=== PATIENT | female | born 1935 | race African-American/Black ===

== ENCOUNTER 2018-12-20 02:10 | Inpatient (IN) | payer MEDICARE, MEDICAID ==
[2018-12-20] VITALS (14 sets, daily range): BP systolic 92–122; BP diastolic 41–82
[~2018-12-20] VITALS: Ht 167.6 cm; Wt 96.7 kg
--- NOTE | 2018-12-20 02:23 | Emergency Room Report ---
History of Present Illness General Chief Complaint: Altered Mental Status Source: Medical Record, EMS Present Illness HPI This is an 83-year-old halfway patient with multiple medical problems including a colostomy bag. She presents with altered mental status and fever. Onset today. Per EMS, she is been having fever on and off all day. 2 hours prior to arrival she became unresponsive with hypoxia. On arrival she was unresponsive and hypoxic. Oxygenation was 72% on room air. She also very warm to the touch. At baseline, patient able to talk. History is limited because of her condition. No cough or congestion. Unknown vomiting. Allergies: Coded Allergies: ALLOPURINOL (Verified Allergy, Unknown, 12/20/18) Patient History Past Medical History: see triage record, old chart reviewed Past Surgical History: other Pertinent Family History: none Social History: Denies: smoking Now: No Immunizations: other Reviewed Nursing Documentation: PMH: Agreed; PSxH: Agreed Review of Systems Constitutional: Reports: fever, weakness Eye: Denies: eye pain, blurred vision ENT: Denies: ear pain, nose congestion, throat swelling Respiratory: Denies: cough, shortness of breath Cardiovascular: Denies: chest pain, palpitations Gastrointestinal: Denies: abdominal pain, diarrhea, nausea, vomiting Musculoskeletal: Denies: back pain, joint pain Skin: Denies: rash Neurological: Denies: headache, numbness Endocrine: Denies: increased thirst, increased urine Hematologic/Lymphatic: Denies: easy bruising All Other Systems: negative except mentioned in HPI Physical Exam Vital Signs Date Time Temp Pulse Resp B/P (MAP) Pulse Ox O2 Delivery O2 Flow Rate FiO2 12/20/18 02:11 99.9 116 22 94/44 (61) 94 Non-Rebreather 15.0 Vitals with fever, hypoxia, hypotension Sp02 EP Interpretation: reviewed, abnormal General Appearance: severe distress, lethargic, Chronically Ill Head: normocephalic, atraumatic Eyes: bilateral eye PERRL, bilateral eye EOMI ENT: dry mucus membranes Neck: full range of motion, supple, no meningismus Respiratory: chest non-tender, respiratory distress, decreased breath sounds, accessory muscle use, rhonchi Cardiovascular #1: regular rate, rhythm, no murmur, tachycardia Gastrointestinal: normal bowel sounds, non tender, no mass, no organomegaly, no bruit, non-distended, other - Reducible abdominal wall hernia Rectal: other - large sacral Stage 4 ulcer Musculoskeletal: back normal, normal range of motion Psychiatric: mood/affect normal Skin: warm/dry Procedures Critical Care Time Critical Care Time Critical care is mandated in this patient who presented with acute respiratory failure. Patient require my urgent intervention to attenuate the risks of metabolic collapse which may lead to cardiovascular collapse and . Critical care time is 35 minutes excluding any reportable procedure. Critical care time included evaluation, multiple reevaluation, looking at old charts, interpreting laboratory and diagnostic data, discussing case with patient and family and consultants, and charting. Intubation Intubation : Consent: Emergent Intubation Method: orotracheal Tube Size (cm): 7.5 Medications: Etomidate, Succinylcholine Breath Sounds after Intubation: equal Intubation Complications: no complications Post Intubation Xray: Yes Progress/Xray Impression: Successful intubation Attempts: One Patient Tolerated: Well Complications: None Medical Decision Making Diagnostic Impression: Primary Impression: Respiratory failure with hypoxia Qualified Codes: J96.01 - Acute respiratory failure with hypoxia Additional Impressions: Sepsis Qualified Codes: A41.9 - Sepsis, unspecified organism HCAP (healthcare-associated pneumonia) ARF (acute renal failure) Qualified Codes: N17.9 - Acute kidney failure, unspecified Severe dehydration Hyperglycemia due to type 2 diabetes mellitus Qualified Codes: E11.65 - Type 2 diabetes mellitus with hyperglycemia; 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 She has pneumonia. Initially she improved on BiPAP. However, oxygenation started dropping and she became more tachycardic. I decided to intubate her for airway protection. Her oropharynx shows very thick dry mucus. Chest x-ray showed worsening right hilar infiltrates I suspect she has a large mucous plugging. With suctioning and mechanical ventilation, oxygenation improved and blood pressure improved. IV fluids given per 30 cc/kg. Heart rate also improved. Patient will be admitted to the ICU under service of Dr. Walden. I contacted him for admission. Sepsis reevaluation: Vital signs: Rate 115, blood pressure 96/62, pulse oxygen 95% General: Improved mentation. More responsive to pain Cardiovascular: Improved heart rate. Pressure improved. Lungs: Improved aeration and oxygen saturation. Abdomen: Soft Extremities: No mottling Skin: Warm to touch Capillary refills: Less than 2 seconds Lab Results Impression Labs with severe electrolyte abnormality EKG Diagnostic Results Rate: tachycardiac Rhythm: NSR ST Segments: other - NSST changes Rhythm Strip Diag. Results Rate: 132 Rhythm: NSR Chest X-Ray Diagnostic Results Chest X-Ray Diagnostic Results #1: Chest X-Ray Ordered: Yes # of Views/Limited/Complete: 1 View Indication: Shortness of Breath EP Interpretation: Yes Interpretation: no effusion, no pneumothorax, other - perHilar infiltrates, right greater than left Impression: Other - Perihilar infiltrates Electronically Signed by: Bebeto Arechiga MD Chest X-Ray Diagnostic Results #2: Chest X-Ray Ordered: Yes # of Views/Limited/Complete: 1 View Indication: Shortness of Breath EP Interpretation: Yes Interpretation: no effusion, no pneumothorax, other - s/p intubation. RUL and perihilar infiltrates Impression: Other - s/p intubation. increasing rt upper lobe opacification. Electronically Signed by: Bebeto Arechiga MD Last Vital Signs Date Time Temp Pulse Resp B/P (MAP) Pulse Ox O2 Delivery O2 Flow Rate FiO2 12/20/18 02:11 99.9 116 22 94/44 (61) 94 Non-Rebreather 15.0 Status: improved Disposition: ADMITTED INPATIENT Condition: Critical Bebeto Arechiga MD Dec 20, 2018 02:23
[2018-12-20] MEDS ORDERED: ASCORBIC ACID500 MG GT (02:26)
[2018-12-20] MEDS ORDERED: CENTRUM GT (02:26)
[2018-12-20] MEDS ORDERED: Acetaminophen 650 MG SUPP RECTAL ONE (02:30)
[2018-12-20] MEDS ORDERED: Sodium Chloride 2,500 ML IVLG ONE (02:30)
[2018-12-20] MEDS ORDERED: ZOFRAN4 M3 GT (02:38)
[2018-12-20] MEDS ORDERED: ZINC SULFATE220 M1 GT (02:38)
[2018-12-20] MEDS ORDERED: ACETAMINOPHEN325 M1 GT (02:38)
[2018-12-20] MEDS ORDERED: HEPARIN SO5000 UNIT2 SUBQ (02:38)
[2018-12-20] MEDS ORDERED: RISPERIDONE0.25 MG GT (02:38)
[2018-12-20] MEDS ORDERED: HYDRALAZINE HCL10 MG ORAL (02:38)
[2018-12-20] MEDS ORDERED: SOD CITRATE-CIT15 ML PO (02:38)
[2018-12-20] MEDS ORDERED: PHOS-NAK PACKE1 EAC1 GT (02:38)
[2018-12-20] MEDS ORDERED: FOLIC ACID1 MG GT (02:38)
[2018-12-20] MEDS ORDERED: PRO-STAT LIQUID30 ML GT (02:38)
[2018-12-20 02:53] LABS: BILIRUBIN, URINE NEGATIVE (NEGATIVE); COLOR,URINE PALE YELLOW; GLUCOSE, URINE (UA) 2+ (NEGATIVE); KETONES,URINE NEGATIVE (NEGATIVE); LEUKOCYTE ESTERASE ,URINE 3+ (NEGATIVE); NITRITE,URINE NEGATIVE (NEGATIVE); PH,URINE 6 (4.5-8.0); PROTEIN,URINE 3+ (NEGATIVE); UROBILINOGEN,URINE NORMAL MG/DL (0.0-1.0)
[2018-12-20 03:02] LABS: HEMATOCRIT 37.1 % (37.0-47.0); HEMOGLOBIN 11.4 G/DL (12.0-16.0); MEAN CORPUSCULAR VOLUME 87 FL (80-99); PLATELET COUNT 399 K/UL (150-450); RED BLOOD COUNT 4.28 M/UL (4.20-5.40); RED CELL DISTRIBUTION WIDTH 16.6 % (11.6-14.8); WHITE BLOOD COUNT 19.9 K/UL (4.8-10.8)
[2018-12-20 03:04] LABS: APPEARANCE,URINE CLOUDY
[2018-12-20 03:12] LABS: ALANINE AMINOTRANSFERASE 23 U/L (12-78); ALBUMIN 2.4 G/DL (3.4-5.0); ALBUMIN/GLOBULIN RATIO 0.3 (1.0-2.7); ALKALINE PHOSPHATASE 134 U/L (46-116); ANION GAP 11 mmol/L (5-15); ASPARTATE AMINO TRANSFERASE 15 U/L (15-37); BILIRUBIN,TOTAL 0.2 MG/DL (0.2-1.0); BLOOD UREA NITROGEN 150 mg/dL (7-18); CARBON DIOXIDE 36 MMOL/L (21-32); CHLORIDE 112 MMOL/L (98-107); CKMB < 0.5 NG/ML (0.0-3.6); CREATINE KINASE 141 U/L (26-308); CREATININE 2.8 MG/DL (0.55-1.30); POTASSIUM 5.4 MMOL/L (3.5-5.1); SODIUM 158 MMOL/L (136-145)
[2018-12-20] MEDS ORDERED: Cefepime HCl 1 GM in D5W 55 ML IVPB ONE (03:15)
[2018-12-20] MEDS ORDERED: Enoxaparin 80mg Inj SUBQ ONE (03:15)
[2018-12-20] MEDS ORDERED: Insulin Human Regular 100units/ml 3ml IV ONE (04:00)
--- NOTE | 2018-12-20 04:48 | Emergency Room Report ---
History of Present Illness General Chief Complaint: Altered Mental Status Source: Medical Record, EMS Present Illness Allergies: Coded Allergies: ALLOPURINOL (Verified Allergy, Unknown, 12/20/18) Patient History Now: No Nursing Documentation-PMH Hx Hypertension: Yes Hx COPD: Yes - SOB Hx Gastrointestinal Problems: Yes - Dysphagia, Gastrostomy, Colostomy History Of Psychiatric Problem: Yes - psychosis Hx Cerebrovascular Accident: Yes - atherosclerosis of aorta, anemia Physical Exam Vital Signs Date Time Temp Pulse Resp B/P (MAP) Pulse Ox O2 Delivery O2 Flow Rate FiO2 12/20/18 02:11 99.9 116 22 94/44 (61) 94 Non-Rebreather 15.0 12/20/18 02:15 100 Procedures Central Line Central Line : Consent: Emergent Central Line Lumen: triple Maximal Sterile Barrier Tech: yes cap, yes mask, yes sterile gown, yes sterile gloves, yes large sterile sheet, yes hand hygiene, yes chlorhexidine prep Central Line Postion: internal jugular (R) Anesthesia: Lidocaine cc's of anesthesia: 5 Complications: none Central Line Post Position: sutured Attempts: One Patient Tolerated: Well Complications: None Medical Decision Making Diagnostic Impression: Primary Impression: Respiratory failure with hypoxia Qualified Codes: J96.01 - Acute respiratory failure with hypoxia Additional Impressions: Sacral decubitus ulcer, stage IV HCAP (healthcare-associated pneumonia) ARF (acute renal failure) Qualified Codes: N17.9 - Acute kidney failure, unspecified Hyperglycemia due to type 2 diabetes mellitus Qualified Codes: E11.65 - Type 2 diabetes mellitus with hyperglycemia; 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 increase areation. Impression: Other - s/p central line placement. Electronically Signed by: Bebeto Arechiga MD Last Vital Signs Date Time Temp Pulse Resp B/P (MAP) Pulse Ox O2 Delivery O2 Flow Rate FiO2 12/20/18 03:31 88 18 102/50 98 100 12/20/18 03:11 98.5 12/20/18 02:21 Bi-pap 12/20/18 02:21 15.0 Disposition: ADMITTED INPATIENT Condition: Critical Referrals: NON PHYSICIAN (PCP) Bebeto Arechiga MD Dec 20, 2018 04:48
[2018-12-20] MEDS ORDERED: Midazolam 2mg/2ml Inj IVP ONE (05:00)
[2018-12-20 07:56] LABS: ALANINE AMINOTRANSFERASE 19 U/L (12-78); ALBUMIN 1.4 G/DL (3.4-5.0); ALBUMIN/GLOBULIN RATIO 0.2 (1.0-2.7); ALKALINE PHOSPHATASE 89 U/L (46-116); ANION GAP 9 mmol/L (5-15); ASPARTATE AMINO TRANSFERASE 18 U/L (15-37); BILIRUBIN,TOTAL 0.2 MG/DL (0.2-1.0); BLOOD UREA NITROGEN 121 mg/dL (7-18); CALCIUM 7.9 MG/DL (8.5-10.1); CARBON DIOXIDE 27 MMOL/L (21-32); CHLORIDE 126 MMOL/L (98-107); CHOLESTEROL 95 MG/DL (< 200); CREATINE KINASE 125 U/L (26-308); CREATININE 2.1 MG/DL (0.55-1.30); FERRITIN 367 NG/ML (8-388); GAMMA GLUTAMYL TRANSPEPTIDASE 80 U/L (5-85); HDL CHOLESTEROL 38 MG/DL (40-60); PHOSPHORUS 3.3 MG/DL (2.5-4.9); POTASSIUM 3.5 MMOL/L (3.5-5.1); TRIGLYCERIDES 121 MG/DL (30-150)
[2018-12-20 07:58] LABS: SODIUM 161 MMOL/L (136-145)
[2018-12-20 08:09] LABS: BASOPHILS % (AUTO) 0.2 % (0.0-2.0); EOSINOPHILS % (AUTO) 0.5 % (0.0-3.0); HEMATOCRIT 26.8 % (37.0-47.0); HEMOGLOBIN 8.2 G/DL (12.0-16.0); MEAN CORPUSCULAR VOLUME 88 FL (80-99); MONOCYTES % (AUTO) 1.8 % (1.0-10.0); NEUTROPHILS % (AUTO) 82.6 % (45.0-75.0); PLATELET COUNT 262 K/UL (150-450); RED BLOOD COUNT 3.05 M/UL (4.20-5.40); RED CELL DISTRIBUTION WIDTH 16.4 % (11.6-14.8); WHITE BLOOD COUNT 14.5 K/UL (4.8-10.8)
[2018-12-20 08:31] LABS: AMMONIA 32 umol/L (11-32)
[2018-12-20 09:26] LABS: % IRON SATURATION 12 % (15-50); IRON 17 ug/dL (50-175); TOTAL IRON BINDING CAPACITY 144 ug/dL (250-450)
--- NOTE | 2018-12-20 09:46 | Diagnostic Imaging Report ---
Indication: Post line placement Technique: One view of the chest Comparison: 2 hours earlier Findings: Interim placement right jugular central venous catheter, tip which projects at the level the high right atrium. There is insufficient opacification of the right upper lobe, also evident previously and probably not significantly changed allowing for differences in rotation. There are overlying defibrillator paddles. There is some haziness at the left lateral lung base, may reflect some pleural fluid, not evident previously. Calcified granulomata are seen in the left lung and perihilar region. Stable satisfactory position of endotracheal tube. No pneumothorax Impression: Status post right jugular central venous catheter placement. No definite radiographically evident complication Apparent right upper lobe atelectasis, also evident previously. Suspect new or increased left pleural effusion
--- NOTE | 2018-12-20 09:50 | Critical Care Progress Note ---
Assessment/Plan Assessment/Plan Respiratory failure, acute sepsis hypotension sacral ulcer hypernatremia acute renal failure severe protein calorie malnutrition hypoxemia, severe hypercapnia PLAN care noted an reviewed hypervent hypoxemia- taper oxygen PEEP and add antibiotics hypotonic fluids supportive care ICU care medications/laboratory data/nursing notes/ICU care reviewed in detail note reviewed and edited care discussed with RN and RT ICU time spent 55 minutes Critical Care - Subjective Interval Events: on vent reviewed care and discussed Condition: critical EKG Rhythm: Sinus Tachycardia I&O: Intake and Output 12/19/18 12/20/18 18:59 06:59 Output Total 500 ml Balance -500 ml Output Urine Total 500 ml Critical Care - Objective ET-Tube: 7.5 ET Position: 23 Last 24 Hour Vital Signs Date Time Temp Pulse Resp B/P (MAP) Pulse Ox O2 Delivery O2 Flow Rate FiO2 12/20/18 08:30 97 15 100 12/20/18 08:00 Mechanical Ventilator 12/20/18 07:30 83/54 12/20/18 06:48 95 25 100 12/20/18 06:06 100 12/20/18 05:51 Mechanical Ventilator 12/20/18 05:41 98.5 98 18 98/60 100 Mechanical Ventilator 15.0 100 12/20/18 05:20 110 18 100 12/20/18 04:53 98 18 98/82 100 Mechanical Ventilator 100 12/20/18 03:31 88 18 102/50 98 100 12/20/18 03:11 98.5 12/20/18 02:52 117 28 100 12/20/18 02:21 101.2 142 22 94/44 90 Bi-pap 12/20/18 02:21 142 22 Non-Rebreather 15.0 12/20/18 02:15 144 44 98 Bi-Pap 100 12/20/18 02:15 144 44 98 Full Face 100 12/20/18 02:11 99.9 116 22 94/44 (61) 94 Non-Rebreather 15.0 Labs: Labs Test 12/20/18 02:10 12/20/18 02:30 12/20/18 03:35 12/20/18 03:54 White Blood Count 19.9 K/UL (4.8-10.8) Red Blood Count 4.28 M/UL (4.20-5.40) Hemoglobin 11.4 G/DL (12.0-16.0) Hematocrit 37.1 % (37.0-47.0) Mean Corpuscular Volume 87 FL (80-99) Mean Corpuscular Hemoglobin 26.7 PG (27.0-31.0) Mean Corpuscular Hemoglobin Concent 30.8 G/DL (32.0-36.0) Red Cell Distribution Width 16.6 % (11.6-14.8) Platelet Count 399 K/UL (150-450) Mean Platelet Volume 7.6 FL (6.5-10.1) Neutrophils (%) (Auto) % (45.0-75.0) Lymphocytes (%) (Auto) % (20.0-45.0) Monocytes (%) (Auto) % (1.0-10.0) Eosinophils (%) (Auto) % (0.0-3.0) Basophils (%) (Auto) % (0.0-2.0) Sodium Level 158 MMOL/L (136-145) Potassium Level 5.4 MMOL/L (3.5-5.1) Chloride Level 112 MMOL/L (98-107) Carbon Dioxide Level 36 MMOL/L (21-32) Anion Gap 11 mmol/L (5-15) Blood Urea Nitrogen 150 mg/dL (7-18) Creatinine 2.8 MG/DL (0.55-1.30) Estimat Glomerular Filtration Rate mL/min (>60) Glucose Level 528 MG/DL (74-106) Lactic Acid Level 3.80 mmol/L (0.4-2.0) 7.50 mmol/L (0.66-2.22) Calcium Level 10.0 MG/DL (8.5-10.1) Total Bilirubin 0.2 MG/DL (0.2-1.0) Aspartate Amino Transf (AST/SGOT) 15 U/L (15-37) Alanine Aminotransferase (ALT/SGPT) 23 U/L (12-78) Alkaline Phosphatase 134 U/L (46-116) Total Creatine Kinase 141 U/L (26-308) Creatine Kinase MB < 0.5 NG/ML (0.0-3.6) Creatine Kinase MB Relative Index 0.3 Troponin I 0.000 ng/mL (0.000-0.056) Total Protein 9.5 G/DL (6.4-8.2) Albumin 2.4 G/DL (3.4-5.0) Globulin 7.1 g/dL Albumin/Globulin Ratio 0.3 (1.0-2.7) Urine Color Pale yellow Urine Appearance Cloudy Urine pH 6 (4.5-8.0) Urine Specific [place] 1.015 (1.005-1.035) Urine Protein 3+ (NEGATIVE) Urine Glucose (UA) 2+ (NEGATIVE) Urine Ketones Negative (NEGATIVE) Urine Blood 5+ (NEGATIVE) Urine Nitrite Negative (NEGATIVE) Urine Bilirubin Negative (NEGATIVE) Urine Urobilinogen Normal MG/DL (0.0-1.0) Urine Leukocyte Esterase 3+ (NEGATIVE) Urine RBC Tntc /HPF (0 - 2) Urine WBC Tntc /HPF (0 - 2) Urine Squamous Epithelial Cells Few /LPF (NONE/OCC) Urine Bacteria Many /HPF (NONE) Arterial Blood pH 7.316 (7.350-7.450) Arterial Blood Partial Pressure CO2 46.1 mmHg (35.0-45.0) Arterial Blood Partial Pressure O2 73.0 mmHg (75.0-100.0) Arterial Blood HCO3 23.0 mmol/L (22.0-26.0) Arterial Blood Oxygen Saturation 92.0 % (95-100) Arterial Blood Base Excess -3.1 (-2-2) Brock Test Positive Test 12/20/18 07:00 12/20/18 08:00 Sodium Level 161 MMOL/L (136-145) Potassium Level 3.5 MMOL/L (3.5-5.1) Chloride Level 126 MMOL/L (98-107) Carbon Dioxide Level 27 MMOL/L (21-32) Anion Gap 9 mmol/L (5-15) Blood Urea Nitrogen 121 mg/dL (7-18) Creatinine 2.1 MG/DL (0.55-1.30) Estimat Glomerular Filtration Rate mL/min (>60) Glucose Level 386 MG/DL (74-106) Lactic Acid Level 2.40 mmol/L (0.4-2.0) Uric Acid 8.3 MG/DL (2.6-7.2) Calcium Level 7.9 MG/DL (8.5-10.1) Phosphorus Level 3.3 MG/DL (2.5-4.9) Magnesium Level 1.7 MG/DL (1.8-2.4) Iron Level 17 ug/dL (50-175) Total Iron Binding Capacity 144 ug/dL (250-450) Percent Iron Saturation 12 % (15-50) Unsaturated Iron Binding 127 ug/dL (112-346) Ferritin 367 NG/ML (8-388) Total Bilirubin 0.2 MG/DL (0.2-1.0) Gamma Glutamyl Transpeptidase 80 U/L (5-85) Aspartate Amino Transf (AST/SGOT) 18 U/L (15-37) Alanine Aminotransferase (ALT/SGPT) 19 U/L (12-78) Alkaline Phosphatase 89 U/L (46-116) Ammonia 32 umol/L (11-32) Total Creatine Kinase 125 U/L (26-308) Troponin I 0.135 ng/mL (0.000-0.056) C-Reactive Protein, Quantitative 21.5 mg/dL (0.00-0.90) Pro-B-Type Natriuretic Peptide 861 pg/mL (0-125) Total Protein 7.2 G/DL (6.4-8.2) Albumin 1.4 G/DL (3.4-5.0) Globulin 5.8 g/dL Albumin/Globulin Ratio 0.2 (1.0-2.7) Triglycerides Level 121 MG/DL (30-150) Cholesterol Level 95 MG/DL (< 200) LDL Cholesterol 48 mg/dL (<100) HDL Cholesterol 38 MG/DL (40-60) Cholesterol/HDL Ratio 2.5 (3.3-4.4) Vitamin B12 Level 653 PG/ML (193-986) Folate 79.6 NG/ML (8.6-58.9) Thyroid Stimulating Hormone (TSH) 1.246 uiU/mL (0.358-3.740) White Blood Count 14.5 K/UL (4.8-10.8) Red Blood Count 3.05 M/UL (4.20-5.40) Hemoglobin 8.2 G/DL (12.0-16.0) Hematocrit 26.8 % (37.0-47.0) Mean Corpuscular Volume 88 FL (80-99) Mean Corpuscular Hemoglobin 27.0 PG (27.0-31.0) Mean Corpuscular Hemoglobin Concent 30.7 G/DL (32.0-36.0) Red Cell Distribution Width 16.4 % (11.6-14.8) Platelet Count 262 K/UL (150-450) Mean Platelet Volume 7.2 FL (6.5-10.1) Neutrophils (%) (Auto) 82.6 % (45.0-75.0) Lymphocytes (%) (Auto) 15.0 % (20.0-45.0) Monocytes (%) (Auto) 1.8 % (1.0-10.0) Eosinophils (%) (Auto) 0.5 % (0.0-3.0) Basophils (%) (Auto) 0.2 % (0.0-2.0) Objective: Sp02 EP Interpretation: reviewed, normal General Appearance: normal inspection, well appearing, no apparent distress, sedated Head: normocephalic, atraumatic Eyes: bilateral eye normal inspection ENT: oral ETT Neck: normal inspection, full range of motion, supple, no meningismus, carotid 2+ Respiratory: decreased breath sounds, moderate breath sounds Cardiovascular #1: regular rhythm, no murmur without MRG; tachy Gastrointestinal: non tender, soft, non-distended, no guarding, no rebound Musculoskeletal: no CCE Neurologic: sedated Micro: Microbiology Date/Time Source Procedure Growth Status 12/20/18 04:00 Rectum Received Accucheck: 490 Juan Flanagan MD Dec 20, 2018 09:50
--- NOTE | 2018-12-20 10:58 | Consultation ---
Consult Note Consult Note This is an 83-year-old assisted patient with multiple medical problems including a colostomy bag. She presents with altered mental status and fever. Onset today. Per EMS, she is been having fever on and off all day. 2 hours prior to arrival she became unresponsive with hypoxia. On arrival she was unresponsive and hypoxic. Oxygenation was 72% on room air. She also very warm to the touch. At baseline, patient able to talk. History is limited because of her condition. No cough or congestion. Unknown vomiting. Allergies: Coded Allergies: ALLOPURINOL (Verified Allergy, Unknown, 12/20/18) rxamined in ICU on Vent discussed with HELEN Albarado Data reviewed . Assessment/Plan Acute renal failure- Multifactorial, Pre Renal on Renal DM OOC Respiratory failure, acute- on Vent in ICU sepsis / Shock sacral ulcer hypernatremia due to water deficit severe protein calorie malnutrition and hypoalbuminemia hypoxemia, severe PEG COlostomy Severe Anemia underlying fluids- water via GT antibiotics pressors pulm support 2 Units PRBCs Servando Cifuentes MD Dec 20, 2018 10:58
--- NOTE | 2018-12-20 11:01 | Diagnostic Imaging Report ---
Indication: Shortness of breath Technique: One view of the chest Comparison: none Findings: Patient is rotated to the left. Left hemidiaphragm is somewhat obscured and the left costophrenic angle is blunted, pleural effusion deemed likely. There is right perihilar and infrahilar infiltrate noted. The remainder the lungs are clear. Calcified granuloma is seen in the left midlung. Calcified granulomatous nodes are also seen in the left pulmonary hilum and mediastinum. Impression: Left-sided pleural effusion and possible left basilar parenchymal consolidation Right perihilar infiltrate Evidence old granulomatous disease This agrees with the preliminary interpretation provided overnight by [facility] service.
--- NOTE | 2018-12-20 11:05 | Diagnostic Imaging Report ---
Indication: Post intubation Technique: One view of the chest Comparison: 20 minutes earlier Findings: Interim endotracheal intubation, endotracheal tube tip projecting approximately 5 cm above the wanda, in satisfactory position. Interim development of atelectasis of the right upper lobe. There is resultant elevation of the right hemidiaphragm. Interim improvement in aeration of the left lung, with some residual atelectasis at the left lung base. Calcified granulomata are again demonstrated on the left. Impression: Satisfactory endotracheal intubation Interim complete atelectasis of the right upper lobe Improved aeration of the left lung Other stable findings as noted. This agrees with the preliminary interpretation provided overnight by [facility] service.
--- NOTE | 2018-12-20 11:28 | Consultation ---
History of Present Illness General Chief Complaint: Altered Mental Status Present Illness Allergies: Coded Allergies: ALLOPURINOL (Verified Allergy, Unknown, 12/20/18) Medication History Scheduled Amino Acids/Protein Hydrolys (Pro-Stat Liquid), 30 ML GT THREE TIMES A DAY, ( Reported) Ascorbic Acid* (Ascorbic Acid*), 500 MG GT DAILY, (Reported) Citric Acid/Sodium Citrate (Sod Citrate-Citric Acid Soln), 30 ML PO BID, ( Reported) Folic Acid* (Folic Acid*), 1 MG GT DAILY, (Reported) Heparin Sod (Porcine) (Heparin Sodium*), 5,000 UNITS SUBQ EVERY 12 HOURS, ( Reported) Naph,Mb-Db/K Ph,Mbdb (Phos-Nak Packet), 1 EACH GT TID, (Reported) Risperidone (Risperidone), 0.25 MG GT HS, (Reported) Zinc Sulfate (Zinc Sulfate*), 220 MG GT DAILY, (Reported) [centrum liquid], 15 ML GT DAILY, (Reported) Scheduled PRN Acetaminophen* (Acetaminophen 325MG Tablet*), 325 MG GT Q4H PRN for Mild Pain/ Temp > 100.5, (Reported) Hydralazine Hcl* (Hydralazine Hcl*), 10 MG ORAL Q4HR PRN for For High Blood Pressure, (Reported) Ondansetron* (Zofran*), 4 MG GT Q6H PRN for Nausea & Vomiting, (Reported) Patient History Healthcare decision maker Resuscitation status Full Code Advanced Directive on File No Physical Exam Last 24 Hour Vital Signs Date Time Temp Pulse Resp B/P (MAP) Pulse Ox O2 Delivery O2 Flow Rate FiO2 12/20/18 10:34 107 15 100 12/20/18 08:30 97 15 100 12/20/18 08:00 Mechanical Ventilator 12/20/18 07:30 83/54 12/20/18 06:48 95 25 100 12/20/18 06:06 100 12/20/18 05:51 Mechanical Ventilator 12/20/18 05:41 98.5 98 18 98/60 100 Mechanical Ventilator 15.0 100 12/20/18 05:20 110 18 100 12/20/18 04:53 98 18 98/82 100 Mechanical Ventilator 100 12/20/18 03:31 88 18 102/50 98 100 12/20/18 03:11 98.5 12/20/18 02:52 117 28 100 12/20/18 02:21 101.2 142 22 94/44 90 Bi-pap 12/20/18 02:21 142 22 Non-Rebreather 15.0 12/20/18 02:15 144 44 98 Bi-Pap 100 12/20/18 02:15 144 44 98 Full Face 100 12/20/18 02:11 99.9 116 22 94/44 (61) 94 Non-Rebreather 15.0 Intake and Output 12/19/18 12/20/18 18:59 06:59 Output Total 500 ml Balance -500 ml Output Urine Total 500 ml Laboratory Tests Test 12/20/18 02:10 12/20/18 02:30 12/20/18 03:35 12/20/18 03:54 White Blood Count 19.9 K/UL (4.8-10.8) H Red Blood Count 4.28 M/UL (4.20-5.40) Hemoglobin 11.4 G/DL (12.0-16.0) L Hematocrit 37.1 % (37.0-47.0) Mean Corpuscular Volume 87 FL (80-99) Mean Corpuscular Hemoglobin 26.7 PG (27.0-31.0) L Mean Corpuscular Hemoglobin Concent 30.8 G/DL (32.0-36.0) L Red Cell Distribution Width 16.6 % (11.6-14.8) H Platelet Count 399 K/UL (150-450) Mean Platelet Volume 7.6 FL (6.5-10.1) Neutrophils (%) (Auto) % (45.0-75.0) Lymphocytes (%) (Auto) % (20.0-45.0) Monocytes (%) (Auto) % (1.0-10.0) Eosinophils (%) (Auto) % (0.0-3.0) Basophils (%) (Auto) % (0.0-2.0) Sodium Level 158 MMOL/L (136-145) H Potassium Level 5.4 MMOL/L (3.5-5.1) H Chloride Level 112 MMOL/L (98-107) H Carbon Dioxide Level 36 MMOL/L (21-32) H Anion Gap 11 mmol/L (5-15) Blood Urea Nitrogen 150 mg/dL (7-18) H Creatinine 2.8 MG/DL (0.55-1.30) H Estimat Glomerular Filtration Rate mL/min (>60) Glucose Level 528 MG/DL (74-106) *H Lactic Acid Level 3.80 mmol/L (0.4-2.0) H 7.50 mmol/L (0.66-2.22) H Calcium Level 10.0 MG/DL (8.5-10.1) Total Bilirubin 0.2 MG/DL (0.2-1.0) Aspartate Amino Transf (AST/SGOT) 15 U/L (15-37) Alanine Aminotransferase (ALT/SGPT) 23 U/L (12-78) Alkaline Phosphatase 134 U/L (46-116) H Total Creatine Kinase 141 U/L (26-308) Creatine Kinase MB < 0.5 NG/ML (0.0-3.6) Creatine Kinase MB Relative Index 0.3 Troponin I 0.000 ng/mL (0.000-0.056) Total Protein 9.5 G/DL (6.4-8.2) H Albumin 2.4 G/DL (3.4-5.0) L Globulin 7.1 g/dL Albumin/Globulin Ratio 0.3 (1.0-2.7) L Urine Color Pale yellow Urine Appearance Cloudy Urine pH 6 (4.5-8.0) Urine Specific [place] 1.015 (1.005-1.035) Urine Protein 3+ (NEGATIVE) H Urine Glucose (UA) 2+ (NEGATIVE) H Urine Ketones Negative (NEGATIVE) Urine Blood 5+ (NEGATIVE) H Urine Nitrite Negative (NEGATIVE) Urine Bilirubin Negative (NEGATIVE) Urine Urobilinogen Normal MG/DL (0.0-1.0) Urine Leukocyte Esterase 3+ (NEGATIVE) H Urine RBC Tntc /HPF (0 - 2) H Urine WBC Tntc /HPF (0 - 2) H Urine Squamous Epithelial Cells Few /LPF (NONE/OCC) Urine Bacteria Many /HPF (NONE) H Arterial Blood pH 7.316 (7.350-7.450) Arterial Blood Partial Pressure CO2 46.1 mmHg (35.0-45.0) H Arterial Blood Partial Pressure O2 73.0 mmHg (75.0-100.0) L Arterial Blood HCO3 23.0 mmol/L (22.0-26.0) Arterial Blood Oxygen Saturation 92.0 % (95-100) L Arterial Blood Base Excess -3.1 (-2-2) L Brock Test Positive Test 12/20/18 07:00 12/20/18 08:00 Sodium Level 161 MMOL/L (136-145) *H Potassium Level 3.5 MMOL/L (3.5-5.1) Chloride Level 126 MMOL/L (98-107) H Carbon Dioxide Level 27 MMOL/L (21-32) Anion Gap 9 mmol/L (5-15) Blood Urea Nitrogen 121 mg/dL (7-18) H Creatinine 2.1 MG/DL (0.55-1.30) H Estimat Glomerular Filtration Rate mL/min (>60) Glucose Level 386 MG/DL (74-106) #H Lactic Acid Level 2.40 mmol/L (0.4-2.0) H Uric Acid 8.3 MG/DL (2.6-7.2) H Calcium Level 7.9 MG/DL (8.5-10.1) #L Phosphorus Level 3.3 MG/DL (2.5-4.9) Magnesium Level 1.7 MG/DL (1.8-2.4) L Iron Level 17 ug/dL (50-175) L Total Iron Binding Capacity 144 ug/dL (250-450) L Percent Iron Saturation 12 % (15-50) L Unsaturated Iron Binding 127 ug/dL (112-346) Ferritin 367 NG/ML (8-388) Total Bilirubin 0.2 MG/DL (0.2-1.0) Gamma Glutamyl Transpeptidase 80 U/L (5-85) Aspartate Amino Transf (AST/SGOT) 18 U/L (15-37) Alanine Aminotransferase (ALT/SGPT) 19 U/L (12-78) Alkaline Phosphatase 89 U/L (46-116) Ammonia 32 umol/L (11-32) Total Creatine Kinase 125 U/L (26-308) Troponin I 0.135 ng/mL (0.000-0.056) C-Reactive Protein, Quantitative 21.5 mg/dL (0.00-0.90) H Pro-B-Type Natriuretic Peptide 861 pg/mL (0-125) H Total Protein 7.2 G/DL (6.4-8.2) Albumin 1.4 G/DL (3.4-5.0) L Globulin 5.8 g/dL Albumin/Globulin Ratio 0.2 (1.0-2.7) L Triglycerides Level 121 MG/DL (30-150) Cholesterol Level 95 MG/DL (< 200) LDL Cholesterol 48 mg/dL (<100) HDL Cholesterol 38 MG/DL (40-60) L Cholesterol/HDL Ratio 2.5 (3.3-4.4) L Vitamin B12 Level 653 PG/ML (193-986) Folate 79.6 NG/ML (8.6-58.9) H Thyroid Stimulating Hormone (TSH) 1.246 uiU/mL (0.358-3.740) White Blood Count 14.5 K/UL (4.8-10.8) H Red Blood Count 3.05 M/UL (4.20-5.40) L Hemoglobin 8.2 G/DL (12.0-16.0) L Hematocrit 26.8 % (37.0-47.0) L Mean Corpuscular Volume 88 FL (80-99) Mean Corpuscular Hemoglobin 27.0 PG (27.0-31.0) Mean Corpuscular Hemoglobin Concent 30.7 G/DL (32.0-36.0) L Red Cell Distribution Width 16.4 % (11.6-14.8) H Platelet Count 262 K/UL (150-450) Mean Platelet Volume 7.2 FL (6.5-10.1) Neutrophils (%) (Auto) 82.6 % (45.0-75.0) H Lymphocytes (%) (Auto) 15.0 % (20.0-45.0) L Monocytes (%) (Auto) 1.8 % (1.0-10.0) Eosinophils (%) (Auto) 0.5 % (0.0-3.0) Basophils (%) (Auto) 0.2 % (0.0-2.0) Hemoglobin A1c 9.5 % (4.3-6.0) H Cortisol AM Sample Pending Microbiology Date/Time Source Procedure Growth Status 12/20/18 04:00 Rectum Received Height (Feet): 5 Height (Inches): 6.00 Weight (Pounds): 170 Medications Current Medications Medications (Trade) Dose Ordered Sig/Nora Route PRN Reason Start Time Stop Time Status Last Admin Dose Admin Acetaminophen (Tylenol) 650 mg Q4H PRN ORAL Mild Pain/Temp > 100.5 12/20/18 06:30 01/19/19 06:29 Dextrose (Dextrose 50%) 25 ml Q30M PRN IV Hypoglycemia 12/20/18 09:45 01/19/19 09:44 Dextrose (Dextrose 50%) 50 ml Q30M PRN IV Hypoglycemia 12/20/18 09:45 01/19/19 09:44 Insulin Aspart (NovoLOG) Q6HR SUBQ 12/20/18 12:00 01/19/19 11:59 Lansoprazole (Prevacid) 30 mg BID GT 12/20/18 18:00 01/20/19 08:59 Lansoprazole (Prevacid) 30 mg ONCE GT 12/20/18 11:00 12/20/18 12:00 Magnesium Sulfate 100 ml @ 100 mls/hr Q1H IVPB 12/20/18 10:30 12/20/18 12:29 Norepinephrine Bitartrate 4 mg/ Dextrose 250 ml @ 0 mls/hr Q24H IV 12/20/18 07:00 01/19/19 06:59 12/20/18 07:30 Piperacillin Sod/ Tazobactam Sod 3.375 gm/Sodium Chloride 110 ml @ 27.5 mls/hr Q8HR IVPB 12/20/18 12:00 12/27/18 11:59 Sodium Chloride 1,000 ml @ 150 mls/hr Q6H40M IV 12/20/18 07:00 01/19/19 06:59 12/20/18 07:14 Vancomycin HCl (Vanco rx to dose) 1 ea DAILY PRN MISC Per rx protocol 12/20/18 11:00 01/19/19 10:59 Vancomycin HCl/ Dextrose 275 ml @ 137.5 mls/ hr ONCE IVPB 12/20/18 12:00 12/20/18 14:00 Assessment/Plan Assessment/Plan: Hematology Consultation REQ : Danial Walden RFC: Anemia and Ftt DOS: 12/20/18 HPI This is an 83-year-old [facility] patient with multiple medical problems including a colostomy bag. She presents with altered mental status and fever. Onset today. Per EMS, she is been having fever on and off all day. 2 hours prior to arrival she became unresponsive with hypoxia. On arrival she was unresponsive and hypoxic. Oxygenation was 72% on room air. She also very warm to the touch. At baseline, patient able to talk. History is limited because of her condition. No cough or congestion. Unknown vomiting. was intubated and started on fluids and presors and currently is in the icu. Coded Allergies: ALLOPURINOL (Verified Allergy, Unknown, 12/20/18) Past Medical History: see triage record, old chart reviewed Past Surgical History: other Pertinent Family History: none Social History: Denies: smoking Now: No Immunizations: other Reviewed Nursing Documentation: PMH: Agreed; PSxH: Agree ROS Constitutional: Reports: fever, weakness Eye: Denies: eye pain, blurred vision ENT: Denies: ear pain, nose congestion, throat swelling Respiratory: Denies: cough, shortness of breath Cardiovascular: Denies: chest pain, palpitations Gastrointestinal: Denies: abdominal pain, diarrhea, nausea, vomiting Musculoskeletal: Denies: back pain, joint pain Skin: Denies: rash Neurological: Denies: headache, numbness Endocrine: Denies: increased thirst, increased urine Hematologic/Lymphatic: Denies: easy bruising All Other Systems: negative except mentioned in HPI PE Vital Signs Date Time Temp Pulse Resp B/P (MAP) Pulse Ox O2 Delivery O2 Flow Rate FiO2 12/20/18 02:11 99.9 116 22 94/44 (61) 94 Non-Rebreather 15.0 Sp02 EP Interpretation: reviewed General Appearance: severe distress, lethargic, Chronically Ill Head: normocephalic, atraumatic Eyes: bilateral eye PERRL, bilateral eye EOMI ENT: dry mucus membranes Neck: full range of motion, supple, no meningismus Respiratory: chest non-tender, respiratory distress, rhonchi Cardiovascular: regular rate, rhythm, no murmur, tachycardia Gastrointestinal: normal bowel sounds, non tender- Reducible abdominal wall hernia Rectal: other - large sacral Stage 4 ulcer Musculoskeletal: back normal, normal range of motion Psychiatric: mood/affect normal Skin: warm/dry Current Medications Medications (Trade) Dose Ordered Sig/Nora Route PRN Reason Start Time Stop Time Status Last Admin Dose Admin Acetaminophen (Tylenol) 650 mg Q4H PRN ORAL Mild Pain/Temp > 100.5 12/20/18 06:30 01/19/19 06:29 Dextrose (Dextrose 50%) 25 ml Q30M PRN IV Hypoglycemia 12/20/18 09:45 01/19/19 09:44 Dextrose (Dextrose 50%) 50 ml Q30M PRN IV Hypoglycemia 12/20/18 09:45 01/19/19 09:44 Insulin Aspart (NovoLOG) Q6HR SUBQ 12/20/18 12:00 01/19/19 11:59 Lansoprazole (Prevacid) 30 mg BID GT 12/20/18 18:00 01/20/19 08:59 Lansoprazole (Prevacid) 30 mg ONCE GT 12/20/18 11:00 12/20/18 12:00 Magnesium Sulfate 100 ml @ 100 mls/hr Q1H IVPB 12/20/18 10:30 12/20/18 12:29 Norepinephrine Bitartrate 4 mg/ Dextrose 250 ml @ 0 mls/hr Q24H IV 12/20/18 07:00 01/19/19 06:59 12/20/18 07:30 Piperacillin Sod/ Tazobactam Sod 3.375 gm/Sodium Chloride 110 ml @ 27.5 mls/hr Q8HR IVPB 12/20/18 12:00 12/27/18 11:59 Sodium Chloride 1,000 ml @ 150 mls/hr Q6H40M IV 12/20/18 07:00 01/19/19 06:59 12/20/18 07:14 Vancomycin HCl (Vanco rx to dose) 1 ea DAILY PRN MISC Per rx protocol 12/20/18 11:00 01/19/19 10:59 Vancomycin HCl/ Dextrose 275 ml @ 137.5 mls/ hr ONCE IVPB 12/20/18 12:00 12/20/18 14:00 Laboratory Tests Test 12/20/18 02:10 12/20/18 02:30 12/20/18 03:35 12/20/18 03:54 White Blood Count 19.9 K/UL (4.8-10.8) H Red Blood Count 4.28 M/UL (4.20-5.40) Hemoglobin 11.4 G/DL (12.0-16.0) L Hematocrit 37.1 % (37.0-47.0) Mean Corpuscular Volume 87 FL (80-99) Mean Corpuscular Hemoglobin 26.7 PG (27.0-31.0) L Mean Corpuscular Hemoglobin Concent 30.8 G/DL (32.0-36.0) L Red Cell Distribution Width 16.6 % (11.6-14.8) H Platelet Count 399 K/UL (150-450) Mean Platelet Volume 7.6 FL (6.5-10.1) Neutrophils (%) (Auto) % (45.0-75.0) Lymphocytes (%) (Auto) % (20.0-45.0) Monocytes (%) (Auto) % (1.0-10.0) Eosinophils (%) (Auto) % (0.0-3.0) Basophils (%) (Auto) % (0.0-2.0) Sodium Level 158 MMOL/L (136-145) H Potassium Level 5.4 MMOL/L (3.5-5.1) H Chloride Level 112 MMOL/L (98-107) H Carbon Dioxide Level 36 MMOL/L (21-32) H Anion Gap 11 mmol/L (5-15) Blood Urea Nitrogen 150 mg/dL (7-18) H Creatinine 2.8 MG/DL (0.55-1.30) H Estimat Glomerular Filtration Rate mL/min (>60) Glucose Level 528 MG/DL (74-106) *H Lactic Acid Level 3.80 mmol/L (0.4-2.0) H 7.50 mmol/L (0.66-2.22) H Calcium Level 10.0 MG/DL (8.5-10.1) Total Bilirubin 0.2 MG/DL (0.2-1.0) Aspartate Amino Transf (AST/SGOT) 15 U/L (15-37) Alanine Aminotransferase (ALT/SGPT) 23 U/L (12-78) Alkaline Phosphatase 134 U/L (46-116) H Total Creatine Kinase 141 U/L (26-308) Creatine Kinase MB < 0.5 NG/ML (0.0-3.6) Creatine Kinase MB Relative Index 0.3 Troponin I 0.000 ng/mL (0.000-0.056) Total Protein 9.5 G/DL (6.4-8.2) H Albumin 2.4 G/DL (3.4-5.0) L Globulin 7.1 g/dL Albumin/Globulin Ratio 0.3 (1.0-2.7) L Urine Color Pale yellow Urine Appearance Cloudy Urine pH 6 (4.5-8.0) Urine Specific [place] 1.015 (1.005-1.035) Urine Protein 3+ (NEGATIVE) H Urine Glucose (UA) 2+ (NEGATIVE) H Urine Ketones Negative (NEGATIVE) Urine Blood 5+ (NEGATIVE) H Urine Nitrite Negative (NEGATIVE) Urine Bilirubin Negative (NEGATIVE) Urine Urobilinogen Normal MG/DL (0.0-1.0) Urine Leukocyte Esterase 3+ (NEGATIVE) H Urine RBC Tntc /HPF (0 - 2) H Urine WBC Tntc /HPF (0 - 2) H Urine Squamous Epithelial Cells Few /LPF (NONE/OCC) Urine Bacteria Many /HPF (NONE) H Arterial Blood pH 7.316 (7.350-7.450) Arterial Blood Partial Pressure CO2 46.1 mmHg (35.0-45.0) H Arterial Blood Partial Pressure O2 73.0 mmHg (75.0-100.0) L Arterial Blood HCO3 23.0 mmol/L (22.0-26.0) Arterial Blood Oxygen Saturation 92.0 % (95-100) L Arterial Blood Base Excess -3.1 (-2-2) L Brock Test Positive Test 12/20/18 07:00 12/20/18 08:00 Sodium Level 161 MMOL/L (136-145) *H Potassium Level 3.5 MMOL/L (3.5-5.1) Chloride Level 126 MMOL/L (98-107) H Carbon Dioxide Level 27 MMOL/L (21-32) Anion Gap 9 mmol/L (5-15) Blood Urea Nitrogen 121 mg/dL (7-18) H Creatinine 2.1 MG/DL (0.55-1.30) H Estimat Glomerular Filtration Rate mL/min (>60) Glucose Level 386 MG/DL (74-106) #H Lactic Acid Level 2.40 mmol/L (0.4-2.0) H Uric Acid 8.3 MG/DL (2.6-7.2) H Calcium Level 7.9 MG/DL (8.5-10.1) #L Phosphorus Level 3.3 MG/DL (2.5-4.9) Magnesium Level 1.7 MG/DL (1.8-2.4) L Iron Level 17 ug/dL (50-175) L Total Iron Binding Capacity 144 ug/dL (250-450) L Percent Iron Saturation 12 % (15-50) L Unsaturated Iron Binding 127 ug/dL (112-346) Ferritin 367 NG/ML (8-388) Total Bilirubin 0.2 MG/DL (0.2-1.0) Gamma Glutamyl Transpeptidase 80 U/L (5-85) Aspartate Amino Transf (AST/SGOT) 18 U/L (15-37) Alanine Aminotransferase (ALT/SGPT) 19 U/L (12-78) Alkaline Phosphatase 89 U/L (46-116) Ammonia 32 umol/L (11-32) Total Creatine Kinase 125 U/L (26-308) Troponin I 0.135 ng/mL (0.000-0.056) C-Reactive Protein, Quantitative 21.5 mg/dL (0.00-0.90) H Pro-B-Type Natriuretic Peptide 861 pg/mL (0-125) H Total Protein 7.2 G/DL (6.4-8.2) Albumin 1.4 G/DL (3.4-5.0) L Globulin 5.8 g/dL Albumin/Globulin Ratio 0.2 (1.0-2.7) L Triglycerides Level 121 MG/DL (30-150) Cholesterol Level 95 MG/DL (< 200) LDL Cholesterol 48 mg/dL (<100) HDL Cholesterol 38 MG/DL (40-60) L Cholesterol/HDL Ratio 2.5 (3.3-4.4) L Vitamin B12 Level 653 PG/ML (193-986) Folate 79.6 NG/ML (8.6-58.9) H Thyroid Stimulating Hormone (TSH) 1.246 uiU/mL (0.358-3.740) White Blood Count 14.5 K/UL (4.8-10.8) H Red Blood Count 3.05 M/UL (4.20-5.40) L Hemoglobin 8.2 G/DL (12.0-16.0) L Hematocrit 26.8 % (37.0-47.0) L Mean Corpuscular Volume 88 FL (80-99) Mean Corpuscular Hemoglobin 27.0 PG (27.0-31.0) Mean Corpuscular Hemoglobin Concent 30.7 G/DL (32.0-36.0) L Red Cell Distribution Width 16.4 % (11.6-14.8) H Platelet Count 262 K/UL (150-450) Mean Platelet Volume 7.2 FL (6.5-10.1) Neutrophils (%) (Auto) 82.6 % (45.0-75.0) H Lymphocytes (%) (Auto) 15.0 % (20.0-45.0) L Monocytes (%) (Auto) 1.8 % (1.0-10.0) Eosinophils (%) (Auto) 0.5 % (0.0-3.0) Basophils (%) (Auto) 0.2 % (0.0-2.0) Hemoglobin A1c 9.5 % (4.3-6.0) H Cortisol AM Sample Pending Assessment and Recs: # Anemia of chronic disease due to underlying chronic medical issues, multifactorial , ferritin 366, tibc 144 --> Anemia workup has been ordered, rule out gi bleed --> No evidence of hemolysis is noted, peripheral smear has been reviewed. --> Hgb goal >7. Transfuse prn. --> Epogen or iron at this time is not particularly indicated --> Medications have been reviewed --> low threshold for gi evaluation in case has occult + # Leukocytosis/elevated white blood cell count, is due to underlying sepsis urine infection+ --> have reviewed peripheral smear and bandemia/neutrophilia noted --> continue antibiotics if they have been started by ID team --> monitor for resolution ==> per id eval # Respiratory failure with hypoxia --> s/p vent placement intubated 12/20/18 --> pulm eval # Sacral decubitus ulcer, stage IV --> per surg # HCAP (healthcare-associated pneumonia) # ARF (acute renal failure) --> per renal # Hyperglycemia due to type 2 diabetes mellitus # Acute metabolic encephalopathy # Severe dehydration The timing of this note does not necessarily reflect the time of the patient was seen. GREATLY APPRECIATE CONSULTATION. Tobin Stover MD Dec 20, 2018 11:28
[2018-12-20] MEDS: NovoLOG Insulin Flexpen SUBQ SCH ×3 (11:47→23:50)
[2018-12-20] MEDS: Piperacillin/Tazobactam 3.375 GM in NS 110 ML IVPB SCH ×2 (12:00→22:00)
[2018-12-20] MEDS ORDERED: Vancomycin 1.5gm Premix IVPB SCH (12:00)
--- NOTE | 2018-12-20 15:15 | Cardiac Electrophysiology PN ---
Subjective Subjective [id number] Objective Last 24 Hour Vital Signs Date Time Temp Pulse Resp B/P (MAP) Pulse Ox O2 Delivery O2 Flow Rate FiO2 12/20/18 13:24 107 26 100 12/20/18 13:00 107/68 12/20/18 12:00 Mechanical Ventilator 12/20/18 12:00 110/59 12/20/18 12:00 100 12/20/18 12:00 109 12/20/18 11:00 112/58 12/20/18 10:34 107 15 100 12/20/18 10:00 111/56 12/20/18 09:00 109/66 12/20/18 08:30 97 15 100 12/20/18 08:00 97 12/20/18 08:00 Mechanical Ventilator 12/20/18 08:00 149/63 12/20/18 07:30 83/54 12/20/18 06:48 95 25 100 12/20/18 06:06 100 12/20/18 05:51 Mechanical Ventilator 12/20/18 05:41 98.5 98 18 98/60 100 Mechanical Ventilator 15.0 100 12/20/18 05:20 110 18 100 12/20/18 04:53 98 18 98/82 100 Mechanical Ventilator 100 12/20/18 03:31 88 18 102/50 98 100 12/20/18 03:11 98.5 12/20/18 02:52 117 28 100 12/20/18 02:21 101.2 142 22 94/44 90 Bi-pap 12/20/18 02:21 142 22 Non-Rebreather 15.0 12/20/18 02:15 144 44 98 Bi-Pap 100 12/20/18 02:15 144 44 98 Full Face 100 12/20/18 02:11 99.9 116 22 94/44 (61) 94 Non-Rebreather 15.0 Intake and Output 12/19/18 12/20/18 18:59 06:59 Output Total 500 ml Balance -500 ml Output Urine Total 500 ml Laboratory Tests Test 12/20/18 01:15 12/20/18 02:10 12/20/18 02:30 12/20/18 03:35 Troponin I 0.175 ng/mL (0.000-0.056) 0.000 ng/mL (0.000-0.056) White Blood Count 19.9 K/UL (4.8-10.8) H Red Blood Count 4.28 M/UL (4.20-5.40) Hemoglobin 11.4 G/DL (12.0-16.0) L Hematocrit 37.1 % (37.0-47.0) Mean Corpuscular Volume 87 FL (80-99) Mean Corpuscular Hemoglobin 26.7 PG (27.0-31.0) L Mean Corpuscular Hemoglobin Concent 30.8 G/DL (32.0-36.0) L Red Cell Distribution Width 16.6 % (11.6-14.8) H Platelet Count 399 K/UL (150-450) Mean Platelet Volume 7.6 FL (6.5-10.1) Neutrophils (%) (Auto) % (45.0-75.0) Lymphocytes (%) (Auto) % (20.0-45.0) Monocytes (%) (Auto) % (1.0-10.0) Eosinophils (%) (Auto) % (0.0-3.0) Basophils (%) (Auto) % (0.0-2.0) Sodium Level 158 MMOL/L (136-145) H Potassium Level 5.4 MMOL/L (3.5-5.1) H Chloride Level 112 MMOL/L (98-107) H Carbon Dioxide Level 36 MMOL/L (21-32) H Anion Gap 11 mmol/L (5-15) Blood Urea Nitrogen 150 mg/dL (7-18) H Creatinine 2.8 MG/DL (0.55-1.30) H Estimat Glomerular Filtration Rate mL/min (>60) Glucose Level 528 MG/DL (74-106) *H Lactic Acid Level 3.80 mmol/L (0.4-2.0) H 7.50 mmol/L (0.66-2.22) H Calcium Level 10.0 MG/DL (8.5-10.1) Total Bilirubin 0.2 MG/DL (0.2-1.0) Aspartate Amino Transf (AST/SGOT) 15 U/L (15-37) Alanine Aminotransferase (ALT/SGPT) 23 U/L (12-78) Alkaline Phosphatase 134 U/L (46-116) H Total Creatine Kinase 141 U/L (26-308) Creatine Kinase MB < 0.5 NG/ML (0.0-3.6) Creatine Kinase MB Relative Index 0.3 Total Protein 9.5 G/DL (6.4-8.2) H Albumin 2.4 G/DL (3.4-5.0) L Globulin 7.1 g/dL Albumin/Globulin Ratio 0.3 (1.0-2.7) L Urine Color Pale yellow Urine Appearance Cloudy Urine pH 6 (4.5-8.0) Urine Specific [place] 1.015 (1.005-1.035) Urine Protein 3+ (NEGATIVE) H Urine Glucose (UA) 2+ (NEGATIVE) H Urine Ketones Negative (NEGATIVE) Urine Blood 5+ (NEGATIVE) H Urine Nitrite Negative (NEGATIVE) Urine Bilirubin Negative (NEGATIVE) Urine Urobilinogen Normal MG/DL (0.0-1.0) Urine Leukocyte Esterase 3+ (NEGATIVE) H Urine RBC Tntc /HPF (0 - 2) H Urine WBC Tntc /HPF (0 - 2) H Urine Squamous Epithelial Cells Few /LPF (NONE/OCC) Urine Bacteria Many /HPF (NONE) H Test 12/20/18 03:54 12/20/18 07:00 12/20/18 08:00 12/20/18 13:15 Arterial Blood pH 7.316 (7.350-7.450) Arterial Blood Partial Pressure CO2 46.1 mmHg (35.0-45.0) H Arterial Blood Partial Pressure O2 73.0 mmHg (75.0-100.0) L Arterial Blood HCO3 23.0 mmol/L (22.0-26.0) Arterial Blood Oxygen Saturation 92.0 % (95-100) L Arterial Blood Base Excess -3.1 (-2-2) L Brock Test Positive Sodium Level 161 MMOL/L (136-145) *H Potassium Level 3.5 MMOL/L (3.5-5.1) Chloride Level 126 MMOL/L (98-107) H Carbon Dioxide Level 27 MMOL/L (21-32) Anion Gap 9 mmol/L (5-15) Blood Urea Nitrogen 121 mg/dL (7-18) H Creatinine 2.1 MG/DL (0.55-1.30) H Estimat Glomerular Filtration Rate mL/min (>60) Glucose Level 386 MG/DL (74-106) #H Lactic Acid Level 2.40 mmol/L (0.4-2.0) H 3.80 mmol/L (0.4-2.0) H Uric Acid 8.3 MG/DL (2.6-7.2) H Calcium Level 7.9 MG/DL (8.5-10.1) #L Phosphorus Level 3.3 MG/DL (2.5-4.9) Magnesium Level 1.7 MG/DL (1.8-2.4) L Iron Level 17 ug/dL (50-175) L Total Iron Binding Capacity 144 ug/dL (250-450) L Percent Iron Saturation 12 % (15-50) L Unsaturated Iron Binding 127 ug/dL (112-346) Ferritin 367 NG/ML (8-388) Total Bilirubin 0.2 MG/DL (0.2-1.0) Gamma Glutamyl Transpeptidase 80 U/L (5-85) Aspartate Amino Transf (AST/SGOT) 18 U/L (15-37) Alanine Aminotransferase (ALT/SGPT) 19 U/L (12-78) Alkaline Phosphatase 89 U/L (46-116) Ammonia 32 umol/L (11-32) Total Creatine Kinase 125 U/L (26-308) Troponin I 0.135 ng/mL (0.000-0.056) C-Reactive Protein, Quantitative 21.5 mg/dL (0.00-0.90) H Pro-B-Type Natriuretic Peptide 861 pg/mL (0-125) H Total Protein 7.2 G/DL (6.4-8.2) Albumin 1.4 G/DL (3.4-5.0) L Globulin 5.8 g/dL Albumin/Globulin Ratio 0.2 (1.0-2.7) L Triglycerides Level 121 MG/DL (30-150) Cholesterol Level 95 MG/DL (< 200) LDL Cholesterol 48 mg/dL (<100) HDL Cholesterol 38 MG/DL (40-60) L Cholesterol/HDL Ratio 2.5 (3.3-4.4) L Vitamin B12 Level 653 PG/ML (193-986) Folate 79.6 NG/ML (8.6-58.9) H Thyroid Stimulating Hormone (TSH) 1.246 uiU/mL (0.358-3.740) White Blood Count 14.5 K/UL (4.8-10.8) H Red Blood Count 3.05 M/UL (4.20-5.40) L Hemoglobin 8.2 G/DL (12.0-16.0) L Hematocrit 26.8 % (37.0-47.0) L Mean Corpuscular Volume 88 FL (80-99) Mean Corpuscular Hemoglobin 27.0 PG (27.0-31.0) Mean Corpuscular Hemoglobin Concent 30.7 G/DL (32.0-36.0) L Red Cell Distribution Width 16.4 % (11.6-14.8) H Platelet Count 262 K/UL (150-450) Mean Platelet Volume 7.2 FL (6.5-10.1) Neutrophils (%) (Auto) 82.6 % (45.0-75.0) H Lymphocytes (%) (Auto) 15.0 % (20.0-45.0) L Monocytes (%) (Auto) 1.8 % (1.0-10.0) Eosinophils (%) (Auto) 0.5 % (0.0-3.0) Basophils (%) (Auto) 0.2 % (0.0-2.0) Hemoglobin A1c 9.5 % (4.3-6.0) H Cortisol AM Sample 14.7 UG/DL Microbiology Date/Time Source Procedure Growth Status 12/20/18 04:00 Rectum Received Logan Singh MD Dec 20, 2018 15:15
--- NOTE | 2018-12-20 15:50 | Consultation ---
History of Present Illness General Date patient seen: Dec 20, 2018 Chief Complaint: Altered Mental Status Present Illness HPI 83 year old female with multiple medical comorbidities who presented with respiratory insufficiency and decompensated states. Admitted to ICU For care and management. On admission noted to have multiple wounds requiring care. Abnormal labs. Decompensated condition. Surgery called to evaluate and assist with care. patient seen, chart reviewed, patient examined. Allergies: Coded Allergies: ALLOPURINOL (Verified Allergy, Unknown, 12/20/18) Medication History Scheduled Amino Acids/Protein Hydrolys (Pro-Stat Liquid), 30 ML GT THREE TIMES A DAY, ( Reported) Ascorbic Acid* (Ascorbic Acid*), 500 MG GT DAILY, (Reported) Citric Acid/Sodium Citrate (Sod Citrate-Citric Acid Soln), 30 ML PO BID, ( Reported) Folic Acid* (Folic Acid*), 1 MG GT DAILY, (Reported) Heparin Sod (Porcine) (Heparin Sodium*), 5,000 UNITS SUBQ EVERY 12 HOURS, ( Reported) Naph,Mb-Db/K Ph,Mbdb (Phos-Nak Packet), 1 EACH GT TID, (Reported) Risperidone (Risperidone), 0.25 MG GT HS, (Reported) Zinc Sulfate (Zinc Sulfate*), 220 MG GT DAILY, (Reported) [centrum liquid], 15 ML GT DAILY, (Reported) Scheduled PRN Acetaminophen* (Acetaminophen 325MG Tablet*), 325 MG GT Q4H PRN for Mild Pain/ Temp > 100.5, (Reported) Hydralazine Hcl* (Hydralazine Hcl*), 10 MG ORAL Q4HR PRN for For High Blood Pressure, (Reported) Ondansetron* (Zofran*), 4 MG GT Q6H PRN for Nausea & Vomiting, (Reported) Patient History Limited by: medical condition History Provided By: Medical Record, PMD Healthcare decision maker Resuscitation status Full Code Advanced Directive on File No Past Medical/Surgical History Past Medical/Surgical History: (1) Sepsis (2) Severe dehydration (3) Anemia, chronic disease (4) HCAP (healthcare-associated pneumonia) (5) Sacral decubitus ulcer, stage IV (6) Hyperglycemia due to type 2 diabetes mellitus (7) Acute metabolic encephalopathy (8) Hypotension (9) Respiratory failure with hypoxia (10) ARF (acute renal failure) Review of Systems ROS Narrative cannot obtain given medical condition Physical Exam General Appearance: no apparent distress Lines, tubes and drains: peripheral HEENT: mucous membranes moist Neck: normal inspection Respiratory/Chest: no respiratory distress, no accessory muscle use, decreased breath sounds Abdomen: soft, no organomegaly, no mass, other Extremities: normal inspection, non-pitting Skin Exam: warm/dry Neurologic: alert Last 24 Hour Vital Signs Date Time Temp Pulse Resp B/P (MAP) Pulse Ox O2 Delivery O2 Flow Rate FiO2 12/20/18 13:24 107 26 100 12/20/18 13:00 107/68 12/20/18 12:00 Mechanical Ventilator 12/20/18 12:00 110/59 12/20/18 12:00 100 12/20/18 12:00 109 12/20/18 11:00 112/58 12/20/18 10:34 107 15 100 12/20/18 10:00 111/56 12/20/18 09:00 109/66 12/20/18 08:30 97 15 100 12/20/18 08:00 97 12/20/18 08:00 Mechanical Ventilator 12/20/18 08:00 149/63 12/20/18 07:30 83/54 12/20/18 06:48 95 25 100 12/20/18 06:06 100 12/20/18 05:51 Mechanical Ventilator 12/20/18 05:41 98.5 98 18 98/60 100 Mechanical Ventilator 15.0 100 12/20/18 05:20 110 18 100 12/20/18 04:53 98 18 98/82 100 Mechanical Ventilator 100 12/20/18 03:31 88 18 102/50 98 100 12/20/18 03:11 98.5 12/20/18 02:52 117 28 100 12/20/18 02:21 101.2 142 22 94/44 90 Bi-pap 12/20/18 02:21 142 22 Non-Rebreather 15.0 12/20/18 02:15 144 44 98 Bi-Pap 100 12/20/18 02:15 144 44 98 Full Face 100 12/20/18 02:11 99.9 116 22 94/44 (61) 94 Non-Rebreather 15.0 Intake and Output 12/19/18 12/20/18 19:00 07:00 Output Total 600 ml Balance -600 ml Output Urine Total 600 ml Laboratory Tests Test 12/20/18 02:10 12/20/18 02:30 12/20/18 03:35 12/20/18 03:54 White Blood Count 19.9 K/UL (4.8-10.8) H Red Blood Count 4.28 M/UL (4.20-5.40) Hemoglobin 11.4 G/DL (12.0-16.0) L Hematocrit 37.1 % (37.0-47.0) Mean Corpuscular Volume 87 FL (80-99) Mean Corpuscular Hemoglobin 26.7 PG (27.0-31.0) L Mean Corpuscular Hemoglobin Concent 30.8 G/DL (32.0-36.0) L Red Cell Distribution Width 16.6 % (11.6-14.8) H Platelet Count 399 K/UL (150-450) Mean Platelet Volume 7.6 FL (6.5-10.1) Neutrophils (%) (Auto) % (45.0-75.0) Lymphocytes (%) (Auto) % (20.0-45.0) Monocytes (%) (Auto) % (1.0-10.0) Eosinophils (%) (Auto) % (0.0-3.0) Basophils (%) (Auto) % (0.0-2.0) Sodium Level 158 MMOL/L (136-145) H Potassium Level 5.4 MMOL/L (3.5-5.1) H Chloride Level 112 MMOL/L (98-107) H Carbon Dioxide Level 36 MMOL/L (21-32) H Anion Gap 11 mmol/L (5-15) Blood Urea Nitrogen 150 mg/dL (7-18) H Creatinine 2.8 MG/DL (0.55-1.30) H Estimat Glomerular Filtration Rate mL/min (>60) Glucose Level 528 MG/DL (74-106) *H Lactic Acid Level 3.80 mmol/L (0.4-2.0) H 7.50 mmol/L (0.66-2.22) H Calcium Level 10.0 MG/DL (8.5-10.1) Total Bilirubin 0.2 MG/DL (0.2-1.0) Aspartate Amino Transf (AST/SGOT) 15 U/L (15-37) Alanine Aminotransferase (ALT/SGPT) 23 U/L (12-78) Alkaline Phosphatase 134 U/L (46-116) H Total Creatine Kinase 141 U/L (26-308) Creatine Kinase MB < 0.5 NG/ML (0.0-3.6) Creatine Kinase MB Relative Index 0.3 Troponin I 0.000 ng/mL (0.000-0.056) Total Protein 9.5 G/DL (6.4-8.2) H Albumin 2.4 G/DL (3.4-5.0) L Globulin 7.1 g/dL Albumin/Globulin Ratio 0.3 (1.0-2.7) L Urine Color Pale yellow Urine Appearance Cloudy Urine pH 6 (4.5-8.0) Urine Specific [place] 1.015 (1.005-1.035) Urine Protein 3+ (NEGATIVE) H Urine Glucose (UA) 2+ (NEGATIVE) H Urine Ketones Negative (NEGATIVE) Urine Blood 5+ (NEGATIVE) H Urine Nitrite Negative (NEGATIVE) Urine Bilirubin Negative (NEGATIVE) Urine Urobilinogen Normal MG/DL (0.0-1.0) Urine Leukocyte Esterase 3+ (NEGATIVE) H Urine RBC Tntc /HPF (0 - 2) H Urine WBC Tntc /HPF (0 - 2) H Urine Squamous Epithelial Cells Few /LPF (NONE/OCC) Urine Bacteria Many /HPF (NONE) H Arterial Blood pH 7.316 (7.350-7.450) Arterial Blood Partial Pressure CO2 46.1 mmHg (35.0-45.0) H Arterial Blood Partial Pressure O2 73.0 mmHg (75.0-100.0) L Arterial Blood HCO3 23.0 mmol/L (22.0-26.0) Arterial Blood Oxygen Saturation 92.0 % (95-100) L Arterial Blood Base Excess -3.1 (-2-2) L Brock Test Positive Test 12/20/18 07:00 12/20/18 08:00 12/20/18 13:05 12/20/18 13:15 Sodium Level 161 MMOL/L (136-145) *H Potassium Level 3.5 MMOL/L (3.5-5.1) Chloride Level 126 MMOL/L (98-107) H Carbon Dioxide Level 27 MMOL/L (21-32) Anion Gap 9 mmol/L (5-15) Blood Urea Nitrogen 121 mg/dL (7-18) H Creatinine 2.1 MG/DL (0.55-1.30) H Estimat Glomerular Filtration Rate mL/min (>60) Glucose Level 386 MG/DL (74-106) #H Lactic Acid Level 2.40 mmol/L (0.4-2.0) H 3.80 mmol/L (0.4-2.0) H Uric Acid 8.3 MG/DL (2.6-7.2) H Calcium Level 7.9 MG/DL (8.5-10.1) #L Phosphorus Level 3.3 MG/DL (2.5-4.9) Magnesium Level 1.7 MG/DL (1.8-2.4) L Iron Level 17 ug/dL (50-175) L Total Iron Binding Capacity 144 ug/dL (250-450) L Percent Iron Saturation 12 % (15-50) L Unsaturated Iron Binding 127 ug/dL (112-346) Ferritin 367 NG/ML (8-388) Total Bilirubin 0.2 MG/DL (0.2-1.0) Gamma Glutamyl Transpeptidase 80 U/L (5-85) Aspartate Amino Transf (AST/SGOT) 18 U/L (15-37) Alanine Aminotransferase (ALT/SGPT) 19 U/L (12-78) Alkaline Phosphatase 89 U/L (46-116) Ammonia 32 umol/L (11-32) Total Creatine Kinase 125 U/L (26-308) Troponin I 0.135 ng/mL (0.000-0.056) 0.175 ng/mL (0.000-0.056) C-Reactive Protein, Quantitative 21.5 mg/dL (0.00-0.90) H Pro-B-Type Natriuretic Peptide 861 pg/mL (0-125) H Total Protein 7.2 G/DL (6.4-8.2) Albumin 1.4 G/DL (3.4-5.0) L Globulin 5.8 g/dL Albumin/Globulin Ratio 0.2 (1.0-2.7) L Triglycerides Level 121 MG/DL (30-150) Cholesterol Level 95 MG/DL (< 200) LDL Cholesterol 48 mg/dL (<100) HDL Cholesterol 38 MG/DL (40-60) L Cholesterol/HDL Ratio 2.5 (3.3-4.4) L Vitamin B12 Level 653 PG/ML (193-986) Folate 79.6 NG/ML (8.6-58.9) H Thyroid Stimulating Hormone (TSH) 1.246 uiU/mL (0.358-3.740) White Blood Count 14.5 K/UL (4.8-10.8) H Red Blood Count 3.05 M/UL (4.20-5.40) L Hemoglobin 8.2 G/DL (12.0-16.0) L Hematocrit 26.8 % (37.0-47.0) L Mean Corpuscular Volume 88 FL (80-99) Mean Corpuscular Hemoglobin 27.0 PG (27.0-31.0) Mean Corpuscular Hemoglobin Concent 30.7 G/DL (32.0-36.0) L Red Cell Distribution Width 16.4 % (11.6-14.8) H Platelet Count 262 K/UL (150-450) Mean Platelet Volume 7.2 FL (6.5-10.1) Neutrophils (%) (Auto) 82.6 % (45.0-75.0) H Lymphocytes (%) (Auto) 15.0 % (20.0-45.0) L Monocytes (%) (Auto) 1.8 % (1.0-10.0) Eosinophils (%) (Auto) 0.5 % (0.0-3.0) Basophils (%) (Auto) 0.2 % (0.0-2.0) Hemoglobin A1c 9.5 % (4.3-6.0) H Cortisol AM Sample 14.7 UG/DL Microbiology Date/Time Source Procedure Growth Status 12/20/18 04:00 Rectum Received Height (Feet): 5 Height (Inches): 6.00 Weight (Pounds): 170 Medications Current Medications Medications (Trade) Dose Ordered Sig/Nora Route PRN Reason Start Time Stop Time Status Last Admin Dose Admin Acetaminophen (Tylenol) 650 mg Q4H PRN ORAL Mild Pain/Temp > 100.5 12/20/18 06:30 01/19/19 06:29 12/20/18 14:30 Dextrose (Dextrose 50%) 25 ml Q30M PRN IV Hypoglycemia 12/20/18 09:45 01/19/19 09:44 Dextrose (Dextrose 50%) 50 ml Q30M PRN IV Hypoglycemia 12/20/18 09:45 01/19/19 09:44 Insulin Aspart (NovoLOG) Q6HR SUBQ 12/20/18 12:00 01/19/19 11:59 12/20/18 11:47 Lansoprazole (Prevacid) 30 mg BID GT 12/20/18 18:00 01/20/19 08:59 Norepinephrine Bitartrate 4 mg/ Dextrose 250 ml @ 0 mls/hr Q24H IV 12/20/18 07:00 01/19/19 06:59 12/20/18 07:30 Piperacillin Sod/ Tazobactam Sod 3.375 gm/Sodium Chloride 110 ml @ 27.5 mls/hr Q8HR IVPB 12/20/18 12:00 12/27/18 11:59 12/20/18 12:00 Sodium Chloride 1,000 ml @ 150 mls/hr Q6H40M IV 12/20/18 07:00 01/19/19 06:59 12/20/18 13:40 Vancomycin HCl (Vanco rx to dose) 1 ea DAILY PRN MISC Per rx protocol 12/20/18 11:00 01/19/19 10:59 Assessment/Plan Problem List: (1) Sepsis Assessment & Plan: cont current ICU care and management Cont IV abx trend labs ICD Codes: A41.9 - Sepsis, unspecified organism SNOMED: 19459142, 571032204 Qualifiers: Qualified Codes: A41.9 - Sepsis, unspecified organism (2) Severe dehydration ICD Codes: E86.0 - Dehydration SNOMED: 183908909, 999748897 (3) Anemia, chronic disease ICD Codes: D63.8 - Anemia in other chronic diseases classified elsewhere SNOMED: 464161508, 891195668 (4) HCAP (healthcare-associated pneumonia) ICD Codes: J18.9 - Pneumonia, unspecified organism SNOMED: 919014338, 564031997 (5) Sacral decubitus ulcer, stage IV Assessment & Plan: Pt presented on admission with full thickness Sacral Pressure Injury with undermining. Bone is palpable. Base of has beefy red granulation with scattered small purple areas. No odor noted .Scant serous exudate noted . Edges pink and flat. (L)13cm x (W)14cm x (D)5.6cm,[id number] 4 by 4cm @11o'clock. DTPI noted to lateral R foot. .Base of wound purple and fluctuant in center with surrounding maroon discoloration (L)1.5cm x (W)1cm. Non-blanchable erythema with fluctuance noted to posterior and medial R heel. L heel boggy but blanchable. Tx.Plan: Cleanse Sacral wound with Saline. Loosely pack with Hydrogel Impregnated Kerlix. Cover with ABD pads and secure with Paper Tape or Tegaderm Daily and prn. Apply Cavilon Skin Barrier to R and Heel and lateral R heel. Ciover with Optifoam drsg. Change every 7 days and PRN. Apply Cavilon Skin Barrier to L heel. Cover with Optifoam drsg. Change every 7 days and prn. APM/VIJI Mattress Overlay. Reposition at least every 2hours or as tolerated. Off-load heels with Pillow. ICD Codes: L89.154 - Pressure ulcer of sacral region, stage 4 SNOMED: 274785463, 910459961 (6) Hyperglycemia due to type 2 diabetes mellitus ICD Codes: E11.65 - Type 2 diabetes mellitus with hyperglycemia SNOMED: 881614559110460, 63341430 Qualifiers: Qualified Codes: E11.65 - Type 2 diabetes mellitus with hyperglycemia; Z79.4 - ferry terminal agent (current) use of insulin (7) Acute metabolic encephalopathy ICD Codes: G93.41 - Metabolic encephalopathy SNOMED: 06521665, 634038047 (8) Hypotension ICD Codes: I95.9 - Hypotension, unspecified SNOMED: 50751364 (9) ARF (acute renal failure) ICD Codes: N17.9 - Acute kidney failure, unspecified SNOMED: 90549549, 766389298 Qualifiers: Qualified Codes: N17.9 - Acute kidney failure, unspecified (10) Respiratory failure with hypoxia ICD Codes: J96.91 - Respiratory failure, unspecified with hypoxia SNOMED: 57460076375774518, 954559980 Qualifiers: Qualified Codes: J96.01 - Acute respiratory failure with hypoxia Mauro Morrow Dec 20, 2018 15:50
--- NOTE | 2018-12-20 16:45 | Consultation ---
DATE OF CONSULTATION: 12/20/2018 INFECTIOUS DISEASE CONSULT CONSULTING PHYSICIAN: Roland Navarro M.D. PRIMARY ATTENDING: Danial Walden M.D. REASON FOR CONSULT: Septic shock, pneumonia, multiorgan failure, UTI. HISTORY OF PRESENT ILLNESS: This is an 83-year-old female, who is a skilled nursing resident admitted today. She developed altered mental status and fever in skilled nursing, was unresponsive, was hypoxemic, tachycardic, hypertensive, the temperature up to 101.2 in hospital. She was intubated, right IJ catheter was placed for the patient, started on IV fluid and 1 Lopressor and transferred to ICU. Had leukocytosis, lactic acidosis, and hypernatremia as well. PAST MEDICAL HISTORY: Significant for small bowel obstruction. The patient had colostomy, psychosis, had G-tube placement, had anemia. ALLERGIES: Allergic to allopurinol. MEDICATIONS: Getting insulin, norepinephrine 6 mcg/mL per minute. Got a dose of cefepime and Levaquin in the ER. She got 5 L of sodium chloride in the ER. SOCIAL HISTORY: . halfway resident. No other history obtainable by the patient. PHYSICAL EXAMINATION: VITAL SIGNS: T-max 101.2, current temperature 98.5, pulse 97, respirations 15, blood pressure 83/54. HEAD AND NECK: Orally intubated. Has right internal jugular central line. LUNGS: Clear on mechanical ventilator. HEART: Normal rate. ABDOMEN: Soft. Has a colostomy and G-tube placement. Liquid stool in colostomy bag. EXTREMITIES: No edema. LABORATORY AND DIAGNOSTIC DATA: WBC 14.5 coming down from 19.9 from the time of admission, hemoglobin 8.2, hematocrit 26.8, platelets 262. Sodium 161, potassium 3.5, chloride 126, BUN 121, creatinine 2.1, glucose 386. Troponin is modestly elevated at 0.135. BNP 861. Albumin is 1.4. Hemoglobin A1c is 9.5. Blood gas showed pO2 of 73, pCO2 of 46.1, O2 saturation of 92. UA showed 2 wbc's, too numerous to count, rbc's too numerous to count, leukocyte esterase 2+. Chest x-ray showed right upper lobe atelectasis, new or increased left pleural effusion. IMPRESSION: 1. Severe sepsis with septic shock. 2. UTI. 3. Atelectasis and pneumonia. 4. Acute hypoxemic respiratory failure. 5. Acute renal failure and lactic acidosis. 6. Diabetes mellitus with hyperglycemia. 7. Metabolic encephalopathy. 8. Stage IV sacral decubitus ulcer. 9. Anemia. 10. Hypernatremia. RECOMMENDATION: We will start the patient on vancomycin and Zosyn. We will follow up blood cultures, sputum culture, and urine culture. At the end of my exam, I thank Dr. Walden for involving me in the care of this patient. Roland Navarro M.D. DR: CHUY JOB#: [id number] CC: JEN
--- NOTE | 2018-12-20 18:15 | Consultation ---
DATE OF CONSULTATION: 12/20/2018 CHIEF COMPLAINT: Altered mental status, dysphagia, colostomy bag. HISTORY OF PRESENT ILLNESS: Unfortunately I cannot get any history from this patient. She is intubated in ICU. No prior admission to [facility]. All the history is per the ER note. The patient is an 83-year-old detention patient, was admitted with altered mental status, had respiratory compromise requiring intubation. The patient was transferred to ICU, the patient is septic, possibly from urine. She also has history of colostomy and G-tube in place. PAST MEDICAL HISTORY: Unknown. ALLERGIES: Unknown. FAMILY HISTORY: Noncontributory. SOCIAL HISTORY: Currently lives in a detention. No history of tobacco, alcohol, or drug abuse. REVIEW OF SYSTEMS: Unable to obtain. PHYSICAL EXAMINATION: VITAL SIGNS: Temperature is 98.5, pulse 95, respirations 25, blood pressure is 83/54. HEENT: Normocephalic and atraumatic. Mild pale conjunctiva. NECK: Supple. No evidence of obvious lymphadenopathy. CARDIOVASCULAR: Tachycardic. Regular rate. Plus S1 and S2. LUNGS: Decreased breath sounds bilaterally on supine exam. ABDOMEN: Soft. Mildly distended. Bowel sounds are present but hypoactive. G-tube in place. Colostomy bag in place. EXTREMITIES: No cyanosis, no clubbing, no edema. LABORATORY DATA: White count is 14.5, hemoglobin 8.2, hematocrit 26, platelet count is 262. Chem-7 sodium 161 potassium 3.5, BUN is 121, creatinine is 2.1, glucose is 386. Ammonia level is 32. Liver function grossly normal. Albumin is very low at 1.4. ASSESSMENT AND PLAN: The patient is an 83-year-old patient admitted to the hospital with respiratory failure, septic possibly from urine source, G-tube in place, colostomy in place. The patient had also acute renal failure. Since the patient had diabetes and blood sugars in the high 386, she also has hypernatremia with sodium 161, lactic acid is elevated, troponins elevated. From gastrointestinal standpoint, plan will be to do anemia workup. Transfuse to keep hemoglobin above 8. Send the stool for OB. Hold off GI procedure if patient is unstable unless it becomes medical emergency. Hold G-tube feeding for today until the patient's sepsis is more under control and blood pressure is better. We will follow up on her on daily basis and make further recommendation as needed. I want to thank Dr. Danial Walden for this kind referral referral. Horacio Vora M.D. DR: Liliam JOB#: [id number] CC: Danial Walden M.D.; Fax#: [phone]
--- NOTE | 2018-12-20 22:00 | Consultation ---
DATE OF CONSULTATION: 12/20/2018 CARDIOLOGY CONSULTATION CONSULTING PHYSICIAN: Logan Singh M.D. REFERRING PHYSICIAN: Danial Walden M.D. REASON FOR CONSULTATION: Hypotension and troponin elevation. HISTORY OF PRESENT ILLNESS: The patient is an 83-year-old lady from custodial with history of colostomy bag as well as dysphagia status post post PEG placement, was brought to the hospital for altered mental status and fever. The patient has been having fever off and on . However, the patient became unresponsive with severe hypoxia. In the ER, the patient was unresponsive and hypoxic with a saturation of 72% on room air. At this time, the patient was apparently able to talk. The patient was intubated and brought to intensive care unit. The patient was noted to be severely dehydrated and received 2.5 liters of IV fluids. At my request, the patient was started on Levophed. The patient was still hypotensive with blood pressure in the 70s. PAST MEDICAL HISTORY: As mentioned above. MEDICATIONS: Per reconciliation. FAMILY HISTORY: Noncontributory. SOCIAL HISTORY: She is a custodial resident. Does not smoke or drink alcohol. REVIEW OF SYSTEMS: Cannot be obtained. PHYSICAL EXAMINATION: VITAL SIGNS: Blood pressure is 107/68, on Levophed, pulse is 107, and respirations 18. HEAD AND NECK: Shows no JVD. LUNGS: Coarse rhonchi. She is orally intubated. CARDIOVASCULAR: Shows mildly tachycardic, S1, S2 with no gallop or murmur. ABDOMEN: Soft and nontender. EXTREMITIES: No pitting edema. She has a G-tube and a colostomy bag. LABORATORY DATA: Labs show white count of 14.5, hemoglobin 8.2, hematocrit 26.8, and platelet count of 262,000. Sodium 161, potassium 3.5, BUN of 121, creatinine 2.1 and glucose of 386. Troponin 0.135. Initially was negative. Initial glucose was 528 and lactic acid was 7.5. ASSESSMENT AND PLAN: 1. Hypotension due to combination of septic shock in view of high lactic acid of 7.5 as well as severe dehydration. The patient has received 5 liters of normal saline. The patient continues on Levophed. Echocardiogram was performed that showed ejection fraction of 50 to 55 percent. Continue intravenous fluids 125 mL an hour under the management of Dr. Cifuentes. 2. Troponin leak due to renal failure. EKG does not show any acute ST-T wave abnormality and shows sinus tachycardia of 102 with only left atrial enlargement. 3. Respiratory failure. On the ventilator. On IV antibiotics. 4. Dysphagia, status post PEG placement. 5. Status post colostomy bag. 6. Severe dehydration with renal failure and hypernatremia. On IV fluids per Dr. Cifuentes. 7. Stage IV decubitus ulcer. The patient has hyperglycemia. 8. Anemia of chronic disease. Thank you very much, Dr. Danial Walden, for allowing me to participate in the care of this critically ill lady. Please do not hesitate to contact me for any questions regarding my evaluation. The critical care time in the patient was 55 minutes. Logan Singh M.D. DR: JASWINDER JOB#: [id number] CC:
[2018-12-20] MEDS ORDERED: Succinylcholine 20mg/ml 10ml vial ONE (22:30)
[2018-12-20] MEDS ORDERED: Etomidate 40mg/20ml Inj IV ONE (22:30)
[2018-12-21] VITALS (42 sets, daily range): BP systolic 91–126; BP diastolic 29–86
[2018-12-21] MEDS: Piperacillin/Tazobactam 3.375 GM in NS 110 ML IVPB SCH (05:28)
[2018-12-21] MEDS: NovoLOG Insulin Flexpen SUBQ SCH ×3 (05:30→18:38)
--- NOTE | 2018-12-21 06:00 | Consultation ---
DATE OF CONSULTATION: 12/20/2018 NEPHROLOGY CONSULTATION CONSULTING PHYSICIAN: Pablo Day M.D. REFERRING PHYSICIAN: Danial Walden M.D. REASON FOR CONSULTATION: Management of diabetes. HISTORY OF PRESENT ILLNESS: It is important to know that history is obtained from review of the chart and medical records. The patient is intubated in the ICU, not able to provide any meaningful history. The patient is an 83-year-old halfway patient with a colostomy bag. The patient has altered mental status and fever. On the day of presentation, the patient had glucose over 400, lactic acid positive, became hypoxic, hypotensive, and had been intubated and admitted to ICU and started on pressors and antibiotic. I was called to manage diabetes. PAST MEDICAL HISTORY: 1. Colostomy. 2. G-tube. MEDICATIONS: Reviewed and reconciled. ALLERGIES TO MEDICATION: Unknown. FAMILY HISTORY: Noncontributory. SOCIAL HISTORY: Lives in a halfway. No smoking, alcohol, or drug use. REVIEW OF SYSTEMS: Unobtainable. PHYSICAL EXAMINATION: GENERAL: The patient is in severe distress. VITAL SIGNS: Blood pressure is 80/50, pulse of 80, pulse oximetry of 100%, temperature of 98, and respiratory rate of 18. HEENT: Orally intubated. NECK: No JVD. HEART: Tachy. LUNGS: Decreased breath sounds. ABDOMEN: Colostomy in bed. EXTREMITIES: Positive for edema. LABORATORY VALUES: Sodium 161, potassium 3.5, chloride 126, bicarb 27, BUN 121, creatinine 2.1, and glucose of 386. TSH of 1.2. DIAGNOSES: 1. Septic shock. 2. Respiratory failure. 3. Diabetes out of control. PLAN: 1. I will start Levemir 14 units b.i.d. 2. NovoLog sliding scale every 6 hours. 3. Continue IV fluids. 4. Continue excellent ICU care. 5. Further adjustment according to blood glucose values. 6. We will follow up closely during the hospital stay. Thank you, Dr. Walden, for the courtesy of this consultation. Pablo Day M.D. DR: HELEN/UNA JOB#: [id number] CC: JEN
--- NOTE | 2018-12-21 06:31 | History and Physical Report ---
DATE OF ADMISSION: 12/20/2018 NOTE: POOR AUDIO HISTORY OF PRESENT ILLNESS: The patient is admitted to the intensive care unit. I saw the patient before noon today, and the patient was in the intensive care unit intubated. The patient , leukocytosis, hypernatremia, acute renal failure, dehydration, prerenal and highly elevated glucose, 7.5. The patient has sepsis, respiratory failure, pneumonia, acute renal failure, dehydration, cannot get any history at this point. We will try to get some history from the family. PAST MEDICAL HISTORY: Chronic renal insufficiency, , and history of decubitus ulcer. PAST SURGICAL HISTORY: Unable to obtain. SOCIAL HISTORY: Unable to obtain. REVIEW OF SYSTEMS: Unable to obtain. PHYSICAL EXAMINATION: . VITAL SIGNS: Temperature 97, pulse 78, respirations 18, and blood pressure . HEENT: Pupils are equally reactive. CHEST: Bibasilar rales. CARDIOVASCULAR: Regular rate and rhythm. ABDOMEN: Soft. Positive bowel sounds. SKIN: The patient has sacral decubitus. For skin integrity, refer to the nursing notes. NEUROLOGIC: The patient also grimaces to noxious stimuli. . LABORATORY DATA: WBC of 19.9, sodium 150, BUN of 150, creatinine 3.8, and glucose of 520. Lactate 7.5. Chest x-ray . ASSESSMENT AND PLAN: Respiratory failure, sepsis, pneumonia, acute renal failure, dehydration, hyperglycemia, nonketotic . I have asked Dr. Vora, Dr. Day, Dr. Flanagan, Dr. Cifuentes, Dr. Roland Navarro Dr. to see the patient for the above-mentioned diagnoses and treatment. Danial Walden M.D. DR: MARCUS JOB#: [id number] CC:
[2018-12-21 06:48] LABS: HEMOGLOBIN 9.3 G/DL (12.0-16.0); MEAN CORPUSCULAR VOLUME 86 FL (80-99); PLATELET COUNT 210 K/UL (150-450); RED BLOOD COUNT 3.38 M/UL (4.20-5.40); RED CELL DISTRIBUTION WIDTH 15.1 % (11.6-14.8)
--- NOTE | 2018-12-21 06:52 | General Progress Note ---
Assessment/Plan Problem List: (1) Sepsis ICD Codes: A41.9 - Sepsis, unspecified organism SNOMED: 39894967, 239670535 Qualifiers: Qualified Codes: A41.9 - Sepsis, unspecified organism (2) HCAP (healthcare-associated pneumonia) ICD Codes: J18.9 - Pneumonia, unspecified organism SNOMED: 068518232, 542508074 (3) Sacral decubitus ulcer, stage IV ICD Codes: L89.154 - Pressure ulcer of sacral region, stage 4 SNOMED: 196096309, 176341709 (4) Hyperglycemia due to type 2 diabetes mellitus ICD Codes: E11.65 - Type 2 diabetes mellitus with hyperglycemia SNOMED: 302746584896898, 52457203 Qualifiers: Qualified Codes: E11.65 - Type 2 diabetes mellitus with hyperglycemia; Z79.4 - halfway (current) use of insulin (5) Acute metabolic encephalopathy ICD Codes: G93.41 - Metabolic encephalopathy SNOMED: 87328744, 522435379 (6) ARF (acute renal failure) ICD Codes: N17.9 - Acute kidney failure, unspecified SNOMED: 81492577, 037898140 Qualifiers: Qualified Codes: N17.9 - Acute kidney failure, unspecified (7) Respiratory failure with hypoxia ICD Codes: J96.91 - Respiratory failure, unspecified with hypoxia SNOMED: 61798610750210458, 794569731 Qualifiers: Qualified Codes: J96.01 - Acute respiratory failure with hypoxia Assessment/Plan: continue Levemir 15 units bid continue NISS every 6 hours Subjective ROS Limited/Unobtainable: Yes Allergies: Coded Allergies: ALLOPURINOL (Verified Allergy, Unknown, 12/20/18) Subjective intubated in ICU off pressors Item Value Date Time Bedside Blood Glucose 139 mg/dl H 12/21/18 0530 Bedside Blood Glucose 179 mg/dl H 12/20/18 2350 Bedside Blood Glucose 271 mg/dl H 12/20/18 1800 Bedside Blood Glucose 326 mg/dl H 12/20/18 1200 Bedside Blood Glucose 490 mg/dl H 12/20/18 0401 Objective Last 24 Hour Vital Signs Date Time Temp Pulse Resp B/P (MAP) Pulse Ox O2 Delivery O2 Flow Rate FiO2 12/21/18 06:30 76 19 101/42 100 Mechanical Ventilator 60 12/21/18 06:00 70 18 105/44 100 Mechanical Ventilator 60 6/20/19 05:30 76 18 108/50 100 Mechanical Ventilator 60 6/20/19 05:05 70 20 75 6/20/19 05:00 75 19 113/48 100 Mechanical Ventilator 60 6/20/19 04:00 99.6 75 22 112/56 100 Mechanical Ventilator 75 6/20/19 04:00 Mechanical Ventilator 6/20/19 04:00 80 6/20/ 04:00 60 6/20/19 03:00 79 20 114/63 100 Mechanical Ventilator 75 6/20/19 02:56 77 21 75 6/20/19 02:30 85 18 116/76 100 Mechanical Ventilator 75 6/20/19 02:00 78 18 103/56 100 Mechanical Ventilator 75 6/20/19 01:30 82 20 103/54 100 Mechanical Ventilator 75 6/20/19 01:05 78 17 75 6/20/19 01:00 78 16 124/45 100 Mechanical Ventilator 75 6/20/19 00:30 81 16 99/65 100 Mechanical Ventilator 75 6/20/19 00:00 75 6/20/ 00:00 75 6/20/19 00:00 98.8 88 15 126/86 100 Mechanical Ventilator 75 6/20/19 00:00 Mechanical Ventilator 6/19/19 23:03 82 21 80 6/19/19 23:00 81 20 121/58 100 Mechanical Ventilator 75 6/19/19 22:30 82 20 115/51 100 Mechanical Ventilator 80 6/19/19 22:00 83 18 110/55 100 Mechanical Ventilator 80 6/19/19 21:30 84 21 112/55 100 Mechanical Ventilator 80 6/19/19 21:04 83 21 80 6/19/19 21:00 84 21 122/52 100 Mechanical Ventilator 80 6/19/19 20:30 74 19 104/56 100 Mechanical Ventilator 80 6/19/19 20:00 99.8 76 22 92/41 100 Mechanical Ventilator 80 6/19/19 20:00 82 6/19/19 20:00 Mechanical Ventilator 6/19/19 20:00 80 6/19/19 19:30 80 20 99/46 100 Mechanical Ventilator 100 6/19/19 19:00 82 20 101/46 100 Mechanical Ventilator 100 6/19/19 18:55 84 22 100 6/19/19 18:30 86 19 103/42 100 Mechanical Ventilator 100 6/19/19 18:25 98/41 12/20/18 18:00 93 19 111/46 100 Mechanical Ventilator 100 12/20/18 17:07 97 24 100 12/20/18 16:00 Mechanical Ventilator 12/20/18 16:00 100 12/20/18 16:00 86 12/20/18 15:00 100.9 12/20/18 14:57 95 21 100 12/20/18 13:24 107 26 100 12/20/18 13:00 107/68 12/20/18 12:00 Mechanical Ventilator 12/20/18 12:00 110/59 12/20/18 12:00 100 12/20/18 12:00 109 12/20/18 11:00 112/58 12/20/18 10:34 107 15 100 12/20/18 10:00 111/56 12/20/18 09:00 109/66 12/20/18 08:30 97 15 100 12/20/18 08:00 97 12/20/18 08:00 Mechanical Ventilator 12/20/18 08:00 149/63 12/20/18 07:30 83/54 Intake and Output 12/20/18 12/21/18 19:00 07:00 Intake Total 2243.75 ml 3330.00 ml Output Total 1570 ml 715 ml Balance 673.75 ml 2615.00 ml Intake Free Water 100 ml 350 ml IV Total 2143.75 ml 2980.00 ml Output Urine Total 1170 ml 715 ml Stool Total 400 ml # Bowel Movements 11 Laboratory Tests 12/20/18 07:00: Sodium Level 161*H, Potassium Level 3.5, Chloride Level 126H, Carbon Dioxide Level 27, Anion Gap 9, Blood Urea Nitrogen 121H, Creatinine 2.1H, Estimat Glomerular Filtration Rate , Glucose Level 386#H, Lactic Acid Level 2.40H, Uric Acid 8.3H, Calcium Level 7.9#L, Phosphorus Level 3.3, Magnesium Level 1.7L, Iron Level 17L, Total Iron Binding Capacity 144L, Percent Iron Saturation 12L, Unsaturated Iron Binding 127, Ferritin 367, Total Bilirubin 0.2, Gamma Glutamyl Transpeptidase 80, Aspartate Amino Transf (AST/SGOT) 18, Alanine Aminotransferase (ALT/SGPT) 19, Alkaline Phosphatase 89, Ammonia 32, Total Creatine Kinase 125, Troponin I 0.135H, C-Reactive Protein, Quantitative 21.5H, Pro-B-Type Natriuretic Peptide 861H, Total Protein 7.2, Albumin 1.4L, Globulin 5.8, Albumin/Globulin Ratio 0.2L, Triglycerides Level 121, Cholesterol Level 95 , LDL Cholesterol 48, HDL Cholesterol 38L, Cholesterol/HDL Ratio 2.5L, Vitamin B12 Level 653, Folate 79.6H, Thyroid Stimulating Hormone (TSH) 1.246 12/20/18 08:00: White Blood Count 14.5H, Red Blood Count 3.05L, Hemoglobin 8.2L, Hematocrit 26.8L, Mean Corpuscular Volume 88, Mean Corpuscular Hemoglobin 27.0, Mean Corpuscular Hemoglobin Concent 30.7L, Red Cell Distribution Width 16.4H, Platelet Count 262, Mean Platelet Volume 7.2, Neutrophils (%) (Auto) 82.6H, Lymphocytes (%) (Auto) 15.0L, Monocytes (%) (Auto) 1.8, Eosinophils (%) (Auto) 0.5, Basophils (%) (Auto) 0.2, Hemoglobin A1c 9.5H, Cortisol AM Sample 14.7 12/20/18 13:05: Troponin I 0.175H 12/20/18 13:15: Lactic Acid Level 3.80H 12/20/18 16:20: Lactic Acid Level 3.70H 12/20/18 20:50: Lactic Acid Level 3.20H 12/20/18 23:27: Lactic Acid Level 3.00H 12/21/18 04:00: Stool Occult Blood [Pending] 12/21/18 05:00: White Blood Count [Pending], Red Blood Count [Pending], Hemoglobin [Pending], Hematocrit [Pending], Mean Corpuscular Volume [Pending], Mean Corpuscular Hemoglobin [Pending], Mean Corpuscular Hemoglobin Concent [Pending], Red Cell Distribution Width [Pending], Platelet Count [Pending], Mean Platelet Volume [ Pending], Neutrophils (%) (Auto) [Pending], Lymphocytes (%) (Auto) [Pending], Monocytes (%) (Auto) [Pending], Eosinophils (%) (Auto) [Pending], Basophils (%) (Auto) [Pending], Sodium Level [Pending], Potassium Level [Pending], Chloride Level [Pending], Carbon Dioxide Level [Pending], Blood Urea Nitrogen [Pending], Creatinine [Pending], Estimat Glomerular Filtration Rate [Pending], Glucose Level [Pending], Uric Acid [Pending], Calcium Level [Pending], Phosphorus Level [Pending], Magnesium Level [Pending], Total Bilirubin [Pending], Aspartate Amino Transf (AST/SGOT) [Pending], Alanine Aminotransferase (ALT/SGPT) [Pending] , Alkaline Phosphatase [Pending], Troponin I [Pending], C-Reactive Protein, Quantitative [Pending], Pro-B-Type Natriuretic Peptide [Pending], Total Protein [Pending], Albumin [Pending], Globulin [Pending], Random Vancomycin Level [ Pending] Height (Feet): 5 Height (Inches): 6.00 Weight (Pounds): 169 General Appearance: severe distress Neck: normal alignment Cardiovascular: tachycardia Respiratory/Chest: decreased breath sounds Abdomen: normal bowel sounds Objective Current Medications Medications (Trade) Dose Ordered Sig/Nora Route PRN Reason Start Time Stop Time Status Last Admin Dose Admin Acetaminophen (Tylenol) 650 mg Q4H PRN ORAL Mild Pain/Temp > 100.5 12/20/18 06:30 01/19/19 06:29 12/20/18 14:30 Dextrose (Dextrose 50%) 25 ml Q30M PRN IV Hypoglycemia 12/20/18 19:00 01/19/19 18:59 Dextrose (Dextrose 50%) 50 ml Q30M PRN IV Hypoglycemia 12/20/18 19:00 01/19/19 18:59 Insulin Aspart (NovoLOG) Q6HR SUBQ 12/20/18 12:00 01/19/19 11:59 12/21/18 05:30 Insulin Detemir (Levemir) 15 units BID SUBQ 12/21/18 09:00 01/20/19 08:59 Lansoprazole (Prevacid) 30 mg BID GT 12/20/18 18:00 01/20/19 08:59 12/20/18 17:59 Norepinephrine Bitartrate 4 mg/ Dextrose 250 ml @ 0 mls/hr Q24H IV 12/20/18 07:00 01/19/19 06:59 12/20/18 18:25 Piperacillin Sod/ Tazobactam Sod 3.375 gm/Sodium Chloride 110 ml @ 27.5 mls/hr Q8HR IVPB 12/20/18 12:00 12/27/18 11:59 12/21/18 05:28 Sodium Chloride 1,000 ml @ 150 mls/hr Q6H40M IV 12/20/18 07:00 01/19/19 06:59 12/21/18 02:37 Vancomycin HCl (Vanco rx to dose) 1 ea DAILY PRN MISC Per rx protocol 12/20/18 11:00 01/19/19 10:59 Pablo Day MD Dec 21, 2018 06:52
[2018-12-21 07:21] LABS: WHITE BLOOD COUNT 23.5 K/UL (4.8-10.8)
[2018-12-21 07:24] LABS: ALANINE AMINOTRANSFERASE 21 U/L (12-78); ALBUMIN 1.7 G/DL (3.4-5.0); ALBUMIN/GLOBULIN RATIO 0.3 (1.0-2.7); ALKALINE PHOSPHATASE 62 U/L (46-116); ANION GAP 13 mmol/L (5-15); ASPARTATE AMINO TRANSFERASE 22 U/L (15-37); BILIRUBIN,TOTAL 0.3 MG/DL (0.2-1.0); BLOOD UREA NITROGEN 81 mg/dL (7-18); CALCIUM 7.7 MG/DL (8.5-10.1); CARBON DIOXIDE 24 MMOL/L (21-32); CHLORIDE 114 MMOL/L (98-107); CREATININE 1.8 MG/DL (0.55-1.30); PHOSPHORUS 2.6 MG/DL (2.5-4.9); POTASSIUM 3.1 MMOL/L (3.5-5.1); SODIUM 151 MMOL/L (136-145)
--- NOTE | 2018-12-21 08:38 | Critical Care Progress Note ---
Assessment/Plan Assessment/Plan Respiratory failure, acute sepsis hypotension sacral ulcer hypernatremia acute renal failure severe protein calorie malnutrition hypoxemia, severe hypercapnia possible pneumonia possible demand ischemia PLAN care noted an reviewed on vent hypoxemia- taper oxygen as able PEEP as needed antibiotics and cultures noted hydration supportive care ICU care medications/laboratory data/nursing notes/ICU care reviewed in detail note reviewed and edited care discussed with RN and RT ICU time spent 40 minutes Critical Care - Subjective Interval Events: reviewed; on vent events noted in ICU ROS Limited/Unobtainable: Yes Condition: critical EKG Rhythm: Sinus Rhythm I&O: Intake and Output 12/20/18 12/21/18 19:00 07:00 Intake Total 2243.75 ml 3507.50 ml Output Total 1570 ml 755 ml Balance 673.75 ml 2752.50 ml Intake Free Water 100 ml 350 ml IV Total 2143.75 ml 3157.50 ml Output Urine Total 1170 ml 755 ml Stool Total 400 ml # Bowel Movements 11 Critical Care - Objective ET-Tube: 7.5 ET Position: 23 Last 24 Hour Vital Signs Date Time Temp Pulse Resp B/P (MAP) Pulse Ox O2 Delivery O2 Flow Rate FiO2 12/21/18 07:00 65 20 105/45 100 Mechanical Ventilator 60 12/21/18 06:45 69 18 60 12/21/18 06:30 76 19 101/42 100 Mechanical Ventilator 60 12/21/18 06:00 70 18 105/44 100 Mechanical Ventilator 60 12/21/18 05:30 76 18 108/50 100 Mechanical Ventilator 60 12/21/18 05:05 70 20 75 12/21/18 05:00 75 19 113/48 100 Mechanical Ventilator 60 12/21/18 04:00 99.6 75 22 112/56 100 Mechanical Ventilator 75 12/21/18 04:00 Mechanical Ventilator 12/21/18 04:00 80 12/21/18 04:00 60 12/21/18 03:00 79 20 114/63 100 Mechanical Ventilator 75 12/21/18 02:56 77 21 75 12/21/18 02:30 85 18 116/76 100 Mechanical Ventilator 75 12/21/18 02:00 78 18 103/56 100 Mechanical Ventilator 75 12/21/18 01:30 82 20 103/54 100 Mechanical Ventilator 75 12/21/18 01:05 78 17 75 6/20/19 01:00 78 16 124/45 100 Mechanical Ventilator 75 12/21/18 00:30 81 16 99/65 100 Mechanical Ventilator 75 12/21/18 00:00 75 12/21/18 00:00 75 12/21/18 00:00 98.8 88 15 126/86 100 Mechanical Ventilator 75 12/21/18 00:00 Mechanical Ventilator 12/20/18 23:03 82 21 80 12/20/18 23:00 81 20 121/58 100 Mechanical Ventilator 75 12/20/18 22:30 82 20 115/51 100 Mechanical Ventilator 80 12/20/18 22:00 83 18 110/55 100 Mechanical Ventilator 80 12/20/18 21:30 84 21 112/55 100 Mechanical Ventilator 80 12/20/18 21:04 83 21 80 12/20/18 21:00 84 21 122/52 100 Mechanical Ventilator 80 12/20/18 20:30 74 19 104/56 100 Mechanical Ventilator 80 12/20/18 20:00 99.8 76 22 92/41 100 Mechanical Ventilator 80 12/20/18 20:00 82 12/20/18 20:00 Mechanical Ventilator 12/20/18 20:00 80 12/20/18 19:30 80 20 99/46 100 Mechanical Ventilator 100 12/20/18 19:00 82 20 101/46 100 Mechanical Ventilator 100 12/20/18 18:55 84 22 100 12/20/18 18:30 86 19 103/42 100 Mechanical Ventilator 100 12/20/18 18:25 98/41 12/20/18 18:00 93 19 111/46 100 Mechanical Ventilator 100 12/20/18 17:07 97 24 100 12/20/18 16:00 Mechanical Ventilator 12/20/18 16:00 100 12/20/18 16:00 86 12/20/18 15:00 100.9 12/20/18 14:57 95 21 100 12/20/18 13:24 107 26 100 12/20/18 13:00 107/68 12/20/18 12:00 Mechanical Ventilator 12/20/18 12:00 110/59 12/20/18 12:00 100 12/20/18 12:00 109 12/20/18 11:00 112/58 12/20/18 10:34 107 15 100 12/20/18 10:00 111/56 12/20/18 09:00 109/66 Labs: Labs Test 12/20/18 02:10 12/20/18 02:30 12/20/18 03:35 12/20/18 03:54 White Blood Count 19.9 K/UL (4.8-10.8) Red Blood Count 4.28 M/UL (4.20-5.40) Hemoglobin 11.4 G/DL (12.0-16.0) Hematocrit 37.1 % (37.0-47.0) Mean Corpuscular Volume 87 FL (80-99) Mean Corpuscular Hemoglobin 26.7 PG (27.0-31.0) Mean Corpuscular Hemoglobin Concent 30.8 G/DL (32.0-36.0) Red Cell Distribution Width 16.6 % (11.6-14.8) Platelet Count 399 K/UL (150-450) Mean Platelet Volume 7.6 FL (6.5-10.1) Neutrophils (%) (Auto) % (45.0-75.0) Lymphocytes (%) (Auto) % (20.0-45.0) Monocytes (%) (Auto) % (1.0-10.0) Eosinophils (%) (Auto) % (0.0-3.0) Basophils (%) (Auto) % (0.0-2.0) Sodium Level 158 MMOL/L (136-145) Potassium Level 5.4 MMOL/L (3.5-5.1) Chloride Level 112 MMOL/L (98-107) Carbon Dioxide Level 36 MMOL/L (21-32) Anion Gap 11 mmol/L (5-15) Blood Urea Nitrogen 150 mg/dL (7-18) Creatinine 2.8 MG/DL (0.55-1.30) Estimat Glomerular Filtration Rate mL/min (>60) Glucose Level 528 MG/DL (74-106) Lactic Acid Level 3.80 mmol/L (0.4-2.0) 7.50 mmol/L (0.66-2.22) Calcium Level 10.0 MG/DL (8.5-10.1) Total Bilirubin 0.2 MG/DL (0.2-1.0) Aspartate Amino Transf (AST/SGOT) 15 U/L (15-37) Alanine Aminotransferase (ALT/SGPT) 23 U/L (12-78) Alkaline Phosphatase 134 U/L (46-116) Total Creatine Kinase 141 U/L (26-308) Creatine Kinase MB < 0.5 NG/ML (0.0-3.6) Creatine Kinase MB Relative Index 0.3 Troponin I 0.000 ng/mL (0.000-0.056) Total Protein 9.5 G/DL (6.4-8.2) Albumin 2.4 G/DL (3.4-5.0) Globulin 7.1 g/dL Albumin/Globulin Ratio 0.3 (1.0-2.7) Urine Color Pale yellow Urine Appearance Cloudy Urine pH 6 (4.5-8.0) Urine Specific [place] 1.015 (1.005-1.035) Urine Protein 3+ (NEGATIVE) Urine Glucose (UA) 2+ (NEGATIVE) Urine Ketones Negative (NEGATIVE) Urine Blood 5+ (NEGATIVE) Urine Nitrite Negative (NEGATIVE) Urine Bilirubin Negative (NEGATIVE) Urine Urobilinogen Normal MG/DL (0.0-1.0) Urine Leukocyte Esterase 3+ (NEGATIVE) Urine RBC Tntc /HPF (0 - 2) Urine WBC Tntc /HPF (0 - 2) Urine Squamous Epithelial Cells Few /LPF (NONE/OCC) Urine Bacteria Many /HPF (NONE) Arterial Blood pH 7.316 (7.350-7.450) Arterial Blood Partial Pressure CO2 46.1 mmHg (35.0-45.0) Arterial Blood Partial Pressure O2 73.0 mmHg (75.0-100.0) Arterial Blood HCO3 23.0 mmol/L (22.0-26.0) Arterial Blood Oxygen Saturation 92.0 % (95-100) Arterial Blood Base Excess -3.1 (-2-2) Brock Test Positive Test 12/20/18 07:00 12/20/18 08:00 12/20/18 13:05 12/20/18 13:15 Sodium Level 161 MMOL/L (136-145) Potassium Level 3.5 MMOL/L (3.5-5.1) Chloride Level 126 MMOL/L (98-107) Carbon Dioxide Level 27 MMOL/L (21-32) Anion Gap 9 mmol/L (5-15) Blood Urea Nitrogen 121 mg/dL (7-18) Creatinine 2.1 MG/DL (0.55-1.30) Estimat Glomerular Filtration Rate mL/min (>60) Glucose Level 386 MG/DL (74-106) Lactic Acid Level 2.40 mmol/L (0.4-2.0) 3.80 mmol/L (0.4-2.0) Uric Acid 8.3 MG/DL (2.6-7.2) Calcium Level 7.9 MG/DL (8.5-10.1) Phosphorus Level 3.3 MG/DL (2.5-4.9) Magnesium Level 1.7 MG/DL (1.8-2.4) Iron Level 17 ug/dL (50-175) Total Iron Binding Capacity 144 ug/dL (250-450) Percent Iron Saturation 12 % (15-50) Unsaturated Iron Binding 127 ug/dL (112-346) Ferritin 367 NG/ML (8-388) Total Bilirubin 0.2 MG/DL (0.2-1.0) Gamma Glutamyl Transpeptidase 80 U/L (5-85) Aspartate Amino Transf (AST/SGOT) 18 U/L (15-37) Alanine Aminotransferase (ALT/SGPT) 19 U/L (12-78) Alkaline Phosphatase 89 U/L (46-116) Ammonia 32 umol/L (11-32) Total Creatine Kinase 125 U/L (26-308) Troponin I 0.135 ng/mL (0.000-0.056) 0.175 ng/mL (0.000-0.056) C-Reactive Protein, Quantitative 21.5 mg/dL (0.00-0.90) Pro-B-Type Natriuretic Peptide 861 pg/mL (0-125) Total Protein 7.2 G/DL (6.4-8.2) Albumin 1.4 G/DL (3.4-5.0) Globulin 5.8 g/dL Albumin/Globulin Ratio 0.2 (1.0-2.7) Triglycerides Level 121 MG/DL (30-150) Cholesterol Level 95 MG/DL (< 200) LDL Cholesterol 48 mg/dL (<100) HDL Cholesterol 38 MG/DL (40-60) Cholesterol/HDL Ratio 2.5 (3.3-4.4) Vitamin B12 Level 653 PG/ML (193-986) Folate 79.6 NG/ML (8.6-58.9) Thyroid Stimulating Hormone (TSH) 1.246 uiU/mL (0.358-3.740) White Blood Count 14.5 K/UL (4.8-10.8) Red Blood Count 3.05 M/UL (4.20-5.40) Hemoglobin 8.2 G/DL (12.0-16.0) Hematocrit 26.8 % (37.0-47.0) Mean Corpuscular Volume 88 FL (80-99) Mean Corpuscular Hemoglobin 27.0 PG (27.0-31.0) Mean Corpuscular Hemoglobin Concent 30.7 G/DL (32.0-36.0) Red Cell Distribution Width 16.4 % (11.6-14.8) Platelet Count 262 K/UL (150-450) Mean Platelet Volume 7.2 FL (6.5-10.1) Neutrophils (%) (Auto) 82.6 % (45.0-75.0) Lymphocytes (%) (Auto) 15.0 % (20.0-45.0) Monocytes (%) (Auto) 1.8 % (1.0-10.0) Eosinophils (%) (Auto) 0.5 % (0.0-3.0) Basophils (%) (Auto) 0.2 % (0.0-2.0) Hemoglobin A1c 9.5 % (4.3-6.0) Cortisol AM Sample 14.7 UG/DL Test 12/20/18 16:20 12/20/18 20:50 12/20/18 23:27 12/21/18 04:00 Lactic Acid Level 3.70 mmol/L (0.66-2.22) 3.20 mmol/L (0.4-2.0) 3.00 mmol/L (0.66-2.22) Test 12/21/18 05:00 White Blood Count 23.5 K/UL (4.8-10.8) Red Blood Count 3.38 M/UL (4.20-5.40) Hemoglobin 9.3 G/DL (12.0-16.0) Hematocrit 29.0 % (37.0-47.0) Mean Corpuscular Volume 86 FL (80-99) Mean Corpuscular Hemoglobin 27.5 PG (27.0-31.0) Mean Corpuscular Hemoglobin Concent 32.1 G/DL (32.0-36.0) Red Cell Distribution Width 15.1 % (11.6-14.8) Platelet Count 210 K/UL (150-450) Mean Platelet Volume 7.7 FL (6.5-10.1) Neutrophils (%) (Auto) % (45.0-75.0) Lymphocytes (%) (Auto) % (20.0-45.0) Monocytes (%) (Auto) % (1.0-10.0) Eosinophils (%) (Auto) % (0.0-3.0) Basophils (%) (Auto) % (0.0-2.0) Sodium Level 151 MMOL/L (136-145) Potassium Level 3.1 MMOL/L (3.5-5.1) Chloride Level 114 MMOL/L (98-107) Carbon Dioxide Level 24 MMOL/L (21-32) Anion Gap 13 mmol/L (5-15) Blood Urea Nitrogen 81 mg/dL (7-18) Creatinine 1.8 MG/DL (0.55-1.30) Estimat Glomerular Filtration Rate mL/min (>60) Glucose Level 114 MG/DL (74-106) Uric Acid 6.4 MG/DL (2.6-7.2) Calcium Level 7.7 MG/DL (8.5-10.1) Phosphorus Level 2.6 MG/DL (2.5-4.9) Magnesium Level 1.6 MG/DL (1.8-2.4) Total Bilirubin 0.3 MG/DL (0.2-1.0) Aspartate Amino Transf (AST/SGOT) 22 U/L (15-37) Alanine Aminotransferase (ALT/SGPT) 21 U/L (12-78) Alkaline Phosphatase 62 U/L (46-116) Troponin I 0.105 ng/mL (0.000-0.056) C-Reactive Protein, Quantitative 39.1 mg/dL (0.00-0.90) Pro-B-Type Natriuretic Peptide 4891 pg/mL (0-125) Total Protein 7.0 G/DL (6.4-8.2) Albumin 1.7 G/DL (3.4-5.0) Globulin 5.3 g/dL Albumin/Globulin Ratio 0.3 (1.0-2.7) Random Vancomycin Level 14.4 ug/mL Objective: Sp02 EP Interpretation: reviewed, normal General Appearance: normal inspection, well appearing, no apparent distress, sedated Head: normocephalic, atraumatic Eyes: bilateral eye normal inspection ENT: oral ETT Neck: normal inspection, full range of motion, supple, no meningismus, carotid 2+ Respiratory: decreased breath sounds, moderate breath sounds Cardiovascular #1: regular rhythm, no murmur without MRG; tachy Gastrointestinal: non tender, soft, non-distended, no guarding, no rebound Musculoskeletal: no CCE Neurologic: sedated reviewed and edited Micro: Microbiology Date/Time Source Procedure Growth Status 12/20/18 02:30 Blood Blood Culture - Preliminary NO GROWTH AFTER 24 HOURS Resulted 12/20/18 02:10 Blood Blood Culture - Preliminary NO GROWTH AFTER 24 HOURS Resulted 12/20/18 05:00 Sputum Induced Gram Stain - Final Resulted 12/20/18 05:00 Sputum Culture - Preliminary Staphylococcus Aureus Usual Respiratory [place] Resulted 12/20/18 02:30 Urine,Clean Catch Urine Culture - Preliminary Gram Negative Kalpesh Resulted 12/20/18 04:00 Rectum Received Accucheck: 139 Juan Flanagan MD Dec 21, 2018 08:38
[2018-12-21] MEDS ORDERED: Vancomycin 1gm/D5W 275ml IVPB ONE ×2 (09:00)
[2018-12-21] MEDS: Levemir Flexpen SUBQ SCH ×2 (09:02→18:37)
--- NOTE | 2018-12-21 10:27 | GI Progress Note ---
Assessment/Plan Problems: (1) Anemia, chronic disease ICD Codes: D63.8 - Anemia in other chronic diseases classified elsewhere SNOMED: 755551600, 310759173 (2) Severe dehydration ICD Codes: E86.0 - Dehydration SNOMED: 002999006, 882524357 (3) Respiratory failure with hypoxia ICD Codes: J96.91 - Respiratory failure, unspecified with hypoxia SNOMED: [id number], [id number] Qualifiers: Qualified Codes: J96.01 - Acute respiratory failure with hypoxia Status: stable Status Narrative Discussed with Dr. Vora. Assessment/Plan respiratory failure sepsis ARF G Tube dependent colostomy dependent hold feedings until more stable anemia work up OB stool r/o GI bleed pending read monitor H&H, prn transfusions bowel regimen ppi electrolyte correction fu labs GI procedures only if emergent The patient was seen and examined at bedside and all new and available data was reviewed in the patients chart. I agree with the above findings, impression and plan. (Patient seen earlier today. Signature stamp does not reflect patient encounter time.). - Horacio Vora MD Subjective Subjective limited Objective Last 24 Hour Vital Signs Date Time Temp Pulse Resp B/P (MAP) Pulse Ox O2 Delivery O2 Flow Rate FiO2 12/21/18 09:24 50 12/21/18 09:10 71 20 60 12/21/18 08:30 66 15 97/29 100 Mechanical Ventilator 60 12/21/18 08:00 67 18 101/39 100 Mechanical Ventilator 60 12/21/18 07:30 65 15 105/38 100 Mechanical Ventilator 60 12/21/18 07:00 65 20 105/45 100 Mechanical Ventilator 60 12/21/18 06:45 69 18 60 12/21/18 06:30 76 19 101/42 100 Mechanical Ventilator 60 12/21/18 06:00 70 18 105/44 100 Mechanical Ventilator 60 12/21/18 05:30 76 18 108/50 100 Mechanical Ventilator 60 12/21/18 05:05 70 20 75 12/21/18 05:00 75 19 113/48 100 Mechanical Ventilator 60 12/21/18 04:00 99.6 75 22 112/56 100 Mechanical Ventilator 75 12/21/18 04:00 Mechanical Ventilator 12/21/18 04:00 80 12/21/18 04:00 60 12/21/18 03:00 79 20 114/63 100 Mechanical Ventilator 75 6/20/19 02:56 77 21 75 6/20/19 02:30 85 18 116/76 100 Mechanical Ventilator 75 6/20/19 02:00 78 18 103/56 100 Mechanical Ventilator 75 6/20/19 01:30 82 20 103/54 100 Mechanical Ventilator 75 6/20/19 01:05 78 17 75 6/20/19 01:00 78 16 124/45 100 Mechanical Ventilator 75 6/20/19 00:30 81 16 99/65 100 Mechanical Ventilator 75 6/20/19 00:00 75 6/20/19 00:00 75 6/20/19 00:00 98.8 88 15 126/86 100 Mechanical Ventilator 75 6/ 00:00 Mechanical Ventilator 6// 23:03 82 21 80 6/19/19 23:00 81 20 121/58 100 Mechanical Ventilator 75 6// 22:30 82 20 115/51 100 Mechanical Ventilator 80 6// 22:00 83 18 110/55 100 Mechanical Ventilator 80 6// 21:30 84 21 112/55 100 Mechanical Ventilator 80 6/19/19 21:04 83 21 80 6/19/19 21:00 84 21 122/52 100 Mechanical Ventilator 80 6//19 20:30 74 19 104/56 100 Mechanical Ventilator 80 6/19/19 20:00 99.8 76 22 92/41 100 Mechanical Ventilator 80 6/19/19 20:00 82 6/19/19 20:00 Mechanical Ventilator 6//19 20:00 80 6//19 19:30 80 20 99/46 100 Mechanical Ventilator 100 6//19 19:00 82 20 101/46 100 Mechanical Ventilator 100 6/19/19 18:55 84 22 100 6/19/19 18:30 86 19 103/42 100 Mechanical Ventilator 100 6/19/19 18:25 98/41 6/19/19 18:00 93 19 111/46 100 Mechanical Ventilator 100 6//19 17:07 97 24 100 6/19/19 16:00 Mechanical Ventilator 6//19 16:00 100 6/19/19 16:00 86 6//19 15:00 100.9 6/19/19 14:57 95 21 100 6/19/19 13:24 107 26 100 6/19/19 13:00 107/68 12/20/18 12:00 Mechanical Ventilator 12/20/18 12:00 110/59 12/20/18 12:00 100 12/20/18 12:00 109 12/20/18 11:00 112/58 12/20/18 10:34 107 15 100 Intake and Output 12/20/18 12/21/18 19:00 07:00 Intake Total 2243.75 ml 3507.50 ml Output Total 1570 ml 755 ml Balance 673.75 ml 2752.50 ml Intake Free Water 100 ml 350 ml IV Total 2143.75 ml 3157.50 ml Output Urine Total 1170 ml 755 ml Stool Total 400 ml # Bowel Movements 11 Laboratory Tests Test 12/20/18 13:05 12/20/18 13:15 12/20/18 16:20 12/20/18 20:50 Troponin I 0.175 ng/mL (0.000-0.056) Lactic Acid Level 3.80 mmol/L (0.4-2.0) H 3.70 mmol/L (0.66-2.22) H 3.20 mmol/L (0.4-2.0) H Test 12/20/18 23:27 12/21/18 04:00 12/21/18 05:00 12/21/18 09:05 Lactic Acid Level 3.00 mmol/L (0.66-2.22) H Stool Occult Blood Pending White Blood Count 23.5 K/UL (4.8-10.8) #*H Red Blood Count 3.38 M/UL (4.20-5.40) L Hemoglobin 9.3 G/DL (12.0-16.0) L Hematocrit 29.0 % (37.0-47.0) L Mean Corpuscular Volume 86 FL (80-99) Mean Corpuscular Hemoglobin 27.5 PG (27.0-31.0) Mean Corpuscular Hemoglobin Concent 32.1 G/DL (32.0-36.0) Red Cell Distribution Width 15.1 % (11.6-14.8) H Platelet Count 210 K/UL (150-450) Mean Platelet Volume 7.7 FL (6.5-10.1) Neutrophils (%) (Auto) % (45.0-75.0) Lymphocytes (%) (Auto) % (20.0-45.0) Monocytes (%) (Auto) % (1.0-10.0) Eosinophils (%) (Auto) % (0.0-3.0) Basophils (%) (Auto) % (0.0-2.0) Neutrophils % (Manual) Pending Lymphocytes % (Manual) Pending Platelet Estimate Pending Platelet Morphology Pending Sodium Level 151 MMOL/L (136-145) #H Potassium Level 3.1 MMOL/L (3.5-5.1) L Chloride Level 114 MMOL/L (98-107) H Carbon Dioxide Level 24 MMOL/L (21-32) Anion Gap 13 mmol/L (5-15) Blood Urea Nitrogen 81 mg/dL (7-18) H Creatinine 1.8 MG/DL (0.55-1.30) H Estimat Glomerular Filtration Rate mL/min (>60) Glucose Level 114 MG/DL (74-106) #H Uric Acid 6.4 MG/DL (2.6-7.2) Calcium Level 7.7 MG/DL (8.5-10.1) L Phosphorus Level 2.6 MG/DL (2.5-4.9) Magnesium Level 1.6 MG/DL (1.8-2.4) L Total Bilirubin 0.3 MG/DL (0.2-1.0) Aspartate Amino Transf (AST/SGOT) 22 U/L (15-37) Alanine Aminotransferase (ALT/SGPT) 21 U/L (12-78) Alkaline Phosphatase 62 U/L (46-116) Troponin I 0.105 ng/mL (0.000-0.056) C-Reactive Protein, Quantitative 39.1 mg/dL (0.00-0.90) H Pro-B-Type Natriuretic Peptide 4891 pg/mL (0-125) H Total Protein 7.0 G/DL (6.4-8.2) Albumin 1.7 G/DL (3.4-5.0) L Globulin 5.3 g/dL Albumin/Globulin Ratio 0.3 (1.0-2.7) L Random Vancomycin Level 14.4 ug/mL Arterial Blood pH 7.403 (7.350-7.450) Arterial Blood Partial Pressure CO2 36.8 mmHg (35.0-45.0) Arterial Blood Partial Pressure O2 139.6 mmHg (75.0-100.0) H Arterial Blood HCO3 22.4 mmol/L (22.0-26.0) Arterial Blood Oxygen Saturation 98.1 % (95-100) Arterial Blood Base Excess -2.0 (-2-2) Brock Test Positive Height (Feet): 5 Height (Inches): 6.00 Weight (Pounds): 169 General Appearance: no apparent distress Cardiovascular: normal rate Respiratory/Chest: normal breath sounds, no respiratory distress, other - mech vent Abdominal Exam: normal bowel sounds, non tender, soft Extremities: non-tender Luis Arechiga NP Dec 21, 2018 10:26
--- NOTE | 2018-12-21 11:47 | Diagnostic Imaging Report ---
Indication: Dyspnea Technique: One view of the chest Comparison: 12/20/2018 Findings: Interim reaeration of previously atelectatic right upper lobe. However, there is been interim development of fairly diffuse but predominantly perihilar interstitial and airspace opacities in the left lung. There is also increasing opacification of the left retrocardiac region. There is probably pleural fluid developing on the left. Tube and line positions are stable. The heart remains enlarged Impression: Bilateral infiltrates versus edema, increased since previous exam of the previous day Interim resolution of previously demonstrated right upper lobe atelectasis
[2018-12-21] MEDS ORDERED: Potassium Phosphate 20 MM in NS 275 ML IV ONE (12:00)
[2018-12-21 12:14] LABS: APPEARANCE,URINE SLIGHTLY CLOUDY; BILIRUBIN, URINE NEGATIVE (NEGATIVE); COLOR,URINE PALE YELLOW; GLUCOSE, URINE (UA) NEGATIVE (NEGATIVE); KETONES,URINE NEGATIVE (NEGATIVE); LEUKOCYTE ESTERASE ,URINE 3+ (NEGATIVE); NITRITE,URINE NEGATIVE (NEGATIVE); PH,URINE 5 (4.5-8.0); PROTEIN,URINE 2+ (NEGATIVE); UROBILINOGEN,URINE NORMAL MG/DL (0.0-1.0)
--- NOTE | 2018-12-21 12:15 | Infectious Diseases Prog Note ---
Assessment/Plan Assessment/Plan antibiotics : vancomycin iv, zosyn A 1. staph aureus pneumonia 2. gram negative UTI 3. shock 4. renal failure improving 5. respiratory failure 6. diabetes mellitus 7. leucocytosis increasing P 1. continue iv vancomycin 2. d/c zosyn 3. start meropenem 4. will follow up cultures Subjective ROS Limited/Unobtainable: Yes Allergies: Coded Allergies: ALLOPURINOL (Verified Allergy, Unknown, 12/20/18) Objective Vital Signs Last 24 Hour Vital Signs Date Time Temp Pulse Resp B/P (MAP) Pulse Ox O2 Delivery O2 Flow Rate FiO2 12/21/18 11:30 72 16 100/35 100 Mechanical Ventilator 60 12/21/18 11:00 73 17 102/36 100 Mechanical Ventilator 60 12/21/18 10:32 72 20 50 12/21/18 10:30 72 18 102/41 100 Mechanical Ventilator 60 12/21/18 10:00 72 16 105/35 100 Mechanical Ventilator 60 12/21/18 09:30 72 18 95/32 100 Mechanical Ventilator 60 12/21/18 09:24 50 12/21/18 09:10 71 20 60 12/21/18 09:00 98.8 73 21 94/40 100 Mechanical Ventilator 60 12/21/18 08:30 66 15 97/29 100 Mechanical Ventilator 60 12/21/18 08:00 66 12/21/18 08:00 60 12/21/18 08:00 67 18 101/39 100 Mechanical Ventilator 60 12/21/18 08:00 Mechanical Ventilator 12/21/18 07:30 65 15 105/38 100 Mechanical Ventilator 60 12/21/18 07:00 65 20 105/45 100 Mechanical Ventilator 60 12/21/18 06:45 69 18 60 12/21/18 06:30 76 19 101/42 100 Mechanical Ventilator 60 12/21/18 06:00 70 18 105/44 100 Mechanical Ventilator 60 12/21/18 05:30 76 18 108/50 100 Mechanical Ventilator 60 12/21/18 05:05 70 20 75 12/21/18 05:00 75 19 113/48 100 Mechanical Ventilator 60 12/21/18 04:00 99.6 75 22 112/56 100 Mechanical Ventilator 75 12/21/18 04:00 Mechanical Ventilator 12/21/18 04:00 80 12/21/18 04:00 60 6/20/19 03:00 79 20 114/63 100 Mechanical Ventilator 75 6/20/19 02:56 77 21 75 6/20/19 02:30 85 18 116/76 100 Mechanical Ventilator 75 6/20/19 02:00 78 18 103/56 100 Mechanical Ventilator 75 6/20/19 01:30 82 20 103/54 100 Mechanical Ventilator 75 6/20/19 01:05 78 17 75 6/20/19 01:00 78 16 124/45 100 Mechanical Ventilator 75 6/20/19 00:30 81 16 99/65 100 Mechanical Ventilator 75 6/20/ 00:00 75 6/20/ 00:00 75 6/20/19 00:00 98.8 88 15 126/86 100 Mechanical Ventilator 75 6/ 00:00 Mechanical Ventilator 6/ 23:03 82 21 80 6//19 23:00 81 20 121/58 100 Mechanical Ventilator 75 6// 22:30 82 20 115/51 100 Mechanical Ventilator 80 6/ 22:00 83 18 110/55 100 Mechanical Ventilator 80 6/ 21:30 84 21 112/55 100 Mechanical Ventilator 80 6// 21:04 83 21 80 6/19/19 21:00 84 21 122/52 100 Mechanical Ventilator 80 6//19 20:30 74 19 104/56 100 Mechanical Ventilator 80 6/ 20:00 99.8 76 22 92/41 100 Mechanical Ventilator 80 6//19 20:00 82 6// 20:00 Mechanical Ventilator 6/ 20:00 80 6 19:30 80 20 99/46 100 Mechanical Ventilator 100 6 19:00 82 20 101/46 100 Mechanical Ventilator 100 6//19 18:55 84 22 100 6/19/19 18:30 86 19 103/42 100 Mechanical Ventilator 100 6//19 18:25 98/41 6/19/19 18:00 93 19 111/46 100 Mechanical Ventilator 100 6//19 17:07 97 24 100 6//19 16:00 Mechanical Ventilator 6/ 16:00 100 6//19 16:00 86 6/19 15:00 100.9 6//19 14:57 95 21 100 6/19 13:24 107 26 100 6//19 13:00 107/68 Height (Feet): 5 Height (Inches): 6.00 Weight (Pounds): 169 HEENT: other - intubated Respiratory/Chest: lungs clear Cardiovascular: normal rate, regular rhythm, no gallop/murmur Abdomen: soft, non tender, other - GT, ostomy Extremities: no edema, other Microbiology Date/Time Source Procedure Growth Status 12/20/18 02:30 Blood Blood Culture - Preliminary NO GROWTH AFTER 24 HOURS Resulted 12/20/18 02:10 Blood Blood Culture - Preliminary NO GROWTH AFTER 24 HOURS Resulted 12/20/18 05:00 Sputum Induced Gram Stain - Final Resulted 12/20/18 05:00 Sputum Culture - Preliminary Staphylococcus Aureus Usual Respiratory [place] Resulted 12/20/18 02:30 Urine,Clean Catch Urine Culture - Preliminary Gram Negative Kalpesh Resulted 12/20/18 04:00 Rectum Received Laboratory Tests Test 12/20/18 13:05 12/20/18 13:15 12/20/18 16:20 12/20/18 20:50 Troponin I 0.175 ng/mL (0.000-0.056) Lactic Acid Level 3.80 mmol/L (0.4-2.0) H 3.70 mmol/L (0.66-2.22) H 3.20 mmol/L (0.4-2.0) H Test 12/20/18 23:27 12/21/18 04:00 12/21/18 05:00 12/21/18 09:05 Lactic Acid Level 3.00 mmol/L (0.66-2.22) H Stool Occult Blood Pending White Blood Count 23.5 K/UL (4.8-10.8) #*H Red Blood Count 3.38 M/UL (4.20-5.40) L Hemoglobin 9.3 G/DL (12.0-16.0) L Hematocrit 29.0 % (37.0-47.0) L Mean Corpuscular Volume 86 FL (80-99) Mean Corpuscular Hemoglobin 27.5 PG (27.0-31.0) Mean Corpuscular Hemoglobin Concent 32.1 G/DL (32.0-36.0) Red Cell Distribution Width 15.1 % (11.6-14.8) H Platelet Count 210 K/UL (150-450) Mean Platelet Volume 7.7 FL (6.5-10.1) Neutrophils (%) (Auto) % (45.0-75.0) Lymphocytes (%) (Auto) % (20.0-45.0) Monocytes (%) (Auto) % (1.0-10.0) Eosinophils (%) (Auto) % (0.0-3.0) Basophils (%) (Auto) % (0.0-2.0) Differential Total Cells Counted 100 Neutrophils % (Manual) 77 % (45-75) H Lymphocytes % (Manual) 18 % (20-45) L Monocytes % (Manual) 2 % (1-10) Eosinophils % (Manual) 0 % (0-3) Basophils % (Manual) 0 % (0-2) Band Neutrophils 3 % (0-8) Platelet Estimate Adequate Platelet Morphology Normal Hypochromasia 2+ Anisocytosis 1+ Sodium Level 151 MMOL/L (136-145) #H Potassium Level 3.1 MMOL/L (3.5-5.1) L Chloride Level 114 MMOL/L (98-107) H Carbon Dioxide Level 24 MMOL/L (21-32) Anion Gap 13 mmol/L (5-15) Blood Urea Nitrogen 81 mg/dL (7-18) H Creatinine 1.8 MG/DL (0.55-1.30) H Estimat Glomerular Filtration Rate mL/min (>60) Glucose Level 114 MG/DL (74-106) #H Uric Acid 6.4 MG/DL (2.6-7.2) Calcium Level 7.7 MG/DL (8.5-10.1) L Phosphorus Level 2.6 MG/DL (2.5-4.9) Magnesium Level 1.6 MG/DL (1.8-2.4) L Total Bilirubin 0.3 MG/DL (0.2-1.0) Aspartate Amino Transf (AST/SGOT) 22 U/L (15-37) Alanine Aminotransferase (ALT/SGPT) 21 U/L (12-78) Alkaline Phosphatase 62 U/L (46-116) Troponin I 0.105 ng/mL (0.000-0.056) C-Reactive Protein, Quantitative 39.1 mg/dL (0.00-0.90) H Pro-B-Type Natriuretic Peptide 4891 pg/mL (0-125) H Total Protein 7.0 G/DL (6.4-8.2) Albumin 1.7 G/DL (3.4-5.0) L Globulin 5.3 g/dL Albumin/Globulin Ratio 0.3 (1.0-2.7) L Random Vancomycin Level 14.4 ug/mL Arterial Blood pH 7.403 (7.350-7.450) Arterial Blood Partial Pressure CO2 36.8 mmHg (35.0-45.0) Arterial Blood Partial Pressure O2 139.6 mmHg (75.0-100.0) H Arterial Blood HCO3 22.4 mmol/L (22.0-26.0) Arterial Blood Oxygen Saturation 98.1 % (95-100) Arterial Blood Base Excess -2.0 (-2-2) Brock Test Positive Current Medications Medications (Trade) Dose Ordered Sig/Nora Route PRN Reason Start Time Stop Time Status Last Admin Dose Admin Acetaminophen (Tylenol) 650 mg Q4H PRN ORAL Mild Pain/Temp > 100.5 12/20/18 06:30 01/19/19 06:29 12/20/18 14:30 Dextrose 1,000 ml @ 100 mls/hr Q10H IV 12/21/18 08:30 01/20/19 08:29 12/21/18 09:00 Dextrose (Dextrose 50%) 25 ml Q30M PRN IV Hypoglycemia 12/20/18 19:00 01/19/19 18:59 Dextrose (Dextrose 50%) 50 ml Q30M PRN IV Hypoglycemia 12/20/18 19:00 01/19/19 18:59 Insulin Aspart (NovoLOG) Q6HR SUBQ 12/20/18 12:00 01/19/19 11:59 12/21/18 05:30 Insulin Detemir (Levemir) 15 units BID SUBQ 12/21/18 09:00 01/20/19 08:59 12/21/18 09:02 Lansoprazole (Prevacid) 30 mg BID GT 12/20/18 18:00 01/20/19 08:59 12/21/18 09:01 Norepinephrine Bitartrate 4 mg/ Dextrose 250 ml @ 0 mls/hr Q24H IV 12/20/18 07:00 01/19/19 06:59 12/20/18 18:25 Piperacillin Sod/ Tazobactam Sod 3.375 gm/Sodium Chloride 110 ml @ 27.5 mls/hr Q8HR IVPB 12/20/18 12:00 12/27/18 11:59 12/21/18 05:28 Potassium Phosphate 20 mm/ Sodium Chloride 281.6667 ml @ 46.944 m... ONCE ONCE IV 12/21/18 12:00 12/21/18 17:59 Vancomycin HCl (Vanco rx to dose) 1 ea DAILY PRN MISC Per rx protocol 12/20/18 11:00 01/19/19 10:59 Trinity Pino MD Dec 21, 2018 12:15
[2018-12-21 12:17] LABS: HEMATOCRIT 26.5 % (37.0-47.0); HEMOGLOBIN 8.6 G/DL (12.0-16.0); MEAN CORPUSCULAR VOLUME 84 FL (80-99); PLATELET COUNT 193 K/UL (150-450); RED BLOOD COUNT 3.14 M/UL (4.20-5.40); RED CELL DISTRIBUTION WIDTH 15.2 % (11.6-14.8); WHITE BLOOD COUNT 21.1 K/UL (4.8-10.8)
--- NOTE | 2018-12-21 13:11 | Nephrology Progress Note ---
Assessment/Plan Problem List: (1) Renal failure (ARF), acute on chronic (2) Sepsis (3) Severe dehydration (4) Hyperglycemia due to type 2 diabetes mellitus (5) Hypotension (6) Respiratory failure with hypoxia (7) Anemia (8) PEG (percutaneous endoscopic gastrostomy) status (9) Colostomy status Assessment Acute renal failure- Multifactorial, Pre Renal on Renal DM OOC Respiratory failure, acute- on Vent in ICU sepsis / Shock sacral ulcer hypernatremia due to water deficit severe protein calorie malnutrition and hypoalbuminemia hypoxemia, severe PEG COlostomy Severe Anemia underlying Plan fluids- k , Phos , Mag supplement as neede water via GT antibiotics pressors pulm support 1.5 Units PRBCs transfused 12/20 feeding ,onitor renal parameters Objective Objective Last 24 Hour Vital Signs Date Time Temp Pulse Resp B/P (MAP) Pulse Ox O2 Delivery O2 Flow Rate FiO2 12/21/18 12:30 71 16 105/42 100 Mechanical Ventilator 60 12/21/18 12:00 98.4 71 16 98/40 100 Mechanical Ventilator 60 12/21/18 12:00 Mechanical Ventilator 12/21/18 12:00 60 12/21/18 11:30 72 16 100/35 100 Mechanical Ventilator 60 12/21/18 11:00 73 17 102/36 100 Mechanical Ventilator 60 12/21/18 10:32 72 20 50 12/21/18 10:30 72 18 102/41 100 Mechanical Ventilator 60 12/21/18 10:00 72 16 105/35 100 Mechanical Ventilator 60 12/21/18 09:30 72 18 95/32 100 Mechanical Ventilator 60 12/21/18 09:24 50 12/21/18 09:10 71 20 60 12/21/18 09:00 98.8 73 21 94/40 100 Mechanical Ventilator 60 12/21/18 08:30 66 15 97/29 100 Mechanical Ventilator 60 12/21/18 08:00 66 12/21/18 08:00 60 12/21/18 08:00 67 18 101/39 100 Mechanical Ventilator 60 12/21/18 08:00 Mechanical Ventilator 12/21/18 07:30 65 15 105/38 100 Mechanical Ventilator 60 12/21/18 07:00 65 20 105/45 100 Mechanical Ventilator 60 12/21/18 06:45 69 18 60 12/21/18 06:30 76 19 101/42 100 Mechanical Ventilator 60 6/20/19 06:00 70 18 105/44 100 Mechanical Ventilator 60 6/20/19 05:30 76 18 108/50 100 Mechanical Ventilator 60 6/20/19 05:05 70 20 75 6/20/19 05:00 75 19 113/48 100 Mechanical Ventilator 60 6/20/19 04:00 99.6 75 22 112/56 100 Mechanical Ventilator 75 6/20/19 04:00 Mechanical Ventilator 6/20/ 04:00 80 6/20/ 04:00 60 6/20/ 03:00 79 20 114/63 100 Mechanical Ventilator 75 6/20/19 02:56 77 21 75 6/20/19 02:30 85 18 116/76 100 Mechanical Ventilator 75 6/20/19 02:00 78 18 103/56 100 Mechanical Ventilator 75 6/20/ 01:30 82 20 103/54 100 Mechanical Ventilator 75 6/20/19 01:05 78 17 75 6/20/19 01:00 78 16 124/45 100 Mechanical Ventilator 75 6/20/ 00:30 81 16 99/65 100 Mechanical Ventilator 75 6/20/ 00:00 75 6/20/ 00:00 75 6/20/ 00:00 98.8 88 15 126/86 100 Mechanical Ventilator 75 6/20/ 00:00 Mechanical Ventilator 6// 23:03 82 21 80 6/19/ 23:00 81 20 121/58 100 Mechanical Ventilator 75 6/19/19 22:30 82 20 115/51 100 Mechanical Ventilator 80 6/19/19 22:00 83 18 110/55 100 Mechanical Ventilator 80 6/19/19 21:30 84 21 112/55 100 Mechanical Ventilator 80 6/19/19 21:04 83 21 80 6/19/19 21:00 84 21 122/52 100 Mechanical Ventilator 80 6/19/19 20:30 74 19 104/56 100 Mechanical Ventilator 80 6/19/19 20:00 99.8 76 22 92/41 100 Mechanical Ventilator 80 6/19/19 20:00 82 6/19/19 20:00 Mechanical Ventilator 6/19/19 20:00 80 6/19/19 19:30 80 20 99/46 100 Mechanical Ventilator 100 6//19 19:00 82 20 101/46 100 Mechanical Ventilator 100 6/19/19 18:55 84 22 100 6/19/19 18:30 86 19 103/42 100 Mechanical Ventilator 100 12/20/18 18:25 98/41 12/20/18 18:00 93 19 111/46 100 Mechanical Ventilator 100 12/20/18 17:07 97 24 100 12/20/18 16:00 Mechanical Ventilator 12/20/18 16:00 100 12/20/18 16:00 86 12/20/18 15:00 100.9 12/20/18 14:57 95 21 100 12/20/18 13:24 107 26 100 Intake and Output 12/20/18 12/21/18 18:59 06:59 Intake Total 1825.0 ml 3748.75 ml Output Total 1570 ml 815 ml Balance 255.0 ml 2933.75 ml Intake Free Water 100 ml 350 ml IV Total 1725.0 ml 3398.75 ml Output Urine Total 1170 ml 815 ml Stool Total 400 ml # Bowel Movements 11 Laboratory Tests 12/20/18 13:15: Lactic Acid Level 3.80H 12/20/18 16:20: Lactic Acid Level 3.70H 12/20/18 20:50: Lactic Acid Level 3.20H 12/20/18 23:27: Lactic Acid Level 3.00H 12/21/18 04:00: Stool Occult Blood [Pending] 12/21/18 05:00: White Blood Count 23.5#*H, Red Blood Count 3.38L, Hemoglobin 9.3L, Hematocrit 29.0L, Mean Corpuscular Volume 86, Mean Corpuscular Hemoglobin 27.5, Mean Corpuscular Hemoglobin Concent 32.1, Red Cell Distribution Width 15.1H, Platelet Count 210, Mean Platelet Volume 7.7, Neutrophils (%) (Auto) , Lymphocytes (%) (Auto) , Monocytes (%) (Auto) , Eosinophils (%) (Auto) , Basophils (%) (Auto) , Differential Total Cells Counted 100, Neutrophils % ( Manual) 77H, Lymphocytes % (Manual) 18L, Monocytes % (Manual) 2, Eosinophils % ( Manual) 0, Basophils % (Manual) 0, Band Neutrophils 3, Platelet Estimate Adequate, Platelet Morphology Normal, Hypochromasia 2+, Anisocytosis 1+, Sodium Level 151#H, Potassium Level 3.1L, Chloride Level 114H, Carbon Dioxide Level 24 , Anion Gap 13, Blood Urea Nitrogen 81H, Creatinine 1.8H, Estimat Glomerular Filtration Rate , Glucose Level 114#H, Uric Acid 6.4, Calcium Level 7.7L, Phosphorus Level 2.6, Magnesium Level 1.6L, Total Bilirubin 0.3, Aspartate Amino Transf (AST/SGOT) 22, Alanine Aminotransferase (ALT/SGPT) 21, Alkaline Phosphatase 62, Troponin I 0.105H, C-Reactive Protein, Quantitative 39.1H, Pro-B -Type Natriuretic Peptide 4891H, Total Protein 7.0, Albumin 1.7L, Globulin 5.3, Albumin/Globulin Ratio 0.3L, Random Vancomycin Level 14.4 12/21/18 09:05: Arterial Blood pH 7.403, Arterial Blood Partial Pressure CO2 36.8, Arterial Blood Partial Pressure O2 139.6H, Arterial Blood HCO3 22.4, Arterial Blood Oxygen Saturation 98.1, Arterial Blood Base Excess -2.0, Brock Test Positive 12/21/18 11:00: White Blood Count 21.1H, Red Blood Count 3.14L, Hemoglobin 8.6L, Hematocrit 26.5L, Mean Corpuscular Volume 84, Mean Corpuscular Hemoglobin 27.4, Mean Corpuscular Hemoglobin Concent 32.4, Red Cell Distribution Width 15.2H, Platelet Count 193, Mean Platelet Volume 7.8, Neutrophils (%) (Auto) , Lymphocytes (%) (Auto) , Monocytes (%) (Auto) , Eosinophils (%) (Auto) , Basophils (%) (Auto) , Differential Total Cells Counted 100, Neutrophils % ( Manual) 77H, Lymphocytes % (Manual) 14L, Monocytes % (Manual) 2, Eosinophils % ( Manual) 1, Basophils % (Manual) 0, Band Neutrophils 6, Platelet Estimate Adequate, Platelet Morphology Normal, Hypochromasia 2+, Anisocytosis 1+, Spherocytes 1+, Urine Color Pale yellow, Urine Appearance Slightly cloudy, Urine pH 5, Urine Specific [place] 1.010, Urine Protein 2+H, Urine Glucose (UA) Negative, Urine Ketones Negative, Urine Blood 4+H, Urine Nitrite Negative, Urine Bilirubin Negative, Urine Urobilinogen Normal, Urine Leukocyte Esterase 3+ H, Urine RBC 2-4H, Urine WBC 5-10H, Urine Squamous Epithelial Cells Few, Urine Bacteria Few Height (Feet): 5 Height (Inches): 6.00 Weight (Pounds): 169 EENT: other - vented Cardiovascular: tachycardia Respiratory/Chest: decreased breath sounds Abdomen: distended, other - PEG & COLOSTOMY Servando Cifuentes MD Dec 21, 2018 13:11
[2018-12-21] MEDS: Meropenem 1 GM in NS 55 ML IVPB SCH (13:14)
--- NOTE | 2018-12-21 16:25 | Cardiac Electrophysiology PN ---
Assessment/Plan Assessment/Plan 1. Hypotension due to combination of septic shock in view of high lactic acid of 7.5 as well as severe dehydration. The patient has received 5 liters of normal saline. Levophed DCed. Echocardiogram showed EF 50 to 55 percent. Continue D5W at 100 mL an hour under the management of Dr. Cifuentes. 2. Troponin leak due to renal failure. EKG does not show any acute ST-T wave abnormality and shows sinus tachycardia of 102 with only left atrial enlargement. 3. Respiratory failure. On the ventilator. On IV antibiotics. 4. Dysphagia, status post PEG placement. 5. Status post colostomy bag. 6. Severe dehydration with renal failure and hypernatremia. On IV fluids per Dr. Cifuentes. 7. Stage IV decubitus ulcer. The patient has hyperglycemia. 8. Anemia of chronic disease. S/p PRBC . [place] RN Subjective Subjective Had blood transfusion yesterday. Off pressors in ICU on the vent with no arrhythmias overnight Objective Last 24 Hour Vital Signs Date Time Temp Pulse Resp B/P (MAP) Pulse Ox O2 Delivery O2 Flow Rate FiO2 12/21/18 16:00 73 17 106/48 100 Mechanical Ventilator 60 12/21/18 16:00 Mechanical Ventilator 12/21/18 16:00 40 12/21/18 15:30 69 15 93/44 100 Mechanical Ventilator 60 12/21/18 15:00 67 15 93/41 100 Mechanical Ventilator 60 12/21/18 14:46 69 15 40 12/21/18 14:30 67 15 94/44 100 Mechanical Ventilator 60 12/21/18 14:00 72 15 108/46 100 Mechanical Ventilator 60 12/21/18 13:30 73 15 107/38 100 Mechanical Ventilator 60 12/21/18 13:00 71 16 102/49 100 Mechanical Ventilator 60 12/21/18 12:42 77 20 50 12/21/18 12:30 71 16 105/42 100 Mechanical Ventilator 60 12/21/18 12:00 98.4 71 16 98/40 100 Mechanical Ventilator 60 12/21/18 12:00 Mechanical Ventilator 12/21/18 12:00 60 12/21/18 12:00 70 12/21/18 11:30 72 16 100/35 100 Mechanical Ventilator 60 12/21/18 11:00 73 17 102/36 100 Mechanical Ventilator 60 6/20/19 10:32 72 20 50 6/20/19 10:30 72 18 102/41 100 Mechanical Ventilator 60 6/20/19 10:00 72 16 105/35 100 Mechanical Ventilator 60 6/20/19 09:30 72 18 95/32 100 Mechanical Ventilator 60 6/20/19 09:24 50 6/20/19 09:10 71 20 60 6/20/19 09:00 98.8 73 21 94/40 100 Mechanical Ventilator 60 6/20/19 08:30 66 15 97/29 100 Mechanical Ventilator 60 6/20/19 08:00 66 6/20/19 08:00 60 6/20/19 08:00 67 18 101/39 100 Mechanical Ventilator 60 6/20/19 08:00 Mechanical Ventilator 6/20/19 07:30 65 15 105/38 100 Mechanical Ventilator 60 6/20/19 07:00 65 20 105/45 100 Mechanical Ventilator 60 6/20/19 06:45 69 18 60 6/20/19 06:30 76 19 101/42 100 Mechanical Ventilator 60 6/20/19 06:00 70 18 105/44 100 Mechanical Ventilator 60 6/20/19 05:30 76 18 108/50 100 Mechanical Ventilator 60 6/20/19 05:05 70 20 75 6/20/19 05:00 75 19 113/48 100 Mechanical Ventilator 60 6/20/19 04:00 99.6 75 22 112/56 100 Mechanical Ventilator 75 6/20/19 04:00 Mechanical Ventilator 6/20/19 04:00 80 6/20/19 04:00 60 6/20/19 03:00 79 20 114/63 100 Mechanical Ventilator 75 6/20/19 02:56 77 21 75 6/20/19 02:30 85 18 116/76 100 Mechanical Ventilator 75 6/20/19 02:00 78 18 103/56 100 Mechanical Ventilator 75 6/20/19 01:30 82 20 103/54 100 Mechanical Ventilator 75 6/20/19 01:05 78 17 75 6/20/19 01:00 78 16 124/45 100 Mechanical Ventilator 75 6/20/19 00:30 81 16 99/65 100 Mechanical Ventilator 75 6/20/19 00:00 75 6/20/19 00:00 75 6/20/19 00:00 98.8 88 15 126/86 100 Mechanical Ventilator 75 6/20/ 00:00 Mechanical Ventilator 6/19/ 23:03 82 21 80 12/20/18 23:00 81 20 121/58 100 Mechanical Ventilator 75 12/20/18 22:30 82 20 115/51 100 Mechanical Ventilator 80 12/20/18 22:00 83 18 110/55 100 Mechanical Ventilator 80 12/20/18 21:30 84 21 112/55 100 Mechanical Ventilator 80 12/20/18 21:04 83 21 80 12/20/18 21:00 84 21 122/52 100 Mechanical Ventilator 80 12/20/18 20:30 74 19 104/56 100 Mechanical Ventilator 80 12/20/18 20:00 99.8 76 22 92/41 100 Mechanical Ventilator 80 12/20/18 20:00 82 12/20/18 20:00 Mechanical Ventilator 12/20/18 20:00 80 12/20/18 19:30 80 20 99/46 100 Mechanical Ventilator 100 12/20/18 19:00 82 20 101/46 100 Mechanical Ventilator 100 12/20/18 18:55 84 22 100 12/20/18 18:30 86 19 103/42 100 Mechanical Ventilator 100 12/20/18 18:25 98/41 12/20/18 18:00 93 19 111/46 100 Mechanical Ventilator 100 12/20/18 17:07 97 24 100 Intake and Output 12/20/18 12/21/18 18:59 06:59 Intake Total 1825.0 ml 3748.75 ml Output Total 1570 ml 815 ml Balance 255.0 ml 2933.75 ml Intake Free Water 100 ml 350 ml IV Total 1725.0 ml 3398.75 ml Output Urine Total 1170 ml 815 ml Stool Total 400 ml # Bowel Movements 11 Laboratory Tests Test 12/20/18 20:50 12/20/18 23:27 12/21/18 04:00 12/21/18 05:00 Lactic Acid Level 3.20 mmol/L (0.4-2.0) H 3.00 mmol/L (0.66-2.22) H Stool Occult Blood Positive (NEGATIVE) White Blood Count 23.5 K/UL (4.8-10.8) #*H Red Blood Count 3.38 M/UL (4.20-5.40) L Hemoglobin 9.3 G/DL (12.0-16.0) L Hematocrit 29.0 % (37.0-47.0) L Mean Corpuscular Volume 86 FL (80-99) Mean Corpuscular Hemoglobin 27.5 PG (27.0-31.0) Mean Corpuscular Hemoglobin Concent 32.1 G/DL (32.0-36.0) Red Cell Distribution Width 15.1 % (11.6-14.8) H Platelet Count 210 K/UL (150-450) Mean Platelet Volume 7.7 FL (6.5-10.1) Neutrophils (%) (Auto) % (45.0-75.0) Lymphocytes (%) (Auto) % (20.0-45.0) Monocytes (%) (Auto) % (1.0-10.0) Eosinophils (%) (Auto) % (0.0-3.0) Basophils (%) (Auto) % (0.0-2.0) Differential Total Cells Counted 100 Neutrophils % (Manual) 77 % (45-75) H Lymphocytes % (Manual) 18 % (20-45) L Monocytes % (Manual) 2 % (1-10) Eosinophils % (Manual) 0 % (0-3) Basophils % (Manual) 0 % (0-2) Band Neutrophils 3 % (0-8) Platelet Estimate Adequate Platelet Morphology Normal Hypochromasia 2+ Anisocytosis 1+ Sodium Level 151 MMOL/L (136-145) #H Potassium Level 3.1 MMOL/L (3.5-5.1) L Chloride Level 114 MMOL/L (98-107) H Carbon Dioxide Level 24 MMOL/L (21-32) Anion Gap 13 mmol/L (5-15) Blood Urea Nitrogen 81 mg/dL (7-18) H Creatinine 1.8 MG/DL (0.55-1.30) H Estimat Glomerular Filtration Rate mL/min (>60) Glucose Level 114 MG/DL (74-106) #H Uric Acid 6.4 MG/DL (2.6-7.2) Calcium Level 7.7 MG/DL (8.5-10.1) L Phosphorus Level 2.6 MG/DL (2.5-4.9) Magnesium Level 1.6 MG/DL (1.8-2.4) L Total Bilirubin 0.3 MG/DL (0.2-1.0) Aspartate Amino Transf (AST/SGOT) 22 U/L (15-37) Alanine Aminotransferase (ALT/SGPT) 21 U/L (12-78) Alkaline Phosphatase 62 U/L (46-116) Troponin I 0.105 ng/mL (0.000-0.056) C-Reactive Protein, Quantitative 39.1 mg/dL (0.00-0.90) H Pro-B-Type Natriuretic Peptide 4891 pg/mL (0-125) H Total Protein 7.0 G/DL (6.4-8.2) Albumin 1.7 G/DL (3.4-5.0) L Globulin 5.3 g/dL Albumin/Globulin Ratio 0.3 (1.0-2.7) L Random Vancomycin Level 14.4 ug/mL Test 12/21/18 09:05 12/21/18 11:00 12/21/18 15:00 Arterial Blood pH 7.403 (7.350-7.450) Arterial Blood Partial Pressure CO2 36.8 mmHg (35.0-45.0) Arterial Blood Partial Pressure O2 139.6 mmHg (75.0-100.0) H Arterial Blood HCO3 22.4 mmol/L (22.0-26.0) Arterial Blood Oxygen Saturation 98.1 % (95-100) Arterial Blood Base Excess -2.0 (-2-2) Brock Test Positive White Blood Count 21.1 K/UL (4.8-10.8) H Red Blood Count 3.14 M/UL (4.20-5.40) L Hemoglobin 8.6 G/DL (12.0-16.0) L Hematocrit 26.5 % (37.0-47.0) L Mean Corpuscular Volume 84 FL (80-99) Mean Corpuscular Hemoglobin 27.4 PG (27.0-31.0) Mean Corpuscular Hemoglobin Concent 32.4 G/DL (32.0-36.0) Red Cell Distribution Width 15.2 % (11.6-14.8) H Platelet Count 193 K/UL (150-450) Mean Platelet Volume 7.8 FL (6.5-10.1) Neutrophils (%) (Auto) % (45.0-75.0) Lymphocytes (%) (Auto) % (20.0-45.0) Monocytes (%) (Auto) % (1.0-10.0) Eosinophils (%) (Auto) % (0.0-3.0) Basophils (%) (Auto) % (0.0-2.0) Differential Total Cells Counted 100 Neutrophils % (Manual) 77 % (45-75) H Lymphocytes % (Manual) 14 % (20-45) L Monocytes % (Manual) 2 % (1-10) Eosinophils % (Manual) 1 % (0-3) Basophils % (Manual) 0 % (0-2) Band Neutrophils 6 % (0-8) Platelet Estimate Adequate Platelet Morphology Normal Hypochromasia 2+ Anisocytosis 1+ Spherocytes 1+ Urine Color Pale yellow Urine Appearance Slightly cloudy Urine pH 5 (4.5-8.0) Urine Specific [place] 1.010 (1.005-1.035) Urine Protein 2+ (NEGATIVE) H Urine Glucose (UA) Negative (NEGATIVE) Urine Ketones Negative (NEGATIVE) Urine Blood 4+ (NEGATIVE) H Urine Nitrite Negative (NEGATIVE) Urine Bilirubin Negative (NEGATIVE) Urine Urobilinogen Normal MG/DL (0.0-1.0) Urine Leukocyte Esterase 3+ (NEGATIVE) H Urine RBC 2-4 /HPF (0 - 2) H Urine WBC 5-10 /HPF (0 - 2) H Urine Squamous Epithelial Cells Few /LPF (NONE/OCC) Urine Bacteria Few /HPF (NONE) Lactic Acid Level 0.90 mmol/L (0.4-2.0) Microbiology Date/Time Source Procedure Growth Status 12/20/18 02:30 Blood Blood Culture - Preliminary NO GROWTH AFTER 24 HOURS Resulted 12/20/18 02:10 Blood Blood Culture - Preliminary NO GROWTH AFTER 24 HOURS Resulted 12/20/18 05:00 Sputum Induced Gram Stain - Final Resulted 12/20/18 05:00 Sputum Culture - Preliminary Staphylococcus Aureus Usual Respiratory [place] Resulted 12/20/18 02:30 Urine,Clean Catch Urine Culture - Preliminary Gram Negative Kalpesh Resulted 12/20/18 04:00 Rectum Received Objective HEAD AND NECK: No JVD. LUNGS: Coarse rhonchi. She is orally intubated. CARDIOVASCULAR: Shows mildly tachycardic, S1, S2 with no gallop or murmur. ABDOMEN: Soft and nontender. EXTREMITIES: No pitting edema. She has a G-tube and a colostomy bag. Logan Singh MD Dec 21, 2018 16:25
--- NOTE | 2018-12-21 19:00 | Hematology/Onc Progress Note ---
Assessment/Plan Assessment/Plan Assessment and Recs: # Anemia of chronic disease due to underlying chronic medical issues, multifactorial , ferritin 366, tibc 144 --> Anemia workup has been ordered, rule out gi bleed --> No evidence of hemolysis is noted, peripheral smear has been reviewed. --> Hgb goal >7. Transfuse prn. --> Epogen or iron at this time is not particularly indicated --> Medications have been reviewed --> low threshold for gi evaluation in case has occult + # Leukocytosis/elevated white blood cell count, is due to underlying sepsis urine infection+ --> have reviewed peripheral smear and bandemia/neutrophilia noted --> continue antibiotics if they have been started by ID team --> monitor for resolution ==> per id eval --> trend 15-->24-->21k # Respiratory failure with hypoxia --> s/p vent placement intubated 12/20/18 now extubated --> pulm eval # Sacral decubitus ulcer, stage IV --> per surg # HCAP (healthcare-associated pneumonia) # ARF (acute renal failure) --> per renal # Hyperglycemia due to type 2 diabetes mellitus # Acute metabolic encephalopathy # Severe dehydration The timing of this note does not necessarily reflect the time of the patient was seen. GREATLY APPRECIATE CONSULTATION. Subjective Constitutional: Denies: no symptoms, chills, fever, malaise, weakness, other HEENT: Denies: no symptoms, eye pain, blurred vision, tearing, double vision, ear pain, ear discharge, nose pain, nose congestion, throat pain, throat swelling, mouth pain, mouth swelling, other Cardiovascular: Denies: no symptoms, chest pain, edema, irregular heart rate, lightheadedness, palpitations, syncope, other Respiratory: Denies: no symptoms, cough, shortness of breath, SOB with excertion, SOB at rest, sputum, wheezing, other Gastrointestinal/Abdominal: Denies: no symptoms, abdomen distended, abdominal pain, black stools, tarry stools, blood in stool, constipated, diarrhea, difficulty swallowing, nausea, poor appetite, poor fluid intake, rectal bleeding , vomiting, other Genitourinary: Denies: no symptoms, burning, discharge, frequency, flank pain, hematuria, incontinence, pain, urgency, other Neurologic/Psychiatric: Denies: no symptoms, anxiety, depressed, emotional problems, headache, numbness, paresthesia, pre-existing deficit, seizure, tingling, tremors, weakness, other Endocrine: Denies: no symptoms, excessive sweating, flushing, intolerance to cold, intolerance to heat, increased hunger, increased thirst, increased urine, unexplained weight gain, unexplained weight loss, other Allergies: Coded Allergies: ALLOPURINOL (Verified Allergy, Unknown, 12/20/18) Subjective 12/21: no events, on abx, off vent, with pressor Objective Objective Current Medications Medications (Trade) Dose Ordered Sig/Nora Route PRN Reason Start Time Stop Time Status Last Admin Dose Admin Acetaminophen (Tylenol) 650 mg Q4H PRN ORAL Mild Pain/Temp > 100.5 12/20/18 06:30 01/19/19 06:29 12/20/18 14:30 Dextrose 1,000 ml @ 100 mls/hr Q10H IV 12/21/18 08:30 01/20/19 08:29 12/21/18 18:34 Dextrose (Dextrose 50%) 25 ml Q30M PRN IV Hypoglycemia 12/20/18 19:00 01/19/19 18:59 Dextrose (Dextrose 50%) 50 ml Q30M PRN IV Hypoglycemia 12/20/18 19:00 01/19/19 18:59 Insulin Aspart (NovoLOG) Q6HR SUBQ 12/20/18 12:00 01/19/19 11:59 12/21/18 18:38 Insulin Detemir (Levemir) 15 units BID SUBQ 12/21/18 09:00 01/20/19 08:59 12/21/18 18:37 Lansoprazole (Prevacid) 30 mg BID GT 12/20/18 18:00 01/20/19 08:59 12/21/18 18:00 Meropenem 1 gm/ Sodium Chloride 55 ml @ 110 mls/hr Q12HR@0100,1300 IVPB 12/21/18 13:00 12/26/18 12:59 12/21/18 13:14 Norepinephrine Bitartrate 4 mg/ Dextrose 250 ml @ 0 mls/hr Q24H IV 12/20/18 07:00 01/19/19 06:59 12/20/18 18:25 Vancomycin HCl (Vanco rx to dose) 1 ea DAILY PRN MISC Per rx protocol 12/20/18 11:00 01/19/19 10:59 Last 24 Hour Vital Signs Date Time Temp Pulse Resp B/P (MAP) Pulse Ox O2 Delivery O2 Flow Rate FiO2 12/21/18 16:55 72 17 40 12/21/18 16:00 73 17 106/48 100 Mechanical Ventilator 60 12/21/18 16:00 Mechanical Ventilator 12/21/18 16:00 40 12/21/18 16:00 70 12/21/18 15:30 69 15 93/44 100 Mechanical Ventilator 60 12/21/18 15:00 67 15 93/41 100 Mechanical Ventilator 60 12/21/18 14:46 69 15 40 12/21/18 14:30 67 15 94/44 100 Mechanical Ventilator 60 12/21/18 14:00 72 15 108/46 100 Mechanical Ventilator 60 12/21/18 13:30 73 15 107/38 100 Mechanical Ventilator 60 12/21/18 13:00 71 16 102/49 100 Mechanical Ventilator 60 12/21/18 12:42 77 20 50 12/21/18 12:30 71 16 105/42 100 Mechanical Ventilator 60 12/21/18 12:00 98.4 71 16 98/40 100 Mechanical Ventilator 60 12/21/18 12:00 Mechanical Ventilator 12/21/18 12:00 60 12/21/18 12:00 70 12/21/18 11:30 72 16 100/35 100 Mechanical Ventilator 60 12/21/18 11:00 73 17 102/36 100 Mechanical Ventilator 60 12/21/18 10:32 72 20 50 12/21/18 10:30 72 18 102/41 100 Mechanical Ventilator 60 12/21/18 10:00 72 16 105/35 100 Mechanical Ventilator 60 12/21/18 09:30 72 18 95/32 100 Mechanical Ventilator 60 12/21/18 09:24 50 12/21/18 09:10 71 20 60 12/21/18 09:00 98.8 73 21 94/40 100 Mechanical Ventilator 60 12/21/18 08:30 66 15 97/29 100 Mechanical Ventilator 60 12/21/18 08:00 66 12/21/18 08:00 60 12/21/18 08:00 67 18 101/39 100 Mechanical Ventilator 60 12/21/18 08:00 Mechanical Ventilator 12/21/18 07:30 65 15 105/38 100 Mechanical Ventilator 60 6/20/19 07:00 65 20 105/45 100 Mechanical Ventilator 60 6/20/19 06:45 69 18 60 6/20/19 06:30 76 19 101/42 100 Mechanical Ventilator 60 6/20/19 06:00 70 18 105/44 100 Mechanical Ventilator 60 6/20/19 05:30 76 18 108/50 100 Mechanical Ventilator 60 6/20/19 05:05 70 20 75 6/20/19 05:00 75 19 113/48 100 Mechanical Ventilator 60 6/20/19 04:00 99.6 75 22 112/56 100 Mechanical Ventilator 75 6/20/19 04:00 Mechanical Ventilator 6/20/19 04:00 80 6/20/19 04:00 60 6/20/19 03:00 79 20 114/63 100 Mechanical Ventilator 75 6/20/19 02:56 77 21 75 6/20/19 02:30 85 18 116/76 100 Mechanical Ventilator 75 6/20/19 02:00 78 18 103/56 100 Mechanical Ventilator 75 6/20/19 01:30 82 20 103/54 100 Mechanical Ventilator 75 6/20/19 01:05 78 17 75 6/20/19 01:00 78 16 124/45 100 Mechanical Ventilator 75 6/20/19 00:30 81 16 99/65 100 Mechanical Ventilator 75 6/20/19 00:00 75 6/20/19 00:00 75 6/20/19 00:00 98.8 88 15 126/86 100 Mechanical Ventilator 75 6/20/19 00:00 Mechanical Ventilator 6/19/19 23:03 82 21 80 6/19/19 23:00 81 20 121/58 100 Mechanical Ventilator 75 6/19/19 22:30 82 20 115/51 100 Mechanical Ventilator 80 6/19/19 22:00 83 18 110/55 100 Mechanical Ventilator 80 6/19/19 21:30 84 21 112/55 100 Mechanical Ventilator 80 6/19/19 21:04 83 21 80 6/19/19 21:00 84 21 122/52 100 Mechanical Ventilator 80 6/19/19 20:30 74 19 104/56 100 Mechanical Ventilator 80 6/19/19 20:00 99.8 76 22 92/41 100 Mechanical Ventilator 80 6/19/19 20:00 82 6/19/19 20:00 Mechanical Ventilator 6/19/19 20:00 80 12/20/18 19:30 80 20 99/46 100 Mechanical Ventilator 100 12/20/18 19:00 82 20 101/46 100 Mechanical Ventilator 100 12/20/18 18:55 84 22 100 12/20/18 18:30 86 19 103/42 100 Mechanical Ventilator 100 12/20/18 18:25 98/41 12/20/18 18:00 93 19 111/46 100 Mechanical Ventilator 100 12/20/18 17:07 97 24 100 12/20/18 16:00 Mechanical Ventilator 12/20/18 16:00 100 12/20/18 16:00 86 12/20/18 15:00 100.9 12/20/18 14:57 95 21 100 12/20/18 13:24 107 26 100 12/20/18 13:00 107/68 12/20/18 12:00 Mechanical Ventilator 12/20/18 12:00 110/59 12/20/18 12:00 100 12/20/18 12:00 109 12/20/18 11:00 112/58 12/20/18 10:34 107 15 100 12/20/18 10:00 111/56 12/20/18 09:00 109/66 12/20/18 08:30 97 15 100 12/20/18 08:00 97 12/20/18 08:00 Mechanical Ventilator 12/20/18 08:00 149/63 12/20/18 07:30 83/54 12/20/18 06:48 95 25 100 12/20/18 06:06 100 12/20/18 05:51 Mechanical Ventilator 12/20/18 05:41 98.5 98 18 98/60 100 Mechanical Ventilator 15.0 100 12/20/18 05:20 110 18 100 12/20/18 04:53 98 18 98/82 100 Mechanical Ventilator 100 12/20/18 03:31 88 18 102/50 98 100 12/20/18 03:11 98.5 12/20/18 02:52 117 28 100 12/20/18 02:21 101.2 142 22 94/44 90 Bi-pap 12/20/18 02:21 142 22 Non-Rebreather 15.0 12/20/18 02:15 144 44 98 Bi-Pap 100 12/20/18 02:15 144 44 98 Full Face 100 12/20/18 02:11 99.9 116 22 94/44 (61) 94 Non-Rebreather 15.0 Intake and Output 12/20/18 12/21/18 19:00 07:00 Intake Total 2243.75 ml 3507.50 ml Output Total 1570 ml 755 ml Balance 673.75 ml 2752.50 ml Intake Free Water 100 ml 350 ml IV Total 2143.75 ml 3157.50 ml Output Urine Total 1170 ml 755 ml Stool Total 400 ml # Bowel Movements 11 Labs Test 12/20/18 02:10 12/20/18 02:30 12/20/18 03:35 12/20/18 03:54 White Blood Count 19.9 K/UL (4.8-10.8) Red Blood Count 4.28 M/UL (4.20-5.40) Hemoglobin 11.4 G/DL (12.0-16.0) Hematocrit 37.1 % (37.0-47.0) Mean Corpuscular Volume 87 FL (80-99) Mean Corpuscular Hemoglobin 26.7 PG (27.0-31.0) Mean Corpuscular Hemoglobin Concent 30.8 G/DL (32.0-36.0) Red Cell Distribution Width 16.6 % (11.6-14.8) Platelet Count 399 K/UL (150-450) Mean Platelet Volume 7.6 FL (6.5-10.1) Neutrophils (%) (Auto) % (45.0-75.0) Lymphocytes (%) (Auto) % (20.0-45.0) Monocytes (%) (Auto) % (1.0-10.0) Eosinophils (%) (Auto) % (0.0-3.0) Basophils (%) (Auto) % (0.0-2.0) Sodium Level 158 MMOL/L (136-145) Potassium Level 5.4 MMOL/L (3.5-5.1) Chloride Level 112 MMOL/L (98-107) Carbon Dioxide Level 36 MMOL/L (21-32) Anion Gap 11 mmol/L (5-15) Blood Urea Nitrogen 150 mg/dL (7-18) Creatinine 2.8 MG/DL (0.55-1.30) Estimat Glomerular Filtration Rate mL/min (>60) Glucose Level 528 MG/DL (74-106) Lactic Acid Level 3.80 mmol/L (0.4-2.0) 7.50 mmol/L (0.66-2.22) Calcium Level 10.0 MG/DL (8.5-10.1) Total Bilirubin 0.2 MG/DL (0.2-1.0) Aspartate Amino Transf (AST/SGOT) 15 U/L (15-37) Alanine Aminotransferase (ALT/SGPT) 23 U/L (12-78) Alkaline Phosphatase 134 U/L (46-116) Total Creatine Kinase 141 U/L (26-308) Creatine Kinase MB < 0.5 NG/ML (0.0-3.6) Creatine Kinase MB Relative Index 0.3 Troponin I 0.000 ng/mL (0.000-0.056) Total Protein 9.5 G/DL (6.4-8.2) Albumin 2.4 G/DL (3.4-5.0) Globulin 7.1 g/dL Albumin/Globulin Ratio 0.3 (1.0-2.7) Urine Color Pale yellow Urine Appearance Cloudy Urine pH 6 (4.5-8.0) Urine Specific [place] 1.015 (1.005-1.035) Urine Protein 3+ (NEGATIVE) Urine Glucose (UA) 2+ (NEGATIVE) Urine Ketones Negative (NEGATIVE) Urine Blood 5+ (NEGATIVE) Urine Nitrite Negative (NEGATIVE) Urine Bilirubin Negative (NEGATIVE) Urine Urobilinogen Normal MG/DL (0.0-1.0) Urine Leukocyte Esterase 3+ (NEGATIVE) Urine RBC Tntc /HPF (0 - 2) Urine WBC Tntc /HPF (0 - 2) Urine Squamous Epithelial Cells Few /LPF (NONE/OCC) Urine Bacteria Many /HPF (NONE) Arterial Blood pH 7.316 (7.350-7.450) Arterial Blood Partial Pressure CO2 46.1 mmHg (35.0-45.0) Arterial Blood Partial Pressure O2 73.0 mmHg (75.0-100.0) Arterial Blood HCO3 23.0 mmol/L (22.0-26.0) Arterial Blood Oxygen Saturation 92.0 % (95-100) Arterial Blood Base Excess -3.1 (-2-2) Brock Test Positive Test 12/20/18 07:00 12/20/18 08:00 12/20/18 13:05 12/20/18 13:15 Sodium Level 161 MMOL/L (136-145) Potassium Level 3.5 MMOL/L (3.5-5.1) Chloride Level 126 MMOL/L (98-107) Carbon Dioxide Level 27 MMOL/L (21-32) Anion Gap 9 mmol/L (5-15) Blood Urea Nitrogen 121 mg/dL (7-18) Creatinine 2.1 MG/DL (0.55-1.30) Estimat Glomerular Filtration Rate mL/min (>60) Glucose Level 386 MG/DL (74-106) Lactic Acid Level 2.40 mmol/L (0.4-2.0) 3.80 mmol/L (0.4-2.0) Uric Acid 8.3 MG/DL (2.6-7.2) Calcium Level 7.9 MG/DL (8.5-10.1) Phosphorus Level 3.3 MG/DL (2.5-4.9) Magnesium Level 1.7 MG/DL (1.8-2.4) Iron Level 17 ug/dL (50-175) Total Iron Binding Capacity 144 ug/dL (250-450) Percent Iron Saturation 12 % (15-50) Unsaturated Iron Binding 127 ug/dL (112-346) Ferritin 367 NG/ML (8-388) Total Bilirubin 0.2 MG/DL (0.2-1.0) Gamma Glutamyl Transpeptidase 80 U/L (5-85) Aspartate Amino Transf (AST/SGOT) 18 U/L (15-37) Alanine Aminotransferase (ALT/SGPT) 19 U/L (12-78) Alkaline Phosphatase 89 U/L (46-116) Ammonia 32 umol/L (11-32) Total Creatine Kinase 125 U/L (26-308) Troponin I 0.135 ng/mL (0.000-0.056) 0.175 ng/mL (0.000-0.056) C-Reactive Protein, Quantitative 21.5 mg/dL (0.00-0.90) Pro-B-Type Natriuretic Peptide 861 pg/mL (0-125) Total Protein 7.2 G/DL (6.4-8.2) Albumin 1.4 G/DL (3.4-5.0) Globulin 5.8 g/dL Albumin/Globulin Ratio 0.2 (1.0-2.7) Triglycerides Level 121 MG/DL (30-150) Cholesterol Level 95 MG/DL (< 200) LDL Cholesterol 48 mg/dL (<100) HDL Cholesterol 38 MG/DL (40-60) Cholesterol/HDL Ratio 2.5 (3.3-4.4) Vitamin B12 Level 653 PG/ML (193-986) Folate 79.6 NG/ML (8.6-58.9) Thyroid Stimulating Hormone (TSH) 1.246 uiU/mL (0.358-3.740) White Blood Count 14.5 K/UL (4.8-10.8) Red Blood Count 3.05 M/UL (4.20-5.40) Hemoglobin 8.2 G/DL (12.0-16.0) Hematocrit 26.8 % (37.0-47.0) Mean Corpuscular Volume 88 FL (80-99) Mean Corpuscular Hemoglobin 27.0 PG (27.0-31.0) Mean Corpuscular Hemoglobin Concent 30.7 G/DL (32.0-36.0) Red Cell Distribution Width 16.4 % (11.6-14.8) Platelet Count 262 K/UL (150-450) Mean Platelet Volume 7.2 FL (6.5-10.1) Neutrophils (%) (Auto) 82.6 % (45.0-75.0) Lymphocytes (%) (Auto) 15.0 % (20.0-45.0) Monocytes (%) (Auto) 1.8 % (1.0-10.0) Eosinophils (%) (Auto) 0.5 % (0.0-3.0) Basophils (%) (Auto) 0.2 % (0.0-2.0) Hemoglobin A1c 9.5 % (4.3-6.0) Cortisol AM Sample 14.7 UG/DL Test 12/20/18 16:20 12/20/18 20:50 12/20/18 23:27 12/21/18 04:00 Lactic Acid Level 3.70 mmol/L (0.66-2.22) 3.20 mmol/L (0.4-2.0) 3.00 mmol/L (0.66-2.22) Stool Occult Blood Positive (NEGATIVE) Test 12/21/18 05:00 12/21/18 09:05 12/21/18 11:00 12/21/18 15:00 White Blood Count 23.5 K/UL (4.8-10.8) 21.1 K/UL (4.8-10.8) Red Blood Count 3.38 M/UL (4.20-5.40) 3.14 M/UL (4.20-5.40) Hemoglobin 9.3 G/DL (12.0-16.0) 8.6 G/DL (12.0-16.0) Hematocrit 29.0 % (37.0-47.0) 26.5 % (37.0-47.0) Mean Corpuscular Volume 86 FL (80-99) 84 FL (80-99) Mean Corpuscular Hemoglobin 27.5 PG (27.0-31.0) 27.4 PG (27.0-31.0) Mean Corpuscular Hemoglobin Concent 32.1 G/DL (32.0-36.0) 32.4 G/DL (32.0-36.0) Red Cell Distribution Width 15.1 % (11.6-14.8) 15.2 % (11.6-14.8) Platelet Count 210 K/UL (150-450) 193 K/UL (150-450) Mean Platelet Volume 7.7 FL (6.5-10.1) 7.8 FL (6.5-10.1) Neutrophils (%) (Auto) % (45.0-75.0) % (45.0-75.0) Lymphocytes (%) (Auto) % (20.0-45.0) % (20.0-45.0) Monocytes (%) (Auto) % (1.0-10.0) % (1.0-10.0) Eosinophils (%) (Auto) % (0.0-3.0) % (0.0-3.0) Basophils (%) (Auto) % (0.0-2.0) % (0.0-2.0) Differential Total Cells Counted 100 100 Neutrophils % (Manual) 77 % (45-75) 77 % (45-75) Lymphocytes % (Manual) 18 % (20-45) 14 % (20-45) Monocytes % (Manual) 2 % (1-10) 2 % (1-10) Eosinophils % (Manual) 0 % (0-3) 1 % (0-3) Basophils % (Manual) 0 % (0-2) 0 % (0-2) Band Neutrophils 3 % (0-8) 6 % (0-8) Platelet Estimate Adequate Adequate Platelet Morphology Normal Normal Hypochromasia 2+ 2+ Anisocytosis 1+ 1+ Sodium Level 151 MMOL/L (136-145) Potassium Level 3.1 MMOL/L (3.5-5.1) Chloride Level 114 MMOL/L (98-107) Carbon Dioxide Level 24 MMOL/L (21-32) Anion Gap 13 mmol/L (5-15) Blood Urea Nitrogen 81 mg/dL (7-18) Creatinine 1.8 MG/DL (0.55-1.30) Estimat Glomerular Filtration Rate mL/min (>60) Glucose Level 114 MG/DL (74-106) Uric Acid 6.4 MG/DL (2.6-7.2) Calcium Level 7.7 MG/DL (8.5-10.1) Phosphorus Level 2.6 MG/DL (2.5-4.9) Magnesium Level 1.6 MG/DL (1.8-2.4) Total Bilirubin 0.3 MG/DL (0.2-1.0) Aspartate Amino Transf (AST/SGOT) 22 U/L (15-37) Alanine Aminotransferase (ALT/SGPT) 21 U/L (12-78) Alkaline Phosphatase 62 U/L (46-116) Troponin I 0.105 ng/mL (0.000-0.056) C-Reactive Protein, Quantitative 39.1 mg/dL (0.00-0.90) Pro-B-Type Natriuretic Peptide 4891 pg/mL (0-125) Total Protein 7.0 G/DL (6.4-8.2) Albumin 1.7 G/DL (3.4-5.0) Globulin 5.3 g/dL Albumin/Globulin Ratio 0.3 (1.0-2.7) Random Vancomycin Level 14.4 ug/mL Arterial Blood pH 7.403 (7.350-7.450) Arterial Blood Partial Pressure CO2 36.8 mmHg (35.0-45.0) Arterial Blood Partial Pressure O2 139.6 mmHg (75.0-100.0) Arterial Blood HCO3 22.4 mmol/L (22.0-26.0) Arterial Blood Oxygen Saturation 98.1 % (95-100) Arterial Blood Base Excess -2.0 (-2-2) Brock Test Positive Spherocytes 1+ Urine Color Pale yellow Urine Appearance Slightly cloudy Urine pH 5 (4.5-8.0) Urine Specific [place] 1.010 (1.005-1.035) Urine Protein 2+ (NEGATIVE) Urine Glucose (UA) Negative (NEGATIVE) Urine Ketones Negative (NEGATIVE) Urine Blood 4+ (NEGATIVE) Urine Nitrite Negative (NEGATIVE) Urine Bilirubin Negative (NEGATIVE) Urine Urobilinogen Normal MG/DL (0.0-1.0) Urine Leukocyte Esterase 3+ (NEGATIVE) Urine RBC 2-4 /HPF (0 - 2) Urine WBC 5-10 /HPF (0 - 2) Urine Squamous Epithelial Cells Few /LPF (NONE/OCC) Urine Bacteria Few /HPF (NONE) Lactic Acid Level 0.90 mmol/L (0.4-2.0) Height (Feet): 5 Height (Inches): 6.00 Weight (Pounds): 169 Objective Sp02 EP Interpretation: reviewed General Appearance: severe distress, lethargic, Chronically Ill Head: normocephalic, atraumatic Eyes: bilateral eye PERRL, bilateral eye EOMI ENT: dry mucus membranes Neck: full range of motion, supple, no meningismus Respiratory: chest non-tender, respiratory distress, rhonchi Cardiovascular: regular rate, rhythm, no murmur, tachycardia Gastrointestinal: normal bowel sounds, non tender- Reducible abdominal wall hernia Rectal: other - large sacral Stage 4 ulcer Musculoskeletal: back normal, normal range of motion Psychiatric: mood/affect normal Skin: warm/dry Tobin Stover MD Dec 21, 2018 19:00
--- NOTE | 2018-12-21 19:14 | Cardiology Report ---
APPROVED REPORT EXAM: Two-dimensional and M-mode echocardiogram with Doppler and color Doppler. INDICATION Ejection fration M-Mode DIMENSIONS IVSd1.1 (0.7-1.1cm)Left Atrium (MM)2.7 (1.6-4.0cm) LVDd4.5 (3.5-5.6cm)Aortic Root3.2 (2.0-3.7cm) PWd1.0 (0.7-1.1cm)Aortic Cusp Exc.1.6 (1.5-2.0cm) IVSs1.4 cm LVDs3.3 (2.5-4.0cm) PWs1.3 cm Technically difficult study due to poor acoustical windows. Normal left ventricular chamber size. This study precludes assesmsnet of LV wall motion and EF. No evidence of left ventricular hypertrophy . Anterior Echo-free space, may be due to pericardial fat or effusion. All other cardiac chamber sizes are within normal limits. Aortic valve calcification with normal cusp excursion . Mildly thickened mitral valve leaflets with normal excursion. Mild mitral annulus and aortic root calcification. Pulmonic valve not well visualized. IVC at normal size with physiologic collapse . A color flow and spectral Doppler study was performed and revealed: No aortic insufficiency . Mitral inflow indicates normal left ventricular diastolic function. Mild mitral regurgitation. Moderate tricuspid regurgitation. Tricuspid systolic velocities suggests peak right ventricular systolic pressure of 40 mmHg,consistent with mild pulmonary HTN. Mild pulmonic regurgitation .
--- NOTE | 2018-12-21 19:17 | Cardiology Report ---
APPROVED REPORT EKG Measurement Heart [id number] Sinus tachycardia Rightward axis Nonspecific ST abnormality Abnormal ECG
--- NOTE | 2018-12-21 21:53 | General Progress Note ---
Assessment/Plan Problem List: (1) Anemia, chronic disease ICD Codes: D63.8 - Anemia in other chronic diseases classified elsewhere SNOMED: 631364141, 047666926 (2) Severe dehydration ICD Codes: E86.0 - Dehydration SNOMED: 010717814, 044166324 (3) Hyperglycemia due to type 2 diabetes mellitus ICD Codes: E11.65 - Type 2 diabetes mellitus with hyperglycemia SNOMED: 827003277383498, 64359798 Qualifiers: Qualified Codes: E11.65 - Type 2 diabetes mellitus with hyperglycemia; Z79.4 - jail (current) use of insulin (4) Acute metabolic encephalopathy ICD Codes: G93.41 - Metabolic encephalopathy SNOMED: 60999414, 118371222 (5) Hypotension ICD Codes: I95.9 - Hypotension, unspecified SNOMED: 52564646 (6) ARF (acute renal failure) ICD Codes: N17.9 - Acute kidney failure, unspecified SNOMED: 36686076, 534364564 Qualifiers: Qualified Codes: N17.9 - Acute kidney failure, unspecified (7) Respiratory failure with hypoxia ICD Codes: J96.91 - Respiratory failure, unspecified with hypoxia SNOMED: 36311211169939663, 865600878 Qualifiers: Qualified Codes: J96.01 - Acute respiratory failure with hypoxia (8) Renal failure (ARF), acute on chronic ICD Codes: N17.9 - Acute kidney failure, unspecified; N18.9 - Chronic kidney disease, unspecified SNOMED: 459033368 (9) Anemia ICD Codes: D64.9 - Anemia, unspecified SNOMED: 722522639 Status: stable Assessment/Plan: afebrile resp failure intubated pna arf anemia sacral decub abx per id Subjective ROS Limited/Unobtainable: Yes Allergies: Coded Allergies: ALLOPURINOL (Verified Allergy, Unknown, 12/20/18) Objective Last 24 Hour Vital Signs Date Time Temp Pulse Resp B/P (MAP) Pulse Ox O2 Delivery O2 Flow Rate FiO2 12/21/18 21:06 74 18 40 12/21/18 21:00 74 20 97/41 (59) 99 12/21/18 20:00 73 12/21/18 20:00 40 12/21/18 20:00 98.6 73 17 92/35 (54) 99 12/21/18 20:00 Mechanical Ventilator 6/20/ 19:30 70 20 94/42 100 Mechanical Ventilator 60 6/20/19 19:00 71 19 97/43 100 Mechanical Ventilator 60 6/20/19 18:47 76 21 40 6/20/19 18:30 71 19 92/55 100 Mechanical Ventilator 60 6/20/19 18:00 74 20 94/48 99 Mechanical Ventilator 60 6/20/19 17:30 72 19 91/50 96 Mechanical Ventilator 60 6/20/19 17:00 71 17 101/43 100 Mechanical Ventilator 60 6/20/19 16:55 72 17 40 6/20/19 16:30 98.4 73 18 102/54 100 Mechanical Ventilator 60 6/20 16:00 73 17 106/48 100 Mechanical Ventilator 60 6/20 16:00 Mechanical Ventilator 6/20 16:00 40 6/20 16:00 70 6/ 15:30 69 15 93/44 100 Mechanical Ventilator 60 6/ 15:00 67 15 93/41 100 Mechanical Ventilator 60 6/20 14:46 69 15 40 6/20/ 14:30 67 15 94/44 100 Mechanical Ventilator 60 6/20 14:00 72 15 108/46 100 Mechanical Ventilator 60 6 13:30 73 15 107/38 100 Mechanical Ventilator 60 6/20 13:00 71 16 102/49 100 Mechanical Ventilator 60 6/20 12:42 77 20 50 6/20/ 12:30 71 16 105/42 100 Mechanical Ventilator 60 6 12:00 98.4 71 16 98/40 100 Mechanical Ventilator 60 620 12:00 Mechanical Ventilator 6/20 12:00 60 6/20 12:00 70 6/20/ 11:30 72 16 100/35 100 Mechanical Ventilator 60 6/20/19 11:00 73 17 102/36 100 Mechanical Ventilator 60 6/20/ 10:32 72 20 50 6/20/ 10:30 72 18 102/41 100 Mechanical Ventilator 60 6/20/19 10:00 72 16 105/35 100 Mechanical Ventilator 60 6/20/ 09:30 72 18 95/32 100 Mechanical Ventilator 60 6/20 09:24 50 6/20/19 09:10 71 20 60 6/20/19 09:00 98.8 73 21 94/40 100 Mechanical Ventilator 60 6/20/19 08:30 66 15 97/29 100 Mechanical Ventilator 60 6/20/ 08:00 66 6/20/ 08:00 60 6/20/ 08:00 67 18 101/39 100 Mechanical Ventilator 60 6/20/ 08:00 Mechanical Ventilator 6/20/ 07:30 65 15 105/38 100 Mechanical Ventilator 60 6/20/ 07:00 65 20 105/45 100 Mechanical Ventilator 60 6/20/ 06:45 69 18 60 6/20/19 06:30 76 19 101/42 100 Mechanical Ventilator 60 6/20/ 06:00 70 18 105/44 100 Mechanical Ventilator 60 6/20/ 05:30 76 18 108/50 100 Mechanical Ventilator 60 6/20/ 05:05 70 20 75 6// 05:00 75 19 113/48 100 Mechanical Ventilator 60 6/ 04:00 99.6 75 22 112/56 100 Mechanical Ventilator 75 12/21/18 04:00 Mechanical Ventilator 6 04:00 80 20 04:00 60 12/21/18 03:00 79 20 114/63 100 Mechanical Ventilator 75 6 02:56 77 21 75 6/ 02:30 85 18 116/76 100 Mechanical Ventilator 75 6 02:00 78 18 103/56 100 Mechanical Ventilator 75 6/ 01:30 82 20 103/54 100 Mechanical Ventilator 75 6 01:05 78 17 75 6/ 01:00 78 16 124/45 100 Mechanical Ventilator 75 6 00:30 81 16 99/65 100 Mechanical Ventilator 75 6/20 00:00 75 6/20 00:00 75 6/20/ 00:00 98.8 88 15 126/86 100 Mechanical Ventilator 75 12/21/18 00:00 Mechanical Ventilator 12/20/18 23:03 82 21 80 6 23:00 81 20 121/58 100 Mechanical Ventilator 75 6 22:30 82 20 115/51 100 Mechanical Ventilator 80 12/20/18 22:00 83 18 110/55 100 Mechanical Ventilator 80 Intake and Output 12/20/18 6 19:00 07:00 Intake Total 2243.75 ml 3507.50 ml Output Total 1570 ml 755 ml Balance 673.75 ml 2752.50 ml Intake Free Water 100 ml 350 ml IV Total 2143.75 ml 3157.50 ml Output Urine Total 1170 ml 755 ml Stool Total 400 ml # Bowel Movements 11 Laboratory Tests 12/20/18 23:27: Lactic Acid Level 3.00H 12/21/18 04:00: Stool Occult Blood Positive 12/21/18 05:00: White Blood Count 23.5#*H, Red Blood Count 3.38L, Hemoglobin 9.3L, Hematocrit 29.0L, Mean Corpuscular Volume 86, Mean Corpuscular Hemoglobin 27.5, Mean Corpuscular Hemoglobin Concent 32.1, Red Cell Distribution Width 15.1H, Platelet Count 210, Mean Platelet Volume 7.7, Neutrophils (%) (Auto) , Lymphocytes (%) (Auto) , Monocytes (%) (Auto) , Eosinophils (%) (Auto) , Basophils (%) (Auto) , Differential Total Cells Counted 100, Neutrophils % ( Manual) 77H, Lymphocytes % (Manual) 18L, Monocytes % (Manual) 2, Eosinophils % ( Manual) 0, Basophils % (Manual) 0, Band Neutrophils 3, Platelet Estimate Adequate, Platelet Morphology Normal, Hypochromasia 2+, Anisocytosis 1+, Sodium Level 151#H, Potassium Level 3.1L, Chloride Level 114H, Carbon Dioxide Level 24 , Anion Gap 13, Blood Urea Nitrogen 81H, Creatinine 1.8H, Estimat Glomerular Filtration Rate , Glucose Level 114#H, Uric Acid 6.4, Calcium Level 7.7L, Phosphorus Level 2.6, Magnesium Level 1.6L, Total Bilirubin 0.3, Aspartate Amino Transf (AST/SGOT) 22, Alanine Aminotransferase (ALT/SGPT) 21, Alkaline Phosphatase 62, Troponin I 0.105H, C-Reactive Protein, Quantitative 39.1H, Pro-B -Type Natriuretic Peptide 4891H, Total Protein 7.0, Albumin 1.7L, Globulin 5.3, Albumin/Globulin Ratio 0.3L, Random Vancomycin Level 14.4 12/21/18 09:05: Arterial Blood pH 7.403, Arterial Blood Partial Pressure CO2 36.8, Arterial Blood Partial Pressure O2 139.6H, Arterial Blood HCO3 22.4, Arterial Blood Oxygen Saturation 98.1, Arterial Blood Base Excess -2.0, Brock Test Positive 12/21/18 11:00: White Blood Count 21.1H, Red Blood Count 3.14L, Hemoglobin 8.6L, Hematocrit 26.5L, Mean Corpuscular Volume 84, Mean Corpuscular Hemoglobin 27.4, Mean Corpuscular Hemoglobin Concent 32.4, Red Cell Distribution Width 15.2H, Platelet Count 193, Mean Platelet Volume 7.8, Neutrophils (%) (Auto) , Lymphocytes (%) (Auto) , Monocytes (%) (Auto) , Eosinophils (%) (Auto) , Basophils (%) (Auto) , Differential Total Cells Counted 100, Neutrophils % ( Manual) 77H, Lymphocytes % (Manual) 14L, Monocytes % (Manual) 2, Eosinophils % ( Manual) 1, Basophils % (Manual) 0, Band Neutrophils 6, Platelet Estimate Adequate, Platelet Morphology Normal, Hypochromasia 2+, Anisocytosis 1+, Spherocytes 1+, Urine Color Pale yellow, Urine Appearance Slightly cloudy, Urine pH 5, Urine Specific [place] 1.010, Urine Protein 2+H, Urine Glucose (UA) Negative, Urine Ketones Negative, Urine Blood 4+H, Urine Nitrite Negative, Urine Bilirubin Negative, Urine Urobilinogen Normal, Urine Leukocyte Esterase 3+ H, Urine RBC 2-4H, Urine WBC 5-10H, Urine Squamous Epithelial Cells Few, Urine Bacteria Few 12/21/18 15:00: Lactic Acid Level 0.90 Height (Feet): 5 Height (Inches): 6.00 Weight (Pounds): 169 Danial Walden MD Dec 21, 2018 21:53
--- NOTE | 2018-12-21 23:12 | Diagnostic Imaging Report ---
APPROVED REPORT CPT Code: 06474 Present Symptoms Comments: SOB RIGHT LEG: Venous imaging reveals recanalized chronic thrombus in the common femoral and superficial femoral vein. Large collateral vein noted anterior to the superficial femoral artery. The remainder of the deep venous system is within normal limits. There is no evidence of thrombus in the popliteal or calf veins. The greater saphenous vein is also within normal limits. Doppler indicates normal spontaneous flow within these segments. LEFT LEG: Venous imaging reveals a patent deep venous system. There is no evidence of thrombus within the femoral, popliteal or tibial segments. The greater saphenous vein is also within normal limits. Doppler indicates normal spontaneous flow within these segments. There is no evidence of acute deep vein thrombosis.
[2018-12-22] VITALS (24 sets, daily range): BP systolic 90–134; BP diastolic 42–75
[2018-12-22] MEDS: NovoLOG Insulin Flexpen SUBQ SCH ×5 (00:10→23:32)
--- NOTE | 2018-12-22 00:19 | Surgery Progress Note ---
Surgery Progress Note Subjective Additional Comments late entry as patient seen earlier today Objective Last 24 Hour Vital Signs Date Time Temp Pulse Resp B/P (MAP) Pulse Ox O2 Delivery O2 Flow Rate FiO2 12/21/18 22:40 73 20 40 12/21/18 22:00 68 15 97/42 (60) 100 12/21/18 21:06 74 18 40 12/21/18 21:00 74 20 97/41 (59) 99 12/21/18 20:00 73 12/21/18 20:00 40 12/21/18 20:00 98.6 73 17 92/35 (54) 99 12/21/18 20:00 Mechanical Ventilator 12/21/18 19:30 70 20 94/42 100 Mechanical Ventilator 60 12/21/18 19:00 71 19 97/43 100 Mechanical Ventilator 60 12/21/18 18:47 76 21 40 12/21/18 18:30 71 19 92/55 100 Mechanical Ventilator 60 12/21/18 18:00 74 20 94/48 99 Mechanical Ventilator 60 12/21/18 17:30 72 19 91/50 96 Mechanical Ventilator 60 12/21/18 17:00 71 17 101/43 100 Mechanical Ventilator 60 12/21/18 16:55 72 17 40 12/21/18 16:30 98.4 73 18 102/54 100 Mechanical Ventilator 60 12/21/18 16:00 73 17 106/48 100 Mechanical Ventilator 60 12/21/18 16:00 Mechanical Ventilator 12/21/18 16:00 40 12/21/18 16:00 70 12/21/18 15:30 69 15 93/44 100 Mechanical Ventilator 60 12/21/18 15:00 67 15 93/41 100 Mechanical Ventilator 60 12/21/18 14:46 69 15 40 12/21/18 14:30 67 15 94/44 100 Mechanical Ventilator 60 12/21/18 14:00 72 15 108/46 100 Mechanical Ventilator 60 12/21/18 13:30 73 15 107/38 100 Mechanical Ventilator 60 12/21/18 13:00 71 16 102/49 100 Mechanical Ventilator 60 12/21/18 12:42 77 20 50 12/21/18 12:30 71 16 105/42 100 Mechanical Ventilator 60 12/21/18 12:00 98.4 71 16 98/40 100 Mechanical Ventilator 60 12/21/18 12:00 Mechanical Ventilator 6/20/19 12:00 60 6/20/19 12:00 70 6/20/19 11:30 72 16 100/35 100 Mechanical Ventilator 60 6/20/19 11:00 73 17 102/36 100 Mechanical Ventilator 60 6/20/19 10:32 72 20 50 6/20/19 10:30 72 18 102/41 100 Mechanical Ventilator 60 6/20/19 10:00 72 16 105/35 100 Mechanical Ventilator 60 6/20/19 09:30 72 18 95/32 100 Mechanical Ventilator 60 6/20/19 09:24 50 6/20/19 09:10 71 20 60 6/20/19 09:00 98.8 73 21 94/40 100 Mechanical Ventilator 60 6/20/19 08:30 66 15 97/29 100 Mechanical Ventilator 60 6/20/19 08:00 66 6/20/19 08:00 60 6/20/19 08:00 67 18 101/39 100 Mechanical Ventilator 60 6/20/19 08:00 Mechanical Ventilator 6/20/ 07:30 65 15 105/38 100 Mechanical Ventilator 60 6/20/19 07:00 65 20 105/45 100 Mechanical Ventilator 60 6/20/19 06:45 69 18 60 6/20/19 06:30 76 19 101/42 100 Mechanical Ventilator 60 6/20/19 06:00 70 18 105/44 100 Mechanical Ventilator 60 6/20/19 05:30 76 18 108/50 100 Mechanical Ventilator 60 6/20/19 05:05 70 20 75 6/20/19 05:00 75 19 113/48 100 Mechanical Ventilator 60 6/20/19 04:00 99.6 75 22 112/56 100 Mechanical Ventilator 75 6/20/19 04:00 Mechanical Ventilator 6/20/19 04:00 80 6/20/19 04:00 60 6/20/19 03:00 79 20 114/63 100 Mechanical Ventilator 75 6/20/19 02:56 77 21 75 6/20/19 02:30 85 18 116/76 100 Mechanical Ventilator 75 6/20/19 02:00 78 18 103/56 100 Mechanical Ventilator 75 6/20/19 01:30 82 20 103/54 100 Mechanical Ventilator 75 6/20/19 01:05 78 17 75 6/20/19 01:00 78 16 124/45 100 Mechanical Ventilator 75 6/20/19 00:30 81 16 99/65 100 Mechanical Ventilator 75 I&O Intake and Output 12/21/18 12/22/18 19:00 07:00 Intake Total 2678.248 ml 230 ml Output Total 470 ml 300 ml Balance 2208.248 ml -70 ml Intake Free Water 300 ml IV Total 2368.248 ml 200 ml Tube Feeding 10 ml 30 ml Output Urine Total 470 ml 300 ml Dressing: saturated Wound: clean, other Drains: other Cardiovascular: RSR Respiratory: clear, decreased breath sounds Abdomen: soft, present bowel sounds, non-distended Extremities: no cyanosis Laboratory Tests Test 12/21/18 04:00 12/21/18 05:00 12/21/18 09:05 12/21/18 11:00 Stool Occult Blood Positive (NEGATIVE) White Blood Count 23.5 K/UL (4.8-10.8) #*H 21.1 K/UL (4.8-10.8) H Red Blood Count 3.38 M/UL (4.20-5.40) L 3.14 M/UL (4.20-5.40) L Hemoglobin 9.3 G/DL (12.0-16.0) L 8.6 G/DL (12.0-16.0) L Hematocrit 29.0 % (37.0-47.0) L 26.5 % (37.0-47.0) L Mean Corpuscular Volume 86 FL (80-99) 84 FL (80-99) Mean Corpuscular Hemoglobin 27.5 PG (27.0-31.0) 27.4 PG (27.0-31.0) Mean Corpuscular Hemoglobin Concent 32.1 G/DL (32.0-36.0) 32.4 G/DL (32.0-36.0) Red Cell Distribution Width 15.1 % (11.6-14.8) H 15.2 % (11.6-14.8) H Platelet Count 210 K/UL (150-450) 193 K/UL (150-450) Mean Platelet Volume 7.7 FL (6.5-10.1) 7.8 FL (6.5-10.1) Neutrophils (%) (Auto) % (45.0-75.0) % (45.0-75.0) Lymphocytes (%) (Auto) % (20.0-45.0) % (20.0-45.0) Monocytes (%) (Auto) % (1.0-10.0) % (1.0-10.0) Eosinophils (%) (Auto) % (0.0-3.0) % (0.0-3.0) Basophils (%) (Auto) % (0.0-2.0) % (0.0-2.0) Differential Total Cells Counted 100 100 Neutrophils % (Manual) 77 % (45-75) H 77 % (45-75) H Lymphocytes % (Manual) 18 % (20-45) L 14 % (20-45) L Monocytes % (Manual) 2 % (1-10) 2 % (1-10) Eosinophils % (Manual) 0 % (0-3) 1 % (0-3) Basophils % (Manual) 0 % (0-2) 0 % (0-2) Band Neutrophils 3 % (0-8) 6 % (0-8) Platelet Estimate Adequate Adequate Platelet Morphology Normal Normal Hypochromasia 2+ 2+ Anisocytosis 1+ 1+ Sodium Level 151 MMOL/L (136-145) #H Potassium Level 3.1 MMOL/L (3.5-5.1) L Chloride Level 114 MMOL/L (98-107) H Carbon Dioxide Level 24 MMOL/L (21-32) Anion Gap 13 mmol/L (5-15) Blood Urea Nitrogen 81 mg/dL (7-18) H Creatinine 1.8 MG/DL (0.55-1.30) H Estimat Glomerular Filtration Rate mL/min (>60) Glucose Level 114 MG/DL (74-106) #H Uric Acid 6.4 MG/DL (2.6-7.2) Calcium Level 7.7 MG/DL (8.5-10.1) L Phosphorus Level 2.6 MG/DL (2.5-4.9) Magnesium Level 1.6 MG/DL (1.8-2.4) L Total Bilirubin 0.3 MG/DL (0.2-1.0) Aspartate Amino Transf (AST/SGOT) 22 U/L (15-37) Alanine Aminotransferase (ALT/SGPT) 21 U/L (12-78) Alkaline Phosphatase 62 U/L (46-116) Troponin I 0.105 ng/mL (0.000-0.056) C-Reactive Protein, Quantitative 39.1 mg/dL (0.00-0.90) H Pro-B-Type Natriuretic Peptide 4891 pg/mL (0-125) H Total Protein 7.0 G/DL (6.4-8.2) Albumin 1.7 G/DL (3.4-5.0) L Globulin 5.3 g/dL Albumin/Globulin Ratio 0.3 (1.0-2.7) L Random Vancomycin Level 14.4 ug/mL Arterial Blood pH 7.403 (7.350-7.450) Arterial Blood Partial Pressure CO2 36.8 mmHg (35.0-45.0) Arterial Blood Partial Pressure O2 139.6 mmHg (75.0-100.0) H Arterial Blood HCO3 22.4 mmol/L (22.0-26.0) Arterial Blood Oxygen Saturation 98.1 % (95-100) Arterial Blood Base Excess -2.0 (-2-2) Brock Test Positive Spherocytes 1+ Urine Color Pale yellow Urine Appearance Slightly cloudy Urine pH 5 (4.5-8.0) Urine Specific [place] 1.010 (1.005-1.035) Urine Protein 2+ (NEGATIVE) H Urine Glucose (UA) Negative (NEGATIVE) Urine Ketones Negative (NEGATIVE) Urine Blood 4+ (NEGATIVE) H Urine Nitrite Negative (NEGATIVE) Urine Bilirubin Negative (NEGATIVE) Urine Urobilinogen Normal MG/DL (0.0-1.0) Urine Leukocyte Esterase 3+ (NEGATIVE) H Urine RBC 2-4 /HPF (0 - 2) H Urine WBC 5-10 /HPF (0 - 2) H Urine Squamous Epithelial Cells Few /LPF (NONE/OCC) Urine Bacteria Few /HPF (NONE) Test 12/21/18 15:00 Lactic Acid Level 0.90 mmol/L (0.4-2.0) Plan Problems: (1) Sepsis Assessment & Plan: cont current ICU care and management Cont IV abx trend labs (2) Severe dehydration (3) Anemia, chronic disease (4) HCAP (healthcare-associated pneumonia) (5) Sacral decubitus ulcer, stage IV Assessment & Plan: Pt presented on admission with full thickness Sacral Pressure Injury with undermining. Bone is palpable. Base of has beefy red granulation with scattered small purple areas. No odor noted .Scant serous exudate noted . Edges pink and flat. (L)13cm x (W)14cm x (D)5.6cm,[id number] 4 by 4cm @11o'clock. DTPI noted to lateral R foot. .Base of wound purple and fluctuant in center with surrounding maroon discoloration (L)1.5cm x (W)1cm. Non-blanchable erythema with fluctuance noted to posterior and medial R heel. L heel boggy but blanchable. Tx.Plan: Cleanse Sacral wound with Saline. Loosely pack with Hydrogel Impregnated Kerlix. Cover with ABD pads and secure with Paper Tape or Tegaderm Daily and prn. Apply Cavilon Skin Barrier to R and Heel and lateral R heel. Ciover with Optifoam drsg. Change every 7 days and PRN. Apply Cavilon Skin Barrier to L heel. Cover with Optifoam drsg. Change every 7 days and prn. APM/VIJI Mattress Overlay. Reposition at least every 2hours or as tolerated. Off-load heels with Pillow. (6) Hyperglycemia due to type 2 diabetes mellitus (7) Acute metabolic encephalopathy (8) Hypotension (9) ARF (acute renal failure) (10) Respiratory failure with hypoxia Mauro Morrow Dec 22, 2018 00:19
[2018-12-22] MEDS: Meropenem 1 GM in NS 55 ML IVPB SCH ×2 (00:46→13:10)
[2018-12-22 05:39] LABS: BASOPHILS % (AUTO) 0.4 % (0.0-2.0); EOSINOPHILS % (AUTO) 1.2 % (0.0-3.0); HEMATOCRIT 26.8 % (37.0-47.0); HEMOGLOBIN 8.9 G/DL (12.0-16.0); LYMPHOCYTES % (AUTO) 18.9 % (20.0-45.0); MEAN CORPUSCULAR VOLUME 84 FL (80-99); MONOCYTES % (AUTO) 1.2 % (1.0-10.0); NEUTROPHILS % (AUTO) 78.3 % (45.0-75.0); PLATELET COUNT 197 K/UL (150-450); RED CELL DISTRIBUTION WIDTH 15.4 % (11.6-14.8); WHITE BLOOD COUNT 17.4 K/UL (4.8-10.8)
[2018-12-22 06:03] LABS: ALANINE AMINOTRANSFERASE 14 U/L (12-78); ALBUMIN 1.4 G/DL (3.4-5.0); ALBUMIN/GLOBULIN RATIO 0.3 (1.0-2.7); ALKALINE PHOSPHATASE 62 U/L (46-116); ANION GAP 12 mmol/L (5-15); ASPARTATE AMINO TRANSFERASE 20 U/L (15-37); BILIRUBIN,TOTAL 0.2 MG/DL (0.2-1.0); BLOOD UREA NITROGEN 52 mg/dL (7-18); CALCIUM 7.6 MG/DL (8.5-10.1); CARBON DIOXIDE 22 MMOL/L (21-32); CHLORIDE 109 MMOL/L (98-107); CREATININE 1.7 MG/DL (0.55-1.30); POTASSIUM 3.3 MMOL/L (3.5-5.1); SODIUM 143 MMOL/L (136-145)
[2018-12-22 06:30] LABS: PHOSPHORUS 3.7 MG/DL (2.5-4.9)
--- NOTE | 2018-12-22 07:01 | General Progress Note ---
Assessment/Plan Problem List: (1) Sepsis ICD Codes: A41.9 - Sepsis, unspecified organism SNOMED: 99840959, 718652547 Qualifiers: Qualified Codes: A41.9 - Sepsis, unspecified organism (2) HCAP (healthcare-associated pneumonia) ICD Codes: J18.9 - Pneumonia, unspecified organism SNOMED: 898954177, 657503954 (3) Sacral decubitus ulcer, stage IV ICD Codes: L89.154 - Pressure ulcer of sacral region, stage 4 SNOMED: 072271442, 184540273 (4) Hyperglycemia due to type 2 diabetes mellitus ICD Codes: E11.65 - Type 2 diabetes mellitus with hyperglycemia SNOMED: 020127933508404, 62200377 Qualifiers: Qualified Codes: E11.65 - Type 2 diabetes mellitus with hyperglycemia; Z79.4 - shelter (current) use of insulin (5) Acute metabolic encephalopathy ICD Codes: G93.41 - Metabolic encephalopathy SNOMED: 27391979, 101993219 (6) ARF (acute renal failure) ICD Codes: N17.9 - Acute kidney failure, unspecified SNOMED: 34248184, 139871812 Qualifiers: Qualified Codes: N17.9 - Acute kidney failure, unspecified (7) Respiratory failure with hypoxia ICD Codes: J96.91 - Respiratory failure, unspecified with hypoxia SNOMED: 72086813273211625, 145730193 Qualifiers: Qualified Codes: J96.01 - Acute respiratory failure with hypoxia Status: stable Assessment/Plan: continue Levemir 15 units bid continue NISS every 6 hours Subjective Allergies: Coded Allergies: ALLOPURINOL (Verified Allergy, Unknown, 12/20/18) All Systems: reviewed and negative except above Subjective events noted Item Value Date Time Bedside Blood Glucose 145 mg/dl H 12/22/18 0612 Bedside Blood Glucose 179 mg/dl H 12/22/18 0010 Bedside Blood Glucose 181 mg/dl H 12/21/18 1838 Bedside Blood Glucose 146 mg/dl H 12/21/18 1231 Bedside Blood Glucose 139 mg/dl H 12/21/18 0902 Bedside Blood Glucose 139 mg/dl H 12/21/18 0530 Bedside Blood Glucose 179 mg/dl H 12/20/18 2350 Objective Last 24 Hour Vital Signs Date Time Temp Pulse Resp B/P (MAP) Pulse Ox O2 Delivery O2 Flow Rate FiO2 12/22/18 06:00 90 30 107/46 (66) 100 12/22/18 05:00 76 21 109/50 (69) 100 12/22/18 04:55 73 19 40 12/22/18 04:00 97.7 73 20 116/52 (73) 100 12/22/18 04:00 40 12/22/18 04:00 Mechanical Ventilator 12/22/18 04:00 73 12/22/18 03:00 75 20 98/45 (62) 100 12/22/18 02:17 71 17 40 12/22/18 02:00 71 17 97/54 (68) 100 12/22/18 01:06 70 28 40 12/22/18 01:00 67 15 90/42 (58) 100 12/22/18 00:00 Mechanical Ventilator 12/22/18 00:00 66 12/22/18 00:00 40 12/22/18 00:00 97.7 66 16 90/43 (59) 100 12/21/18 23:00 73 16 102/73 (83) 100 12/21/18 22:40 73 20 40 12/21/18 22:00 68 15 97/42 (60) 100 12/21/18 21:06 74 18 40 12/21/18 21:00 74 20 97/41 (59) 99 12/21/18 20:00 73 12/21/18 20:00 40 12/21/18 20:00 98.6 73 17 92/35 (54) 99 12/21/18 20:00 Mechanical Ventilator 12/21/18 19:30 70 20 94/42 100 Mechanical Ventilator 60 12/21/18 19:00 71 19 97/43 100 Mechanical Ventilator 60 12/21/18 18:47 76 21 40 12/21/18 18:30 71 19 92/55 100 Mechanical Ventilator 60 12/21/18 18:00 74 20 94/48 99 Mechanical Ventilator 60 12/21/18 17:30 72 19 91/50 96 Mechanical Ventilator 60 12/21/18 17:00 71 17 101/43 100 Mechanical Ventilator 60 12/21/18 16:55 72 17 40 12/21/18 16:30 98.4 73 18 102/54 100 Mechanical Ventilator 60 12/21/18 16:00 73 17 106/48 100 Mechanical Ventilator 60 12/21/18 16:00 Mechanical Ventilator 12/21/18 16:00 40 12/21/18 16:00 70 12/21/18 15:30 69 15 93/44 100 Mechanical Ventilator 60 12/21/18 15:00 67 15 93/41 100 Mechanical Ventilator 60 12/21/18 14:46 69 15 40 12/21/18 14:30 67 15 94/44 100 Mechanical Ventilator 60 12/21/18 14:00 72 15 108/46 100 Mechanical Ventilator 60 12/21/18 13:30 73 15 107/38 100 Mechanical Ventilator 60 12/21/18 13:00 71 16 102/49 100 Mechanical Ventilator 60 12/21/18 12:42 77 20 50 12/21/18 12:30 71 16 105/42 100 Mechanical Ventilator 60 12/21/18 12:00 98.4 71 16 98/40 100 Mechanical Ventilator 60 12/21/18 12:00 Mechanical Ventilator 12/21/18 12:00 60 12/21/18 12:00 70 12/21/18 11:30 72 16 100/35 100 Mechanical Ventilator 60 12/21/18 11:00 73 17 102/36 100 Mechanical Ventilator 60 12/21/18 10:32 72 20 50 12/21/18 10:30 72 18 102/41 100 Mechanical Ventilator 60 12/21/18 10:00 72 16 105/35 100 Mechanical Ventilator 60 12/21/18 09:30 72 18 95/32 100 Mechanical Ventilator 60 12/21/18 09:24 50 12/21/18 09:10 71 20 60 12/21/18 09:00 98.8 73 21 94/40 100 Mechanical Ventilator 60 12/21/18 08:30 66 15 97/29 100 Mechanical Ventilator 60 12/21/18 08:00 66 12/21/18 08:00 60 12/21/18 08:00 67 18 101/39 100 Mechanical Ventilator 60 12/21/18 08:00 Mechanical Ventilator 12/21/18 07:30 65 15 105/38 100 Mechanical Ventilator 60 12/21/18 07:00 65 20 105/45 100 Mechanical Ventilator 60 Intake and Output 12/21/18 12/22/18 19:00 07:00 Intake Total 2678.248 ml 1465 ml Output Total 470 ml 1400 ml Balance 2208.248 ml 65 ml Intake Free Water 300 ml 200 ml IV Total 2368.248 ml 1055 ml Tube Feeding 10 ml 210 ml Output Urine Total 470 ml 1100 ml Stool Total 300 ml Laboratory Tests 12/21/18 09:05: Arterial Blood pH 7.403, Arterial Blood Partial Pressure CO2 36.8, Arterial Blood Partial Pressure O2 139.6H, Arterial Blood HCO3 22.4, Arterial Blood Oxygen Saturation 98.1, Arterial Blood Base Excess -2.0, Brock Test Positive 12/21/18 11:00: White Blood Count 21.1H, Red Blood Count 3.14L, Hemoglobin 8.6L, Hematocrit 26.5L, Mean Corpuscular Volume 84, Mean Corpuscular Hemoglobin 27.4, Mean Corpuscular Hemoglobin Concent 32.4, Red Cell Distribution Width 15.2H, Platelet Count 193, Mean Platelet Volume 7.8, Neutrophils (%) (Auto) , Lymphocytes (%) (Auto) , Monocytes (%) (Auto) , Eosinophils (%) (Auto) , Basophils (%) (Auto) , Differential Total Cells Counted 100, Neutrophils % ( Manual) 77H, Lymphocytes % (Manual) 14L, Monocytes % (Manual) 2, Eosinophils % ( Manual) 1, Basophils % (Manual) 0, Band Neutrophils 6, Platelet Estimate Adequate, Platelet Morphology Normal, Hypochromasia 2+, Anisocytosis 1+, Spherocytes 1+, Urine Color Pale yellow, Urine Appearance Slightly cloudy, Urine pH 5, Urine Specific [place] 1.010, Urine Protein 2+H, Urine Glucose (UA) Negative, Urine Ketones Negative, Urine Blood 4+H, Urine Nitrite Negative, Urine Bilirubin Negative, Urine Urobilinogen Normal, Urine Leukocyte Esterase 3+ H, Urine RBC 2-4H, Urine WBC 5-10H, Urine Squamous Epithelial Cells Few, Urine Bacteria Few 12/21/18 15:00: Lactic Acid Level 0.90 12/22/18 04:30: White Blood Count 17.4H, Red Blood Count 3.20L, Hemoglobin 8.9L, Hematocrit 26.8L, Mean Corpuscular Volume 84, Mean Corpuscular Hemoglobin 27.7, Mean Corpuscular Hemoglobin Concent 33.0, Red Cell Distribution Width 15.4H, Platelet Count 197, Mean Platelet Volume 8.3, Neutrophils (%) (Auto) 78.3H, Lymphocytes (%) (Auto) 18.9L, Monocytes (%) (Auto) 1.2, Eosinophils (%) (Auto) 1.2, Basophils (%) (Auto) 0.4, Sodium Level 143, Potassium Level 3.3L, Chloride Level 109H, Carbon Dioxide Level 22, Anion Gap 12, Blood Urea Nitrogen 52H, Creatinine 1.7H, Estimat Glomerular Filtration Rate , Glucose Level 125H, Uric Acid 5.3, Calcium Level 7.6L, Phosphorus Level 3.7, Magnesium Level 1.9, Total Bilirubin 0.2, Gamma Glutamyl Transpeptidase 52, Aspartate Amino Transf (AST/ SGOT) 20, Alanine Aminotransferase (ALT/SGPT) 14, Alkaline Phosphatase 62, Ammonia 30, C-Reactive Protein, Quantitative 41.1H, Pro-B-Type Natriuretic Peptide 32299Q, Total Protein 6.7, Albumin 1.4L, Globulin 5.3, Albumin/Globulin Ratio 0.3L, Random Vancomycin Level 17.6 Height (Feet): 5 Height (Inches): 6.00 Weight (Pounds): 200 General Appearance: moderate distress Neck: normal alignment Cardiovascular: normal rate Respiratory/Chest: decreased breath sounds Abdomen: normal bowel sounds Pelvis: normal external exam Objective Current Medications Medications (Trade) Dose Ordered Sig/Nora Route PRN Reason Start Time Stop Time Status Last Admin Dose Admin Acetaminophen (Tylenol) 650 mg Q4H PRN ORAL Mild Pain/Temp > 100.5 12/20/18 06:30 01/19/19 06:29 12/20/18 14:30 Chlorhexidine Gluconate (Valentina-Hex 2%) 1 applic DAILY@2000 TOPIC 12/22/18 20:00 01/21/19 19:59 Dextrose 1,000 ml @ 100 mls/hr Q10H IV 12/21/18 08:30 01/20/19 08:29 12/22/18 04:43 Dextrose (Dextrose 50%) 25 ml Q30M PRN IV Hypoglycemia 12/20/18 19:00 01/19/19 18:59 Dextrose (Dextrose 50%) 50 ml Q30M PRN IV Hypoglycemia 12/20/18 19:00 01/19/19 18:59 Insulin Aspart (NovoLOG) Q6HR SUBQ 12/20/18 12:00 01/19/19 11:59 12/22/18 06:12 Insulin Detemir (Levemir) 15 units BID SUBQ 12/21/18 09:00 01/20/19 08:59 12/21/18 18:37 Lansoprazole (Prevacid) 30 mg BID GT 12/20/18 18:00 01/20/19 08:59 12/21/18 18:00 Meropenem 1 gm/ Sodium Chloride 55 ml @ 110 mls/hr Q12HR@0100,1300 IVPB 12/21/18 13:00 12/26/18 12:59 12/22/18 00:46 Norepinephrine Bitartrate 4 mg/ Dextrose 250 ml @ 0 mls/hr Q24H IV 12/20/18 07:00 01/19/19 06:59 12/20/18 18:25 Vancomycin HCl (Vanco rx to dose) 1 ea DAILY PRN MISC Per rx protocol 12/20/18 11:00 01/19/19 10:59 Vancomycin HCl 1 gm/Dextrose 275 ml @ 183.708 mls/hr ONCE IVPB 12/22/18 09:00 12/22/18 11:00 Pablo Day MD Dec 22, 2018 07:01
[2018-12-22] MEDS: Levemir Flexpen SUBQ SCH ×2 (08:32→17:30)
--- NOTE | 2018-12-22 08:59 | Critical Care Progress Note ---
Assessment/Plan Assessment/Plan Respiratory failure, acute sepsis hypotension sacral ulcer hypernatremia acute renal failure severe protein calorie malnutrition hypoxemia, severe hypercapnia possible pneumonia possible demand ischemia PLAN care noted an reviewed on vent hypoxemia- taper oxygen as able PEEP as needed reduce rate as able monitor acid base antibiotics and cultures noted hydration supportive care try to wean if able ICU care medications/laboratory data/nursing notes/ICU care reviewed in detail note reviewed and edited care discussed with RN and RT ICU time spent 38 minutes Critical Care - Subjective Interval Events: remains ill on vent in ICU d/w RN at bedside ROS Limited/Unobtainable: Yes Condition: critical EKG Rhythm: Sinus Rhythm Residuals: minimal Tube Feeding Tolerated: yes I&O: Intake and Output 12/21/18 12/22/18 19:00 07:00 Intake Total 2678.248 ml 1665 ml Output Total 470 ml 1400 ml Balance 2208.248 ml 265 ml Intake Free Water 300 ml 200 ml IV Total 2368.248 ml 1255 ml Tube Feeding 10 ml 210 ml Output Urine Total 470 ml 1100 ml Stool Total 300 ml Critical Care - Objective ET-Tube: 7.5 ET Position: 23 Last 24 Hour Vital Signs Date Time Temp Pulse Resp B/P (MAP) Pulse Ox O2 Delivery O2 Flow Rate FiO2 12/22/18 08:00 40 12/22/18 08:00 Mechanical Ventilator 12/22/18 08:00 99.4 77 25 103/72 (82) 100 12/22/18 07:01 82 20 107/46 (66) 100 12/22/18 06:45 81 19 40 12/22/18 06:00 90 30 107/46 (66) 100 12/22/18 05:00 76 21 109/50 (69) 100 12/22/18 04:55 73 19 40 12/22/18 04:00 97.7 73 20 116/52 (73) 100 12/22/18 04:00 40 12/22/18 04:00 Mechanical Ventilator 12/22/18 04:00 73 12/22/18 03:00 75 20 98/45 (62) 100 12/22/18 02:17 71 17 40 12/22/18 02:00 71 17 97/54 (68) 100 12/22/18 01:06 70 28 40 12/22/18 01:00 67 15 90/42 (58) 100 12/22/18 00:00 Mechanical Ventilator 12/22/18 00:00 66 12/22/18 00:00 40 12/22/18 00:00 97.7 66 16 90/43 (59) 100 12/21/18 23:00 73 16 102/73 (83) 100 12/21/18 22:40 73 20 40 12/21/18 22:00 68 15 97/42 (60) 100 12/21/18 21:06 74 18 40 12/21/18 21:00 74 20 97/41 (59) 99 12/21/18 20:00 73 12/21/18 20:00 40 12/21/18 20:00 98.6 73 17 92/35 (54) 99 12/21/18 20:00 Mechanical Ventilator 12/21/18 19:30 70 20 94/42 100 Mechanical Ventilator 60 12/21/18 19:00 71 19 97/43 100 Mechanical Ventilator 60 12/21/18 18:47 76 21 40 12/21/18 18:30 71 19 92/55 100 Mechanical Ventilator 60 12/21/18 18:00 74 20 94/48 99 Mechanical Ventilator 60 12/21/18 17:30 72 19 91/50 96 Mechanical Ventilator 60 12/21/18 17:00 71 17 101/43 100 Mechanical Ventilator 60 12/21/18 16:55 72 17 40 12/21/18 16:30 98.4 73 18 102/54 100 Mechanical Ventilator 60 12/21/18 16:00 73 17 106/48 100 Mechanical Ventilator 60 12/21/18 16:00 Mechanical Ventilator 12/21/18 16:00 40 12/21/18 16:00 70 12/21/18 15:30 69 15 93/44 100 Mechanical Ventilator 60 12/21/18 15:00 67 15 93/41 100 Mechanical Ventilator 60 12/21/18 14:46 69 15 40 6 14:30 67 15 94/44 100 Mechanical Ventilator 60 12/21/18 14:00 72 15 108/46 100 Mechanical Ventilator 60 12/21/18 13:30 73 15 107/38 100 Mechanical Ventilator 60 12/21/18 13:00 71 16 102/49 100 Mechanical Ventilator 60 12/21/18 12:42 77 20 50 12/21/18 12:30 71 16 105/42 100 Mechanical Ventilator 60 12/21/18 12:00 98.4 71 16 98/40 100 Mechanical Ventilator 60 12/21/18 12:00 Mechanical Ventilator 12/21/18 12:00 60 12/21/18 12:00 70 12/21/18 11:30 72 16 100/35 100 Mechanical Ventilator 60 12/21/18 11:00 73 17 102/36 100 Mechanical Ventilator 60 12/21/18 10:32 72 20 50 12/21/18 10:30 72 18 102/41 100 Mechanical Ventilator 60 12/21/18 10:00 72 16 105/35 100 Mechanical Ventilator 60 12/21/18 09:30 72 18 95/32 100 Mechanical Ventilator 60 12/21/18 09:24 50 12/21/18 09:10 71 20 60 12/21/18 09:00 98.8 73 21 94/40 100 Mechanical Ventilator 60 Labs: Labs Test 12/20/18 02:10 12/20/18 02:30 12/20/18 03:35 12/20/18 03:54 White Blood Count 19.9 K/UL (4.8-10.8) Red Blood Count 4.28 M/UL (4.20-5.40) Hemoglobin 11.4 G/DL (12.0-16.0) Hematocrit 37.1 % (37.0-47.0) Mean Corpuscular Volume 87 FL (80-99) Mean Corpuscular Hemoglobin 26.7 PG (27.0-31.0) Mean Corpuscular Hemoglobin Concent 30.8 G/DL (32.0-36.0) Red Cell Distribution Width 16.6 % (11.6-14.8) Platelet Count 399 K/UL (150-450) Mean Platelet Volume 7.6 FL (6.5-10.1) Neutrophils (%) (Auto) % (45.0-75.0) Lymphocytes (%) (Auto) % (20.0-45.0) Monocytes (%) (Auto) % (1.0-10.0) Eosinophils (%) (Auto) % (0.0-3.0) Basophils (%) (Auto) % (0.0-2.0) Sodium Level 158 MMOL/L (136-145) Potassium Level 5.4 MMOL/L (3.5-5.1) Chloride Level 112 MMOL/L (98-107) Carbon Dioxide Level 36 MMOL/L (21-32) Anion Gap 11 mmol/L (5-15) Blood Urea Nitrogen 150 mg/dL (7-18) Creatinine 2.8 MG/DL (0.55-1.30) Estimat Glomerular Filtration Rate mL/min (>60) Glucose Level 528 MG/DL (74-106) Lactic Acid Level 3.80 mmol/L (0.4-2.0) 7.50 mmol/L (0.66-2.22) Calcium Level 10.0 MG/DL (8.5-10.1) Total Bilirubin 0.2 MG/DL (0.2-1.0) Aspartate Amino Transf (AST/SGOT) 15 U/L (15-37) Alanine Aminotransferase (ALT/SGPT) 23 U/L (12-78) Alkaline Phosphatase 134 U/L (46-116) Total Creatine Kinase 141 U/L (26-308) Creatine Kinase MB < 0.5 NG/ML (0.0-3.6) Creatine Kinase MB Relative Index 0.3 Troponin I 0.000 ng/mL (0.000-0.056) Total Protein 9.5 G/DL (6.4-8.2) Albumin 2.4 G/DL (3.4-5.0) Globulin 7.1 g/dL Albumin/Globulin Ratio 0.3 (1.0-2.7) Urine Color Pale yellow Urine Appearance Cloudy Urine pH 6 (4.5-8.0) Urine Specific [place] 1.015 (1.005-1.035) Urine Protein 3+ (NEGATIVE) Urine Glucose (UA) 2+ (NEGATIVE) Urine Ketones Negative (NEGATIVE) Urine Blood 5+ (NEGATIVE) Urine Nitrite Negative (NEGATIVE) Urine Bilirubin Negative (NEGATIVE) Urine Urobilinogen Normal MG/DL (0.0-1.0) Urine Leukocyte Esterase 3+ (NEGATIVE) Urine RBC Tntc /HPF (0 - 2) Urine WBC Tntc /HPF (0 - 2) Urine Squamous Epithelial Cells Few /LPF (NONE/OCC) Urine Bacteria Many /HPF (NONE) Arterial Blood pH 7.316 (7.350-7.450) Arterial Blood Partial Pressure CO2 46.1 mmHg (35.0-45.0) Arterial Blood Partial Pressure O2 73.0 mmHg (75.0-100.0) Arterial Blood HCO3 23.0 mmol/L (22.0-26.0) Arterial Blood Oxygen Saturation 92.0 % (95-100) Arterial Blood Base Excess -3.1 (-2-2) Brock Test Positive Test 12/20/18 07:00 12/20/18 08:00 12/20/18 13:05 12/20/18 13:15 Sodium Level 161 MMOL/L (136-145) Potassium Level 3.5 MMOL/L (3.5-5.1) Chloride Level 126 MMOL/L (98-107) Carbon Dioxide Level 27 MMOL/L (21-32) Anion Gap 9 mmol/L (5-15) Blood Urea Nitrogen 121 mg/dL (7-18) Creatinine 2.1 MG/DL (0.55-1.30) Estimat Glomerular Filtration Rate mL/min (>60) Glucose Level 386 MG/DL (74-106) Lactic Acid Level 2.40 mmol/L (0.4-2.0) 3.80 mmol/L (0.4-2.0) Uric Acid 8.3 MG/DL (2.6-7.2) Calcium Level 7.9 MG/DL (8.5-10.1) Phosphorus Level 3.3 MG/DL (2.5-4.9) Magnesium Level 1.7 MG/DL (1.8-2.4) Iron Level 17 ug/dL (50-175) Total Iron Binding Capacity 144 ug/dL (250-450) Percent Iron Saturation 12 % (15-50) Unsaturated Iron Binding 127 ug/dL (112-346) Ferritin 367 NG/ML (8-388) Total Bilirubin 0.2 MG/DL (0.2-1.0) Gamma Glutamyl Transpeptidase 80 U/L (5-85) Aspartate Amino Transf (AST/SGOT) 18 U/L (15-37) Alanine Aminotransferase (ALT/SGPT) 19 U/L (12-78) Alkaline Phosphatase 89 U/L (46-116) Ammonia 32 umol/L (11-32) Total Creatine Kinase 125 U/L (26-308) Troponin I 0.135 ng/mL (0.000-0.056) 0.175 ng/mL (0.000-0.056) C-Reactive Protein, Quantitative 21.5 mg/dL (0.00-0.90) Pro-B-Type Natriuretic Peptide 861 pg/mL (0-125) Total Protein 7.2 G/DL (6.4-8.2) Albumin 1.4 G/DL (3.4-5.0) Globulin 5.8 g/dL Albumin/Globulin Ratio 0.2 (1.0-2.7) Triglycerides Level 121 MG/DL (30-150) Cholesterol Level 95 MG/DL (< 200) LDL Cholesterol 48 mg/dL (<100) HDL Cholesterol 38 MG/DL (40-60) Cholesterol/HDL Ratio 2.5 (3.3-4.4) Vitamin B12 Level 653 PG/ML (193-986) Folate 79.6 NG/ML (8.6-58.9) Thyroid Stimulating Hormone (TSH) 1.246 uiU/mL (0.358-3.740) White Blood Count 14.5 K/UL (4.8-10.8) Red Blood Count 3.05 M/UL (4.20-5.40) Hemoglobin 8.2 G/DL (12.0-16.0) Hematocrit 26.8 % (37.0-47.0) Mean Corpuscular Volume 88 FL (80-99) Mean Corpuscular Hemoglobin 27.0 PG (27.0-31.0) Mean Corpuscular Hemoglobin Concent 30.7 G/DL (32.0-36.0) Red Cell Distribution Width 16.4 % (11.6-14.8) Platelet Count 262 K/UL (150-450) Mean Platelet Volume 7.2 FL (6.5-10.1) Neutrophils (%) (Auto) 82.6 % (45.0-75.0) Lymphocytes (%) (Auto) 15.0 % (20.0-45.0) Monocytes (%) (Auto) 1.8 % (1.0-10.0) Eosinophils (%) (Auto) 0.5 % (0.0-3.0) Basophils (%) (Auto) 0.2 % (0.0-2.0) Hemoglobin A1c 9.5 % (4.3-6.0) Cortisol AM Sample 14.7 UG/DL Test 12/20/18 16:20 12/20/18 20:50 12/20/18 23:27 12/21/18 04:00 Lactic Acid Level 3.70 mmol/L (0.66-2.22) 3.20 mmol/L (0.4-2.0) 3.00 mmol/L (0.66-2.22) Stool Occult Blood Positive (NEGATIVE) Test 12/21/18 05:00 12/21/18 09:05 12/21/18 11:00 12/21/18 15:00 White Blood Count 23.5 K/UL (4.8-10.8) 21.1 K/UL (4.8-10.8) Red Blood Count 3.38 M/UL (4.20-5.40) 3.14 M/UL (4.20-5.40) Hemoglobin 9.3 G/DL (12.0-16.0) 8.6 G/DL (12.0-16.0) Hematocrit 29.0 % (37.0-47.0) 26.5 % (37.0-47.0) Mean Corpuscular Volume 86 FL (80-99) 84 FL (80-99) Mean Corpuscular Hemoglobin 27.5 PG (27.0-31.0) 27.4 PG (27.0-31.0) Mean Corpuscular Hemoglobin Concent 32.1 G/DL (32.0-36.0) 32.4 G/DL (32.0-36.0) Red Cell Distribution Width 15.1 % (11.6-14.8) 15.2 % (11.6-14.8) Platelet Count 210 K/UL (150-450) 193 K/UL (150-450) Mean Platelet Volume 7.7 FL (6.5-10.1) 7.8 FL (6.5-10.1) Neutrophils (%) (Auto) % (45.0-75.0) % (45.0-75.0) Lymphocytes (%) (Auto) % (20.0-45.0) % (20.0-45.0) Monocytes (%) (Auto) % (1.0-10.0) % (1.0-10.0) Eosinophils (%) (Auto) % (0.0-3.0) % (0.0-3.0) Basophils (%) (Auto) % (0.0-2.0) % (0.0-2.0) Differential Total Cells Counted 100 100 Neutrophils % (Manual) 77 % (45-75) 77 % (45-75) Lymphocytes % (Manual) 18 % (20-45) 14 % (20-45) Monocytes % (Manual) 2 % (1-10) 2 % (1-10) Eosinophils % (Manual) 0 % (0-3) 1 % (0-3) Basophils % (Manual) 0 % (0-2) 0 % (0-2) Band Neutrophils 3 % (0-8) 6 % (0-8) Platelet Estimate Adequate Adequate Platelet Morphology Normal Normal Hypochromasia 2+ 2+ Anisocytosis 1+ 1+ Sodium Level 151 MMOL/L (136-145) Potassium Level 3.1 MMOL/L (3.5-5.1) Chloride Level 114 MMOL/L (98-107) Carbon Dioxide Level 24 MMOL/L (21-32) Anion Gap 13 mmol/L (5-15) Blood Urea Nitrogen 81 mg/dL (7-18) Creatinine 1.8 MG/DL (0.55-1.30) Estimat Glomerular Filtration Rate mL/min (>60) Glucose Level 114 MG/DL (74-106) Uric Acid 6.4 MG/DL (2.6-7.2) Calcium Level 7.7 MG/DL (8.5-10.1) Phosphorus Level 2.6 MG/DL (2.5-4.9) Magnesium Level 1.6 MG/DL (1.8-2.4) Total Bilirubin 0.3 MG/DL (0.2-1.0) Aspartate Amino Transf (AST/SGOT) 22 U/L (15-37) Alanine Aminotransferase (ALT/SGPT) 21 U/L (12-78) Alkaline Phosphatase 62 U/L (46-116) Troponin I 0.105 ng/mL (0.000-0.056) C-Reactive Protein, Quantitative 39.1 mg/dL (0.00-0.90) Pro-B-Type Natriuretic Peptide 4891 pg/mL (0-125) Total Protein 7.0 G/DL (6.4-8.2) Albumin 1.7 G/DL (3.4-5.0) Globulin 5.3 g/dL Albumin/Globulin Ratio 0.3 (1.0-2.7) Random Vancomycin Level 14.4 ug/mL Arterial Blood pH 7.403 (7.350-7.450) Arterial Blood Partial Pressure CO2 36.8 mmHg (35.0-45.0) Arterial Blood Partial Pressure O2 139.6 mmHg (75.0-100.0) Arterial Blood HCO3 22.4 mmol/L (22.0-26.0) Arterial Blood Oxygen Saturation 98.1 % (95-100) Arterial Blood Base Excess -2.0 (-2-2) Brock Test Positive Spherocytes 1+ Urine Color Pale yellow Urine Appearance Slightly cloudy Urine pH 5 (4.5-8.0) Urine Specific [place] 1.010 (1.005-1.035) Urine Protein 2+ (NEGATIVE) Urine Glucose (UA) Negative (NEGATIVE) Urine Ketones Negative (NEGATIVE) Urine Blood 4+ (NEGATIVE) Urine Nitrite Negative (NEGATIVE) Urine Bilirubin Negative (NEGATIVE) Urine Urobilinogen Normal MG/DL (0.0-1.0) Urine Leukocyte Esterase 3+ (NEGATIVE) Urine RBC 2-4 /HPF (0 - 2) Urine WBC 5-10 /HPF (0 - 2) Urine Squamous Epithelial Cells Few /LPF (NONE/OCC) Urine Bacteria Few /HPF (NONE) Lactic Acid Level 0.90 mmol/L (0.4-2.0) Test 12/22/18 04:30 White Blood Count 17.4 K/UL (4.8-10.8) Red Blood Count 3.20 M/UL (4.20-5.40) Hemoglobin 8.9 G/DL (12.0-16.0) Hematocrit 26.8 % (37.0-47.0) Mean Corpuscular Volume 84 FL (80-99) Mean Corpuscular Hemoglobin 27.7 PG (27.0-31.0) Mean Corpuscular Hemoglobin Concent 33.0 G/DL (32.0-36.0) Red Cell Distribution Width 15.4 % (11.6-14.8) Platelet Count 197 K/UL (150-450) Mean Platelet Volume 8.3 FL (6.5-10.1) Neutrophils (%) (Auto) 78.3 % (45.0-75.0) Lymphocytes (%) (Auto) 18.9 % (20.0-45.0) Monocytes (%) (Auto) 1.2 % (1.0-10.0) Eosinophils (%) (Auto) 1.2 % (0.0-3.0) Basophils (%) (Auto) 0.4 % (0.0-2.0) Sodium Level 143 MMOL/L (136-145) Potassium Level 3.3 MMOL/L (3.5-5.1) Chloride Level 109 MMOL/L (98-107) Carbon Dioxide Level 22 MMOL/L (21-32) Anion Gap 12 mmol/L (5-15) Blood Urea Nitrogen 52 mg/dL (7-18) Creatinine 1.7 MG/DL (0.55-1.30) Estimat Glomerular Filtration Rate mL/min (>60) Glucose Level 125 MG/DL (74-106) Uric Acid 5.3 MG/DL (2.6-7.2) Calcium Level 7.6 MG/DL (8.5-10.1) Phosphorus Level 3.7 MG/DL (2.5-4.9) Magnesium Level 1.9 MG/DL (1.8-2.4) Total Bilirubin 0.2 MG/DL (0.2-1.0) Gamma Glutamyl Transpeptidase 52 U/L (5-85) Aspartate Amino Transf (AST/SGOT) 20 U/L (15-37) Alanine Aminotransferase (ALT/SGPT) 14 U/L (12-78) Alkaline Phosphatase 62 U/L (46-116) Ammonia 30 umol/L (11-32) C-Reactive Protein, Quantitative 41.1 mg/dL (0.00-0.90) Pro-B-Type Natriuretic Peptide 35519 pg/mL (0-125) Total Protein 6.7 G/DL (6.4-8.2) Albumin 1.4 G/DL (3.4-5.0) Globulin 5.3 g/dL Albumin/Globulin Ratio 0.3 (1.0-2.7) Random Vancomycin Level 17.6 ug/mL Objective: Sp02 EP Interpretation: reviewed, normal General Appearance: normal inspection, well appearing, no apparent distress, sedated Head: normocephalic, atraumatic Eyes: bilateral eye normal inspection ENT: oral ETT Neck: normal inspection, full range of motion, supple, no meningismus, carotid 2+ Respiratory: decreased breath sounds, moderate breath sounds with some rhonchi left Cardiovascular #1: regular rhythm, no murmur without MRG; Gastrointestinal: non tender, soft, non-distended, no guarding, no rebound Musculoskeletal: no CCE Neurologic: sedated reviewed and edited Micro: Microbiology Date/Time Source Procedure Growth Status 12/21/18 13:30 Blood Blood Culture - Preliminary Resulted 12/20/18 02:30 Blood Blood Culture - Preliminary NO GROWTH AFTER 24 HOURS Resulted 12/20/18 02:10 Blood Blood Culture - Preliminary NO GROWTH AFTER 24 HOURS Resulted 12/20/18 05:00 Sputum Induced Gram Stain - Final Complete 12/20/18 05:00 Sputum Culture - Final Staphylococcus Aureus - [place] Usual Respiratory [place] Complete 12/20/18 02:30 Urine,Clean Catch Urine Culture - Final Escherichia Coli Complete 12/20/18 04:00 Rectum - Final NO CARBAPENEM-RESISTANT ENTEROBACTERI... Complete 12/20/18 04:00 Rectum VRE Culture - Final Enterococcus Faecalis - Vre Enterococcus Faecium - Vre Complete Accucheck: 145 Juan Flanagan MD Dec 22, 2018 08:59
[2018-12-22] MEDS ORDERED: Vancomycin 1gm/D5W 275ml IVPB SCH ×2 (09:00)
--- NOTE | 2018-12-22 10:07 | Cardiac Electrophysiology PN ---
Assessment/Plan Assessment/Plan 1. Hypotension due to combination of septic shock in view of high lactic acid of 7.5 as well as severe dehydration. The patient has received 5 liters of normal saline. Levophed DCed. Echo EF 50 to 55 percent. Continue D5W at 100 mL an hour under the management of Dr. Cifuentes. 2. Troponin leak due to renal failure. EKG does not show any acute ST-T wave abnormality and shows sinus tachycardia of 102 with only left atrial enlargement. 3. Respiratory failure. On the ventilator. On IV antibiotics.On CPAP today 4. Dysphagia, status post PEG placement. 5. Status post colostomy bag. 6. Severe dehydration with renal failure and hypernatremia. On IV fluids per Dr. Cifuentes. 7. Stage IV sacral decubitus ulcer. 8. Anemia of chronic disease. S/p PRBC . WE[place] RN Subjective Subjective Off pressors in ICU on the vent on CPAP with no arrhythmias overnight Objective Last 24 Hour Vital Signs Date Time Temp Pulse Resp B/P (MAP) Pulse Ox O2 Delivery O2 Flow Rate FiO2 12/22/18 09:37 100 12/22/18 08:35 80 19 40 12/22/18 08:00 40 12/22/18 08:00 Mechanical Ventilator 12/22/18 08:00 99.4 77 25 103/72 (82) 100 12/22/18 07:01 82 20 107/46 (66) 100 12/22/18 06:45 81 19 40 12/22/18 06:00 90 30 107/46 (66) 100 12/22/18 05:00 76 21 109/50 (69) 100 12/22/18 04:55 73 19 40 12/22/18 04:00 97.7 73 20 116/52 (73) 100 12/22/18 04:00 40 12/22/18 04:00 Mechanical Ventilator 12/22/18 04:00 73 12/22/18 03:00 75 20 98/45 (62) 100 12/22/18 02:17 71 17 40 12/22/18 02:00 71 17 97/54 (68) 100 12/22/18 01:06 70 28 40 12/22/18 01:00 67 15 90/42 (58) 100 12/22/18 00:00 Mechanical Ventilator 12/22/18 00:00 66 12/22/18 00:00 40 12/22/18 00:00 97.7 66 16 90/43 (59) 100 6 23:00 73 16 102/73 (83) 100 12/21/18 22:40 73 20 40 6 22:00 68 15 97/42 (60) 100 12/21/18 21:06 74 18 40 6 21:00 74 20 97/41 (59) 99 12/21/18 20:00 73 12/21/18 20:00 40 12/21/18 20:00 98.6 73 17 92/35 (54) 99 12/21/18 20:00 Mechanical Ventilator 12/21/18 19:30 70 20 94/42 100 Mechanical Ventilator 60 12/21/18 19:00 71 19 97/43 100 Mechanical Ventilator 60 12/21/18 18:47 76 21 40 12/21/18 18:30 71 19 92/55 100 Mechanical Ventilator 60 12/21/18 18:00 74 20 94/48 99 Mechanical Ventilator 60 12/21/18 17:30 72 19 91/50 96 Mechanical Ventilator 60 12/21/18 17:00 71 17 101/43 100 Mechanical Ventilator 60 12/21/18 16:55 72 17 40 12/21/18 16:30 98.4 73 18 102/54 100 Mechanical Ventilator 60 12/21/18 16:00 73 17 106/48 100 Mechanical Ventilator 60 12/21/18 16:00 Mechanical Ventilator 12/21/18 16:00 40 12/21/18 16:00 70 12/21/18 15:30 69 15 93/44 100 Mechanical Ventilator 60 12/21/18 15:00 67 15 93/41 100 Mechanical Ventilator 60 12/21/18 14:46 69 15 40 6 14:30 67 15 94/44 100 Mechanical Ventilator 60 12/21/18 14:00 72 15 108/46 100 Mechanical Ventilator 60 12/21/18 13:30 73 15 107/38 100 Mechanical Ventilator 60 12/21/18 13:00 71 16 102/49 100 Mechanical Ventilator 60 12/21/18 12:42 77 20 50 6 12:30 71 16 105/42 100 Mechanical Ventilator 60 12/21/18 12:00 98.4 71 16 98/40 100 Mechanical Ventilator 60 12/21/18 12:00 Mechanical Ventilator 12/21/18 12:00 60 12/21/18 12:00 70 12/21/18 11:30 72 16 100/35 100 Mechanical Ventilator 60 12/21/18 11:00 73 17 102/36 100 Mechanical Ventilator 60 12/21/18 10:32 72 20 50 12/21/18 10:30 72 18 102/41 100 Mechanical Ventilator 60 Intake and Output 12/21/18 12/22/18 19:00 07:00 Intake Total 2678.248 ml 1665 ml Output Total 470 ml 1400 ml Balance 2208.248 ml 265 ml Intake Free Water 300 ml 200 ml IV Total 2368.248 ml 1255 ml Tube Feeding 10 ml 210 ml Output Urine Total 470 ml 1100 ml Stool Total 300 ml Laboratory Tests Test 12/21/18 11:00 12/21/18 15:00 12/22/18 04:30 White Blood Count 21.1 K/UL (4.8-10.8) H 17.4 K/UL (4.8-10.8) H Red Blood Count 3.14 M/UL (4.20-5.40) L 3.20 M/UL (4.20-5.40) L Hemoglobin 8.6 G/DL (12.0-16.0) L 8.9 G/DL (12.0-16.0) L Hematocrit 26.5 % (37.0-47.0) L 26.8 % (37.0-47.0) L Mean Corpuscular Volume 84 FL (80-99) 84 FL (80-99) Mean Corpuscular Hemoglobin 27.4 PG (27.0-31.0) 27.7 PG (27.0-31.0) Mean Corpuscular Hemoglobin Concent 32.4 G/DL (32.0-36.0) 33.0 G/DL (32.0-36.0) Red Cell Distribution Width 15.2 % (11.6-14.8) H 15.4 % (11.6-14.8) H Platelet Count 193 K/UL (150-450) 197 K/UL (150-450) Mean Platelet Volume 7.8 FL (6.5-10.1) 8.3 FL (6.5-10.1) Neutrophils (%) (Auto) % (45.0-75.0) 78.3 % (45.0-75.0) H Lymphocytes (%) (Auto) % (20.0-45.0) 18.9 % (20.0-45.0) L Monocytes (%) (Auto) % (1.0-10.0) 1.2 % (1.0-10.0) Eosinophils (%) (Auto) % (0.0-3.0) 1.2 % (0.0-3.0) Basophils (%) (Auto) % (0.0-2.0) 0.4 % (0.0-2.0) Differential Total Cells Counted 100 Neutrophils % (Manual) 77 % (45-75) H Lymphocytes % (Manual) 14 % (20-45) L Monocytes % (Manual) 2 % (1-10) Eosinophils % (Manual) 1 % (0-3) Basophils % (Manual) 0 % (0-2) Band Neutrophils 6 % (0-8) Platelet Estimate Adequate Platelet Morphology Normal Hypochromasia 2+ Anisocytosis 1+ Spherocytes 1+ Urine Color Pale yellow Urine Appearance Slightly cloudy Urine pH 5 (4.5-8.0) Urine Specific [place] 1.010 (1.005-1.035) Urine Protein 2+ (NEGATIVE) H Urine Glucose (UA) Negative (NEGATIVE) Urine Ketones Negative (NEGATIVE) Urine Blood 4+ (NEGATIVE) H Urine Nitrite Negative (NEGATIVE) Urine Bilirubin Negative (NEGATIVE) Urine Urobilinogen Normal MG/DL (0.0-1.0) Urine Leukocyte Esterase 3+ (NEGATIVE) H Urine RBC 2-4 /HPF (0 - 2) H Urine WBC 5-10 /HPF (0 - 2) H Urine Squamous Epithelial Cells Few /LPF (NONE/OCC) Urine Bacteria Few /HPF (NONE) Lactic Acid Level 0.90 mmol/L (0.4-2.0) Sodium Level 143 MMOL/L (136-145) Potassium Level 3.3 MMOL/L (3.5-5.1) L Chloride Level 109 MMOL/L (98-107) H Carbon Dioxide Level 22 MMOL/L (21-32) Anion Gap 12 mmol/L (5-15) Blood Urea Nitrogen 52 mg/dL (7-18) H Creatinine 1.7 MG/DL (0.55-1.30) H Estimat Glomerular Filtration Rate mL/min (>60) Glucose Level 125 MG/DL (74-106) H Uric Acid 5.3 MG/DL (2.6-7.2) Calcium Level 7.6 MG/DL (8.5-10.1) L Phosphorus Level 3.7 MG/DL (2.5-4.9) Magnesium Level 1.9 MG/DL (1.8-2.4) Total Bilirubin 0.2 MG/DL (0.2-1.0) Gamma Glutamyl Transpeptidase 52 U/L (5-85) Aspartate Amino Transf (AST/SGOT) 20 U/L (15-37) Alanine Aminotransferase (ALT/SGPT) 14 U/L (12-78) Alkaline Phosphatase 62 U/L (46-116) Ammonia 30 umol/L (11-32) C-Reactive Protein, Quantitative 41.1 mg/dL (0.00-0.90) H Pro-B-Type Natriuretic Peptide 61541 pg/mL (0-125) H Total Protein 6.7 G/DL (6.4-8.2) Albumin 1.4 G/DL (3.4-5.0) L Globulin 5.3 g/dL Albumin/Globulin Ratio 0.3 (1.0-2.7) L Random Vancomycin Level 17.6 ug/mL Microbiology Date/Time Source Procedure Growth Status 12/21/18 13:30 Blood Blood Culture - Preliminary Resulted 12/20/18 02:30 Blood Blood Culture - Preliminary NO GROWTH AFTER 24 HOURS Resulted 12/20/18 02:10 Blood Blood Culture - Preliminary NO GROWTH AFTER 24 HOURS Resulted 12/20/18 05:00 Sputum Induced Gram Stain - Final Complete 12/20/18 05:00 Sputum Culture - Final Staphylococcus Aureus - Mrsa Usual Respiratory [place] Complete 12/20/18 04:00 Nasal Nares MRSA Culture - Final Staphylococcus Aureus - Mrsa Complete 12/20/18 02:30 Urine,Clean Catch Urine Culture - Final Escherichia Coli Complete 12/20/18 04:00 Rectum - Final NO CARBAPENEM-RESISTANT ENTEROBACTERI... Complete 12/20/18 04:00 Rectum VRE Culture - Final Enterococcus Faecalis - Vre Enterococcus Faecium - Vre Complete Objective HEAD AND NECK: No JVD. LUNGS: Coarse rhonchi orally intubated. CARDIOVASCULAR:Tachycardic, S1, S2 with no gallop or murmur. ABDOMEN: Soft and nontender. EXTREMITIES: No pitting edema. She has a G-tube and a colostomy bag. Logan Singh MD Dec 22, 2018 10:07
[2018-12-22] MEDS: LORazepam Inj 2mg/ml 1ml IV PRN ×2 (10:10→16:07)
[2018-12-22] MEDS ORDERED: Tubing Blood Filter IV ONE (10:42)
[2018-12-22] MEDS ORDERED: Sterile Water Irrig 1000ml IRRIG ONE (10:42)
[2018-12-22] MEDS ORDERED: NS 275ml ONE (10:42)
--- NOTE | 2018-12-22 11:12 | Infectious Diseases Prog Note ---
Assessment/Plan Assessment/Plan antibiotics : vancomycin iv, meropenem A 1. MRSA pneumonia 2. e.coli UTI 3. shock 4. renal failure improving 5. respiratory failure 6. diabetes mellitus 7. leucocytosis improving P 1. continue iv vancomycin, meropenem 2. will follow up cultures Subjective ROS Limited/Unobtainable: Yes Allergies: Coded Allergies: ALLOPURINOL (Verified Allergy, Unknown, 12/20/18) Objective Vital Signs Last 24 Hour Vital Signs Date Time Temp Pulse Resp B/P (MAP) Pulse Ox O2 Delivery O2 Flow Rate FiO2 12/22/18 10:00 84 32 113/45 (67) 98 12/22/18 09:37 100 12/22/18 09:00 82 26 119/55 (76) 100 12/22/18 08:35 80 19 40 12/22/18 08:00 40 12/22/18 08:00 Mechanical Ventilator 12/22/18 08:00 67 12/22/18 08:00 99.4 77 25 103/72 (82) 100 12/22/18 07:01 82 20 107/46 (66) 100 12/22/18 06:45 81 19 40 12/22/18 06:00 90 30 107/46 (66) 100 12/22/18 05:00 76 21 109/50 (69) 100 12/22/18 04:55 73 19 40 12/22/18 04:00 97.7 73 20 116/52 (73) 100 12/22/18 04:00 40 12/22/18 04:00 Mechanical Ventilator 12/22/18 04:00 73 12/22/18 03:00 75 20 98/45 (62) 100 12/22/18 02:17 71 17 40 12/22/18 02:00 71 17 97/54 (68) 100 12/22/18 01:06 70 28 40 12/22/18 01:00 67 15 90/42 (58) 100 12/22/18 00:00 Mechanical Ventilator 12/22/18 00:00 66 12/22/18 00:00 40 12/22/18 00:00 97.7 66 16 90/43 (59) 100 12/21/18 23:00 73 16 102/73 (83) 100 12/21/18 22:40 73 20 40 12/21/18 22:00 68 15 97/42 (60) 100 21:06 74 18 40 620 21:00 74 20 97/41 (59) 99 12/21/18 20:00 73 6/20 20:00 40 620 20:00 98.6 73 17 92/35 (54) 99 / 20:00 Mechanical Ventilator 12/21/18 19:30 70 20 94/42 100 Mechanical Ventilator 60 6 19:00 71 19 97/43 100 Mechanical Ventilator 60 6 18:47 76 21 40 620 18:30 71 19 92/55 100 Mechanical Ventilator 60 6 18:00 74 20 94/48 99 Mechanical Ventilator 60 12/21/18 17:30 72 19 91/50 96 Mechanical Ventilator 60 12/21/18 17:00 71 17 101/43 100 Mechanical Ventilator 60 12/21/18 16:55 72 17 40 12/21/18 16:30 98.4 73 18 102/54 100 Mechanical Ventilator 60 12/21/18 16:00 73 17 106/48 100 Mechanical Ventilator 60 12/21/18 16:00 Mechanical Ventilator 12/21/18 16:00 40 12/21/18 16:00 70 12/21/18 15:30 69 15 93/44 100 Mechanical Ventilator 60 12/21/18 15:00 67 15 93/41 100 Mechanical Ventilator 60 12/21/18 14:46 69 15 40 12/21/18 14:30 67 15 94/44 100 Mechanical Ventilator 60 12/21/18 14:00 72 15 108/46 100 Mechanical Ventilator 60 12/21/18 13:30 73 15 107/38 100 Mechanical Ventilator 60 12/21/18 13:00 71 16 102/49 100 Mechanical Ventilator 60 12/21/18 12:42 77 20 50 6 12:30 71 16 105/42 100 Mechanical Ventilator 60 12/21/18 12:00 98.4 71 16 98/40 100 Mechanical Ventilator 60 12/21/18 12:00 Mechanical Ventilator 6 12:00 60 6 12:00 70 6 11:30 72 16 100/35 100 Mechanical Ventilator 60 Height (Feet): 5 Height (Inches): 6.00 Weight (Pounds): 200 HEENT: other - intubated Respiratory/Chest: lungs clear Cardiovascular: normal rate, regular rhythm, no gallop/murmur Abdomen: soft, non tender, other - GT, ostomy Extremities: no edema, other - right IJ catheter Microbiology Date/Time Source Procedure Growth Status 12/21/18 13:30 Blood Blood Culture - Preliminary Resulted 12/20/18 02:30 Blood Blood Culture - Preliminary NO GROWTH AFTER 24 HOURS Resulted 12/20/18 02:10 Blood Blood Culture - Preliminary NO GROWTH AFTER 24 HOURS Resulted 12/20/18 05:00 Sputum Induced Gram Stain - Final Complete 12/20/18 05:00 Sputum Culture - Final Staphylococcus Aureus - Mrsa Usual Respiratory [place] Complete 12/20/18 04:00 Nasal Nares MRSA Culture - Final Staphylococcus Aureus - Mrsa Complete 12/20/18 02:30 Urine,Clean Catch Urine Culture - Final Escherichia Coli Complete 12/20/18 04:00 Rectum - Final NO CARBAPENEM-RESISTANT ENTEROBACTERI... Complete 12/20/18 04:00 Rectum VRE Culture - Final Enterococcus Faecalis - Vre Enterococcus Faecium - Vre Complete Laboratory Tests Test 12/21/18 15:00 12/22/18 04:30 Lactic Acid Level 0.90 mmol/L (0.4-2.0) White Blood Count 17.4 K/UL (4.8-10.8) H Red Blood Count 3.20 M/UL (4.20-5.40) L Hemoglobin 8.9 G/DL (12.0-16.0) L Hematocrit 26.8 % (37.0-47.0) L Mean Corpuscular Volume 84 FL (80-99) Mean Corpuscular Hemoglobin 27.7 PG (27.0-31.0) Mean Corpuscular Hemoglobin Concent 33.0 G/DL (32.0-36.0) Red Cell Distribution Width 15.4 % (11.6-14.8) H Platelet Count 197 K/UL (150-450) Mean Platelet Volume 8.3 FL (6.5-10.1) Neutrophils (%) (Auto) 78.3 % (45.0-75.0) H Lymphocytes (%) (Auto) 18.9 % (20.0-45.0) L Monocytes (%) (Auto) 1.2 % (1.0-10.0) Eosinophils (%) (Auto) 1.2 % (0.0-3.0) Basophils (%) (Auto) 0.4 % (0.0-2.0) Sodium Level 143 MMOL/L (136-145) Potassium Level 3.3 MMOL/L (3.5-5.1) L Chloride Level 109 MMOL/L (98-107) H Carbon Dioxide Level 22 MMOL/L (21-32) Anion Gap 12 mmol/L (5-15) Blood Urea Nitrogen 52 mg/dL (7-18) H Creatinine 1.7 MG/DL (0.55-1.30) H Estimat Glomerular Filtration Rate mL/min (>60) Glucose Level 125 MG/DL (74-106) H Uric Acid 5.3 MG/DL (2.6-7.2) Calcium Level 7.6 MG/DL (8.5-10.1) L Phosphorus Level 3.7 MG/DL (2.5-4.9) Magnesium Level 1.9 MG/DL (1.8-2.4) Total Bilirubin 0.2 MG/DL (0.2-1.0) Gamma Glutamyl Transpeptidase 52 U/L (5-85) Aspartate Amino Transf (AST/SGOT) 20 U/L (15-37) Alanine Aminotransferase (ALT/SGPT) 14 U/L (12-78) Alkaline Phosphatase 62 U/L (46-116) Ammonia 30 umol/L (11-32) C-Reactive Protein, Quantitative 41.1 mg/dL (0.00-0.90) H Pro-B-Type Natriuretic Peptide 82673 pg/mL (0-125) H Total Protein 6.7 G/DL (6.4-8.2) Albumin 1.4 G/DL (3.4-5.0) L Globulin 5.3 g/dL Albumin/Globulin Ratio 0.3 (1.0-2.7) L Random Vancomycin Level 17.6 ug/mL Current Medications Medications (Trade) Dose Ordered Sig/Nora Route PRN Reason Start Time Stop Time Status Last Admin Dose Admin Acetaminophen (Tylenol) 650 mg Q4H PRN ORAL Mild Pain/Temp > 100.5 12/20/18 06:30 01/19/19 06:29 12/20/18 14:30 Chlorhexidine Gluconate (Valentina-Hex 2%) 1 applic DAILY@2000 TOPIC 12/22/18 20:00 01/21/19 19:59 Dextrose 1,000 ml @ 100 mls/hr Q10H IV 12/21/18 08:30 01/20/19 08:29 12/22/18 04:43 Dextrose (Dextrose 50%) 25 ml Q30M PRN IV Hypoglycemia 12/20/18 19:00 01/19/19 18:59 Dextrose (Dextrose 50%) 50 ml Q30M PRN IV Hypoglycemia 12/20/18 19:00 01/19/19 18:59 Insulin Aspart (NovoLOG) Q6HR SUBQ 12/20/18 12:00 01/19/19 11:59 12/22/18 06:12 Insulin Detemir (Levemir) 15 units BID SUBQ 12/21/18 09:00 01/20/19 08:59 12/22/18 08:32 Lansoprazole (Prevacid) 30 mg BID GT 12/20/18 18:00 01/20/19 08:59 12/22/18 08:30 Lorazepam (Ativan 2mg/ml 1ml) 1 mg Q3H PRN IV For Anxiety 12/22/18 09:00 12/29/18 08:59 12/22/18 10:10 Meropenem 1 gm/ Sodium Chloride 55 ml @ 110 mls/hr Q12HR@0100,1300 IVPB 12/21/18 13:00 12/26/18 12:59 12/22/18 00:46 Norepinephrine Bitartrate 4 mg/ Dextrose 250 ml @ 0 mls/hr Q24H IV 12/20/18 07:00 01/19/19 06:59 12/20/18 18:25 Vancomycin HCl (Vanco rx to dose) 1 ea DAILY PRN MISC Per rx protocol 12/20/18 11:00 01/19/19 10:59 Trinity Pino MD Dec 22, 2018 11:12
--- NOTE | 2018-12-22 14:34 | Nephrology Progress Note ---
Assessment/Plan Problem List: (1) Renal failure (ARF), acute on chronic (2) Sepsis (3) Severe dehydration (4) Hyperglycemia due to type 2 diabetes mellitus (5) Hypotension (6) Respiratory failure with hypoxia (7) Anemia (8) PEG (percutaneous endoscopic gastrostomy) status (9) Colostomy status Assessment Acute renal failure- Multifactorial, Pre Renal on Renal DM OOC Respiratory failure, acute- on Vent in ICU sepsis / Shock sacral ulcer hypernatremia due to water deficit severe protein calorie malnutrition and hypoalbuminemia hypoxemia, severe PEG COlostomy Severe Anemia underlying Plan fluids- k , Phos , Mag supplement as neede water via GT antibiotics pressors pulm support 1.5 Units PRBCs transfused 12/20 feeding monitor renal parameters Subjective ROS Limited/Unobtainable: Yes Objective Objective Last 24 Hour Vital Signs Date Time Temp Pulse Resp B/P (MAP) Pulse Ox O2 Delivery O2 Flow Rate FiO2 12/22/18 13:59 98.8 12/22/18 13:21 87 22 40 12/22/18 13:00 83 23 132/53 (79) 99 12/22/18 12:00 72 12/22/18 12:00 73 21 111/50 (70) 100 12/22/18 12:00 40 12/22/18 12:00 Mechanical Ventilator 12/22/18 11:00 79 22 101/68 (79) 98 12/22/18 10:50 84 19 40 12/22/18 10:00 84 32 113/45 (67) 98 12/22/18 09:37 100 12/22/18 09:00 82 26 119/55 (76) 100 12/22/18 08:35 80 19 40 12/22/18 08:00 40 12/22/18 08:00 Mechanical Ventilator 12/22/18 08:00 67 12/22/18 08:00 99.4 77 25 103/72 (82) 100 12/22/18 07:01 82 20 107/46 (66) 100 12/22/18 06:45 81 19 40 12/22/18 06:00 90 30 107/46 (66) 100 12/22/18 05:00 76 21 109/50 (69) 100 12/22/18 04:55 73 19 40 12/22/18 04:00 97.7 73 20 116/52 (73) 100 12/22/18 04:00 40 12/22/18 04:00 Mechanical Ventilator 12/22/18 04:00 73 12/22/18 03:00 75 20 98/45 (62) 100 12/22/18 02:17 71 17 40 12/22/18 02:00 71 17 97/54 (68) 100 12/22/18 01:06 70 28 40 12/22/18 01:00 67 15 90/42 (58) 100 12/22/18 00:00 Mechanical Ventilator 12/22/18 00:00 66 12/22/18 00:00 40 12/22/18 00:00 97.7 66 16 90/43 (59) 100 12/21/18 23:00 73 16 102/73 (83) 100 12/21/18 22:40 73 20 40 12/21/18 22:00 68 15 97/42 (60) 100 12/21/18 21:06 74 18 40 12/21/18 21:00 74 20 97/41 (59) 99 12/21/18 20:00 73 12/21/18 20:00 40 12/21/18 20:00 98.6 73 17 92/35 (54) 99 12/21/18 20:00 Mechanical Ventilator 12/21/18 19:30 70 20 94/42 100 Mechanical Ventilator 60 12/21/18 19:00 71 19 97/43 100 Mechanical Ventilator 60 12/21/18 18:47 76 21 40 12/21/18 18:30 71 19 92/55 100 Mechanical Ventilator 60 12/21/18 18:00 74 20 94/48 99 Mechanical Ventilator 60 12/21/18 17:30 72 19 91/50 96 Mechanical Ventilator 60 12/21/18 17:00 71 17 101/43 100 Mechanical Ventilator 60 12/21/18 16:55 72 17 40 12/21/18 16:30 98.4 73 18 102/54 100 Mechanical Ventilator 60 12/21/18 16:00 73 17 106/48 100 Mechanical Ventilator 60 12/21/18 16:00 Mechanical Ventilator 12/21/18 16:00 40 12/21/18 16:00 70 12/21/18 15:30 69 15 93/44 100 Mechanical Ventilator 60 12/21/18 15:00 67 15 93/41 100 Mechanical Ventilator 60 6/20/19 14:46 69 15 40 Intake and Output 12/21/18 12/22/18 19:00 07:00 Intake Total 2678.248 ml 1665 ml Output Total 470 ml 1400 ml Balance 2208.248 ml 265 ml Intake Free Water 300 ml 200 ml IV Total 2368.248 ml 1255 ml Tube Feeding 10 ml 210 ml Output Urine Total 470 ml 1100 ml Stool Total 300 ml Laboratory Tests 12/21/18 15:00: Lactic Acid Level 0.90 12/22/18 04:30: White Blood Count 17.4H, Red Blood Count 3.20L, Hemoglobin 8.9L, Hematocrit 26.8L, Mean Corpuscular Volume 84, Mean Corpuscular Hemoglobin 27.7, Mean Corpuscular Hemoglobin Concent 33.0, Red Cell Distribution Width 15.4H, Platelet Count 197, Mean Platelet Volume 8.3, Neutrophils (%) (Auto) 78.3H, Lymphocytes (%) (Auto) 18.9L, Monocytes (%) (Auto) 1.2, Eosinophils (%) (Auto) 1.2, Basophils (%) (Auto) 0.4, Sodium Level 143, Potassium Level 3.3L, Chloride Level 109H, Carbon Dioxide Level 22, Anion Gap 12, Blood Urea Nitrogen 52H, Creatinine 1.7H, Estimat Glomerular Filtration Rate , Glucose Level 125H, Uric Acid 5.3, Calcium Level 7.6L, Phosphorus Level 3.7, Magnesium Level 1.9, Total Bilirubin 0.2, Gamma Glutamyl Transpeptidase 52, Aspartate Amino Transf (AST/ SGOT) 20, Alanine Aminotransferase (ALT/SGPT) 14, Alkaline Phosphatase 62, Ammonia 30, C-Reactive Protein, Quantitative 41.1H, Pro-B-Type Natriuretic Peptide 34888Z, Total Protein 6.7, Albumin 1.4L, Globulin 5.3, Albumin/Globulin Ratio 0.3L, Random Vancomycin Level 17.6 Height (Feet): 5 Height (Inches): 6.00 Weight (Pounds): 200 EENT: other - vented Cardiovascular: normal rate Respiratory/Chest: decreased breath sounds Abdomen: distended Servando Cifuentes MD Dec 22, 2018 14:34
--- NOTE | 2018-12-22 14:42 | General Progress Note ---
Assessment/Plan Problem List: (1) Colostomy status ICD Codes: Z93.3 - Colostomy status SNOMED: 74123431, 194610540, 086666170 (2) PEG (percutaneous endoscopic gastrostomy) status ICD Codes: Z93.1 - Gastrostomy status SNOMED: 053709000, 460989708 (3) Anemia ICD Codes: D64.9 - Anemia, unspecified SNOMED: 012900391 (4) Respiratory failure with hypoxia ICD Codes: J96.91 - Respiratory failure, unspecified with hypoxia SNOMED: 95171781881836279, 003536150 Qualifiers: Qualified Codes: J96.01 - Acute respiratory failure with hypoxia Status: stable Assessment/Plan: respiratory failure sepsis ARF G Tube dependent colostomy dependent GTF anemia work up OB stool r/o GI bleed pending read monitor H&H, prn transfusions bowel regimen ppi electrolyte correction fu labs GI procedures only if emergent Subjective ROS Limited/Unobtainable: No Allergies: Coded Allergies: ALLOPURINOL (Verified Allergy, Unknown, 12/20/18) Objective Last 24 Hour Vital Signs Date Time Temp Pulse Resp B/P (MAP) Pulse Ox O2 Delivery O2 Flow Rate FiO2 12/22/18 13:59 98.8 12/22/18 13:21 87 22 40 12/22/18 13:00 83 23 132/53 (79) 99 12/22/18 12:00 72 12/22/18 12:00 73 21 111/50 (70) 100 12/22/18 12:00 40 12/22/18 12:00 Mechanical Ventilator 12/22/18 11:00 79 22 101/68 (79) 98 12/22/18 10:50 84 19 40 12/22/18 10:00 84 32 113/45 (67) 98 12/22/18 09:37 100 12/22/18 09:00 82 26 119/55 (76) 100 12/22/18 08:35 80 19 40 12/22/18 08:00 40 12/22/18 08:00 Mechanical Ventilator 12/22/18 08:00 67 12/22/18 08:00 99.4 77 25 103/72 (82) 100 12/22/18 07:01 82 20 107/46 (66) 100 12/22/18 06:45 81 19 40 12/22/18 06:00 90 30 107/46 (66) 100 12/22/18 05:00 76 21 109/50 (69) 100 12/22/18 04:55 73 19 40 12/22/18 04:00 97.7 73 20 116/52 (73) 100 12/22/18 04:00 40 12/22/18 04:00 Mechanical Ventilator 12/22/18 04:00 73 12/22/18 03:00 75 20 98/45 (62) 100 12/22/18 02:17 71 17 40 12/22/18 02:00 71 17 97/54 (68) 100 12/22/18 01:06 70 28 40 12/22/18 01:00 67 15 90/42 (58) 100 12/22/18 00:00 Mechanical Ventilator 12/22/18 00:00 66 12/22/18 00:00 40 12/22/18 00:00 97.7 66 16 90/43 (59) 100 12/21/18 23:00 73 16 102/73 (83) 100 12/21/18 22:40 73 20 40 12/21/18 22:00 68 15 97/42 (60) 100 12/21/18 21:06 74 18 40 12/21/18 21:00 74 20 97/41 (59) 99 12/21/18 20:00 73 12/21/18 20:00 40 12/21/18 20:00 98.6 73 17 92/35 (54) 99 12/21/18 20:00 Mechanical Ventilator 12/21/18 19:30 70 20 94/42 100 Mechanical Ventilator 60 12/21/18 19:00 71 19 97/43 100 Mechanical Ventilator 60 12/21/18 18:47 76 21 40 12/21/18 18:30 71 19 92/55 100 Mechanical Ventilator 60 12/21/18 18:00 74 20 94/48 99 Mechanical Ventilator 60 12/21/18 17:30 72 19 91/50 96 Mechanical Ventilator 60 12/21/18 17:00 71 17 101/43 100 Mechanical Ventilator 60 12/21/18 16:55 72 17 40 12/21/18 16:30 98.4 73 18 102/54 100 Mechanical Ventilator 60 12/21/18 16:00 73 17 106/48 100 Mechanical Ventilator 60 6/20/19 16:00 Mechanical Ventilator 12/21/18 16:00 40 12/21/18 16:00 70 12/21/18 15:30 69 15 93/44 100 Mechanical Ventilator 60 12/21/18 15:00 67 15 93/41 100 Mechanical Ventilator 60 12/21/18 14:46 69 15 40 Intake and Output 12/21/18 12/22/18 19:00 07:00 Intake Total 2678.248 ml 1665 ml Output Total 470 ml 1400 ml Balance 2208.248 ml 265 ml Intake Free Water 300 ml 200 ml IV Total 2368.248 ml 1255 ml Tube Feeding 10 ml 210 ml Output Urine Total 470 ml 1100 ml Stool Total 300 ml Laboratory Tests 12/21/18 15:00: Lactic Acid Level 0.90 12/22/18 04:30: White Blood Count 17.4H, Red Blood Count 3.20L, Hemoglobin 8.9L, Hematocrit 26.8L, Mean Corpuscular Volume 84, Mean Corpuscular Hemoglobin 27.7, Mean Corpuscular Hemoglobin Concent 33.0, Red Cell Distribution Width 15.4H, Platelet Count 197, Mean Platelet Volume 8.3, Neutrophils (%) (Auto) 78.3H, Lymphocytes (%) (Auto) 18.9L, Monocytes (%) (Auto) 1.2, Eosinophils (%) (Auto) 1.2, Basophils (%) (Auto) 0.4, Sodium Level 143, Potassium Level 3.3L, Chloride Level 109H, Carbon Dioxide Level 22, Anion Gap 12, Blood Urea Nitrogen 52H, Creatinine 1.7H, Estimat Glomerular Filtration Rate , Glucose Level 125H, Uric Acid 5.3, Calcium Level 7.6L, Phosphorus Level 3.7, Magnesium Level 1.9, Total Bilirubin 0.2, Gamma Glutamyl Transpeptidase 52, Aspartate Amino Transf (AST/ SGOT) 20, Alanine Aminotransferase (ALT/SGPT) 14, Alkaline Phosphatase 62, Ammonia 30, C-Reactive Protein, Quantitative 41.1H, Pro-B-Type Natriuretic Peptide 50150T, Total Protein 6.7, Albumin 1.4L, Globulin 5.3, Albumin/Globulin Ratio 0.3L, Random Vancomycin Level 17.6 Height (Feet): 5 Height (Inches): 6.00 Weight (Pounds): 200 General Appearance: lethargic EENT: normal ENT inspection Neck: supple Cardiovascular: normal rate Respiratory/Chest: decreased breath sounds Abdomen: normal bowel sounds, non tender, soft Extremities: non-tender Horacio Vora MD Dec 22, 2018 14:42
--- NOTE | 2018-12-22 15:45 | Surgery Progress Note ---
Surgery Progress Note Subjective Additional Comments afebrile, HD leukocytosis trending down on IV abx exam unchanged. anemia in ICU ill appearing Objective Last 24 Hour Vital Signs Date Time Temp Pulse Resp B/P (MAP) Pulse Ox O2 Delivery O2 Flow Rate FiO2 12/22/18 15:00 78 24 116/58 (77) 100 12/22/18 14:00 78 25 122/50 (74) 100 12/22/18 13:59 98.8 12/22/18 13:21 87 22 40 12/22/18 13:00 83 23 132/53 (79) 99 12/22/18 12:00 72 12/22/18 12:00 73 21 111/50 (70) 100 12/22/18 12:00 40 12/22/18 12:00 Mechanical Ventilator 12/22/18 11:00 79 22 101/68 (79) 98 12/22/18 10:50 84 19 40 12/22/18 10:00 84 32 113/45 (67) 98 12/22/18 09:37 100 12/22/18 09:00 82 26 119/55 (76) 100 12/22/18 08:35 80 19 40 12/22/18 08:00 40 12/22/18 08:00 Mechanical Ventilator 12/22/18 08:00 67 12/22/18 08:00 99.4 77 25 103/72 (82) 100 12/22/18 07:01 82 20 107/46 (66) 100 12/22/18 06:45 81 19 40 12/22/18 06:00 90 30 107/46 (66) 100 12/22/18 05:00 76 21 109/50 (69) 100 12/22/18 04:55 73 19 40 12/22/18 04:00 97.7 73 20 116/52 (73) 100 12/22/18 04:00 40 12/22/18 04:00 Mechanical Ventilator 12/22/18 04:00 73 12/22/18 03:00 75 20 98/45 (62) 100 12/22/18 02:17 71 17 40 12/22/18 02:00 71 17 97/54 (68) 100 12/22/18 01:06 70 28 40 12/22/18 01:00 67 15 90/42 (58) 100 12/22/18 00:00 Mechanical Ventilator 12/22/18 00:00 66 12/22/18 00:00 40 12/22/18 00:00 97.7 66 16 90/43 (59) 100 12/21/18 23:00 73 16 102/73 (83) 100 12/21/18 22:40 73 20 40 12/21/18 22:00 68 15 97/42 (60) 100 12/21/18 21:06 74 18 40 12/21/18 21:00 74 20 97/41 (59) 99 12/21/18 20:00 73 12/21/18 20:00 40 12/21/18 20:00 98.6 73 17 92/35 (54) 99 12/21/18 20:00 Mechanical Ventilator 12/21/18 19:30 70 20 94/42 100 Mechanical Ventilator 60 12/21/18 19:00 71 19 97/43 100 Mechanical Ventilator 60 12/21/18 18:47 76 21 40 12/21/18 18:30 71 19 92/55 100 Mechanical Ventilator 60 12/21/18 18:00 74 20 94/48 99 Mechanical Ventilator 60 12/21/18 17:30 72 19 91/50 96 Mechanical Ventilator 60 12/21/18 17:00 71 17 101/43 100 Mechanical Ventilator 60 12/21/18 16:55 72 17 40 12/21/18 16:30 98.4 73 18 102/54 100 Mechanical Ventilator 60 12/21/18 16:00 73 17 106/48 100 Mechanical Ventilator 60 12/21/18 16:00 Mechanical Ventilator 12/21/18 16:00 40 12/21/18 16:00 70 I&O Intake and Output 12/21/18 12/22/18 18:59 06:59 Intake Total 2695.748 ml 1725 ml Output Total 460 ml 1450 ml Balance 2235.748 ml 275 ml Intake Free Water 200 ml 300 ml IV Total 2495.748 ml 1205 ml Tube Feeding 220 ml Output Urine Total 460 ml 1150 ml Stool Total 300 ml Dressing: other Wound: other Drains: other Cardiovascular: RSR Respiratory: decreased breath sounds Abdomen: soft, present bowel sounds, non-distended Extremities: no cyanosis Laboratory Tests Test 12/22/18 04:30 White Blood Count 17.4 K/UL (4.8-10.8) H Red Blood Count 3.20 M/UL (4.20-5.40) L Hemoglobin 8.9 G/DL (12.0-16.0) L Hematocrit 26.8 % (37.0-47.0) L Mean Corpuscular Volume 84 FL (80-99) Mean Corpuscular Hemoglobin 27.7 PG (27.0-31.0) Mean Corpuscular Hemoglobin Concent 33.0 G/DL (32.0-36.0) Red Cell Distribution Width 15.4 % (11.6-14.8) H Platelet Count 197 K/UL (150-450) Mean Platelet Volume 8.3 FL (6.5-10.1) Neutrophils (%) (Auto) 78.3 % (45.0-75.0) H Lymphocytes (%) (Auto) 18.9 % (20.0-45.0) L Monocytes (%) (Auto) 1.2 % (1.0-10.0) Eosinophils (%) (Auto) 1.2 % (0.0-3.0) Basophils (%) (Auto) 0.4 % (0.0-2.0) Sodium Level 143 MMOL/L (136-145) Potassium Level 3.3 MMOL/L (3.5-5.1) L Chloride Level 109 MMOL/L (98-107) H Carbon Dioxide Level 22 MMOL/L (21-32) Anion Gap 12 mmol/L (5-15) Blood Urea Nitrogen 52 mg/dL (7-18) H Creatinine 1.7 MG/DL (0.55-1.30) H Estimat Glomerular Filtration Rate mL/min (>60) Glucose Level 125 MG/DL (74-106) H Uric Acid 5.3 MG/DL (2.6-7.2) Calcium Level 7.6 MG/DL (8.5-10.1) L Phosphorus Level 3.7 MG/DL (2.5-4.9) Magnesium Level 1.9 MG/DL (1.8-2.4) Total Bilirubin 0.2 MG/DL (0.2-1.0) Gamma Glutamyl Transpeptidase 52 U/L (5-85) Aspartate Amino Transf (AST/SGOT) 20 U/L (15-37) Alanine Aminotransferase (ALT/SGPT) 14 U/L (12-78) Alkaline Phosphatase 62 U/L (46-116) Ammonia 30 umol/L (11-32) C-Reactive Protein, Quantitative 41.1 mg/dL (0.00-0.90) H Pro-B-Type Natriuretic Peptide 75583 pg/mL (0-125) H Total Protein 6.7 G/DL (6.4-8.2) Albumin 1.4 G/DL (3.4-5.0) L Globulin 5.3 g/dL Albumin/Globulin Ratio 0.3 (1.0-2.7) L Random Vancomycin Level 17.6 ug/mL Plan Problems: (1) Sepsis Assessment & Plan: cont current ICU care and management Cont IV abx trend labs (2) Severe dehydration (3) Anemia, chronic disease (4) HCAP (healthcare-associated pneumonia) (5) Sacral decubitus ulcer, stage IV Assessment & Plan: Pt presented on admission with full thickness Sacral Pressure Injury with undermining. Bone is palpable. Base of has beefy red granulation with scattered small purple areas. No odor noted .Scant serous exudate noted . Edges pink and flat. (L)13cm x (W)14cm x (D)5.6cm,[id number] 4 by 4cm @11o'clock. DTPI noted to lateral R foot. .Base of wound purple and fluctuant in center with surrounding maroon discoloration (L)1.5cm x (W)1cm. Non-blanchable erythema with fluctuance noted to posterior and medial R heel. L heel boggy but blanchable. Tx.Plan: Cleanse Sacral wound with Saline. Loosely pack with Hydrogel Impregnated Kerlix. Cover with ABD pads and secure with Paper Tape or Tegaderm Daily and prn. Apply Cavilon Skin Barrier to R and Heel and lateral R heel. Ciover with Optifoam drsg. Change every 7 days and PRN. Apply Cavilon Skin Barrier to L heel. Cover with Optifoam drsg. Change every 7 days and prn. APM/VIJI Mattress Overlay. Reposition at least every 2hours or as tolerated. Off-load heels with Pillow. (6) Hyperglycemia due to type 2 diabetes mellitus (7) Acute metabolic encephalopathy (8) Hypotension (9) ARF (acute renal failure) (10) Respiratory failure with hypoxia Mauro Morrow Dec 22, 2018 15:45
[2018-12-22] MEDS: Dyna-Hex 2% Top Sol 2oz TOPIC SCH (19:55)
--- NOTE | 2018-12-22 22:33 | General Progress Note ---
Assessment/Plan Problem List: (1) Anemia, chronic disease ICD Codes: D63.8 - Anemia in other chronic diseases classified elsewhere SNOMED: 765550548, 205586018 (2) Severe dehydration ICD Codes: E86.0 - Dehydration SNOMED: 398201188, 604626017 (3) Hyperglycemia due to type 2 diabetes mellitus ICD Codes: E11.65 - Type 2 diabetes mellitus with hyperglycemia SNOMED: 564781417221984, 52404486 Qualifiers: Qualified Codes: E11.65 - Type 2 diabetes mellitus with hyperglycemia; Z79.4 - care home (current) use of insulin (4) Acute metabolic encephalopathy ICD Codes: G93.41 - Metabolic encephalopathy SNOMED: 79349051, 135385550 (5) Hypotension ICD Codes: I95.9 - Hypotension, unspecified SNOMED: 29736196 (6) ARF (acute renal failure) ICD Codes: N17.9 - Acute kidney failure, unspecified SNOMED: 61057031, 523422874 Qualifiers: Qualified Codes: N17.9 - Acute kidney failure, unspecified (7) Respiratory failure with hypoxia ICD Codes: J96.91 - Respiratory failure, unspecified with hypoxia SNOMED: 89184606729336725, 540595137 Qualifiers: Qualified Codes: J96.01 - Acute respiratory failure with hypoxia (8) Renal failure (ARF), acute on chronic ICD Codes: N17.9 - Acute kidney failure, unspecified; N18.9 - Chronic kidney disease, unspecified SNOMED: 470444518 (9) Anemia ICD Codes: D64.9 - Anemia, unspecified SNOMED: 688311568 Status: stable Assessment/Plan: resp failure intubated pna arf anemia sacral decub abx per id reviewed chart and labs no bleeding no fever Subjective ROS Limited/Unobtainable: Yes Allergies: Coded Allergies: ALLOPURINOL (Verified Allergy, Unknown, 12/20/18) Objective Last 24 Hour Vital Signs Date Time Temp Pulse Resp B/P (MAP) Pulse Ox O2 Delivery O2 Flow Rate FiO2 12/22/18 21:00 88 21 40 12/22/18 20:00 Mechanical Ventilator 12/22/18 20:00 99.2 92 25 125/75 (92) 100 12/22/18 20:00 40 12/22/18 19:40 91 12/22/18 19:14 99 26 40 12/22/18 19:00 88 23 105/53 (70) 94 12/22/18 18:00 85 20 121/63 (82) 99 12/22/18 17:00 89 24 40 12/22/18 17:00 93 25 122/57 (78) 97 12/22/18 16:00 Mechanical Ventilator 12/22/18 16:00 90 25 134/59 (84) 100 12/22/18 16:00 40 12/22/18 16:00 91 12/22/18 15:00 99.5 78 24 116/58 (77) 100 12/22/18 14:50 91 28 40 12/22/18 14:00 78 25 122/50 (74) 100 12/22/18 13:59 98.8 12/22/18 13:21 87 22 40 12/22/18 13:00 83 23 132/53 (79) 99 12/22/18 12:00 72 12/22/18 12:00 100.3 73 21 111/50 (70) 100 12/22/18 12:00 40 12/22/18 12:00 Mechanical Ventilator 12/22/18 11:00 79 22 101/68 (79) 98 12/22/18 10:50 84 19 40 12/22/18 10:00 84 32 113/45 (67) 98 12/22/18 09:37 100 12/22/18 09:00 82 26 119/55 (76) 100 12/22/18 08:35 80 19 40 12/22/18 08:00 40 12/22/18 08:00 Mechanical Ventilator 12/22/18 08:00 67 12/22/18 08:00 99.4 77 25 103/72 (82) 100 12/22/18 07:01 82 20 107/46 (66) 100 12/22/18 06:45 81 19 40 12/22/18 06:00 90 30 107/46 (66) 100 12/22/18 05:00 76 21 109/50 (69) 100 12/22/18 04:55 73 19 40 12/22/18 04:00 97.7 73 20 116/52 (73) 100 12/22/18 04:00 40 12/22/18 04:00 Mechanical Ventilator 12/22/18 04:00 73 12/22/18 03:00 75 20 98/45 (62) 100 12/22/18 02:17 71 17 40 12/22/18 02:00 71 17 97/54 (68) 100 12/22/18 01:06 70 28 40 12/22/18 01:00 67 15 90/42 (58) 100 12/22/18 00:00 Mechanical Ventilator 12/22/18 00:00 66 12/22/18 00:00 40 12/22/18 00:00 97.7 66 16 90/43 (59) 100 12/21/18 23:00 73 16 102/73 (83) 100 12/21/18 22:40 73 20 40 Intake and Output 12/21/18 12/22/18 19:00 07:00 Intake Total 2678.248 ml 1665 ml Output Total 470 ml 1400 ml Balance 2208.248 ml 265 ml Intake Free Water 300 ml 200 ml IV Total 2368.248 ml 1255 ml Tube Feeding 10 ml 210 ml Output Urine Total 470 ml 1100 ml Stool Total 300 ml Laboratory Tests 12/22/18 04:30: White Blood Count 17.4H, Red Blood Count 3.20L, Hemoglobin 8.9L, Hematocrit 26.8L, Mean Corpuscular Volume 84, Mean Corpuscular Hemoglobin 27.7, Mean Corpuscular Hemoglobin Concent 33.0, Red Cell Distribution Width 15.4H, Platelet Count 197, Mean Platelet Volume 8.3, Neutrophils (%) (Auto) 78.3H, Lymphocytes (%) (Auto) 18.9L, Monocytes (%) (Auto) 1.2, Eosinophils (%) (Auto) 1.2, Basophils (%) (Auto) 0.4, Sodium Level 143, Potassium Level 3.3L, Chloride Level 109H, Carbon Dioxide Level 22, Anion Gap 12, Blood Urea Nitrogen 52H, Creatinine 1.7H, Estimat Glomerular Filtration Rate , Glucose Level 125H, Uric Acid 5.3, Calcium Level 7.6L, Phosphorus Level 3.7, Magnesium Level 1.9, Total Bilirubin 0.2, Gamma Glutamyl Transpeptidase 52, Aspartate Amino Transf (AST/ SGOT) 20, Alanine Aminotransferase (ALT/SGPT) 14, Alkaline Phosphatase 62, Ammonia 30, C-Reactive Protein, Quantitative 41.1H, Pro-B-Type Natriuretic Peptide 20357S, Total Protein 6.7, Albumin 1.4L, Globulin 5.3, Albumin/Globulin Ratio 0.3L, Random Vancomycin Level 17.6 Height (Feet): 5 Height (Inches): 6.00 Weight (Pounds): 200 Cardiovascular: normal rate Respiratory/Chest: lungs clear Abdomen: soft Danial Walden MD Dec 22, 2018 22:33
[2018-12-23] VITALS (24 sets, daily range): BP systolic 98–145; BP diastolic 57–90
[2018-12-23] MEDS: Meropenem 1 GM in NS 55 ML IVPB SCH ×2 (00:32→13:41)
[2018-12-23] MEDS: NovoLOG Insulin Flexpen SUBQ SCH ×4 (05:31→23:07)
[2018-12-23 06:04] LABS: BASOPHILS % (AUTO) 0.2 % (0.0-2.0); EOSINOPHILS % (AUTO) 0.7 % (0.0-3.0); HEMATOCRIT 29.1 % (37.0-47.0); HEMOGLOBIN 9.3 G/DL (12.0-16.0); MEAN CORPUSCULAR VOLUME 84 FL (80-99); MONOCYTES % (AUTO) 1.4 % (1.0-10.0); NEUTROPHILS % (AUTO) 80.6 % (45.0-75.0); PLATELET COUNT 219 K/UL (150-450); RED BLOOD COUNT 3.45 M/UL (4.20-5.40); RED CELL DISTRIBUTION WIDTH 15.3 % (11.6-14.8); WHITE BLOOD COUNT 13.7 K/UL (4.8-10.8)
[2018-12-23 06:09] LABS: ALANINE AMINOTRANSFERASE 16 U/L (12-78); ALBUMIN 1.4 G/DL (3.4-5.0); ALBUMIN/GLOBULIN RATIO 0.2 (1.0-2.7); ALKALINE PHOSPHATASE 68 U/L (46-116); ANION GAP 12 mmol/L (5-15); ASPARTATE AMINO TRANSFERASE 15 U/L (15-37); BILIRUBIN,TOTAL 0.2 MG/DL (0.2-1.0); BLOOD UREA NITROGEN 37 mg/dL (7-18); CARBON DIOXIDE 22 MMOL/L (21-32); CHLORIDE 112 MMOL/L (98-107); CREATININE 1.4 MG/DL (0.55-1.30); POTASSIUM 3.6 MMOL/L (3.5-5.1); SODIUM 146 MMOL/L (136-145)
[2018-12-23 06:11] LABS: PHOSPHORUS 2.9 MG/DL (2.5-4.9)
[2018-12-23] MEDS ORDERED: Vancomycin 1gm/D5W 275ml IVPB ONE ×2 (08:00)
[2018-12-23] MEDS: Levemir Flexpen SUBQ SCH ×2 (08:28→18:12)
--- NOTE | 2018-12-23 09:14 | Diagnostic Imaging Report ---
EXAM: XR Chest, 1 View CLINICAL HISTORY: Shortness of breath TECHNIQUE: Frontal view of the chest. COMPARISON: Chest x-ray dated 12/21/18. FINDINGS: Lungs: Stable appearance of prominent perihilar interstitial markings, which may represent mild pulmonary edema versus interstitial pneumonitis. Stable 5 mm calcified granuloma at the periphery of the left upper lung. Pleural space: Unremarkable. The costophrenic angles are sharp. No visible pneumothorax. Heart: Unremarkable. No cardiomegaly. Mediastinum: Unremarkable. Bones/joints: Degenerative changes throughout the visualized spine and shoulder joints. Vasculature: Atherosclerotic calcifications within the aortic arch. Tubes, lines and devices: Telemetry leads overlie the thorax. Endotracheal tube tip approximately 6 cm above the wanda. Right IJ- approach central venous catheter with the tip in the region of the SVC. IMPRESSION: 1. No significant interval changes compared to the prior exam. Stable appearance of prominent perihilar interstitial markings, which may represent mild pulmonary edema versus interstitial pneumonitis.
--- NOTE | 2018-12-23 10:53 | Nephrology Progress Note ---
Assessment/Plan Problem List: (1) Renal failure (ARF), acute on chronic (2) Sepsis (3) Severe dehydration (4) Hyperglycemia due to type 2 diabetes mellitus (5) Hypotension (6) Respiratory failure with hypoxia (7) Anemia (8) PEG (percutaneous endoscopic gastrostomy) status (9) Colostomy status Assessment Acute renal failure- Multifactorial, Pre Renal on Renal DM OOC Respiratory failure, acute- on Vent in ICU sepsis / Shock sacral ulcer hypernatremia due to water deficit severe protein calorie malnutrition and hypoalbuminemia hypoxemia, severe PEG COlostomy Severe Anemia underlying Plan fluids- k , Phos , Mag supplement as neede water via GT antibiotics pressors pulm support 1.5 Units PRBCs transfused 12/20 feeding monitor renal parameters Subjective ROS Limited/Unobtainable: Yes Objective Objective Last 24 Hour Vital Signs Date Time Temp Pulse Resp B/P (MAP) Pulse Ox O2 Delivery O2 Flow Rate FiO2 12/23/18 09:34 100 12/23/18 09:11 76 21 40 12/23/18 08:01 90 26 40 12/23/18 07:00 121/65 12/23/18 06:00 90 26 107/62 (77) 100 12/23/18 05:00 81 25 133/67 (89) 100 12/23/18 04:40 80 24 40 12/23/18 04:00 40 12/23/18 04:00 Mechanical Ventilator 12/23/18 04:00 99.1 81 19 135/75 (95) 100 12/23/18 03:39 79 12/23/18 03:20 78 19 40 12/23/18 03:00 89 23 127/88 (101) 100 12/23/18 02:00 90 24 113/70 (84) 100 12/23/18 01:00 92 24 113/65 (81) 100 12/23/18 01:00 95 26 40 12/23/18 00:00 40 12/23/18 00:00 Mechanical Ventilator 12/23/18 00:00 98.2 92 25 113/77 (89) 100 12/22/18 23:10 93 22 40 12/22/18 23:05 88 12/22/18 23:00 91 23 112/71 (85) 100 12/22/18 22:00 91 23 121/62 (81) 100 12/22/18 21:00 88 21 40 12/22/18 21:00 88 23 124/68 (86) 100 12/22/18 20:00 Mechanical Ventilator 12/22/18 20:00 99.2 92 25 125/75 (92) 100 12/22/18 20:00 40 12/22/18 19:40 91 12/22/18 19:14 99 26 40 12/22/18 19:00 88 23 105/53 (70) 94 12/22/18 18:00 85 20 121/63 (82) 99 12/22/18 17:00 89 24 40 12/22/18 17:00 93 25 122/57 (78) 97 12/22/18 16:00 Mechanical Ventilator 12/22/18 16:00 90 25 134/59 (84) 100 12/22/18 16:00 40 12/22/18 16:00 91 12/22/18 15:00 99.5 78 24 116/58 (77) 100 12/22/18 14:50 91 28 40 12/22/18 14:00 78 25 122/50 (74) 100 12/22/18 13:59 98.8 12/22/18 13:21 87 22 40 12/22/18 13:00 83 23 132/53 (79) 99 12/22/18 12:00 72 12/22/18 12:00 100.3 73 21 111/50 (70) 100 12/22/18 12:00 40 12/22/18 12:00 Mechanical Ventilator 12/22/18 11:00 79 22 101/68 (79) 98 Intake and Output 12/22/18 12/23/18 19:00 07:00 Intake Total 2197.416 ml 1195 ml Output Total 1410 ml 1620 ml Balance 787.416 ml -425 ml Intake Free Water 300 ml 300 ml IV Total 1507.416 ml 535 ml Tube Feeding 390 ml 360 ml Output Urine Total 1010 ml 870 ml Stool Total 400 ml 750 ml # Bowel Movements 2 Laboratory Tests 12/23/18 05:00: White Blood Count 13.7H, Red Blood Count 3.45L, Hemoglobin 9.3L, Hematocrit 29.1L, Mean Corpuscular Volume 84, Mean Corpuscular Hemoglobin 27.0, Mean Corpuscular Hemoglobin Concent 32.1, Red Cell Distribution Width 15.3H, Platelet Count 219, Mean Platelet Volume 8.6, Neutrophils (%) (Auto) 80.6H, Lymphocytes (%) (Auto) 17.0L, Monocytes (%) (Auto) 1.4, Eosinophils (%) (Auto) 0.7, Basophils (%) (Auto) 0.2, Sodium Level 146H, Potassium Level 3.6, Chloride Level 112H, Carbon Dioxide Level 22, Anion Gap 12, Blood Urea Nitrogen 37H, Creatinine 1.4H, Estimat Glomerular Filtration Rate , Glucose Level 190H, Uric Acid 5.2, Calcium Level 8.0L, Phosphorus Level 2.9, Magnesium Level 1.8, Total Bilirubin 0.2, Aspartate Amino Transf (AST/SGOT) 15, Alanine Aminotransferase ( ALT/SGPT) 16, Alkaline Phosphatase 68, Total Protein 7.0, Albumin 1.4L, Globulin 5.6, Albumin/Globulin Ratio 0.2L, Random Vancomycin Level 18.6 12/23/18 09:05: Arterial Blood pH 7.416, Arterial Blood Partial Pressure CO2 32.5L, Arterial Blood Partial Pressure O2 106.7H, Arterial Blood HCO3 20.4L, Arterial Blood Oxygen Saturation 97.7, Arterial Blood Base Excess -3.4L, Brock Test Positive Height (Feet): 5 Height (Inches): 6.00 Weight (Pounds): 198 EENT: other - VENTED Cardiovascular: normal rate, bradycardia - SLIGHT Respiratory/Chest: decreased breath sounds Abdomen: distended Servando Cifuentes MD Dec 23, 2018 10:53
--- NOTE | 2018-12-23 10:57 | Infectious Diseases Prog Note ---
Assessment/Plan Assessment/Plan antibiotics : vancomycin iv, meropenem A 1. MRSA pneumonia 2. e.coli UTI 3. shock 4. renal failure improving 5. respiratory failure 6. diabetes mellitus 7. leucocytosis improving P 1. continue iv vancomycin, meropenem 2. will follow up cultures Subjective ROS Limited/Unobtainable: Yes Allergies: Coded Allergies: ALLOPURINOL (Verified Allergy, Unknown, 12/20/18) Objective Vital Signs Last 24 Hour Vital Signs Date Time Temp Pulse Resp B/P (MAP) Pulse Ox O2 Delivery O2 Flow Rate FiO2 12/23/18 09:34 100 12/23/18 09:11 76 21 40 12/23/18 08:01 90 26 40 12/23/18 07:00 121/65 12/23/18 06:00 90 26 107/62 (77) 100 12/23/18 05:00 81 25 133/67 (89) 100 12/23/18 04:40 80 24 40 12/23/18 04:00 40 12/23/18 04:00 Mechanical Ventilator 12/23/18 04:00 99.1 81 19 135/75 (95) 100 12/23/18 03:39 79 12/23/18 03:20 78 19 40 12/23/18 03:00 89 23 127/88 (101) 100 12/23/18 02:00 90 24 113/70 (84) 100 12/23/18 01:00 92 24 113/65 (81) 100 12/23/18 01:00 95 26 40 12/23/18 00:00 40 12/23/18 00:00 Mechanical Ventilator 12/23/18 00:00 98.2 92 25 113/77 (89) 100 12/22/18 23:10 93 22 40 12/22/18 23:05 88 12/22/18 23:00 91 23 112/71 (85) 100 12/22/18 22:00 91 23 121/62 (81) 100 12/22/18 21:00 88 21 40 12/22/18 21:00 88 23 124/68 (86) 100 12/22/18 20:00 Mechanical Ventilator 12/22/18 20:00 99.2 92 25 125/75 (92) 100 12/22/18 20:00 40 12/22/18 19:40 91 12/22/18 19:14 99 26 40 12/22/18 19:00 88 23 105/53 (70) 94 12/22/18 18:00 85 20 121/63 (82) 99 12/22/18 17:00 89 24 40 12/22/18 17:00 93 25 122/57 (78) 97 12/22/18 16:00 Mechanical Ventilator 12/22/18 16:00 90 25 134/59 (84) 100 12/22/18 16:00 40 12/22/18 16:00 91 12/22/18 15:00 99.5 78 24 116/58 (77) 100 12/22/18 14:50 91 28 40 12/22/18 14:00 78 25 122/50 (74) 100 12/22/18 13:59 98.8 12/22/18 13:21 87 22 40 12/22/18 13:00 83 23 132/53 (79) 99 12/22/18 12:00 72 12/22/18 12:00 100.3 73 21 111/50 (70) 100 12/22/18 12:00 40 12/22/18 12:00 Mechanical Ventilator 12/22/18 11:00 79 22 101/68 (79) 98 Height (Feet): 5 Height (Inches): 6.00 Weight (Pounds): 198 HEENT: other - intubated Respiratory/Chest: lungs clear Cardiovascular: normal rate, regular rhythm, no gallop/murmur Abdomen: soft, non tender, other - GT, ostomy Extremities: no edema, other - right IJ catheter Microbiology Date/Time Source Procedure Growth Status 12/21/18 13:30 Blood Blood Culture - Preliminary Resulted Laboratory Tests Test 12/23/18 05:00 12/23/18 09:05 White Blood Count 13.7 K/UL (4.8-10.8) H Red Blood Count 3.45 M/UL (4.20-5.40) L Hemoglobin 9.3 G/DL (12.0-16.0) L Hematocrit 29.1 % (37.0-47.0) L Mean Corpuscular Volume 84 FL (80-99) Mean Corpuscular Hemoglobin 27.0 PG (27.0-31.0) Mean Corpuscular Hemoglobin Concent 32.1 G/DL (32.0-36.0) Red Cell Distribution Width 15.3 % (11.6-14.8) H Platelet Count 219 K/UL (150-450) Mean Platelet Volume 8.6 FL (6.5-10.1) Neutrophils (%) (Auto) 80.6 % (45.0-75.0) H Lymphocytes (%) (Auto) 17.0 % (20.0-45.0) L Monocytes (%) (Auto) 1.4 % (1.0-10.0) Eosinophils (%) (Auto) 0.7 % (0.0-3.0) Basophils (%) (Auto) 0.2 % (0.0-2.0) Sodium Level 146 MMOL/L (136-145) H Potassium Level 3.6 MMOL/L (3.5-5.1) Chloride Level 112 MMOL/L (98-107) H Carbon Dioxide Level 22 MMOL/L (21-32) Anion Gap 12 mmol/L (5-15) Blood Urea Nitrogen 37 mg/dL (7-18) H Creatinine 1.4 MG/DL (0.55-1.30) H Estimat Glomerular Filtration Rate mL/min (>60) Glucose Level 190 MG/DL (74-106) H Uric Acid 5.2 MG/DL (2.6-7.2) Calcium Level 8.0 MG/DL (8.5-10.1) L Phosphorus Level 2.9 MG/DL (2.5-4.9) Magnesium Level 1.8 MG/DL (1.8-2.4) Total Bilirubin 0.2 MG/DL (0.2-1.0) Aspartate Amino Transf (AST/SGOT) 15 U/L (15-37) Alanine Aminotransferase (ALT/SGPT) 16 U/L (12-78) Alkaline Phosphatase 68 U/L (46-116) Total Protein 7.0 G/DL (6.4-8.2) Albumin 1.4 G/DL (3.4-5.0) L Globulin 5.6 g/dL Albumin/Globulin Ratio 0.2 (1.0-2.7) L Random Vancomycin Level 18.6 ug/mL Arterial Blood pH 7.416 (7.350-7.450) Arterial Blood Partial Pressure CO2 32.5 mmHg (35.0-45.0) L Arterial Blood Partial Pressure O2 106.7 mmHg (75.0-100.0) H Arterial Blood HCO3 20.4 mmol/L (22.0-26.0) L Arterial Blood Oxygen Saturation 97.7 % (95-100) Arterial Blood Base Excess -3.4 (-2-2) L Brock Test Positive Current Medications Medications (Trade) Dose Ordered Sig/Nora Route PRN Reason Start Time Stop Time Status Last Admin Dose Admin Acetaminophen (Tylenol) 650 mg Q4H PRN ORAL Mild Pain/Temp > 100.5 12/20/18 06:30 01/19/19 06:29 12/22/18 13:29 Chlorhexidine Gluconate (Valentina-Hex 2%) 1 applic DAILY@2000 TOPIC 12/22/18 20:00 01/21/19 19:59 12/22/18 19:55 Dextrose 1,000 ml @ 40 mls/hr Q24H IV 12/22/18 14:37 01/21/19 14:36 12/22/18 15:43 Dextrose (Dextrose 50%) 25 ml Q30M PRN IV Hypoglycemia 12/20/18 19:00 01/19/19 18:59 Dextrose (Dextrose 50%) 50 ml Q30M PRN IV Hypoglycemia 12/20/18 19:00 01/19/19 18:59 Insulin Aspart (NovoLOG) Q6HR SUBQ 12/20/18 12:00 01/19/19 11:59 12/23/18 05:31 Insulin Detemir (Levemir) 15 units BID SUBQ 12/21/18 09:00 01/20/19 08:59 12/23/18 08:28 Lansoprazole (Prevacid) 30 mg BID GT 12/20/18 18:00 01/20/19 08:59 12/23/18 08:27 Lorazepam (Ativan 2mg/ml 1ml) 1 mg Q3H PRN IV For Anxiety 12/22/18 09:00 12/29/18 08:59 12/22/18 16:07 Meropenem 1 gm/ Sodium Chloride 55 ml @ 110 mls/hr Q12HR@0100,1300 IVPB 12/21/18 13:00 12/26/18 12:59 12/23/18 00:32 Norepinephrine Bitartrate 4 mg/ Dextrose 250 ml @ 0 mls/hr Q24H IV 12/20/18 07:00 01/19/19 06:59 12/20/18 18:25 Vancomycin HCl (Vanco rx to dose) 1 ea DAILY PRN MISC Per rx protocol 12/20/18 11:00 01/19/19 10:59 Vancomycin HCl 1 gm/Dextrose 275 ml @ 183.708 mls/hr Q24H IVPB 12/24/18 09:00 12/29/18 08:59 Trinity Pino MD Dec 23, 2018 10:57
--- NOTE | 2018-12-23 11:37 | General Progress Note ---
Assessment/Plan Problem List: (1) Sepsis ICD Codes: A41.9 - Sepsis, unspecified organism SNOMED: 98075316, 895478081 Qualifiers: Qualified Codes: A41.9 - Sepsis, unspecified organism (2) HCAP (healthcare-associated pneumonia) ICD Codes: J18.9 - Pneumonia, unspecified organism SNOMED: 303752606, 791616554 (3) Sacral decubitus ulcer, stage IV ICD Codes: L89.154 - Pressure ulcer of sacral region, stage 4 SNOMED: 620841655, 149477098 (4) Hyperglycemia due to type 2 diabetes mellitus ICD Codes: E11.65 - Type 2 diabetes mellitus with hyperglycemia SNOMED: 449216462085670, 01552631 Qualifiers: Qualified Codes: E11.65 - Type 2 diabetes mellitus with hyperglycemia; Z79.4 - care home (current) use of insulin (5) Acute metabolic encephalopathy ICD Codes: G93.41 - Metabolic encephalopathy SNOMED: 03341240, 311305961 (6) ARF (acute renal failure) ICD Codes: N17.9 - Acute kidney failure, unspecified SNOMED: 86042655, 267981589 Qualifiers: Qualified Codes: N17.9 - Acute kidney failure, unspecified (7) Respiratory failure with hypoxia ICD Codes: J96.91 - Respiratory failure, unspecified with hypoxia SNOMED: 59581809676805058, 434108722 Qualifiers: Qualified Codes: J96.01 - Acute respiratory failure with hypoxia Status: stable Assessment/Plan: continue Levemir 15 units bid continue NISS every 6 hours Subjective ROS Limited/Unobtainable: Yes Allergies: Coded Allergies: ALLOPURINOL (Verified Allergy, Unknown, 12/20/18) Subjective events noted Item Value Date Time Bedside Blood Glucose 194 mg/dl H 12/23/18 0828 Bedside Blood Glucose 194 mg/dl H 12/23/18 0531 Bedside Blood Glucose 183 mg/dl H 12/22/18 2332 Bedside Blood Glucose 130 mg/dl H 12/22/18 1800 Bedside Blood Glucose 177 mg/dl H 12/22/18 1311 Bedside Blood Glucose 145 mg/dl H 12/22/18 0832 Objective Last 24 Hour Vital Signs Date Time Temp Pulse Resp B/P (MAP) Pulse Ox O2 Delivery O2 Flow Rate FiO2 12/23/18 11:10 76 21 40 12/23/18 11:00 73 13 109/69 (82) 96 12/23/18 10:00 75 14 98/65 (76) 96 12/23/18 09:34 100 12/23/18 09:11 76 21 40 12/23/18 09:00 83 13 114/90 (98) 96 12/23/18 08:01 90 26 40 12/23/18 08:00 75 14 110/58 (75) 97 12/23/18 07:00 75 13 108/60 (76) 97 12/23/18 07:00 121/65 12/23/18 06:00 90 26 107/62 (77) 100 12/23/18 05:00 81 25 133/67 (89) 100 12/23/18 04:40 80 24 40 12/23/18 04:00 40 12/23/18 04:00 Mechanical Ventilator 12/23/18 04:00 99.1 81 19 135/75 (95) 100 12/23/18 03:39 79 12/23/18 03:20 78 19 40 12/23/18 03:00 89 23 127/88 (101) 100 12/23/18 02:00 90 24 113/70 (84) 100 12/23/18 01:00 92 24 113/65 (81) 100 12/23/18 01:00 95 26 40 12/23/18 00:00 40 12/23/18 00:00 Mechanical Ventilator 12/23/18 00:00 98.2 92 25 113/77 (89) 100 12/22/18 23:10 93 22 40 12/22/18 23:05 88 12/22/18 23:00 91 23 112/71 (85) 100 12/22/18 22:00 91 23 121/62 (81) 100 12/22/18 21:00 88 21 40 12/22/18 21:00 88 23 124/68 (86) 100 12/22/18 20:00 Mechanical Ventilator 12/22/18 20:00 99.2 92 25 125/75 (92) 100 12/22/18 20:00 40 12/22/18 19:40 91 12/22/18 19:14 99 26 40 12/22/18 19:00 88 23 105/53 (70) 94 12/22/18 18:00 85 20 121/63 (82) 99 12/22/18 17:00 89 24 40 12/22/18 17:00 93 25 122/57 (78) 97 12/22/18 16:00 Mechanical Ventilator 12/22/18 16:00 90 25 134/59 (84) 100 12/22/18 16:00 40 12/22/18 16:00 91 12/22/18 15:00 99.5 78 24 116/58 (77) 100 12/22/18 14:50 91 28 40 12/22/18 14:00 78 25 122/50 (74) 100 12/22/18 13:59 98.8 12/22/18 13:21 87 22 40 12/22/18 13:00 83 23 132/53 (79) 99 12/22/18 12:00 72 12/22/18 12:00 100.3 73 21 111/50 (70) 100 12/22/18 12:00 40 12/22/18 12:00 Mechanical Ventilator Intake and Output 12/22/18 12/23/18 19:00 07:00 Intake Total 2197.416 ml 1195 ml Output Total 1410 ml 1620 ml Balance 787.416 ml -425 ml Intake Free Water 300 ml 300 ml IV Total 1507.416 ml 535 ml Tube Feeding 390 ml 360 ml Output Urine Total 1010 ml 870 ml Stool Total 400 ml 750 ml # Bowel Movements 2 Laboratory Tests 12/23/18 05:00: White Blood Count 13.7H, Red Blood Count 3.45L, Hemoglobin 9.3L, Hematocrit 29.1L, Mean Corpuscular Volume 84, Mean Corpuscular Hemoglobin 27.0, Mean Corpuscular Hemoglobin Concent 32.1, Red Cell Distribution Width 15.3H, Platelet Count 219, Mean Platelet Volume 8.6, Neutrophils (%) (Auto) 80.6H, Lymphocytes (%) (Auto) 17.0L, Monocytes (%) (Auto) 1.4, Eosinophils (%) (Auto) 0.7, Basophils (%) (Auto) 0.2, Sodium Level 146H, Potassium Level 3.6, Chloride Level 112H, Carbon Dioxide Level 22, Anion Gap 12, Blood Urea Nitrogen 37H, Creatinine 1.4H, Estimat Glomerular Filtration Rate , Glucose Level 190H, Uric Acid 5.2, Calcium Level 8.0L, Phosphorus Level 2.9, Magnesium Level 1.8, Total Bilirubin 0.2, Aspartate Amino Transf (AST/SGOT) 15, Alanine Aminotransferase ( ALT/SGPT) 16, Alkaline Phosphatase 68, Total Protein 7.0, Albumin 1.4L, Globulin 5.6, Albumin/Globulin Ratio 0.2L, Random Vancomycin Level 18.6 12/23/18 09:05: Arterial Blood pH 7.416, Arterial Blood Partial Pressure CO2 32.5L, Arterial Blood Partial Pressure O2 106.7H, Arterial Blood HCO3 20.4L, Arterial Blood Oxygen Saturation 97.7, Arterial Blood Base Excess -3.4L, Brock Test Positive Height (Feet): 5 Height (Inches): 6.00 Weight (Pounds): 198 General Appearance: moderate distress Neck: normal alignment Cardiovascular: tachycardia Respiratory/Chest: decreased breath sounds Abdomen: normal bowel sounds Objective Current Medications Medications (Trade) Dose Ordered Sig/Nora Route PRN Reason Start Time Stop Time Status Last Admin Dose Admin Acetaminophen (Tylenol) 650 mg Q4H PRN ORAL Mild Pain/Temp > 100.5 12/20/18 06:30 01/19/19 06:29 12/22/18 13:29 Chlorhexidine Gluconate (Valentina-Hex 2%) 1 applic DAILY@2000 TOPIC 12/22/18 20:00 01/21/19 19:59 12/22/18 19:55 Dextrose 1,000 ml @ 40 mls/hr Q24H IV 12/22/18 14:37 01/21/19 14:36 12/22/18 15:43 Dextrose (Dextrose 50%) 25 ml Q30M PRN IV Hypoglycemia 12/20/18 19:00 01/19/19 18:59 Dextrose (Dextrose 50%) 50 ml Q30M PRN IV Hypoglycemia 12/20/18 19:00 01/19/19 18:59 Insulin Aspart (NovoLOG) Q6HR SUBQ 12/20/18 12:00 01/19/19 11:59 12/23/18 05:31 Insulin Detemir (Levemir) 15 units BID SUBQ 12/21/18 09:00 01/20/19 08:59 12/23/18 08:28 Lansoprazole (Prevacid) 30 mg BID GT 12/20/18 18:00 01/20/19 08:59 12/23/18 08:27 Lorazepam (Ativan 2mg/ml 1ml) 1 mg Q3H PRN IV For Anxiety 12/22/18 09:00 12/29/18 08:59 12/22/18 16:07 Meropenem 1 gm/ Sodium Chloride 55 ml @ 110 mls/hr Q12HR@0100,1300 IVPB 12/21/18 13:00 12/26/18 12:59 12/23/18 00:32 Norepinephrine Bitartrate 4 mg/ Dextrose 250 ml @ 0 mls/hr Q24H IV 12/20/18 07:00 01/19/19 06:59 12/20/18 18:25 Vancomycin HCl (Vanco rx to dose) 1 ea DAILY PRN MISC Per rx protocol 12/20/18 11:00 01/19/19 10:59 Vancomycin HCl 1 gm/Dextrose 275 ml @ 183.708 mls/hr Q24H IVPB 12/24/18 09:00 12/29/18 08:59 Pablo Day MD Dec 23, 2018 11:37
--- NOTE | 2018-12-23 11:39 | General Progress Note ---
Assessment/Plan Problem List: (1) Colostomy status ICD Codes: Z93.3 - Colostomy status SNOMED: 43308398, 496884777, 498212642 (2) PEG (percutaneous endoscopic gastrostomy) status ICD Codes: Z93.1 - Gastrostomy status SNOMED: 257474664, 154996509 (3) Anemia ICD Codes: D64.9 - Anemia, unspecified SNOMED: 102706905 (4) Respiratory failure with hypoxia ICD Codes: J96.91 - Respiratory failure, unspecified with hypoxia SNOMED: 77666293861528694, 939749721 Qualifiers: Qualified Codes: J96.01 - Acute respiratory failure with hypoxia Status: stable Assessment/Plan: respiratory failure sepsis ARF G Tube dependent colostomy dependent GTF anemia work up OB stool r/o GI bleed pending read monitor H&H, prn transfusions bowel regimen ppi electrolyte correction fu labs GI procedures only if emergent Subjective ROS Limited/Unobtainable: No Allergies: Coded Allergies: ALLOPURINOL (Verified Allergy, Unknown, 12/20/18) Objective Last 24 Hour Vital Signs Date Time Temp Pulse Resp B/P (MAP) Pulse Ox O2 Delivery O2 Flow Rate FiO2 12/23/18 11:10 76 21 40 12/23/18 11:00 73 13 109/69 (82) 96 12/23/18 10:00 75 14 98/65 (76) 96 12/23/18 09:34 100 12/23/18 09:11 76 21 40 12/23/18 09:00 83 13 114/90 (98) 96 12/23/18 08:01 90 26 40 12/23/18 08:00 75 14 110/58 (75) 97 12/23/18 07:00 75 13 108/60 (76) 97 12/23/18 07:00 121/65 12/23/18 06:00 90 26 107/62 (77) 100 12/23/18 05:00 81 25 133/67 (89) 100 12/23/18 04:40 80 24 40 12/23/18 04:00 40 12/23/18 04:00 Mechanical Ventilator 12/23/18 04:00 99.1 81 19 135/75 (95) 100 12/23/18 03:39 79 12/23/18 03:20 78 19 40 12/23/18 03:00 89 23 127/88 (101) 100 12/23/18 02:00 90 24 113/70 (84) 100 12/23/18 01:00 92 24 113/65 (81) 100 12/23/18 01:00 95 26 40 12/23/18 00:00 40 12/23/18 00:00 Mechanical Ventilator 12/23/18 00:00 98.2 92 25 113/77 (89) 100 12/22/18 23:10 93 22 40 12/22/18 23:05 88 12/22/18 23:00 91 23 112/71 (85) 100 12/22/18 22:00 91 23 121/62 (81) 100 12/22/18 21:00 88 21 40 12/22/18 21:00 88 23 124/68 (86) 100 12/22/18 20:00 Mechanical Ventilator 12/22/18 20:00 99.2 92 25 125/75 (92) 100 12/22/18 20:00 40 12/22/18 19:40 91 12/22/18 19:14 99 26 40 12/22/18 19:00 88 23 105/53 (70) 94 12/22/18 18:00 85 20 121/63 (82) 99 12/22/18 17:00 89 24 40 12/22/18 17:00 93 25 122/57 (78) 97 12/22/18 16:00 Mechanical Ventilator 12/22/18 16:00 90 25 134/59 (84) 100 12/22/18 16:00 40 12/22/18 16:00 91 12/22/18 15:00 99.5 78 24 116/58 (77) 100 12/22/18 14:50 91 28 40 12/22/18 14:00 78 25 122/50 (74) 100 12/22/18 13:59 98.8 12/22/18 13:21 87 22 40 12/22/18 13:00 83 23 132/53 (79) 99 12/22/18 12:00 72 12/22/18 12:00 100.3 73 21 111/50 (70) 100 12/22/18 12:00 40 12/22/18 12:00 Mechanical Ventilator Intake and Output 12/22/18 12/23/18 19:00 07:00 Intake Total 2197.416 ml 1195 ml Output Total 1410 ml 1620 ml Balance 787.416 ml -425 ml Intake Free Water 300 ml 300 ml IV Total 1507.416 ml 535 ml Tube Feeding 390 ml 360 ml Output Urine Total 1010 ml 870 ml Stool Total 400 ml 750 ml # Bowel Movements 2 Laboratory Tests 12/23/18 05:00: White Blood Count 13.7H, Red Blood Count 3.45L, Hemoglobin 9.3L, Hematocrit 29.1L, Mean Corpuscular Volume 84, Mean Corpuscular Hemoglobin 27.0, Mean Corpuscular Hemoglobin Concent 32.1, Red Cell Distribution Width 15.3H, Platelet Count 219, Mean Platelet Volume 8.6, Neutrophils (%) (Auto) 80.6H, Lymphocytes (%) (Auto) 17.0L, Monocytes (%) (Auto) 1.4, Eosinophils (%) (Auto) 0.7, Basophils (%) (Auto) 0.2, Sodium Level 146H, Potassium Level 3.6, Chloride Level 112H, Carbon Dioxide Level 22, Anion Gap 12, Blood Urea Nitrogen 37H, Creatinine 1.4H, Estimat Glomerular Filtration Rate , Glucose Level 190H, Uric Acid 5.2, Calcium Level 8.0L, Phosphorus Level 2.9, Magnesium Level 1.8, Total Bilirubin 0.2, Aspartate Amino Transf (AST/SGOT) 15, Alanine Aminotransferase ( ALT/SGPT) 16, Alkaline Phosphatase 68, Total Protein 7.0, Albumin 1.4L, Globulin 5.6, Albumin/Globulin Ratio 0.2L, Random Vancomycin Level 18.6 12/23/18 09:05: Arterial Blood pH 7.416, Arterial Blood Partial Pressure CO2 32.5L, Arterial Blood Partial Pressure O2 106.7H, Arterial Blood HCO3 20.4L, Arterial Blood Oxygen Saturation 97.7, Arterial Blood Base Excess -3.4L, Brock Test Positive Height (Feet): 5 Height (Inches): 6.00 Weight (Pounds): 198 General Appearance: lethargic EENT: normal ENT inspection Neck: supple Cardiovascular: normal rate Respiratory/Chest: decreased breath sounds Abdomen: normal bowel sounds, non tender, soft Extremities: non-tender Horacio Vora MD Dec 23, 2018 11:39
--- NOTE | 2018-12-23 11:55 | Critical Care Progress Note ---
Assessment/Plan Assessment/Plan Respiratory failure, acute sepsis hypotension sacral ulcer hypernatremia acute renal failure severe protein calorie malnutrition hypoxemia, severe hypercapnia possible pneumonia possible demand ischemia PLAN care noted an reviewed on vent hypoxemia- taper as able PEEP monitor AC rate monitor acid base antibiotics and cultures noted and reviewed hydration with caution supportive care try to wean if able this weekend supportive care ICU care medications/laboratory data/nursing notes/ICU care reviewed in detail note reviewed and edited care discussed with RN and RT ICU time spent 36 minutes Critical Care - Subjective Interval Events: remains critical care noted and reviewed on vent failed wean ROS Limited/Unobtainable: Yes Condition: critical EKG Rhythm: Sinus Rhythm I&O: Intake and Output 12/22/18 12/23/18 19:00 07:00 Intake Total 2197.416 ml 1195 ml Output Total 1410 ml 1620 ml Balance 787.416 ml -425 ml Intake Free Water 300 ml 300 ml IV Total 1507.416 ml 535 ml Tube Feeding 390 ml 360 ml Output Urine Total 1010 ml 870 ml Stool Total 400 ml 750 ml # Bowel Movements 2 Critical Care - Objective ET-Tube: 7.5 ET Position: 23 Last 24 Hour Vital Signs Date Time Temp Pulse Resp B/P (MAP) Pulse Ox O2 Delivery O2 Flow Rate FiO2 12/23/18 11:10 76 21 40 12/23/18 11:00 73 13 109/69 (82) 96 12/23/18 10:00 75 14 98/65 (76) 96 12/23/18 09:34 100 12/23/18 09:11 76 21 40 12/23/18 09:00 83 13 114/90 (98) 96 12/23/18 08:01 90 26 40 12/23/18 08:00 75 14 110/58 (75) 97 12/23/18 07:00 75 13 108/60 (76) 97 12/23/18 07:00 121/65 12/23/18 06:00 90 26 107/62 (77) 100 12/23/18 05:00 81 25 133/67 (89) 100 12/23/18 04:40 80 24 40 12/23/18 04:00 40 12/23/18 04:00 Mechanical Ventilator 12/23/18 04:00 99.1 81 19 135/75 (95) 100 12/23/18 03:39 79 12/23/18 03:20 78 19 40 12/23/18 03:00 89 23 127/88 (101) 100 12/23/18 02:00 90 24 113/70 (84) 100 12/23/18 01:00 92 24 113/65 (81) 100 12/23/18 01:00 95 26 40 12/23/18 00:00 40 12/23/18 00:00 Mechanical Ventilator 12/23/18 00:00 98.2 92 25 113/77 (89) 100 12/22/18 23:10 93 22 40 12/22/18 23:05 88 12/22/18 23:00 91 23 112/71 (85) 100 12/22/18 22:00 91 23 121/62 (81) 100 12/22/18 21:00 88 21 40 12/22/18 21:00 88 23 124/68 (86) 100 12/22/18 20:00 Mechanical Ventilator 12/22/18 20:00 99.2 92 25 125/75 (92) 100 12/22/18 20:00 40 12/22/18 19:40 91 12/22/18 19:14 99 26 40 12/22/18 19:00 88 23 105/53 (70) 94 12/22/18 18:00 85 20 121/63 (82) 99 12/22/18 17:00 89 24 40 12/22/18 17:00 93 25 122/57 (78) 97 12/22/18 16:00 Mechanical Ventilator 12/22/18 16:00 90 25 134/59 (84) 100 12/22/18 16:00 40 12/22/18 16:00 91 12/22/18 15:00 99.5 78 24 116/58 (77) 100 12/22/18 14:50 91 28 40 12/22/18 14:00 78 25 122/50 (74) 100 12/22/18 13:59 98.8 12/22/18 13:21 87 22 40 12/22/18 13:00 83 23 132/53 (79) 99 12/22/18 12:00 72 12/22/18 12:00 100.3 73 21 111/50 (70) 100 12/22/18 12:00 40 12/22/18 12:00 Mechanical Ventilator Labs: Labs Test 12/20/18 13:05 12/20/18 13:15 12/20/18 16:20 12/20/18 20:50 Troponin I 0.175 ng/mL (0.000-0.056) Lactic Acid Level 3.80 mmol/L (0.4-2.0) 3.70 mmol/L (0.66-2.22) 3.20 mmol/L (0.4-2.0) Test 12/20/18 23:27 12/21/18 04:00 12/21/18 05:00 12/21/18 09:05 Lactic Acid Level 3.00 mmol/L (0.66-2.22) Stool Occult Blood Positive (NEGATIVE) White Blood Count 23.5 K/UL (4.8-10.8) Red Blood Count 3.38 M/UL (4.20-5.40) Hemoglobin 9.3 G/DL (12.0-16.0) Hematocrit 29.0 % (37.0-47.0) Mean Corpuscular Volume 86 FL (80-99) Mean Corpuscular Hemoglobin 27.5 PG (27.0-31.0) Mean Corpuscular Hemoglobin Concent 32.1 G/DL (32.0-36.0) Red Cell Distribution Width 15.1 % (11.6-14.8) Platelet Count 210 K/UL (150-450) Mean Platelet Volume 7.7 FL (6.5-10.1) Neutrophils (%) (Auto) % (45.0-75.0) Lymphocytes (%) (Auto) % (20.0-45.0) Monocytes (%) (Auto) % (1.0-10.0) Eosinophils (%) (Auto) % (0.0-3.0) Basophils (%) (Auto) % (0.0-2.0) Differential Total Cells Counted 100 Neutrophils % (Manual) 77 % (45-75) Lymphocytes % (Manual) 18 % (20-45) Monocytes % (Manual) 2 % (1-10) Eosinophils % (Manual) 0 % (0-3) Basophils % (Manual) 0 % (0-2) Band Neutrophils 3 % (0-8) Platelet Estimate Adequate Platelet Morphology Normal Hypochromasia 2+ Anisocytosis 1+ Sodium Level 151 MMOL/L (136-145) Potassium Level 3.1 MMOL/L (3.5-5.1) Chloride Level 114 MMOL/L (98-107) Carbon Dioxide Level 24 MMOL/L (21-32) Anion Gap 13 mmol/L (5-15) Blood Urea Nitrogen 81 mg/dL (7-18) Creatinine 1.8 MG/DL (0.55-1.30) Estimat Glomerular Filtration Rate mL/min (>60) Glucose Level 114 MG/DL (74-106) Uric Acid 6.4 MG/DL (2.6-7.2) Calcium Level 7.7 MG/DL (8.5-10.1) Phosphorus Level 2.6 MG/DL (2.5-4.9) Magnesium Level 1.6 MG/DL (1.8-2.4) Total Bilirubin 0.3 MG/DL (0.2-1.0) Aspartate Amino Transf (AST/SGOT) 22 U/L (15-37) Alanine Aminotransferase (ALT/SGPT) 21 U/L (12-78) Alkaline Phosphatase 62 U/L (46-116) Troponin I 0.105 ng/mL (0.000-0.056) C-Reactive Protein, Quantitative 39.1 mg/dL (0.00-0.90) Pro-B-Type Natriuretic Peptide 4891 pg/mL (0-125) Total Protein 7.0 G/DL (6.4-8.2) Albumin 1.7 G/DL (3.4-5.0) Globulin 5.3 g/dL Albumin/Globulin Ratio 0.3 (1.0-2.7) Random Vancomycin Level 14.4 ug/mL Arterial Blood pH 7.403 (7.350-7.450) Arterial Blood Partial Pressure CO2 36.8 mmHg (35.0-45.0) Arterial Blood Partial Pressure O2 139.6 mmHg (75.0-100.0) Arterial Blood HCO3 22.4 mmol/L (22.0-26.0) Arterial Blood Oxygen Saturation 98.1 % (95-100) Arterial Blood Base Excess -2.0 (-2-2) Brock Test Positive Test 12/21/18 11:00 12/21/18 15:00 12/22/18 04:30 12/23/18 05:00 White Blood Count 21.1 K/UL (4.8-10.8) 17.4 K/UL (4.8-10.8) 13.7 K/UL (4.8-10.8) Red Blood Count 3.14 M/UL (4.20-5.40) 3.20 M/UL (4.20-5.40) 3.45 M/UL (4.20-5.40) Hemoglobin 8.6 G/DL (12.0-16.0) 8.9 G/DL (12.0-16.0) 9.3 G/DL (12.0-16.0) Hematocrit 26.5 % (37.0-47.0) 26.8 % (37.0-47.0) 29.1 % (37.0-47.0) Mean Corpuscular Volume 84 FL (80-99) 84 FL (80-99) 84 FL (80-99) Mean Corpuscular Hemoglobin 27.4 PG (27.0-31.0) 27.7 PG (27.0-31.0) 27.0 PG (27.0-31.0) Mean Corpuscular Hemoglobin Concent 32.4 G/DL (32.0-36.0) 33.0 G/DL (32.0-36.0) 32.1 G/DL (32.0-36.0) Red Cell Distribution Width 15.2 % (11.6-14.8) 15.4 % (11.6-14.8) 15.3 % (11.6-14.8) Platelet Count 193 K/UL (150-450) 197 K/UL (150-450) 219 K/UL (150-450) Mean Platelet Volume 7.8 FL (6.5-10.1) 8.3 FL (6.5-10.1) 8.6 FL (6.5-10.1) Neutrophils (%) (Auto) % (45.0-75.0) 78.3 % (45.0-75.0) 80.6 % (45.0-75.0) Lymphocytes (%) (Auto) % (20.0-45.0) 18.9 % (20.0-45.0) 17.0 % (20.0-45.0) Monocytes (%) (Auto) % (1.0-10.0) 1.2 % (1.0-10.0) 1.4 % (1.0-10.0) Eosinophils (%) (Auto) % (0.0-3.0) 1.2 % (0.0-3.0) 0.7 % (0.0-3.0) Basophils (%) (Auto) % (0.0-2.0) 0.4 % (0.0-2.0) 0.2 % (0.0-2.0) Differential Total Cells Counted 100 Neutrophils % (Manual) 77 % (45-75) Lymphocytes % (Manual) 14 % (20-45) Monocytes % (Manual) 2 % (1-10) Eosinophils % (Manual) 1 % (0-3) Basophils % (Manual) 0 % (0-2) Band Neutrophils 6 % (0-8) Platelet Estimate Adequate Platelet Morphology Normal Hypochromasia 2+ Anisocytosis 1+ Spherocytes 1+ Urine Color Pale yellow Urine Appearance Slightly cloudy Urine pH 5 (4.5-8.0) Urine Specific [place] 1.010 (1.005-1.035) Urine Protein 2+ (NEGATIVE) Urine Glucose (UA) Negative (NEGATIVE) Urine Ketones Negative (NEGATIVE) Urine Blood 4+ (NEGATIVE) Urine Nitrite Negative (NEGATIVE) Urine Bilirubin Negative (NEGATIVE) Urine Urobilinogen Normal MG/DL (0.0-1.0) Urine Leukocyte Esterase 3+ (NEGATIVE) Urine RBC 2-4 /HPF (0 - 2) Urine WBC 5-10 /HPF (0 - 2) Urine Squamous Epithelial Cells Few /LPF (NONE/OCC) Urine Bacteria Few /HPF (NONE) Lactic Acid Level 0.90 mmol/L (0.4-2.0) Sodium Level 143 MMOL/L (136-145) 146 MMOL/L (136-145) Potassium Level 3.3 MMOL/L (3.5-5.1) 3.6 MMOL/L (3.5-5.1) Chloride Level 109 MMOL/L (98-107) 112 MMOL/L (98-107) Carbon Dioxide Level 22 MMOL/L (21-32) 22 MMOL/L (21-32) Anion Gap 12 mmol/L (5-15) 12 mmol/L (5-15) Blood Urea Nitrogen 52 mg/dL (7-18) 37 mg/dL (7-18) Creatinine 1.7 MG/DL (0.55-1.30) 1.4 MG/DL (0.55-1.30) Estimat Glomerular Filtration Rate mL/min (>60) mL/min (>60) Glucose Level 125 MG/DL (74-106) 190 MG/DL (74-106) Uric Acid 5.3 MG/DL (2.6-7.2) 5.2 MG/DL (2.6-7.2) Calcium Level 7.6 MG/DL (8.5-10.1) 8.0 MG/DL (8.5-10.1) Phosphorus Level 3.7 MG/DL (2.5-4.9) 2.9 MG/DL (2.5-4.9) Magnesium Level 1.9 MG/DL (1.8-2.4) 1.8 MG/DL (1.8-2.4) Total Bilirubin 0.2 MG/DL (0.2-1.0) 0.2 MG/DL (0.2-1.0) Gamma Glutamyl Transpeptidase 52 U/L (5-85) Aspartate Amino Transf (AST/SGOT) 20 U/L (15-37) 15 U/L (15-37) Alanine Aminotransferase (ALT/SGPT) 14 U/L (12-78) 16 U/L (12-78) Alkaline Phosphatase 62 U/L (46-116) 68 U/L (46-116) Ammonia 30 umol/L (11-32) C-Reactive Protein, Quantitative 41.1 mg/dL (0.00-0.90) Pro-B-Type Natriuretic Peptide 23394 pg/mL (0-125) Total Protein 6.7 G/DL (6.4-8.2) 7.0 G/DL (6.4-8.2) Albumin 1.4 G/DL (3.4-5.0) 1.4 G/DL (3.4-5.0) Globulin 5.3 g/dL 5.6 g/dL Albumin/Globulin Ratio 0.3 (1.0-2.7) 0.2 (1.0-2.7) Random Vancomycin Level 17.6 ug/mL 18.6 ug/mL Test 12/23/18 09:05 Arterial Blood pH 7.416 (7.350-7.450) Arterial Blood Partial Pressure CO2 32.5 mmHg (35.0-45.0) Arterial Blood Partial Pressure O2 106.7 mmHg (75.0-100.0) Arterial Blood HCO3 20.4 mmol/L (22.0-26.0) Arterial Blood Oxygen Saturation 97.7 % (95-100) Arterial Blood Base Excess -3.4 (-2-2) Brock Test Positive Objective: Sp02 EP Interpretation: reviewed, normal General Appearance: normal inspection, well appearing, no apparent distress, sedated Head: normocephalic, atraumatic Eyes: bilateral eye normal inspection ENT: oral ETT Neck: normal inspection, full range of motion, supple, no meningismus, carotid 2+ Respiratory: decreased breath sounds, moderate breath sounds with some rhonchi left Cardiovascular #1: regular rhythm, no murmur without MRG; Gastrointestinal: non tender, soft, non-distended, no guarding, no rebound Musculoskeletal: no CCE Neurologic: sedated reviewed and edited Micro: Microbiology Date/Time Source Procedure Growth Status 12/21/18 13:30 Blood Blood Culture - Preliminary Resulted Accucheck: 194 Juan Flanagan MD Dec 23, 2018 11:55
--- NOTE | 2018-12-23 12:13 | Cardiac Electrophysiology PN ---
Assessment/Plan Assessment/Plan 1. Hypotension due to combination of septic shock in view of high lactic acid of 7.5 as well as severe dehydration. The patient has received 5 liters of normal saline. Levophed DCed. Echo EF 50 to 55 percent. Continue iv fluids 2. Troponin leak due to renal failure. EKG does not show any acute ST-T wave abnormality and shows sinus tachycardia of 102 with only left atrial enlargement. 3. Respiratory failure. On the ventilator. On IV antibiotics. Failed weaning 4. Dysphagia, status post PEG placement. 5. Status post colostomy bag. 6. Severe dehydration with renal failure and hypernatremia. On IV fluids per Dr. Cifuentes. 7. Stage IV sacral decubitus ulcer. 8. Anemia of chronic disease. S/p PRBC . WELLINGTON RN Subjective Subjective Off pressors in ICU on the vent back on AC. No arrhythmias overnight Objective Last 24 Hour Vital Signs Date Time Temp Pulse Resp B/P (MAP) Pulse Ox O2 Delivery O2 Flow Rate FiO2 12/23/18 11:10 76 21 40 12/23/18 11:00 73 13 109/69 (82) 96 12/23/18 10:00 75 14 98/65 (76) 96 12/23/18 09:34 100 12/23/18 09:11 76 21 40 12/23/18 09:00 83 13 114/90 (98) 96 12/23/18 08:01 90 26 40 12/23/18 08:00 75 14 110/58 (75) 97 12/23/18 07:00 75 13 108/60 (76) 97 12/23/18 07:00 121/65 12/23/18 06:00 90 26 107/62 (77) 100 12/23/18 05:00 81 25 133/67 (89) 100 12/23/18 04:40 80 24 40 12/23/18 04:00 40 12/23/18 04:00 Mechanical Ventilator 12/23/18 04:00 99.1 81 19 135/75 (95) 100 12/23/18 03:39 79 12/23/18 03:20 78 19 40 12/23/18 03:00 89 23 127/88 (101) 100 12/23/18 02:00 90 24 113/70 (84) 100 12/23/18 01:00 92 24 113/65 (81) 100 12/23/18 01:00 95 26 40 12/23/18 00:00 40 12/23/18 00:00 Mechanical Ventilator 12/23/18 00:00 98.2 92 25 113/77 (89) 100 12/22/18 23:10 93 22 40 12/22/18 23:05 88 12/22/18 23:00 91 23 112/71 (85) 100 12/22/18 22:00 91 23 121/62 (81) 100 12/22/18 21:00 88 21 40 12/22/18 21:00 88 23 124/68 (86) 100 12/22/18 20:00 Mechanical Ventilator 12/22/18 20:00 99.2 92 25 125/75 (92) 100 12/22/18 20:00 40 12/22/18 19:40 91 12/22/18 19:14 99 26 40 12/22/18 19:00 88 23 105/53 (70) 94 12/22/18 18:00 85 20 121/63 (82) 99 12/22/18 17:00 89 24 40 12/22/18 17:00 93 25 122/57 (78) 97 12/22/18 16:00 Mechanical Ventilator 12/22/18 16:00 90 25 134/59 (84) 100 12/22/18 16:00 40 12/22/18 16:00 91 12/22/18 15:00 99.5 78 24 116/58 (77) 100 12/22/18 14:50 91 28 40 12/22/18 14:00 78 25 122/50 (74) 100 12/22/18 13:59 98.8 12/22/18 13:21 87 22 40 12/22/18 13:00 83 23 132/53 (79) 99 Intake and Output 12/22/18 12/23/18 19:00 07:00 Intake Total 2197.416 ml 1195 ml Output Total 1410 ml 1620 ml Balance 787.416 ml -425 ml Intake Free Water 300 ml 300 ml IV Total 1507.416 ml 535 ml Tube Feeding 390 ml 360 ml Output Urine Total 1010 ml 870 ml Stool Total 400 ml 750 ml # Bowel Movements 2 Laboratory Tests Test 12/23/18 05:00 12/23/18 09:05 White Blood Count 13.7 K/UL (4.8-10.8) H Red Blood Count 3.45 M/UL (4.20-5.40) L Hemoglobin 9.3 G/DL (12.0-16.0) L Hematocrit 29.1 % (37.0-47.0) L Mean Corpuscular Volume 84 FL (80-99) Mean Corpuscular Hemoglobin 27.0 PG (27.0-31.0) Mean Corpuscular Hemoglobin Concent 32.1 G/DL (32.0-36.0) Red Cell Distribution Width 15.3 % (11.6-14.8) H Platelet Count 219 K/UL (150-450) Mean Platelet Volume 8.6 FL (6.5-10.1) Neutrophils (%) (Auto) 80.6 % (45.0-75.0) H Lymphocytes (%) (Auto) 17.0 % (20.0-45.0) L Monocytes (%) (Auto) 1.4 % (1.0-10.0) Eosinophils (%) (Auto) 0.7 % (0.0-3.0) Basophils (%) (Auto) 0.2 % (0.0-2.0) Sodium Level 146 MMOL/L (136-145) H Potassium Level 3.6 MMOL/L (3.5-5.1) Chloride Level 112 MMOL/L (98-107) H Carbon Dioxide Level 22 MMOL/L (21-32) Anion Gap 12 mmol/L (5-15) Blood Urea Nitrogen 37 mg/dL (7-18) H Creatinine 1.4 MG/DL (0.55-1.30) H Estimat Glomerular Filtration Rate mL/min (>60) Glucose Level 190 MG/DL (74-106) H Uric Acid 5.2 MG/DL (2.6-7.2) Calcium Level 8.0 MG/DL (8.5-10.1) L Phosphorus Level 2.9 MG/DL (2.5-4.9) Magnesium Level 1.8 MG/DL (1.8-2.4) Total Bilirubin 0.2 MG/DL (0.2-1.0) Aspartate Amino Transf (AST/SGOT) 15 U/L (15-37) Alanine Aminotransferase (ALT/SGPT) 16 U/L (12-78) Alkaline Phosphatase 68 U/L (46-116) Total Protein 7.0 G/DL (6.4-8.2) Albumin 1.4 G/DL (3.4-5.0) L Globulin 5.6 g/dL Albumin/Globulin Ratio 0.2 (1.0-2.7) L Random Vancomycin Level 18.6 ug/mL Arterial Blood pH 7.416 (7.350-7.450) Arterial Blood Partial Pressure CO2 32.5 mmHg (35.0-45.0) L Arterial Blood Partial Pressure O2 106.7 mmHg (75.0-100.0) H Arterial Blood HCO3 20.4 mmol/L (22.0-26.0) L Arterial Blood Oxygen Saturation 97.7 % (95-100) Arterial Blood Base Excess -3.4 (-2-2) L Brock Test Positive Microbiology Date/Time Source Procedure Growth Status 12/21/18 13:30 Blood Blood Culture - Preliminary Resulted Objective HEAD AND NECK: No JVD. LUNGS: Coarse rhonchi orally intubated. CARDIOVASCULAR:Tachycardic, S1, S2 with no gallop or murmur. ABDOMEN: Soft and nontender. EXTREMITIES: No pitting edema. She has a G-tube and a colostomy bag. Logan Singh MD Dec 23, 2018 12:13
--- NOTE | 2018-12-23 14:32 | Hematology/Onc Progress Note ---
Assessment/Plan Assessment/Plan Assessment and Recs: # Anemia of chronic disease due to underlying chronic medical issues, multifactorial , ferritin 366, tibc 144 --> Anemia workup has been reviewed, rule out gi bleed --> No evidence of hemolysis is noted, peripheral smear has been reviewed. --> Hgb goal >7. Transfuse prn. --> Epogen or iron at this time is not particularly indicated --> Medications have been reviewed --> low threshold for gi evaluation in case has occult + --> Hgb trend: 9.3 # Leukocytosis/elevated white blood cell count, is due to underlying sepsis urine infection+ --> ID is following, appreciate recs --> have reviewed peripheral smear and bandemia/neutrophilia noted --> continue antibiotics per ID --> monitor for resolution --> trend 15-->24-->21k-->17.4 # Respiratory failure with hypoxia --> s/p vent placement intubated 12/20/18, --> pulm eval # Sacral decubitus ulcer, stage IV --> per surg # HCAP (healthcare-associated pneumonia) # ARF (acute renal failure) --> per renal # Hyperglycemia due to type 2 diabetes mellitus # Acute metabolic encephalopathy # Severe dehydration The timing of this note does not necessarily reflect the time of the patient was seen. GREATLY APPRECIATE CONSULTATION. Subjective ROS Limited/Unobtainable: Yes Hematologic/Lymphatic: Reports: anemia Allergies: Coded Allergies: ALLOPURINOL (Verified Allergy, Unknown, 12/20/18) Subjective 12/21: no events, on abx, with pressor 12/22: Pt tot start weaning off of vent. Remains on abx. CBC reviewed. Objective Objective Current Medications Medications (Trade) Dose Ordered Sig/Nora Route PRN Reason Start Time Stop Time Status Last Admin Dose Admin Acetaminophen (Tylenol) 650 mg Q4H PRN ORAL Mild Pain/Temp > 100.5 12/20/18 06:30 01/19/19 06:29 12/22/18 13:29 Chlorhexidine Gluconate (Valentina-Hex 2%) 1 applic DAILY@1999 TOPIC 12/22/18 20:00 01/21/19 19:59 12/22/18 19:55 Dextrose 1,000 ml @ 40 mls/hr Q24H IV 12/22/18 14:37 01/21/19 14:36 12/23/18 13:41 Dextrose (Dextrose 50%) 25 ml Q30M PRN IV Hypoglycemia 12/20/18 19:00 01/19/19 18:59 Dextrose (Dextrose 50%) 50 ml Q30M PRN IV Hypoglycemia 12/20/18 19:00 01/19/19 18:59 Insulin Aspart (NovoLOG) Q6HR SUBQ 12/20/18 12:00 01/19/19 11:59 12/23/18 13:49 Insulin Detemir (Levemir) 15 units BID SUBQ 12/21/18 09:00 01/20/19 08:59 12/23/18 08:28 Lansoprazole (Prevacid) 30 mg BID GT 12/20/18 18:00 01/20/19 08:59 12/23/18 08:27 Lorazepam (Ativan 2mg/ml 1ml) 1 mg Q3H PRN IV For Anxiety 12/22/18 09:00 12/29/18 08:59 12/22/18 16:07 Meropenem 1 gm/ Sodium Chloride 55 ml @ 110 mls/hr Q12HR@0100,1300 IVPB 12/21/18 13:00 12/26/18 12:59 12/23/18 13:41 Norepinephrine Bitartrate 4 mg/ Dextrose 250 ml @ 0 mls/hr Q24H IV 12/20/18 07:00 01/19/19 06:59 12/20/18 18:25 Vancomycin HCl (Vanco rx to dose) 1 ea DAILY PRN MISC Per rx protocol 12/20/18 11:00 01/19/19 10:59 Vancomycin HCl 1 gm/Dextrose 275 ml @ 183.708 mls/hr Q24H IVPB 12/24/18 09:00 12/29/18 08:59 Last 24 Hour Vital Signs Date Time Temp Pulse Resp B/P (MAP) Pulse Ox O2 Delivery O2 Flow Rate FiO2 12/23/18 14:00 73 17 112/58 (76) 100 12/23/18 13:17 63 17 40 12/23/18 13:00 74 17 124/64 (84) 100 12/23/18 12:00 98.1 79 20 145/67 (93) 100 12/23/18 12:00 40 12/23/18 12:00 79 12/23/18 11:10 76 21 40 12/23/18 11:00 73 13 109/69 (82) 96 12/23/18 10:00 75 14 98/65 (76) 96 12/23/18 09:34 100 12/23/18 09:11 76 21 40 12/23/18 09:00 83 13 114/90 (98) 96 12/23/18 08:01 90 26 40 12/23/18 08:00 75 14 110/58 (75) 97 12/23/18 08:00 77 12/23/18 08:00 40 12/23/18 07:00 75 13 108/60 (76) 97 12/23/18 07:00 121/65 12/23/18 06:00 90 26 107/62 (77) 100 12/23/18 05:00 81 25 133/67 (89) 100 12/23/18 04:40 80 24 40 12/23/18 04:00 40 12/23/18 04:00 Mechanical Ventilator 12/23/18 04:00 99.1 81 19 135/75 (95) 100 12/23/18 03:39 79 12/23/18 03:20 78 19 40 12/23/18 03:00 89 23 127/88 (101) 100 12/23/18 02:00 90 24 113/70 (84) 100 12/23/18 01:00 92 24 113/65 (81) 100 12/23/18 01:00 95 26 40 12/23/18 00:00 40 12/23/18 00:00 Mechanical Ventilator 12/23/18 00:00 98.2 92 25 113/77 (89) 100 12/22/18 23:10 93 22 40 12/22/18 23:05 88 12/22/18 23:00 91 23 112/71 (85) 100 12/22/18 22:00 91 23 121/62 (81) 100 12/22/18 21:00 88 21 40 12/22/18 21:00 88 23 124/68 (86) 100 12/22/18 20:00 Mechanical Ventilator 12/22/18 20:00 99.2 92 25 125/75 (92) 100 12/22/18 20:00 40 12/22/18 19:40 91 12/22/18 19:14 99 26 40 12/22/18 19:00 88 23 105/53 (70) 94 12/22/18 18:00 85 20 121/63 (82) 99 12/22/18 17:00 89 24 40 12/22/18 17:00 93 25 122/57 (78) 97 12/22/18 16:00 Mechanical Ventilator 12/22/18 16:00 90 25 134/59 (84) 100 12/22/18 16:00 40 12/22/18 16:00 91 12/22/18 15:00 99.5 78 24 116/58 (77) 100 12/22/18 14:50 91 28 40 12/22/18 14:00 78 25 122/50 (74) 100 12/22/18 13:59 98.8 12/22/18 13:21 87 22 40 12/22/18 13:00 83 23 132/53 (79) 99 12/22/18 12:00 72 12/22/18 12:00 100.3 73 21 111/50 (70) 100 12/22/18 12:00 40 12/22/18 12:00 Mechanical Ventilator 12/22/18 11:00 79 22 101/68 (79) 98 12/22/18 10:50 84 19 40 12/22/18 10:00 84 32 113/45 (67) 98 12/22/18 09:37 100 12/22/18 09:00 82 26 119/55 (76) 100 12/22/18 08:35 80 19 40 12/22/18 08:00 40 12/22/18 08:00 Mechanical Ventilator 12/22/18 08:00 67 12/22/18 08:00 99.4 77 25 103/72 (82) 100 12/22/18 07:01 82 20 107/46 (66) 100 12/22/18 06:45 81 19 40 12/22/18 06:00 90 30 107/46 (66) 100 12/22/18 05:00 76 21 109/50 (69) 100 12/22/18 04:55 73 19 40 12/22/18 04:00 97.7 73 20 116/52 (73) 100 12/22/18 04:00 40 12/22/18 04:00 Mechanical Ventilator 12/22/18 04:00 73 12/22/18 03:00 75 20 98/45 (62) 100 12/22/18 02:17 71 17 40 12/22/18 02:00 71 17 97/54 (68) 100 12/22/18 01:06 70 28 40 12/22/18 01:00 67 15 90/42 (58) 100 12/22/18 00:00 Mechanical Ventilator 12/22/18 00:00 66 12/22/18 00:00 40 12/22/18 00:00 97.7 66 16 90/43 (59) 100 12/21/18 23:00 73 16 102/73 (83) 100 12/21/18 22:40 73 20 40 12/21/18 22:00 68 15 97/42 (60) 100 12/21/18 21:06 74 18 40 12/21/18 21:00 74 20 97/41 (59) 99 12/21/18 20:00 73 12/21/18 20:00 40 12/21/18 20:00 98.6 73 17 92/35 (54) 99 12/21/18 20:00 Mechanical Ventilator 12/21/18 19:30 70 20 94/42 100 Mechanical Ventilator 60 12/21/18 19:00 71 19 97/43 100 Mechanical Ventilator 60 12/21/18 18:47 76 21 40 12/21/18 18:30 71 19 92/55 100 Mechanical Ventilator 60 12/21/18 18:00 74 20 94/48 99 Mechanical Ventilator 60 12/21/18 17:30 72 19 91/50 96 Mechanical Ventilator 60 12/21/18 17:00 71 17 101/43 100 Mechanical Ventilator 60 12/21/18 16:55 72 17 40 12/21/18 16:30 98.4 73 18 102/54 100 Mechanical Ventilator 60 12/21/18 16:00 73 17 106/48 100 Mechanical Ventilator 60 12/21/18 16:00 Mechanical Ventilator 12/21/18 16:00 40 12/21/18 16:00 70 12/21/18 15:30 69 15 93/44 100 Mechanical Ventilator 60 12/21/18 15:00 67 15 93/41 100 Mechanical Ventilator 60 12/21/18 14:46 69 15 40 12/21/18 14:30 67 15 94/44 100 Mechanical Ventilator 60 Intake and Output 12/22/18 12/23/18 19:00 07:00 Intake Total 2197.416 ml 1195 ml Output Total 1410 ml 1620 ml Balance 787.416 ml -425 ml Intake Free Water 300 ml 300 ml IV Total 1507.416 ml 535 ml Tube Feeding 390 ml 360 ml Output Urine Total 1010 ml 870 ml Stool Total 400 ml 750 ml # Bowel Movements 2 Labs Test 12/20/18 16:20 12/20/18 20:50 12/20/18 23:27 12/21/18 04:00 Lactic Acid Level 3.70 mmol/L (0.66-2.22) 3.20 mmol/L (0.4-2.0) 3.00 mmol/L (0.66-2.22) Stool Occult Blood Positive (NEGATIVE) Test 12/21/18 05:00 12/21/18 09:05 12/21/18 11:00 12/21/18 15:00 White Blood Count 23.5 K/UL (4.8-10.8) 21.1 K/UL (4.8-10.8) Red Blood Count 3.38 M/UL (4.20-5.40) 3.14 M/UL (4.20-5.40) Hemoglobin 9.3 G/DL (12.0-16.0) 8.6 G/DL (12.0-16.0) Hematocrit 29.0 % (37.0-47.0) 26.5 % (37.0-47.0) Mean Corpuscular Volume 86 FL (80-99) 84 FL (80-99) Mean Corpuscular Hemoglobin 27.5 PG (27.0-31.0) 27.4 PG (27.0-31.0) Mean Corpuscular Hemoglobin Concent 32.1 G/DL (32.0-36.0) 32.4 G/DL (32.0-36.0) Red Cell Distribution Width 15.1 % (11.6-14.8) 15.2 % (11.6-14.8) Platelet Count 210 K/UL (150-450) 193 K/UL (150-450) Mean Platelet Volume 7.7 FL (6.5-10.1) 7.8 FL (6.5-10.1) Neutrophils (%) (Auto) % (45.0-75.0) % (45.0-75.0) Lymphocytes (%) (Auto) % (20.0-45.0) % (20.0-45.0) Monocytes (%) (Auto) % (1.0-10.0) % (1.0-10.0) Eosinophils (%) (Auto) % (0.0-3.0) % (0.0-3.0) Basophils (%) (Auto) % (0.0-2.0) % (0.0-2.0) Differential Total Cells Counted 100 100 Neutrophils % (Manual) 77 % (45-75) 77 % (45-75) Lymphocytes % (Manual) 18 % (20-45) 14 % (20-45) Monocytes % (Manual) 2 % (1-10) 2 % (1-10) Eosinophils % (Manual) 0 % (0-3) 1 % (0-3) Basophils % (Manual) 0 % (0-2) 0 % (0-2) Band Neutrophils 3 % (0-8) 6 % (0-8) Platelet Estimate Adequate Adequate Platelet Morphology Normal Normal Hypochromasia 2+ 2+ Anisocytosis 1+ 1+ Sodium Level 151 MMOL/L (136-145) Potassium Level 3.1 MMOL/L (3.5-5.1) Chloride Level 114 MMOL/L (98-107) Carbon Dioxide Level 24 MMOL/L (21-32) Anion Gap 13 mmol/L (5-15) Blood Urea Nitrogen 81 mg/dL (7-18) Creatinine 1.8 MG/DL (0.55-1.30) Estimat Glomerular Filtration Rate mL/min (>60) Glucose Level 114 MG/DL (74-106) Uric Acid 6.4 MG/DL (2.6-7.2) Calcium Level 7.7 MG/DL (8.5-10.1) Phosphorus Level 2.6 MG/DL (2.5-4.9) Magnesium Level 1.6 MG/DL (1.8-2.4) Total Bilirubin 0.3 MG/DL (0.2-1.0) Aspartate Amino Transf (AST/SGOT) 22 U/L (15-37) Alanine Aminotransferase (ALT/SGPT) 21 U/L (12-78) Alkaline Phosphatase 62 U/L (46-116) Troponin I 0.105 ng/mL (0.000-0.056) C-Reactive Protein, Quantitative 39.1 mg/dL (0.00-0.90) Pro-B-Type Natriuretic Peptide 4891 pg/mL (0-125) Total Protein 7.0 G/DL (6.4-8.2) Albumin 1.7 G/DL (3.4-5.0) Globulin 5.3 g/dL Albumin/Globulin Ratio 0.3 (1.0-2.7) Random Vancomycin Level 14.4 ug/mL Arterial Blood pH 7.403 (7.350-7.450) Arterial Blood Partial Pressure CO2 36.8 mmHg (35.0-45.0) Arterial Blood Partial Pressure O2 139.6 mmHg (75.0-100.0) Arterial Blood HCO3 22.4 mmol/L (22.0-26.0) Arterial Blood Oxygen Saturation 98.1 % (95-100) Arterial Blood Base Excess -2.0 (-2-2) Brock Test Positive Spherocytes 1+ Urine Color Pale yellow Urine Appearance Slightly cloudy Urine pH 5 (4.5-8.0) Urine Specific [place] 1.010 (1.005-1.035) Urine Protein 2+ (NEGATIVE) Urine Glucose (UA) Negative (NEGATIVE) Urine Ketones Negative (NEGATIVE) Urine Blood 4+ (NEGATIVE) Urine Nitrite Negative (NEGATIVE) Urine Bilirubin Negative (NEGATIVE) Urine Urobilinogen Normal MG/DL (0.0-1.0) Urine Leukocyte Esterase 3+ (NEGATIVE) Urine RBC 2-4 /HPF (0 - 2) Urine WBC 5-10 /HPF (0 - 2) Urine Squamous Epithelial Cells Few /LPF (NONE/OCC) Urine Bacteria Few /HPF (NONE) Lactic Acid Level 0.90 mmol/L (0.4-2.0) Test 12/22/18 04:30 12/23/18 05:00 12/23/18 09:05 White Blood Count 17.4 K/UL (4.8-10.8) 13.7 K/UL (4.8-10.8) Red Blood Count 3.20 M/UL (4.20-5.40) 3.45 M/UL (4.20-5.40) Hemoglobin 8.9 G/DL (12.0-16.0) 9.3 G/DL (12.0-16.0) Hematocrit 26.8 % (37.0-47.0) 29.1 % (37.0-47.0) Mean Corpuscular Volume 84 FL (80-99) 84 FL (80-99) Mean Corpuscular Hemoglobin 27.7 PG (27.0-31.0) 27.0 PG (27.0-31.0) Mean Corpuscular Hemoglobin Concent 33.0 G/DL (32.0-36.0) 32.1 G/DL (32.0-36.0) Red Cell Distribution Width 15.4 % (11.6-14.8) 15.3 % (11.6-14.8) Platelet Count 197 K/UL (150-450) 219 K/UL (150-450) Mean Platelet Volume 8.3 FL (6.5-10.1) 8.6 FL (6.5-10.1) Neutrophils (%) (Auto) 78.3 % (45.0-75.0) 80.6 % (45.0-75.0) Lymphocytes (%) (Auto) 18.9 % (20.0-45.0) 17.0 % (20.0-45.0) Monocytes (%) (Auto) 1.2 % (1.0-10.0) 1.4 % (1.0-10.0) Eosinophils (%) (Auto) 1.2 % (0.0-3.0) 0.7 % (0.0-3.0) Basophils (%) (Auto) 0.4 % (0.0-2.0) 0.2 % (0.0-2.0) Sodium Level 143 MMOL/L (136-145) 146 MMOL/L (136-145) Potassium Level 3.3 MMOL/L (3.5-5.1) 3.6 MMOL/L (3.5-5.1) Chloride Level 109 MMOL/L (98-107) 112 MMOL/L (98-107) Carbon Dioxide Level 22 MMOL/L (21-32) 22 MMOL/L (21-32) Anion Gap 12 mmol/L (5-15) 12 mmol/L (5-15) Blood Urea Nitrogen 52 mg/dL (7-18) 37 mg/dL (7-18) Creatinine 1.7 MG/DL (0.55-1.30) 1.4 MG/DL (0.55-1.30) Estimat Glomerular Filtration Rate mL/min (>60) mL/min (>60) Glucose Level 125 MG/DL (74-106) 190 MG/DL (74-106) Uric Acid 5.3 MG/DL (2.6-7.2) 5.2 MG/DL (2.6-7.2) Calcium Level 7.6 MG/DL (8.5-10.1) 8.0 MG/DL (8.5-10.1) Phosphorus Level 3.7 MG/DL (2.5-4.9) 2.9 MG/DL (2.5-4.9) Magnesium Level 1.9 MG/DL (1.8-2.4) 1.8 MG/DL (1.8-2.4) Total Bilirubin 0.2 MG/DL (0.2-1.0) 0.2 MG/DL (0.2-1.0) Gamma Glutamyl Transpeptidase 52 U/L (5-85) Aspartate Amino Transf (AST/SGOT) 20 U/L (15-37) 15 U/L (15-37) Alanine Aminotransferase (ALT/SGPT) 14 U/L (12-78) 16 U/L (12-78) Alkaline Phosphatase 62 U/L (46-116) 68 U/L (46-116) Ammonia 30 umol/L (11-32) C-Reactive Protein, Quantitative 41.1 mg/dL (0.00-0.90) Pro-B-Type Natriuretic Peptide 87678 pg/mL (0-125) Total Protein 6.7 G/DL (6.4-8.2) 7.0 G/DL (6.4-8.2) Albumin 1.4 G/DL (3.4-5.0) 1.4 G/DL (3.4-5.0) Globulin 5.3 g/dL 5.6 g/dL Albumin/Globulin Ratio 0.3 (1.0-2.7) 0.2 (1.0-2.7) Random Vancomycin Level 17.6 ug/mL 18.6 ug/mL Arterial Blood pH 7.416 (7.350-7.450) Arterial Blood Partial Pressure CO2 32.5 mmHg (35.0-45.0) Arterial Blood Partial Pressure O2 106.7 mmHg (75.0-100.0) Arterial Blood HCO3 20.4 mmol/L (22.0-26.0) Arterial Blood Oxygen Saturation 97.7 % (95-100) Arterial Blood Base Excess -3.4 (-2-2) Brock Test Positive Height (Feet): 5 Height (Inches): 6.00 Weight (Pounds): 198 Objective Sp02 EP Interpretation: reviewed General Appearance: severe distress, lethargic, Chronically Ill Head: normocephalic, atraumatic Eyes: bilateral eye PERRL, bilateral eye EOMI ENT: dry mucus membranes Neck: full range of motion, supple, no meningismus Respiratory: chest non-tender, respiratory distress, rhonchi. VENT++ Cardiovascular: regular rate, rhythm, no murmur, tachycardia Gastrointestinal: normal bowel sounds, non tender- Reducible abdominal wall hernia. COLOSTOMY+, GT++ Rectal: other - large sacral Stage 4 ulcer Musculoskeletal: back normal, normal range of motion Psychiatric: mood/affect normal Skin: warm/dry Tobin Stover MD Dec 23, 2018 14:32
--- NOTE | 2018-12-23 17:05 | Surgery Progress Note ---
Surgery Progress Note Subjective Additional Comments ill appearing in ICU Objective Last 24 Hour Vital Signs Date Time Temp Pulse Resp B/P (MAP) Pulse Ox O2 Delivery O2 Flow Rate FiO2 12/23/18 16:41 67 21 40 12/23/18 15:14 77 19 40 12/23/18 14:00 73 17 112/58 (76) 100 12/23/18 13:17 63 17 40 12/23/18 13:00 74 17 124/64 (84) 100 12/23/18 12:00 98.1 79 20 145/67 (93) 100 12/23/18 12:00 40 12/23/18 12:00 79 12/23/18 11:10 76 21 40 12/23/18 11:00 73 13 109/69 (82) 96 12/23/18 10:00 75 14 98/65 (76) 96 12/23/18 09:34 100 12/23/18 09:11 76 21 40 12/23/18 09:00 83 13 114/90 (98) 96 12/23/18 08:01 90 26 40 12/23/18 08:00 75 14 110/58 (75) 97 12/23/18 08:00 77 12/23/18 08:00 40 12/23/18 07:00 75 13 108/60 (76) 97 12/23/18 07:00 121/65 12/23/18 06:00 90 26 107/62 (77) 100 12/23/18 05:00 81 25 133/67 (89) 100 12/23/18 04:40 80 24 40 12/23/18 04:00 40 12/23/18 04:00 Mechanical Ventilator 12/23/18 04:00 99.1 81 19 135/75 (95) 100 12/23/18 03:39 79 12/23/18 03:20 78 19 40 12/23/18 03:00 89 23 127/88 (101) 100 12/23/18 02:00 90 24 113/70 (84) 100 12/23/18 01:00 92 24 113/65 (81) 100 12/23/18 01:00 95 26 40 12/23/18 00:00 40 12/23/18 00:00 Mechanical Ventilator 12/23/18 00:00 98.2 92 25 113/77 (89) 100 12/22/18 23:10 93 22 40 12/22/18 23:05 88 12/22/18 23:00 91 23 112/71 (85) 100 12/22/18 22:00 91 23 121/62 (81) 100 12/22/18 21:00 88 21 40 12/22/18 21:00 88 23 124/68 (86) 100 12/22/18 20:00 Mechanical Ventilator 12/22/18 20:00 99.2 92 25 125/75 (92) 100 12/22/18 20:00 40 12/22/18 19:40 91 12/22/18 19:14 99 26 40 12/22/18 19:00 88 23 105/53 (70) 94 12/22/18 18:00 85 20 121/63 (82) 99 I&O Intake and Output 12/22/18 12/23/18 19:00 07:00 Intake Total 2197.416 ml 1195 ml Output Total 1410 ml 1620 ml Balance 787.416 ml -425 ml Intake Free Water 300 ml 300 ml IV Total 1507.416 ml 535 ml Tube Feeding 390 ml 360 ml Output Urine Total 1010 ml 870 ml Stool Total 400 ml 750 ml # Bowel Movements 2 Dressing: saturated Wound: other Drains: other Cardiovascular: RSR Respiratory: decreased breath sounds Abdomen: soft, present bowel sounds, non-distended Extremities: other Laboratory Tests Test 12/23/18 05:00 12/23/18 09:05 White Blood Count 13.7 K/UL (4.8-10.8) H Red Blood Count 3.45 M/UL (4.20-5.40) L Hemoglobin 9.3 G/DL (12.0-16.0) L Hematocrit 29.1 % (37.0-47.0) L Mean Corpuscular Volume 84 FL (80-99) Mean Corpuscular Hemoglobin 27.0 PG (27.0-31.0) Mean Corpuscular Hemoglobin Concent 32.1 G/DL (32.0-36.0) Red Cell Distribution Width 15.3 % (11.6-14.8) H Platelet Count 219 K/UL (150-450) Mean Platelet Volume 8.6 FL (6.5-10.1) Neutrophils (%) (Auto) 80.6 % (45.0-75.0) H Lymphocytes (%) (Auto) 17.0 % (20.0-45.0) L Monocytes (%) (Auto) 1.4 % (1.0-10.0) Eosinophils (%) (Auto) 0.7 % (0.0-3.0) Basophils (%) (Auto) 0.2 % (0.0-2.0) Sodium Level 146 MMOL/L (136-145) H Potassium Level 3.6 MMOL/L (3.5-5.1) Chloride Level 112 MMOL/L (98-107) H Carbon Dioxide Level 22 MMOL/L (21-32) Anion Gap 12 mmol/L (5-15) Blood Urea Nitrogen 37 mg/dL (7-18) H Creatinine 1.4 MG/DL (0.55-1.30) H Estimat Glomerular Filtration Rate mL/min (>60) Glucose Level 190 MG/DL (74-106) H Uric Acid 5.2 MG/DL (2.6-7.2) Calcium Level 8.0 MG/DL (8.5-10.1) L Phosphorus Level 2.9 MG/DL (2.5-4.9) Magnesium Level 1.8 MG/DL (1.8-2.4) Total Bilirubin 0.2 MG/DL (0.2-1.0) Aspartate Amino Transf (AST/SGOT) 15 U/L (15-37) Alanine Aminotransferase (ALT/SGPT) 16 U/L (12-78) Alkaline Phosphatase 68 U/L (46-116) Total Protein 7.0 G/DL (6.4-8.2) Albumin 1.4 G/DL (3.4-5.0) L Globulin 5.6 g/dL Albumin/Globulin Ratio 0.2 (1.0-2.7) L Random Vancomycin Level 18.6 ug/mL Arterial Blood pH 7.416 (7.350-7.450) Arterial Blood Partial Pressure CO2 32.5 mmHg (35.0-45.0) L Arterial Blood Partial Pressure O2 106.7 mmHg (75.0-100.0) H Arterial Blood HCO3 20.4 mmol/L (22.0-26.0) L Arterial Blood Oxygen Saturation 97.7 % (95-100) Arterial Blood Base Excess -3.4 (-2-2) L Brock Test Positive Plan Problems: (1) Sepsis Assessment & Plan: cont current ICU care and management Cont IV abx trend labs (2) Severe dehydration (3) Anemia, chronic disease (4) HCAP (healthcare-associated pneumonia) (5) Sacral decubitus ulcer, stage IV Assessment & Plan: Pt presented on admission with full thickness Sacral Pressure Injury with undermining. Bone is palpable. Base of has beefy red granulation with scattered small purple areas. No odor noted .Scant serous exudate noted . Edges pink and flat. (L)13cm x (W)14cm x (D)5.6cm,[id number]- 4 by 4cm @11o'clock. DTPI noted to lateral R foot. .Base of wound purple and fluctuant in center with surrounding maroon discoloration (L)1.5cm x (W)1cm. Non-blanchable erythema with fluctuance noted to posterior and medial R heel. L heel boggy but blanchable. Tx.Plan: Cleanse Sacral wound with Saline. Loosely pack with Hydrogel Impregnated Kerlix. Cover with ABD pads and secure with Paper Tape or Tegaderm Daily and prn. Apply Cavilon Skin Barrier to R and Heel and lateral R heel. Ciover with Optifoam drsg. Change every 7 days and PRN. Apply Cavilon Skin Barrier to L heel. Cover with Optifoam drsg. Change every 7 days and prn. APM/VIJI Mattress Overlay. Reposition at least every 2hours or as tolerated. Off-load heels with Pillow. (6) Hyperglycemia due to type 2 diabetes mellitus (7) Acute metabolic encephalopathy (8) Hypotension (9) ARF (acute renal failure) (10) Respiratory failure with hypoxia Mauro Morrow Dec 23, 2018 17:05
--- NOTE | 2018-12-23 17:12 | General Progress Note ---
Assessment/Plan Problem List: (1) Anemia, chronic disease ICD Codes: D63.8 - Anemia in other chronic diseases classified elsewhere SNOMED: 395170012, 221198571 (2) Severe dehydration ICD Codes: E86.0 - Dehydration SNOMED: 025803487, 897388473 (3) Hyperglycemia due to type 2 diabetes mellitus ICD Codes: E11.65 - Type 2 diabetes mellitus with hyperglycemia SNOMED: 214360460286977, 52965109 Qualifiers: Qualified Codes: E11.65 - Type 2 diabetes mellitus with hyperglycemia; Z79.4 - [facility] (current) use of insulin (4) Acute metabolic encephalopathy ICD Codes: G93.41 - Metabolic encephalopathy SNOMED: 54818852, 616396971 (5) Hypotension ICD Codes: I95.9 - Hypotension, unspecified SNOMED: 40484508 (6) ARF (acute renal failure) ICD Codes: N17.9 - Acute kidney failure, unspecified SNOMED: 92221122, 425562855 Qualifiers: Qualified Codes: N17.9 - Acute kidney failure, unspecified (7) Respiratory failure with hypoxia ICD Codes: J96.91 - Respiratory failure, unspecified with hypoxia SNOMED: 43637312983486100, 273107787 Qualifiers: Qualified Codes: J96.01 - Acute respiratory failure with hypoxia (8) Renal failure (ARF), acute on chronic ICD Codes: N17.9 - Acute kidney failure, unspecified; N18.9 - Chronic kidney disease, unspecified SNOMED: 220086836 (9) Anemia ICD Codes: D64.9 - Anemia, unspecified SNOMED: 780184936 Status: stable, progressing Assessment/Plan: resp failure intubated pna arf anemia sacral decub lehtargic poor prognosis reviewed chart and labs Subjective ROS Limited/Unobtainable: Yes Allergies: Coded Allergies: ALLOPURINOL (Verified Allergy, Unknown, 12/20/18) Objective Last 24 Hour Vital Signs Date Time Temp Pulse Resp B/P (MAP) Pulse Ox O2 Delivery O2 Flow Rate FiO2 12/23/18 16:41 67 21 40 12/23/18 15:14 77 19 40 12/23/18 14:00 73 17 112/58 (76) 100 12/23/18 13:17 63 17 40 12/23/18 13:00 74 17 124/64 (84) 100 12/23/18 12:00 98.1 79 20 145/67 (93) 100 12/23/18 12:00 40 12/23/18 12:00 79 12/23/18 11:10 76 21 40 12/23/18 11:00 73 13 109/69 (82) 96 12/23/18 10:00 75 14 98/65 (76) 96 12/23/18 09:34 100 12/23/18 09:11 76 21 40 12/23/18 09:00 83 13 114/90 (98) 96 12/23/18 08:01 90 26 40 12/23/18 08:00 75 14 110/58 (75) 97 12/23/18 08:00 77 12/23/18 08:00 40 12/23/18 07:00 75 13 108/60 (76) 97 12/23/18 07:00 121/65 12/23/18 06:00 90 26 107/62 (77) 100 12/23/18 05:00 81 25 133/67 (89) 100 12/23/18 04:40 80 24 40 12/23/18 04:00 40 12/23/18 04:00 Mechanical Ventilator 12/23/18 04:00 99.1 81 19 135/75 (95) 100 12/23/18 03:39 79 12/23/18 03:20 78 19 40 12/23/18 03:00 89 23 127/88 (101) 100 12/23/18 02:00 90 24 113/70 (84) 100 12/23/18 01:00 92 24 113/65 (81) 100 12/23/18 01:00 95 26 40 12/23/18 00:00 40 12/23/18 00:00 Mechanical Ventilator 12/23/18 00:00 98.2 92 25 113/77 (89) 100 12/22/18 23:10 93 22 40 12/22/18 23:05 88 12/22/18 23:00 91 23 112/71 (85) 100 12/22/18 22:00 91 23 121/62 (81) 100 12/22/18 21:00 88 21 40 12/22/18 21:00 88 23 124/68 (86) 100 12/22/18 20:00 Mechanical Ventilator 12/22/18 20:00 99.2 92 25 125/75 (92) 100 12/22/18 20:00 40 12/22/18 19:40 91 12/22/18 19:14 99 26 40 12/22/18 19:00 88 23 105/53 (70) 94 12/22/18 18:00 85 20 121/63 (82) 99 Intake and Output 12/22/18 12/23/18 19:00 07:00 Intake Total 2197.416 ml 1195 ml Output Total 1410 ml 1620 ml Balance 787.416 ml -425 ml Intake Free Water 300 ml 300 ml IV Total 1507.416 ml 535 ml Tube Feeding 390 ml 360 ml Output Urine Total 1010 ml 870 ml Stool Total 400 ml 750 ml # Bowel Movements 2 Laboratory Tests 12/23/18 05:00: White Blood Count 13.7H, Red Blood Count 3.45L, Hemoglobin 9.3L, Hematocrit 29.1L, Mean Corpuscular Volume 84, Mean Corpuscular Hemoglobin 27.0, Mean Corpuscular Hemoglobin Concent 32.1, Red Cell Distribution Width 15.3H, Platelet Count 219, Mean Platelet Volume 8.6, Neutrophils (%) (Auto) 80.6H, Lymphocytes (%) (Auto) 17.0L, Monocytes (%) (Auto) 1.4, Eosinophils (%) (Auto) 0.7, Basophils (%) (Auto) 0.2, Sodium Level 146H, Potassium Level 3.6, Chloride Level 112H, Carbon Dioxide Level 22, Anion Gap 12, Blood Urea Nitrogen 37H, Creatinine 1.4H, Estimat Glomerular Filtration Rate , Glucose Level 190H, Uric Acid 5.2, Calcium Level 8.0L, Phosphorus Level 2.9, Magnesium Level 1.8, Total Bilirubin 0.2, Aspartate Amino Transf (AST/SGOT) 15, Alanine Aminotransferase ( ALT/SGPT) 16, Alkaline Phosphatase 68, Total Protein 7.0, Albumin 1.4L, Globulin 5.6, Albumin/Globulin Ratio 0.2L, Random Vancomycin Level 18.6 12/23/18 09:05: Arterial Blood pH 7.416, Arterial Blood Partial Pressure CO2 32.5L, Arterial Blood Partial Pressure O2 106.7H, Arterial Blood HCO3 20.4L, Arterial Blood Oxygen Saturation 97.7, Arterial Blood Base Excess -3.4L, Brock Test Positive Height (Feet): 5 Height (Inches): 6.00 Weight (Pounds): 198 General Appearance: lethargic Cardiovascular: normal rate Respiratory/Chest: lungs clear Danial Walden MD Dec 23, 2018 17:12
--- NOTE | 2018-12-23 19:17 | Cardiology Report ---
APPROVED REPORT EKG Measurement Heart [id number] PA 150P75 [id number] Sinus tachycardia Possible Left atrial enlargement Borderline ECG
[2018-12-23] MEDS: Dyna-Hex 2% Top Sol 2oz TOPIC SCH (20:47)
[2018-12-24] VITALS (24 sets, daily range): BP systolic 124–159; BP diastolic 49–125
[2018-12-24] MEDS: Meropenem 1 GM in NS 55 ML IVPB SCH ×2 (00:01→12:56)
[2018-12-24] MEDS: NovoLOG Insulin Flexpen SUBQ SCH ×3 (05:28→17:30)
[2018-12-24 06:29] LABS: BASOPHILS % (AUTO) 0.3 % (0.0-2.0); EOSINOPHILS % (AUTO) 1.1 % (0.0-3.0); HEMATOCRIT 29.3 % (37.0-47.0); HEMOGLOBIN 9.5 G/DL (12.0-16.0); LYMPHOCYTES % (AUTO) 20.5 % (20.0-45.0); MEAN CORPUSCULAR VOLUME 84 FL (80-99); MONOCYTES % (AUTO) 2.3 % (1.0-10.0); NEUTROPHILS % (AUTO) 75.9 % (45.0-75.0); PLATELET COUNT 208 K/UL (150-450); RED BLOOD COUNT 3.47 M/UL (4.20-5.40); RED CELL DISTRIBUTION WIDTH 15.1 % (11.6-14.8); WHITE BLOOD COUNT 11.2 K/UL (4.8-10.8)
--- NOTE | 2018-12-24 06:46 | General Progress Note ---
Assessment/Plan Problem List: (1) Sepsis ICD Codes: A41.9 - Sepsis, unspecified organism SNOMED: 93352026, 055978687 Qualifiers: Qualified Codes: A41.9 - Sepsis, unspecified organism (2) HCAP (healthcare-associated pneumonia) ICD Codes: J18.9 - Pneumonia, unspecified organism SNOMED: 701476900, 991748796 (3) Sacral decubitus ulcer, stage IV ICD Codes: L89.154 - Pressure ulcer of sacral region, stage 4 SNOMED: 335403371, 995011148 (4) Hyperglycemia due to type 2 diabetes mellitus ICD Codes: E11.65 - Type 2 diabetes mellitus with hyperglycemia SNOMED: 246573438027110, 67753724 Qualifiers: Qualified Codes: E11.65 - Type 2 diabetes mellitus with hyperglycemia; Z79.4 - [facility] (current) use of insulin (5) Acute metabolic encephalopathy ICD Codes: G93.41 - Metabolic encephalopathy SNOMED: 04644740, 320367981 (6) ARF (acute renal failure) ICD Codes: N17.9 - Acute kidney failure, unspecified SNOMED: 39275147, 990376984 Qualifiers: Qualified Codes: N17.9 - Acute kidney failure, unspecified (7) Respiratory failure with hypoxia ICD Codes: J96.91 - Respiratory failure, unspecified with hypoxia SNOMED: 26135565626367871, 805754049 Qualifiers: Qualified Codes: J96.01 - Acute respiratory failure with hypoxia Status: stable, progressing Assessment/Plan: continue Levemir 15 units bid continue NISS every 6 hours Subjective ROS Limited/Unobtainable: Yes Allergies: Coded Allergies: ALLOPURINOL (Verified Allergy, Unknown, 12/20/18) Subjective events noted remained intubated Item Value Date Time Bedside Blood Glucose 111 mg/dl 12/24/18 0600 Bedside Blood Glucose 118 mg/dl 12/24/18 0000 Bedside Blood Glucose 142 mg/dl H 12/23/18 1813 Bedside Blood Glucose 169 mg/dl H 12/23/18 1349 Bedside Blood Glucose 194 mg/dl H 12/23/18 0828 Objective Last 24 Hour Vital Signs Date Time Temp Pulse Resp B/P (MAP) Pulse Ox O2 Delivery O2 Flow Rate FiO2 12/24/18 06:00 71 21 148/56 (86) 100 12/24/18 05:00 69 19 148/49 (82) 100 12/24/18 04:52 71 21 40 12/24/18 04:00 Mechanical Ventilator 12/24/18 04:00 61 12/24/18 04:00 98.6 80 20 148/68 (94) 100 12/24/18 04:00 40 12/24/18 03:00 72 17 131/85 (100) 100 12/24/18 02:55 80 18 40 12/24/18 02:00 71 17 125/72 (89) 100 12/24/18 01:01 81 22 40 12/24/18 01:00 83 23 147/79 (101) 100 12/24/18 00:00 65 12/24/18 00:00 Mechanical Ventilator 12/24/18 00:00 40 12/24/18 00:00 98.0 69 17 129/70 (89) 100 12/23/18 23:00 67 17 104/57 (73) 100 12/23/18 22:34 82 18 40 12/23/18 22:00 74 19 109/58 (75) 100 12/23/18 21:00 85 21 143/69 (93) 100 12/23/18 20:55 78 18 40 12/23/18 20:00 40 12/23/18 20:00 Mechanical Ventilator 12/23/18 20:00 77 12/23/18 20:00 98.2 78 17 118/63 (81) 100 12/23/18 19:00 78 22 139/57 (84) 100 12/23/18 18:55 80 19 40 12/23/18 18:00 72 17 107/67 (80) 100 12/23/18 17:00 72 18 133/58 (83) 100 12/23/18 16:41 67 21 40 12/23/18 16:00 98.3 74 18 128/62 (84) 100 12/23/18 16:00 67 12/23/18 16:00 40 12/23/18 16:00 Mechanical Ventilator 12/23/18 15:14 77 19 40 12/23/18 15:00 74 17 115/69 (84) 100 12/23/18 14:00 73 17 112/58 (76) 100 12/23/18 13:17 63 17 40 12/23/18 13:00 74 17 124/64 (84) 100 12/23/18 12:00 98.1 79 20 145/67 (93) 100 12/23/18 12:00 Mechanical Ventilator 12/23/18 12:00 40 12/23/18 12:00 79 12/23/18 11:10 76 21 40 12/23/18 11:00 73 13 109/69 (82) 96 12/23/18 10:00 75 14 98/65 (76) 96 12/23/18 09:34 100 12/23/18 09:11 76 21 40 12/23/18 09:00 83 13 114/90 (98) 96 12/23/18 08:01 90 26 40 12/23/18 08:00 75 14 110/58 (75) 97 12/23/18 08:00 Mechanical Ventilator 12/23/18 08:00 77 12/23/18 08:00 40 12/23/18 07:00 75 13 108/60 (76) 97 12/23/18 07:00 121/65 Intake and Output 12/23/18 12/24/18 19:00 07:00 Intake Total 1439.208 ml 1075 ml Output Total 1025 ml 815 ml Balance 414.208 ml 260 ml Intake Free Water 200 ml 180 ml IV Total 849.208 ml 495 ml Tube Feeding 360 ml 400 ml Other 30 ml Output Urine Total 850 ml 715 ml Stool Total 175 ml 100 ml Laboratory Tests 12/23/18 09:05: Arterial Blood pH 7.416, Arterial Blood Partial Pressure CO2 32.5L, Arterial Blood Partial Pressure O2 106.7H, Arterial Blood HCO3 20.4L, Arterial Blood Oxygen Saturation 97.7, Arterial Blood Base Excess -3.4L, Brock Test Positive 12/24/18 05:30: White Blood Count 11.2H, Red Blood Count 3.47L, Hemoglobin 9.5L, Hematocrit 29.3L, Mean Corpuscular Volume 84, Mean Corpuscular Hemoglobin 27.3, Mean Corpuscular Hemoglobin Concent 32.3, Red Cell Distribution Width 15.1H, Platelet Count 208, Mean Platelet Volume 8.2, Neutrophils (%) (Auto) 75.9H, Lymphocytes (%) (Auto) 20.5, Monocytes (%) (Auto) 2.3, Eosinophils (%) (Auto) 1.1, Basophils (%) (Auto) 0.3, Sodium Level [Pending], Potassium Level [Pending] , Chloride Level [Pending], Carbon Dioxide Level [Pending], Blood Urea Nitrogen [Pending], Creatinine [Pending], Estimat Glomerular Filtration Rate [Pending], Glucose Level [Pending], Calcium Level [Pending], Phosphorus Level [Pending], Magnesium Level [Pending], Total Bilirubin [Pending], Aspartate Amino Transf ( AST/SGOT) [Pending], Alanine Aminotransferase (ALT/SGPT) [Pending], Alkaline Phosphatase [Pending], C-Reactive Protein, Quantitative [Pending], Pro-B-Type Natriuretic Peptide [Pending], Total Protein [Pending], Albumin [Pending], Globulin [Pending] Height (Feet): 5 Height (Inches): 6.00 Weight (Pounds): 207 General Appearance: other - intubated EENT: other - ETT Neck: normal alignment Cardiovascular: normal rate Respiratory/Chest: decreased breath sounds Abdomen: normal bowel sounds Pelvis: normal external exam Objective Current Medications Medications (Trade) Dose Ordered Sig/Nora Route PRN Reason Start Time Stop Time Status Last Admin Dose Admin Acetaminophen (Tylenol) 650 mg Q4H PRN ORAL Mild Pain/Temp > 100.5 12/20/18 06:30 01/19/19 06:29 12/23/18 20:58 Chlorhexidine Gluconate (Valentina-Hex 2%) 1 applic DAILY@2000 TOPIC 12/22/18 20:00 01/21/19 19:59 12/23/18 20:47 Dextrose 1,000 ml @ 40 mls/hr Q24H IV 12/22/18 14:37 01/21/19 14:36 12/23/18 13:41 Dextrose (Dextrose 50%) 25 ml Q30M PRN IV Hypoglycemia 12/20/18 19:00 01/19/19 18:59 Dextrose (Dextrose 50%) 50 ml Q30M PRN IV Hypoglycemia 12/20/18 19:00 01/19/19 18:59 Insulin Aspart (NovoLOG) Q6HR SUBQ 12/20/18 12:00 01/19/19 11:59 12/24/18 05:28 Insulin Detemir (Levemir) 15 units BID SUBQ 12/21/18 09:00 01/20/19 08:59 12/23/18 18:12 Lansoprazole (Prevacid) 30 mg BID GT 12/20/18 18:00 01/20/19 08:59 12/23/18 18:09 Lorazepam (Ativan 2mg/ml 1ml) 1 mg Q3H PRN IV For Anxiety 12/22/18 09:00 12/29/18 08:59 12/22/18 16:07 Meropenem 1 gm/ Sodium Chloride 55 ml @ 110 mls/hr Q12HR@0100,1300 IVPB 12/21/18 13:00 12/26/18 12:59 12/24/18 00:01 Norepinephrine Bitartrate 4 mg/ Dextrose 250 ml @ 0 mls/hr Q24H IV 12/20/18 07:00 01/19/19 06:59 12/20/18 18:25 Vancomycin HCl (Vanco rx to dose) 1 ea DAILY PRN MISC Per rx protocol 12/20/18 11:00 01/19/19 10:59 Vancomycin HCl 1 gm/Dextrose 275 ml @ 183.708 mls/hr Q24H IVPB 12/24/18 09:00 12/29/18 08:59 Pablo Day MD Dec 24, 2018 06:46
[2018-12-24 07:24] LABS: ALANINE AMINOTRANSFERASE 18 U/L (12-78); ALBUMIN 1.4 G/DL (3.4-5.0); ALBUMIN/GLOBULIN RATIO 0.2 (1.0-2.7); ALKALINE PHOSPHATASE 69 U/L (46-116); ANION GAP 10 mmol/L (5-15); ASPARTATE AMINO TRANSFERASE 14 U/L (15-37); BILIRUBIN,TOTAL 0.2 MG/DL (0.2-1.0); BLOOD UREA NITROGEN 31 mg/dL (7-18); CALCIUM 8.3 MG/DL (8.5-10.1); CARBON DIOXIDE 23 MMOL/L (21-32); CHLORIDE 113 MMOL/L (98-107); CREATININE 1.2 MG/DL (0.55-1.30); PHOSPHORUS 2.7 MG/DL (2.5-4.9); POTASSIUM 3.7 MMOL/L (3.5-5.1); SODIUM 146 MMOL/L (136-145)
--- NOTE | 2018-12-24 08:45 | General Progress Note ---
Assessment/Plan Problem List: (1) Colostomy status ICD Codes: Z93.3 - Colostomy status SNOMED: 91484630, 836390247, 694948098 (2) PEG (percutaneous endoscopic gastrostomy) status ICD Codes: Z93.1 - Gastrostomy status SNOMED: 022825258, 983750929 (3) Anemia ICD Codes: D64.9 - Anemia, unspecified SNOMED: 462005780 (4) Respiratory failure with hypoxia ICD Codes: J96.91 - Respiratory failure, unspecified with hypoxia SNOMED: 37602732755229118, 321576375 Qualifiers: Qualified Codes: J96.01 - Acute respiratory failure with hypoxia Status: stable, progressing Assessment/Plan: respiratory failure sepsis ARF G Tube dependent colostomy dependent GTF anemia work up OB stool r/o GI bleed pending read monitor H&H, prn transfusions bowel regimen ppi electrolyte correction fu labs GI procedures only if emergent Subjective ROS Limited/Unobtainable: No Allergies: Coded Allergies: ALLOPURINOL (Verified Allergy, Unknown, 12/20/18) Objective Last 24 Hour Vital Signs Date Time Temp Pulse Resp B/P (MAP) Pulse Ox O2 Delivery O2 Flow Rate FiO2 12/24/18 08:00 Mechanical Ventilator 12/24/18 08:00 40 12/24/18 08:00 98.5 74 19 135/64 (87) 100 12/24/18 07:12 67 17 40 12/24/18 07:00 61 17 147/61 (89) 100 12/24/18 06:00 71 21 148/56 (86) 100 12/24/18 05:00 69 19 148/49 (82) 100 12/24/18 04:52 71 21 40 12/24/18 04:00 Mechanical Ventilator 12/24/18 04:00 61 12/24/18 04:00 98.6 80 20 148/68 (94) 100 12/24/18 04:00 40 12/24/18 03:00 72 17 131/85 (100) 100 12/24/18 02:55 80 18 40 12/24/18 02:00 71 17 125/72 (89) 100 12/24/18 01:01 81 22 40 12/24/18 01:00 83 23 147/79 (101) 100 12/24/18 00:00 65 12/24/18 00:00 Mechanical Ventilator 12/24/18 00:00 40 12/24/18 00:00 98.0 69 17 129/70 (89) 100 12/23/18 23:00 67 17 104/57 (73) 100 12/23/18 22:34 82 18 40 12/23/18 22:00 74 19 109/58 (75) 100 12/23/18 21:00 85 21 143/69 (93) 100 12/23/18 20:55 78 18 40 12/23/18 20:00 40 12/23/18 20:00 Mechanical Ventilator 12/23/18 20:00 77 12/23/18 20:00 98.2 78 17 118/63 (81) 100 12/23/18 19:00 78 22 139/57 (84) 100 12/23/18 18:55 80 19 40 12/23/18 18:00 72 17 107/67 (80) 100 12/23/18 17:00 72 18 133/58 (83) 100 12/23/18 16:41 67 21 40 12/23/18 16:00 98.3 74 18 128/62 (84) 100 12/23/18 16:00 67 12/23/18 16:00 40 12/23/18 16:00 Mechanical Ventilator 12/23/18 15:14 77 19 40 12/23/18 15:00 74 17 115/69 (84) 100 12/23/18 14:00 73 17 112/58 (76) 100 12/23/18 13:17 63 17 40 12/23/18 13:00 74 17 124/64 (84) 100 12/23/18 12:00 98.1 79 20 145/67 (93) 100 12/23/18 12:00 Mechanical Ventilator 12/23/18 12:00 40 12/23/18 12:00 79 12/23/18 11:10 76 21 40 12/23/18 11:00 73 13 109/69 (82) 96 12/23/18 10:00 75 14 98/65 (76) 96 12/23/18 09:34 100 12/23/18 09:11 76 21 40 12/23/18 09:00 83 13 114/90 (98) 96 Intake and Output 12/23/18 12/24/18 19:00 07:00 Intake Total 1439.208 ml 1135 ml Output Total 1025 ml 845 ml Balance 414.208 ml 290 ml Intake Free Water 200 ml 180 ml IV Total 849.208 ml 495 ml Tube Feeding 360 ml 460 ml Other 30 ml Output Urine Total 850 ml 745 ml Stool Total 175 ml 100 ml Laboratory Tests 12/23/18 09:05: Arterial Blood pH 7.416, Arterial Blood Partial Pressure CO2 32.5L, Arterial Blood Partial Pressure O2 106.7H, Arterial Blood HCO3 20.4L, Arterial Blood Oxygen Saturation 97.7, Arterial Blood Base Excess -3.4L, Brock Test Positive 12/24/18 05:30: White Blood Count 11.2H, Red Blood Count 3.47L, Hemoglobin 9.5L, Hematocrit 29.3L, Mean Corpuscular Volume 84, Mean Corpuscular Hemoglobin 27.3, Mean Corpuscular Hemoglobin Concent 32.3, Red Cell Distribution Width 15.1H, Platelet Count 208, Mean Platelet Volume 8.2, Neutrophils (%) (Auto) 75.9H, Lymphocytes (%) (Auto) 20.5, Monocytes (%) (Auto) 2.3, Eosinophils (%) (Auto) 1.1, Basophils (%) (Auto) 0.3, Sodium Level 146H, Potassium Level 3.7, Chloride Level 113H, Carbon Dioxide Level 23, Anion Gap 10, Blood Urea Nitrogen 31H, Creatinine 1.2, Estimat Glomerular Filtration Rate , Glucose Level 114H, Calcium Level 8.3L, Phosphorus Level 2.7, Magnesium Level 1.8, Total Bilirubin 0.2, Aspartate Amino Transf (AST/SGOT) 14L, Alanine Aminotransferase (ALT/SGPT) 18, Alkaline Phosphatase 69, C-Reactive Protein, Quantitative 19.2H, Pro-B-Type Natriuretic Peptide 7587H, Total Protein 7.0, Albumin 1.4L, Globulin 5.6, Albumin/Globulin Ratio 0.2L Height (Feet): 5 Height (Inches): 6.00 Weight (Pounds): 207 General Appearance: lethargic EENT: normal ENT inspection Neck: supple Cardiovascular: normal rate Respiratory/Chest: decreased breath sounds Abdomen: normal bowel sounds, non tender, soft Extremities: non-tender Horacio Vora MD Dec 24, 2018 08:44
[2018-12-24] MEDS: Vancomycin 1gm/D5W 275ml IVPB SCH ×2 (09:25)
[2018-12-24] MEDS: Levemir Flexpen SUBQ SCH ×2 (09:29→17:29)
--- NOTE | 2018-12-24 10:54 | Nephrology Progress Note ---
Assessment/Plan Problem List: (1) Renal failure (ARF), acute on chronic (2) Sepsis (3) Severe dehydration (4) Hyperglycemia due to type 2 diabetes mellitus (5) Hypotension (6) Respiratory failure with hypoxia (7) Anemia (8) PEG (percutaneous endoscopic gastrostomy) status (9) Colostomy status Assessment Acute renal failure- Multifactorial, Pre Renal on Renal DM OOC Respiratory failure, acute- on Vent in ICU sepsis / Shock sacral ulcer hypernatremia due to water deficit severe protein calorie malnutrition and hypoalbuminemia hypoxemia, severe PEG COlostomy Severe Anemia underlying Plan fluids- k , Phos , Mag supplement as needed water via GT antibiotics pressors pulm support 1.5 Units PRBCs transfused 12/20 feeding monitor renal parameters Subjective ROS Limited/Unobtainable: Yes Objective Objective Last 24 Hour Vital Signs Date Time Temp Pulse Resp B/P (MAP) Pulse Ox O2 Delivery O2 Flow Rate FiO2 12/24/18 09:00 100 12/24/18 08:58 85 24 40 40 12/24/18 08:49 71 25 40 40 12/24/18 08:00 Mechanical Ventilator 12/24/18 08:00 40 12/24/18 08:00 98.5 74 19 135/64 (87) 100 12/24/18 07:12 67 17 40 12/24/18 07:00 61 17 147/61 (89) 100 12/24/18 06:00 71 21 148/56 (86) 100 12/24/18 05:00 69 19 148/49 (82) 100 12/24/18 04:52 71 21 40 12/24/18 04:00 Mechanical Ventilator 12/24/18 04:00 61 12/24/18 04:00 98.6 80 20 148/68 (94) 100 12/24/18 04:00 40 12/24/18 03:00 72 17 131/85 (100) 100 12/24/18 02:55 80 18 40 12/24/18 02:00 71 17 125/72 (89) 100 12/24/18 01:01 81 22 40 12/24/18 01:00 83 23 147/79 (101) 100 12/24/18 00:00 65 12/24/18 00:00 Mechanical Ventilator 12/24/18 00:00 40 12/24/18 00:00 98.0 69 17 129/70 (89) 100 12/23/18 23:00 67 17 104/57 (73) 100 12/23/18 22:34 82 18 40 12/23/18 22:00 74 19 109/58 (75) 100 12/23/18 21:00 85 21 143/69 (93) 100 12/23/18 20:55 78 18 40 12/23/18 20:00 40 12/23/18 20:00 Mechanical Ventilator 12/23/18 20:00 77 12/23/18 20:00 98.2 78 17 118/63 (81) 100 12/23/18 19:00 78 22 139/57 (84) 100 12/23/18 18:55 80 19 40 12/23/18 18:00 72 17 107/67 (80) 100 12/23/18 17:00 72 18 133/58 (83) 100 12/23/18 16:41 67 21 40 12/23/18 16:00 98.3 74 18 128/62 (84) 100 12/23/18 16:00 67 12/23/18 16:00 40 12/23/18 16:00 Mechanical Ventilator 12/23/18 15:14 77 19 40 12/23/18 15:00 74 17 115/69 (84) 100 12/23/18 14:00 73 17 112/58 (76) 100 12/23/18 13:17 63 17 40 12/23/18 13:00 74 17 124/64 (84) 100 12/23/18 12:00 98.1 79 20 145/67 (93) 100 12/23/18 12:00 Mechanical Ventilator 12/23/18 12:00 40 12/23/18 12:00 79 12/23/18 11:10 76 21 40 12/23/18 11:00 73 13 109/69 (82) 96 Intake and Output 12/23/18 12/24/18 19:00 07:00 Intake Total 1439.208 ml 1135 ml Output Total 1025 ml 845 ml Balance 414.208 ml 290 ml Intake Free Water 200 ml 180 ml IV Total 849.208 ml 495 ml Tube Feeding 360 ml 460 ml Other 30 ml Output Urine Total 850 ml 745 ml Stool Total 175 ml 100 ml Laboratory Tests 12/24/18 05:30: White Blood Count 11.2H, Red Blood Count 3.47L, Hemoglobin 9.5L, Hematocrit 29.3L, Mean Corpuscular Volume 84, Mean Corpuscular Hemoglobin 27.3, Mean Corpuscular Hemoglobin Concent 32.3, Red Cell Distribution Width 15.1H, Platelet Count 208, Mean Platelet Volume 8.2, Neutrophils (%) (Auto) 75.9H, Lymphocytes (%) (Auto) 20.5, Monocytes (%) (Auto) 2.3, Eosinophils (%) (Auto) 1.1, Basophils (%) (Auto) 0.3, Sodium Level 146H, Potassium Level 3.7, Chloride Level 113H, Carbon Dioxide Level 23, Anion Gap 10, Blood Urea Nitrogen 31H, Creatinine 1.2, Estimat Glomerular Filtration Rate , Glucose Level 114H, Calcium Level 8.3L, Phosphorus Level 2.7, Magnesium Level 1.8, Total Bilirubin 0.2, Aspartate Amino Transf (AST/SGOT) 14L, Alanine Aminotransferase (ALT/SGPT) 18, Alkaline Phosphatase 69, C-Reactive Protein, Quantitative 19.2H, Pro-B-Type Natriuretic Peptide 7587H, Total Protein 7.0, Albumin 1.4L, Globulin 5.6, Albumin/Globulin Ratio 0.2L Height (Feet): 5 Height (Inches): 6.00 Weight (Pounds): 207 General Appearance: no apparent distress EENT: other - vented Cardiovascular: normal rate Respiratory/Chest: decreased breath sounds Abdomen: distended Servando Cifuentes MD Dec 24, 2018 10:54
--- NOTE | 2018-12-24 12:10 | Critical Care Progress Note ---
Assessment/Plan Assessment/Plan Respiratory failure, acute sepsis hypotension sacral ulcer hypernatremia acute renal failure severe protein calorie malnutrition hypoxemia, severe hypercapnia possible pneumonia possible demand ischemia PLAN care noted an reviewed on vent hypoxemia- still significant PEEP as needed monitor AC rate monitor acid base antibiotics and cultures noted and reviewed hydration with caution supportive care try to wean if able this weekend supportive care ICU care as is nutrition medications/laboratory data/nursing notes/ICU care reviewed in detail note reviewed and edited care discussed with RN and RT ICU time spent 40 minutes Critical Care - Subjective Interval Events: care noted on oxygen ROS Limited/Unobtainable: Yes Condition: critical EKG Rhythm: Sinus Rhythm I&O: Intake and Output 12/23/18 12/24/18 19:00 07:00 Intake Total 1439.208 ml 1175 ml Output Total 1025 ml 845 ml Balance 414.208 ml 330 ml Intake Free Water 200 ml 180 ml IV Total 849.208 ml 535 ml Tube Feeding 360 ml 460 ml Other 30 ml Output Urine Total 850 ml 745 ml Stool Total 175 ml 100 ml Critical Care - Objective ET-Tube: 7.5 ET Position: 23 Last 24 Hour Vital Signs Date Time Temp Pulse Resp B/P (MAP) Pulse Ox O2 Delivery O2 Flow Rate FiO2 12/24/18 11:13 78 24 40 12/24/18 11:00 69 20 159/77 (104) 100 12/24/18 10:00 67 21 143/56 (85) 100 12/24/18 09:00 60 20 159/77 (104) 100 12/24/18 09:00 100 12/24/18 08:58 85 24 40 40 12/24/18 08:49 71 25 40 40 12/24/18 08:00 Mechanical Ventilator 12/24/18 08:00 40 12/24/18 08:00 65 12/24/18 08:00 98.5 74 19 135/64 (87) 100 12/24/18 07:12 67 17 40 12/24/18 07:00 61 17 147/61 (89) 100 12/24/18 06:00 71 21 148/56 (86) 100 12/24/18 05:00 69 19 148/49 (82) 100 12/24/18 04:52 71 21 40 12/24/18 04:00 Mechanical Ventilator 12/24/18 04:00 61 12/24/18 04:00 98.6 80 20 148/68 (94) 100 12/24/18 04:00 40 12/24/18 03:00 72 17 131/85 (100) 100 12/24/18 02:55 80 18 40 12/24/18 02:00 71 17 125/72 (89) 100 12/24/18 01:01 81 22 40 12/24/18 01:00 83 23 147/79 (101) 100 12/24/18 00:00 65 12/24/18 00:00 Mechanical Ventilator 12/24/18 00:00 40 12/24/18 00:00 98.0 69 17 129/70 (89) 100 12/23/18 23:00 67 17 104/57 (73) 100 12/23/18 22:34 82 18 40 12/23/18 22:00 74 19 109/58 (75) 100 12/23/18 21:00 85 21 143/69 (93) 100 12/23/18 20:55 78 18 40 12/23/18 20:00 40 12/23/18 20:00 Mechanical Ventilator 12/23/18 20:00 77 12/23/18 20:00 98.2 78 17 118/63 (81) 100 12/23/18 19:00 78 22 139/57 (84) 100 12/23/18 18:55 80 19 40 12/23/18 18:00 72 17 107/67 (80) 100 12/23/18 17:00 72 18 133/58 (83) 100 12/23/18 16:41 67 21 40 12/23/18 16:00 98.3 74 18 128/62 (84) 100 12/23/18 16:00 67 12/23/18 16:00 40 12/23/18 16:00 Mechanical Ventilator 12/23/18 15:14 77 19 40 12/23/18 15:00 74 17 115/69 (84) 100 12/23/18 14:00 73 17 112/58 (76) 100 12/23/18 13:17 63 17 40 12/23/18 13:00 74 17 124/64 (84) 100 Objective: Sp02 EP Interpretation: reviewed, normal General Appearance: normal inspection, well appearing, no apparent distress, sedated Head: normocephalic, atraumatic Eyes: bilateral eye normal inspection ENT: oral ETT Neck: normal inspection, full range of motion, supple, no meningismus, carotid 2+ Respiratory: decreased breath sounds, moderate breath sounds with some rhonchi left Cardiovascular #1: regular rhythm, no murmur without MRG; Gastrointestinal: non tender, soft, non-distended, no guarding, no rebound Musculoskeletal: no CCE Neurologic: sedated reviewed and edited Micro: Microbiology Date/Time Source Procedure Growth Status 12/21/18 13:30 Blood Blood Culture - Preliminary NO GROWTH Resulted Accucheck: 135 Juan Flanagan MD Dec 24, 2018 12:10
[2018-12-24] MEDS ORDERED: Tubing IV Secondary IV ONE ×2 (13:09→13:10)
[2018-12-24] MEDS ORDERED: NS 275ml ONE ×2 (13:09→13:10)
--- NOTE | 2018-12-24 13:52 | Surgery Progress Note ---
Surgery Progress Note Subjective Additional Comments Still remains intensive care unit in ill-appearing condition. No acute overnight events. Leukocytosis improved. Labs noted. Chest x-ray noted. Objective Last 24 Hour Vital Signs Date Time Temp Pulse Resp B/P (MAP) Pulse Ox O2 Delivery O2 Flow Rate FiO2 12/24/18 13:10 58 17 134/54 (80) 100 12/24/18 12:34 79 24 40 12/24/18 12:00 40 12/24/18 12:00 98.8 59 18 134/54 (80) 100 12/24/18 12:00 Mechanical Ventilator 12/24/18 11:13 78 24 40 12/24/18 11:00 69 20 159/77 (104) 100 12/24/18 10:00 67 21 143/56 (85) 100 12/24/18 09:00 60 20 159/77 (104) 100 12/24/18 09:00 100 12/24/18 08:58 85 24 40 40 12/24/18 08:49 71 25 40 40 12/24/18 08:00 Mechanical Ventilator 12/24/18 08:00 40 12/24/18 08:00 65 12/24/18 08:00 98.5 74 19 135/64 (87) 100 12/24/18 07:12 67 17 40 12/24/18 07:00 61 17 147/61 (89) 100 12/24/18 06:00 71 21 148/56 (86) 100 12/24/18 05:00 69 19 148/49 (82) 100 12/24/18 04:52 71 21 40 12/24/18 04:00 Mechanical Ventilator 12/24/18 04:00 61 12/24/18 04:00 98.6 80 20 148/68 (94) 100 12/24/18 04:00 40 12/24/18 03:00 72 17 131/85 (100) 100 12/24/18 02:55 80 18 40 12/24/18 02:00 71 17 125/72 (89) 100 12/24/18 01:01 81 22 40 12/24/18 01:00 83 23 147/79 (101) 100 12/24/18 00:00 65 12/24/18 00:00 Mechanical Ventilator 12/24/18 00:00 40 12/24/18 00:00 98.0 69 17 129/70 (89) 100 12/23/18 23:00 67 17 104/57 (73) 100 12/23/18 22:34 82 18 40 12/23/18 22:00 74 19 109/58 (75) 100 12/23/18 21:00 85 21 143/69 (93) 100 12/23/18 20:55 78 18 40 12/23/18 20:00 40 12/23/18 20:00 Mechanical Ventilator 12/23/18 20:00 77 12/23/18 20:00 98.2 78 17 118/63 (81) 100 12/23/18 19:00 78 22 139/57 (84) 100 12/23/18 18:55 80 19 40 12/23/18 18:00 72 17 107/67 (80) 100 12/23/18 17:00 72 18 133/58 (83) 100 12/23/18 16:41 67 21 40 12/23/18 16:00 98.3 74 18 128/62 (84) 100 12/23/18 16:00 67 12/23/18 16:00 40 12/23/18 16:00 Mechanical Ventilator 12/23/18 15:14 77 19 40 12/23/18 15:00 74 17 115/69 (84) 100 12/23/18 14:00 73 17 112/58 (76) 100 I&O Intake and Output 12/23/18 12/24/18 19:00 07:00 Intake Total 1439.208 ml 1175 ml Output Total 1025 ml 845 ml Balance 414.208 ml 330 ml Intake Free Water 200 ml 180 ml IV Total 849.208 ml 535 ml Tube Feeding 360 ml 460 ml Other 30 ml Output Urine Total 850 ml 745 ml Stool Total 175 ml 100 ml Dressing: saturated Wound: other Drains: other Cardiovascular: RSR Respiratory: decreased breath sounds Abdomen: soft, other, decreased bowel sounds Extremities: no cyanosis, other Laboratory Tests Test 12/24/18 05:30 12/24/18 10:50 White Blood Count 11.2 K/UL (4.8-10.8) H Red Blood Count 3.47 M/UL (4.20-5.40) L Hemoglobin 9.5 G/DL (12.0-16.0) L Hematocrit 29.3 % (37.0-47.0) L Mean Corpuscular Volume 84 FL (80-99) Mean Corpuscular Hemoglobin 27.3 PG (27.0-31.0) Mean Corpuscular Hemoglobin Concent 32.3 G/DL (32.0-36.0) Red Cell Distribution Width 15.1 % (11.6-14.8) H Platelet Count 208 K/UL (150-450) Mean Platelet Volume 8.2 FL (6.5-10.1) Neutrophils (%) (Auto) 75.9 % (45.0-75.0) H Lymphocytes (%) (Auto) 20.5 % (20.0-45.0) Monocytes (%) (Auto) 2.3 % (1.0-10.0) Eosinophils (%) (Auto) 1.1 % (0.0-3.0) Basophils (%) (Auto) 0.3 % (0.0-2.0) Sodium Level 146 MMOL/L (136-145) H Potassium Level 3.7 MMOL/L (3.5-5.1) Chloride Level 113 MMOL/L (98-107) H Carbon Dioxide Level 23 MMOL/L (21-32) Anion Gap 10 mmol/L (5-15) Blood Urea Nitrogen 31 mg/dL (7-18) H Creatinine 1.2 MG/DL (0.55-1.30) Estimat Glomerular Filtration Rate mL/min (>60) Glucose Level 114 MG/DL (74-106) H Calcium Level 8.3 MG/DL (8.5-10.1) L Phosphorus Level 2.7 MG/DL (2.5-4.9) Magnesium Level 1.8 MG/DL (1.8-2.4) Total Bilirubin 0.2 MG/DL (0.2-1.0) Aspartate Amino Transf (AST/SGOT) 14 U/L (15-37) L Alanine Aminotransferase (ALT/SGPT) 18 U/L (12-78) Alkaline Phosphatase 69 U/L (46-116) C-Reactive Protein, Quantitative 19.2 mg/dL (0.00-0.90) H Pro-B-Type Natriuretic Peptide 7587 pg/mL (0-125) H Total Protein 7.0 G/DL (6.4-8.2) Albumin 1.4 G/DL (3.4-5.0) L Globulin 5.6 g/dL Albumin/Globulin Ratio 0.2 (1.0-2.7) L Arterial Blood pH 7.435 (7.350-7.450) Arterial Blood Partial Pressure CO2 32.1 mmHg (35.0-45.0) L Arterial Blood Partial Pressure O2 149.2 mmHg (75.0-100.0) H Arterial Blood HCO3 21.1 mmol/L (22.0-26.0) L Arterial Blood Oxygen Saturation 98.5 % (95-100) Arterial Blood Base Excess -2.5 (-2-2) L Brock Test Positive Plan Problems: (1) Sepsis Assessment & Plan: cont current ICU care and management Cont IV abx trend labs (2) Severe dehydration (3) Anemia, chronic disease (4) HCAP (healthcare-associated pneumonia) (5) Sacral decubitus ulcer, stage IV Assessment & Plan: Pt presented on admission with full thickness Sacral Pressure Injury with undermining. Bone is palpable. Base of has beefy red granulation with scattered small purple areas. No odor noted .Scant serous exudate noted . Edges pink and flat. (L)13cm x (W)14cm x (D)5.6cm,[id number] 4 by 4cm @11o'clock. DTPI noted to lateral R foot. .Base of wound purple and fluctuant in center with surrounding maroon discoloration (L)1.5cm x (W)1cm. Non-blanchable erythema with fluctuance noted to posterior and medial R heel. L heel boggy but blanchable. Tx.Plan: Cleanse Sacral wound with Saline. Loosely pack with Hydrogel Impregnated Kerlix. Cover with ABD pads and secure with Paper Tape or Tegaderm Daily and prn. Apply Cavilon Skin Barrier to R and Heel and lateral R heel. Ciover with Optifoam drsg. Change every 7 days and PRN. Apply Cavilon Skin Barrier to L heel. Cover with Optifoam drsg. Change every 7 days and prn. APM/VIJI Mattress Overlay. Reposition at least every 2hours or as tolerated. Off-load heels with Pillow. (6) Hyperglycemia due to type 2 diabetes mellitus (7) Acute metabolic encephalopathy (8) Hypotension (9) ARF (acute renal failure) (10) Respiratory failure with hypoxia Mauro Morrow Dec 24, 2018 13:52
--- NOTE | 2018-12-24 14:57 | Hematology/Onc Progress Note ---
Assessment/Plan Assessment/Plan Assessment and Recs: # Anemia of chronic disease due to underlying chronic medical issues, multifactorial , ferritin 366, tibc 144 --> Anemia workup has been reviewed, rule out gi bleed --> No evidence of hemolysis is noted, peripheral smear has been reviewed. --> Hgb goal >7. Transfuse prn. --> Epogen or iron at this time is not particularly indicated --> Medications have been reviewed --> low threshold for gi evaluation in case has occult + --> Hgb trend: 9.3-->9.5 # Recanalized dvt of the right lower extremity --> given it has healed/recanalzied, is not acute okay for just heparin prophylactic dosing --> continue heparin sq bid dosing # Leukocytosis/elevated white blood cell count, is due to underlying sepsis urine infection+ --> Currently improving/trending downwards --> ID is following, appreciate recs --> have reviewed peripheral smear and bandemia/neutrophilia noted --> continue antibiotics per ID --> monitor for resolution --> trend 15-->24-->21k-->17.4-->11.2 # Respiratory failure with hypoxia --> s/p vent placement intubated 12/20/18, --> pulm eval # Sacral decubitus ulcer, stage IV --> per surg # HCAP (healthcare-associated pneumonia) # ARF (acute renal failure) --> per renal # Hyperglycemia due to type 2 diabetes mellitus # Acute metabolic encephalopathy # Severe dehydration The timing of this note does not necessarily reflect the time of the patient was seen. GREATLY APPRECIATE CONSULTATION. Subjective Hematologic/Lymphatic: Reports: anemia Allergies: Coded Allergies: ALLOPURINOL (Verified Allergy, Unknown, 12/20/18) Subjective 12/21: no events, on abx, with pressor 12/22: Pt to start weaning off of vent. Remains on abx. CBC reviewed. 12/24: Prssor prn for HR <50. H/H stable. WBC improved. Objective Objective Current Medications Medications (Trade) Dose Ordered Sig/Nora Route PRN Reason Start Time Stop Time Status Last Admin Dose Admin Acetaminophen (Tylenol) 650 mg Q4H PRN ORAL Mild Pain/Temp > 100.5 12/20/18 06:30 01/19/19 06:29 12/23/18 20:58 Chlorhexidine Gluconate (Valentina-Hex 2%) 1 applic DAILY@2000 TOPIC 12/22/18 20:00 01/21/19 19:59 12/23/18 20:47 Dextrose 1,000 ml @ 40 mls/hr Q24H IV 12/22/18 14:37 01/21/19 14:36 12/23/18 13:41 Dextrose (Dextrose 50%) 25 ml Q30M PRN IV Hypoglycemia 12/20/18 19:00 01/19/19 18:59 Dextrose (Dextrose 50%) 50 ml Q30M PRN IV Hypoglycemia 12/20/18 19:00 01/19/19 18:59 Insulin Aspart (NovoLOG) Q6HR SUBQ 12/20/18 12:00 01/19/19 11:59 12/24/18 12:04 Insulin Detemir (Levemir) 15 units BID SUBQ 12/21/18 09:00 01/20/19 08:59 12/24/18 09:29 Lansoprazole (Prevacid) 30 mg BID GT 12/20/18 18:00 01/20/19 08:59 12/24/18 09:25 Lorazepam (Ativan 2mg/ml 1ml) 1 mg Q3H PRN IV For Anxiety 12/22/18 09:00 12/29/18 08:59 12/22/18 16:07 Meropenem 1 gm/ Sodium Chloride 55 ml @ 110 mls/hr Q12HR@0100,1300 IVPB 12/21/18 13:00 12/26/18 12:59 12/24/18 12:56 Norepinephrine Bitartrate 4 mg/ Dextrose 250 ml @ 0 mls/hr Q24H IV 12/20/18 07:00 01/19/19 06:59 12/20/18 18:25 Vancomycin HCl (Vanco rx to dose) 1 ea DAILY PRN MISC Per rx protocol 12/20/18 11:00 01/19/19 10:59 Vancomycin HCl 1 gm/Dextrose 275 ml @ 183.708 mls/hr Q24H IVPB 12/24/18 09:00 12/29/18 08:59 12/24/18 09:25 Last 24 Hour Vital Signs Date Time Temp Pulse Resp B/P (MAP) Pulse Ox O2 Delivery O2 Flow Rate FiO2 12/24/18 14:39 57 15 40 12/24/18 13:10 58 17 134/54 (80) 100 12/24/18 12:34 79 24 40 12/24/18 12:00 40 12/24/18 12:00 98.8 59 18 134/54 (80) 100 12/24/18 12:00 Mechanical Ventilator 12/24/18 11:13 78 24 40 12/24/18 11:00 69 20 159/77 (104) 100 12/24/18 10:00 67 21 143/56 (85) 100 12/24/18 09:00 60 20 159/77 (104) 100 12/24/18 09:00 100 12/24/18 08:58 85 24 40 40 12/24/18 08:49 71 25 40 40 12/24/18 08:00 Mechanical Ventilator 12/24/18 08:00 40 12/24/18 08:00 65 12/24/18 08:00 98.5 74 19 135/64 (87) 100 12/24/18 07:12 67 17 40 12/24/18 07:00 61 17 147/61 (89) 100 12/24/18 06:00 71 21 148/56 (86) 100 12/24/18 05:00 69 19 148/49 (82) 100 12/24/18 04:52 71 21 40 12/24/18 04:00 Mechanical Ventilator 12/24/18 04:00 61 12/24/18 04:00 98.6 80 20 148/68 (94) 100 12/24/18 04:00 40 12/24/18 03:00 72 17 131/85 (100) 100 12/24/18 02:55 80 18 40 12/24/18 02:00 71 17 125/72 (89) 100 12/24/18 01:01 81 22 40 12/24/18 01:00 83 23 147/79 (101) 100 12/24/18 00:00 65 12/24/18 00:00 Mechanical Ventilator 12/24/18 00:00 40 12/24/18 00:00 98.0 69 17 129/70 (89) 100 12/23/18 23:00 67 17 104/57 (73) 100 12/23/18 22:34 82 18 40 12/23/18 22:00 74 19 109/58 (75) 100 12/23/18 21:00 85 21 143/69 (93) 100 12/23/18 20:55 78 18 40 12/23/18 20:00 40 12/23/18 20:00 Mechanical Ventilator 12/23/18 20:00 77 12/23/18 20:00 98.2 78 17 118/63 (81) 100 12/23/18 19:00 78 22 139/57 (84) 100 12/23/18 18:55 80 19 40 12/23/18 18:00 72 17 107/67 (80) 100 12/23/18 17:00 72 18 133/58 (83) 100 12/23/18 16:41 67 21 40 12/23/18 16:00 98.3 74 18 128/62 (84) 100 12/23/18 16:00 67 12/23/18 16:00 40 12/23/18 16:00 Mechanical Ventilator 12/23/18 15:14 77 19 40 12/23/18 15:00 74 17 115/69 (84) 100 12/23/18 14:00 73 17 112/58 (76) 100 12/23/18 13:17 63 17 40 12/23/18 13:00 74 17 124/64 (84) 100 12/23/18 12:00 98.1 79 20 145/67 (93) 100 12/23/18 12:00 Mechanical Ventilator 12/23/18 12:00 40 12/23/18 12:00 79 12/23/18 11:10 76 21 40 12/23/18 11:00 73 13 109/69 (82) 96 12/23/18 10:00 75 14 98/65 (76) 96 12/23/18 09:34 100 12/23/18 09:11 76 21 40 12/23/18 09:00 83 13 114/90 (98) 96 12/23/18 08:01 90 26 40 12/23/18 08:00 75 14 110/58 (75) 97 12/23/18 08:00 Mechanical Ventilator 12/23/18 08:00 77 12/23/18 08:00 40 12/23/18 07:00 75 13 108/60 (76) 97 12/23/18 07:00 121/65 12/23/18 06:00 90 26 107/62 (77) 100 12/23/18 05:00 81 25 133/67 (89) 100 12/23/18 04:40 80 24 40 12/23/18 04:00 40 12/23/18 04:00 Mechanical Ventilator 12/23/18 04:00 99.1 81 19 135/75 (95) 100 12/23/18 03:39 79 12/23/18 03:20 78 19 40 12/23/18 03:00 89 23 127/88 (101) 100 12/23/18 02:00 90 24 113/70 (84) 100 12/23/18 01:00 92 24 113/65 (81) 100 12/23/18 01:00 95 26 40 12/23/18 00:00 40 12/23/18 00:00 Mechanical Ventilator 12/23/18 00:00 98.2 92 25 113/77 (89) 100 12/22/18 23:10 93 22 40 12/22/18 23:05 88 12/22/18 23:00 91 23 112/71 (85) 100 12/22/18 22:00 91 23 121/62 (81) 100 12/22/18 21:00 88 21 40 12/22/18 21:00 88 23 124/68 (86) 100 12/22/18 20:00 Mechanical Ventilator 12/22/18 20:00 99.2 92 25 125/75 (92) 100 12/22/18 20:00 40 12/22/18 19:40 91 12/22/18 19:14 99 26 40 12/22/18 19:00 88 23 105/53 (70) 94 12/22/18 18:00 85 20 121/63 (82) 99 12/22/18 17:00 89 24 40 12/22/18 17:00 93 25 122/57 (78) 97 12/22/18 16:00 Mechanical Ventilator 12/22/18 16:00 90 25 134/59 (84) 100 12/22/18 16:00 40 12/22/18 16:00 91 12/22/18 15:00 99.5 78 24 116/58 (77) 100 Intake and Output 12/23/18 12/24/18 19:00 07:00 Intake Total 1439.208 ml 1175 ml Output Total 1025 ml 845 ml Balance 414.208 ml 330 ml Intake Free Water 200 ml 180 ml IV Total 849.208 ml 535 ml Tube Feeding 360 ml 460 ml Other 30 ml Output Urine Total 850 ml 745 ml Stool Total 175 ml 100 ml Labs Test 12/21/18 15:00 12/22/18 04:30 12/23/18 05:00 12/23/18 09:05 Lactic Acid Level 0.90 mmol/L (0.4-2.0) White Blood Count 17.4 K/UL (4.8-10.8) 13.7 K/UL (4.8-10.8) Red Blood Count 3.20 M/UL (4.20-5.40) 3.45 M/UL (4.20-5.40) Hemoglobin 8.9 G/DL (12.0-16.0) 9.3 G/DL (12.0-16.0) Hematocrit 26.8 % (37.0-47.0) 29.1 % (37.0-47.0) Mean Corpuscular Volume 84 FL (80-99) 84 FL (80-99) Mean Corpuscular Hemoglobin 27.7 PG (27.0-31.0) 27.0 PG (27.0-31.0) Mean Corpuscular Hemoglobin Concent 33.0 G/DL (32.0-36.0) 32.1 G/DL (32.0-36.0) Red Cell Distribution Width 15.4 % (11.6-14.8) 15.3 % (11.6-14.8) Platelet Count 197 K/UL (150-450) 219 K/UL (150-450) Mean Platelet Volume 8.3 FL (6.5-10.1) 8.6 FL (6.5-10.1) Neutrophils (%) (Auto) 78.3 % (45.0-75.0) 80.6 % (45.0-75.0) Lymphocytes (%) (Auto) 18.9 % (20.0-45.0) 17.0 % (20.0-45.0) Monocytes (%) (Auto) 1.2 % (1.0-10.0) 1.4 % (1.0-10.0) Eosinophils (%) (Auto) 1.2 % (0.0-3.0) 0.7 % (0.0-3.0) Basophils (%) (Auto) 0.4 % (0.0-2.0) 0.2 % (0.0-2.0) Sodium Level 143 MMOL/L (136-145) 146 MMOL/L (136-145) Potassium Level 3.3 MMOL/L (3.5-5.1) 3.6 MMOL/L (3.5-5.1) Chloride Level 109 MMOL/L (98-107) 112 MMOL/L (98-107) Carbon Dioxide Level 22 MMOL/L (21-32) 22 MMOL/L (21-32) Anion Gap 12 mmol/L (5-15) 12 mmol/L (5-15) Blood Urea Nitrogen 52 mg/dL (7-18) 37 mg/dL (7-18) Creatinine 1.7 MG/DL (0.55-1.30) 1.4 MG/DL (0.55-1.30) Estimat Glomerular Filtration Rate mL/min (>60) mL/min (>60) Glucose Level 125 MG/DL (74-106) 190 MG/DL (74-106) Uric Acid 5.3 MG/DL (2.6-7.2) 5.2 MG/DL (2.6-7.2) Calcium Level 7.6 MG/DL (8.5-10.1) 8.0 MG/DL (8.5-10.1) Phosphorus Level 3.7 MG/DL (2.5-4.9) 2.9 MG/DL (2.5-4.9) Magnesium Level 1.9 MG/DL (1.8-2.4) 1.8 MG/DL (1.8-2.4) Total Bilirubin 0.2 MG/DL (0.2-1.0) 0.2 MG/DL (0.2-1.0) Gamma Glutamyl Transpeptidase 52 U/L (5-85) Aspartate Amino Transf (AST/SGOT) 20 U/L (15-37) 15 U/L (15-37) Alanine Aminotransferase (ALT/SGPT) 14 U/L (12-78) 16 U/L (12-78) Alkaline Phosphatase 62 U/L (46-116) 68 U/L (46-116) Ammonia 30 umol/L (11-32) C-Reactive Protein, Quantitative 41.1 mg/dL (0.00-0.90) Pro-B-Type Natriuretic Peptide 35463 pg/mL (0-125) Total Protein 6.7 G/DL (6.4-8.2) 7.0 G/DL (6.4-8.2) Albumin 1.4 G/DL (3.4-5.0) 1.4 G/DL (3.4-5.0) Globulin 5.3 g/dL 5.6 g/dL Albumin/Globulin Ratio 0.3 (1.0-2.7) 0.2 (1.0-2.7) Random Vancomycin Level 17.6 ug/mL 18.6 ug/mL Arterial Blood pH 7.416 (7.350-7.450) Arterial Blood Partial Pressure CO2 32.5 mmHg (35.0-45.0) Arterial Blood Partial Pressure O2 106.7 mmHg (75.0-100.0) Arterial Blood HCO3 20.4 mmol/L (22.0-26.0) Arterial Blood Oxygen Saturation 97.7 % (95-100) Arterial Blood Base Excess -3.4 (-2-2) Brock Test Positive Test 12/24/18 05:30 12/24/18 10:50 White Blood Count 11.2 K/UL (4.8-10.8) Red Blood Count 3.47 M/UL (4.20-5.40) Hemoglobin 9.5 G/DL (12.0-16.0) Hematocrit 29.3 % (37.0-47.0) Mean Corpuscular Volume 84 FL (80-99) Mean Corpuscular Hemoglobin 27.3 PG (27.0-31.0) Mean Corpuscular Hemoglobin Concent 32.3 G/DL (32.0-36.0) Red Cell Distribution Width 15.1 % (11.6-14.8) Platelet Count 208 K/UL (150-450) Mean Platelet Volume 8.2 FL (6.5-10.1) Neutrophils (%) (Auto) 75.9 % (45.0-75.0) Lymphocytes (%) (Auto) 20.5 % (20.0-45.0) Monocytes (%) (Auto) 2.3 % (1.0-10.0) Eosinophils (%) (Auto) 1.1 % (0.0-3.0) Basophils (%) (Auto) 0.3 % (0.0-2.0) Sodium Level 146 MMOL/L (136-145) Potassium Level 3.7 MMOL/L (3.5-5.1) Chloride Level 113 MMOL/L (98-107) Carbon Dioxide Level 23 MMOL/L (21-32) Anion Gap 10 mmol/L (5-15) Blood Urea Nitrogen 31 mg/dL (7-18) Creatinine 1.2 MG/DL (0.55-1.30) Estimat Glomerular Filtration Rate mL/min (>60) Glucose Level 114 MG/DL (74-106) Calcium Level 8.3 MG/DL (8.5-10.1) Phosphorus Level 2.7 MG/DL (2.5-4.9) Magnesium Level 1.8 MG/DL (1.8-2.4) Total Bilirubin 0.2 MG/DL (0.2-1.0) Aspartate Amino Transf (AST/SGOT) 14 U/L (15-37) Alanine Aminotransferase (ALT/SGPT) 18 U/L (12-78) Alkaline Phosphatase 69 U/L (46-116) C-Reactive Protein, Quantitative 19.2 mg/dL (0.00-0.90) Pro-B-Type Natriuretic Peptide 7587 pg/mL (0-125) Total Protein 7.0 G/DL (6.4-8.2) Albumin 1.4 G/DL (3.4-5.0) Globulin 5.6 g/dL Albumin/Globulin Ratio 0.2 (1.0-2.7) Arterial Blood pH 7.435 (7.350-7.450) Arterial Blood Partial Pressure CO2 32.1 mmHg (35.0-45.0) Arterial Blood Partial Pressure O2 149.2 mmHg (75.0-100.0) Arterial Blood HCO3 21.1 mmol/L (22.0-26.0) Arterial Blood Oxygen Saturation 98.5 % (95-100) Arterial Blood Base Excess -2.5 (-2-2) Brock Test Positive Height (Feet): 5 Height (Inches): 6.00 Weight (Pounds): 207 Objective Sp02 EP Interpretation: reviewed General Appearance: severe distress, lethargic, Chronically Ill Head: normocephalic, atraumatic Eyes: bilateral eye PERRL, bilateral eye EOMI ENT: dry mucus membranes Neck: full range of motion, supple, no meningismus Respiratory: chest non-tender, respiratory distress, rhonchi. VENT++ Cardiovascular: regular rate, rhythm, no murmur, tachycardia Gastrointestinal: normal bowel sounds, non tender- Reducible abdominal wall hernia. COLOSTOMY+, GT++ Rectal: other - large sacral Stage 4 ulcer Musculoskeletal: back normal, normal range of motion Psychiatric: mood/affect normal Skin: warm/dry Tobin Stover MD Dec 24, 2018 14:57
[2018-12-24] MEDS: Dyna-Hex 2% Top Sol 2oz TOPIC SCH (20:25)
--- NOTE | 2018-12-24 21:11 | General Progress Note ---
Assessment/Plan Problem List: (1) Anemia, chronic disease ICD Codes: D63.8 - Anemia in other chronic diseases classified elsewhere SNOMED: 739169776, 562591921 (2) Severe dehydration ICD Codes: E86.0 - Dehydration SNOMED: 890772449, 700335433 (3) Hyperglycemia due to type 2 diabetes mellitus ICD Codes: E11.65 - Type 2 diabetes mellitus with hyperglycemia SNOMED: 959241553840215, 91723227 Qualifiers: Qualified Codes: E11.65 - Type 2 diabetes mellitus with hyperglycemia; Z79.4 - skilled nursing (current) use of insulin (4) Acute metabolic encephalopathy ICD Codes: G93.41 - Metabolic encephalopathy SNOMED: 74595689, 088200731 (5) Hypotension ICD Codes: I95.9 - Hypotension, unspecified SNOMED: 55140625 (6) ARF (acute renal failure) ICD Codes: N17.9 - Acute kidney failure, unspecified SNOMED: 92623818, 649742973 Qualifiers: Qualified Codes: N17.9 - Acute kidney failure, unspecified (7) Respiratory failure with hypoxia ICD Codes: J96.91 - Respiratory failure, unspecified with hypoxia SNOMED: 13495121807870367, 076590604 Qualifiers: Qualified Codes: J96.01 - Acute respiratory failure with hypoxia (8) Renal failure (ARF), acute on chronic ICD Codes: N17.9 - Acute kidney failure, unspecified; N18.9 - Chronic kidney disease, unspecified SNOMED: 512672694 (9) Anemia ICD Codes: D64.9 - Anemia, unspecified SNOMED: 247113261 Status: stable, progressing Assessment/Plan: resp failure intubated pna.not hypoxic rt to do cpt arf anemia improved sacral decub l no wheezing reviewed chart and labs Subjective ROS Limited/Unobtainable: Yes Allergies: Coded Allergies: ALLOPURINOL (Verified Allergy, Unknown, 12/20/18) Objective Last 24 Hour Vital Signs Date Time Temp Pulse Resp B/P (MAP) Pulse Ox O2 Delivery O2 Flow Rate FiO2 12/24/18 21:00 70 20 129/60 (83) 100 12/24/18 20:00 99.5 65 19 142/58 (86) 100 12/24/18 19:02 68 21 40 12/24/18 19:00 68 19 147/125 (132) 100 12/24/18 18:00 69 19 131/59 (83) 97 12/24/18 17:16 71 22 40 12/24/18 17:00 66 20 137/56 (83) 100 12/24/18 16:00 40 12/24/18 16:00 98.0 69 20 124/69 (87) 100 12/24/18 16:00 61 12/24/18 16:00 Mechanical Ventilator 12/24/18 15:00 65 20 124/59 (80) 100 12/24/18 14:39 57 15 40 12/24/18 14:00 60 17 144/57 (86) 100 12/24/18 13:10 58 17 134/54 (80) 100 12/24/18 12:34 79 24 40 12/24/18 12:00 61 12/24/18 12:00 40 12/24/18 12:00 98.8 59 18 134/54 (80) 100 12/24/18 12:00 Mechanical Ventilator 12/24/18 11:13 78 24 40 12/24/18 11:00 69 20 159/77 (104) 100 12/24/18 10:00 67 21 143/56 (85) 100 12/24/18 09:00 60 20 159/77 (104) 100 12/24/18 09:00 100 12/24/18 08:58 85 24 40 40 12/24/18 08:49 71 25 40 40 12/24/18 08:00 Mechanical Ventilator 12/24/18 08:00 40 12/24/18 08:00 65 12/24/18 08:00 98.5 74 19 135/64 (87) 100 12/24/18 07:12 67 17 40 12/24/18 07:00 61 17 147/61 (89) 100 12/24/18 06:00 71 21 148/56 (86) 100 12/24/18 05:00 69 19 148/49 (82) 100 12/24/18 04:52 71 21 40 12/24/18 04:00 Mechanical Ventilator 12/24/18 04:00 61 12/24/18 04:00 98.6 80 20 148/68 (94) 100 12/24/18 04:00 40 12/24/18 03:00 72 17 131/85 (100) 100 12/24/18 02:55 80 18 40 12/24/18 02:00 71 17 125/72 (89) 100 12/24/18 01:01 81 22 40 12/24/18 01:00 83 23 147/79 (101) 100 12/24/18 00:00 65 12/24/18 00:00 Mechanical Ventilator 12/24/18 00:00 40 12/24/18 00:00 98.0 69 17 129/70 (89) 100 12/23/18 23:00 67 17 104/57 (73) 100 12/23/18 22:34 82 18 40 12/23/18 22:00 74 19 109/58 (75) 100 Intake and Output 12/23/18 12/24/18 19:00 07:00 Intake Total 1439.208 ml 1175 ml Output Total 1025 ml 845 ml Balance 414.208 ml 330 ml Intake Free Water 200 ml 180 ml IV Total 849.208 ml 535 ml Tube Feeding 360 ml 460 ml Other 30 ml Output Urine Total 850 ml 745 ml Stool Total 175 ml 100 ml Laboratory Tests 12/24/18 05:30: White Blood Count 11.2H, Red Blood Count 3.47L, Hemoglobin 9.5L, Hematocrit 29.3L, Mean Corpuscular Volume 84, Mean Corpuscular Hemoglobin 27.3, Mean Corpuscular Hemoglobin Concent 32.3, Red Cell Distribution Width 15.1H, Platelet Count 208, Mean Platelet Volume 8.2, Neutrophils (%) (Auto) 75.9H, Lymphocytes (%) (Auto) 20.5, Monocytes (%) (Auto) 2.3, Eosinophils (%) (Auto) 1.1, Basophils (%) (Auto) 0.3, Sodium Level 146H, Potassium Level 3.7, Chloride Level 113H, Carbon Dioxide Level 23, Anion Gap 10, Blood Urea Nitrogen 31H, Creatinine 1.2, Estimat Glomerular Filtration Rate , Glucose Level 114H, Calcium Level 8.3L, Phosphorus Level 2.7, Magnesium Level 1.8, Total Bilirubin 0.2, Aspartate Amino Transf (AST/SGOT) 14L, Alanine Aminotransferase (ALT/SGPT) 18, Alkaline Phosphatase 69, C-Reactive Protein, Quantitative 19.2H, Pro-B-Type Natriuretic Peptide 7587H, Total Protein 7.0, Albumin 1.4L, Globulin 5.6, Albumin/Globulin Ratio 0.2L 12/24/18 10:50: Arterial Blood pH 7.435, Arterial Blood Partial Pressure CO2 32.1L, Arterial Blood Partial Pressure O2 149.2H, Arterial Blood HCO3 21.1L, Arterial Blood Oxygen Saturation 98.5, Arterial Blood Base Excess -2.5L, Brock Test Positive Height (Feet): 5 Height (Inches): 6.00 Weight (Pounds): 207 Cardiovascular: normal rate Respiratory/Chest: lungs clear Abdomen: soft Danial Walden MD Dec 24, 2018 21:11
[2018-12-25] VITALS (23 sets, daily range): BP systolic 104–159; BP diastolic 50–106
[2018-12-25] MEDS: Meropenem 1 GM in NS 55 ML IVPB SCH (01:33)
[2018-12-25] MEDS: NovoLOG Insulin Flexpen SUBQ SCH ×4 (05:20→17:33)
[2018-12-25 06:18] LABS: BASOPHILS % (AUTO) 0.4 % (0.0-2.0); EOSINOPHILS % (AUTO) 0.9 % (0.0-3.0); HEMATOCRIT 30.6 % (37.0-47.0); HEMOGLOBIN 9.8 G/DL (12.0-16.0); LYMPHOCYTES % (AUTO) 29.5 % (20.0-45.0); MEAN CORPUSCULAR VOLUME 84 FL (80-99); MONOCYTES % (AUTO) 2.9 % (1.0-10.0); NEUTROPHILS % (AUTO) 66.2 % (45.0-75.0); PLATELET COUNT 258 K/UL (150-450); RED BLOOD COUNT 3.63 M/UL (4.20-5.40); RED CELL DISTRIBUTION WIDTH 15.2 % (11.6-14.8); WHITE BLOOD COUNT 12.5 K/UL (4.8-10.8)
[2018-12-25 06:48] LABS: ANION GAP 10 mmol/L (5-15); BLOOD UREA NITROGEN 28 mg/dL (7-18); CALCIUM 8.4 MG/DL (8.5-10.1); CARBON DIOXIDE 24 MMOL/L (21-32); CHLORIDE 111 MMOL/L (98-107); CREATININE 1.1 MG/DL (0.55-1.30); POTASSIUM 3.8 MMOL/L (3.5-5.1); SODIUM 145 MMOL/L (136-145)
--- NOTE | 2018-12-25 07:16 | General Progress Note ---
Assessment/Plan Problem List: (1) Sepsis ICD Codes: A41.9 - Sepsis, unspecified organism SNOMED: 37645362, 237835649 Qualifiers: Qualified Codes: A41.9 - Sepsis, unspecified organism (2) HCAP (healthcare-associated pneumonia) ICD Codes: J18.9 - Pneumonia, unspecified organism SNOMED: 424596729, 200110410 (3) Sacral decubitus ulcer, stage IV ICD Codes: L89.154 - Pressure ulcer of sacral region, stage 4 SNOMED: 190409111, 037517491 (4) Hyperglycemia due to type 2 diabetes mellitus ICD Codes: E11.65 - Type 2 diabetes mellitus with hyperglycemia SNOMED: 503237558869755, 02216953 Qualifiers: Qualified Codes: E11.65 - Type 2 diabetes mellitus with hyperglycemia; Z79.4 - correction (current) use of insulin (5) Acute metabolic encephalopathy ICD Codes: G93.41 - Metabolic encephalopathy SNOMED: 61309200, 097619322 (6) ARF (acute renal failure) ICD Codes: N17.9 - Acute kidney failure, unspecified SNOMED: 81683609, 547967699 Qualifiers: Qualified Codes: N17.9 - Acute kidney failure, unspecified (7) Respiratory failure with hypoxia ICD Codes: J96.91 - Respiratory failure, unspecified with hypoxia SNOMED: 79098712410655509, 033188718 Qualifiers: Qualified Codes: J96.01 - Acute respiratory failure with hypoxia Status: stable, progressing Assessment/Plan: reduce Levemir to 9 units bid continue NISS every 6 hours Subjective ROS Limited/Unobtainable: Yes Allergies: Coded Allergies: ALLOPURINOL (Verified Allergy, Unknown, 12/20/18) Subjective events noted Item Value Date Time Bedside Blood Glucose 105 mg/dl 12/25/18 0600 Bedside Blood Glucose 84 mg/dl 12/25/18 0000 Bedside Blood Glucose 114 mg/dl 12/24/18 1800 Bedside Blood Glucose 135 mg/dl H 12/24/18 1204 Bedside Blood Glucose 111 mg/dl 12/24/18 0600 Bedside Blood Glucose 118 mg/dl 12/24/18 0000 Objective Last 24 Hour Vital Signs Date Time Temp Pulse Resp B/P (MAP) Pulse Ox O2 Delivery O2 Flow Rate FiO2 12/25/18 06:00 99.6 83 20 106/54 (71) 100 12/25/18 05:00 90 23 119/64 (82) 100 12/25/18 05:00 88 19 40 12/25/18 04:00 99.1 88 20 119/62 (81) 100 12/25/18 04:00 74 12/25/18 04:00 40 12/25/18 04:00 Mechanical Ventilator 12/25/18 03:29 89 20 99 Mechanical Ventilator 40 12/25/18 03:15 89 20 40 12/25/18 03:00 79 18 121/65 (83) 100 12/25/18 02:00 82 21 136/62 (86) 100 12/25/18 01:28 81 18 40 12/25/18 01:00 80 20 128/62 (84) 100 12/25/18 00:00 40 12/25/18 00:00 Mechanical Ventilator 12/25/18 00:00 83 12/25/18 00:00 99.3 81 15 125/60 (81) 100 12/24/18 23:22 82 19 40 12/24/18 23:00 77 20 127/65 (85) 100 12/24/18 22:00 68 21 130/71 (90) 100 12/24/18 21:19 73 23 40 12/24/18 21:00 70 20 129/60 (83) 100 12/24/18 20:00 Mechanical Ventilator 12/24/18 20:00 99.5 65 19 142/58 (86) 100 12/24/18 20:00 40 12/24/18 20:00 65 12/24/18 19:02 68 21 40 12/24/18 19:00 68 19 147/125 (132) 100 12/24/18 18:00 69 19 131/59 (83) 97 12/24/18 17:16 71 22 40 12/24/18 17:00 66 20 137/56 (83) 100 12/24/18 16:00 40 12/24/18 16:00 98.0 69 20 124/69 (87) 100 12/24/18 16:00 61 12/24/18 16:00 Mechanical Ventilator 12/24/18 15:00 65 20 124/59 (80) 100 12/24/18 14:39 57 15 40 12/24/18 14:00 60 17 144/57 (86) 100 12/24/18 13:10 58 17 134/54 (80) 100 12/24/18 12:34 79 24 40 12/24/18 12:00 61 12/24/18 12:00 40 12/24/18 12:00 98.8 59 18 134/54 (80) 100 12/24/18 12:00 Mechanical Ventilator 12/24/18 11:13 78 24 40 12/24/18 11:00 69 20 159/77 (104) 100 12/24/18 10:00 67 21 143/56 (85) 100 12/24/18 09:00 60 20 159/77 (104) 100 12/24/18 09:00 100 12/24/18 08:58 85 24 40 40 12/24/18 08:49 71 25 40 40 12/24/18 08:00 Mechanical Ventilator 12/24/18 08:00 40 12/24/18 08:00 65 12/24/18 08:00 98.5 74 19 135/64 (87) 100 Intake and Output 12/24/18 12/25/18 19:00 07:00 Intake Total 1527.4 ml 1090 ml Output Total 1175 ml 465 ml Balance 352.4 ml 625 ml Intake Free Water 200 ml 100 ml IV Total 607.4 ml 550 ml Tube Feeding 480 ml 440 ml Other 240 ml Output Urine Total 1025 ml 465 ml Stool Total 150 ml Laboratory Tests 12/24/18 10:50: Arterial Blood pH 7.435, Arterial Blood Partial Pressure CO2 32.1L, Arterial Blood Partial Pressure O2 149.2H, Arterial Blood HCO3 21.1L, Arterial Blood Oxygen Saturation 98.5, Arterial Blood Base Excess -2.5L, Brock Test Positive 12/25/18 04:00: White Blood Count 12.5H, Red Blood Count 3.63L, Hemoglobin 9.8L, Hematocrit 30.6L, Mean Corpuscular Volume 84, Mean Corpuscular Hemoglobin 27.0, Mean Corpuscular Hemoglobin Concent 32.1, Red Cell Distribution Width 15.2H, Platelet Count 258, Mean Platelet Volume 7.8, Neutrophils (%) (Auto) 66.2, Lymphocytes (%) (Auto) 29.5, Monocytes (%) (Auto) 2.9, Eosinophils (%) (Auto) 0.9, Basophils (%) (Auto) 0.4, Sodium Level 145, Potassium Level 3.8, Chloride Level 111H, Carbon Dioxide Level 24, Anion Gap 10, Blood Urea Nitrogen 28H, Creatinine 1.1, Estimat Glomerular Filtration Rate , Glucose Level 81, Calcium Level 8.4L Height (Feet): 5 Height (Inches): 6.00 Weight (Pounds): 200 General Appearance: severe distress Neck: normal alignment Cardiovascular: tachycardia Respiratory/Chest: decreased breath sounds Abdomen: normal bowel sounds Pelvis: normal external exam Objective Current Medications Medications (Trade) Dose Ordered Sig/Nora Route PRN Reason Start Time Stop Time Status Last Admin Dose Admin Acetaminophen (Tylenol) 650 mg Q4H PRN ORAL Mild Pain/Temp > 100.5 12/20/18 06:30 01/19/19 06:29 12/23/18 20:58 Chlorhexidine Gluconate (Valentina-Hex 2%) 1 applic DAILY@2000 TOPIC 12/22/18 20:00 01/21/19 19:59 12/24/18 20:25 Dextrose 1,000 ml @ 40 mls/hr Q24H IV 12/22/18 14:37 01/21/19 14:36 12/24/18 15:54 Dextrose (Dextrose 50%) 25 ml Q30M PRN IV Hypoglycemia 12/20/18 19:00 01/19/19 18:59 Dextrose (Dextrose 50%) 50 ml Q30M PRN IV Hypoglycemia 12/20/18 19:00 01/19/19 18:59 Insulin Aspart (NovoLOG) Q6HR SUBQ 12/20/18 12:00 01/19/19 11:59 12/24/18 17:30 Insulin Detemir (Levemir) 15 units BID SUBQ 12/21/18 09:00 01/20/19 08:59 12/24/18 17:29 Lansoprazole (Prevacid) 30 mg BID GT 12/20/18 18:00 01/20/19 08:59 12/24/18 17:27 Lorazepam (Ativan 2mg/ml 1ml) 1 mg Q3H PRN IV For Anxiety 12/22/18 09:00 12/29/18 08:59 12/22/18 16:07 Meropenem 1 gm/ Sodium Chloride 55 ml @ 110 mls/hr Q12HR@0100,1300 IVPB 12/21/18 13:00 12/26/18 12:59 12/25/18 01:33 Norepinephrine Bitartrate 4 mg/ Dextrose 250 ml @ 0 mls/hr Q24H IV 12/20/18 07:00 01/19/19 06:59 12/20/18 18:25 Vancomycin HCl (Vanco rx to dose) 1 ea DAILY PRN MISC Per rx protocol 12/20/18 11:00 01/19/19 10:59 Vancomycin HCl 1 gm/Dextrose 275 ml @ 183.708 mls/hr Q24H IVPB 12/24/18 09:00 12/29/18 08:59 12/24/18 09:25 Pablo Day MD Dec 25, 2018 07:16
--- NOTE | 2018-12-25 07:21 | General Progress Note ---
Assessment/Plan Problem List: (1) Colostomy status ICD Codes: Z93.3 - Colostomy status SNOMED: 32605138, [id number], 152311225 (2) PEG (percutaneous endoscopic gastrostomy) status ICD Codes: Z93.1 - Gastrostomy status SNOMED: 053893183, 637218232 (3) Anemia ICD Codes: D64.9 - Anemia, unspecified SNOMED: 017332789 (4) Respiratory failure with hypoxia ICD Codes: J96.91 - Respiratory failure, unspecified with hypoxia SNOMED: [id number], [id number] Qualifiers: Qualified Codes: J96.01 - Acute respiratory failure with hypoxia Status: stable, progressing Assessment/Plan: respiratory failure sepsis ARF G Tube dependent colostomy dependent GTF anemia work up OB stool r/o GI bleed pending read monitor H&H, prn transfusions bowel regimen ppi electrolyte correction fu labs GI procedures only if emergent Subjective ROS Limited/Unobtainable: No Allergies: Coded Allergies: ALLOPURINOL (Verified Allergy, Unknown, 12/20/18) Objective Last 24 Hour Vital Signs Date Time Temp Pulse Resp B/P (MAP) Pulse Ox O2 Delivery O2 Flow Rate FiO2 12/25/18 06:00 99.6 83 20 106/54 (71) 100 12/25/18 05:00 90 23 119/64 (82) 100 12/25/18 05:00 88 19 40 12/25/18 04:00 99.1 88 20 119/62 (81) 100 12/25/18 04:00 74 12/25/18 04:00 40 12/25/18 04:00 Mechanical Ventilator 12/25/18 03:29 89 20 99 Mechanical Ventilator 40 12/25/18 03:15 89 20 40 12/25/18 03:00 79 18 121/65 (83) 100 12/25/18 02:00 82 21 136/62 (86) 100 12/25/18 01:28 81 18 40 12/25/18 01:00 80 20 128/62 (84) 100 12/25/18 00:00 40 12/25/18 00:00 Mechanical Ventilator 12/25/18 00:00 83 12/25/18 00:00 99.3 81 15 125/60 (81) 100 12/24/18 23:22 82 19 40 12/24/18 23:00 77 20 127/65 (85) 100 12/24/18 22:00 68 21 130/71 (90) 100 12/24/18 21:19 73 23 40 12/24/18 21:00 70 20 129/60 (83) 100 12/24/18 20:00 Mechanical Ventilator 12/24/18 20:00 99.5 65 19 142/58 (86) 100 12/24/18 20:00 40 12/24/18 20:00 65 12/24/18 19:02 68 21 40 12/24/18 19:00 68 19 147/125 (132) 100 12/24/18 18:00 69 19 131/59 (83) 97 12/24/18 17:16 71 22 40 12/24/18 17:00 66 20 137/56 (83) 100 12/24/18 16:00 40 12/24/18 16:00 98.0 69 20 124/69 (87) 100 12/24/18 16:00 61 12/24/18 16:00 Mechanical Ventilator 12/24/18 15:00 65 20 124/59 (80) 100 12/24/18 14:39 57 15 40 12/24/18 14:00 60 17 144/57 (86) 100 12/24/18 13:10 58 17 134/54 (80) 100 12/24/18 12:34 79 24 40 12/24/18 12:00 61 12/24/18 12:00 40 12/24/18 12:00 98.8 59 18 134/54 (80) 100 12/24/18 12:00 Mechanical Ventilator 12/24/18 11:13 78 24 40 12/24/18 11:00 69 20 159/77 (104) 100 12/24/18 10:00 67 21 143/56 (85) 100 12/24/18 09:00 60 20 159/77 (104) 100 12/24/18 09:00 100 12/24/18 08:58 85 24 40 40 12/24/18 08:49 71 25 40 40 12/24/18 08:00 Mechanical Ventilator 12/24/18 08:00 40 12/24/18 08:00 65 12/24/18 08:00 98.5 74 19 135/64 (87) 100 Intake and Output 12/24/18 12/25/18 19:00 07:00 Intake Total 1527.4 ml 1090 ml Output Total 1175 ml 465 ml Balance 352.4 ml 625 ml Intake Free Water 200 ml 100 ml IV Total 607.4 ml 550 ml Tube Feeding 480 ml 440 ml Other 240 ml Output Urine Total 1025 ml 465 ml Stool Total 150 ml Laboratory Tests 12/24/18 10:50: Arterial Blood pH 7.435, Arterial Blood Partial Pressure CO2 32.1L, Arterial Blood Partial Pressure O2 149.2H, Arterial Blood HCO3 21.1L, Arterial Blood Oxygen Saturation 98.5, Arterial Blood Base Excess -2.5L, Brock Test Positive 12/25/18 04:00: White Blood Count 12.5H, Red Blood Count 3.63L, Hemoglobin 9.8L, Hematocrit 30.6L, Mean Corpuscular Volume 84, Mean Corpuscular Hemoglobin 27.0, Mean Corpuscular Hemoglobin Concent 32.1, Red Cell Distribution Width 15.2H, Platelet Count 258, Mean Platelet Volume 7.8, Neutrophils (%) (Auto) 66.2, Lymphocytes (%) (Auto) 29.5, Monocytes (%) (Auto) 2.9, Eosinophils (%) (Auto) 0.9, Basophils (%) (Auto) 0.4, Sodium Level 145, Potassium Level 3.8, Chloride Level 111H, Carbon Dioxide Level 24, Anion Gap 10, Blood Urea Nitrogen 28H, Creatinine 1.1, Estimat Glomerular Filtration Rate , Glucose Level 81, Calcium Level 8.4L Height (Feet): 5 Height (Inches): 6.00 Weight (Pounds): 200 General Appearance: no apparent distress EENT: normal ENT inspection Neck: supple Cardiovascular: normal rate Respiratory/Chest: decreased breath sounds Abdomen: normal bowel sounds, non tender, soft Extremities: non-tender Horacio Vora MD Dec 25, 2018 07:21
[2018-12-25] MEDS: Vancomycin 1gm/D5W 275ml IVPB SCH ×2 (09:25)
[2018-12-25] MEDS: Levemir Flexpen SUBQ SCH ×2 (09:32→17:33)
--- NOTE | 2018-12-25 10:42 | Infectious Diseases Prog Note ---
Assessment/Plan Assessment/Plan A 1. MRSA pneumonia 2. e.coli UTI 3. shock 4. renal failure improving 5. respiratory failure 6. diabetes mellitus 7. 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 continue iv vancomycin 2. Change meropenem to Rocephin Subjective ROS Limited/Unobtainable: Yes Neurologic: Reports: confusion, other - on restraint Allergies: Coded Allergies: ALLOPURINOL (Verified Allergy, Unknown, 12/20/18) Objective Vital Signs Last 24 Hour Vital Signs Date Time Temp Pulse Resp B/P (MAP) Pulse Ox O2 Delivery O2 Flow Rate FiO2 12/25/18 10:35 85 19 100 Mechanical Ventilator 12/25/18 10:00 93 28 141/67 (91) 100 12/25/18 09:00 99.2 85 21 112/55 (74) 100 12/25/18 08:52 85 19 40 12/25/18 08:00 40 12/25/18 08:00 99.2 85 18 110/86 (94) 100 12/25/18 08:00 Mechanical Ventilator 12/25/18 08:00 83 12/25/18 07:26 81 19 40 12/25/18 07:00 86 20 104/61 (75) 100 12/25/18 06:00 99.6 83 20 106/54 (71) 100 12/25/18 05:00 90 23 119/64 (82) 100 12/25/18 05:00 88 19 40 12/25/18 04:00 99.1 88 20 119/62 (81) 100 12/25/18 04:00 74 12/25/18 04:00 40 12/25/18 04:00 Mechanical Ventilator 12/25/18 03:29 89 20 99 Mechanical Ventilator 40 12/25/18 03:15 89 20 40 12/25/18 03:00 79 18 121/65 (83) 100 12/25/18 02:00 82 21 136/62 (86) 100 12/25/18 01:28 81 18 40 12/25/18 01:00 80 20 128/62 (84) 100 12/25/18 00:00 40 12/25/18 00:00 Mechanical Ventilator 12/25/18 00:00 83 12/25/18 00:00 99.3 81 15 125/60 (81) 100 12/24/18 23:22 82 19 40 12/24/18 23:00 77 20 127/65 (85) 100 12/24/18 22:00 68 21 130/71 (90) 100 12/24/18 21:19 73 23 40 12/24/18 21:00 70 20 129/60 (83) 100 12/24/18 20:00 Mechanical Ventilator 12/24/18 20:00 99.5 65 19 142/58 (86) 100 12/24/18 20:00 40 12/24/18 20:00 65 12/24/18 19:02 68 21 40 12/24/18 19:00 68 19 147/125 (132) 100 12/24/18 18:00 69 19 131/59 (83) 97 12/24/18 17:16 71 22 40 12/24/18 17:00 66 20 137/56 (83) 100 12/24/18 16:00 40 12/24/18 16:00 98.0 69 20 124/69 (87) 100 12/24/18 16:00 61 12/24/18 16:00 Mechanical Ventilator 12/24/18 15:00 65 20 124/59 (80) 100 12/24/18 14:39 57 15 40 12/24/18 14:00 60 17 144/57 (86) 100 12/24/18 13:10 58 17 134/54 (80) 100 12/24/18 12:34 79 24 40 12/24/18 12:00 61 12/24/18 12:00 40 12/24/18 12:00 98.8 59 18 134/54 (80) 100 12/24/18 12:00 Mechanical Ventilator 12/24/18 11:13 78 24 40 12/24/18 11:00 69 20 159/77 (104) 100 Height (Feet): 5 Height (Inches): 6.00 Weight (Pounds): 200 HEENT: other - orally intubated Respiratory/Chest: lungs clear, other - on ventilator Cardiovascular: normal rate, other - RIJ central line Abdomen: other - s/p colostomy, s/p GT Extremities: no edema Skin: ulcers, other - sacral stage 4 Neurologic/Psychiatric: unresponsiveness Laboratory Tests Test 12/24/18 10:50 12/25/18 04:00 Arterial Blood pH 7.435 (7.350-7.450) Arterial Blood Partial Pressure CO2 32.1 mmHg (35.0-45.0) L Arterial Blood Partial Pressure O2 149.2 mmHg (75.0-100.0) H Arterial Blood HCO3 21.1 mmol/L (22.0-26.0) L Arterial Blood Oxygen Saturation 98.5 % (95-100) Arterial Blood Base Excess -2.5 (-2-2) L Brock Test Positive White Blood Count 12.5 K/UL (4.8-10.8) H Red Blood Count 3.63 M/UL (4.20-5.40) L Hemoglobin 9.8 G/DL (12.0-16.0) L Hematocrit 30.6 % (37.0-47.0) L Mean Corpuscular Volume 84 FL (80-99) Mean Corpuscular Hemoglobin 27.0 PG (27.0-31.0) Mean Corpuscular Hemoglobin Concent 32.1 G/DL (32.0-36.0) Red Cell Distribution Width 15.2 % (11.6-14.8) H Platelet Count 258 K/UL (150-450) Mean Platelet Volume 7.8 FL (6.5-10.1) Neutrophils (%) (Auto) 66.2 % (45.0-75.0) Lymphocytes (%) (Auto) 29.5 % (20.0-45.0) Monocytes (%) (Auto) 2.9 % (1.0-10.0) Eosinophils (%) (Auto) 0.9 % (0.0-3.0) Basophils (%) (Auto) 0.4 % (0.0-2.0) Sodium Level 145 MMOL/L (136-145) Potassium Level 3.8 MMOL/L (3.5-5.1) Chloride Level 111 MMOL/L (98-107) H Carbon Dioxide Level 24 MMOL/L (21-32) Anion Gap 10 mmol/L (5-15) Blood Urea Nitrogen 28 mg/dL (7-18) H Creatinine 1.1 MG/DL (0.55-1.30) Estimat Glomerular Filtration Rate mL/min (>60) Glucose Level 81 MG/DL (74-106) Calcium Level 8.4 MG/DL (8.5-10.1) L Current Medications Medications (Trade) Dose Ordered Sig/Nora Route PRN Reason Start Time Stop Time Status Last Admin Dose Admin Acetaminophen (Tylenol) 650 mg Q4H PRN ORAL Mild Pain/Temp > 100.5 12/20/18 06:30 01/19/19 06:29 12/23/18 20:58 Chlorhexidine Gluconate (Valentina-Hex 2%) 1 applic DAILY@2000 TOPIC 12/22/18 20:00 01/21/19 19:59 12/24/18 20:25 Dextrose 1,000 ml @ 40 mls/hr Q24H IV 12/22/18 14:37 01/21/19 14:36 12/24/18 15:54 Dextrose (Dextrose 50%) 25 ml Q30M PRN IV Hypoglycemia 12/20/18 19:00 01/19/19 18:59 Dextrose (Dextrose 50%) 50 ml Q30M PRN IV Hypoglycemia 12/20/18 19:00 01/19/19 18:59 Insulin Aspart (NovoLOG) Q6HR SUBQ 12/20/18 12:00 01/19/19 11:59 12/24/18 17:30 Insulin Detemir (Levemir) 9 units BID SUBQ 12/25/18 09:00 01/20/19 08:59 12/25/18 09:32 Lansoprazole (Prevacid) 30 mg BID GT 12/20/18 18:00 01/20/19 08:59 12/25/18 09:25 Lorazepam (Ativan 2mg/ml 1ml) 1 mg Q3H PRN IV For Anxiety 12/22/18 09:00 12/29/18 08:59 12/22/18 16:07 Meropenem 1 gm/ Sodium Chloride 55 ml @ 110 mls/hr Q12HR@0100,1300 IVPB 12/21/18 13:00 12/26/18 23:59 12/25/18 01:33 Norepinephrine Bitartrate 4 mg/ Dextrose 250 ml @ 0 mls/hr Q24H IV 12/20/18 07:00 01/19/19 06:59 12/20/18 18:25 Vancomycin HCl (Vanco rx to dose) 1 ea DAILY PRN MISC Per rx protocol 12/20/18 11:00 01/19/19 10:59 Vancomycin HCl 1 gm/Dextrose 275 ml @ 183.708 mls/hr Q24H IVPB 12/24/18 09:00 12/29/18 08:59 12/25/18 09:25 Roland Navarro MD Dec 25, 2018 10:42
[2018-12-25] MEDS: cefTRIAXone 1 GM in D5W 55 ML IVPB SCH (12:59)
--- NOTE | 2018-12-25 14:10 | Cardiac Electrophysiology PN ---
Assessment/Plan Assessment/Plan 1. S/P septic and hypovolemic shock in view of high lactic acid of 7.5 as well as severe dehydration. The patient has received 5 liters of normal saline. Levophed DCed. Echo EF 50 to 55 percent. Continue iv fluids 2. Troponin leak due to renal failure. EKG does not show any acute ST-T wave abnormality and shows sinus tachycardia of 102 with only left atrial enlargement. 3. Respiratory failure. On the ventilator and IV antibiotics. Failed weaning 4. Transient bradycardia. Will start Dopamine if recurs and persists 5. Status post colostomy bag. 6. Severe dehydration with renal failure and hypernatremia. On IV fluids per Dr. Cifuentes. 7. Stage IV sacral decubitus ulcer. 8. Anemia of chronic disease. S/p PRBC . 9. Dysphagia, status post PEG placement. WELLINGTON RN and Dr Cifuentes Subjective Subjective Off pressors in ICU on the vent. Had devaughn overnight Objective Last 24 Hour Vital Signs Date Time Temp Pulse Resp B/P (MAP) Pulse Ox O2 Delivery O2 Flow Rate FiO2 12/25/18 13:08 84 20 40 12/25/18 13:00 81 20 141/65 (90) 100 12/25/18 12:00 81 21 125/73 (90) 100 12/25/18 12:00 40 12/25/18 11:11 80 17 40 12/25/18 11:00 83 17 131/62 (85) 100 12/25/18 10:35 85 19 100 Mechanical Ventilator 12/25/18 10:00 93 28 141/67 (91) 100 12/25/18 09:00 99.2 85 21 112/55 (74) 100 12/25/18 08:52 85 19 40 12/25/18 08:00 40 12/25/18 08:00 99.2 85 18 110/86 (94) 100 12/25/18 08:00 Mechanical Ventilator 12/25/18 08:00 83 12/25/18 07:26 81 19 40 12/25/18 07:00 86 20 104/61 (75) 100 12/25/18 06:00 99.6 83 20 106/54 (71) 100 12/25/18 05:00 90 23 119/64 (82) 100 12/25/18 05:00 88 19 40 12/25/18 04:00 99.1 88 20 119/62 (81) 100 12/25/18 04:00 74 12/25/18 04:00 40 12/25/18 04:00 Mechanical Ventilator 12/25/18 03:29 89 20 99 Mechanical Ventilator 40 12/25/18 03:15 89 20 40 12/25/18 03:00 79 18 121/65 (83) 100 12/25/18 02:00 82 21 136/62 (86) 100 12/25/18 01:28 81 18 40 12/25/18 01:00 80 20 128/62 (84) 100 12/25/18 00:00 40 12/25/18 00:00 Mechanical Ventilator 12/25/18 00:00 83 12/25/18 00:00 99.3 81 15 125/60 (81) 100 12/24/18 23:22 82 19 40 12/24/18 23:00 77 20 127/65 (85) 100 12/24/18 22:00 68 21 130/71 (90) 100 12/24/18 21:19 73 23 40 12/24/18 21:00 70 20 129/60 (83) 100 12/24/18 20:00 Mechanical Ventilator 12/24/18 20:00 99.5 65 19 142/58 (86) 100 12/24/18 20:00 40 12/24/18 20:00 65 12/24/18 19:02 68 21 40 12/24/18 19:00 68 19 147/125 (132) 100 12/24/18 18:00 69 19 131/59 (83) 97 12/24/18 17:16 71 22 40 12/24/18 17:00 66 20 137/56 (83) 100 12/24/18 16:00 40 12/24/18 16:00 98.0 69 20 124/69 (87) 100 12/24/18 16:00 61 12/24/18 16:00 Mechanical Ventilator 12/24/18 15:00 65 20 124/59 (80) 100 12/24/18 14:39 57 15 40 Intake and Output 12/24/18 12/25/18 19:00 07:00 Intake Total 1527.4 ml 1170 ml Output Total 1175 ml 515 ml Balance 352.4 ml 655 ml Intake Free Water 200 ml 100 ml IV Total 607.4 ml 590 ml Tube Feeding 480 ml 480 ml Other 240 ml Output Urine Total 1025 ml 515 ml Stool Total 150 ml Laboratory Tests Test 12/25/18 04:00 White Blood Count 12.5 K/UL (4.8-10.8) H Red Blood Count 3.63 M/UL (4.20-5.40) L Hemoglobin 9.8 G/DL (12.0-16.0) L Hematocrit 30.6 % (37.0-47.0) L Mean Corpuscular Volume 84 FL (80-99) Mean Corpuscular Hemoglobin 27.0 PG (27.0-31.0) Mean Corpuscular Hemoglobin Concent 32.1 G/DL (32.0-36.0) Red Cell Distribution Width 15.2 % (11.6-14.8) H Platelet Count 258 K/UL (150-450) Mean Platelet Volume 7.8 FL (6.5-10.1) Neutrophils (%) (Auto) 66.2 % (45.0-75.0) Lymphocytes (%) (Auto) 29.5 % (20.0-45.0) Monocytes (%) (Auto) 2.9 % (1.0-10.0) Eosinophils (%) (Auto) 0.9 % (0.0-3.0) Basophils (%) (Auto) 0.4 % (0.0-2.0) Sodium Level 145 MMOL/L (136-145) Potassium Level 3.8 MMOL/L (3.5-5.1) Chloride Level 111 MMOL/L (98-107) H Carbon Dioxide Level 24 MMOL/L (21-32) Anion Gap 10 mmol/L (5-15) Blood Urea Nitrogen 28 mg/dL (7-18) H Creatinine 1.1 MG/DL (0.55-1.30) Estimat Glomerular Filtration Rate mL/min (>60) Glucose Level 81 MG/DL (74-106) Calcium Level 8.4 MG/DL (8.5-10.1) L Objective HEAD AND NECK: No JVD. LUNGS: Coarse rhonchi orally intubated. CARDIOVASCULAR:Tachycardic, S1, S2 with no gallop or murmur. ABDOMEN: Soft and nontender. EXTREMITIES: No pitting edema. She has a G-tube and a colostomy bag. Logan Singh MD Dec 25, 2018 14:10
--- NOTE | 2018-12-25 15:21 | Nephrology Progress Note ---
Assessment/Plan Problem List: (1) Renal failure (ARF), acute on chronic (2) Sepsis (3) Severe dehydration (4) Hyperglycemia due to type 2 diabetes mellitus (5) Hypotension (6) Respiratory failure with hypoxia (7) Anemia (8) PEG (percutaneous endoscopic gastrostomy) status (9) Colostomy status Assessment Acute renal failure- Multifactorial, Pre Renal on Renal DM OOC Respiratory failure, acute- on Vent in ICU sepsis / Shock sacral ulcer hypernatremia due to water deficit severe protein calorie malnutrition and hypoalbuminemia hypoxemia, severe PEG COlostomy Severe Anemia underlying Plan fluids- k , Phos , Mag supplement as needed water via GT antibiotics pressors pulm support 1.5 Units PRBCs transfused 12/20 feeding monitor renal parameters Subjective ROS Limited/Unobtainable: Yes Objective Objective Last 24 Hour Vital Signs Date Time Temp Pulse Resp B/P (MAP) Pulse Ox O2 Delivery O2 Flow Rate FiO2 12/25/18 14:00 87 22 159/76 (103) 100 12/25/18 13:08 84 20 40 12/25/18 13:00 99.5 81 20 141/65 (90) 100 12/25/18 12:00 81 21 125/73 (90) 100 12/25/18 12:00 40 12/25/18 12:00 78 12/25/18 12:00 Mechanical Ventilator 12/25/18 11:11 80 17 40 12/25/18 11:00 83 17 131/62 (85) 100 12/25/18 10:35 85 19 100 Mechanical Ventilator 12/25/18 10:00 93 28 141/67 (91) 100 12/25/18 09:00 99.2 85 21 112/55 (74) 100 12/25/18 08:52 85 19 40 12/25/18 08:00 40 12/25/18 08:00 99.2 85 18 110/86 (94) 100 12/25/18 08:00 Mechanical Ventilator 12/25/18 08:00 83 12/25/18 07:26 81 19 40 12/25/18 07:00 86 20 104/61 (75) 100 12/25/18 06:00 99.6 83 20 106/54 (71) 100 12/25/18 05:00 90 23 119/64 (82) 100 12/25/18 05:00 88 19 40 12/25/18 04:00 99.1 88 20 119/62 (81) 100 12/25/18 04:00 74 12/25/18 04:00 40 12/25/18 04:00 Mechanical Ventilator 12/25/18 03:29 89 20 99 Mechanical Ventilator 40 12/25/18 03:15 89 20 40 12/25/18 03:00 79 18 121/65 (83) 100 12/25/18 02:00 82 21 136/62 (86) 100 12/25/18 01:28 81 18 40 12/25/18 01:00 80 20 128/62 (84) 100 12/25/18 00:00 40 12/25/18 00:00 Mechanical Ventilator 12/25/18 00:00 83 12/25/18 00:00 99.3 81 15 125/60 (81) 100 12/24/18 23:22 82 19 40 12/24/18 23:00 77 20 127/65 (85) 100 12/24/18 22:00 68 21 130/71 (90) 100 12/24/18 21:19 73 23 40 12/24/18 21:00 70 20 129/60 (83) 100 12/24/18 20:00 Mechanical Ventilator 12/24/18 20:00 99.5 65 19 142/58 (86) 100 12/24/18 20:00 40 12/24/18 20:00 65 12/24/18 19:02 68 21 40 12/24/18 19:00 68 19 147/125 (132) 100 12/24/18 18:00 69 19 131/59 (83) 97 12/24/18 17:16 71 22 40 12/24/18 17:00 66 20 137/56 (83) 100 12/24/18 16:00 40 12/24/18 16:00 98.0 69 20 124/69 (87) 100 12/24/18 16:00 61 12/24/18 16:00 Mechanical Ventilator Intake and Output 12/24/18 12/25/18 19:00 07:00 Intake Total 1527.4 ml 1170 ml Output Total 1175 ml 515 ml Balance 352.4 ml 655 ml Intake Free Water 200 ml 100 ml IV Total 607.4 ml 590 ml Tube Feeding 480 ml 480 ml Other 240 ml Output Urine Total 1025 ml 515 ml Stool Total 150 ml Laboratory Tests 12/25/18 04:00: White Blood Count 12.5H, Red Blood Count 3.63L, Hemoglobin 9.8L, Hematocrit 30.6L, Mean Corpuscular Volume 84, Mean Corpuscular Hemoglobin 27.0, Mean Corpuscular Hemoglobin Concent 32.1, Red Cell Distribution Width 15.2H, Platelet Count 258, Mean Platelet Volume 7.8, Neutrophils (%) (Auto) 66.2, Lymphocytes (%) (Auto) 29.5, Monocytes (%) (Auto) 2.9, Eosinophils (%) (Auto) 0.9, Basophils (%) (Auto) 0.4, Sodium Level 145, Potassium Level 3.8, Chloride Level 111H, Carbon Dioxide Level 24, Anion Gap 10, Blood Urea Nitrogen 28H, Creatinine 1.1, Estimat Glomerular Filtration Rate , Glucose Level 81, Calcium Level 8.4L Height (Feet): 5 Height (Inches): 6.00 Weight (Pounds): 200 General Appearance: no apparent distress EENT: other - vented Cardiovascular: normal rate Respiratory/Chest: decreased breath sounds Abdomen: distended Servando Cifuentes MD Dec 25, 2018 15:21
--- NOTE | 2018-12-25 15:56 | Hematology/Onc Progress Note ---
Assessment/Plan Assessment/Plan Assessment and Recs: # Anemia of chronic disease due to underlying chronic medical issues, multifactorial , ferritin 366, tibc 144 --> Anemia workup has been reviewed, rule out gi bleed --> No evidence of hemolysis is noted, peripheral smear has been reviewed. --> Hgb goal >7. Transfuse prn. --> Epogen or iron at this time is not particularly indicated --> Medications have been reviewed --> low threshold for gi evaluation in case has occult + --> Hgb trend: 9.3-->9.5--> 9.8 # Recanalized dvt of the right lower extremity --> given it has healed/recanalzied, is not acute okay for just heparin prophylactic dosing --> continue heparin sq bid dosing # Leukocytosis/elevated white blood cell count, is due to underlying sepsis urine infection+ --> Currently improving/trending downwards --> ID is following, appreciate recs --> have reviewed peripheral smear and bandemia/neutrophilia noted --> continue antibiotics per ID --> monitor for resolution --> trend 15-->24-->21k-->17.4-->11.2--> 12.5 # Respiratory failure with hypoxia --> s/p vent placement intubated 12/20/18, --> pulm eval # Sacral decubitus ulcer, stage IV --> per surg # HCAP (healthcare-associated pneumonia) # ARF (acute renal failure) --> per renal # Hyperglycemia due to type 2 diabetes mellitus # Acute metabolic encephalopathy # Severe dehydration The timing of this note does not necessarily reflect the time of the patient was seen. GREATLY APPRECIATE CONSULTATION. Subjective Allergies: Coded Allergies: ALLOPURINOL (Verified Allergy, Unknown, 12/20/18) Subjective Subjective Subjective Hematologic/Lymphatic: Reports: anemia Allergies: Coded Allergies: ALLOPURINOL (Verified Allergy, Unknown, 12/20/18) Subjective 12/21: no events, on abx, with pressor 12/22: Pt to start weaning off of vent. Remains on abx. CBC reviewed. 12/24: Prssor prn for HR <50. H/H stable. WBC improved. 12/25: remains intubated on vent, hypotensive. Objective Objective Current Medications Medications (Trade) Dose Ordered Sig/Nora Route PRN Reason Start Time Stop Time Status Last Admin Dose Admin Acetaminophen (Tylenol) 650 mg Q4H PRN ORAL Mild Pain/Temp > 100.5 12/20/18 06:30 01/19/19 06:29 12/23/18 20:58 Ceftriaxone Sodium 1 gm/ Dextrose 55 ml @ 110 mls/hr Q24H IVPB 12/25/18 12:00 01/01/19 11:59 12/25/18 12:59 Chlorhexidine Gluconate (Valentina-Hex 2%) 1 applic DAILY@2000 TOPIC 12/22/18 20:00 01/21/19 19:59 12/24/18 20:25 Clonidine HCl (Catapres Tab) 0.1 mg Q4H PRN GT SBP > 170mmHg 12/25/18 14:30 01/24/19 14:29 Dextrose 1,000 ml @ 30 mls/hr Q24H IV 12/25/18 15:30 01/24/19 15:29 12/25/18 15:41 Dextrose (Dextrose 50%) 25 ml Q30M PRN IV Hypoglycemia 12/20/18 19:00 01/19/19 18:59 Dextrose (Dextrose 50%) 50 ml Q30M PRN IV Hypoglycemia 12/20/18 19:00 01/19/19 18:59 Insulin Aspart (NovoLOG) Q6HR SUBQ 12/20/18 12:00 01/19/19 11:59 12/25/18 13:04 Insulin Detemir (Levemir) 9 units BID SUBQ 12/25/18 09:00 01/20/19 08:59 12/25/18 09:32 Lansoprazole (Prevacid) 30 mg BID GT 12/20/18 18:00 01/20/19 08:59 12/25/18 09:25 Lorazepam (Ativan 2mg/ml 1ml) 1 mg Q3H PRN IV For Anxiety 12/22/18 09:00 12/29/18 08:59 12/22/18 16:07 Norepinephrine Bitartrate 4 mg/ Dextrose 250 ml @ 0 mls/hr Q24H IV 12/20/18 07:00 01/19/19 06:59 12/20/18 18:25 Vancomycin HCl (Vanco rx to dose) 1 ea DAILY PRN MISC Per rx protocol 12/20/18 11:00 01/19/19 10:59 Vancomycin HCl 1 gm/Dextrose 275 ml @ 183.708 mls/hr Q24H IVPB 12/24/18 09:00 12/29/18 08:59 12/25/18 09:25 Last 24 Hour Vital Signs Date Time Temp Pulse Resp B/P (MAP) Pulse Ox O2 Delivery O2 Flow Rate FiO2 12/25/18 15:15 80 23 40 12/25/18 14:00 87 22 159/76 (103) 100 12/25/18 13:08 84 20 40 12/25/18 13:00 99.5 81 20 141/65 (90) 100 12/25/18 12:00 81 21 125/73 (90) 100 12/25/18 12:00 40 12/25/18 12:00 78 12/25/18 12:00 Mechanical Ventilator 12/25/18 11:11 80 17 40 12/25/18 11:00 83 17 131/62 (85) 100 12/25/18 10:35 85 19 100 Mechanical Ventilator 12/25/18 10:00 93 28 141/67 (91) 100 12/25/18 09:00 99.2 85 21 112/55 (74) 100 12/25/18 08:52 85 19 40 12/25/18 08:00 40 12/25/18 08:00 99.2 85 18 110/86 (94) 100 12/25/18 08:00 Mechanical Ventilator 12/25/18 08:00 83 12/25/18 07:26 81 19 40 12/25/18 07:00 86 20 104/61 (75) 100 12/25/18 06:00 99.6 83 20 106/54 (71) 100 12/25/18 05:00 90 23 119/64 (82) 100 12/25/18 05:00 88 19 40 12/25/18 04:00 99.1 88 20 119/62 (81) 100 12/25/18 04:00 74 12/25/18 04:00 40 12/25/18 04:00 Mechanical Ventilator 12/25/18 03:29 89 20 99 Mechanical Ventilator 40 12/25/18 03:15 89 20 40 12/25/18 03:00 79 18 121/65 (83) 100 12/25/18 02:00 82 21 136/62 (86) 100 12/25/18 01:28 81 18 40 12/25/18 01:00 80 20 128/62 (84) 100 12/25/18 00:00 40 12/25/18 00:00 Mechanical Ventilator 12/25/18 00:00 83 12/25/18 00:00 99.3 81 15 125/60 (81) 100 12/24/18 23:22 82 19 40 12/24/18 23:00 77 20 127/65 (85) 100 12/24/18 22:00 68 21 130/71 (90) 100 12/24/18 21:19 73 23 40 12/24/18 21:00 70 20 129/60 (83) 100 12/24/18 20:00 Mechanical Ventilator 12/24/18 20:00 99.5 65 19 142/58 (86) 100 12/24/18 20:00 40 12/24/18 20:00 65 12/24/18 19:02 68 21 40 12/24/18 19:00 68 19 147/125 (132) 100 12/24/18 18:00 69 19 131/59 (83) 97 12/24/18 17:16 71 22 40 12/24/18 17:00 66 20 137/56 (83) 100 12/24/18 16:00 40 12/24/18 16:00 98.0 69 20 124/69 (87) 100 12/24/18 16:00 61 12/24/18 16:00 Mechanical Ventilator 12/24/18 15:00 65 20 124/59 (80) 100 12/24/18 14:39 57 15 40 12/24/18 14:00 60 17 144/57 (86) 100 12/24/18 13:10 58 17 134/54 (80) 100 12/24/18 12:34 79 24 40 12/24/18 12:00 61 12/24/18 12:00 40 12/24/18 12:00 98.8 59 18 134/54 (80) 100 12/24/18 12:00 Mechanical Ventilator 12/24/18 11:13 78 24 40 12/24/18 11:00 69 20 159/77 (104) 100 12/24/18 10:00 67 21 143/56 (85) 100 12/24/18 09:00 60 20 159/77 (104) 100 12/24/18 09:00 100 12/24/18 08:58 85 24 40 40 12/24/18 08:49 71 25 40 40 12/24/18 08:00 Mechanical Ventilator 12/24/18 08:00 40 12/24/18 08:00 65 12/24/18 08:00 98.5 74 19 135/64 (87) 100 12/24/18 07:12 67 17 40 12/24/18 07:00 61 17 147/61 (89) 100 12/24/18 06:00 71 21 148/56 (86) 100 12/24/18 05:00 69 19 148/49 (82) 100 12/24/18 04:52 71 21 40 12/24/18 04:00 Mechanical Ventilator 12/24/18 04:00 61 12/24/18 04:00 98.6 80 20 148/68 (94) 100 12/24/18 04:00 40 12/24/18 03:00 72 17 131/85 (100) 100 12/24/18 02:55 80 18 40 12/24/18 02:00 71 17 125/72 (89) 100 12/24/18 01:01 81 22 40 12/24/18 01:00 83 23 147/79 (101) 100 12/24/18 00:00 65 12/24/18 00:00 Mechanical Ventilator 12/24/18 00:00 40 12/24/18 00:00 98.0 69 17 129/70 (89) 100 12/23/18 23:00 67 17 104/57 (73) 100 12/23/18 22:34 82 18 40 12/23/18 22:00 74 19 109/58 (75) 100 12/23/18 21:00 85 21 143/69 (93) 100 12/23/18 20:55 78 18 40 12/23/18 20:00 40 12/23/18 20:00 Mechanical Ventilator 12/23/18 20:00 77 12/23/18 20:00 98.2 78 17 118/63 (81) 100 12/23/18 19:00 78 22 139/57 (84) 100 12/23/18 18:55 80 19 40 12/23/18 18:00 72 17 107/67 (80) 100 12/23/18 17:00 72 18 133/58 (83) 100 12/23/18 16:41 67 21 40 12/23/18 16:00 98.3 74 18 128/62 (84) 100 12/23/18 16:00 67 12/23/18 16:00 40 12/23/18 16:00 Mechanical Ventilator Intake and Output 12/24/18 12/25/18 19:00 07:00 Intake Total 1527.4 ml 1170 ml Output Total 1175 ml 515 ml Balance 352.4 ml 655 ml Intake Free Water 200 ml 100 ml IV Total 607.4 ml 590 ml Tube Feeding 480 ml 480 ml Other 240 ml Output Urine Total 1025 ml 515 ml Stool Total 150 ml Labs Test 12/23/18 05:00 12/23/18 09:05 12/24/18 05:30 12/24/18 10:50 White Blood Count 13.7 K/UL (4.8-10.8) 11.2 K/UL (4.8-10.8) Red Blood Count 3.45 M/UL (4.20-5.40) 3.47 M/UL (4.20-5.40) Hemoglobin 9.3 G/DL (12.0-16.0) 9.5 G/DL (12.0-16.0) Hematocrit 29.1 % (37.0-47.0) 29.3 % (37.0-47.0) Mean Corpuscular Volume 84 FL (80-99) 84 FL (80-99) Mean Corpuscular Hemoglobin 27.0 PG (27.0-31.0) 27.3 PG (27.0-31.0) Mean Corpuscular Hemoglobin Concent 32.1 G/DL (32.0-36.0) 32.3 G/DL (32.0-36.0) Red Cell Distribution Width 15.3 % (11.6-14.8) 15.1 % (11.6-14.8) Platelet Count 219 K/UL (150-450) 208 K/UL (150-450) Mean Platelet Volume 8.6 FL (6.5-10.1) 8.2 FL (6.5-10.1) Neutrophils (%) (Auto) 80.6 % (45.0-75.0) 75.9 % (45.0-75.0) Lymphocytes (%) (Auto) 17.0 % (20.0-45.0) 20.5 % (20.0-45.0) Monocytes (%) (Auto) 1.4 % (1.0-10.0) 2.3 % (1.0-10.0) Eosinophils (%) (Auto) 0.7 % (0.0-3.0) 1.1 % (0.0-3.0) Basophils (%) (Auto) 0.2 % (0.0-2.0) 0.3 % (0.0-2.0) Sodium Level 146 MMOL/L (136-145) 146 MMOL/L (136-145) Potassium Level 3.6 MMOL/L (3.5-5.1) 3.7 MMOL/L (3.5-5.1) Chloride Level 112 MMOL/L (98-107) 113 MMOL/L (98-107) Carbon Dioxide Level 22 MMOL/L (21-32) 23 MMOL/L (21-32) Anion Gap 12 mmol/L (5-15) 10 mmol/L (5-15) Blood Urea Nitrogen 37 mg/dL (7-18) 31 mg/dL (7-18) Creatinine 1.4 MG/DL (0.55-1.30) 1.2 MG/DL (0.55-1.30) Estimat Glomerular Filtration Rate mL/min (>60) mL/min (>60) Glucose Level 190 MG/DL (74-106) 114 MG/DL (74-106) Uric Acid 5.2 MG/DL (2.6-7.2) Calcium Level 8.0 MG/DL (8.5-10.1) 8.3 MG/DL (8.5-10.1) Phosphorus Level 2.9 MG/DL (2.5-4.9) 2.7 MG/DL (2.5-4.9) Magnesium Level 1.8 MG/DL (1.8-2.4) 1.8 MG/DL (1.8-2.4) Total Bilirubin 0.2 MG/DL (0.2-1.0) 0.2 MG/DL (0.2-1.0) Aspartate Amino Transf (AST/SGOT) 15 U/L (15-37) 14 U/L (15-37) Alanine Aminotransferase (ALT/SGPT) 16 U/L (12-78) 18 U/L (12-78) Alkaline Phosphatase 68 U/L (46-116) 69 U/L (46-116) Total Protein 7.0 G/DL (6.4-8.2) 7.0 G/DL (6.4-8.2) Albumin 1.4 G/DL (3.4-5.0) 1.4 G/DL (3.4-5.0) Globulin 5.6 g/dL 5.6 g/dL Albumin/Globulin Ratio 0.2 (1.0-2.7) 0.2 (1.0-2.7) Random Vancomycin Level 18.6 ug/mL Arterial Blood pH 7.416 (7.350-7.450) 7.435 (7.350-7.450) Arterial Blood Partial Pressure CO2 32.5 mmHg (35.0-45.0) 32.1 mmHg (35.0-45.0) Arterial Blood Partial Pressure O2 106.7 mmHg (75.0-100.0) 149.2 mmHg (75.0-100.0) Arterial Blood HCO3 20.4 mmol/L (22.0-26.0) 21.1 mmol/L (22.0-26.0) Arterial Blood Oxygen Saturation 97.7 % (95-100) 98.5 % (95-100) Arterial Blood Base Excess -3.4 (-2-2) -2.5 (-2-2) Brock Test Positive Positive C-Reactive Protein, Quantitative 19.2 mg/dL (0.00-0.90) Pro-B-Type Natriuretic Peptide 7587 pg/mL (0-125) Test 12/25/18 04:00 White Blood Count 12.5 K/UL (4.8-10.8) Red Blood Count 3.63 M/UL (4.20-5.40) Hemoglobin 9.8 G/DL (12.0-16.0) Hematocrit 30.6 % (37.0-47.0) Mean Corpuscular Volume 84 FL (80-99) Mean Corpuscular Hemoglobin 27.0 PG (27.0-31.0) Mean Corpuscular Hemoglobin Concent 32.1 G/DL (32.0-36.0) Red Cell Distribution Width 15.2 % (11.6-14.8) Platelet Count 258 K/UL (150-450) Mean Platelet Volume 7.8 FL (6.5-10.1) Neutrophils (%) (Auto) 66.2 % (45.0-75.0) Lymphocytes (%) (Auto) 29.5 % (20.0-45.0) Monocytes (%) (Auto) 2.9 % (1.0-10.0) Eosinophils (%) (Auto) 0.9 % (0.0-3.0) Basophils (%) (Auto) 0.4 % (0.0-2.0) Sodium Level 145 MMOL/L (136-145) Potassium Level 3.8 MMOL/L (3.5-5.1) Chloride Level 111 MMOL/L (98-107) Carbon Dioxide Level 24 MMOL/L (21-32) Anion Gap 10 mmol/L (5-15) Blood Urea Nitrogen 28 mg/dL (7-18) Creatinine 1.1 MG/DL (0.55-1.30) Estimat Glomerular Filtration Rate mL/min (>60) Glucose Level 81 MG/DL (74-106) Calcium Level 8.4 MG/DL (8.5-10.1) Height (Feet): 5 Height (Inches): 6.00 Weight (Pounds): 200 Objective Objective Sp02 EP Interpretation: reviewed General Appearance: severe distress, lethargic, Chronically Ill Head: normocephalic, atraumatic Eyes: bilateral eye PERRL, bilateral eye EOMI ENT: dry mucus membranes Neck: full range of motion, supple, no meningismus Respiratory: chest non-tender, respiratory distress, rhonchi. VENT++ Cardiovascular: regular rate, rhythm, no murmur, tachycardia Gastrointestinal: normal bowel sounds, non tender- Reducible abdominal wall hernia. COLOSTOMY+, GT++ Rectal: other - large sacral Stage 4 ulcer Musculoskeletal: back normal, normal range of motion Psychiatric: mood/affect normal Skin: warm/dry Joyce Robins NP Dec 25, 2018 15:56
--- NOTE | 2018-12-25 17:09 | Surgery Progress Note ---
Surgery Progress Note Subjective Additional Comments in ICU. ill appearing. hypotensive on pressors. Objective Last 24 Hour Vital Signs Date Time Temp Pulse Resp B/P (MAP) Pulse Ox O2 Delivery O2 Flow Rate FiO2 12/25/18 16:49 84 26 40 12/25/18 16:16 50 12/25/18 16:13 50 12/25/18 16:00 89 12/25/18 16:00 Mechanical Ventilator 12/25/18 16:00 83 22 128/91 (103) 100 12/25/18 15:15 80 23 40 12/25/18 15:00 84 22 147/105 (119) 100 12/25/18 14:00 87 22 159/76 (103) 100 12/25/18 13:08 84 20 40 12/25/18 13:00 99.5 81 20 141/65 (90) 100 12/25/18 12:00 81 21 125/73 (90) 100 12/25/18 12:00 40 12/25/18 12:00 78 12/25/18 12:00 Mechanical Ventilator 12/25/18 11:11 80 17 40 12/25/18 11:00 83 17 131/62 (85) 100 12/25/18 10:35 85 19 100 Mechanical Ventilator 12/25/18 10:00 93 28 141/67 (91) 100 12/25/18 09:00 99.2 85 21 112/55 (74) 100 12/25/18 08:52 85 19 40 12/25/18 08:00 40 12/25/18 08:00 99.2 85 18 110/86 (94) 100 12/25/18 08:00 Mechanical Ventilator 12/25/18 08:00 83 12/25/18 07:26 81 19 40 12/25/18 07:00 86 20 104/61 (75) 100 12/25/18 06:00 99.6 83 20 106/54 (71) 100 12/25/18 05:00 90 23 119/64 (82) 100 12/25/18 05:00 88 19 40 12/25/18 04:00 99.1 88 20 119/62 (81) 100 12/25/18 04:00 74 12/25/18 04:00 40 12/25/18 04:00 Mechanical Ventilator 12/25/18 03:29 89 20 99 Mechanical Ventilator 40 12/25/18 03:15 89 20 40 12/25/18 03:00 79 18 121/65 (83) 100 12/25/18 02:00 82 21 136/62 (86) 100 12/25/18 01:28 81 18 40 12/25/18 01:00 80 20 128/62 (84) 100 12/25/18 00:00 40 12/25/18 00:00 Mechanical Ventilator 12/25/18 00:00 83 12/25/18 00:00 99.3 81 15 125/60 (81) 100 12/24/18 23:22 82 19 40 12/24/18 23:00 77 20 127/65 (85) 100 12/24/18 22:00 68 21 130/71 (90) 100 12/24/18 21:19 73 23 40 12/24/18 21:00 70 20 129/60 (83) 100 12/24/18 20:00 Mechanical Ventilator 12/24/18 20:00 99.5 65 19 142/58 (86) 100 12/24/18 20:00 40 12/24/18 20:00 65 12/24/18 19:02 68 21 40 12/24/18 19:00 68 19 147/125 (132) 100 12/24/18 18:00 69 19 131/59 (83) 97 12/24/18 17:16 71 22 40 I&O Intake and Output 12/24/18 12/25/18 19:00 07:00 Intake Total 1527.4 ml 1170 ml Output Total 1175 ml 515 ml Balance 352.4 ml 655 ml Intake Free Water 200 ml 100 ml IV Total 607.4 ml 590 ml Tube Feeding 480 ml 480 ml Other 240 ml Output Urine Total 1025 ml 515 ml Stool Total 150 ml Dressing: other Wound: other Drains: other Cardiovascular: RSR Respiratory: decreased breath sounds Abdomen: soft, present bowel sounds, non-distended Extremities: no cyanosis Laboratory Tests Test 12/25/18 04:00 White Blood Count 12.5 K/UL (4.8-10.8) H Red Blood Count 3.63 M/UL (4.20-5.40) L Hemoglobin 9.8 G/DL (12.0-16.0) L Hematocrit 30.6 % (37.0-47.0) L Mean Corpuscular Volume 84 FL (80-99) Mean Corpuscular Hemoglobin 27.0 PG (27.0-31.0) Mean Corpuscular Hemoglobin Concent 32.1 G/DL (32.0-36.0) Red Cell Distribution Width 15.2 % (11.6-14.8) H Platelet Count 258 K/UL (150-450) Mean Platelet Volume 7.8 FL (6.5-10.1) Neutrophils (%) (Auto) 66.2 % (45.0-75.0) Lymphocytes (%) (Auto) 29.5 % (20.0-45.0) Monocytes (%) (Auto) 2.9 % (1.0-10.0) Eosinophils (%) (Auto) 0.9 % (0.0-3.0) Basophils (%) (Auto) 0.4 % (0.0-2.0) Sodium Level 145 MMOL/L (136-145) Potassium Level 3.8 MMOL/L (3.5-5.1) Chloride Level 111 MMOL/L (98-107) H Carbon Dioxide Level 24 MMOL/L (21-32) Anion Gap 10 mmol/L (5-15) Blood Urea Nitrogen 28 mg/dL (7-18) H Creatinine 1.1 MG/DL (0.55-1.30) Estimat Glomerular Filtration Rate mL/min (>60) Glucose Level 81 MG/DL (74-106) Calcium Level 8.4 MG/DL (8.5-10.1) L Plan Problems: (1) Sepsis Assessment & Plan: cont current ICU care and management Cont IV abx trend labs (2) Severe dehydration (3) Anemia, chronic disease (4) HCAP (healthcare-associated pneumonia) (5) Sacral decubitus ulcer, stage IV Assessment & Plan: Pt presented on admission with full thickness Sacral Pressure Injury with undermining. Bone is palpable. Base of has beefy red granulation with scattered small purple areas. No odor noted .Scant serous exudate noted . Edges pink and flat. (L)13cm x (W)14cm x (D)5.6cm,[id number] by 4cm @11o'clock. DTPI noted to lateral R foot. .Base of wound purple and fluctuant in center with surrounding maroon discoloration (L)1.5cm x (W)1cm. Non-blanchable erythema with fluctuance noted to posterior and medial R heel. L heel boggy but blanchable. Tx.Plan: Cleanse Sacral wound with Saline. Loosely pack with Hydrogel Impregnated Kerlix. Cover with ABD pads and secure with Paper Tape or Tegaderm Daily and prn. Apply Cavilon Skin Barrier to R and Heel and lateral R heel. Ciover with Optifoam drsg. Change every 7 days and PRN. Apply Cavilon Skin Barrier to L heel. Cover with Optifoam drsg. Change every 7 days and prn. APM/VIJI Mattress Overlay. Reposition at least every 2hours or as tolerated. Off-load heels with Pillow. (6) Hyperglycemia due to type 2 diabetes mellitus (7) Acute metabolic encephalopathy (8) Hypotension (9) ARF (acute renal failure) (10) Respiratory failure with hypoxia Mauro Morrow Dec 25, 2018 17:08
--- NOTE | 2018-12-25 20:11 | Pulmonolgy Critical Care Note ---
Critical Care - Asmt/Plan Assessment/Plan: Pulmonary CCM Progress Note Assessment/Plan Respiratory failure, acute sepsis hypotension sacral ulcer hypernatremia acute renal failure severe protein calorie malnutrition hypoxemia, severe hypercapnia possible pneumonia possible demand ischemia PLAN care noted an reviewed on vent Wean PEEP, Hold feeds, wean vent in AM monitor AC rate monitor acid base antibiotics and cultures noted and reviewed hydration with caution supportive care ICU care nutrition medications/laboratory data/nursing notes/ICU care reviewed in detail note reviewed and edited care discussed with RN and RT ICU time spent 40 minutes Critical Care - Subjective Interval Events: care noted on oxygen ROS Limited/Unobtainable: Yes Condition: critical EKG Rhythm: Sinus Rhythm Critical Care - Objective ET-Tube: 7.5 ET Position: 23 Vital Signs Noted Objective: Sp02 EP Interpretation: reviewed, normal General Appearance: normal inspection, well appearing, no apparent distress, sedated Head: normocephalic, atraumatic Eyes: bilateral eye normal inspection ENT: oral ETT Neck: normal inspection, full range of motion, supple, no meningismus, carotid 2+ Respiratory: decreased breath sounds, moderate breath sounds with some rhonchi left Cardiovascular #1: regular rhythm, no murmur without MRG; Gastrointestinal: non tender, soft, non-distended, no guarding, no rebound Musculoskeletal: no CCE Neurologic: sedated reviewed and edited Micro: Microbiology Date/Time Source Procedure Growth Status 12/21/18 13:30 Blood Blood Culture - Preliminary NO GROWTH Resulted Critical Care - Objective Last 24 Hour Vital Signs Date Time Temp Pulse Resp B/P (MAP) Pulse Ox O2 Delivery O2 Flow Rate FiO2 12/25/18 19:08 81 18 50 12/25/18 19:00 83 19 141/59 (86) 100 12/25/18 18:00 79 20 122/75 (91) 100 12/25/18 17:00 99.3 83 23 131/106 (114) 100 12/25/18 16:49 84 26 40 12/25/18 16:16 50 12/25/18 16:13 50 12/25/18 16:00 89 12/25/18 16:00 Mechanical Ventilator 12/25/18 16:00 83 22 128/91 (103) 100 12/25/18 15:15 80 23 40 12/25/18 15:00 84 22 147/105 (119) 100 12/25/18 14:00 87 22 159/76 (103) 100 12/25/18 13:08 84 20 40 12/25/18 13:00 99.5 81 20 141/65 (90) 100 12/25/18 12:00 81 21 125/73 (90) 100 12/25/18 12:00 40 12/25/18 12:00 78 12/25/18 12:00 Mechanical Ventilator 12/25/18 11:11 80 17 40 12/25/18 11:00 83 17 131/62 (85) 100 12/25/18 10:35 85 19 100 Mechanical Ventilator 12/25/18 10:00 93 28 141/67 (91) 100 12/25/18 09:00 99.2 85 21 112/55 (74) 100 12/25/18 08:52 85 19 40 12/25/18 08:00 40 12/25/18 08:00 99.2 85 18 110/86 (94) 100 12/25/18 08:00 Mechanical Ventilator 12/25/18 08:00 83 12/25/18 07:26 81 19 40 12/25/18 07:00 86 20 104/61 (75) 100 12/25/18 06:00 99.6 83 20 106/54 (71) 100 12/25/18 05:00 90 23 119/64 (82) 100 12/25/18 05:00 88 19 40 12/25/18 04:00 99.1 88 20 119/62 (81) 100 12/25/18 04:00 74 12/25/18 04:00 40 12/25/18 04:00 Mechanical Ventilator 12/25/18 03:29 89 20 99 Mechanical Ventilator 40 12/25/18 03:15 89 20 40 12/25/18 03:00 79 18 121/65 (83) 100 12/25/18 02:00 82 21 136/62 (86) 100 12/25/18 01:28 81 18 40 12/25/18 01:00 80 20 128/62 (84) 100 12/25/18 00:00 40 12/25/18 00:00 Mechanical Ventilator 12/25/18 00:00 83 12/25/18 00:00 99.3 81 15 125/60 (81) 100 12/24/18 23:22 82 19 40 12/24/18 23:00 77 20 127/65 (85) 100 12/24/18 22:00 68 21 130/71 (90) 100 12/24/18 21:19 73 23 40 12/24/18 21:00 70 20 129/60 (83) 100 Accucheck: 122 Critical Care - Subjective ROS Limited/Unobtainable: No Condition: improving FI02: 50 Vent Support Breath Rate: 15 Vent Support Mode: AC Vent Tidal Volume: 500 Sputum Amount: Small PEEP: 8.0 PIP: 29 Tube Feeding Amount: 40 I&O: Intake and Output 12/24/18 12/25/18 19:00 07:00 Intake Total 1527.4 ml 1170 ml Output Total 1175 ml 515 ml Balance 352.4 ml 655 ml Intake Free Water 200 ml 100 ml IV Total 607.4 ml 590 ml Tube Feeding 480 ml 480 ml Other 240 ml Output Urine Total 1025 ml 515 ml Stool Total 150 ml ET-Tube: 7.5 ET Position: 23 Minh Dunbar MD Dec 25, 2018 20:11
--- NOTE | 2018-12-25 20:36 | General Progress Note ---
Assessment/Plan Problem List: (1) Anemia, chronic disease ICD Codes: D63.8 - Anemia in other chronic diseases classified elsewhere SNOMED: 318070081, 887303241 (2) Severe dehydration ICD Codes: E86.0 - Dehydration SNOMED: 667793736, 920096077 (3) Hyperglycemia due to type 2 diabetes mellitus ICD Codes: E11.65 - Type 2 diabetes mellitus with hyperglycemia SNOMED: 400543137406921, 06516634 Qualifiers: Qualified Codes: E11.65 - Type 2 diabetes mellitus with hyperglycemia; Z79.4 - MCFP (current) use of insulin (4) Acute metabolic encephalopathy ICD Codes: G93.41 - Metabolic encephalopathy SNOMED: 29999092, 973475629 (5) Hypotension ICD Codes: I95.9 - Hypotension, unspecified SNOMED: 93326592 (6) ARF (acute renal failure) ICD Codes: N17.9 - Acute kidney failure, unspecified SNOMED: 64093253, 747020143 Qualifiers: Qualified Codes: N17.9 - Acute kidney failure, unspecified (7) Respiratory failure with hypoxia ICD Codes: J96.91 - Respiratory failure, unspecified with hypoxia SNOMED: 31283697088859587, 885071724 Qualifiers: Qualified Codes: J96.01 - Acute respiratory failure with hypoxia (8) Renal failure (ARF), acute on chronic ICD Codes: N17.9 - Acute kidney failure, unspecified; N18.9 - Chronic kidney disease, unspecified SNOMED: 087165673 (9) Anemia ICD Codes: D64.9 - Anemia, unspecified SNOMED: 542582197 Status: stable, progressing Assessment/Plan: resp failure pna.n anemia improved sacral decub azotemia not hypoxic reviewed chart and labs Subjective ROS Limited/Unobtainable: Yes Allergies: Coded Allergies: ALLOPURINOL (Verified Allergy, Unknown, 12/20/18) Objective Last 24 Hour Vital Signs Date Time Temp Pulse Resp B/P (MAP) Pulse Ox O2 Delivery O2 Flow Rate FiO2 12/25/18 19:08 81 18 50 12/25/18 19:00 83 19 141/59 (86) 100 12/25/18 18:00 79 20 122/75 (91) 100 12/25/18 17:00 99.3 83 23 131/106 (114) 100 12/25/18 16:49 84 26 40 12/25/18 16:16 50 12/25/18 16:13 50 12/25/18 16:00 89 12/25/18 16:00 Mechanical Ventilator 12/25/18 16:00 83 22 128/91 (103) 100 12/25/18 15:15 80 23 40 12/25/18 15:00 84 22 147/105 (119) 100 12/25/18 14:00 87 22 159/76 (103) 100 12/25/18 13:08 84 20 40 12/25/18 13:00 99.5 81 20 141/65 (90) 100 12/25/18 12:00 81 21 125/73 (90) 100 12/25/18 12:00 40 12/25/18 12:00 78 12/25/18 12:00 Mechanical Ventilator 12/25/18 11:11 80 17 40 12/25/18 11:00 83 17 131/62 (85) 100 12/25/18 10:35 85 19 100 Mechanical Ventilator 12/25/18 10:00 93 28 141/67 (91) 100 12/25/18 09:00 99.2 85 21 112/55 (74) 100 12/25/18 08:52 85 19 40 12/25/18 08:00 40 12/25/18 08:00 99.2 85 18 110/86 (94) 100 12/25/18 08:00 Mechanical Ventilator 12/25/18 08:00 83 12/25/18 07:26 81 19 40 12/25/18 07:00 86 20 104/61 (75) 100 12/25/18 06:00 99.6 83 20 106/54 (71) 100 12/25/18 05:00 90 23 119/64 (82) 100 12/25/18 05:00 88 19 40 12/25/18 04:00 99.1 88 20 119/62 (81) 100 12/25/18 04:00 74 12/25/18 04:00 40 12/25/18 04:00 Mechanical Ventilator 12/25/18 03:29 89 20 99 Mechanical Ventilator 40 12/25/18 03:15 89 20 40 12/25/18 03:00 79 18 121/65 (83) 100 12/25/18 02:00 82 21 136/62 (86) 100 12/25/18 01:28 81 18 40 12/25/18 01:00 80 20 128/62 (84) 100 12/25/18 00:00 40 12/25/18 00:00 Mechanical Ventilator 12/25/18 00:00 83 12/25/18 00:00 99.3 81 15 125/60 (81) 100 12/24/18 23:22 82 19 40 12/24/18 23:00 77 20 127/65 (85) 100 12/24/18 22:00 68 21 130/71 (90) 100 12/24/18 21:19 73 23 40 12/24/18 21:00 70 20 129/60 (83) 100 Intake and Output 12/24/18 12/25/18 19:00 07:00 Intake Total 1527.4 ml 1170 ml Output Total 1175 ml 515 ml Balance 352.4 ml 655 ml Intake Free Water 200 ml 100 ml IV Total 607.4 ml 590 ml Tube Feeding 480 ml 480 ml Other 240 ml Output Urine Total 1025 ml 515 ml Stool Total 150 ml Laboratory Tests 12/25/18 04:00: White Blood Count 12.5H, Red Blood Count 3.63L, Hemoglobin 9.8L, Hematocrit 30.6L, Mean Corpuscular Volume 84, Mean Corpuscular Hemoglobin 27.0, Mean Corpuscular Hemoglobin Concent 32.1, Red Cell Distribution Width 15.2H, Platelet Count 258, Mean Platelet Volume 7.8, Neutrophils (%) (Auto) 66.2, Lymphocytes (%) (Auto) 29.5, Monocytes (%) (Auto) 2.9, Eosinophils (%) (Auto) 0.9, Basophils (%) (Auto) 0.4, Sodium Level 145, Potassium Level 3.8, Chloride Level 111H, Carbon Dioxide Level 24, Anion Gap 10, Blood Urea Nitrogen 28H, Creatinine 1.1, Estimat Glomerular Filtration Rate , Glucose Level 81, Calcium Level 8.4L Height (Feet): 5 Height (Inches): 6.00 Weight (Pounds): 200 Neck: supple Cardiovascular: normal rate Respiratory/Chest: lungs clear Abdomen: soft Danial Walden MD Dec 25, 2018 20:36
[2018-12-25] MEDS ORDERED: Heparin 5000 units/ml inj SUBQ SCH (21:00)
[2018-12-25] MEDS: Dyna-Hex 2% Top Sol 2oz TOPIC SCH (21:03)
[2018-12-26] VITALS (24 sets, daily range): BP systolic 120–165; BP diastolic 47–64
[2018-12-26] MEDS: NovoLOG Insulin Flexpen SUBQ SCH ×4 (06:00→17:50)
--- NOTE | 2018-12-26 07:03 | General Progress Note ---
Assessment/Plan Problem List: (1) Sepsis ICD Codes: A41.9 - Sepsis, unspecified organism SNOMED: 04667543, 650190534 Qualifiers: Qualified Codes: A41.9 - Sepsis, unspecified organism (2) HCAP (healthcare-associated pneumonia) ICD Codes: J18.9 - Pneumonia, unspecified organism SNOMED: 018180873, 040365358 (3) Sacral decubitus ulcer, stage IV ICD Codes: L89.154 - Pressure ulcer of sacral region, stage 4 SNOMED: 679053497, 834555407 (4) Hyperglycemia due to type 2 diabetes mellitus ICD Codes: E11.65 - Type 2 diabetes mellitus with hyperglycemia SNOMED: 286179653782305, 38393705 Qualifiers: Qualified Codes: E11.65 - Type 2 diabetes mellitus with hyperglycemia; Z79.4 - USP (current) use of insulin (5) Acute metabolic encephalopathy ICD Codes: G93.41 - Metabolic encephalopathy SNOMED: 70616398, 411931892 (6) ARF (acute renal failure) ICD Codes: N17.9 - Acute kidney failure, unspecified SNOMED: 79882060, 358709709 Qualifiers: Qualified Codes: N17.9 - Acute kidney failure, unspecified (7) Respiratory failure with hypoxia ICD Codes: J96.91 - Respiratory failure, unspecified with hypoxia SNOMED: 66203457414568094, 401860724 Qualifiers: Qualified Codes: J96.01 - Acute respiratory failure with hypoxia Status: stable, progressing Assessment/Plan: reduce Levemir to 6 units bid continue NISS every 6 hours Subjective ROS Limited/Unobtainable: Yes Allergies: Coded Allergies: ALLOPURINOL (Verified Allergy, Unknown, 12/20/18) Subjective events noted Item Value Date Time Bedside Blood Glucose 86 mg/dl 12/26/18 0600 Bedside Blood Glucose 90 mg/dl 12/26/18 0000 Bedside Blood Glucose 122 mg/dl H 12/25/18 1800 Bedside Blood Glucose 153 mg/dl H 12/25/18 1304 Bedside Blood Glucose 115 mg/dl 12/25/18 0935 Bedside Blood Glucose 105 mg/dl 12/25/18 0600 Bedside Blood Glucose 84 mg/dl 12/25/18 0000 Objective Last 24 Hour Vital Signs Date Time Temp Pulse Resp B/P (MAP) Pulse Ox O2 Delivery O2 Flow Rate FiO2 12/26/18 06:49 60 15 40 12/26/18 06:00 63 16 127/64 (85) 100 12/26/18 05:02 74 16 40 12/26/18 05:00 65 16 165/56 (92) 100 12/26/18 04:00 Mechanical Ventilator 12/26/18 04:00 99.0 59 16 147/64 (91) 100 12/26/18 04:00 40 12/26/18 04:00 63 12/26/18 03:29 71 16 40 12/26/18 03:00 73 17 139/58 (85) 100 12/26/18 02:00 70 15 136/55 (82) 100 12/26/18 01:05 68 18 40 12/26/18 01:00 69 19 141/60 (87) 100 12/26/18 00:00 Mechanical Ventilator 12/26/18 00:00 86 12/26/18 00:00 22 19 131/50 (77) 100 12/26/18 00:00 98.8 74 19 140/58 (85) 100 12/26/18 00:00 50 12/25/18 23:08 75 19 50 12/25/18 22:00 74 19 131/50 (77) 100 12/25/18 21:00 81 21 154/57 (89) 100 12/25/18 20:54 78 18 50 12/25/18 20:00 50 12/25/18 20:00 Mechanical Ventilator 12/25/18 20:00 99.0 75 17 132/53 (79) 100 12/25/18 20:00 50 12/25/18 19:08 81 18 50 12/25/18 19:00 83 19 141/59 (86) 100 12/25/18 18:00 79 20 122/75 (91) 100 12/25/18 17:00 99.3 83 23 131/106 (114) 100 12/25/18 16:49 84 26 40 12/25/18 16:16 50 12/25/18 16:13 50 12/25/18 16:00 89 12/25/18 16:00 Mechanical Ventilator 12/25/18 16:00 83 22 128/91 (103) 100 12/25/18 15:15 80 23 40 12/25/18 15:00 84 22 147/105 (119) 100 12/25/18 14:00 87 22 159/76 (103) 100 12/25/18 13:08 84 20 40 12/25/18 13:00 99.5 81 20 141/65 (90) 100 12/25/18 12:00 81 21 125/73 (90) 100 12/25/18 12:00 40 12/25/18 12:00 78 12/25/18 12:00 Mechanical Ventilator 12/25/18 11:11 80 17 40 12/25/18 11:00 83 17 131/62 (85) 100 12/25/18 10:35 85 19 100 Mechanical Ventilator 12/25/18 10:00 93 28 141/67 (91) 100 12/25/18 09:00 99.2 85 21 112/55 (74) 100 12/25/18 08:52 85 19 40 12/25/18 08:00 40 12/25/18 08:00 99.2 85 18 110/86 (94) 100 12/25/18 08:00 Mechanical Ventilator 12/25/18 08:00 83 12/25/18 07:26 81 19 40 Intake and Output 12/25/18 12/26/18 18:59 06:59 Intake Total 1345.562 ml 682 ml Output Total 910 ml 770 ml Balance 435.562 ml -88 ml Intake Free Water 100 ml 30 ml IV Total 765.562 ml 292 ml Tube Feeding 480 ml 360 ml Output Urine Total 660 ml 520 ml Stool Total 250 ml 250 ml Height (Feet): 5 Height (Inches): 6.00 Weight (Pounds): 210 General Appearance: moderate distress Neck: normal alignment Cardiovascular: tachycardia Respiratory/Chest: decreased breath sounds Abdomen: normal bowel sounds Pelvis: normal external exam Objective Current Medications Medications (Trade) Dose Ordered Sig/Nora Route PRN Reason Start Time Stop Time Status Last Admin Dose Admin Acetaminophen (Tylenol) 650 mg Q4H PRN ORAL Mild Pain/Temp > 100.5 12/20/18 06:30 01/19/19 06:29 12/23/18 20:58 Ceftriaxone Sodium 1 gm/ Dextrose 55 ml @ 110 mls/hr Q24H IVPB 12/25/18 12:00 01/01/19 11:59 12/25/18 12:59 Chlorhexidine Gluconate (Valentina-Hex 2%) 1 applic DAILY@2000 TOPIC 12/22/18 20:00 01/21/19 19:59 12/25/18 21:03 Clonidine HCl (Catapres Tab) 0.1 mg Q4H PRN GT SBP > 170mmHg 12/25/18 14:30 01/24/19 14:29 Dextrose 1,000 ml @ 30 mls/hr Q24H IV 12/25/18 15:30 01/24/19 15:29 12/25/18 15:41 Dextrose (Dextrose 50%) 25 ml Q30M PRN IV Hypoglycemia 12/20/18 19:00 01/19/19 18:59 Dextrose (Dextrose 50%) 50 ml Q30M PRN IV Hypoglycemia 12/20/18 19:00 01/19/19 18:59 Insulin Aspart (NovoLOG) Q6HR SUBQ 12/20/18 12:00 01/19/19 11:59 12/25/18 17:33 Insulin Detemir (Levemir) 9 units BID SUBQ 12/25/18 09:00 01/20/19 08:59 12/25/18 17:33 Lansoprazole (Prevacid) 30 mg BID GT 12/20/18 18:00 01/20/19 08:59 12/25/18 17:26 Lorazepam (Ativan 2mg/ml 1ml) 1 mg Q3H PRN IV For Anxiety 12/22/18 09:00 12/29/18 08:59 12/22/18 16:07 Norepinephrine Bitartrate 4 mg/ Dextrose 250 ml @ 0 mls/hr Q24H IV 12/20/18 07:00 01/19/19 06:59 12/20/18 18:25 Vancomycin HCl (Vanco rx to dose) 1 ea DAILY PRN MISC Per rx protocol 12/20/18 11:00 01/19/19 10:59 Vancomycin HCl 1 gm/Dextrose 275 ml @ 183.708 mls/hr Q24H IVPB 12/24/18 09:00 12/29/18 08:59 12/25/18 09:25 Pablo Day MD Dec 26, 2018 07:03
[2018-12-26] MEDS: Levemir Flexpen SUBQ SCH ×2 (09:00→17:53)
[2018-12-26] MEDS: Vancomycin 1gm/D5W 275ml IVPB SCH ×2 (09:00)
[2018-12-26] MEDS ORDERED: Acetaminophen 650mg/20.3ml GT PRN (11:00)
--- NOTE | 2018-12-26 11:21 | Cardiac Electrophysiology PN ---
Assessment/Plan Assessment/Plan 1. S/P septic and hypovolemic shock in view of high lactic acid of 7.5 as well as severe dehydration. The patient has received 5 liters of normal saline. Off Levophed. EF 50 to 55 percent. Continue iv fluids 2. Troponin leak due to renal failure. EKG does not show any acute ST-T wave abnormality and shows sinus tachycardia of 102 with only left atrial enlargement. 3. Respiratory failure. On the ventilator and IV antibiotics. Failed weaning 4. Transient bradycardia. Will start Dopamine if recurs and persists 5. Status post colostomy bag. 6. Severe dehydration with renal failure and hypernatremia. On IV fluids per Dr. Cifuentes. 7. Stage IV sacral decubitus ulcer. 8. Anemia of chronic disease. S/p PRBC . 9. Dysphagia, status post PEG placement. WELLINGTON RN Subjective Subjective Off pressors in ICU on the vent. Failed weaning Objective Last 24 Hour Vital Signs Date Time Temp Pulse Resp B/P (MAP) Pulse Ox O2 Delivery O2 Flow Rate FiO2 12/26/18 11:05 90 26 40 12/26/18 09:02 100 12/26/18 08:48 78 26 40 40 12/26/18 08:00 40 12/26/18 08:00 99.1 62 15 139/53 (81) 100 12/26/18 08:00 Mechanical Ventilator 12/26/18 07:09 63 16 124/64 (84) 100 12/26/18 07:00 142/66 12/26/18 06:49 60 15 40 12/26/18 06:00 63 16 127/64 (85) 100 12/26/18 05:02 74 16 40 12/26/18 05:00 65 16 165/56 (92) 100 12/26/18 04:00 Mechanical Ventilator 12/26/18 04:00 99.0 59 16 147/64 (91) 100 12/26/18 04:00 40 12/26/18 04:00 63 12/26/18 03:29 71 16 40 12/26/18 03:00 73 17 139/58 (85) 100 12/26/18 02:00 70 15 136/55 (82) 100 12/26/18 01:05 68 18 40 12/26/18 01:00 69 19 141/60 (87) 100 12/26/18 00:00 Mechanical Ventilator 12/26/18 00:00 86 12/26/18 00:00 22 19 131/50 (77) 100 12/26/18 00:00 98.8 74 19 140/58 (85) 100 12/26/18 00:00 50 12/25/18 23:08 75 19 50 12/25/18 22:00 74 19 131/50 (77) 100 12/25/18 21:00 81 21 154/57 (89) 100 12/25/18 20:54 78 18 50 12/25/18 20:00 50 12/25/18 20:00 Mechanical Ventilator 12/25/18 20:00 99.0 75 17 132/53 (79) 100 12/25/18 20:00 50 12/25/18 19:08 81 18 50 12/25/18 19:00 83 19 141/59 (86) 100 12/25/18 18:00 79 20 122/75 (91) 100 12/25/18 17:00 99.3 83 23 131/106 (114) 100 12/25/18 16:49 84 26 40 12/25/18 16:16 50 12/25/18 16:13 50 12/25/18 16:00 89 12/25/18 16:00 Mechanical Ventilator 12/25/18 16:00 83 22 128/91 (103) 100 12/25/18 15:15 80 23 40 12/25/18 15:00 84 22 147/105 (119) 100 12/25/18 14:00 87 22 159/76 (103) 100 12/25/18 13:08 84 20 40 12/25/18 13:00 99.5 81 20 141/65 (90) 100 12/25/18 12:00 81 21 125/73 (90) 100 12/25/18 12:00 40 12/25/18 12:00 78 12/25/18 12:00 Mechanical Ventilator Intake and Output 12/25/18 12/26/18 19:00 07:00 Intake Total 1305.562 ml 732 ml Output Total 910 ml 720 ml Balance 395.562 ml 12 ml Intake Free Water 100 ml 30 ml IV Total 725.562 ml 382 ml Tube Feeding 480 ml 320 ml Output Urine Total 660 ml 470 ml Stool Total 250 ml 250 ml Laboratory Tests Test 12/26/18 09:23 12/26/18 09:35 Vancomycin Level Trough 22.1 ug/mL (5.0-12.0) H Arterial Blood pH 7.447 (7.350-7.450) Arterial Blood Partial Pressure CO2 30.4 mmHg (35.0-45.0) L Arterial Blood Partial Pressure O2 74.0 mmHg (75.0-100.0) L Arterial Blood HCO3 20.5 mmol/L (22.0-26.0) L Arterial Blood Oxygen Saturation 95.5 % (95-100) Arterial Blood Base Excess -3.0 (-2-2) L Brock Test Positive Objective HEAD AND NECK: No JVD. LUNGS: Coarse rhonchi orally intubated. CARDIOVASCULAR:Tachycardic, S1, S2 with no gallop or murmur. ABDOMEN: Soft and nontender. EXTREMITIES: No pitting edema. G-tube and a colostomy bag in place. Logan Singh MD Dec 26, 2018 11:21
--- NOTE | 2018-12-26 11:42 | Nephrology Progress Note ---
Assessment/Plan Problem List: (1) Renal failure (ARF), acute on chronic (2) Sepsis (3) Severe dehydration (4) Hyperglycemia due to type 2 diabetes mellitus (5) Hypotension (6) Respiratory failure with hypoxia (7) Anemia (8) PEG (percutaneous endoscopic gastrostomy) status (9) Colostomy status Assessment Acute renal failure- Multifactorial, Pre Renal on Renal DM OOC Respiratory failure, acute- on Vent in ICU sepsis / Shock sacral ulcer hypernatremia due to water deficit severe protein calorie malnutrition and hypoalbuminemia hypoxemia, severe PEG COlostomy Severe Anemia underlying Plan fluids- k , Phos , Mag supplement as needed water via GT antibiotics pressors pulm support 1.5 Units PRBCs transfused 12/20 feeding monitor renal parameters Subjective ROS Limited/Unobtainable: Yes Objective Objective Last 24 Hour Vital Signs Date Time Temp Pulse Resp B/P (MAP) Pulse Ox O2 Delivery O2 Flow Rate FiO2 12/26/18 11:05 90 26 40 12/26/18 09:02 100 12/26/18 08:48 78 26 40 40 12/26/18 08:00 40 12/26/18 08:00 99.1 62 15 139/53 (81) 100 12/26/18 08:00 Mechanical Ventilator 12/26/18 07:09 63 16 124/64 (84) 100 12/26/18 07:00 142/66 12/26/18 06:49 60 15 40 12/26/18 06:00 63 16 127/64 (85) 100 12/26/18 05:02 74 16 40 12/26/18 05:00 65 16 165/56 (92) 100 12/26/18 04:00 Mechanical Ventilator 12/26/18 04:00 99.0 59 16 147/64 (91) 100 12/26/18 04:00 40 12/26/18 04:00 63 12/26/18 03:29 71 16 40 12/26/18 03:00 73 17 139/58 (85) 100 12/26/18 02:00 70 15 136/55 (82) 100 12/26/18 01:05 68 18 40 12/26/18 01:00 69 19 141/60 (87) 100 12/26/18 00:00 Mechanical Ventilator 12/26/18 00:00 86 12/26/18 00:00 22 19 131/50 (77) 100 12/26/18 00:00 98.8 74 19 140/58 (85) 100 12/26/18 00:00 50 12/25/18 23:08 75 19 50 12/25/18 22:00 74 19 131/50 (77) 100 12/25/18 21:00 81 21 154/57 (89) 100 12/25/18 20:54 78 18 50 12/25/18 20:00 50 12/25/18 20:00 Mechanical Ventilator 12/25/18 20:00 99.0 75 17 132/53 (79) 100 12/25/18 20:00 50 12/25/18 19:08 81 18 50 12/25/18 19:00 83 19 141/59 (86) 100 12/25/18 18:00 79 20 122/75 (91) 100 12/25/18 17:00 99.3 83 23 131/106 (114) 100 12/25/18 16:49 84 26 40 12/25/18 16:16 50 12/25/18 16:13 50 12/25/18 16:00 89 12/25/18 16:00 Mechanical Ventilator 12/25/18 16:00 83 22 128/91 (103) 100 12/25/18 15:15 80 23 40 12/25/18 15:00 84 22 147/105 (119) 100 12/25/18 14:00 87 22 159/76 (103) 100 12/25/18 13:08 84 20 40 12/25/18 13:00 99.5 81 20 141/65 (90) 100 12/25/18 12:00 81 21 125/73 (90) 100 12/25/18 12:00 40 12/25/18 12:00 78 12/25/18 12:00 Mechanical Ventilator Intake and Output 12/25/18 12/26/18 19:00 07:00 Intake Total 1305.562 ml 732 ml Output Total 910 ml 720 ml Balance 395.562 ml 12 ml Intake Free Water 100 ml 30 ml IV Total 725.562 ml 382 ml Tube Feeding 480 ml 320 ml Output Urine Total 660 ml 470 ml Stool Total 250 ml 250 ml Laboratory Tests 12/26/18 09:23: Vancomycin Level Trough 22.1H 12/26/18 09:35: Arterial Blood pH 7.447, Arterial Blood Partial Pressure CO2 30.4L, Arterial Blood Partial Pressure O2 74.0L, Arterial Blood HCO3 20.5L, Arterial Blood Oxygen Saturation 95.5, Arterial Blood Base Excess -3.0L, Brock Test Positive Height (Feet): 5 Height (Inches): 6.00 Weight (Pounds): 210 General Appearance: no apparent distress EENT: other - remains intubated Cardiovascular: normal rate Respiratory/Chest: decreased breath sounds Abdomen: distended Objective no change Servando Cifuentes MD Dec 26, 2018 11:42
--- NOTE | 2018-12-26 12:01 | General Progress Note ---
Assessment/Plan Problem List: (1) Colostomy status ICD Codes: Z93.3 - Colostomy status SNOMED: 45944370, 429474599, 338404171 (2) PEG (percutaneous endoscopic gastrostomy) status ICD Codes: Z93.1 - Gastrostomy status SNOMED: 535119698, 661417296 (3) Anemia ICD Codes: D64.9 - Anemia, unspecified SNOMED: 918624903 (4) Respiratory failure with hypoxia ICD Codes: J96.91 - Respiratory failure, unspecified with hypoxia SNOMED: 78105903467594763, 071386451 Qualifiers: Qualified Codes: J96.01 - Acute respiratory failure with hypoxia Status: stable, progressing Assessment/Plan: respiratory failure sepsis ARF G Tube dependent colostomy dependent GTF anemia work up OB stool r/o GI bleed pending read monitor H&H, prn transfusions bowel regimen ppi electrolyte correction fu labs GI procedures only if emergent Subjective ROS Limited/Unobtainable: No Allergies: Coded Allergies: ALLOPURINOL (Verified Allergy, Unknown, 12/20/18) Objective Last 24 Hour Vital Signs Date Time Temp Pulse Resp B/P (MAP) Pulse Ox O2 Delivery O2 Flow Rate FiO2 12/26/18 11:05 90 26 40 12/26/18 11:00 88 26 140/53 (82) 100 12/26/18 10:00 85 26 143/58 (86) 100 12/26/18 09:02 100 12/26/18 09:00 80 25 143/55 (84) 100 12/26/18 08:48 78 26 40 40 12/26/18 08:00 40 12/26/18 08:00 64 12/26/18 08:00 99.1 62 15 139/53 (81) 100 12/26/18 08:00 Mechanical Ventilator 12/26/18 07:09 63 16 124/64 (84) 100 12/26/18 07:00 142/66 12/26/18 06:49 60 15 40 12/26/18 06:00 63 16 127/64 (85) 100 12/26/18 05:02 74 16 40 12/26/18 05:00 65 16 165/56 (92) 100 12/26/18 04:00 Mechanical Ventilator 12/26/18 04:00 99.0 59 16 147/64 (91) 100 12/26/18 04:00 40 12/26/18 04:00 63 12/26/18 03:29 71 16 40 12/26/18 03:00 73 17 139/58 (85) 100 12/26/18 02:00 70 15 136/55 (82) 100 12/26/18 01:05 68 18 40 12/26/18 01:00 69 19 141/60 (87) 100 12/26/18 00:00 Mechanical Ventilator 12/26/18 00:00 86 12/26/18 00:00 22 19 131/50 (77) 100 12/26/18 00:00 98.8 74 19 140/58 (85) 100 12/26/18 00:00 50 12/25/18 23:08 75 19 50 12/25/18 22:00 74 19 131/50 (77) 100 12/25/18 21:00 81 21 154/57 (89) 100 12/25/18 20:54 78 18 50 12/25/18 20:00 50 12/25/18 20:00 Mechanical Ventilator 12/25/18 20:00 99.0 75 17 132/53 (79) 100 12/25/18 20:00 50 12/25/18 19:08 81 18 50 12/25/18 19:00 83 19 141/59 (86) 100 12/25/18 18:00 79 20 122/75 (91) 100 12/25/18 17:00 99.3 83 23 131/106 (114) 100 12/25/18 16:49 84 26 40 12/25/18 16:16 50 12/25/18 16:13 50 12/25/18 16:00 89 12/25/18 16:00 Mechanical Ventilator 12/25/18 16:00 83 22 128/91 (103) 100 12/25/18 15:15 80 23 40 12/25/18 15:00 84 22 147/105 (119) 100 12/25/18 14:00 87 22 159/76 (103) 100 12/25/18 13:08 84 20 40 12/25/18 13:00 99.5 81 20 141/65 (90) 100 Intake and Output 12/25/18 12/26/18 19:00 07:00 Intake Total 1305.562 ml 732 ml Output Total 910 ml 720 ml Balance 395.562 ml 12 ml Intake Free Water 100 ml 30 ml IV Total 725.562 ml 382 ml Tube Feeding 480 ml 320 ml Output Urine Total 660 ml 470 ml Stool Total 250 ml 250 ml Laboratory Tests 12/26/18 09:23: Vancomycin Level Trough 22.1H 12/26/18 09:35: Arterial Blood pH 7.447, Arterial Blood Partial Pressure CO2 30.4L, Arterial Blood Partial Pressure O2 74.0L, Arterial Blood HCO3 20.5L, Arterial Blood Oxygen Saturation 95.5, Arterial Blood Base Excess -3.0L, Brock Test Positive Height (Feet): 5 Height (Inches): 6.00 Weight (Pounds): 210 General Appearance: alert EENT: normal ENT inspection Neck: supple Cardiovascular: normal rate Respiratory/Chest: decreased breath sounds Abdomen: normal bowel sounds, non tender, soft Extremities: non-tender Horacio Vora MD Dec 26, 2018 12:01
[2018-12-26] MEDS: cefTRIAXone 1 GM in D5W 55 ML IVPB SCH (12:16)
--- NOTE | 2018-12-26 12:40 | Infectious Diseases Prog Note ---
Assessment/Plan Assessment/Plan A 1. MRSA pneumonia 2. E.coli UTI 3. shock 4. renal failure improving 5. respiratory failure 6. diabetes mellitus 7. 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 continue iv vancomycin & Rocephin 2. CXR in am Subjective ROS Limited/Unobtainable: Yes Respiratory: Reports: other - failed weaning Gastrointestinal/Abdominal: Denies: diarrhea Neurologic: Reports: confusion, other - on restraint Allergies: Coded Allergies: ALLOPURINOL (Verified Allergy, Unknown, 12/20/18) Objective Vital Signs Last 24 Hour Vital Signs Date Time Temp Pulse Resp B/P (MAP) Pulse Ox O2 Delivery O2 Flow Rate FiO2 12/26/18 11:05 90 26 40 12/26/18 11:00 88 26 140/53 (82) 100 12/26/18 10:00 85 26 143/58 (86) 100 12/26/18 09:02 100 12/26/18 09:00 80 25 143/55 (84) 100 12/26/18 08:48 78 26 40 40 12/26/18 08:00 40 12/26/18 08:00 64 12/26/18 08:00 99.1 62 15 139/53 (81) 100 12/26/18 08:00 Mechanical Ventilator 12/26/18 07:09 63 16 124/64 (84) 100 12/26/18 07:00 142/66 12/26/18 06:49 60 15 40 12/26/18 06:00 63 16 127/64 (85) 100 12/26/18 05:02 74 16 40 12/26/18 05:00 65 16 165/56 (92) 100 12/26/18 04:00 Mechanical Ventilator 12/26/18 04:00 99.0 59 16 147/64 (91) 100 12/26/18 04:00 40 12/26/18 04:00 63 12/26/18 03:29 71 16 40 12/26/18 03:00 73 17 139/58 (85) 100 12/26/18 02:00 70 15 136/55 (82) 100 12/26/18 01:05 68 18 40 12/26/18 01:00 69 19 141/60 (87) 100 12/26/18 00:00 Mechanical Ventilator 12/26/18 00:00 86 12/26/18 00:00 22 19 131/50 (77) 100 12/26/18 00:00 98.8 74 19 140/58 (85) 100 12/26/18 00:00 50 12/25/18 23:08 75 19 50 12/25/18 22:00 74 19 131/50 (77) 100 12/25/18 21:00 81 21 154/57 (89) 100 12/25/18 20:54 78 18 50 12/25/18 20:00 50 12/25/18 20:00 Mechanical Ventilator 12/25/18 20:00 99.0 75 17 132/53 (79) 100 12/25/18 20:00 50 12/25/18 19:08 81 18 50 12/25/18 19:00 83 19 141/59 (86) 100 12/25/18 18:00 79 20 122/75 (91) 100 12/25/18 17:00 99.3 83 23 131/106 (114) 100 12/25/18 16:49 84 26 40 12/25/18 16:16 50 12/25/18 16:13 50 12/25/18 16:00 89 12/25/18 16:00 Mechanical Ventilator 12/25/18 16:00 83 22 128/91 (103) 100 12/25/18 15:15 80 23 40 12/25/18 15:00 84 22 147/105 (119) 100 12/25/18 14:00 87 22 159/76 (103) 100 12/25/18 13:08 84 20 40 12/25/18 13:00 99.5 81 20 141/65 (90) 100 Height (Feet): 5 Height (Inches): 6.00 Weight (Pounds): 210 HEENT: mucous membranes moist, other - orally intubated Cardiovascular: normal rate, other - RIJ central line Abdomen: soft, non tender Extremities: no edema, other - scar of R knee surgery Neurologic/Psychiatric: unresponsiveness Laboratory Tests Test 12/26/18 09:23 12/26/18 09:35 Vancomycin Level Trough 22.1 ug/mL (5.0-12.0) H Arterial Blood pH 7.447 (7.350-7.450) Arterial Blood Partial Pressure CO2 30.4 mmHg (35.0-45.0) L Arterial Blood Partial Pressure O2 74.0 mmHg (75.0-100.0) L Arterial Blood HCO3 20.5 mmol/L (22.0-26.0) L Arterial Blood Oxygen Saturation 95.5 % (95-100) Arterial Blood Base Excess -3.0 (-2-2) L Brock Test Positive Current Medications Medications (Trade) Dose Ordered Sig/Nora Route PRN Reason Start Time Stop Time Status Last Admin Dose Admin Acetaminophen (Tylenol) 650 mg Q4H PRN GT Mild Pain/Temp > 100.5 12/26/18 11:00 01/25/19 10:59 Ceftriaxone Sodium 1 gm/ Dextrose 55 ml @ 110 mls/hr Q24H IVPB 12/25/18 12:00 01/01/19 11:59 12/26/18 12:16 Chlorhexidine Gluconate (Valentina-Hex 2%) 1 applic DAILY@2000 TOPIC 12/22/18 20:00 01/21/19 19:59 12/25/18 21:03 Clonidine HCl (Catapres Tab) 0.1 mg Q4H PRN GT SBP > 170mmHg 12/25/18 14:30 01/24/19 14:29 Dextrose 1,000 ml @ 30 mls/hr Q24H IV 12/26/18 12:00 01/25/19 11:59 12/26/18 12:16 Dextrose (Dextrose 50%) 25 ml Q30M PRN IV Hypoglycemia 12/20/18 19:00 01/19/19 18:59 12/26/18 09:31 Dextrose (Dextrose 50%) 50 ml Q30M PRN IV Hypoglycemia 12/20/18 19:00 01/19/19 18:59 Insulin Aspart (NovoLOG) Q6HR SUBQ 12/20/18 12:00 01/19/19 11:59 12/25/18 17:33 Insulin Detemir (Levemir) 6 units BID SUBQ 12/26/18 09:00 01/20/19 08:59 Lansoprazole (Prevacid) 30 mg BID GT 12/20/18 18:00 01/20/19 08:59 12/26/18 09:20 Lorazepam (Ativan 2mg/ml 1ml) 1 mg Q3H PRN IV For Anxiety 12/22/18 09:00 12/29/18 08:59 12/22/18 16:07 Norepinephrine Bitartrate 4 mg/ Dextrose 250 ml @ 0 mls/hr Q24H IV 12/20/18 07:00 01/19/19 06:59 12/20/18 18:25 Vancomycin HCl (Vanco rx to dose) 1 ea DAILY PRN MISC Per rx protocol 12/20/18 11:00 01/19/19 10:59 Vancomycin HCl 750 mg/Sodium Chloride 275 ml @ 183.333 mls/hr Q24H IVPB 12/26/18 18:00 12/31/18 17:59 Roland Navarro MD Dec 26, 2018 12:40
--- NOTE | 2018-12-26 13:32 | Surgery Progress Note ---
Surgery Progress Note Subjective Additional Comments in ICU ill appearing leukocytosis exam stable Objective Last 24 Hour Vital Signs Date Time Temp Pulse Resp B/P (MAP) Pulse Ox O2 Delivery O2 Flow Rate FiO2 12/26/18 13:15 79 17 40 12/26/18 11:05 90 26 40 12/26/18 11:00 88 26 140/53 (82) 100 12/26/18 10:00 85 26 143/58 (86) 100 12/26/18 09:02 100 12/26/18 09:00 80 25 143/55 (84) 100 12/26/18 08:48 78 26 40 40 12/26/18 08:00 40 12/26/18 08:00 64 12/26/18 08:00 99.1 62 15 139/53 (81) 100 12/26/18 08:00 Mechanical Ventilator 12/26/18 07:09 63 16 124/64 (84) 100 12/26/18 07:00 142/66 12/26/18 06:49 60 15 40 12/26/18 06:00 63 16 127/64 (85) 100 12/26/18 05:02 74 16 40 12/26/18 05:00 65 16 165/56 (92) 100 12/26/18 04:00 Mechanical Ventilator 12/26/18 04:00 99.0 59 16 147/64 (91) 100 12/26/18 04:00 40 12/26/18 04:00 63 12/26/18 03:29 71 16 40 12/26/18 03:00 73 17 139/58 (85) 100 12/26/18 02:00 70 15 136/55 (82) 100 12/26/18 01:05 68 18 40 12/26/18 01:00 69 19 141/60 (87) 100 12/26/18 00:00 Mechanical Ventilator 12/26/18 00:00 86 12/26/18 00:00 22 19 131/50 (77) 100 12/26/18 00:00 98.8 74 19 140/58 (85) 100 12/26/18 00:00 50 12/25/18 23:08 75 19 50 12/25/18 22:00 74 19 131/50 (77) 100 12/25/18 21:00 81 21 154/57 (89) 100 12/25/18 20:54 78 18 50 12/25/18 20:00 50 12/25/18 20:00 Mechanical Ventilator 12/25/18 20:00 99.0 75 17 132/53 (79) 100 12/25/18 20:00 50 12/25/18 19:08 81 18 50 12/25/18 19:00 83 19 141/59 (86) 100 12/25/18 18:00 79 20 122/75 (91) 100 12/25/18 17:00 99.3 83 23 131/106 (114) 100 12/25/18 16:49 84 26 40 12/25/18 16:16 50 12/25/18 16:13 50 12/25/18 16:00 89 12/25/18 16:00 Mechanical Ventilator 12/25/18 16:00 83 22 128/91 (103) 100 12/25/18 15:15 80 23 40 12/25/18 15:00 84 22 147/105 (119) 100 12/25/18 14:00 87 22 159/76 (103) 100 I&O Intake and Output 12/25/18 12/26/18 19:00 07:00 Intake Total 1305.562 ml 732 ml Output Total 910 ml 720 ml Balance 395.562 ml 12 ml Intake Free Water 100 ml 30 ml IV Total 725.562 ml 382 ml Tube Feeding 480 ml 320 ml Output Urine Total 660 ml 470 ml Stool Total 250 ml 250 ml Dressing: saturated Wound: clean Cardiovascular: RSR Respiratory: decreased breath sounds Abdomen: soft, present bowel sounds, non-distended Extremities: no cyanosis, other Laboratory Tests Test 12/26/18 09:23 12/26/18 09:35 Vancomycin Level Trough 22.1 ug/mL (5.0-12.0) H Arterial Blood pH 7.447 (7.350-7.450) Arterial Blood Partial Pressure CO2 30.4 mmHg (35.0-45.0) L Arterial Blood Partial Pressure O2 74.0 mmHg (75.0-100.0) L Arterial Blood HCO3 20.5 mmol/L (22.0-26.0) L Arterial Blood Oxygen Saturation 95.5 % (95-100) Arterial Blood Base Excess -3.0 (-2-2) L Brock Test Positive Plan Problems: (1) Sepsis Assessment & Plan: cont current ICU care and management Cont IV abx trend labs (2) Severe dehydration (3) Anemia, chronic disease (4) HCAP (healthcare-associated pneumonia) (5) Sacral decubitus ulcer, stage IV Assessment & Plan: Pt presented on admission with full thickness Sacral Pressure Injury with undermining. Bone is palpable. Base of has beefy red granulation with scattered small purple areas. No odor noted .Scant serous exudate noted . Edges pink and flat. (L)13cm x (W)14cm x (D)5.6cm,[id number]- 4 by 4cm @11o'clock. DTPI noted to lateral R foot. .Base of wound purple and fluctuant in center with surrounding maroon discoloration (L)1.5cm x (W)1cm. Non-blanchable erythema with fluctuance noted to posterior and medial R heel. L heel boggy but blanchable. Tx.Plan: Cleanse Sacral wound with Saline. Loosely pack with Hydrogel Impregnated Kerlix. Cover with ABD pads and secure with Paper Tape or Tegaderm Daily and prn. Apply Cavilon Skin Barrier to R and Heel and lateral R heel. Ciover with Optifoam drsg. Change every 7 days and PRN. Apply Cavilon Skin Barrier to L heel. Cover with Optifoam drsg. Change every 7 days and prn. APM/VIJI Mattress Overlay. Reposition at least every 2hours or as tolerated. Off-load heels with Pillow. will consider wound VAC placement given clean wound (6) Hyperglycemia due to type 2 diabetes mellitus (7) Acute metabolic encephalopathy (8) Hypotension (9) ARF (acute renal failure) (10) Respiratory failure with hypoxia Mauro Morrow Dec 26, 2018 13:32
--- NOTE | 2018-12-26 14:00 | Hematology/Onc Progress Note ---
Assessment/Plan Assessment/Plan Assessment and Recs: # Anemia of chronic disease due to underlying chronic medical issues, multifactorial , ferritin 366, tibc 144 --> Anemia workup has been reviewed, rule out gi bleed --> No evidence of hemolysis is noted, peripheral smear has been reviewed. --> Hgb goal >7. Transfuse prn. --> Epogen or iron at this time is not particularly indicated --> Medications have been reviewed --> low threshold for gi evaluation in case has occult + --> Hgb trend: 9.3-->9.5 # Recanalized dvt of the right lower extremity --> given it has healed/recanalized, is not acute okay for just heparin prophylactic dosing --> continue heparin sq bid dosing # Leukocytosis/elevated white blood cell count, is due to underlying sepsis urine infection+ --> Currently improving/trending downwards --> ID is following, appreciate recs --> have reviewed peripheral smear and bandemia/neutrophilia noted --> continue antibiotics per ID --> monitor for resolution --> trend 15-->24-->21k-->17.4-->11.2 # Respiratory failure with hypoxia --> s/p vent placement intubated 12/20/18, --> pulm eval # Sacral decubitus ulcer, stage IV --> per surg # HCAP (healthcare-associated pneumonia) # ARF (acute renal failure) --> per renal # Hyperglycemia due to type 2 diabetes mellitus # Acute metabolic encephalopathy # Severe dehydration The timing of this note does not necessarily reflect the time of the patient was seen. GREATLY APPRECIATE CONSULTATION. Subjective ROS Limited/Unobtainable: Yes Hematologic/Lymphatic: Reports: anemia Allergies: Coded Allergies: ALLOPURINOL (Verified Allergy, Unknown, 12/20/18) Subjective 12/21: no events, on abx, with pressor 12/22: Pt to start weaning off of vent. Remains on abx. CBC reviewed. 12/24: Prssor prn for HR <50. H/H stable. WBC improved. 12/26 : Pt remains in ICU. Pt awake and responsive. Extubation cancelled per Dr Dunbar. Objective Objective Current Medications Medications (Trade) Dose Ordered Sig/Nora Route PRN Reason Start Time Stop Time Status Last Admin Dose Admin Acetaminophen (Tylenol) 650 mg Q4H PRN GT Mild Pain/Temp > 100.5 12/26/18 11:00 01/25/19 10:59 Ceftriaxone Sodium 1 gm/ Dextrose 55 ml @ 110 mls/hr Q24H IVPB 12/25/18 12:00 01/01/19 11:59 12/26/18 12:16 Chlorhexidine Gluconate (Valentina-Hex 2%) 1 applic DAILY@2000 TOPIC 12/22/18 20:00 01/21/19 19:59 12/25/18 21:03 Clonidine HCl (Catapres Tab) 0.1 mg Q4H PRN GT SBP > 170mmHg 12/25/18 14:30 01/24/19 14:29 Dextrose 1,000 ml @ 30 mls/hr Q24H IV 12/26/18 12:00 01/25/19 11:59 12/26/18 12:16 Dextrose (Dextrose 50%) 25 ml Q30M PRN IV Hypoglycemia 12/20/18 19:00 01/19/19 18:59 12/26/18 09:31 Dextrose (Dextrose 50%) 50 ml Q30M PRN IV Hypoglycemia 12/20/18 19:00 01/19/19 18:59 Insulin Aspart (NovoLOG) Q6HR SUBQ 12/20/18 12:00 01/19/19 11:59 12/25/18 17:33 Insulin Detemir (Levemir) 6 units BID SUBQ 12/26/18 09:00 01/20/19 08:59 Lansoprazole (Prevacid) 30 mg BID GT 12/20/18 18:00 01/20/19 08:59 12/26/18 09:20 Lorazepam (Ativan 2mg/ml 1ml) 1 mg Q3H PRN IV For Anxiety 12/22/18 09:00 12/29/18 08:59 12/22/18 16:07 Norepinephrine Bitartrate 4 mg/ Dextrose 250 ml @ 0 mls/hr Q24H IV 12/20/18 07:00 01/19/19 06:59 12/20/18 18:25 Vancomycin HCl (Vanco rx to dose) 1 ea DAILY PRN MISC Per rx protocol 12/20/18 11:00 01/19/19 10:59 Vancomycin HCl 750 mg/Sodium Chloride 275 ml @ 183.333 mls/hr Q24H IVPB 12/26/18 18:00 12/31/18 17:59 Last 24 Hour Vital Signs Date Time Temp Pulse Resp B/P (MAP) Pulse Ox O2 Delivery O2 Flow Rate FiO2 12/26/18 13:15 79 17 40 12/26/18 11:05 90 26 40 12/26/18 11:00 88 26 140/53 (82) 100 12/26/18 10:00 85 26 143/58 (86) 100 12/26/18 09:02 100 12/26/18 09:00 80 25 143/55 (84) 100 12/26/18 08:48 78 26 40 40 12/26/18 08:00 40 12/26/18 08:00 64 12/26/18 08:00 99.1 62 15 139/53 (81) 100 12/26/18 08:00 Mechanical Ventilator 12/26/18 07:09 63 16 124/64 (84) 100 12/26/18 07:00 142/66 12/26/18 06:49 60 15 40 12/26/18 06:00 63 16 127/64 (85) 100 12/26/18 05:02 74 16 40 12/26/18 05:00 65 16 165/56 (92) 100 12/26/18 04:00 Mechanical Ventilator 12/26/18 04:00 99.0 59 16 147/64 (91) 100 12/26/18 04:00 40 12/26/18 04:00 63 12/26/18 03:29 71 16 40 12/26/18 03:00 73 17 139/58 (85) 100 12/26/18 02:00 70 15 136/55 (82) 100 12/26/18 01:05 68 18 40 12/26/18 01:00 69 19 141/60 (87) 100 12/26/18 00:00 Mechanical Ventilator 12/26/18 00:00 86 12/26/18 00:00 22 19 131/50 (77) 100 12/26/18 00:00 98.8 74 19 140/58 (85) 100 12/26/18 00:00 50 12/25/18 23:08 75 19 50 12/25/18 22:00 74 19 131/50 (77) 100 6/24/19 21:00 81 21 154/57 (89) 100 12/25/18 20:54 78 18 50 12/25/18 20:00 50 12/25/18 20:00 Mechanical Ventilator 12/25/18 20:00 99.0 75 17 132/53 (79) 100 12/25/18 20:00 50 12/25/18 19:08 81 18 50 12/25/18 19:00 83 19 141/59 (86) 100 12/25/18 18:00 79 20 122/75 (91) 100 12/25/18 17:00 99.3 83 23 131/106 (114) 100 12/25/18 16:49 84 26 40 12/25/18 16:16 50 12/25/18 16:13 50 12/25/18 16:00 89 12/25/18 16:00 Mechanical Ventilator 12/25/18 16:00 83 22 128/91 (103) 100 12/25/18 15:15 80 23 40 12/25/18 15:00 84 22 147/105 (119) 100 12/25/18 14:00 87 22 159/76 (103) 100 12/25/18 13:08 84 20 40 12/25/18 13:00 99.5 81 20 141/65 (90) 100 12/25/18 12:00 81 21 125/73 (90) 100 12/25/18 12:00 40 12/25/18 12:00 78 12/25/18 12:00 Mechanical Ventilator 12/25/18 11:11 80 17 40 12/25/18 11:00 83 17 131/62 (85) 100 12/25/18 10:35 85 19 100 Mechanical Ventilator 12/25/18 10:00 93 28 141/67 (91) 100 12/25/18 09:00 99.2 85 21 112/55 (74) 100 12/25/18 08:52 85 19 40 12/25/18 08:00 40 12/25/18 08:00 99.2 85 18 110/86 (94) 100 12/25/18 08:00 Mechanical Ventilator 12/25/18 08:00 83 12/25/18 07:26 81 19 40 12/25/18 07:00 86 20 104/61 (75) 100 12/25/18 06:00 99.6 83 20 106/54 (71) 100 12/25/18 05:00 90 23 119/64 (82) 100 12/25/18 05:00 88 19 40 12/25/18 04:00 99.1 88 20 119/62 (81) 100 12/25/18 04:00 74 12/25/18 04:00 40 12/25/18 04:00 Mechanical Ventilator 12/25/18 03:29 89 20 99 Mechanical Ventilator 40 12/25/18 03:15 89 20 40 12/25/18 03:00 79 18 121/65 (83) 100 12/25/18 02:00 82 21 136/62 (86) 100 12/25/18 01:28 81 18 40 12/25/18 01:00 80 20 128/62 (84) 100 12/25/18 00:00 40 12/25/18 00:00 Mechanical Ventilator 12/25/18 00:00 83 12/25/18 00:00 99.3 81 15 125/60 (81) 100 12/24/18 23:22 82 19 40 12/24/18 23:00 77 20 127/65 (85) 100 12/24/18 22:00 68 21 130/71 (90) 100 12/24/18 21:19 73 23 40 12/24/18 21:00 70 20 129/60 (83) 100 12/24/18 20:00 Mechanical Ventilator 12/24/18 20:00 99.5 65 19 142/58 (86) 100 12/24/18 20:00 40 12/24/18 20:00 65 12/24/18 19:02 68 21 40 12/24/18 19:00 68 19 147/125 (132) 100 12/24/18 18:00 69 19 131/59 (83) 97 12/24/18 17:16 71 22 40 12/24/18 17:00 66 20 137/56 (83) 100 12/24/18 16:00 40 12/24/18 16:00 98.0 69 20 124/69 (87) 100 12/24/18 16:00 61 12/24/18 16:00 Mechanical Ventilator 12/24/18 15:00 65 20 124/59 (80) 100 12/24/18 14:39 57 15 40 12/24/18 14:00 60 17 144/57 (86) 100 Intake and Output 12/25/18 12/26/18 19:00 07:00 Intake Total 1305.562 ml 732 ml Output Total 910 ml 720 ml Balance 395.562 ml 12 ml Intake Free Water 100 ml 30 ml IV Total 725.562 ml 382 ml Tube Feeding 480 ml 320 ml Output Urine Total 660 ml 470 ml Stool Total 250 ml 250 ml Labs Test 12/24/18 05:30 12/24/18 10:50 12/25/18 04:00 12/26/18 09:23 White Blood Count 11.2 K/UL (4.8-10.8) 12.5 K/UL (4.8-10.8) Red Blood Count 3.47 M/UL (4.20-5.40) 3.63 M/UL (4.20-5.40) Hemoglobin 9.5 G/DL (12.0-16.0) 9.8 G/DL (12.0-16.0) Hematocrit 29.3 % (37.0-47.0) 30.6 % (37.0-47.0) Mean Corpuscular Volume 84 FL (80-99) 84 FL (80-99) Mean Corpuscular Hemoglobin 27.3 PG (27.0-31.0) 27.0 PG (27.0-31.0) Mean Corpuscular Hemoglobin Concent 32.3 G/DL (32.0-36.0) 32.1 G/DL (32.0-36.0) Red Cell Distribution Width 15.1 % (11.6-14.8) 15.2 % (11.6-14.8) Platelet Count 208 K/UL (150-450) 258 K/UL (150-450) Mean Platelet Volume 8.2 FL (6.5-10.1) 7.8 FL (6.5-10.1) Neutrophils (%) (Auto) 75.9 % (45.0-75.0) 66.2 % (45.0-75.0) Lymphocytes (%) (Auto) 20.5 % (20.0-45.0) 29.5 % (20.0-45.0) Monocytes (%) (Auto) 2.3 % (1.0-10.0) 2.9 % (1.0-10.0) Eosinophils (%) (Auto) 1.1 % (0.0-3.0) 0.9 % (0.0-3.0) Basophils (%) (Auto) 0.3 % (0.0-2.0) 0.4 % (0.0-2.0) Sodium Level 146 MMOL/L (136-145) 145 MMOL/L (136-145) Potassium Level 3.7 MMOL/L (3.5-5.1) 3.8 MMOL/L (3.5-5.1) Chloride Level 113 MMOL/L (98-107) 111 MMOL/L (98-107) Carbon Dioxide Level 23 MMOL/L (21-32) 24 MMOL/L (21-32) Anion Gap 10 mmol/L (5-15) 10 mmol/L (5-15) Blood Urea Nitrogen 31 mg/dL (7-18) 28 mg/dL (7-18) Creatinine 1.2 MG/DL (0.55-1.30) 1.1 MG/DL (0.55-1.30) Estimat Glomerular Filtration Rate mL/min (>60) mL/min (>60) Glucose Level 114 MG/DL (74-106) 81 MG/DL (74-106) Calcium Level 8.3 MG/DL (8.5-10.1) 8.4 MG/DL (8.5-10.1) Phosphorus Level 2.7 MG/DL (2.5-4.9) Magnesium Level 1.8 MG/DL (1.8-2.4) Total Bilirubin 0.2 MG/DL (0.2-1.0) Aspartate Amino Transf (AST/SGOT) 14 U/L (15-37) Alanine Aminotransferase (ALT/SGPT) 18 U/L (12-78) Alkaline Phosphatase 69 U/L (46-116) C-Reactive Protein, Quantitative 19.2 mg/dL (0.00-0.90) Pro-B-Type Natriuretic Peptide 7587 pg/mL (0-125) Total Protein 7.0 G/DL (6.4-8.2) Albumin 1.4 G/DL (3.4-5.0) Globulin 5.6 g/dL Albumin/Globulin Ratio 0.2 (1.0-2.7) Arterial Blood pH 7.435 (7.350-7.450) Arterial Blood Partial Pressure CO2 32.1 mmHg (35.0-45.0) Arterial Blood Partial Pressure O2 149.2 mmHg (75.0-100.0) Arterial Blood HCO3 21.1 mmol/L (22.0-26.0) Arterial Blood Oxygen Saturation 98.5 % (95-100) Arterial Blood Base Excess -2.5 (-2-2) Brock Test Positive Vancomycin Level Trough 22.1 ug/mL (5.0-12.0) Test 12/26/18 09:35 Arterial Blood pH 7.447 (7.350-7.450) Arterial Blood Partial Pressure CO2 30.4 mmHg (35.0-45.0) Arterial Blood Partial Pressure O2 74.0 mmHg (75.0-100.0) Arterial Blood HCO3 20.5 mmol/L (22.0-26.0) Arterial Blood Oxygen Saturation 95.5 % (95-100) Arterial Blood Base Excess -3.0 (-2-2) Brock Test Positive Height (Feet): 5 Height (Inches): 6.00 Weight (Pounds): 210 Objective Sp02 EP Interpretation: reviewed General Appearance: severe distress, lethargic, Chronically Ill Head: normocephalic, atraumatic Eyes: bilateral eye PERRL, bilateral eye EOMI ENT: dry mucus membranes Neck: full range of motion, supple, no meningismus Respiratory: chest non-tender, respiratory distress, rhonchi. VENT++ Cardiovascular: regular rate, rhythm, no murmur, tachycardia Gastrointestinal: normal bowel sounds, non tender- Reducible abdominal wall hernia. COLOSTOMY+, GT++ Rectal: other - large sacral Stage 4 ulcer Musculoskeletal: back normal, normal range of motion Psychiatric: mood/affect normal Skin: warm/dry Tobin Stover MD Dec 26, 2018 14:00
[2018-12-26] MEDS: Vancomycin 750mg/NS 275ml IVPB SCH ×2 (17:47)
[2018-12-26] MEDS: Ipratropium 0.02% Inh Soln 2.5ml UD HHN SCH (19:16)
[2018-12-26] MEDS: Dyna-Hex 2% Top Sol 2oz TOPIC SCH (20:19)
--- NOTE | 2018-12-26 21:16 | General Progress Note ---
Assessment/Plan Problem List: (1) Anemia, chronic disease ICD Codes: D63.8 - Anemia in other chronic diseases classified elsewhere SNOMED: 173260563, 775081154 (2) Severe dehydration ICD Codes: E86.0 - Dehydration SNOMED: 191155877, 313004746 (3) Hyperglycemia due to type 2 diabetes mellitus ICD Codes: E11.65 - Type 2 diabetes mellitus with hyperglycemia SNOMED: 930145472399554, 22338690 Qualifiers: Qualified Codes: E11.65 - Type 2 diabetes mellitus with hyperglycemia; Z79.4 - prison (current) use of insulin (4) Acute metabolic encephalopathy ICD Codes: G93.41 - Metabolic encephalopathy SNOMED: 51152732, 533798385 (5) Hypotension ICD Codes: I95.9 - Hypotension, unspecified SNOMED: 40652355 (6) ARF (acute renal failure) ICD Codes: N17.9 - Acute kidney failure, unspecified SNOMED: 32442228, 898938321 Qualifiers: Qualified Codes: N17.9 - Acute kidney failure, unspecified (7) Respiratory failure with hypoxia ICD Codes: J96.91 - Respiratory failure, unspecified with hypoxia SNOMED: 80529593445073896, 585613752 Qualifiers: Qualified Codes: J96.01 - Acute respiratory failure with hypoxia (8) Renal failure (ARF), acute on chronic ICD Codes: N17.9 - Acute kidney failure, unspecified; N18.9 - Chronic kidney disease, unspecified SNOMED: 312940576 (9) Anemia ICD Codes: D64.9 - Anemia, unspecified SNOMED: 775134587 Status: stable, progressing Assessment/Plan: resp failure pna. rt to do cpt lethargic on sedatives anemia improved sacral decub azotemia reviewed chart and labs Subjective ROS Limited/Unobtainable: Yes Allergies: Coded Allergies: ALLOPURINOL (Verified Allergy, Unknown, 12/20/18) Objective Last 24 Hour Vital Signs Date Time Temp Pulse Resp B/P (MAP) Pulse Ox O2 Delivery O2 Flow Rate FiO2 12/26/18 19:17 77 16 100 Mechanical Ventilator 40 12/26/18 19:06 77 22 40 12/26/18 19:00 75 20 121/47 (71) 100 12/26/18 18:00 66 15 121/47 (71) 100 12/26/18 17:25 65 15 40 12/26/18 17:00 66 15 139/60 (86) 100 12/26/18 16:00 73 12/26/18 16:00 99.0 71 18 127/52 (77) 100 12/26/18 16:00 40 12/26/18 15:58 Mechanical Ventilator 12/26/18 15:49 83 22 40 12/26/18 15:00 70 18 128/50 (76) 100 12/26/18 14:00 66 15 134/50 (78) 100 12/26/18 13:15 79 17 40 12/26/18 13:00 65 15 140/60 (86) 100 12/26/18 12:00 40 12/26/18 12:00 72 12/26/18 12:00 99.0 61 15 127/54 (78) 100 12/26/18 12:00 Mechanical Ventilator 12/26/18 11:05 90 26 40 12/26/18 11:00 88 26 140/53 (82) 100 12/26/18 10:00 85 26 143/58 (86) 100 12/26/18 09:02 100 12/26/18 09:00 80 25 143/55 (84) 100 12/26/18 08:48 78 26 40 40 12/26/18 08:00 40 12/26/18 08:00 64 12/26/18 08:00 99.1 62 15 139/53 (81) 100 12/26/18 08:00 Mechanical Ventilator 12/26/18 07:09 63 16 124/64 (84) 100 12/26/18 07:00 142/66 12/26/18 06:49 60 15 40 12/26/18 06:00 63 16 127/64 (85) 100 12/26/18 05:02 74 16 40 12/26/18 05:00 65 16 165/56 (92) 100 12/26/18 04:00 Mechanical Ventilator 12/26/18 04:00 99.0 59 16 147/64 (91) 100 12/26/18 04:00 40 12/26/18 04:00 63 12/26/18 03:29 71 16 40 12/26/18 03:00 73 17 139/58 (85) 100 12/26/18 02:00 70 15 136/55 (82) 100 12/26/18 01:05 68 18 40 12/26/18 01:00 69 19 141/60 (87) 100 12/26/18 00:00 Mechanical Ventilator 12/26/18 00:00 86 12/26/18 00:00 22 19 131/50 (77) 100 12/26/18 00:00 98.8 74 19 140/58 (85) 100 12/26/18 00:00 50 12/25/18 23:08 75 19 50 12/25/18 22:00 74 19 131/50 (77) 100 Intake and Output 12/25/18 12/26/18 19:00 07:00 Intake Total 1305.562 ml 732 ml Output Total 910 ml 720 ml Balance 395.562 ml 12 ml Intake Free Water 100 ml 30 ml IV Total 725.562 ml 382 ml Tube Feeding 480 ml 320 ml Output Urine Total 660 ml 470 ml Stool Total 250 ml 250 ml Laboratory Tests 12/26/18 09:23: Vancomycin Level Trough 22.1H 12/26/18 09:35: Arterial Blood pH 7.447, Arterial Blood Partial Pressure CO2 30.4L, Arterial Blood Partial Pressure O2 74.0L, Arterial Blood HCO3 20.5L, Arterial Blood Oxygen Saturation 95.5, Arterial Blood Base Excess -3.0L, Brock Test Positive Height (Feet): 5 Height (Inches): 6.00 Weight (Pounds): 210 Cardiovascular: normal rate Respiratory/Chest: lungs clear Abdomen: soft Danial Walden MD Dec 26, 2018 21:16
--- NOTE | 2018-12-26 21:35 | Pulmonolgy Critical Care Note ---
Critical Care - Asmt/Plan Assessment/Plan: Pulmonary CCM Progress Note Assessment/Plan Respiratory failure, acute, tolerated weaning today, ABG acceptable sepsis hypotension sacral ulcer hypernatremia acute renal failure severe protein calorie malnutrition hypoxemia, severe hypercapnia possible pneumonia possible demand ischemia PLAN care noted an reviewed on vent Wean PEEP, Hold feeds, wean vent in AM - hope to extubate tomorrow monitor AC rate monitor acid base antibiotics and cultures noted and reviewed hydration with caution supportive care ICU care nutrition medications/laboratory data/nursing notes/ICU care reviewed in detail note reviewed and edited care discussed with RN and RT ICU time spent 40 minutes Critical Care - Subjective Interval Events: care noted on oxygen ROS Limited/Unobtainable: Yes Condition: critical EKG Rhythm: Sinus Rhythm Critical Care - Objective ET-Tube: 7.5 ET Position: 23 Vital Signs Noted Objective: Sp02 EP Interpretation: reviewed, normal General Appearance: normal inspection, well appearing, no apparent distress, sedated Head: normocephalic, atraumatic Eyes: bilateral eye normal inspection ENT: oral ETT Neck: normal inspection, full range of motion, supple, no meningismus, carotid 2+ Respiratory: decreased breath sounds, moderate breath sounds with some rhonchi left Cardiovascular #1: regular rhythm, no murmur without MRG; Gastrointestinal: non tender, soft, non-distended, no guarding, no rebound Musculoskeletal: no CCE Neurologic: sedated reviewed and edited Micro: Microbiology Date/Time Source Procedure Growth Status 12/21/18 13:30 Blood Blood Culture - Preliminary NO GROWTH Resulted Critical Care - Objective Last 24 Hour Vital Signs Date Time Temp Pulse Resp B/P (MAP) Pulse Ox O2 Delivery O2 Flow Rate FiO2 12/26/18 21:01 74 20 40 12/26/18 19:17 77 16 100 Mechanical Ventilator 40 12/26/18 19:06 77 22 40 12/26/18 19:00 75 20 121/47 (71) 100 12/26/18 18:00 66 15 121/47 (71) 100 12/26/18 17:25 65 15 40 12/26/18 17:00 66 15 139/60 (86) 100 12/26/18 16:00 73 12/26/18 16:00 99.0 71 18 127/52 (77) 100 12/26/18 16:00 40 12/26/18 15:58 Mechanical Ventilator 12/26/18 15:49 83 22 40 12/26/18 15:00 70 18 128/50 (76) 100 12/26/18 14:00 66 15 134/50 (78) 100 12/26/18 13:15 79 17 40 12/26/18 13:00 65 15 140/60 (86) 100 12/26/18 12:00 40 12/26/18 12:00 72 12/26/18 12:00 99.0 61 15 127/54 (78) 100 12/26/18 12:00 Mechanical Ventilator 12/26/18 11:05 90 26 40 12/26/18 11:00 88 26 140/53 (82) 100 12/26/18 10:00 85 26 143/58 (86) 100 12/26/18 09:02 100 12/26/18 09:00 80 25 143/55 (84) 100 12/26/18 08:48 78 26 40 40 12/26/18 08:00 40 12/26/18 08:00 64 12/26/18 08:00 99.1 62 15 139/53 (81) 100 12/26/18 08:00 Mechanical Ventilator 12/26/18 07:09 63 16 124/64 (84) 100 12/26/18 07:00 142/66 12/26/18 06:49 60 15 40 12/26/18 06:00 63 16 127/64 (85) 100 12/26/18 05:02 74 16 40 12/26/18 05:00 65 16 165/56 (92) 100 12/26/18 04:00 Mechanical Ventilator 12/26/18 04:00 99.0 59 16 147/64 (91) 100 12/26/18 04:00 40 12/26/18 04:00 63 12/26/18 03:29 71 16 40 12/26/18 03:00 73 17 139/58 (85) 100 12/26/18 02:00 70 15 136/55 (82) 100 12/26/18 01:05 68 18 40 12/26/18 01:00 69 19 141/60 (87) 100 12/26/18 00:00 Mechanical Ventilator 12/26/18 00:00 86 12/26/18 00:00 22 19 131/50 (77) 100 6/25/19 00:00 98.8 74 19 140/58 (85) 100 12/26/18 00:00 50 12/25/18 23:08 75 19 50 12/25/18 22:00 74 19 131/50 (77) 100 Accucheck: 133 Critical Care - Subjective ROS Limited/Unobtainable: No FI02: 40 Vent Support Breath Rate: 15 Vent Support Mode: AC Vent Tidal Volume: 500 Sputum Amount: Moderate PEEP: 5.0 PIP: 32 Tube Feeding Amount: 40 I&O: Intake and Output 12/25/18 12/26/18 19:00 07:00 Intake Total 1305.562 ml 732 ml Output Total 910 ml 720 ml Balance 395.562 ml 12 ml Intake Free Water 100 ml 30 ml IV Total 725.562 ml 382 ml Tube Feeding 480 ml 320 ml Output Urine Total 660 ml 470 ml Stool Total 250 ml 250 ml ET-Tube: 7.5 ET Position: 23 Minh Dunbar MD Dec 26, 2018 21:35
[2018-12-27] VITALS (24 sets, daily range): BP systolic 125–159; BP diastolic 48–72
[2018-12-27] MEDS: NovoLOG Insulin Flexpen SUBQ SCH ×5 (00:09→23:32)
[2018-12-27] MEDS: Ipratropium 0.02% Inh Soln 2.5ml UD HHN SCH ×7 (01:18→23:45)
[2018-12-27 05:30] LABS: BASOPHILS % (AUTO) 0.4 % (0.0-2.0); EOSINOPHILS % (AUTO) 1.6 % (0.0-3.0); HEMATOCRIT 26.3 % (37.0-47.0); HEMOGLOBIN 8.4 G/DL (12.0-16.0); LYMPHOCYTES % (AUTO) 30.6 % (20.0-45.0); MEAN CORPUSCULAR VOLUME 84 FL (80-99); MONOCYTES % (AUTO) 4.2 % (1.0-10.0); NEUTROPHILS % (AUTO) 63.1 % (45.0-75.0); PLATELET COUNT 253 K/UL (150-450); RED BLOOD COUNT 3.14 M/UL (4.20-5.40); RED CELL DISTRIBUTION WIDTH 15.1 % (11.6-14.8); WHITE BLOOD COUNT 8.3 K/UL (4.8-10.8)
[2018-12-27 06:27] LABS: ALANINE AMINOTRANSFERASE 13 U/L (12-78); ALBUMIN 1.3 G/DL (3.4-5.0); ALBUMIN/GLOBULIN RATIO 0.2 (1.0-2.7); ALKALINE PHOSPHATASE 62 U/L (46-116); ANION GAP 7 mmol/L (5-15); ASPARTATE AMINO TRANSFERASE 16 U/L (15-37); BILIRUBIN,TOTAL 0.3 MG/DL (0.2-1.0); BLOOD UREA NITROGEN 20 mg/dL (7-18); CARBON DIOXIDE 25 MMOL/L (21-32); CHLORIDE 108 MMOL/L (98-107); PHOSPHORUS 2.7 MG/DL (2.5-4.9); POTASSIUM 3.7 MMOL/L (3.5-5.1); SODIUM 140 MMOL/L (136-145)
--- NOTE | 2018-12-27 06:47 | General Progress Note ---
Assessment/Plan Problem List: (1) Sepsis ICD Codes: A41.9 - Sepsis, unspecified organism SNOMED: 67602216, 411490436 Qualifiers: Qualified Codes: A41.9 - Sepsis, unspecified organism (2) HCAP (healthcare-associated pneumonia) ICD Codes: J18.9 - Pneumonia, unspecified organism SNOMED: 917584579, 548125142 (3) Sacral decubitus ulcer, stage IV ICD Codes: L89.154 - Pressure ulcer of sacral region, stage 4 SNOMED: 276366960, 255505850 (4) Hyperglycemia due to type 2 diabetes mellitus ICD Codes: E11.65 - Type 2 diabetes mellitus with hyperglycemia SNOMED: 070982507427152, 45587109 Qualifiers: Qualified Codes: E11.65 - Type 2 diabetes mellitus with hyperglycemia; Z79.4 - nursing home (current) use of insulin (5) Acute metabolic encephalopathy ICD Codes: G93.41 - Metabolic encephalopathy SNOMED: 36890467, 475858298 (6) ARF (acute renal failure) ICD Codes: N17.9 - Acute kidney failure, unspecified SNOMED: 69320529, 114015331 Qualifiers: Qualified Codes: N17.9 - Acute kidney failure, unspecified (7) Respiratory failure with hypoxia ICD Codes: J96.91 - Respiratory failure, unspecified with hypoxia SNOMED: 75611827509711957, 504571770 Qualifiers: Qualified Codes: J96.01 - Acute respiratory failure with hypoxia Status: stable, progressing Assessment/Plan: continue Levemir 6 units bid - hold for NPO status continue NISS every 6 hours Subjective ROS Limited/Unobtainable: Yes Allergies: Coded Allergies: ALLOPURINOL (Verified Allergy, Unknown, 12/20/18) Subjective events noted NPO for weaning today Item Value Date Time Bedside Blood Glucose 125 mg/dl H 12/27/18 0600 Bedside Blood Glucose 125 mg/dl H 12/27/18 0009 Bedside Blood Glucose 133 mg/dl H 12/26/18 1800 Bedside Blood Glucose 89 mg/dl 12/26/18 1200 Bedside Blood Glucose 101 mg/dl 12/26/18 0950 Bedside Blood Glucose 82 mg/dl 12/26/18 0600 Bedside Blood Glucose 90 mg/dl 12/26/18 0000 Objective Last 24 Hour Vital Signs Date Time Temp Pulse Resp B/P (MAP) Pulse Ox O2 Delivery O2 Flow Rate FiO2 12/27/18 06:00 72 20 142/72 (95) 100 12/27/18 05:39 57 15 40 12/27/18 05:00 70 20 131/56 (81) 100 12/27/18 04:00 98.6 64 17 141/64 (89) 100 12/27/18 04:00 Mechanical Ventilator 12/27/18 04:00 40 12/27/18 04:00 70 12/27/18 03:10 74 15 100 Mechanical Ventilator 40 12/27/18 03:10 74 15 40 12/27/18 03:00 66 18 125/48 (73) 100 12/27/18 02:00 71 20 131/56 (81) 100 12/27/18 01:27 40 12/27/18 01:27 74 16 100 Mechanical Ventilator 40 12/27/18 01:20 75 16 40 12/27/18 01:18 72 16 100 Mechanical Ventilator 40 12/27/18 01:00 71 20 135/56 (82) 100 12/27/18 01:00 71 20 135/56 (82) 100 12/27/18 00:00 40 12/27/18 00:00 99.0 70 20 140/50 (80) 100 12/27/18 00:00 70 12/27/18 00:00 Mechanical Ventilator 12/26/18 23:02 71 17 40 12/26/18 23:00 70 20 140/53 (82) 100 12/26/18 22:00 75 20 127/48 (74) 100 12/26/18 21:01 74 20 40 12/26/18 21:00 75 20 121/47 (71) 100 12/26/18 20:00 99.4 67 17 120/47 (71) 100 12/26/18 20:00 Mechanical Ventilator 12/26/18 20:00 40 12/26/18 20:00 67 12/26/18 19:27 77 19 100 Mechanical Ventilator 40 12/26/18 19:26 40 12/26/18 19:17 77 16 100 Mechanical Ventilator 40 12/26/18 19:06 77 22 40 12/26/18 19:00 75 20 121/47 (71) 100 12/26/18 18:00 66 15 121/47 (71) 100 6/25/19 17:25 65 15 40 12/26/18 17:00 66 15 139/60 (86) 100 12/26/18 16:00 73 12/26/18 16:00 99.0 71 18 127/52 (77) 100 12/26/18 16:00 40 12/26/18 15:58 Mechanical Ventilator 12/26/18 15:49 83 22 40 12/26/18 15:00 70 18 128/50 (76) 100 12/26/18 14:00 66 15 134/50 (78) 100 12/26/18 13:15 79 17 40 12/26/18 13:00 65 15 140/60 (86) 100 12/26/18 12:00 40 12/26/18 12:00 72 12/26/18 12:00 99.0 61 15 127/54 (78) 100 12/26/18 12:00 Mechanical Ventilator 12/26/18 11:05 90 26 40 12/26/18 11:00 88 26 140/53 (82) 100 12/26/18 10:00 85 26 143/58 (86) 100 12/26/18 09:02 100 12/26/18 09:00 80 25 143/55 (84) 100 12/26/18 08:48 78 26 40 40 12/26/18 08:00 40 12/26/18 08:00 64 12/26/18 08:00 99.1 62 15 139/53 (81) 100 12/26/18 08:00 Mechanical Ventilator 12/26/18 07:09 63 16 124/64 (84) 100 12/26/18 07:00 142/66 12/26/18 06:49 60 15 40 Intake and Output 12/26/18 12/27/18 18:59 06:59 Intake Total 866.665 ml 1155 ml Output Total 1060 ml 650 ml Balance -193.335 ml 505 ml Intake Free Water 50 ml 100 ml IV Total 536.665 ml 735 ml Tube Feeding 280 ml 320 ml Output Urine Total 960 ml 650 ml Stool Total 100 ml Laboratory Tests 12/26/18 09:23: Vancomycin Level Trough 22.1H 12/26/18 09:35: Arterial Blood pH 7.447, Arterial Blood Partial Pressure CO2 30.4L, Arterial Blood Partial Pressure O2 74.0L, Arterial Blood HCO3 20.5L, Arterial Blood Oxygen Saturation 95.5, Arterial Blood Base Excess -3.0L, Brock Test Positive 12/27/18 04:30: White Blood Count 8.3, Red Blood Count 3.14L, Hemoglobin 8.4L, Hematocrit 26.3L , Mean Corpuscular Volume 84, Mean Corpuscular Hemoglobin 26.8L, Mean Corpuscular Hemoglobin Concent 31.9L, Red Cell Distribution Width 15.1H, Platelet Count 253, Mean Platelet Volume 7.3, Neutrophils (%) (Auto) 63.1, Lymphocytes (%) (Auto) 30.6, Monocytes (%) (Auto) 4.2, Eosinophils (%) (Auto) 1.6, Basophils (%) (Auto) 0.4, Sodium Level 140, Potassium Level 3.7, Chloride Level 108H, Carbon Dioxide Level 25, Anion Gap 7, Blood Urea Nitrogen 20H, Creatinine 1.0, Estimat Glomerular Filtration Rate , Glucose Level 126H, Uric Acid 4.5, Calcium Level 8.0L, Phosphorus Level 2.7, Magnesium Level 1.7L, Total Bilirubin 0.3, Aspartate Amino Transf (AST/SGOT) 16, Alanine Aminotransferase ( ALT/SGPT) 13, Alkaline Phosphatase 62, C-Reactive Protein, Quantitative 16.9H, Pro-B-Type Natriuretic Peptide 5755H, Total Protein 6.8, Albumin 1.3L, Globulin 5.5, Albumin/Globulin Ratio 0.2L Height (Feet): 5 Height (Inches): 6.00 Weight (Pounds): 214 General Appearance: other - intubated Neck: other - ETT Cardiovascular: regular rhythm Respiratory/Chest: decreased breath sounds Abdomen: normal bowel sounds, other - PEG Pelvis: normal external exam Objective Current Medications Medications (Trade) Dose Ordered Sig/Nora Route PRN Reason Start Time Stop Time Status Last Admin Dose Admin Acetaminophen (Tylenol) 650 mg Q4H PRN GT Mild Pain/Temp > 100.5 12/26/18 11:00 01/25/19 10:59 Ceftriaxone Sodium 1 gm/ Dextrose 55 ml @ 110 mls/hr Q24H IVPB 12/25/18 12:00 01/01/19 11:59 12/26/18 12:16 Chlorhexidine Gluconate ([place]ent[place]-Hex 2%) 1 applic DAILY@1999 TOPIC 12/22/18 20:00 01/21/19 19:59 12/26/18 20:19 Clonidine HCl (Catapres Tab) 0.1 mg Q4H PRN GT SBP > 170mmHg 12/25/18 14:30 01/24/19 14:29 Dextrose 1,000 ml @ 30 mls/hr Q24H IV 12/26/18 12:00 01/25/19 11:59 12/26/18 12:16 Dextrose (Dextrose 50%) 25 ml Q30M PRN IV Hypoglycemia 12/20/18 19:00 01/19/19 18:59 12/26/18 09:31 Dextrose (Dextrose 50%) 50 ml Q30M PRN IV Hypoglycemia 12/20/18 19:00 01/19/19 18:59 Insulin Aspart (NovoLOG) Q6HR SUBQ 12/20/18 12:00 01/19/19 11:59 12/27/18 06:00 Insulin Detemir (Levemir) 6 units BID SUBQ 12/26/18 09:00 01/20/19 08:59 12/26/18 17:53 Ipratropium [place] (Atrovent) 500 mcg Q4HRT HHN 12/26/18 19:00 12/31/18 18:59 12/27/18 03:10 Lansoprazole (Prevacid) 30 mg BID GT 12/20/18 18:00 01/20/19 08:59 12/26/18 17:47 Lorazepam (Ativan 2mg/ml 1ml) 1 mg Q3H PRN IV For Anxiety 12/22/18 09:00 12/29/18 08:59 12/22/18 16:07 Norepinephrine Bitartrate 4 mg/ Dextrose 250 ml @ 0 mls/hr Q24H IV 12/20/18 07:00 01/19/19 06:59 12/20/18 18:25 Vancomycin HCl (Vanco rx to dose) 1 ea DAILY PRN MISC Per rx protocol 12/20/18 11:00 01/19/19 10:59 Vancomycin HCl 750 mg/Sodium Chloride 275 ml @ 183.333 mls/hr Q24H IVPB 12/26/18 18:00 12/31/18 17:59 12/26/18 17:47 Pablo Day MD Dec 27, 2018 06:47
[2018-12-27] MEDS: Levemir Flexpen SUBQ SCH ×2 (08:39→17:32)
--- NOTE | 2018-12-27 10:05 | Infectious Diseases Prog Note ---
Assessment/Plan Assessment/Plan A 1. MRSA pneumonia 2. E.coli UTI 3. shock 4. renal failure improving 5. respiratory failure 6. diabetes mellitus 7. 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 continue iv vancomycin & Rocephin 2. will f/u CXR Subjective ROS Limited/Unobtainable: Yes Constitutional: Denies: fever Neurologic: Reports: other - more alwert, on restraint Allergies: Coded Allergies: ALLOPURINOL (Verified Allergy, Unknown, 12/20/18) Objective Vital Signs Last 24 Hour Vital Signs Date Time Temp Pulse Resp B/P (MAP) Pulse Ox O2 Delivery O2 Flow Rate FiO2 12/27/18 09:19 100 12/27/18 09:14 84 24 40 12/27/18 09:00 78 26 149/61 (90) 100 12/27/18 08:00 99.3 80 26 150/59 (89) 100 12/27/18 08:00 Mechanical Ventilator 12/27/18 07:10 40 12/27/18 07:10 40 12/27/18 07:08 63 15 100 Mechanical Ventilator 40 12/27/18 07:00 68 15 99 Mechanical Ventilator 40 12/27/18 07:00 67 17 145/51 (82) 100 12/27/18 06:58 65 16 40 12/27/18 06:00 72 20 142/72 (95) 100 12/27/18 05:39 57 15 40 12/27/18 05:00 70 20 131/56 (81) 100 12/27/18 04:00 98.6 64 17 141/64 (89) 100 12/27/18 04:00 Mechanical Ventilator 12/27/18 04:00 40 12/27/18 04:00 70 12/27/18 03:10 74 15 100 Mechanical Ventilator 40 12/27/18 03:10 74 15 40 12/27/18 03:00 66 18 125/48 (73) 100 12/27/18 02:00 71 20 131/56 (81) 100 12/27/18 01:27 40 12/27/18 01:27 74 16 100 Mechanical Ventilator 40 12/27/18 01:20 75 16 40 12/27/18 01:18 72 16 100 Mechanical Ventilator 40 12/27/18 01:00 71 20 135/56 (82) 100 12/27/18 01:00 71 20 135/56 (82) 100 12/27/18 00:00 40 12/27/18 00:00 99.0 70 20 140/50 (80) 100 12/27/18 00:00 70 12/27/18 00:00 Mechanical Ventilator 12/26/18 23:02 71 17 40 12/26/18 23:00 70 20 140/53 (82) 100 12/26/18 22:00 75 20 127/48 (74) 100 12/26/18 21:01 74 20 40 12/26/18 21:00 75 20 121/47 (71) 100 12/26/18 20:00 99.4 67 17 120/47 (71) 100 12/26/18 20:00 Mechanical Ventilator 12/26/18 20:00 40 12/26/18 20:00 67 12/26/18 19:27 77 19 100 Mechanical Ventilator 40 12/26/18 19:26 40 12/26/18 19:17 77 16 100 Mechanical Ventilator 40 12/26/18 19:06 77 22 40 12/26/18 19:00 75 20 121/47 (71) 100 12/26/18 18:00 66 15 121/47 (71) 100 12/26/18 17:25 65 15 40 12/26/18 17:00 66 15 139/60 (86) 100 12/26/18 16:00 73 12/26/18 16:00 99.0 71 18 127/52 (77) 100 12/26/18 16:00 40 12/26/18 15:58 Mechanical Ventilator 12/26/18 15:49 83 22 40 12/26/18 15:00 70 18 128/50 (76) 100 12/26/18 14:00 66 15 134/50 (78) 100 12/26/18 13:15 79 17 40 12/26/18 13:00 65 15 140/60 (86) 100 12/26/18 12:00 40 12/26/18 12:00 72 12/26/18 12:00 99.0 61 15 127/54 (78) 100 12/26/18 12:00 Mechanical Ventilator 12/26/18 11:05 90 26 40 12/26/18 11:00 88 26 140/53 (82) 100 Height (Feet): 5 Height (Inches): 6.00 Weight (Pounds): 214 General Appearance: no acute distress HEENT: other - orally intubated Respiratory/Chest: lungs clear, other - on ventilator Cardiovascular: normal rate, other - RIJ line Abdomen: soft, non tender, other - s/p colostomy Extremities: no edema Neurologic/Psychiatric: alert, responsive Laboratory Tests Test 12/27/18 04:30 White Blood Count 8.3 K/UL (4.8-10.8) Red Blood Count 3.14 M/UL (4.20-5.40) L Hemoglobin 8.4 G/DL (12.0-16.0) L Hematocrit 26.3 % (37.0-47.0) L Mean Corpuscular Volume 84 FL (80-99) Mean Corpuscular Hemoglobin 26.8 PG (27.0-31.0) L Mean Corpuscular Hemoglobin Concent 31.9 G/DL (32.0-36.0) L Red Cell Distribution Width 15.1 % (11.6-14.8) H Platelet Count 253 K/UL (150-450) Mean Platelet Volume 7.3 FL (6.5-10.1) Neutrophils (%) (Auto) 63.1 % (45.0-75.0) Lymphocytes (%) (Auto) 30.6 % (20.0-45.0) Monocytes (%) (Auto) 4.2 % (1.0-10.0) Eosinophils (%) (Auto) 1.6 % (0.0-3.0) Basophils (%) (Auto) 0.4 % (0.0-2.0) Sodium Level 140 MMOL/L (136-145) Potassium Level 3.7 MMOL/L (3.5-5.1) Chloride Level 108 MMOL/L (98-107) H Carbon Dioxide Level 25 MMOL/L (21-32) Anion Gap 7 mmol/L (5-15) Blood Urea Nitrogen 20 mg/dL (7-18) H Creatinine 1.0 MG/DL (0.55-1.30) Estimat Glomerular Filtration Rate mL/min (>60) Glucose Level 126 MG/DL (74-106) H Uric Acid 4.5 MG/DL (2.6-7.2) Calcium Level 8.0 MG/DL (8.5-10.1) L Phosphorus Level 2.7 MG/DL (2.5-4.9) Magnesium Level 1.7 MG/DL (1.8-2.4) L Total Bilirubin 0.3 MG/DL (0.2-1.0) Aspartate Amino Transf (AST/SGOT) 16 U/L (15-37) Alanine Aminotransferase (ALT/SGPT) 13 U/L (12-78) Alkaline Phosphatase 62 U/L (46-116) C-Reactive Protein, Quantitative 16.9 mg/dL (0.00-0.90) H Pro-B-Type Natriuretic Peptide 5755 pg/mL (0-125) H Total Protein 6.8 G/DL (6.4-8.2) Albumin 1.3 G/DL (3.4-5.0) L Globulin 5.5 g/dL Albumin/Globulin Ratio 0.2 (1.0-2.7) L Current Medications Medications (Trade) Dose Ordered Sig/Nora Route PRN Reason Start Time Stop Time Status Last Admin Dose Admin Acetaminophen (Tylenol) 650 mg Q4H PRN GT Mild Pain/Temp > 100.5 12/26/18 11:00 01/25/19 10:59 Ceftriaxone Sodium 1 gm/ Dextrose 55 ml @ 110 mls/hr Q24H IVPB 12/25/18 12:00 01/01/19 11:59 12/26/18 12:16 Chlorhexidine Gluconate ([place]ent[place]-Hex 2%) 1 applic DAILY@2000 TOPIC 12/22/18 20:00 01/21/19 19:59 12/26/18 20:19 Clonidine HCl (Catapres Tab) 0.1 mg Q4H PRN GT SBP > 170mmHg 12/25/18 14:30 01/24/19 14:29 Dextrose 1,000 ml @ 30 mls/hr Q24H IV 12/26/18 12:00 01/25/19 11:59 12/26/18 12:16 Dextrose (Dextrose 50%) 25 ml Q30M PRN IV Hypoglycemia 12/20/18 19:00 01/19/19 18:59 12/26/18 09:31 Dextrose (Dextrose 50%) 50 ml Q30M PRN IV Hypoglycemia 12/20/18 19:00 01/19/19 18:59 Insulin Aspart (NovoLOG) Q6HR SUBQ 12/20/18 12:00 01/19/19 11:59 12/27/18 06:00 Insulin Detemir (Levemir) 6 units BID SUBQ 12/26/18 09:00 01/20/19 08:59 12/27/18 08:39 Ipratropium [place] (Atrovent) 500 mcg Q4HRT HHN 12/26/18 19:00 12/31/18 18:59 12/27/18 07:04 Lansoprazole (Prevacid) 30 mg BID GT 12/20/18 18:00 01/20/19 08:59 12/27/18 08:37 Lorazepam (Ativan 2mg/ml 1ml) 1 mg Q3H PRN IV For Anxiety 12/22/18 09:00 12/29/18 08:59 12/22/18 16:07 Magnesium Sulfate 100 ml @ 100 mls/hr Q1H IVPB 12/27/18 08:45 12/27/18 10:44 12/27/18 09:03 Norepinephrine Bitartrate 4 mg/ Dextrose 250 ml @ 0 mls/hr Q24H IV 12/20/18 07:00 01/19/19 06:59 12/20/18 18:25 Vancomycin HCl (Vanco rx to dose) 1 ea DAILY PRN MISC Per rx protocol 12/20/18 11:00 01/19/19 10:59 Vancomycin HCl 750 mg/Sodium Chloride 275 ml @ 183.333 mls/hr Q24H IVPB 12/26/18 18:00 12/31/18 17:59 12/26/18 17:47 Roland Navarro MD Dec 27, 2018 10:05
--- NOTE | 2018-12-27 10:35 | Nephrology Progress Note ---
Assessment/Plan Problem List: (1) Renal failure (ARF), acute on chronic (2) Sepsis (3) Severe dehydration (4) Hyperglycemia due to type 2 diabetes mellitus (5) Hypotension (6) Respiratory failure with hypoxia (7) Anemia (8) PEG (percutaneous endoscopic gastrostomy) status (9) Colostomy status Assessment Acute renal failure- Multifactorial, Pre Renal on Renal DM OOC Respiratory failure, acute- on Vent in ICU sepsis / Shock sacral ulcer hypernatremia due to water deficit severe protein calorie malnutrition and hypoalbuminemia hypoxemia, severe PEG COlostomy Severe Anemia underlying Plan aim to extubate ! fluids- k , Phos , Mag supplement as needed water via GT antibiotics pressors pulm support 1.5 Units PRBCs transfused 12/20 feeding monitor renal parameters Subjective ROS Limited/Unobtainable: Yes Objective Objective Last 24 Hour Vital Signs Date Time Temp Pulse Resp B/P (MAP) Pulse Ox O2 Delivery O2 Flow Rate FiO2 12/27/18 10:00 72 25 142/55 (84) 100 12/27/18 09:19 100 12/27/18 09:14 84 24 40 12/27/18 09:00 78 26 149/61 (90) 100 12/27/18 08:00 99.3 80 26 150/59 (89) 100 12/27/18 08:00 Mechanical Ventilator 12/27/18 07:10 40 12/27/18 07:10 40 12/27/18 07:08 63 15 100 Mechanical Ventilator 40 12/27/18 07:00 68 15 99 Mechanical Ventilator 40 12/27/18 07:00 67 17 145/51 (82) 100 12/27/18 06:58 65 16 40 12/27/18 06:00 72 20 142/72 (95) 100 12/27/18 05:39 57 15 40 12/27/18 05:00 70 20 131/56 (81) 100 12/27/18 04:00 98.6 64 17 141/64 (89) 100 12/27/18 04:00 Mechanical Ventilator 12/27/18 04:00 40 12/27/18 04:00 70 12/27/18 03:10 74 15 100 Mechanical Ventilator 40 12/27/18 03:10 74 15 40 12/27/18 03:00 66 18 125/48 (73) 100 12/27/18 02:00 71 20 131/56 (81) 100 12/27/18 01:27 40 12/27/18 01:27 74 16 100 Mechanical Ventilator 40 12/27/18 01:20 75 16 40 12/27/18 01:18 72 16 100 Mechanical Ventilator 40 12/27/18 01:00 71 20 135/56 (82) 100 12/27/18 01:00 71 20 135/56 (82) 100 12/27/18 00:00 40 12/27/18 00:00 99.0 70 20 140/50 (80) 100 12/27/18 00:00 70 12/27/18 00:00 Mechanical Ventilator 12/26/18 23:02 71 17 40 12/26/18 23:00 70 20 140/53 (82) 100 12/26/18 22:00 75 20 127/48 (74) 100 12/26/18 21:01 74 20 40 12/26/18 21:00 75 20 121/47 (71) 100 12/26/18 20:00 99.4 67 17 120/47 (71) 100 12/26/18 20:00 Mechanical Ventilator 12/26/18 20:00 40 12/26/18 20:00 67 12/26/18 19:27 77 19 100 Mechanical Ventilator 40 12/26/18 19:26 40 12/26/18 19:17 77 16 100 Mechanical Ventilator 40 12/26/18 19:06 77 22 40 12/26/18 19:00 75 20 121/47 (71) 100 12/26/18 18:00 66 15 121/47 (71) 100 12/26/18 17:25 65 15 40 12/26/18 17:00 66 15 139/60 (86) 100 12/26/18 16:00 73 12/26/18 16:00 99.0 71 18 127/52 (77) 100 12/26/18 16:00 40 12/26/18 15:58 Mechanical Ventilator 12/26/18 15:49 83 22 40 12/26/18 15:00 70 18 128/50 (76) 100 12/26/18 14:00 66 15 134/50 (78) 100 12/26/18 13:15 79 17 40 12/26/18 13:00 65 15 140/60 (86) 100 12/26/18 12:00 40 12/26/18 12:00 72 12/26/18 12:00 99.0 61 15 127/54 (78) 100 12/26/18 12:00 Mechanical Ventilator 12/26/18 11:05 90 26 40 12/26/18 11:00 88 26 140/53 (82) 100 Intake and Output 12/26/18 12/27/18 18:59 06:59 Intake Total 866.665 ml 1155 ml Output Total 1060 ml 650 ml Balance -193.335 ml 505 ml Intake Free Water 50 ml 100 ml IV Total 536.665 ml 735 ml Tube Feeding 280 ml 320 ml Output Urine Total 960 ml 650 ml Stool Total 100 ml Laboratory Tests 12/27/18 04:30: White Blood Count 8.3, Red Blood Count 3.14L, Hemoglobin 8.4L, Hematocrit 26.3L , Mean Corpuscular Volume 84, Mean Corpuscular Hemoglobin 26.8L, Mean Corpuscular Hemoglobin Concent 31.9L, Red Cell Distribution Width 15.1H, Platelet Count 253, Mean Platelet Volume 7.3, Neutrophils (%) (Auto) 63.1, Lymphocytes (%) (Auto) 30.6, Monocytes (%) (Auto) 4.2, Eosinophils (%) (Auto) 1.6, Basophils (%) (Auto) 0.4, Sodium Level 140, Potassium Level 3.7, Chloride Level 108H, Carbon Dioxide Level 25, Anion Gap 7, Blood Urea Nitrogen 20H, Creatinine 1.0, Estimat Glomerular Filtration Rate , Glucose Level 126H, Uric Acid 4.5, Calcium Level 8.0L, Phosphorus Level 2.7, Magnesium Level 1.7L, Total Bilirubin 0.3, Aspartate Amino Transf (AST/SGOT) 16, Alanine Aminotransferase ( ALT/SGPT) 13, Alkaline Phosphatase 62, C-Reactive Protein, Quantitative 16.9H, Pro-B-Type Natriuretic Peptide 5755H, Total Protein 6.8, Albumin 1.3L, Globulin 5.5, Albumin/Globulin Ratio 0.2L Height (Feet): 5 Height (Inches): 6.00 Weight (Pounds): 214 EENT: other - on vent Cardiovascular: normal rate Respiratory/Chest: decreased breath sounds Abdomen: distended Objective no change Servando Cifuentes MD Dec 27, 2018 10:35
--- NOTE | 2018-12-27 11:10 | General Progress Note ---
Assessment/Plan Problem List: (1) Colostomy status ICD Codes: Z93.3 - Colostomy status SNOMED: 05125350, 890577676, [id number] (2) PEG (percutaneous endoscopic gastrostomy) status ICD Codes: Z93.1 - Gastrostomy status SNOMED: 392574684, 640294059 (3) Anemia ICD Codes: D64.9 - Anemia, unspecified SNOMED: 376918622 (4) Respiratory failure with hypoxia ICD Codes: J96.91 - Respiratory failure, unspecified with hypoxia SNOMED: 27689299358572575, 984608447 Qualifiers: Qualified Codes: J96.01 - Acute respiratory failure with hypoxia Status: stable, progressing Assessment/Plan: respiratory failure sepsis ARF G Tube dependent colostomy dependent GTF on hold for today for weaning OB stool r/o GI bleed pending read monitor H&H, prn transfusions bowel regimen ppi electrolyte correction fu labs GI procedures only if emergent on weaning pending wound vac placement Subjective ROS Limited/Unobtainable: No Allergies: Coded Allergies: ALLOPURINOL (Verified Allergy, Unknown, 12/20/18) Objective Last 24 Hour Vital Signs Date Time Temp Pulse Resp B/P (MAP) Pulse Ox O2 Delivery O2 Flow Rate FiO2 12/27/18 11:02 78 24 100 Mechanical Ventilator 40 12/27/18 10:55 64 22 100 Mechanical Ventilator 40 12/27/18 10:00 72 25 142/55 (84) 100 12/27/18 09:19 100 12/27/18 09:14 84 24 40 12/27/18 09:00 78 26 149/61 (90) 100 12/27/18 08:00 99.3 80 26 150/59 (89) 100 12/27/18 08:00 Mechanical Ventilator 12/27/18 07:34 77 12/27/18 07:10 40 12/27/18 07:10 40 12/27/18 07:08 63 15 100 Mechanical Ventilator 40 12/27/18 07:00 68 15 99 Mechanical Ventilator 40 12/27/18 07:00 67 17 145/51 (82) 100 12/27/18 06:58 65 16 40 12/27/18 06:00 72 20 142/72 (95) 100 12/27/18 05:39 57 15 40 12/27/18 05:00 70 20 131/56 (81) 100 12/27/18 04:00 98.6 64 17 141/64 (89) 100 12/27/18 04:00 Mechanical Ventilator 12/27/18 04:00 40 12/27/18 04:00 70 12/27/18 03:10 74 15 100 Mechanical Ventilator 40 12/27/18 03:10 74 15 40 12/27/18 03:00 66 18 125/48 (73) 100 12/27/18 02:00 71 20 131/56 (81) 100 12/27/18 01:27 40 12/27/18 01:27 74 16 100 Mechanical Ventilator 40 12/27/18 01:20 75 16 40 12/27/18 01:18 72 16 100 Mechanical Ventilator 40 12/27/18 01:00 71 20 135/56 (82) 100 12/27/18 01:00 71 20 135/56 (82) 100 12/27/18 00:00 40 12/27/18 00:00 99.0 70 20 140/50 (80) 100 12/27/18 00:00 70 12/27/18 00:00 Mechanical Ventilator 12/26/18 23:02 71 17 40 12/26/18 23:00 70 20 140/53 (82) 100 12/26/18 22:00 75 20 127/48 (74) 100 12/26/18 21:01 74 20 40 12/26/18 21:00 75 20 121/47 (71) 100 12/26/18 20:00 99.4 67 17 120/47 (71) 100 12/26/18 20:00 Mechanical Ventilator 12/26/18 20:00 40 12/26/18 20:00 67 12/26/18 19:27 77 19 100 Mechanical Ventilator 40 12/26/18 19:26 40 12/26/18 19:17 77 16 100 Mechanical Ventilator 40 12/26/18 19:06 77 22 40 12/26/18 19:00 75 20 121/47 (71) 100 12/26/18 18:00 66 15 121/47 (71) 100 12/26/18 17:25 65 15 40 12/26/18 17:00 66 15 139/60 (86) 100 12/26/18 16:00 73 12/26/18 16:00 99.0 71 18 127/52 (77) 100 12/26/18 16:00 40 12/26/18 15:58 Mechanical Ventilator 12/26/18 15:49 83 22 40 12/26/18 15:00 70 18 128/50 (76) 100 12/26/18 14:00 66 15 134/50 (78) 100 12/26/18 13:15 79 17 40 12/26/18 13:00 65 15 140/60 (86) 100 12/26/18 12:00 40 12/26/18 12:00 72 12/26/18 12:00 99.0 61 15 127/54 (78) 100 12/26/18 12:00 Mechanical Ventilator Intake and Output 12/26/18 12/27/18 19:00 07:00 Intake Total 1089.665 ml 932 ml Output Total 1100 ml 860 ml Balance -10.335 ml 72 ml Intake Free Water 50 ml 100 ml IV Total 719.665 ml 552 ml Tube Feeding 320 ml 280 ml Output Urine Total 1000 ml 710 ml Stool Total 100 ml 150 ml Laboratory Tests 12/27/18 04:30: White Blood Count 8.3, Red Blood Count 3.14L, Hemoglobin 8.4L, Hematocrit 26.3L , Mean Corpuscular Volume 84, Mean Corpuscular Hemoglobin 26.8L, Mean Corpuscular Hemoglobin Concent 31.9L, Red Cell Distribution Width 15.1H, Platelet Count 253, Mean Platelet Volume 7.3, Neutrophils (%) (Auto) 63.1, Lymphocytes (%) (Auto) 30.6, Monocytes (%) (Auto) 4.2, Eosinophils (%) (Auto) 1.6, Basophils (%) (Auto) 0.4, Sodium Level 140, Potassium Level 3.7, Chloride Level 108H, Carbon Dioxide Level 25, Anion Gap 7, Blood Urea Nitrogen 20H, Creatinine 1.0, Estimat Glomerular Filtration Rate , Glucose Level 126H, Uric Acid 4.5, Calcium Level 8.0L, Phosphorus Level 2.7, Magnesium Level 1.7L, Total Bilirubin 0.3, Aspartate Amino Transf (AST/SGOT) 16, Alanine Aminotransferase ( ALT/SGPT) 13, Alkaline Phosphatase 62, C-Reactive Protein, Quantitative 16.9H, Pro-B-Type Natriuretic Peptide 5755H, Total Protein 6.8, Albumin 1.3L, Globulin 5.5, Albumin/Globulin Ratio 0.2L Height (Feet): 5 Height (Inches): 6.00 Weight (Pounds): 214 General Appearance: lethargic EENT: normal ENT inspection Neck: supple Cardiovascular: normal rate Respiratory/Chest: decreased breath sounds Abdomen: normal bowel sounds, non tender, soft Extremities: non-tender Horacio Vora MD Dec 27, 2018 11:10
[2018-12-27] MEDS: cefTRIAXone 1 GM in D5W 55 ML IVPB SCH (11:27)
--- NOTE | 2018-12-27 12:20 | Cardiac Electrophysiology PN ---
Assessment/Plan Assessment/Plan 1. S/P septic and hypovolemic shock in view of high lactic acid of 7.5 as well as severe dehydration. The patient has received 5 liters of normal saline. Off Levophed. EF 50 to 55 percent. Continue iv fluids 2. Troponin leak due to renal failure. EKG does not show any acute ST-T wave abnormality and shows sinus tachycardia of 102 with only left atrial enlargement. 3. S/P Respiratory failure. Extubated today 4. Transient bradycardia. Will start Dopamine if recurs and persists 5. Status post colostomy bag. 6. Severe dehydration with renal failure and hypernatremia. On IV fluids per Dr. Cifuentes. 7. Stage IV sacral decubitus ulcer. 8. Anemia of chronic disease. S/p PRBC . 9. Dysphagia, status post PEG placement. WELLINGTON RN Subjective Subjective Off pressors in ICU. Extubated earlier today Objective Last 24 Hour Vital Signs Date Time Temp Pulse Resp B/P (MAP) Pulse Ox O2 Delivery O2 Flow Rate FiO2 12/27/18 11:40 Simple Mask 12.0 12/27/18 11:40 40 12/27/18 11:40 12.0 40 12/27/18 11:02 78 24 100 Mechanical Ventilator 40 12/27/18 11:00 79 19 159/65 (96) 100 12/27/18 10:55 64 22 100 Mechanical Ventilator 40 12/27/18 10:00 72 25 142/55 (84) 100 12/27/18 09:19 100 12/27/18 09:14 84 24 40 12/27/18 09:00 78 26 149/61 (90) 100 12/27/18 08:00 99.3 80 26 150/59 (89) 100 12/27/18 08:00 Mechanical Ventilator 12/27/18 07:34 77 12/27/18 07:10 40 12/27/18 07:10 40 12/27/18 07:08 63 15 100 Mechanical Ventilator 40 12/27/18 07:00 68 15 99 Mechanical Ventilator 40 12/27/18 07:00 67 17 145/51 (82) 100 12/27/18 06:58 65 16 40 12/27/18 06:00 72 20 142/72 (95) 100 12/27/18 05:39 57 15 40 12/27/18 05:00 70 20 131/56 (81) 100 6/26/19 04:00 98.6 64 17 141/64 (89) 100 12/27/18 04:00 Mechanical Ventilator 12/27/18 04:00 40 12/27/18 04:00 70 12/27/18 03:10 74 15 100 Mechanical Ventilator 40 12/27/18 03:10 74 15 40 12/27/18 03:00 66 18 125/48 (73) 100 12/27/18 02:00 71 20 131/56 (81) 100 12/27/18 01:27 40 12/27/18 01:27 74 16 100 Mechanical Ventilator 40 12/27/18 01:20 75 16 40 12/27/18 01:18 72 16 100 Mechanical Ventilator 40 12/27/18 01:00 71 20 135/56 (82) 100 12/27/18 01:00 71 20 135/56 (82) 100 12/27/18 00:00 40 12/27/18 00:00 99.0 70 20 140/50 (80) 100 12/27/18 00:00 70 12/27/18 00:00 Mechanical Ventilator 12/26/18 23:02 71 17 40 12/26/18 23:00 70 20 140/53 (82) 100 12/26/18 22:00 75 20 127/48 (74) 100 12/26/18 21:01 74 20 40 12/26/18 21:00 75 20 121/47 (71) 100 12/26/18 20:00 99.4 67 17 120/47 (71) 100 12/26/18 20:00 Mechanical Ventilator 12/26/18 20:00 40 12/26/18 20:00 67 12/26/18 19:27 77 19 100 Mechanical Ventilator 40 12/26/18 19:26 40 12/26/18 19:17 77 16 100 Mechanical Ventilator 40 12/26/18 19:06 77 22 40 12/26/18 19:00 75 20 121/47 (71) 100 12/26/18 18:00 66 15 121/47 (71) 100 12/26/18 17:25 65 15 40 12/26/18 17:00 66 15 139/60 (86) 100 12/26/18 16:00 73 12/26/18 16:00 99.0 71 18 127/52 (77) 100 12/26/18 16:00 40 12/26/18 15:58 Mechanical Ventilator 12/26/18 15:49 83 22 40 12/26/18 15:00 70 18 128/50 (76) 100 12/26/18 14:00 66 15 134/50 (78) 100 12/26/18 13:15 79 17 40 12/26/18 13:00 65 15 140/60 (86) 100 Intake and Output 12/26/18 12/27/18 19:00 07:00 Intake Total 1089.665 ml 932 ml Output Total 1100 ml 860 ml Balance -10.335 ml 72 ml Intake Free Water 50 ml 100 ml IV Total 719.665 ml 552 ml Tube Feeding 320 ml 280 ml Output Urine Total 1000 ml 710 ml Stool Total 100 ml 150 ml Laboratory Tests Test 12/27/18 04:30 White Blood Count 8.3 K/UL (4.8-10.8) Red Blood Count 3.14 M/UL (4.20-5.40) L Hemoglobin 8.4 G/DL (12.0-16.0) L Hematocrit 26.3 % (37.0-47.0) L Mean Corpuscular Volume 84 FL (80-99) Mean Corpuscular Hemoglobin 26.8 PG (27.0-31.0) L Mean Corpuscular Hemoglobin Concent 31.9 G/DL (32.0-36.0) L Red Cell Distribution Width 15.1 % (11.6-14.8) H Platelet Count 253 K/UL (150-450) Mean Platelet Volume 7.3 FL (6.5-10.1) Neutrophils (%) (Auto) 63.1 % (45.0-75.0) Lymphocytes (%) (Auto) 30.6 % (20.0-45.0) Monocytes (%) (Auto) 4.2 % (1.0-10.0) Eosinophils (%) (Auto) 1.6 % (0.0-3.0) Basophils (%) (Auto) 0.4 % (0.0-2.0) Sodium Level 140 MMOL/L (136-145) Potassium Level 3.7 MMOL/L (3.5-5.1) Chloride Level 108 MMOL/L (98-107) H Carbon Dioxide Level 25 MMOL/L (21-32) Anion Gap 7 mmol/L (5-15) Blood Urea Nitrogen 20 mg/dL (7-18) H Creatinine 1.0 MG/DL (0.55-1.30) Estimat Glomerular Filtration Rate mL/min (>60) Glucose Level 126 MG/DL (74-106) H Uric Acid 4.5 MG/DL (2.6-7.2) Calcium Level 8.0 MG/DL (8.5-10.1) L Phosphorus Level 2.7 MG/DL (2.5-4.9) Magnesium Level 1.7 MG/DL (1.8-2.4) L Total Bilirubin 0.3 MG/DL (0.2-1.0) Aspartate Amino Transf (AST/SGOT) 16 U/L (15-37) Alanine Aminotransferase (ALT/SGPT) 13 U/L (12-78) Alkaline Phosphatase 62 U/L (46-116) C-Reactive Protein, Quantitative 16.9 mg/dL (0.00-0.90) H Pro-B-Type Natriuretic Peptide 5755 pg/mL (0-125) H Total Protein 6.8 G/DL (6.4-8.2) Albumin 1.3 G/DL (3.4-5.0) L Globulin 5.5 g/dL Albumin/Globulin Ratio 0.2 (1.0-2.7) L Objective HEAD AND NECK: No JVD. LUNGS: Coarse rhonchi orally intubated. CARDIOVASCULAR:Tachycardic, S1, S2 with no gallop or murmur. ABDOMEN: Soft and nontender. EXTREMITIES: No pitting edema. G-tube and a colostomy bag in place. Logan Singh MD Dec 27, 2018 12:20
--- NOTE | 2018-12-27 12:26 | Diagnostic Imaging Report ---
Indication: Dyspnea Comparison: 12/23/2018 A single view chest radiograph was obtained. Findings: Exam limited by rotation. There is a dense opacification of the left lung base obscuring the left heart border and diaphragm. There is evidence of mild pulmonary vascular congestion. Endotracheal tube and right jugular central venous catheter appear stable. IMPRESSION: Development of a left basilar density which could be a left pleural effusion and/or infiltrate. Development of mild pulmonary vascular congestion
[2018-12-27] MEDS ORDERED: Tubing IV Secondary IV ONE (12:31)
[2018-12-27] MEDS ORDERED: NS 275ml ONE (12:31)
--- NOTE | 2018-12-27 13:57 | Surgery Progress Note ---
Surgery Progress Note Subjective Additional Comments extubated. improved. alert Objective Last 24 Hour Vital Signs Date Time Temp Pulse Resp B/P (MAP) Pulse Ox O2 Delivery O2 Flow Rate FiO2 12/27/18 12:00 99.3 81 29 142/50 (80) 99 12/27/18 11:40 Simple Mask 12.0 12/27/18 11:40 40 12/27/18 11:40 12.0 40 12/27/18 11:02 78 24 100 Mechanical Ventilator 40 12/27/18 11:00 79 19 159/65 (96) 100 12/27/18 10:55 64 22 100 Mechanical Ventilator 40 12/27/18 10:00 72 25 142/55 (84) 100 12/27/18 09:19 100 12/27/18 09:14 84 24 40 12/27/18 09:00 78 26 149/61 (90) 100 12/27/18 08:00 99.3 80 26 150/59 (89) 100 12/27/18 08:00 Mechanical Ventilator 12/27/18 07:34 77 12/27/18 07:10 40 12/27/18 07:10 40 12/27/18 07:08 63 15 100 Mechanical Ventilator 40 12/27/18 07:00 68 15 99 Mechanical Ventilator 40 12/27/18 07:00 67 17 145/51 (82) 100 12/27/18 06:58 65 16 40 12/27/18 06:00 72 20 142/72 (95) 100 12/27/18 05:39 57 15 40 12/27/18 05:00 70 20 131/56 (81) 100 12/27/18 04:00 98.6 64 17 141/64 (89) 100 12/27/18 04:00 Mechanical Ventilator 12/27/18 04:00 40 12/27/18 04:00 70 12/27/18 03:10 74 15 100 Mechanical Ventilator 40 12/27/18 03:10 74 15 40 12/27/18 03:00 66 18 125/48 (73) 100 12/27/18 02:00 71 20 131/56 (81) 100 12/27/18 01:27 40 12/27/18 01:27 74 16 100 Mechanical Ventilator 40 12/27/18 01:20 75 16 40 12/27/18 01:18 72 16 100 Mechanical Ventilator 40 12/27/18 01:00 71 20 135/56 (82) 100 12/27/18 01:00 71 20 135/56 (82) 100 12/27/18 00:00 40 12/27/18 00:00 99.0 70 20 140/50 (80) 100 12/27/18 00:00 70 12/27/18 00:00 Mechanical Ventilator 12/26/18 23:02 71 17 40 12/26/18 23:00 70 20 140/53 (82) 100 12/26/18 22:00 75 20 127/48 (74) 100 12/26/18 21:01 74 20 40 12/26/18 21:00 75 20 121/47 (71) 100 12/26/18 20:00 99.4 67 17 120/47 (71) 100 12/26/18 20:00 Mechanical Ventilator 12/26/18 20:00 40 12/26/18 20:00 67 12/26/18 19:27 77 19 100 Mechanical Ventilator 40 12/26/18 19:26 40 12/26/18 19:17 77 16 100 Mechanical Ventilator 40 12/26/18 19:06 77 22 40 12/26/18 19:00 75 20 121/47 (71) 100 12/26/18 18:00 66 15 121/47 (71) 100 12/26/18 17:25 65 15 40 12/26/18 17:00 66 15 139/60 (86) 100 12/26/18 16:00 73 12/26/18 16:00 99.0 71 18 127/52 (77) 100 12/26/18 16:00 40 12/26/18 15:58 Mechanical Ventilator 12/26/18 15:49 83 22 40 12/26/18 15:00 70 18 128/50 (76) 100 12/26/18 14:00 66 15 134/50 (78) 100 I&O Intake and Output 12/26/18 12/27/18 19:00 07:00 Intake Total 1089.665 ml 932 ml Output Total 1100 ml 860 ml Balance -10.335 ml 72 ml Intake Free Water 50 ml 100 ml IV Total 719.665 ml 552 ml Tube Feeding 320 ml 280 ml Output Urine Total 1000 ml 710 ml Stool Total 100 ml 150 ml Dressing: saturated Wound: clean Cardiovascular: RSR Respiratory: clear Abdomen: soft, present bowel sounds, non-distended Extremities: no cyanosis Laboratory Tests Test 12/27/18 04:30 White Blood Count 8.3 K/UL (4.8-10.8) Red Blood Count 3.14 M/UL (4.20-5.40) L Hemoglobin 8.4 G/DL (12.0-16.0) L Hematocrit 26.3 % (37.0-47.0) L Mean Corpuscular Volume 84 FL (80-99) Mean Corpuscular Hemoglobin 26.8 PG (27.0-31.0) L Mean Corpuscular Hemoglobin Concent 31.9 G/DL (32.0-36.0) L Red Cell Distribution Width 15.1 % (11.6-14.8) H Platelet Count 253 K/UL (150-450) Mean Platelet Volume 7.3 FL (6.5-10.1) Neutrophils (%) (Auto) 63.1 % (45.0-75.0) Lymphocytes (%) (Auto) 30.6 % (20.0-45.0) Monocytes (%) (Auto) 4.2 % (1.0-10.0) Eosinophils (%) (Auto) 1.6 % (0.0-3.0) Basophils (%) (Auto) 0.4 % (0.0-2.0) Sodium Level 140 MMOL/L (136-145) Potassium Level 3.7 MMOL/L (3.5-5.1) Chloride Level 108 MMOL/L (98-107) H Carbon Dioxide Level 25 MMOL/L (21-32) Anion Gap 7 mmol/L (5-15) Blood Urea Nitrogen 20 mg/dL (7-18) H Creatinine 1.0 MG/DL (0.55-1.30) Estimat Glomerular Filtration Rate mL/min (>60) Glucose Level 126 MG/DL (74-106) H Uric Acid 4.5 MG/DL (2.6-7.2) Calcium Level 8.0 MG/DL (8.5-10.1) L Phosphorus Level 2.7 MG/DL (2.5-4.9) Magnesium Level 1.7 MG/DL (1.8-2.4) L Total Bilirubin 0.3 MG/DL (0.2-1.0) Aspartate Amino Transf (AST/SGOT) 16 U/L (15-37) Alanine Aminotransferase (ALT/SGPT) 13 U/L (12-78) Alkaline Phosphatase 62 U/L (46-116) C-Reactive Protein, Quantitative 16.9 mg/dL (0.00-0.90) H Pro-B-Type Natriuretic Peptide 5755 pg/mL (0-125) H Total Protein 6.8 G/DL (6.4-8.2) Albumin 1.3 G/DL (3.4-5.0) L Globulin 5.5 g/dL Albumin/Globulin Ratio 0.2 (1.0-2.7) L Plan Problems: (1) Sepsis Assessment & Plan: cont current ICU care and management Cont IV abx trend labs (2) Severe dehydration (3) Anemia, chronic disease (4) HCAP (healthcare-associated pneumonia) (5) Sacral decubitus ulcer, stage IV Assessment & Plan: Pt presented on admission with full thickness Sacral Pressure Injury with undermining. Bone is palpable. Base of has beefy red granulation with scattered small purple areas. No odor noted .Scant serous exudate noted . Edges pink and flat. (L)13cm x (W)14cm x (D)5.6cm,[id number] 4 by 4cm @11o'clock. DTPI noted to lateral R foot. .Base of wound purple and fluctuant in center with surrounding maroon discoloration (L)1.5cm x (W)1cm. Non-blanchable erythema with fluctuance noted to posterior and medial R heel. L heel boggy but blanchable. Tx.Plan: Cleanse Sacral wound with Saline. Loosely pack with Hydrogel Impregnated Kerlix. Cover with ABD pads and secure with Paper Tape or Tegaderm Daily and prn. Apply Cavilon Skin Barrier to R and Heel and lateral R heel. Ciover with Optifoam drsg. Change every 7 days and PRN. Apply Cavilon Skin Barrier to L heel. Cover with Optifoam drsg. Change every 7 days and prn. APM/VIJI Mattress Overlay. Reposition at least every 2hours or as tolerated. Off-load heels with Pillow. VAC today (6) Hyperglycemia due to type 2 diabetes mellitus (7) Acute metabolic encephalopathy (8) Hypotension (9) ARF (acute renal failure) (10) Respiratory failure with hypoxia Mauro Morrow Dec 27, 2018 13:57
--- NOTE | 2018-12-27 14:48 | Pulmonolgy Critical Care Note ---
Critical Care - Asmt/Plan Assessment/Plan: Pulmonary CCM Progress Note Assessment/Plan Respiratory failure, acute, tolerated weaning today, ABG acceptable on CPAP, CXR possible left effusion vs infiltrate sepsis hypotension sacral ulcer hypernatremia acute renal failure severe protein calorie malnutrition hypoxemia, severe hypercapnia possible pneumonia possible demand ischemia PLAN care noted an reviewed on vent Extubate today, HHN/CPT, PRN BiPAP monitor AC rate monitor acid base antibiotics and cultures noted and reviewed hydration with caution supportive care ICU care nutrition medications/laboratory data/nursing notes/ICU care reviewed in detail note reviewed and edited care discussed with RN and RT ICU time spent 40 minutes Critical Care - Subjective Interval Events: care noted on oxygen ROS Limited/Unobtainable: Yes Condition: critical EKG Rhythm: Sinus Rhythm Critical Care - Objective ET-Tube: 7.5 ET Position: 23 Vital Signs Noted Objective: Sp02 EP Interpretation: reviewed, normal General Appearance: normal inspection, well appearing, no apparent distress, sedated Head: normocephalic, atraumatic Eyes: bilateral eye normal inspection ENT: oral ETT Neck: normal inspection, full range of motion, supple, no meningismus, carotid 2+ Respiratory: decreased breath sounds, moderate breath sounds with some rhonchi left Cardiovascular #1: regular rhythm, no murmur without MRG; Gastrointestinal: non tender, soft, non-distended, no guarding, no rebound Musculoskeletal: no CCE Neurologic: sedated reviewed and edited Micro: Microbiology Date/Time Source Procedure Growth Status 12/21/18 13:30 Blood Blood Culture - Preliminary NO GROWTH Resulted Critical Care - Objective Last 24 Hour Vital Signs Date Time Temp Pulse Resp B/P (MAP) Pulse Ox O2 Delivery O2 Flow Rate FiO2 12/27/18 12:00 99.3 81 29 142/50 (80) 99 12/27/18 11:40 Simple Mask 12.0 12/27/18 11:40 40 12/27/18 11:40 12.0 40 12/27/18 11:02 78 24 100 Mechanical Ventilator 40 12/27/18 11:00 79 19 159/65 (96) 100 12/27/18 10:55 64 22 100 Mechanical Ventilator 40 12/27/18 10:00 72 25 142/55 (84) 100 12/27/18 09:19 100 12/27/18 09:14 84 24 40 12/27/18 09:00 78 26 149/61 (90) 100 12/27/18 08:00 99.3 80 26 150/59 (89) 100 12/27/18 08:00 Mechanical Ventilator 12/27/18 07:34 77 12/27/18 07:10 40 12/27/18 07:10 40 12/27/18 07:08 63 15 100 Mechanical Ventilator 40 12/27/18 07:00 68 15 99 Mechanical Ventilator 40 12/27/18 07:00 67 17 145/51 (82) 100 12/27/18 06:58 65 16 40 12/27/18 06:00 72 20 142/72 (95) 100 12/27/18 05:39 57 15 40 12/27/18 05:00 70 20 131/56 (81) 100 12/27/18 04:00 98.6 64 17 141/64 (89) 100 12/27/18 04:00 Mechanical Ventilator 12/27/18 04:00 40 12/27/18 04:00 70 12/27/18 03:10 74 15 100 Mechanical Ventilator 40 12/27/18 03:10 74 15 40 12/27/18 03:00 66 18 125/48 (73) 100 12/27/18 02:00 71 20 131/56 (81) 100 12/27/18 01:27 40 12/27/18 01:27 74 16 100 Mechanical Ventilator 40 12/27/18 01:20 75 16 40 12/27/18 01:18 72 16 100 Mechanical Ventilator 40 12/27/18 01:00 71 20 135/56 (82) 100 12/27/18 01:00 71 20 135/56 (82) 100 12/27/18 00:00 40 12/27/18 00:00 99.0 70 20 140/50 (80) 100 12/27/18 00:00 70 12/27/18 00:00 Mechanical Ventilator 12/26/18 23:02 71 17 40 12/26/18 23:00 70 20 140/53 (82) 100 12/26/18 22:00 75 20 127/48 (74) 100 12/26/18 21:01 74 20 40 12/26/18 21:00 75 20 121/47 (71) 100 12/26/18 20:00 99.4 67 17 120/47 (71) 100 12/26/18 20:00 Mechanical Ventilator 12/26/18 20:00 40 12/26/18 20:00 67 12/26/18 19:27 77 19 100 Mechanical Ventilator 40 12/26/18 19:26 40 12/26/18 19:17 77 16 100 Mechanical Ventilator 40 12/26/18 19:06 77 22 40 12/26/18 19:00 75 20 121/47 (71) 100 12/26/18 18:00 66 15 121/47 (71) 100 12/26/18 17:25 65 15 40 12/26/18 17:00 66 15 139/60 (86) 100 12/26/18 16:00 73 12/26/18 16:00 99.0 71 18 127/52 (77) 100 12/26/18 16:00 40 12/26/18 15:58 Mechanical Ventilator 12/26/18 15:49 83 22 40 12/26/18 15:00 70 18 128/50 (76) 100 Accucheck: 126 Critical Care - Subjective ROS Limited/Unobtainable: No FI02: 40 Vent Support Breath Rate: 15 Vent Support Mode: CPAP Vent Tidal Volume: 500 Sputum Amount: Moderate PEEP: 5.0 PIP: 26 Tube Feeding Amount: 0 I&O: Intake and Output 12/26/18 12/27/18 19:00 07:00 Intake Total 1089.665 ml 932 ml Output Total 1100 ml 860 ml Balance -10.335 ml 72 ml Intake Free Water 50 ml 100 ml IV Total 719.665 ml 552 ml Tube Feeding 320 ml 280 ml Output Urine Total 1000 ml 710 ml Stool Total 100 ml 150 ml ET-Tube: 7.5 ET Position: 23 Minh Dunbar MD Dec 27, 2018 14:48
--- NOTE | 2018-12-27 15:06 | Hematology/Onc Progress Note ---
Assessment/Plan Assessment/Plan Assessment and Recs: # Anemia of chronic disease due to underlying chronic medical issues, multifactorial, ferritin 366, tibc 144 --> Anemia workup has been reviewed, rule out gi bleed --> No evidence of hemolysis is noted, peripheral smear has been reviewed. --> Hgb goal >7. Transfuse prn. --> Epogen or iron at this time is not particularly indicated --> Medications have been reviewed --> low threshold for gi evaluation in case has occult + --> Hgb trend: 9.3-->9.5-->8.4 # Recanalized dvt of the right lower extremity --> given it has healed/recanalized, is not acute okay for just heparin prophylactic dosing --> continue heparin sq bid dosing # Leukocytosis/elevated white blood cell count, is due to underlying sepsis urine infection+ --> Currently resolved --> ID is following, appreciate recs --> have reviewed peripheral smear and bandemia/neutrophilia noted --> continue antibiotics per ID --> monitor for resolution --> trend 15-->24-->21k-->17.4-->11.2-->8.3 # Respiratory failure with hypoxia --> s/p vent placement intubated 12/20/18, --> pulm eval --> Currently weaning from vent to cpap on 12/27 # Sacral decubitus ulcer, stage IV --> per surg # HCAP (healthcare-associated pneumonia) # ARF (acute renal failure) --> per renal # Hyperglycemia due to type 2 diabetes mellitus # Acute metabolic encephalopathy # Severe dehydration The timing of this note does not necessarily reflect the time of the patient was seen. GREATLY APPRECIATE CONSULTATION. Subjective ROS Limited/Unobtainable: Yes Allergies: Coded Allergies: ALLOPURINOL (Verified Allergy, Unknown, 12/20/18) Subjective 12/21: no events, on abx, with pressor 12/22: Pt to start weaning off of vent. Remains on abx. CBC reviewed. 12/24: Pressor prn for HR <50. H/H stable. WBC improved. 12/26: Pt remains in ICU. Pt awake and responsive. Extubation cancelled per Dr Dunbar. 12/27: Pt remains in icu. CXR today shows development of a left basilar density which could be a left pleural effusion and/or infiltrate. Weaning from vent started with CPAP. Objective Objective Current Medications Medications (Trade) Dose Ordered Sig/Nora Route PRN Reason Start Time Stop Time Status Last Admin Dose Admin Acetaminophen (Tylenol) 650 mg Q4H PRN GT Mild Pain/Temp > 100.5 12/26/18 11:00 01/25/19 10:59 Ceftriaxone Sodium 1 gm/ Dextrose 55 ml @ 110 mls/hr Q24H IVPB 12/25/18 12:00 01/01/19 11:59 12/27/18 11:27 Chlorhexidine Gluconate (Valentina-Hex 2%) 1 applic DAILY@2000 TOPIC 12/22/18 20:00 01/21/19 19:59 12/26/18 20:19 Clonidine HCl (Catapres Tab) 0.1 mg Q4H PRN GT SBP > 170mmHg 12/25/18 14:30 01/24/19 14:29 Dextrose 1,000 ml @ 40 mls/hr Q24H IV 12/27/18 12:00 01/26/19 11:59 12/27/18 12:26 Dextrose (Dextrose 50%) 25 ml Q30M PRN IV Hypoglycemia 12/20/18 19:00 01/19/19 18:59 12/26/18 09:31 Dextrose (Dextrose 50%) 50 ml Q30M PRN IV Hypoglycemia 12/20/18 19:00 01/19/19 18:59 Insulin Aspart (NovoLOG) Q6HR SUBQ 12/20/18 12:00 01/19/19 11:59 12/27/18 11:44 Insulin Detemir (Levemir) 6 units BID SUBQ 12/26/18 09:00 01/20/19 08:59 12/27/18 08:39 Ipratropium [place] (Atrovent) 500 mcg Q4HRT HHN 12/26/18 19:00 12/31/18 18:59 12/27/18 10:57 Lansoprazole (Prevacid) 30 mg BID GT 12/20/18 18:00 01/20/19 08:59 12/27/18 08:37 Lorazepam (Ativan 2mg/ml 1ml) 1 mg Q3H PRN IV For Anxiety 12/22/18 09:00 12/29/18 08:59 12/22/18 16:07 Norepinephrine Bitartrate 4 mg/ Dextrose 250 ml @ 0 mls/hr Q24H IV 12/20/18 07:00 01/19/19 06:59 12/20/18 18:25 Vancomycin HCl (Vanco rx to dose) 1 ea DAILY PRN MISC Per rx protocol 12/20/18 11:00 01/19/19 10:59 Vancomycin HCl 750 mg/Sodium Chloride 275 ml @ 183.333 mls/hr Q24H IVPB 12/26/18 18:00 12/31/18 17:59 12/26/18 17:47 Last 24 Hour Vital Signs Date Time Temp Pulse Resp B/P (MAP) Pulse Ox O2 Delivery O2 Flow Rate FiO2 12/27/18 12:00 99.3 81 29 142/50 (80) 99 12/27/18 11:40 Simple Mask 12.0 12/27/18 11:40 40 12/27/18 11:40 12.0 40 12/27/18 11:02 78 24 100 Mechanical Ventilator 40 12/27/18 11:00 79 19 159/65 (96) 100 12/27/18 10:55 64 22 100 Mechanical Ventilator 40 12/27/18 10:00 72 25 142/55 (84) 100 12/27/18 09:19 100 12/27/18 09:14 84 24 40 12/27/18 09:00 78 26 149/61 (90) 100 12/27/18 08:00 99.3 80 26 150/59 (89) 100 12/27/18 08:00 Mechanical Ventilator 12/27/18 07:34 77 12/27/18 07:10 40 12/27/18 07:10 40 12/27/18 07:08 63 15 100 Mechanical Ventilator 40 12/27/18 07:00 68 15 99 Mechanical Ventilator 40 12/27/18 07:00 67 17 145/51 (82) 100 12/27/18 06:58 65 16 40 12/27/18 06:00 72 20 142/72 (95) 100 12/27/18 05:39 57 15 40 12/27/18 05:00 70 20 131/56 (81) 100 12/27/18 04:00 98.6 64 17 141/64 (89) 100 12/27/18 04:00 Mechanical Ventilator 12/27/18 04:00 40 12/27/18 04:00 70 12/27/18 03:10 74 15 100 Mechanical Ventilator 40 12/27/18 03:10 74 15 40 12/27/18 03:00 66 18 125/48 (73) 100 12/27/18 02:00 71 20 131/56 (81) 100 12/27/18 01:27 40 12/27/18 01:27 74 16 100 Mechanical Ventilator 40 12/27/18 01:20 75 16 40 12/27/18 01:18 72 16 100 Mechanical Ventilator 40 12/27/18 01:00 71 20 135/56 (82) 100 12/27/18 01:00 71 20 135/56 (82) 100 12/27/18 00:00 40 12/27/18 00:00 99.0 70 20 140/50 (80) 100 12/27/18 00:00 70 12/27/18 00:00 Mechanical Ventilator 12/26/18 23:02 71 17 40 12/26/18 23:00 70 20 140/53 (82) 100 12/26/18 22:00 75 20 127/48 (74) 100 12/26/18 21:01 74 20 40 12/26/18 21:00 75 20 121/47 (71) 100 12/26/18 20:00 99.4 67 17 120/47 (71) 100 12/26/18 20:00 Mechanical Ventilator 12/26/18 20:00 40 12/26/18 20:00 67 12/26/18 19:27 77 19 100 Mechanical Ventilator 40 12/26/18 19:26 40 12/26/18 19:17 77 16 100 Mechanical Ventilator 40 12/26/18 19:06 77 22 40 12/26/18 19:00 75 20 121/47 (71) 100 12/26/18 18:00 66 15 121/47 (71) 100 12/26/18 17:25 65 15 40 12/26/18 17:00 66 15 139/60 (86) 100 12/26/18 16:00 73 12/26/18 16:00 99.0 71 18 127/52 (77) 100 12/26/18 16:00 40 12/26/18 15:58 Mechanical Ventilator 12/26/18 15:49 83 22 40 12/26/18 15:00 70 18 128/50 (76) 100 12/26/18 14:00 66 15 134/50 (78) 100 12/26/18 13:15 79 17 40 12/26/18 13:00 65 15 140/60 (86) 100 12/26/18 12:00 40 12/26/18 12:00 72 12/26/18 12:00 99.0 61 15 127/54 (78) 100 12/26/18 12:00 Mechanical Ventilator 12/26/18 11:05 90 26 40 12/26/18 11:00 88 26 140/53 (82) 100 12/26/18 10:00 85 26 143/58 (86) 100 12/26/18 09:02 100 12/26/18 09:00 80 25 143/55 (84) 100 12/26/18 08:48 78 26 40 40 12/26/18 08:00 40 12/26/18 08:00 64 12/26/18 08:00 99.1 62 15 139/53 (81) 100 12/26/18 08:00 Mechanical Ventilator 12/26/18 07:09 63 16 124/64 (84) 100 12/26/18 07:00 142/66 12/26/18 06:49 60 15 40 12/26/18 06:00 63 16 127/64 (85) 100 12/26/18 05:02 74 16 40 12/26/18 05:00 65 16 165/56 (92) 100 12/26/18 04:00 Mechanical Ventilator 12/26/18 04:00 99.0 59 16 147/64 (91) 100 12/26/18 04:00 40 12/26/18 04:00 63 12/26/18 03:29 71 16 40 12/26/18 03:00 73 17 139/58 (85) 100 12/26/18 02:00 70 15 136/55 (82) 100 12/26/18 01:05 68 18 40 12/26/18 01:00 69 19 141/60 (87) 100 12/26/18 00:00 Mechanical Ventilator 12/26/18 00:00 86 12/26/18 00:00 22 19 131/50 (77) 100 12/26/18 00:00 98.8 74 19 140/58 (85) 100 12/26/18 00:00 50 12/25/18 23:08 75 19 50 12/25/18 22:00 74 19 131/50 (77) 100 12/25/18 21:00 81 21 154/57 (89) 100 12/25/18 20:54 78 18 50 12/25/18 20:00 50 12/25/18 20:00 Mechanical Ventilator 12/25/18 20:00 99.0 75 17 132/53 (79) 100 12/25/18 20:00 50 12/25/18 19:08 81 18 50 12/25/18 19:00 83 19 141/59 (86) 100 12/25/18 18:00 79 20 122/75 (91) 100 12/25/18 17:00 99.3 83 23 131/106 (114) 100 12/25/18 16:49 84 26 40 12/25/18 16:16 50 12/25/18 16:13 50 12/25/18 16:00 89 12/25/18 16:00 Mechanical Ventilator 12/25/18 16:00 83 22 128/91 (103) 100 12/25/18 15:15 80 23 40 Intake and Output 12/26/18 12/27/18 19:00 07:00 Intake Total 1089.665 ml 932 ml Output Total 1100 ml 860 ml Balance -10.335 ml 72 ml Intake Free Water 50 ml 100 ml IV Total 719.665 ml 552 ml Tube Feeding 320 ml 280 ml Output Urine Total 1000 ml 710 ml Stool Total 100 ml 150 ml Labs Test 12/25/18 04:00 12/26/18 09:23 12/26/18 09:35 12/27/18 04:30 White Blood Count 12.5 K/UL (4.8-10.8) 8.3 K/UL (4.8-10.8) Red Blood Count 3.63 M/UL (4.20-5.40) 3.14 M/UL (4.20-5.40) Hemoglobin 9.8 G/DL (12.0-16.0) 8.4 G/DL (12.0-16.0) Hematocrit 30.6 % (37.0-47.0) 26.3 % (37.0-47.0) Mean Corpuscular Volume 84 FL (80-99) 84 FL (80-99) Mean Corpuscular Hemoglobin 27.0 PG (27.0-31.0) 26.8 PG (27.0-31.0) Mean Corpuscular Hemoglobin Concent 32.1 G/DL (32.0-36.0) 31.9 G/DL (32.0-36.0) Red Cell Distribution Width 15.2 % (11.6-14.8) 15.1 % (11.6-14.8) Platelet Count 258 K/UL (150-450) 253 K/UL (150-450) Mean Platelet Volume 7.8 FL (6.5-10.1) 7.3 FL (6.5-10.1) Neutrophils (%) (Auto) 66.2 % (45.0-75.0) 63.1 % (45.0-75.0) Lymphocytes (%) (Auto) 29.5 % (20.0-45.0) 30.6 % (20.0-45.0) Monocytes (%) (Auto) 2.9 % (1.0-10.0) 4.2 % (1.0-10.0) Eosinophils (%) (Auto) 0.9 % (0.0-3.0) 1.6 % (0.0-3.0) Basophils (%) (Auto) 0.4 % (0.0-2.0) 0.4 % (0.0-2.0) Sodium Level 145 MMOL/L (136-145) 140 MMOL/L (136-145) Potassium Level 3.8 MMOL/L (3.5-5.1) 3.7 MMOL/L (3.5-5.1) Chloride Level 111 MMOL/L (98-107) 108 MMOL/L (98-107) Carbon Dioxide Level 24 MMOL/L (21-32) 25 MMOL/L (21-32) Anion Gap 10 mmol/L (5-15) 7 mmol/L (5-15) Blood Urea Nitrogen 28 mg/dL (7-18) 20 mg/dL (7-18) Creatinine 1.1 MG/DL (0.55-1.30) 1.0 MG/DL (0.55-1.30) Estimat Glomerular Filtration Rate mL/min (>60) mL/min (>60) Glucose Level 81 MG/DL (74-106) 126 MG/DL (74-106) Calcium Level 8.4 MG/DL (8.5-10.1) 8.0 MG/DL (8.5-10.1) Vancomycin Level Trough 22.1 ug/mL (5.0-12.0) Arterial Blood pH 7.447 (7.350-7.450) Arterial Blood Partial Pressure CO2 30.4 mmHg (35.0-45.0) Arterial Blood Partial Pressure O2 74.0 mmHg (75.0-100.0) Arterial Blood HCO3 20.5 mmol/L (22.0-26.0) Arterial Blood Oxygen Saturation 95.5 % (95-100) Arterial Blood Base Excess -3.0 (-2-2) Brock Test Positive Uric Acid 4.5 MG/DL (2.6-7.2) Phosphorus Level 2.7 MG/DL (2.5-4.9) Magnesium Level 1.7 MG/DL (1.8-2.4) Total Bilirubin 0.3 MG/DL (0.2-1.0) Aspartate Amino Transf (AST/SGOT) 16 U/L (15-37) Alanine Aminotransferase (ALT/SGPT) 13 U/L (12-78) Alkaline Phosphatase 62 U/L (46-116) C-Reactive Protein, Quantitative 16.9 mg/dL (0.00-0.90) Pro-B-Type Natriuretic Peptide 5755 pg/mL (0-125) Total Protein 6.8 G/DL (6.4-8.2) Albumin 1.3 G/DL (3.4-5.0) Globulin 5.5 g/dL Albumin/Globulin Ratio 0.2 (1.0-2.7) Height (Feet): 5 Height (Inches): 6.00 Weight (Pounds): 214 Objective Sp02 EP Interpretation: reviewed General Appearance: severe distress, lethargic, Chronically Ill Head: normocephalic, atraumatic Eyes: bilateral eye PERRL, bilateral eye EOMI ENT: dry mucus membranes Neck: full range of motion, supple, no meningismus Respiratory: chest non-tender, respiratory distress, rhonchi. CPAP+ Cardiovascular: regular rate, rhythm, no murmur, tachycardia Gastrointestinal: normal bowel sounds, non tender- Reducible abdominal wall hernia. COLOSTOMY+, GT++ Rectal: other - large sacral Stage 4 ulcer Musculoskeletal: back normal, normal range of motion Psychiatric: mood/affect normal Skin: warm/dry Tobin Stover MD Dec 27, 2018 15:06
[2018-12-27] MEDS: Vancomycin 750mg/NS 275ml IVPB SCH ×2 (17:30)
[2018-12-27] MEDS: Dyna-Hex 2% Top Sol 2oz TOPIC SCH (20:15)
--- NOTE | 2018-12-27 20:56 | General Progress Note ---
Assessment/Plan Problem List: (1) Anemia, chronic disease ICD Codes: D63.8 - Anemia in other chronic diseases classified elsewhere SNOMED: 848615293, 526722573 (2) Severe dehydration ICD Codes: E86.0 - Dehydration SNOMED: 543676015, 256251959 (3) Hyperglycemia due to type 2 diabetes mellitus ICD Codes: E11.65 - Type 2 diabetes mellitus with hyperglycemia SNOMED: 388503511302771, 55123151 Qualifiers: Qualified Codes: E11.65 - Type 2 diabetes mellitus with hyperglycemia; Z79.4 - halfway (current) use of insulin (4) Acute metabolic encephalopathy ICD Codes: G93.41 - Metabolic encephalopathy SNOMED: 56206426, 418521346 (5) Hypotension ICD Codes: I95.9 - Hypotension, unspecified SNOMED: 85743204 (6) ARF (acute renal failure) ICD Codes: N17.9 - Acute kidney failure, unspecified SNOMED: 14068477, 974731956 Qualifiers: Qualified Codes: N17.9 - Acute kidney failure, unspecified (7) Respiratory failure with hypoxia ICD Codes: J96.91 - Respiratory failure, unspecified with hypoxia SNOMED: 86372624227305799, 109016530 Qualifiers: Qualified Codes: J96.01 - Acute respiratory failure with hypoxia (8) Renal failure (ARF), acute on chronic ICD Codes: N17.9 - Acute kidney failure, unspecified; N18.9 - Chronic kidney disease, unspecified SNOMED: 175454341 (9) Anemia ICD Codes: D64.9 - Anemia, unspecified SNOMED: 926645441 Status: stable, progressing Assessment/Plan: s/p extubation afebrile check h/h azotemia lethargic on sedatives anemia improved sacral decub azotemia reviewed chart and labs Subjective ROS Limited/Unobtainable: Yes Allergies: Coded Allergies: ALLOPURINOL (Verified Allergy, Unknown, 12/20/18) Objective Last 24 Hour Vital Signs Date Time Temp Pulse Resp B/P (MAP) Pulse Ox O2 Delivery O2 Flow Rate FiO2 12/27/18 20:00 98.6 63 20 134/53 (80) 100 12/27/18 20:00 2.0 12/27/18 20:00 Nasal Cannula 2.0 12/27/18 20:00 63 12/27/18 19:33 66 22 100 Nasal Cannula 2.0 28 12/27/18 19:00 65 20 134/52 (79) 100 12/27/18 18:00 66 15 150/60 (90) 100 12/27/18 17:00 98.9 64 20 146/58 (87) 100 12/27/18 16:00 69 18 156/64 (94) 100 12/27/18 16:00 Nasal Cannula 2.0 12/27/18 15:41 66 12/27/18 15:25 68 18 100 Nasal Cannula 2.0 28 12/27/18 15:15 2.0 12/27/18 15:10 66 18 100 Nasal Cannula 2.0 28 12/27/18 15:00 68 19 153/61 (91) 100 12/27/18 14:00 85 20 146/66 (92) 99 12/27/18 13:00 75 21 145/59 (87) 100 12/27/18 12:00 99.3 81 29 142/50 (80) 99 12/27/18 11:41 87 12/27/18 11:40 Simple Mask 12.0 12/27/18 11:40 40 12/27/18 11:40 12.0 40 12/27/18 11:02 78 24 100 Mechanical Ventilator 40 12/27/18 11:00 79 19 159/65 (96) 100 12/27/18 10:55 64 22 100 Mechanical Ventilator 40 12/27/18 10:00 72 25 142/55 (84) 100 12/27/18 09:19 100 12/27/18 09:14 84 24 40 12/27/18 09:00 78 26 149/61 (90) 100 12/27/18 08:00 99.3 80 26 150/59 (89) 100 12/27/18 08:00 Mechanical Ventilator 12/27/18 07:34 77 12/27/18 07:10 40 12/27/18 07:10 40 12/27/18 07:08 63 15 100 Mechanical Ventilator 40 12/27/18 07:00 68 15 99 Mechanical Ventilator 40 12/27/18 07:00 67 17 145/51 (82) 100 12/27/18 06:58 65 16 40 12/27/18 06:00 72 20 142/72 (95) 100 12/27/18 05:39 57 15 40 12/27/18 05:00 70 20 131/56 (81) 100 12/27/18 04:00 98.6 64 17 141/64 (89) 100 12/27/18 04:00 Mechanical Ventilator 12/27/18 04:00 40 12/27/18 04:00 70 12/27/18 03:10 74 15 100 Mechanical Ventilator 40 12/27/18 03:10 74 15 40 12/27/18 03:00 66 18 125/48 (73) 100 12/27/18 02:00 71 20 131/56 (81) 100 12/27/18 01:27 40 12/27/18 01:27 74 16 100 Mechanical Ventilator 40 12/27/18 01:20 75 16 40 12/27/18 01:18 72 16 100 Mechanical Ventilator 40 12/27/18 01:00 71 20 135/56 (82) 100 12/27/18 01:00 71 20 135/56 (82) 100 12/27/18 00:00 40 12/27/18 00:00 99.0 70 20 140/50 (80) 100 12/27/18 00:00 70 12/27/18 00:00 Mechanical Ventilator 12/26/18 23:02 71 17 40 12/26/18 23:00 70 20 140/53 (82) 100 12/26/18 22:00 75 20 127/48 (74) 100 12/26/18 21:01 74 20 40 12/26/18 21:00 75 20 121/47 (71) 100 Intake and Output 12/26/18 12/27/18 19:00 07:00 Intake Total 1089.665 ml 932 ml Output Total 1100 ml 860 ml Balance -10.335 ml 72 ml Intake Free Water 50 ml 100 ml IV Total 719.665 ml 552 ml Tube Feeding 320 ml 280 ml Output Urine Total 1000 ml 710 ml Stool Total 100 ml 150 ml Laboratory Tests 12/27/18 04:30: White Blood Count 8.3, Red Blood Count 3.14L, Hemoglobin 8.4L, Hematocrit 26.3L , Mean Corpuscular Volume 84, Mean Corpuscular Hemoglobin 26.8L, Mean Corpuscular Hemoglobin Concent 31.9L, Red Cell Distribution Width 15.1H, Platelet Count 253, Mean Platelet Volume 7.3, Neutrophils (%) (Auto) 63.1, Lymphocytes (%) (Auto) 30.6, Monocytes (%) (Auto) 4.2, Eosinophils (%) (Auto) 1.6, Basophils (%) (Auto) 0.4, Sodium Level 140, Potassium Level 3.7, Chloride Level 108H, Carbon Dioxide Level 25, Anion Gap 7, Blood Urea Nitrogen 20H, Creatinine 1.0, Estimat Glomerular Filtration Rate , Glucose Level 126H, Uric Acid 4.5, Calcium Level 8.0L, Phosphorus Level 2.7, Magnesium Level 1.7L, Total Bilirubin 0.3, Aspartate Amino Transf (AST/SGOT) 16, Alanine Aminotransferase ( ALT/SGPT) 13, Alkaline Phosphatase 62, C-Reactive Protein, Quantitative 16.9H, Pro-B-Type Natriuretic Peptide 5755H, Total Protein 6.8, Albumin 1.3L, Globulin 5.5, Albumin/Globulin Ratio 0.2L Height (Feet): 5 Height (Inches): 6.00 Weight (Pounds): 214 Cardiovascular: normal rate Respiratory/Chest: rhonchi - bilaterally Abdomen: soft Danial Walden MD Dec 27, 2018 20:56
[2018-12-28] VITALS (23 sets, daily range): BP systolic 107–164; BP diastolic 48–74
[2018-12-28] MEDS: Ipratropium 0.02% Inh Soln 2.5ml UD HHN SCH ×6 (03:19→23:13)
[2018-12-28] MEDS: NovoLOG Insulin Flexpen SUBQ SCH ×4 (06:00→23:46)
--- NOTE | 2018-12-28 07:35 | General Progress Note ---
Assessment/Plan Problem List: (1) Colostomy status ICD Codes: Z93.3 - Colostomy status SNOMED: 98163650, 711619881, 704973896 (2) PEG (percutaneous endoscopic gastrostomy) status ICD Codes: Z93.1 - Gastrostomy status SNOMED: 946119287, 651476129 (3) Anemia ICD Codes: D64.9 - Anemia, unspecified SNOMED: 257555283 (4) Respiratory failure with hypoxia ICD Codes: J96.91 - Respiratory failure, unspecified with hypoxia SNOMED: 50955215829561813, 980455510 Qualifiers: Qualified Codes: J96.01 - Acute respiratory failure with hypoxia Status: stable, progressing Assessment/Plan: respiratory failure>>> now extubated sepsis ARF G Tube dependent colostomy dependent GTF on hold for today post extubation OB stool r/o GI bleed pending read monitor H&H, prn transfusions bowel regimen ppi electrolyte correction fu labs GI procedures only if emergent Subjective ROS Limited/Unobtainable: No Allergies: Coded Allergies: ALLOPURINOL (Verified Allergy, Unknown, 12/20/18) Objective Last 24 Hour Vital Signs Date Time Temp Pulse Resp B/P (MAP) Pulse Ox O2 Delivery O2 Flow Rate FiO2 12/28/18 07:20 56 16 100 Nasal Cannula 2.0 28 12/28/18 07:10 69 20 100 Nasal Cannula 2.0 28 12/28/18 06:00 60 17 148/56 (86) 100 12/28/18 05:01 63 18 133/56 (81) 100 12/28/18 05:00 2.0 12/28/18 04:51 65 23 100 Full Face 30 12/28/18 04:00 30.0 12/28/18 04:00 Nasal Cannula 2.0 12/28/18 04:00 97.8 54 17 138/51 (80) 100 12/28/18 04:00 63 12/28/18 03:29 61 17 100 Bi-Pap 30 12/28/18 03:20 56 15 100 Full Face 30 12/28/18 03:19 56 17 100 Bi-Pap 30 12/28/18 03:00 62 18 145/48 (80) 100 12/28/18 02:00 58 16 133/53 (79) 100 12/28/18 01:41 68 20 100 Full Face 30 12/28/18 01:00 67 20 128/66 (86) 100 12/28/18 00:00 30.0 12/28/18 00:00 98.8 62 21 107/58 (74) 100 12/28/18 00:00 Nasal Cannula 2.0 12/27/18 23:58 68 21 100 Nasal Cannula 2.0 28 12/27/18 23:46 68 17 100 Nasal Cannula 2.0 28 12/27/18 23:00 67 18 148/52 (84) 100 12/27/18 22:00 60 20 133/56 (81) 100 12/27/18 21:00 71 20 144/55 (84) 100 12/27/18 20:00 98.6 63 20 134/53 (80) 100 12/27/18 20:00 2.0 12/27/18 20:00 Nasal Cannula 2.0 12/27/18 20:00 63 12/27/18 19:44 67 18 100 Nasal Cannula 2.0 28 12/27/18 19:33 66 22 100 Nasal Cannula 2.0 28 12/27/18 19:00 65 20 134/52 (79) 100 12/27/18 18:00 66 15 150/60 (90) 100 12/27/18 17:00 98.9 64 20 146/58 (87) 100 12/27/18 16:00 69 18 156/64 (94) 100 12/27/18 16:00 Nasal Cannula 2.0 12/27/18 15:41 66 12/27/18 15:25 68 18 100 Nasal Cannula 2.0 28 12/27/18 15:15 2.0 12/27/18 15:10 66 18 100 Nasal Cannula 2.0 28 12/27/18 15:00 68 19 153/61 (91) 100 12/27/18 14:00 85 20 146/66 (92) 99 12/27/18 13:00 75 21 145/59 (87) 100 12/27/18 12:00 99.3 81 29 142/50 (80) 99 12/27/18 11:41 87 12/27/18 11:40 Simple Mask 12.0 12/27/18 11:40 40 12/27/18 11:40 12.0 40 12/27/18 11:02 78 24 100 Mechanical Ventilator 40 12/27/18 11:00 79 19 159/65 (96) 100 12/27/18 10:55 64 22 100 Mechanical Ventilator 40 12/27/18 10:00 72 25 142/55 (84) 100 12/27/18 09:19 100 12/27/18 09:14 84 24 40 12/27/18 09:00 78 26 149/61 (90) 100 12/27/18 08:00 99.3 80 26 150/59 (89) 100 12/27/18 08:00 Mechanical Ventilator 12/27/18 07:34 77 Intake and Output 12/27/18 12/28/18 18:59 06:59 Intake Total 838.333 ml 611.667 ml Output Total 725 ml 870 ml Balance 113.333 ml -258.333 ml IV Total 838.333 ml 611.667 ml Tube Feeding 0 ml 0 ml Output Urine Total 575 ml 670 ml Stool Total 150 ml 200 ml Other 0 ml Height (Feet): 5 Height (Inches): 6.00 Weight (Pounds): 216 General Appearance: lethargic EENT: normal ENT inspection Neck: supple Cardiovascular: normal rate Respiratory/Chest: decreased breath sounds Abdomen: normal bowel sounds, non tender, soft Extremities: non-tender Horacio Vora MD Dec 28, 2018 07:35
[2018-12-28] MEDS: Levemir Flexpen SUBQ SCH ×2 (09:00→17:29)
--- NOTE | 2018-12-28 09:36 | Cardiac Electrophysiology PN ---
Assessment/Plan Assessment/Plan 1. S/P septic and hypovolemic shock in view of high lactic acid of 7.5 as well as severe dehydration. The patient has received 5 liters of normal saline. Off Levophed. EF 50 to 55 percent. 2. Troponin leak due to renal failure. EKG does not show any acute ST-T wave abnormality and shows sinus tachycardia of 102 with only left atrial enlargement. 3. S/P Respiratory failure. Extubated 12/27/18 4. Transient bradycardia. 5. Status post colostomy bag. 6. Severe dehydration with renal failure and hypernatremia. On IV fluids per Dr. Cifuentes. 7. Stage IV sacral decubitus ulcer. 8. Anemia of chronic disease. S/p PRBC . 9. Dysphagia, status post PEG placement. [place] RN Subjective Subjective Off pressors in ICU. Extubated yesterday. Is upset at every one! Objective Last 24 Hour Vital Signs Date Time Temp Pulse Resp B/P (MAP) Pulse Ox O2 Delivery O2 Flow Rate FiO2 12/28/18 08:00 Nasal Cannula 2.0 12/28/18 08:00 2.0 12/28/18 08:00 97.9 63 19 152/59 (90) 99 12/28/18 07:20 56 16 100 Nasal Cannula 2.0 28 12/28/18 07:10 69 20 100 Nasal Cannula 2.0 28 12/28/18 07:00 64 14 156/56 (89) 100 12/28/18 06:00 60 17 148/56 (86) 100 12/28/18 05:01 63 18 133/56 (81) 100 12/28/18 05:00 2.0 12/28/18 04:51 65 23 100 Full Face 30 12/28/18 04:00 30.0 12/28/18 04:00 Nasal Cannula 2.0 12/28/18 04:00 97.8 54 17 138/51 (80) 100 12/28/18 04:00 63 12/28/18 03:29 61 17 100 Bi-Pap 30 12/28/18 03:20 56 15 100 Full Face 30 12/28/18 03:19 56 17 100 Bi-Pap 30 12/28/18 03:00 62 18 145/48 (80) 100 12/28/18 02:00 58 16 133/53 (79) 100 12/28/18 01:41 68 20 100 Full Face 30 12/28/18 01:00 67 20 128/66 (86) 100 12/28/18 00:00 30.0 12/28/18 00:00 98.8 62 21 107/58 (74) 100 12/28/18 00:00 Nasal Cannula 2.0 12/27/18 23:58 68 21 100 Nasal Cannula 2.0 28 12/27/18 23:46 68 17 100 Nasal Cannula 2.0 28 12/27/18 23:00 67 18 148/52 (84) 100 12/27/18 22:00 60 20 133/56 (81) 100 12/27/18 21:00 71 20 144/55 (84) 100 12/27/18 20:00 98.6 63 20 134/53 (80) 100 12/27/18 20:00 2.0 12/27/18 20:00 Nasal Cannula 2.0 12/27/18 20:00 63 12/27/18 19:44 67 18 100 Nasal Cannula 2.0 28 12/27/18 19:33 66 22 100 Nasal Cannula 2.0 28 12/27/18 19:00 65 20 134/52 (79) 100 12/27/18 18:00 66 15 150/60 (90) 100 12/27/18 17:00 98.9 64 20 146/58 (87) 100 12/27/18 16:00 69 18 156/64 (94) 100 12/27/18 16:00 Nasal Cannula 2.0 12/27/18 15:41 66 12/27/18 15:25 68 18 100 Nasal Cannula 2.0 28 12/27/18 15:15 2.0 12/27/18 15:10 66 18 100 Nasal Cannula 2.0 28 12/27/18 15:00 68 19 153/61 (91) 100 12/27/18 14:00 85 20 146/66 (92) 99 12/27/18 13:00 75 21 145/59 (87) 100 12/27/18 12:00 99.3 81 29 142/50 (80) 99 12/27/18 11:41 87 12/27/18 11:40 Simple Mask 12.0 12/27/18 11:40 40 12/27/18 11:40 12.0 40 12/27/18 11:02 78 24 100 Mechanical Ventilator 40 12/27/18 11:00 79 19 159/65 (96) 100 12/27/18 10:55 64 22 100 Mechanical Ventilator 40 12/27/18 10:00 72 25 142/55 (84) 100 Intake and Output 12/27/18 12/28/18 18:59 06:59 Intake Total 838.333 ml 611.667 ml Output Total 725 ml 870 ml Balance 113.333 ml -258.333 ml IV Total 838.333 ml 611.667 ml Tube Feeding 0 ml 0 ml Output Urine Total 575 ml 670 ml Stool Total 150 ml 200 ml Other 0 ml Objective HEAD AND NECK: No JVD. LUNGS: Coarse rhonchi orally intubated. CARDIOVASCULAR:Tachycardic, S1, S2 with no gallop or murmur. ABDOMEN: Soft and nontender. EXTREMITIES: No pitting edema. G-tube and colostomy bag in place. Logan Singh MD Dec 28, 2018 09:36
--- NOTE | 2018-12-28 09:37 | Infectious Diseases Prog Note ---
Assessment/Plan Assessment/Plan A 1. MRSA pneumonia 2. E.coli UTI treated 3. shock 4. renal failure improving 5. respiratory failure 6. diabetes mellitus 7. 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 Left pleural effusion/ atelectasis P 1. continue iv vancomycin 2. Discontinue Rocephin Subjective ROS Limited/Unobtainable: Yes Constitutional: Reports: no symptoms, other - doing better Respiratory: Reports: other - extubated yesterday Allergies: Coded Allergies: ALLOPURINOL (Verified Allergy, Unknown, 12/20/18) Objective Vital Signs Last 24 Hour Vital Signs Date Time Temp Pulse Resp B/P (MAP) Pulse Ox O2 Delivery O2 Flow Rate FiO2 12/28/18 08:00 Nasal Cannula 2.0 12/28/18 08:00 2.0 12/28/18 08:00 97.9 63 19 152/59 (90) 99 12/28/18 07:20 56 16 100 Nasal Cannula 2.0 28 12/28/18 07:10 69 20 100 Nasal Cannula 2.0 28 12/28/18 07:00 64 14 156/56 (89) 100 12/28/18 06:00 60 17 148/56 (86) 100 12/28/18 05:01 63 18 133/56 (81) 100 12/28/18 05:00 2.0 12/28/18 04:51 65 23 100 Full Face 30 12/28/18 04:00 30.0 12/28/18 04:00 Nasal Cannula 2.0 12/28/18 04:00 97.8 54 17 138/51 (80) 100 12/28/18 04:00 63 12/28/18 03:29 61 17 100 Bi-Pap 30 12/28/18 03:20 56 15 100 Full Face 30 12/28/18 03:19 56 17 100 Bi-Pap 30 12/28/18 03:00 62 18 145/48 (80) 100 12/28/18 02:00 58 16 133/53 (79) 100 12/28/18 01:41 68 20 100 Full Face 30 12/28/18 01:00 67 20 128/66 (86) 100 12/28/18 00:00 30.0 12/28/18 00:00 98.8 62 21 107/58 (74) 100 12/28/18 00:00 Nasal Cannula 2.0 12/27/18 23:58 68 21 100 Nasal Cannula 2.0 28 12/27/18 23:46 68 17 100 Nasal Cannula 2.0 28 12/27/18 23:00 67 18 148/52 (84) 100 12/27/18 22:00 60 20 133/56 (81) 100 12/27/18 21:00 71 20 144/55 (84) 100 12/27/18 20:00 98.6 63 20 134/53 (80) 100 12/27/18 20:00 2.0 12/27/18 20:00 Nasal Cannula 2.0 12/27/18 20:00 63 12/27/18 19:44 67 18 100 Nasal Cannula 2.0 28 12/27/18 19:33 66 22 100 Nasal Cannula 2.0 28 12/27/18 19:00 65 20 134/52 (79) 100 12/27/18 18:00 66 15 150/60 (90) 100 12/27/18 17:00 98.9 64 20 146/58 (87) 100 12/27/18 16:00 69 18 156/64 (94) 100 12/27/18 16:00 Nasal Cannula 2.0 12/27/18 15:41 66 12/27/18 15:25 68 18 100 Nasal Cannula 2.0 28 12/27/18 15:15 2.0 12/27/18 15:10 66 18 100 Nasal Cannula 2.0 28 12/27/18 15:00 68 19 153/61 (91) 100 12/27/18 14:00 85 20 146/66 (92) 99 12/27/18 13:00 75 21 145/59 (87) 100 12/27/18 12:00 99.3 81 29 142/50 (80) 99 12/27/18 11:41 87 12/27/18 11:40 Simple Mask 12.0 12/27/18 11:40 40 12/27/18 11:40 12.0 40 12/27/18 11:02 78 24 100 Mechanical Ventilator 40 12/27/18 11:00 79 19 159/65 (96) 100 12/27/18 10:55 64 22 100 Mechanical Ventilator 40 12/27/18 10:00 72 25 142/55 (84) 100 Height (Feet): 5 Height (Inches): 6.00 Weight (Pounds): 216 General Appearance: no acute distress HEENT: mucous membranes moist Respiratory/Chest: lungs clear, other - oxygen by nasal cannula Cardiovascular: normal rate, other - RIJ central line Abdomen: soft, non tender, other - s/p colostomy Extremities: no edema Skin: ulcers, other - stage 4 sacral on wound-vac Current Medications Medications (Trade) Dose Ordered Sig/Nora Route PRN Reason Start Time Stop Time Status Last Admin Dose Admin Acetaminophen (Tylenol) 650 mg Q4H PRN GT Mild Pain/Temp > 100.5 12/26/18 11:00 01/25/19 10:59 Ceftriaxone Sodium 1 gm/ Dextrose 55 ml @ 110 mls/hr Q24H IVPB 12/25/18 12:00 01/01/19 11:59 12/27/18 11:27 Chlorhexidine Gluconate ([place]ent[place]-Hex 2%) 1 applic DAILY@2000 TOPIC 12/22/18 20:00 01/21/19 19:59 12/27/18 20:15 Clonidine HCl (Catapres Tab) 0.1 mg Q4H PRN GT SBP > 170mmHg 12/25/18 14:30 01/24/19 14:29 Dextrose 1,000 ml @ 40 mls/hr Q24H IV 12/27/18 12:00 01/26/19 11:59 12/28/18 01:00 Dextrose (Dextrose 50%) 25 ml Q30M PRN IV Hypoglycemia 12/20/18 19:00 01/19/19 18:59 12/26/18 09:31 Dextrose (Dextrose 50%) 50 ml Q30M PRN IV Hypoglycemia 12/20/18 19:00 01/19/19 18:59 Insulin Aspart (NovoLOG) Q6HR SUBQ 12/20/18 12:00 01/19/19 11:59 12/27/18 17:33 Insulin Detemir (Levemir) 6 units BID SUBQ 12/26/18 09:00 01/20/19 08:59 12/27/18 17:32 Ipratropium [place] (Atrovent) 500 mcg Q4HRT HHN 12/26/18 19:00 12/31/18 18:59 12/28/18 07:13 Lansoprazole (Prevacid) 30 mg BID GT 12/20/18 18:00 01/20/19 08:59 12/28/18 09:07 Lorazepam (Ativan 2mg/ml 1ml) 1 mg Q3H PRN IV For Anxiety 12/22/18 09:00 12/29/18 08:59 12/22/18 16:07 Norepinephrine Bitartrate 4 mg/ Dextrose 250 ml @ 0 mls/hr Q24H IV 12/20/18 07:00 01/19/19 06:59 12/20/18 18:25 Vancomycin HCl (Vanco rx to dose) 1 ea DAILY PRN MISC Per rx protocol 12/20/18 11:00 01/19/19 10:59 Vancomycin HCl 750 mg/Sodium Chloride 275 ml @ 183.333 mls/hr Q24H IVPB 12/26/18 18:00 12/31/18 17:59 12/27/18 17:30 Roland Navarro MD Dec 28, 2018 09:37
--- NOTE | 2018-12-28 09:45 | Hematology/Onc Progress Note ---
Assessment/Plan Assessment/Plan Assessment and Recs: # Anemia of chronic disease due to underlying chronic medical issues, multifactorial, ferritin 366, tibc 144 --> Anemia workup has been reviewed, rule out gi bleed --> No evidence of hemolysis is noted, peripheral smear has been reviewed. --> Hgb goal >7. Transfuse prn. --> Epogen or iron at this time is not particularly indicated --> Medications have been reviewed --> low threshold for gi evaluation in case has occult + --> Hgb trend: 9.3-->9.5-->8.4 # Recanalized dvt of the right lower extremity --> given it has healed/recanalized, is not acute okay for just heparin prophylactic dosing --> continue heparin sq bid dosing # Leukocytosis/elevated white blood cell count, is due to underlying sepsis urine infection+ --> Currently resolved --> ID is following, appreciate recs --> have reviewed peripheral smear and bandemia/neutrophilia noted --> continue antibiotics per ID --> monitor for resolution --> trend 15-->24-->21k-->17.4-->11.2-->8.3 # Respiratory failure with hypoxia --> Currently on NC 12/28 --> s/p vent placement intubated 12/20/18, --> pulm eval --> weaning from vent to cpap on 12/27 # Sacral decubitus ulcer, stage IV --> per surg # HCAP (healthcare-associated pneumonia) # ARF (acute renal failure) --> per renal # Hyperglycemia due to type 2 diabetes mellitus # Acute metabolic encephalopathy # Severe dehydration The timing of this note does not necessarily reflect the time of the patient was seen. GREATLY APPRECIATE CONSULTATION. Subjective ROS Limited/Unobtainable: Yes Allergies: Coded Allergies: ALLOPURINOL (Verified Allergy, Unknown, 12/20/18) Subjective 12/21: no events, on abx, with pressor 12/22: Pt to start weaning off of vent. Remains on abx. CBC reviewed. 12/24: Pressor prn for HR <50. H/H stable. WBC improved. 12/26: Pt remains in ICU. Pt awake and responsive. Extubation cancelled per Dr Dunbar. 12/27: Pt remains in icu. CXR today shows development of a left basilar density which could be a left pleural effusion and/or infiltrate. Weaning from vent started with CPAP. 12/28: Pt is awake and able to answer for questions and follow simple commands. Sinus rhythm on cardiac rehabilitation specialist. On N/C 2L. O2 sat 100%. No respiratory distress noted. Objective Objective Current Medications Medications (Trade) Dose Ordered Sig/Nora Route PRN Reason Start Time Stop Time Status Last Admin Dose Admin Acetaminophen (Tylenol) 650 mg Q4H PRN GT Mild Pain/Temp > 100.5 12/26/18 11:00 01/25/19 10:59 Acetylcysteine (Mucomyst) 600 mg Q4HRT HHN 12/28/18 11:00 01/27/19 10:59 Chlorhexidine Gluconate (Valentina-Hex 2%) 1 applic DAILY@2000 TOPIC 12/22/18 20:00 01/21/19 19:59 12/27/18 20:15 Clonidine HCl (Catapres Tab) 0.1 mg Q4H PRN GT SBP > 170mmHg 12/25/18 14:30 01/24/19 14:29 Dextrose 1,000 ml @ 40 mls/hr Q24H IV 12/27/18 12:00 01/26/19 11:59 12/28/18 01:00 Dextrose (Dextrose 50%) 25 ml Q30M PRN IV Hypoglycemia 12/20/18 19:00 01/19/19 18:59 12/26/18 09:31 Dextrose (Dextrose 50%) 50 ml Q30M PRN IV Hypoglycemia 12/20/18 19:00 01/19/19 18:59 Insulin Aspart (NovoLOG) Q6HR SUBQ 12/20/18 12:00 01/19/19 11:59 12/27/18 17:33 Insulin Detemir (Levemir) 6 units BID SUBQ 12/26/18 09:00 01/20/19 08:59 12/27/18 17:32 Ipratropium [place] (Atrovent) 500 mcg Q4HRT HHN 12/26/18 19:00 12/31/18 18:59 12/28/18 07:13 Lansoprazole (Prevacid) 30 mg BID GT 12/20/18 18:00 01/20/19 08:59 12/28/18 09:07 Lorazepam (Ativan 2mg/ml 1ml) 1 mg Q3H PRN IV For Anxiety 12/22/18 09:00 12/29/18 08:59 12/22/18 16:07 Norepinephrine Bitartrate 4 mg/ Dextrose 250 ml @ 0 mls/hr Q24H IV 12/20/18 07:00 01/19/19 06:59 12/20/18 18:25 Vancomycin HCl (Vanco rx to dose) 1 ea DAILY PRN MISC Per rx protocol 12/20/18 11:00 01/19/19 10:59 Vancomycin HCl 750 mg/Sodium Chloride 275 ml @ 183.333 mls/hr Q24H IVPB 12/26/18 18:00 12/31/18 17:59 12/27/18 17:30 Last 24 Hour Vital Signs Date Time Temp Pulse Resp B/P (MAP) Pulse Ox O2 Delivery O2 Flow Rate FiO2 12/28/18 08:00 Nasal Cannula 2.0 12/28/18 08:00 2.0 12/28/18 08:00 97.9 63 19 152/59 (90) 99 12/28/18 07:20 56 16 100 Nasal Cannula 2.0 28 12/28/18 07:10 69 20 100 Nasal Cannula 2.0 28 12/28/18 07:00 64 14 156/56 (89) 100 12/28/18 06:00 60 17 148/56 (86) 100 12/28/18 05:01 63 18 133/56 (81) 100 12/28/18 05:00 2.0 12/28/18 04:51 65 23 100 Full Face 30 12/28/18 04:00 30.0 12/28/18 04:00 Nasal Cannula 2.0 12/28/18 04:00 97.8 54 17 138/51 (80) 100 12/28/18 04:00 63 12/28/18 03:29 61 17 100 Bi-Pap 30 12/28/18 03:20 56 15 100 Full Face 30 12/28/18 03:19 56 17 100 Bi-Pap 30 12/28/18 03:00 62 18 145/48 (80) 100 12/28/18 02:00 58 16 133/53 (79) 100 12/28/18 01:41 68 20 100 Full Face 30 12/28/18 01:00 67 20 128/66 (86) 100 12/28/18 00:00 30.0 12/28/18 00:00 98.8 62 21 107/58 (74) 100 12/28/18 00:00 Nasal Cannula 2.0 12/27/18 23:58 68 21 100 Nasal Cannula 2.0 28 12/27/18 23:46 68 17 100 Nasal Cannula 2.0 28 12/27/18 23:00 67 18 148/52 (84) 100 12/27/18 22:00 60 20 133/56 (81) 100 12/27/18 21:00 71 20 144/55 (84) 100 12/27/18 20:00 98.6 63 20 134/53 (80) 100 12/27/18 20:00 2.0 12/27/18 20:00 Nasal Cannula 2.0 12/27/18 20:00 63 12/27/18 19:44 67 18 100 Nasal Cannula 2.0 28 12/27/18 19:33 66 22 100 Nasal Cannula 2.0 28 12/27/18 19:00 65 20 134/52 (79) 100 12/27/18 18:00 66 15 150/60 (90) 100 12/27/18 17:00 98.9 64 20 146/58 (87) 100 12/27/18 16:00 69 18 156/64 (94) 100 12/27/18 16:00 Nasal Cannula 2.0 12/27/18 15:41 66 12/27/18 15:25 68 18 100 Nasal Cannula 2.0 28 12/27/18 15:15 2.0 12/27/18 15:10 66 18 100 Nasal Cannula 2.0 28 12/27/18 15:00 68 19 153/61 (91) 100 12/27/18 14:00 85 20 146/66 (92) 99 12/27/18 13:00 75 21 145/59 (87) 100 12/27/18 12:00 99.3 81 29 142/50 (80) 99 12/27/18 11:41 87 12/27/18 11:40 Simple Mask 12.0 12/27/18 11:40 40 12/27/18 11:40 12.0 40 12/27/18 11:02 78 24 100 Mechanical Ventilator 40 12/27/18 11:00 79 19 159/65 (96) 100 12/27/18 10:55 64 22 100 Mechanical Ventilator 40 12/27/18 10:00 72 25 142/55 (84) 100 12/27/18 09:19 100 12/27/18 09:14 84 24 40 12/27/18 09:00 78 26 149/61 (90) 100 12/27/18 08:00 99.3 80 26 150/59 (89) 100 12/27/18 08:00 Mechanical Ventilator 12/27/18 07:34 77 12/27/18 07:10 40 12/27/18 07:10 40 12/27/18 07:08 63 15 100 Mechanical Ventilator 40 12/27/18 07:00 68 15 99 Mechanical Ventilator 40 12/27/18 07:00 67 17 145/51 (82) 100 12/27/18 06:58 65 16 40 12/27/18 06:00 72 20 142/72 (95) 100 12/27/18 05:39 57 15 40 12/27/18 05:00 70 20 131/56 (81) 100 12/27/18 04:00 98.6 64 17 141/64 (89) 100 12/27/18 04:00 Mechanical Ventilator 12/27/18 04:00 40 12/27/18 04:00 70 12/27/18 03:10 74 15 100 Mechanical Ventilator 40 12/27/18 03:10 74 15 40 12/27/18 03:00 66 18 125/48 (73) 100 12/27/18 02:00 71 20 131/56 (81) 100 12/27/18 01:27 40 12/27/18 01:27 74 16 100 Mechanical Ventilator 40 12/27/18 01:20 75 16 40 12/27/18 01:18 72 16 100 Mechanical Ventilator 40 12/27/18 01:00 71 20 135/56 (82) 100 12/27/18 01:00 71 20 135/56 (82) 100 12/27/18 00:00 40 12/27/18 00:00 99.0 70 20 140/50 (80) 100 12/27/18 00:00 70 12/27/18 00:00 Mechanical Ventilator 12/26/18 23:02 71 17 40 12/26/18 23:00 70 20 140/53 (82) 100 12/26/18 22:00 75 20 127/48 (74) 100 12/26/18 21:01 74 20 40 12/26/18 21:00 75 20 121/47 (71) 100 12/26/18 20:00 99.4 67 17 120/47 (71) 100 12/26/18 20:00 Mechanical Ventilator 12/26/18 20:00 40 12/26/18 20:00 67 12/26/18 19:27 77 19 100 Mechanical Ventilator 40 12/26/18 19:26 40 12/26/18 19:17 77 16 100 Mechanical Ventilator 40 12/26/18 19:06 77 22 40 12/26/18 19:00 75 20 121/47 (71) 100 12/26/18 18:00 66 15 121/47 (71) 100 12/26/18 17:25 65 15 40 12/26/18 17:00 66 15 139/60 (86) 100 12/26/18 16:00 73 12/26/18 16:00 99.0 71 18 127/52 (77) 100 12/26/18 16:00 40 12/26/18 15:58 Mechanical Ventilator 12/26/18 15:49 83 22 40 12/26/18 15:00 70 18 128/50 (76) 100 12/26/18 14:00 66 15 134/50 (78) 100 12/26/18 13:15 79 17 40 12/26/18 13:00 65 15 140/60 (86) 100 12/26/18 12:00 40 12/26/18 12:00 72 12/26/18 12:00 99.0 61 15 127/54 (78) 100 12/26/18 12:00 Mechanical Ventilator 12/26/18 11:05 90 26 40 12/26/18 11:00 88 26 140/53 (82) 100 12/26/18 10:00 85 26 143/58 (86) 100 Intake and Output 12/27/18 12/28/18 18:59 06:59 Intake Total 838.333 ml 611.667 ml Output Total 725 ml 870 ml Balance 113.333 ml -258.333 ml IV Total 838.333 ml 611.667 ml Tube Feeding 0 ml 0 ml Output Urine Total 575 ml 670 ml Stool Total 150 ml 200 ml Other 0 ml Labs Test 12/26/18 09:23 12/26/18 09:35 12/27/18 04:30 Vancomycin Level Trough 22.1 ug/mL (5.0-12.0) Arterial Blood pH 7.447 (7.350-7.450) Arterial Blood Partial Pressure CO2 30.4 mmHg (35.0-45.0) Arterial Blood Partial Pressure O2 74.0 mmHg (75.0-100.0) Arterial Blood HCO3 20.5 mmol/L (22.0-26.0) Arterial Blood Oxygen Saturation 95.5 % (95-100) Arterial Blood Base Excess -3.0 (-2-2) Brock Test Positive White Blood Count 8.3 K/UL (4.8-10.8) Red Blood Count 3.14 M/UL (4.20-5.40) Hemoglobin 8.4 G/DL (12.0-16.0) Hematocrit 26.3 % (37.0-47.0) Mean Corpuscular Volume 84 FL (80-99) Mean Corpuscular Hemoglobin 26.8 PG (27.0-31.0) Mean Corpuscular Hemoglobin Concent 31.9 G/DL (32.0-36.0) Red Cell Distribution Width 15.1 % (11.6-14.8) Platelet Count 253 K/UL (150-450) Mean Platelet Volume 7.3 FL (6.5-10.1) Neutrophils (%) (Auto) 63.1 % (45.0-75.0) Lymphocytes (%) (Auto) 30.6 % (20.0-45.0) Monocytes (%) (Auto) 4.2 % (1.0-10.0) Eosinophils (%) (Auto) 1.6 % (0.0-3.0) Basophils (%) (Auto) 0.4 % (0.0-2.0) Sodium Level 140 MMOL/L (136-145) Potassium Level 3.7 MMOL/L (3.5-5.1) Chloride Level 108 MMOL/L (98-107) Carbon Dioxide Level 25 MMOL/L (21-32) Anion Gap 7 mmol/L (5-15) Blood Urea Nitrogen 20 mg/dL (7-18) Creatinine 1.0 MG/DL (0.55-1.30) Estimat Glomerular Filtration Rate mL/min (>60) Glucose Level 126 MG/DL (74-106) Uric Acid 4.5 MG/DL (2.6-7.2) Calcium Level 8.0 MG/DL (8.5-10.1) Phosphorus Level 2.7 MG/DL (2.5-4.9) Magnesium Level 1.7 MG/DL (1.8-2.4) Total Bilirubin 0.3 MG/DL (0.2-1.0) Aspartate Amino Transf (AST/SGOT) 16 U/L (15-37) Alanine Aminotransferase (ALT/SGPT) 13 U/L (12-78) Alkaline Phosphatase 62 U/L (46-116) C-Reactive Protein, Quantitative 16.9 mg/dL (0.00-0.90) Pro-B-Type Natriuretic Peptide 5755 pg/mL (0-125) Total Protein 6.8 G/DL (6.4-8.2) Albumin 1.3 G/DL (3.4-5.0) Globulin 5.5 g/dL Albumin/Globulin Ratio 0.2 (1.0-2.7) Height (Feet): 5 Height (Inches): 6.00 Weight (Pounds): 216 Objective Sp02 EP Interpretation: reviewed General Appearance: severe distress, lethargic, Chronically Ill Head: normocephalic, atraumatic Eyes: bilateral eye PERRL, bilateral eye EOMI ENT: dry mucus membranes Neck: full range of motion, supple, no meningismus Respiratory: chest non-tender, respiratory distress, rhonchi. CPAP+ Cardiovascular: regular rate, rhythm, no murmur, tachycardia Gastrointestinal: normal bowel sounds, non tender- Reducible abdominal wall hernia. COLOSTOMY+, GT++ Rectal: other - large sacral Stage 4 ulcer Musculoskeletal: back normal, normal range of motion Psychiatric: mood/affect normal Skin: warm/dry Tobin Stover MD Dec 28, 2018 09:45
--- NOTE | 2018-12-28 10:09 | Nephrology Progress Note ---
Assessment/Plan Problem List: (1) Renal failure (ARF), acute on chronic (2) Sepsis (3) Severe dehydration (4) Hyperglycemia due to type 2 diabetes mellitus (5) Hypotension (6) Respiratory failure with hypoxia (7) Anemia (8) PEG (percutaneous endoscopic gastrostomy) status (9) Colostomy status Assessment Acute renal failure- Multifactorial, Pre Renal on Renal DM OOC Respiratory failure, acute- on Vent in ICU sepsis / Shock sacral ulcer hypernatremia due to water deficit severe protein calorie malnutrition and hypoalbuminemia hypoxemia, severe PEG COlostomy Severe Anemia underlying Plan no labs today extubated fluids- k , Phos , Mag supplement as needed water via GT antibiotics pressors pulm support 1.5 Units PRBCs transfused 12/20 feeding monitor renal parameters Subjective ROS Limited/Unobtainable: No Constitutional: Reports: other - extubated Objective Objective Last 24 Hour Vital Signs Date Time Temp Pulse Resp B/P (MAP) Pulse Ox O2 Delivery O2 Flow Rate FiO2 12/28/18 10:00 70 15 162/58 (92) 100 12/28/18 09:00 67 14 156/58 (90) 100 12/28/18 08:00 Nasal Cannula 2.0 12/28/18 08:00 2.0 12/28/18 08:00 97.9 63 19 152/59 (90) 99 12/28/18 07:20 56 16 100 Nasal Cannula 2.0 28 12/28/18 07:10 69 20 100 Nasal Cannula 2.0 28 12/28/18 07:00 64 14 156/56 (89) 100 12/28/18 06:00 60 17 148/56 (86) 100 12/28/18 05:01 63 18 133/56 (81) 100 12/28/18 05:00 2.0 12/28/18 04:51 65 23 100 Full Face 30 12/28/18 04:00 30.0 12/28/18 04:00 Nasal Cannula 2.0 12/28/18 04:00 97.8 54 17 138/51 (80) 100 12/28/18 04:00 63 12/28/18 03:29 61 17 100 Bi-Pap 30 12/28/18 03:20 56 15 100 Full Face 30 12/28/18 03:19 56 17 100 Bi-Pap 30 12/28/18 03:00 62 18 145/48 (80) 100 12/28/18 02:00 58 16 133/53 (79) 100 12/28/18 01:41 68 20 100 Full Face 30 12/28/18 01:00 67 20 128/66 (86) 100 12/28/18 00:00 30.0 12/28/18 00:00 98.8 62 21 107/58 (74) 100 12/28/18 00:00 Nasal Cannula 2.0 12/27/18 23:58 68 21 100 Nasal Cannula 2.0 28 12/27/18 23:46 68 17 100 Nasal Cannula 2.0 28 12/27/18 23:00 67 18 148/52 (84) 100 12/27/18 22:00 60 20 133/56 (81) 100 12/27/18 21:00 71 20 144/55 (84) 100 12/27/18 20:00 98.6 63 20 134/53 (80) 100 12/27/18 20:00 2.0 12/27/18 20:00 Nasal Cannula 2.0 12/27/18 20:00 63 12/27/18 19:44 67 18 100 Nasal Cannula 2.0 28 12/27/18 19:33 66 22 100 Nasal Cannula 2.0 28 12/27/18 19:00 65 20 134/52 (79) 100 12/27/18 18:00 66 15 150/60 (90) 100 12/27/18 17:00 98.9 64 20 146/58 (87) 100 12/27/18 16:00 69 18 156/64 (94) 100 12/27/18 16:00 Nasal Cannula 2.0 12/27/18 15:41 66 12/27/18 15:25 68 18 100 Nasal Cannula 2.0 28 12/27/18 15:15 2.0 12/27/18 15:10 66 18 100 Nasal Cannula 2.0 28 12/27/18 15:00 68 19 153/61 (91) 100 12/27/18 14:00 85 20 146/66 (92) 99 12/27/18 13:00 75 21 145/59 (87) 100 12/27/18 12:00 99.3 81 29 142/50 (80) 99 12/27/18 11:41 87 12/27/18 11:40 Simple Mask 12.0 12/27/18 11:40 40 12/27/18 11:40 12.0 40 12/27/18 11:02 78 24 100 Mechanical Ventilator 40 12/27/18 11:00 79 19 159/65 (96) 100 12/27/18 10:55 64 22 100 Mechanical Ventilator 40 Intake and Output 12/27/18 12/28/18 18:59 06:59 Intake Total 838.333 ml 611.667 ml Output Total 725 ml 870 ml Balance 113.333 ml -258.333 ml IV Total 838.333 ml 611.667 ml Tube Feeding 0 ml 0 ml Output Urine Total 575 ml 670 ml Stool Total 150 ml 200 ml Other 0 ml Height (Feet): 5 Height (Inches): 6.00 Weight (Pounds): 216 General Appearance: no apparent distress EENT: other - extubated Cardiovascular: normal rate Respiratory/Chest: decreased breath sounds Abdomen: distended Objective no change Servando Cifuentes MD Dec 28, 2018 10:09
[2018-12-28] MEDS: Acetylcysteine 20% Soln 4ml HHN SCH ×4 (11:02→23:13)
--- NOTE | 2018-12-28 15:04 | Surgery Progress Note ---
Surgery Progress Note Subjective Additional Comments doing okay. slowly recovering Objective Last 24 Hour Vital Signs Date Time Temp Pulse Resp B/P (MAP) Pulse Ox O2 Delivery O2 Flow Rate FiO2 12/28/18 14:58 64 16 100 Room Air 21 12/28/18 14:48 60 14 100 Room Air 21 12/28/18 13:00 69 8 149/51 (83) 95 12/28/18 12:25 61 12/28/18 12:00 65 17 154/56 (88) 100 12/28/18 12:00 Room Air 12/28/18 11:06 65 16 100 Room Air 21 12/28/18 11:00 67 18 144/56 (85) 100 12/28/18 10:50 67 20 100 Room Air 21 12/28/18 10:00 70 15 162/58 (92) 100 12/28/18 09:00 67 14 156/58 (90) 100 12/28/18 08:00 Nasal Cannula 2.0 12/28/18 08:00 2.0 12/28/18 08:00 97.9 63 19 152/59 (90) 99 12/28/18 07:54 63 12/28/18 07:20 56 16 100 Nasal Cannula 2.0 28 12/28/18 07:10 69 20 100 Nasal Cannula 2.0 28 12/28/18 07:00 64 14 156/56 (89) 100 12/28/18 06:00 60 17 148/56 (86) 100 12/28/18 05:01 63 18 133/56 (81) 100 12/28/18 05:00 2.0 12/28/18 04:51 65 23 100 Full Face 30 12/28/18 04:00 30.0 12/28/18 04:00 Nasal Cannula 2.0 12/28/18 04:00 97.8 54 17 138/51 (80) 100 12/28/18 04:00 63 12/28/18 03:29 61 17 100 Bi-Pap 30 12/28/18 03:20 56 15 100 Full Face 30 12/28/18 03:19 56 17 100 Bi-Pap 30 12/28/18 03:00 62 18 145/48 (80) 100 12/28/18 02:00 58 16 133/53 (79) 100 12/28/18 01:41 68 20 100 Full Face 30 12/28/18 01:00 67 20 128/66 (86) 100 12/28/18 00:00 30.0 12/28/18 00:00 98.8 62 21 107/58 (74) 100 12/28/18 00:00 Nasal Cannula 2.0 12/27/18 23:58 68 21 100 Nasal Cannula 2.0 28 12/27/18 23:46 68 17 100 Nasal Cannula 2.0 28 12/27/18 23:00 67 18 148/52 (84) 100 12/27/18 22:00 60 20 133/56 (81) 100 12/27/18 21:00 71 20 144/55 (84) 100 12/27/18 20:00 98.6 63 20 134/53 (80) 100 12/27/18 20:00 2.0 12/27/18 20:00 Nasal Cannula 2.0 12/27/18 20:00 63 12/27/18 19:44 67 18 100 Nasal Cannula 2.0 28 12/27/18 19:33 66 22 100 Nasal Cannula 2.0 28 12/27/18 19:00 65 20 134/52 (79) 100 12/27/18 18:00 66 15 150/60 (90) 100 12/27/18 17:00 98.9 64 20 146/58 (87) 100 12/27/18 16:00 69 18 156/64 (94) 100 12/27/18 16:00 Nasal Cannula 2.0 12/27/18 15:41 66 12/27/18 15:25 68 18 100 Nasal Cannula 2.0 28 12/27/18 15:15 2.0 12/27/18 15:10 66 18 100 Nasal Cannula 2.0 28 I&O Intake and Output 12/27/18 12/28/18 19:00 07:00 Intake Total 940.000 ml 520 ml Output Total 485 ml 960 ml Balance 455.000 ml -440 ml IV Total 940.000 ml 520 ml Tube Feeding 0 ml 0 ml Output Urine Total 485 ml 760 ml Stool Total 200 ml Other 0 ml Dressing: saturated Wound: other Drains: other Cardiovascular: RSR Respiratory: decreased breath sounds Abdomen: soft, present bowel sounds Extremities: no cyanosis Plan Problems: (1) Sepsis Assessment & Plan: cont current ICU care and management Cont IV abx trend labs (2) Severe dehydration (3) Anemia, chronic disease (4) HCAP (healthcare-associated pneumonia) (5) Sacral decubitus ulcer, stage IV Assessment & Plan: Pt presented on admission with full thickness Sacral Pressure Injury with undermining. Bone is palpable. Base of has beefy red granulation with scattered small purple areas. No odor noted .Scant serous exudate noted . Edges pink and flat. (L)13cm x (W)14cm x (D)5.6cm,[id number] 4 by 4cm @11o'clock. DTPI noted to lateral R foot. .Base of wound purple and fluctuant in center with surrounding maroon discoloration (L)1.5cm x (W)1cm. Non-blanchable erythema with fluctuance noted to posterior and medial R heel. L heel boggy but blanchable. Tx.Plan: Cleanse Sacral wound with Saline. Loosely pack with Hydrogel Impregnated Kerlix. Cover with ABD pads and secure with Paper Tape or Tegaderm Daily and prn. Apply Cavilon Skin Barrier to R and Heel and lateral R heel. Ciover with Optifoam drsg. Change every 7 days and PRN. Apply Cavilon Skin Barrier to L heel. Cover with Optifoam drsg. Change every 7 days and prn. APM/VIJI Mattress Overlay. Reposition at least every 2hours or as tolerated. Off-load heels with Pillow. VAC today (6) Hyperglycemia due to type 2 diabetes mellitus (7) Acute metabolic encephalopathy (8) Hypotension (9) ARF (acute renal failure) (10) Respiratory failure with hypoxia Mauro Morrow Dec 28, 2018 15:04
[2018-12-28] MEDS: Vancomycin 750mg/NS 275ml IVPB SCH ×2 (17:28)
--- NOTE | 2018-12-28 18:15 | General Progress Note ---
Assessment/Plan Problem List: (1) Sepsis ICD Codes: A41.9 - Sepsis, unspecified organism SNOMED: 28766821, 290932801 Qualifiers: Qualified Codes: A41.9 - Sepsis, unspecified organism (2) HCAP (healthcare-associated pneumonia) ICD Codes: J18.9 - Pneumonia, unspecified organism SNOMED: 367773986, 359783586 (3) Sacral decubitus ulcer, stage IV ICD Codes: L89.154 - Pressure ulcer of sacral region, stage 4 SNOMED: 161886286, 738610005 (4) Hyperglycemia due to type 2 diabetes mellitus ICD Codes: E11.65 - Type 2 diabetes mellitus with hyperglycemia SNOMED: 354108267979063, 67830363 Qualifiers: Qualified Codes: E11.65 - Type 2 diabetes mellitus with hyperglycemia; Z79.4 - jail (current) use of insulin (5) Acute metabolic encephalopathy ICD Codes: G93.41 - Metabolic encephalopathy SNOMED: 09624989, 664737429 (6) ARF (acute renal failure) ICD Codes: N17.9 - Acute kidney failure, unspecified SNOMED: 11176298, 448170111 Qualifiers: Qualified Codes: N17.9 - Acute kidney failure, unspecified (7) Respiratory failure with hypoxia ICD Codes: J96.91 - Respiratory failure, unspecified with hypoxia SNOMED: 39219807688950727, 074546835 Qualifiers: Qualified Codes: J96.01 - Acute respiratory failure with hypoxia Status: stable, progressing Assessment/Plan: DC Levemir 6 units bid continue NISS every 6 hours Subjective Allergies: Coded Allergies: ALLOPURINOL (Verified Allergy, Unknown, 12/20/18) All Systems: reviewed and negative except above Subjective events noted extubated - on TF Item Value Date Time Bedside Blood Glucose 97 mg/dl 12/28/18 1729 Bedside Blood Glucose 88 mg/dl 12/28/18 1129 Bedside Blood Glucose 90 mg/dl 12/28/18 0906 Bedside Blood Glucose 86 mg/dl 12/28/18 0600 Bedside Blood Glucose 74 mg/dl 12/28/18 0000 Objective Last 24 Hour Vital Signs Date Time Temp Pulse Resp B/P (MAP) Pulse Ox O2 Delivery O2 Flow Rate FiO2 12/28/18 18:00 60 21 149/54 (85) 98 12/28/18 18:00 68 15 155/57 (89) 100 12/28/18 17:00 97.9 67 14 146/57 (86) 100 12/28/18 16:26 64 12/28/18 16:00 Room Air 12/28/18 16:00 60 21 149/54 (85) 98 12/28/18 15:00 62 17 153/74 (100) 100 12/28/18 14:58 64 16 100 Room Air 21 12/28/18 14:48 60 14 100 Room Air 21 12/28/18 14:00 70 15 147/55 (85) 98 12/28/18 13:00 69 18 149/51 (83) 95 12/28/18 12:25 61 12/28/18 12:00 98.1 65 17 154/56 (88) 100 12/28/18 12:00 Room Air 12/28/18 11:06 65 16 100 Room Air 21 12/28/18 11:00 67 18 144/56 (85) 100 12/28/18 10:50 67 20 100 Room Air 21 12/28/18 10:00 70 15 162/58 (92) 100 12/28/18 09:00 67 14 156/58 (90) 100 12/28/18 08:00 Nasal Cannula 2.0 12/28/18 08:00 2.0 12/28/18 08:00 97.9 63 19 152/59 (90) 99 12/28/18 07:54 63 12/28/18 07:20 56 16 100 Nasal Cannula 2.0 28 12/28/18 07:10 69 20 100 Nasal Cannula 2.0 28 12/28/18 07:00 64 14 156/56 (89) 100 12/28/18 06:00 60 17 148/56 (86) 100 12/28/18 05:01 63 18 133/56 (81) 100 12/28/18 05:00 2.0 12/28/18 04:51 65 23 100 Full Face 30 12/28/18 04:00 30.0 12/28/18 04:00 Nasal Cannula 2.0 12/28/18 04:00 97.8 54 17 138/51 (80) 100 12/28/18 04:00 63 12/28/18 03:29 61 17 100 Bi-Pap 30 12/28/18 03:20 56 15 100 Full Face 30 12/28/18 03:19 56 17 100 Bi-Pap 30 12/28/18 03:00 62 18 145/48 (80) 100 12/28/18 02:00 58 16 133/53 (79) 100 12/28/18 01:41 68 20 100 Full Face 30 12/28/18 01:00 67 20 128/66 (86) 100 12/28/18 00:00 30.0 12/28/18 00:00 98.8 62 21 107/58 (74) 100 12/28/18 00:00 Nasal Cannula 2.0 12/27/18 23:58 68 21 100 Nasal Cannula 2.0 28 12/27/18 23:46 68 17 100 Nasal Cannula 2.0 28 12/27/18 23:00 67 18 148/52 (84) 100 12/27/18 22:00 60 20 133/56 (81) 100 12/27/18 21:00 71 20 144/55 (84) 100 12/27/18 20:00 98.6 63 20 134/53 (80) 100 12/27/18 20:00 2.0 12/27/18 20:00 Nasal Cannula 2.0 12/27/18 20:00 63 12/27/18 19:44 67 18 100 Nasal Cannula 2.0 28 12/27/18 19:33 66 22 100 Nasal Cannula 2.0 28 12/27/18 19:00 65 20 134/52 (79) 100 Intake and Output 12/27/18 12/28/18 19:00 07:00 Intake Total 940.000 ml 520 ml Output Total 485 ml 960 ml Balance 455.000 ml -440 ml IV Total 940.000 ml 520 ml Tube Feeding 0 ml 0 ml Output Urine Total 485 ml 760 ml Stool Total 200 ml Other 0 ml Height (Feet): 5 Height (Inches): 6.00 Weight (Pounds): 216 General Appearance: no apparent distress Neck: normal alignment Cardiovascular: normal rate Respiratory/Chest: decreased breath sounds Abdomen: normal bowel sounds Edema: 1+ Arm (L), 1+ Arm (R), 1+ Leg (L), 1+ Leg (R), 1+ Pedal (L), 1+ Pedal ( R), 1+ Generalized Objective Current Medications Medications (Trade) Dose Ordered Sig/Nora Route PRN Reason Start Time Stop Time Status Last Admin Dose Admin Acetaminophen (Tylenol) 650 mg Q4H PRN GT Mild Pain/Temp > 100.5 12/26/18 11:00 01/25/19 10:59 12/28/18 11:31 Acetylcysteine (Mucomyst) 600 mg Q4HRT N 12/28/18 11:00 01/27/19 10:59 12/28/18 14:57 Chlorhexidine Gluconate ([place]entina-Hex 2%) 1 applic DAILY@2000 TOPIC 12/22/18 20:00 01/21/19 19:59 12/27/18 20:15 Clonidine HCl (Catapres Tab) 0.1 mg Q4H PRN GT SBP > 170mmHg 12/25/18 14:30 01/24/19 14:29 Dextrose 1,000 ml @ 40 mls/hr Q24H IV 12/27/18 12:00 01/26/19 11:59 12/28/18 13:27 Dextrose (Dextrose 50%) 25 ml Q30M PRN IV Hypoglycemia 12/20/18 19:00 01/19/19 18:59 12/26/18 09:31 Dextrose (Dextrose 50%) 50 ml Q30M PRN IV Hypoglycemia 12/20/18 19:00 01/19/19 18:59 Insulin Aspart (NovoLOG) Q6HR SUBQ 12/20/18 12:00 01/19/19 11:59 12/27/18 17:33 Insulin Detemir (Levemir) 6 units BID SUBQ 12/26/18 09:00 01/20/19 08:59 12/27/18 17:32 Ipratropium [place] (Atrovent) 500 mcg Q4HRT N 12/26/18 19:00 12/31/18 18:59 12/28/18 14:57 Lansoprazole (Prevacid) 30 mg BID GT 12/20/18 18:00 01/20/19 08:59 12/28/18 17:28 Lorazepam (Ativan 2mg/ml 1ml) 1 mg Q3H PRN IV For Anxiety 12/22/18 09:00 12/29/18 08:59 12/22/18 16:07 Norepinephrine Bitartrate 4 mg/ Dextrose 250 ml @ 0 mls/hr Q24H IV 12/20/18 07:00 01/19/19 06:59 12/20/18 18:25 Vancomycin HCl (Vanco rx to dose) 1 ea DAILY PRN MISC Per rx protocol 12/20/18 11:00 01/19/19 10:59 Vancomycin HCl 750 mg/Sodium Chloride 275 ml @ 183.333 mls/hr Q24H IVPB 12/26/18 18:00 12/31/18 17:59 12/28/18 17:28 Pablo Day MD Dec 28, 2018 18:15
--- NOTE | 2018-12-28 19:12 | General Progress Note ---
Assessment/Plan Problem List: (1) Anemia, chronic disease ICD Codes: D63.8 - Anemia in other chronic diseases classified elsewhere SNOMED: 224815924, 477665515 (2) Severe dehydration ICD Codes: E86.0 - Dehydration SNOMED: 158461088, 636261249 (3) Hyperglycemia due to type 2 diabetes mellitus ICD Codes: E11.65 - Type 2 diabetes mellitus with hyperglycemia SNOMED: 696040809385469, 59140621 Qualifiers: Qualified Codes: E11.65 - Type 2 diabetes mellitus with hyperglycemia; Z79.4 - longterm (current) use of insulin (4) Acute metabolic encephalopathy ICD Codes: G93.41 - Metabolic encephalopathy SNOMED: 62152078, 516155605 (5) Hypotension ICD Codes: I95.9 - Hypotension, unspecified SNOMED: 87993473 (6) ARF (acute renal failure) ICD Codes: N17.9 - Acute kidney failure, unspecified SNOMED: 37562159, 619355569 Qualifiers: Qualified Codes: N17.9 - Acute kidney failure, unspecified (7) Respiratory failure with hypoxia ICD Codes: J96.91 - Respiratory failure, unspecified with hypoxia SNOMED: 00959530458891505, 544936717 Qualifiers: Qualified Codes: J96.01 - Acute respiratory failure with hypoxia (8) Renal failure (ARF), acute on chronic ICD Codes: N17.9 - Acute kidney failure, unspecified; N18.9 - Chronic kidney disease, unspecified SNOMED: 740784071 (9) Anemia ICD Codes: D64.9 - Anemia, unspecified SNOMED: 215913671 Status: stable, progressing Assessment/Plan: s/p extubation sepsis pna improving abx per id no wheezing anemia improved sacral decub reviewed chart and labs Subjective ROS Limited/Unobtainable: Yes Allergies: Coded Allergies: ALLOPURINOL (Verified Allergy, Unknown, 12/20/18) Objective Last 24 Hour Vital Signs Date Time Temp Pulse Resp B/P (MAP) Pulse Ox O2 Delivery O2 Flow Rate FiO2 12/28/18 19:00 69 13 161/67 (98) 100 12/28/18 18:00 60 21 149/54 (85) 98 12/28/18 18:00 68 15 155/57 (89) 100 12/28/18 17:00 97.9 67 14 146/57 (86) 100 12/28/18 16:26 64 12/28/18 16:00 Room Air 12/28/18 16:00 60 21 149/54 (85) 98 12/28/18 15:00 62 17 153/74 (100) 100 12/28/18 14:58 64 16 100 Room Air 21 12/28/18 14:48 60 14 100 Room Air 21 12/28/18 14:00 70 15 147/55 (85) 98 12/28/18 13:00 69 18 149/51 (83) 95 12/28/18 12:25 61 12/28/18 12:00 98.1 65 17 154/56 (88) 100 12/28/18 12:00 Room Air 12/28/18 11:06 65 16 100 Room Air 21 12/28/18 11:00 67 18 144/56 (85) 100 12/28/18 10:50 67 20 100 Room Air 21 12/28/18 10:00 70 15 162/58 (92) 100 12/28/18 09:00 67 14 156/58 (90) 100 12/28/18 08:00 Nasal Cannula 2.0 12/28/18 08:00 2.0 12/28/18 08:00 97.9 63 19 152/59 (90) 99 12/28/18 07:54 63 12/28/18 07:20 56 16 100 Nasal Cannula 2.0 28 12/28/18 07:10 69 20 100 Nasal Cannula 2.0 28 12/28/18 07:00 64 14 156/56 (89) 100 12/28/18 06:00 60 17 148/56 (86) 100 12/28/18 05:01 63 18 133/56 (81) 100 12/28/18 05:00 2.0 12/28/18 04:51 65 23 100 Full Face 30 12/28/18 04:00 30.0 12/28/18 04:00 Nasal Cannula 2.0 12/28/18 04:00 97.8 54 17 138/51 (80) 100 12/28/18 04:00 63 12/28/18 03:29 61 17 100 Bi-Pap 30 12/28/18 03:20 56 15 100 Full Face 30 12/28/18 03:19 56 17 100 Bi-Pap 30 12/28/18 03:00 62 18 145/48 (80) 100 12/28/18 02:00 58 16 133/53 (79) 100 12/28/18 01:41 68 20 100 Full Face 30 12/28/18 01:00 67 20 128/66 (86) 100 12/28/18 00:00 30.0 12/28/18 00:00 98.8 62 21 107/58 (74) 100 12/28/18 00:00 Nasal Cannula 2.0 12/27/18 23:58 68 21 100 Nasal Cannula 2.0 28 12/27/18 23:46 68 17 100 Nasal Cannula 2.0 28 12/27/18 23:00 67 18 148/52 (84) 100 12/27/18 22:00 60 20 133/56 (81) 100 12/27/18 21:00 71 20 144/55 (84) 100 12/27/18 20:00 98.6 63 20 134/53 (80) 100 12/27/18 20:00 2.0 12/27/18 20:00 Nasal Cannula 2.0 12/27/18 20:00 63 12/27/18 19:44 67 18 100 Nasal Cannula 2.0 28 12/27/18 19:33 66 22 100 Nasal Cannula 2.0 28 Intake and Output 12/27/18 12/28/18 19:00 07:00 Intake Total 940.000 ml 520 ml Output Total 485 ml 960 ml Balance 455.000 ml -440 ml IV Total 940.000 ml 520 ml Tube Feeding 0 ml 0 ml Output Urine Total 485 ml 760 ml Stool Total 200 ml Other 0 ml Height (Feet): 5 Height (Inches): 6.00 Weight (Pounds): 216 Cardiovascular: normal rate Respiratory/Chest: lungs clear Abdomen: non tender Danial Walden MD Dec 28, 2018 19:12
[2018-12-28] MEDS: Dyna-Hex 2% Top Sol 2oz TOPIC SCH (20:08)
[2018-12-28] MEDS ORDERED: Acetaminophen 650mg/20.3ml GT PRN (21:00)
[2018-12-28] MEDS ORDERED: LORazepam Inj 2mg/ml 1ml IV PRN (21:00)
--- NOTE | 2018-12-29 00:32 | Pulmonolgy Critical Care Note ---
Critical Care - Asmt/Plan Assessment/Plan: Pulmonary CCM Progress Note - 08/30/2018 Assessment/Plan Respiratory failure, s/p extubation, CXR possible left effusion vs infiltrate sepsis hypotension sacral ulcer hypernatremia acute renal failure severe protein calorie malnutrition hypoxemia, severe hypercapnia possible pneumonia possible demand ischemia PLAN care noted an reviewed HHN/CPT, PRN BiPAP O2 sats 90-94% antibiotics and cultures noted and reviewed hydration with caution supportive care nutrition medications/laboratory data/nursing notes/ICU care reviewed in detail note reviewed and edited care discussed with RN and RT ICU time spent 40 minutes Critical Care - Subjective Interval Events: care noted on oxygen ROS Limited/Unobtainable: Yes Condition: critical EKG Rhythm: Sinus Rhythm Critical Care - Objective ET-Tube: 7.5 ET Position: 23 Vital Signs Noted Objective: Sp02 EP Interpretation: reviewed, normal General Appearance: normal inspection, well appearing, no apparent distress, sedated Head: normocephalic, atraumatic Eyes: bilateral eye normal inspection ENT: oral ETT Neck: normal inspection, full range of motion, supple, no meningismus, carotid 2+ Respiratory: decreased breath sounds, moderate breath sounds with some rhonchi left Cardiovascular #1: regular rhythm, no murmur without MRG; Gastrointestinal: non tender, soft, non-distended, no guarding, no rebound Musculoskeletal: no CCE Neurologic: sedated reviewed and edited Micro: Microbiology Date/Time Source Procedure Growth Status 12/21/18 13:30 Blood Blood Culture - Preliminary NO GROWTH Resulted Seen earlier 12/28/2018 Critical Care - Objective Last 24 Hour Vital Signs Date Time Temp Pulse Resp B/P (MAP) Pulse Ox O2 Delivery O2 Flow Rate FiO2 12/29/18 00:00 Room Air 12/28/18 23:41 98.2 69 18 140/65 (90) 98 12/28/18 23:29 98.2 69 18 140/65 (90) 98 12/28/18 23:13 77 18 99 Nasal Cannula 2.0 28 12/28/18 21:00 Room Air 12/28/18 20:00 67 12/28/18 20:00 98.0 67 13 164/67 (99) 100 12/28/18 20:00 Room Air 12/28/18 19:32 68 18 99 Room Air 21 12/28/18 19:18 71 18 98 Room Air 21 12/28/18 19:00 69 13 161/67 (98) 100 12/28/18 18:00 60 21 149/54 (85) 98 12/28/18 18:00 68 15 155/57 (89) 100 12/28/18 17:00 97.9 67 14 146/57 (86) 100 12/28/18 16:26 64 12/28/18 16:00 Room Air 12/28/18 16:00 60 21 149/54 (85) 98 12/28/18 15:00 62 17 153/74 (100) 100 12/28/18 14:58 64 16 100 Room Air 21 12/28/18 14:48 60 14 100 Room Air 21 12/28/18 14:00 70 15 147/55 (85) 98 12/28/18 13:00 69 18 149/51 (83) 95 12/28/18 12:25 61 12/28/18 12:00 98.1 65 17 154/56 (88) 100 12/28/18 12:00 Room Air 12/28/18 11:06 65 16 100 Room Air 21 12/28/18 11:00 67 18 144/56 (85) 100 12/28/18 10:50 67 20 100 Room Air 21 12/28/18 10:00 70 15 162/58 (92) 100 12/28/18 09:00 67 14 156/58 (90) 100 12/28/18 08:00 Nasal Cannula 2.0 12/28/18 08:00 2.0 12/28/18 08:00 97.9 63 19 152/59 (90) 99 12/28/18 07:54 63 12/28/18 07:20 56 16 100 Nasal Cannula 2.0 28 12/28/18 07:10 69 20 100 Nasal Cannula 2.0 28 12/28/18 07:00 64 14 156/56 (89) 100 12/28/18 06:00 60 17 148/56 (86) 100 12/28/18 05:01 63 18 133/56 (81) 100 12/28/18 05:00 2.0 12/28/18 04:51 65 23 100 Full Face 30 12/28/18 04:00 30.0 12/28/18 04:00 Nasal Cannula 2.0 12/28/18 04:00 97.8 54 17 138/51 (80) 100 12/28/18 04:00 63 12/28/18 03:29 61 17 100 Bi-Pap 30 12/28/18 03:20 56 15 100 Full Face 30 12/28/18 03:19 56 17 100 Bi-Pap 30 12/28/18 03:00 62 18 145/48 (80) 100 12/28/18 02:00 58 16 133/53 (79) 100 12/28/18 01:41 68 20 100 Full Face 30 12/28/18 01:00 67 20 128/66 (86) 100 Accucheck: 107 Critical Care - Subjective ROS Limited/Unobtainable: No FI02: 28 Vent Support Breath Rate: 15 Vent Support Mode: CPAP Vent Tidal Volume: 500 Sputum Amount: None PEEP: 5.0 PIP: 26 Tube Feeding Amount: 30 I&O: Intake and Output 12/28/18 12/29/18 19:00 07:00 Intake Total 1005.000 ml 30 ml Output Total 695 ml 50 ml Balance 310.000 ml -20 ml IV Total 755.000 ml Tube Feeding 150 ml 30 ml Other 100 ml Output Urine Total 585 ml 50 ml Stool Total 110 ml ET-Tube: 7.5 ET Position: 23 Minh Dunbar MD Dec 29, 2018 00:32
[2018-12-29] MEDS: Ipratropium 0.02% Inh Soln 2.5ml UD HHN SCH ×6 (02:54→19:00)
[2018-12-29] MEDS: Acetylcysteine 20% Soln 4ml HHN SCH ×6 (02:54→19:00)
[2018-12-29] MEDS: NovoLOG Insulin Flexpen SUBQ SCH ×3 (05:49→18:00)
[2018-12-29 05:55] LABS: BASOPHILS % (AUTO) 0.4 % (0.0-2.0); EOSINOPHILS % (AUTO) 2.4 % (0.0-3.0); HEMATOCRIT 26.3 % (37.0-47.0); HEMOGLOBIN 8.4 G/DL (12.0-16.0); LYMPHOCYTES % (AUTO) 30.9 % (20.0-45.0); MEAN CORPUSCULAR VOLUME 84 FL (80-99); MONOCYTES % (AUTO) 3.3 % (1.0-10.0); NEUTROPHILS % (AUTO) 62.9 % (45.0-75.0); PLATELET COUNT 323 K/UL (150-450); RED BLOOD COUNT 3.14 M/UL (4.20-5.40); RED CELL DISTRIBUTION WIDTH 14.9 % (11.6-14.8); WHITE BLOOD COUNT 7.3 K/UL (4.8-10.8)
[2018-12-29] MEDS ORDERED: Tubing IV Secondary IV ONE (06:14)
[2018-12-29 06:23] LABS: ALANINE AMINOTRANSFERASE 9 U/L (12-78); ALBUMIN 1.3 G/DL (3.4-5.0); ALBUMIN/GLOBULIN RATIO 0.2 (1.0-2.7); ALKALINE PHOSPHATASE 59 U/L (46-116); ANION GAP 6 mmol/L (5-15); ASPARTATE AMINO TRANSFERASE 13 U/L (15-37); BILIRUBIN,TOTAL 0.2 MG/DL (0.2-1.0); BLOOD UREA NITROGEN 13 mg/dL (7-18); CALCIUM 8.4 MG/DL (8.5-10.1); CARBON DIOXIDE 26 MMOL/L (21-32); CHLORIDE 106 MMOL/L (98-107); CREATININE 0.9 MG/DL (0.55-1.30); PHOSPHORUS 3.3 MG/DL (2.5-4.9); POTASSIUM 3.6 MMOL/L (3.5-5.1); SODIUM 138 MMOL/L (136-145)
[2018-12-29 06:25] VITALS: BP 139/82
--- NOTE | 2018-12-29 06:33 | General Progress Note ---
Assessment/Plan Problem List: (1) Sepsis ICD Codes: A41.9 - Sepsis, unspecified organism SNOMED: 08617145, 485549465 Qualifiers: Qualified Codes: A41.9 - Sepsis, unspecified organism (2) HCAP (healthcare-associated pneumonia) ICD Codes: J18.9 - Pneumonia, unspecified organism SNOMED: 862013183, 370725521 (3) Sacral decubitus ulcer, stage IV ICD Codes: L89.154 - Pressure ulcer of sacral region, stage 4 SNOMED: 900854038, 542979673 (4) Hyperglycemia due to type 2 diabetes mellitus ICD Codes: E11.65 - Type 2 diabetes mellitus with hyperglycemia SNOMED: 673523923153535, 97609594 Qualifiers: Qualified Codes: E11.65 - Type 2 diabetes mellitus with hyperglycemia; Z79.4 - alf (current) use of insulin (5) Acute metabolic encephalopathy ICD Codes: G93.41 - Metabolic encephalopathy SNOMED: 70593544, 612759061 (6) ARF (acute renal failure) ICD Codes: N17.9 - Acute kidney failure, unspecified SNOMED: 92220078, 153740369 Qualifiers: Qualified Codes: N17.9 - Acute kidney failure, unspecified (7) Respiratory failure with hypoxia ICD Codes: J96.91 - Respiratory failure, unspecified with hypoxia SNOMED: 12601124303357716, 000609759 Qualifiers: Qualified Codes: J96.01 - Acute respiratory failure with hypoxia Status: stable, progressing Assessment/Plan: no need for basal inulin for now continue NISS every 6 hours Subjective ROS Limited/Unobtainable: Yes Allergies: Coded Allergies: ALLOPURINOL (Verified Allergy, Unknown, 12/20/18) Subjective events noted transferred out of ICU Item Value Date Time Bedside Blood Glucose 139 mg/dl H 12/29/18 0549 Bedside Blood Glucose 107 mg/dl 12/28/18 2346 Bedside Blood Glucose 97 mg/dl 12/28/18 1729 Bedside Blood Glucose 88 mg/dl 12/28/18 1129 Bedside Blood Glucose 90 mg/dl 12/28/18 0906 Objective Last 24 Hour Vital Signs Date Time Temp Pulse Resp B/P (MAP) Pulse Ox O2 Delivery O2 Flow Rate FiO2 12/29/18 04:00 72 12/29/18 03:47 60 18 99 Room Air 21 12/29/18 03:35 71 18 97 Room Air 21 12/29/18 00:00 Room Air 12/29/18 00:00 69 12/28/18 23:41 98.2 69 18 140/65 (90) 98 12/28/18 23:29 98.2 69 18 140/65 (90) 98 12/28/18 23:27 65 18 100 Room Air 21 12/28/18 23:13 77 18 99 Nasal Cannula 2.0 28 12/28/18 21:00 Room Air 12/28/18 20:00 67 12/28/18 20:00 98.0 67 13 164/67 (99) 100 12/28/18 20:00 Room Air 12/28/18 19:32 68 18 99 Room Air 21 12/28/18 19:18 71 18 98 Room Air 21 12/28/18 19:00 69 13 161/67 (98) 100 12/28/18 18:00 60 21 149/54 (85) 98 12/28/18 18:00 68 15 155/57 (89) 100 12/28/18 17:00 97.9 67 14 146/57 (86) 100 12/28/18 16:26 64 12/28/18 16:00 Room Air 12/28/18 16:00 60 21 149/54 (85) 98 12/28/18 15:00 62 17 153/74 (100) 100 12/28/18 14:58 64 16 100 Room Air 21 12/28/18 14:48 60 14 100 Room Air 21 12/28/18 14:00 70 15 147/55 (85) 98 12/28/18 13:00 69 18 149/51 (83) 95 12/28/18 12:25 61 12/28/18 12:00 98.1 65 17 154/56 (88) 100 12/28/18 12:00 Room Air 12/28/18 11:06 65 16 100 Room Air 21 12/28/18 11:00 67 18 144/56 (85) 100 12/28/18 10:50 67 20 100 Room Air 21 12/28/18 10:00 70 15 162/58 (92) 100 12/28/18 09:00 67 14 156/58 (90) 100 12/28/18 08:00 Nasal Cannula 2.0 12/28/18 08:00 2.0 12/28/18 08:00 97.9 63 19 152/59 (90) 99 12/28/18 07:54 63 12/28/18 07:20 56 16 100 Nasal Cannula 2.0 28 12/28/18 07:10 69 20 100 Nasal Cannula 2.0 28 12/28/18 07:00 64 14 156/56 (89) 100 Intake and Output 12/28/18 12/29/18 19:00 07:00 Intake Total 1005.000 ml 30 ml Output Total 695 ml 50 ml Balance 310.000 ml -20 ml IV Total 755.000 ml Tube Feeding 150 ml 30 ml Other 100 ml Output Urine Total 585 ml 50 ml Stool Total 110 ml Laboratory Tests 12/29/18 05:15: White Blood Count 7.3, Red Blood Count 3.14L, Hemoglobin 8.4L, Hematocrit 26.3L , Mean Corpuscular Volume 84, Mean Corpuscular Hemoglobin 26.8L, Mean Corpuscular Hemoglobin Concent 32.0, Red Cell Distribution Width 14.9H, Platelet Count 323, Mean Platelet Volume 6.8, Neutrophils (%) (Auto) 62.9, Lymphocytes (%) (Auto) 30.9, Monocytes (%) (Auto) 3.3, Eosinophils (%) (Auto) 2.4, Basophils (%) (Auto) 0.4, Sodium Level [Pending], Potassium Level [Pending] , Chloride Level [Pending], Carbon Dioxide Level [Pending], Blood Urea Nitrogen [Pending], Creatinine [Pending], Estimat Glomerular Filtration Rate [Pending], Glucose Level [Pending], Calcium Level [Pending], Phosphorus Level [Pending], Magnesium Level [Pending], Total Bilirubin [Pending], Aspartate Amino Transf ( AST/SGOT) [Pending], Alanine Aminotransferase (ALT/SGPT) [Pending], Alkaline Phosphatase [Pending], Total Protein [Pending], Albumin [Pending], Globulin [ Pending] Height (Feet): 5 Height (Inches): 6.00 Weight (Pounds): 216 General Appearance: no apparent distress Neck: normal alignment Cardiovascular: normal rate Respiratory/Chest: decreased breath sounds Abdomen: normal bowel sounds Pelvis: normal external exam Objective Current Medications Medications (Trade) Dose Ordered Sig/Nora Route PRN Reason Start Time Stop Time Status Last Admin Dose Admin Acetaminophen (Tylenol) 650 mg Q4H PRN GT Mild Pain/Temp > 100.5 12/28/18 21:00 01/25/19 20:59 12/29/18 03:27 Acetylcysteine (Mucomyst) 600 mg Q4HRT HHN 12/28/18 23:00 01/27/19 10:59 12/29/18 03:35 Chlorhexidine Gluconate (Valentina-Hex 2%) 1 applic DAILY@2000 TOPIC 12/29/18 20:00 01/21/19 19:59 Clonidine HCl (Catapres Tab) 0.1 mg Q4H PRN GT SBP > 170mmHg 12/28/18 21:00 01/24/19 20:59 Dextrose 1,000 ml @ 40 mls/hr Q24H IV 12/28/18 20:45 01/26/19 11:59 Dextrose (Dextrose 50%) 25 ml Q30M PRN IV Hypoglycemia 12/28/18 21:00 01/19/19 18:59 Dextrose (Dextrose 50%) 50 ml Q30M PRN IV Hypoglycemia 12/28/18 21:00 01/19/19 18:59 Insulin Aspart (NovoLOG) Q6HR SUBQ 12/29/18 00:00 01/19/19 11:59 12/29/18 05:49 Ipratropium [place] (Atrovent) 500 mcg Q4HRT HHN 12/28/18 23:00 12/31/18 18:59 12/29/18 03:35 Lansoprazole (Prevacid) 30 mg BID GT 12/29/18 09:00 01/20/19 08:59 Lorazepam (Ativan 2mg/ml 1ml) 1 mg Q3H PRN IV For Anxiety 12/28/18 21:00 12/29/18 08:59 Vancomycin HCl (Vanco rx to dose) 1 ea DAILY PRN MISC Per rx protocol 12/29/18 09:00 01/19/19 10:59 Vancomycin HCl 750 mg/Sodium Chloride 275 ml @ 183.333 mls/hr Q24H IVPB 12/29/18 18:00 12/31/18 17:59 Pablo Day MD Dec 29, 2018 06:33
[2018-12-29 08:00] VITALS: BP 143/63
--- NOTE | 2018-12-29 09:56 | Nephrology Progress Note ---
Assessment/Plan Problem List: (1) Renal failure (ARF), acute on chronic (2) Sepsis (3) Severe dehydration (4) Hyperglycemia due to type 2 diabetes mellitus (5) Hypotension (6) Respiratory failure with hypoxia (7) Anemia (8) PEG (percutaneous endoscopic gastrostomy) status (9) Colostomy status Assessment Acute renal failure- Multifactorial, Pre Renal on Renal DM OOC Respiratory failure, acute- on Vent in ICU sepsis / Shock sacral ulcer hypernatremia due to water deficit severe protein calorie malnutrition and hypoalbuminemia hypoxemia, severe PEG COlostomy Severe Anemia underlying Plan extubated doing well fluids- k , Phos , Mag supplement as needed water via GT antibiotics pressors pulm support 1.5 Units PRBCs transfused 12/20 feeding monitor renal parameters Subjective ROS Limited/Unobtainable: No Constitutional: Reports: malaise, weakness Objective Objective Last 24 Hour Vital Signs Date Time Temp Pulse Resp B/P (MAP) Pulse Ox O2 Delivery O2 Flow Rate FiO2 12/29/18 09:50 Room Air 12/29/18 08:00 98.2 68 20 143/63 (89) 97 12/29/18 07:54 74 18 99 Room Air 12/29/18 07:42 81 18 96 Room Air 12/29/18 07:40 66 12/29/18 06:25 98.2 76 20 139/82 (101) 98 12/29/18 04:00 72 12/29/18 03:47 60 18 99 Room Air 12/29/18 03:35 71 18 97 Room Air 12/29/18 00:00 Room Air 12/29/18 00:00 69 12/28/18 23:41 98.2 69 18 140/65 (90) 98 12/28/18 23:29 98.2 69 18 140/65 (90) 98 12/28/18 23:27 65 18 100 Room Air 12/28/18 23:13 77 18 99 Nasal Cannula 2.0 28 12/28/18 21:00 Room Air 12/28/18 20:00 67 12/28/18 20:00 98.0 67 13 164/67 (99) 100 12/28/18 20:00 Room Air 12/28/18 19:32 68 18 99 Room Air 12/28/18 19:18 71 18 98 Room Air 12/28/18 19:00 69 13 161/67 (98) 100 12/28/18 18:00 60 21 149/54 (85) 98 12/28/18 18:00 68 15 155/57 (89) 100 12/28/18 17:00 97.9 67 14 146/57 (86) 100 12/28/18 16:26 64 12/28/18 16:00 Room Air 12/28/18 16:00 60 21 149/54 (85) 98 12/28/18 15:00 62 17 153/74 (100) 100 12/28/18 14:58 64 16 100 Room Air 21 12/28/18 14:48 60 14 100 Room Air 21 12/28/18 14:00 70 15 147/55 (85) 98 12/28/18 13:00 69 18 149/51 (83) 95 12/28/18 12:25 61 12/28/18 12:00 98.1 65 17 154/56 (88) 100 12/28/18 12:00 Room Air 12/28/18 11:06 65 16 100 Room Air 21 12/28/18 11:00 67 18 144/56 (85) 100 12/28/18 10:50 67 20 100 Room Air 21 12/28/18 10:00 70 15 162/58 (92) 100 Intake and Output 12/28/18 12/29/18 19:00 07:00 Intake Total 1005.000 ml 360 ml Output Total 695 ml 1250 ml Balance 310.000 ml -890 ml IV Total 755.000 ml Tube Feeding 150 ml 360 ml Other 100 ml Output Urine Total 585 ml 850 ml Stool Total 110 ml 400 ml Laboratory Tests 12/29/18 05:15: White Blood Count 7.3, Red Blood Count 3.14L, Hemoglobin 8.4L, Hematocrit 26.3L , Mean Corpuscular Volume 84, Mean Corpuscular Hemoglobin 26.8L, Mean Corpuscular Hemoglobin Concent 32.0, Red Cell Distribution Width 14.9H, Platelet Count 323, Mean Platelet Volume 6.8, Neutrophils (%) (Auto) 62.9, Lymphocytes (%) (Auto) 30.9, Monocytes (%) (Auto) 3.3, Eosinophils (%) (Auto) 2.4, Basophils (%) (Auto) 0.4, Sodium Level 138, Potassium Level 3.6, Chloride Level 106, Carbon Dioxide Level 26, Anion Gap 6, Blood Urea Nitrogen 13, Creatinine 0.9, Estimat Glomerular Filtration Rate , Glucose Level 139H, Calcium Level 8.4L, Phosphorus Level 3.3, Magnesium Level 1.8, Total Bilirubin 0.2, Aspartate Amino Transf (AST/SGOT) 13L, Alanine Aminotransferase (ALT/SGPT) 9L, Alkaline Phosphatase 59, Total Protein 6.8, Albumin 1.3L, Globulin 5.5, Albumin/Globulin Ratio 0.2L Height (Feet): 5 Height (Inches): 6.00 Weight (Pounds): 213 General Appearance: no apparent distress Cardiovascular: normal rate Respiratory/Chest: decreased breath sounds Abdomen: soft Objective no change Servando Cifuentes MD Dec 29, 2018 09:56
--- NOTE | 2018-12-29 11:32 | Surgery Progress Note ---
Surgery Progress Note Subjective Additional Comments afebrile, HD stable labs improved exam stable Objective Last 24 Hour Vital Signs Date Time Temp Pulse Resp B/P (MAP) Pulse Ox O2 Delivery O2 Flow Rate FiO2 12/29/18 09:50 Room Air 12/29/18 08:00 98.2 68 20 143/63 (89) 97 12/29/18 07:54 74 18 99 Room Air 21 12/29/18 07:42 81 18 96 Room Air 21 12/29/18 07:40 66 12/29/18 06:25 98.2 76 20 139/82 (101) 98 12/29/18 04:00 72 12/29/18 03:47 60 18 99 Room Air 12/29/18 03:35 71 18 97 Room Air 12/29/18 00:00 Room Air 12/29/18 00:00 69 12/28/18 23:41 98.2 69 18 140/65 (90) 98 12/28/18 23:29 98.2 69 18 140/65 (90) 98 12/28/18 23:27 65 18 100 Room Air 12/28/18 23:13 77 18 99 Nasal Cannula 2.0 28 12/28/18 21:00 Room Air 12/28/18 20:00 67 12/28/18 20:00 98.0 67 13 164/67 (99) 100 12/28/18 20:00 Room Air 12/28/18 19:32 68 18 99 Room Air 12/28/18 19:18 71 18 98 Room Air 12/28/18 19:00 69 13 161/67 (98) 100 12/28/18 18:00 60 21 149/54 (85) 98 12/28/18 18:00 68 15 155/57 (89) 100 12/28/18 17:00 97.9 67 14 146/57 (86) 100 12/28/18 16:26 64 12/28/18 16:00 Room Air 12/28/18 16:00 60 21 149/54 (85) 98 12/28/18 15:00 62 17 153/74 (100) 100 12/28/18 14:58 64 16 100 Room Air 12/28/18 14:48 60 14 100 Room Air 21 12/28/18 14:00 70 15 147/55 (85) 98 12/28/18 13:00 69 18 149/51 (83) 95 12/28/18 12:25 61 12/28/18 12:00 98.1 65 17 154/56 (88) 100 12/28/18 12:00 Room Air I&O Intake and Output 12/28/18 12/29/18 18:59 06:59 Intake Total 883.333 ml 491.667 ml Output Total 785 ml 860 ml Balance 98.333 ml -368.333 ml IV Total 663.333 ml 131.667 ml Tube Feeding 120 ml 360 ml Other 100 ml Output Urine Total 675 ml 860 ml Stool Total 110 ml Dressing: saturated Wound: other Drains: other Cardiovascular: RSR Respiratory: decreased breath sounds Abdomen: soft, present bowel sounds, non-distended Extremities: no cyanosis Laboratory Tests Test 12/29/18 05:15 White Blood Count 7.3 K/UL (4.8-10.8) Red Blood Count 3.14 M/UL (4.20-5.40) L Hemoglobin 8.4 G/DL (12.0-16.0) L Hematocrit 26.3 % (37.0-47.0) L Mean Corpuscular Volume 84 FL (80-99) Mean Corpuscular Hemoglobin 26.8 PG (27.0-31.0) L Mean Corpuscular Hemoglobin Concent 32.0 G/DL (32.0-36.0) Red Cell Distribution Width 14.9 % (11.6-14.8) H Platelet Count 323 K/UL (150-450) Mean Platelet Volume 6.8 FL (6.5-10.1) Neutrophils (%) (Auto) 62.9 % (45.0-75.0) Lymphocytes (%) (Auto) 30.9 % (20.0-45.0) Monocytes (%) (Auto) 3.3 % (1.0-10.0) Eosinophils (%) (Auto) 2.4 % (0.0-3.0) Basophils (%) (Auto) 0.4 % (0.0-2.0) Sodium Level 138 MMOL/L (136-145) Potassium Level 3.6 MMOL/L (3.5-5.1) Chloride Level 106 MMOL/L (98-107) Carbon Dioxide Level 26 MMOL/L (21-32) Anion Gap 6 mmol/L (5-15) Blood Urea Nitrogen 13 mg/dL (7-18) Creatinine 0.9 MG/DL (0.55-1.30) Estimat Glomerular Filtration Rate mL/min (>60) Glucose Level 139 MG/DL (74-106) H Calcium Level 8.4 MG/DL (8.5-10.1) L Phosphorus Level 3.3 MG/DL (2.5-4.9) Magnesium Level 1.8 MG/DL (1.8-2.4) Total Bilirubin 0.2 MG/DL (0.2-1.0) Aspartate Amino Transf (AST/SGOT) 13 U/L (15-37) L Alanine Aminotransferase (ALT/SGPT) 9 U/L (12-78) L Alkaline Phosphatase 59 U/L (46-116) Total Protein 6.8 G/DL (6.4-8.2) Albumin 1.3 G/DL (3.4-5.0) L Globulin 5.5 g/dL Albumin/Globulin Ratio 0.2 (1.0-2.7) L Plan Problems: (1) Sepsis Assessment & Plan: Cont IV abx as per ID trend labs which had improved cont with current care (2) Severe dehydration (3) Anemia, chronic disease (4) HCAP (healthcare-associated pneumonia) (5) Sacral decubitus ulcer, stage IV Assessment & Plan: Pt presented on admission with full thickness Sacral Pressure Injury with undermining. Bone is palpable. Base of has beefy red granulation with scattered small purple areas. No odor noted .Scant serous exudate noted . Edges pink and flat. (L)13cm x (W)14cm x (D)5.6cm,[id number] by 4cm @11o'clock. DTPI noted to lateral R foot. .Base of wound purple and fluctuant in center with surrounding maroon discoloration (L)1.5cm x (W)1cm. Non-blanchable erythema with fluctuance noted to posterior and medial R heel. L heel boggy but blanchable. Tx.Plan: Cleanse Sacral wound with Saline. Loosely pack with Hydrogel Impregnated Kerlix. Cover with ABD pads and secure with Paper Tape or Tegaderm Daily and prn. Apply Cavilon Skin Barrier to R and Heel and lateral R heel. Ciover with Optifoam drsg. Change every 7 days and PRN. Apply Cavilon Skin Barrier to L heel. Cover with Optifoam drsg. Change every 7 days and prn. APM/VIJI Mattress Overlay. Reposition at least every 2hours or as tolerated. Off-load heels with Pillow. VAC therapy (6) Hyperglycemia due to type 2 diabetes mellitus (7) Acute metabolic encephalopathy (8) Hypotension (9) ARF (acute renal failure) (10) Respiratory failure with hypoxia Mauro Morrow Dec 29, 2018 11:32
--- NOTE | 2018-12-29 11:51 | General Progress Note ---
Assessment/Plan Problem List: (1) Colostomy status ICD Codes: Z93.3 - Colostomy status SNOMED: 63348441, 454922797, 989903661 (2) PEG (percutaneous endoscopic gastrostomy) status ICD Codes: Z93.1 - Gastrostomy status SNOMED: 034827251, 903785040 (3) Anemia ICD Codes: D64.9 - Anemia, unspecified SNOMED: 483501428 (4) Respiratory failure with hypoxia ICD Codes: J96.91 - Respiratory failure, unspecified with hypoxia SNOMED: 25283566426042486, 168542905 Qualifiers: Qualified Codes: J96.01 - Acute respiratory failure with hypoxia Status: stable, progressing Assessment/Plan: respiratory failure>>> now extubated sepsis ARF G Tube dependent colostomy dependent GTF monitor H&H, prn transfusions bowel regimen ppi electrolyte correction fu labs GI procedures only if emergent Subjective ROS Limited/Unobtainable: No Allergies: Coded Allergies: ALLOPURINOL (Verified Allergy, Unknown, 12/20/18) Objective Last 24 Hour Vital Signs Date Time Temp Pulse Resp B/P (MAP) Pulse Ox O2 Delivery O2 Flow Rate FiO2 12/29/18 09:50 Room Air 12/29/18 08:00 98.2 68 20 143/63 (89) 97 12/29/18 07:54 74 18 99 Room Air 12/29/18 07:42 81 18 96 Room Air 12/29/18 07:40 66 12/29/18 06:25 98.2 76 20 139/82 (101) 98 12/29/18 04:00 72 12/29/18 03:47 60 18 99 Room Air 12/29/18 03:35 71 18 97 Room Air 12/29/18 00:00 Room Air 12/29/18 00:00 69 12/28/18 23:41 98.2 69 18 140/65 (90) 98 12/28/18 23:29 98.2 69 18 140/65 (90) 98 12/28/18 23:27 65 18 100 Room Air 12/28/18 23:13 77 18 99 Nasal Cannula 2.0 28 12/28/18 21:00 Room Air 12/28/18 20:00 67 12/28/18 20:00 98.0 67 13 164/67 (99) 100 12/28/18 20:00 Room Air 12/28/18 19:32 68 18 99 Room Air 21 12/28/18 19:18 71 18 98 Room Air 21 12/28/18 19:00 69 13 161/67 (98) 100 12/28/18 18:00 60 21 149/54 (85) 98 12/28/18 18:00 68 15 155/57 (89) 100 12/28/18 17:00 97.9 67 14 146/57 (86) 100 12/28/18 16:26 64 12/28/18 16:00 Room Air 12/28/18 16:00 60 21 149/54 (85) 98 12/28/18 15:00 62 17 153/74 (100) 100 12/28/18 14:58 64 16 100 Room Air 21 12/28/18 14:48 60 14 100 Room Air 21 12/28/18 14:00 70 15 147/55 (85) 98 12/28/18 13:00 69 18 149/51 (83) 95 12/28/18 12:25 61 12/28/18 12:00 98.1 65 17 154/56 (88) 100 12/28/18 12:00 Room Air Intake and Output 12/28/18 12/29/18 18:59 06:59 Intake Total 883.333 ml 491.667 ml Output Total 785 ml 860 ml Balance 98.333 ml -368.333 ml IV Total 663.333 ml 131.667 ml Tube Feeding 120 ml 360 ml Other 100 ml Output Urine Total 675 ml 860 ml Stool Total 110 ml Laboratory Tests 12/29/18 05:15: White Blood Count 7.3, Red Blood Count 3.14L, Hemoglobin 8.4L, Hematocrit 26.3L , Mean Corpuscular Volume 84, Mean Corpuscular Hemoglobin 26.8L, Mean Corpuscular Hemoglobin Concent 32.0, Red Cell Distribution Width 14.9H, Platelet Count 323, Mean Platelet Volume 6.8, Neutrophils (%) (Auto) 62.9, Lymphocytes (%) (Auto) 30.9, Monocytes (%) (Auto) 3.3, Eosinophils (%) (Auto) 2.4, Basophils (%) (Auto) 0.4, Sodium Level 138, Potassium Level 3.6, Chloride Level 106, Carbon Dioxide Level 26, Anion Gap 6, Blood Urea Nitrogen 13, Creatinine 0.9, Estimat Glomerular Filtration Rate , Glucose Level 139H, Calcium Level 8.4L, Phosphorus Level 3.3, Magnesium Level 1.8, Total Bilirubin 0.2, Aspartate Amino Transf (AST/SGOT) 13L, Alanine Aminotransferase (ALT/SGPT) 9L, Alkaline Phosphatase 59, Total Protein 6.8, Albumin 1.3L, Globulin 5.5, Albumin/Globulin Ratio 0.2L Height (Feet): 5 Height (Inches): 6.00 Weight (Pounds): 213 General Appearance: lethargic EENT: normal ENT inspection Neck: supple Cardiovascular: normal rate Respiratory/Chest: decreased breath sounds Abdomen: normal bowel sounds, non tender, soft Extremities: non-tender Horacio Vora MD Dec 29, 2018 11:51
[2018-12-29 12:05] VITALS: BP 150/75
--- NOTE | 2018-12-29 12:05 | Cardiac Electrophysiology PN ---
Assessment/Plan Assessment/Plan 1. S/P septic and hypovolemic shock in view of high lactic acid of 7.5 as well as severe dehydration. The patient has received 5 liters of normal saline. Off pressors. EF 50 to 55 percent. 2. Troponin leak due to renal failure. EKG no acute ST-T wave abnormality and shows sinus tachycardia of 102 with only left atrial enlargement. 3. S/P Respiratory failure. Extubated 12/27/18 4. Transient bradycardia. No further 5. Status post colostomy bag. 6. Severe dehydration with renal failure and hypernatremia. On IV fluids per Dr. Cifuentes. 7. Stage IV sacral decubitus ulcer. 8. Anemia of chronic disease. S/p PRBC . 9. Dysphagia, status post PEG placement. [place] RN DC to SN today Subjective Subjective Transferred to Tele. No CP. DC planning in progress Objective Last 24 Hour Vital Signs Date Time Temp Pulse Resp B/P (MAP) Pulse Ox O2 Delivery O2 Flow Rate FiO2 12/29/18 09:50 Room Air 12/29/18 08:00 98.2 68 20 143/63 (89) 97 12/29/18 07:54 74 18 99 Room Air 12/29/18 07:42 81 18 96 Room Air 12/29/18 07:40 66 12/29/18 06:25 98.2 76 20 139/82 (101) 98 12/29/18 04:00 72 12/29/18 03:47 60 18 99 Room Air 12/29/18 03:35 71 18 97 Room Air 12/29/18 00:00 Room Air 12/29/18 00:00 69 12/28/18 23:41 98.2 69 18 140/65 (90) 98 12/28/18 23:29 98.2 69 18 140/65 (90) 98 12/28/18 23:27 65 18 100 Room Air 12/28/18 23:13 77 18 99 Nasal Cannula 2.0 28 12/28/18 21:00 Room Air 12/28/18 20:00 67 12/28/18 20:00 98.0 67 13 164/67 (99) 100 12/28/18 20:00 Room Air 12/28/18 19:32 68 18 99 Room Air 12/28/18 19:18 71 18 98 Room Air 21 12/28/18 19:00 69 13 161/67 (98) 100 12/28/18 18:00 60 21 149/54 (85) 98 12/28/18 18:00 68 15 155/57 (89) 100 12/28/18 17:00 97.9 67 14 146/57 (86) 100 12/28/18 16:26 64 12/28/18 16:00 Room Air 12/28/18 16:00 60 21 149/54 (85) 98 12/28/18 15:00 62 17 153/74 (100) 100 12/28/18 14:58 64 16 100 Room Air 21 12/28/18 14:48 60 14 100 Room Air 21 12/28/18 14:00 70 15 147/55 (85) 98 12/28/18 13:00 69 18 149/51 (83) 95 12/28/18 12:25 61 Intake and Output 12/28/18 12/29/18 18:59 06:59 Intake Total 883.333 ml 491.667 ml Output Total 785 ml 860 ml Balance 98.333 ml -368.333 ml IV Total 663.333 ml 131.667 ml Tube Feeding 120 ml 360 ml Other 100 ml Output Urine Total 675 ml 860 ml Stool Total 110 ml Laboratory Tests Test 12/29/18 05:15 White Blood Count 7.3 K/UL (4.8-10.8) Red Blood Count 3.14 M/UL (4.20-5.40) L Hemoglobin 8.4 G/DL (12.0-16.0) L Hematocrit 26.3 % (37.0-47.0) L Mean Corpuscular Volume 84 FL (80-99) Mean Corpuscular Hemoglobin 26.8 PG (27.0-31.0) L Mean Corpuscular Hemoglobin Concent 32.0 G/DL (32.0-36.0) Red Cell Distribution Width 14.9 % (11.6-14.8) H Platelet Count 323 K/UL (150-450) Mean Platelet Volume 6.8 FL (6.5-10.1) Neutrophils (%) (Auto) 62.9 % (45.0-75.0) Lymphocytes (%) (Auto) 30.9 % (20.0-45.0) Monocytes (%) (Auto) 3.3 % (1.0-10.0) Eosinophils (%) (Auto) 2.4 % (0.0-3.0) Basophils (%) (Auto) 0.4 % (0.0-2.0) Sodium Level 138 MMOL/L (136-145) Potassium Level 3.6 MMOL/L (3.5-5.1) Chloride Level 106 MMOL/L (98-107) Carbon Dioxide Level 26 MMOL/L (21-32) Anion Gap 6 mmol/L (5-15) Blood Urea Nitrogen 13 mg/dL (7-18) Creatinine 0.9 MG/DL (0.55-1.30) Estimat Glomerular Filtration Rate mL/min (>60) Glucose Level 139 MG/DL (74-106) H Calcium Level 8.4 MG/DL (8.5-10.1) L Phosphorus Level 3.3 MG/DL (2.5-4.9) Magnesium Level 1.8 MG/DL (1.8-2.4) Total Bilirubin 0.2 MG/DL (0.2-1.0) Aspartate Amino Transf (AST/SGOT) 13 U/L (15-37) L Alanine Aminotransferase (ALT/SGPT) 9 U/L (12-78) L Alkaline Phosphatase 59 U/L (46-116) Total Protein 6.8 G/DL (6.4-8.2) Albumin 1.3 G/DL (3.4-5.0) L Globulin 5.5 g/dL Albumin/Globulin Ratio 0.2 (1.0-2.7) L Objective HEAD AND NECK: No JVD. LUNGS: Coarse rhonchi orally intubated. CARDIOVASCULAR:Tachycardic, S1, S2 with no gallop or murmur. ABDOMEN: Soft and nontender. EXTREMITIES: No pitting edema. G-tube and colostomy bag in place. Logan Singh MD Dec 29, 2018 12:05
--- NOTE | 2018-12-29 12:50 | Hematology/Onc Progress Note ---
Assessment/Plan Assessment/Plan Assessment and Recs: # Anemia of chronic disease due to underlying chronic medical issues, multifactorial, ferritin 366, tibc 144 --> Anemia workup has been reviewed, rule out gi bleed --> No evidence of hemolysis is noted, peripheral smear has been reviewed. --> Hgb goal >7. Transfuse prn. --> Epogen or iron at this time is not particularly indicated --> Medications have been reviewed --> low threshold for gi evaluation in case has occult + --> Hgb trend: 9.3-->9.5-->8.4 # Recanalized dvt of the right lower extremity --> given it has healed/recanalized, is not acute okay for just heparin prophylactic dosing --> continue heparin sq bid dosing # Leukocytosis/elevated white blood cell count, is due to underlying sepsis urine infection+ --> Currently resolved --> ID is following, appreciate recs --> have reviewed peripheral smear and bandemia/neutrophilia noted --> continue antibiotics per ID --> monitor for resolution --> trend 15-->24-->21k-->17.4-->11.2-->8.3-->7.3 # Respiratory failure with hypoxia --> Currently on room air 12/29 --> s/p vent placement intubated 12/20/18, --> pulm eval --> weaning from vent to cpap on 12/27 # Sacral decubitus ulcer, stage IV --> per surg # HCAP (healthcare-associated pneumonia) # ARF (acute renal failure) --> per renal # Hyperglycemia due to type 2 diabetes mellitus # Acute metabolic encephalopathy # Severe dehydration The timing of this note does not necessarily reflect the time of the patient was seen. GREATLY APPRECIATE CONSULTATION. Subjective Hematologic/Lymphatic: Reports: anemia Allergies: Coded Allergies: ALLOPURINOL (Verified Allergy, Unknown, 12/20/18) All Systems: reviewed and negative except above Subjective 12/21: no events, on abx, with pressor 12/22: Pt to start weaning off of vent. Remains on abx. CBC reviewed. 12/24: Pressor prn for HR <50. H/H stable. WBC improved. 12/26: Pt remains in ICU. Pt awake and responsive. Extubation cancelled per Dr Dunbar. 12/27: Pt remains in icu. CXR today shows development of a left basilar density which could be a left pleural effusion and/or infiltrate. Weaning from vent started with CPAP. 12/28: Pt is awake and able to answer for questions and follow simple commands. Sinus rhythm on site monitor. On N/C 2L. O2 sat 100%. No respiratory distress noted. 12/29: Pt resting in bed. No acute events. Hgb stable. DC planning. Objective Objective Current Medications Medications (Trade) Dose Ordered Sig/Nora Route PRN Reason Start Time Stop Time Status Last Admin Dose Admin Acetaminophen (Tylenol) 650 mg Q4H PRN GT Mild Pain/Temp > 100.5 12/28/18 21:00 01/25/19 20:59 12/29/18 03:27 Acetylcysteine (Mucomyst) 600 mg Q4HRT HHN 12/28/18 23:00 01/27/19 10:59 12/29/18 12:09 Chlorhexidine Gluconate (Valentina-Hex 2%) 1 applic DAILY@2000 TOPIC 12/29/18 20:00 01/21/19 19:59 Clonidine HCl (Catapres Tab) 0.1 mg Q4H PRN GT SBP > 170mmHg 12/28/18 21:00 01/24/19 20:59 Dextrose 1,000 ml @ 40 mls/hr Q24H IV 12/28/18 20:45 01/26/19 11:59 12/29/18 08:47 Dextrose (Dextrose 50%) 25 ml Q30M PRN IV Hypoglycemia 12/28/18 21:00 01/19/19 18:59 Dextrose (Dextrose 50%) 50 ml Q30M PRN IV Hypoglycemia 12/28/18 21:00 01/19/19 18:59 Insulin Aspart (NovoLOG) Q6HR SUBQ 12/29/18 00:00 01/19/19 11:59 12/29/18 11:52 Ipratropium [place] (Atrovent) 500 mcg Q4HRT HHN 12/28/18 23:00 12/31/18 18:59 12/29/18 12:09 Lansoprazole (Prevacid) 30 mg BID GT 12/29/18 09:00 01/20/19 08:59 12/29/18 08:47 Vancomycin HCl (Vanco rx to dose) 1 ea DAILY PRN MISC Per rx protocol 12/29/18 09:00 01/19/19 10:59 Vancomycin HCl 750 mg/Sodium Chloride 275 ml @ 183.333 mls/hr Q24H IVPB 12/29/18 18:00 12/31/18 17:59 Last 24 Hour Vital Signs Date Time Temp Pulse Resp B/P (MAP) Pulse Ox O2 Delivery O2 Flow Rate FiO2 12/29/18 12:25 75 18 99 Room Air 21 12/29/18 12:09 84 18 96 Room Air 21 12/29/18 12:05 98.2 73 20 150/75 (100) 97 12/29/18 09:50 Room Air 12/29/18 08:00 98.2 68 20 143/63 (89) 97 12/29/18 07:54 74 18 99 Room Air 12/29/18 07:42 81 18 96 Room Air 12/29/18 07:40 66 12/29/18 06:25 98.2 76 20 139/82 (101) 98 12/29/18 04:00 72 12/29/18 03:47 60 18 99 Room Air 12/29/18 03:35 71 18 97 Room Air 12/29/18 00:00 Room Air 12/29/18 00:00 69 12/28/18 23:41 98.2 69 18 140/65 (90) 98 12/28/18 23:29 98.2 69 18 140/65 (90) 98 12/28/18 23:27 65 18 100 Room Air 12/28/18 23:13 77 18 99 Nasal Cannula 2.0 28 12/28/18 21:00 Room Air 12/28/18 20:00 67 12/28/18 20:00 98.0 67 13 164/67 (99) 100 12/28/18 20:00 Room Air 12/28/18 19:32 68 18 99 Room Air 12/28/18 19:18 71 18 98 Room Air 21 12/28/18 19:00 69 13 161/67 (98) 100 12/28/18 18:00 60 21 149/54 (85) 98 12/28/18 18:00 68 15 155/57 (89) 100 12/28/18 17:00 97.9 67 14 146/57 (86) 100 12/28/18 16:26 64 12/28/18 16:00 Room Air 12/28/18 16:00 60 21 149/54 (85) 98 12/28/18 15:00 62 17 153/74 (100) 100 12/28/18 14:58 64 16 100 Room Air 21 12/28/18 14:48 60 14 100 Room Air 21 12/28/18 14:00 70 15 147/55 (85) 98 12/28/18 13:00 69 18 149/51 (83) 95 12/28/18 12:25 61 12/28/18 12:00 98.1 65 17 154/56 (88) 100 12/28/18 12:00 Room Air 12/28/18 11:06 65 16 100 Room Air 21 12/28/18 11:00 67 18 144/56 (85) 100 12/28/18 10:50 67 20 100 Room Air 21 12/28/18 10:00 70 15 162/58 (92) 100 12/28/18 09:00 67 14 156/58 (90) 100 12/28/18 08:00 Nasal Cannula 2.0 12/28/18 08:00 2.0 12/28/18 08:00 97.9 63 19 152/59 (90) 99 12/28/18 07:54 63 12/28/18 07:20 56 16 100 Nasal Cannula 2.0 28 12/28/18 07:10 69 20 100 Nasal Cannula 2.0 28 12/28/18 07:00 64 14 156/56 (89) 100 12/28/18 06:00 60 17 148/56 (86) 100 12/28/18 05:01 63 18 133/56 (81) 100 12/28/18 05:00 2.0 12/28/18 04:51 65 23 100 Full Face 30 12/28/18 04:00 30.0 12/28/18 04:00 Nasal Cannula 2.0 12/28/18 04:00 97.8 54 17 138/51 (80) 100 12/28/18 04:00 63 12/28/18 03:29 61 17 100 Bi-Pap 30 12/28/18 03:20 56 15 100 Full Face 30 12/28/18 03:19 56 17 100 Bi-Pap 30 12/28/18 03:00 62 18 145/48 (80) 100 12/28/18 02:00 58 16 133/53 (79) 100 12/28/18 01:41 68 20 100 Full Face 30 12/28/18 01:00 67 20 128/66 (86) 100 12/28/18 00:00 30.0 12/28/18 00:00 98.8 62 21 107/58 (74) 100 12/28/18 00:00 Nasal Cannula 2.0 12/27/18 23:58 68 21 100 Nasal Cannula 2.0 28 12/27/18 23:46 68 17 100 Nasal Cannula 2.0 28 12/27/18 23:00 67 18 148/52 (84) 100 12/27/18 22:00 60 20 133/56 (81) 100 12/27/18 21:00 71 20 144/55 (84) 100 12/27/18 20:00 98.6 63 20 134/53 (80) 100 12/27/18 20:00 2.0 12/27/18 20:00 Nasal Cannula 2.0 12/27/18 20:00 63 12/27/18 19:44 67 18 100 Nasal Cannula 2.0 28 12/27/18 19:33 66 22 100 Nasal Cannula 2.0 28 12/27/18 19:00 65 20 134/52 (79) 100 12/27/18 18:00 66 15 150/60 (90) 100 12/27/18 17:00 98.9 64 20 146/58 (87) 100 12/27/18 16:00 69 18 156/64 (94) 100 12/27/18 16:00 Nasal Cannula 2.0 12/27/18 15:41 66 12/27/18 15:25 68 18 100 Nasal Cannula 2.0 28 12/27/18 15:15 2.0 12/27/18 15:10 66 18 100 Nasal Cannula 2.0 28 12/27/18 15:00 68 19 153/61 (91) 100 12/27/18 14:00 85 20 146/66 (92) 99 12/27/18 13:00 75 21 145/59 (87) 100 Intake and Output 12/28/18 12/29/18 18:59 06:59 Intake Total 883.333 ml 491.667 ml Output Total 785 ml 860 ml Balance 98.333 ml -368.333 ml IV Total 663.333 ml 131.667 ml Tube Feeding 120 ml 360 ml Other 100 ml Output Urine Total 675 ml 860 ml Stool Total 110 ml Labs Test 12/27/18 04:30 12/29/18 05:15 White Blood Count 8.3 K/UL (4.8-10.8) 7.3 K/UL (4.8-10.8) Red Blood Count 3.14 M/UL (4.20-5.40) 3.14 M/UL (4.20-5.40) Hemoglobin 8.4 G/DL (12.0-16.0) 8.4 G/DL (12.0-16.0) Hematocrit 26.3 % (37.0-47.0) 26.3 % (37.0-47.0) Mean Corpuscular Volume 84 FL (80-99) 84 FL (80-99) Mean Corpuscular Hemoglobin 26.8 PG (27.0-31.0) 26.8 PG (27.0-31.0) Mean Corpuscular Hemoglobin Concent 31.9 G/DL (32.0-36.0) 32.0 G/DL (32.0-36.0) Red Cell Distribution Width 15.1 % (11.6-14.8) 14.9 % (11.6-14.8) Platelet Count 253 K/UL (150-450) 323 K/UL (150-450) Mean Platelet Volume 7.3 FL (6.5-10.1) 6.8 FL (6.5-10.1) Neutrophils (%) (Auto) 63.1 % (45.0-75.0) 62.9 % (45.0-75.0) Lymphocytes (%) (Auto) 30.6 % (20.0-45.0) 30.9 % (20.0-45.0) Monocytes (%) (Auto) 4.2 % (1.0-10.0) 3.3 % (1.0-10.0) Eosinophils (%) (Auto) 1.6 % (0.0-3.0) 2.4 % (0.0-3.0) Basophils (%) (Auto) 0.4 % (0.0-2.0) 0.4 % (0.0-2.0) Sodium Level 140 MMOL/L (136-145) 138 MMOL/L (136-145) Potassium Level 3.7 MMOL/L (3.5-5.1) 3.6 MMOL/L (3.5-5.1) Chloride Level 108 MMOL/L (98-107) 106 MMOL/L (98-107) Carbon Dioxide Level 25 MMOL/L (21-32) 26 MMOL/L (21-32) Anion Gap 7 mmol/L (5-15) 6 mmol/L (5-15) Blood Urea Nitrogen 20 mg/dL (7-18) 13 mg/dL (7-18) Creatinine 1.0 MG/DL (0.55-1.30) 0.9 MG/DL (0.55-1.30) Estimat Glomerular Filtration Rate mL/min (>60) mL/min (>60) Glucose Level 126 MG/DL (74-106) 139 MG/DL (74-106) Uric Acid 4.5 MG/DL (2.6-7.2) Calcium Level 8.0 MG/DL (8.5-10.1) 8.4 MG/DL (8.5-10.1) Phosphorus Level 2.7 MG/DL (2.5-4.9) 3.3 MG/DL (2.5-4.9) Magnesium Level 1.7 MG/DL (1.8-2.4) 1.8 MG/DL (1.8-2.4) Total Bilirubin 0.3 MG/DL (0.2-1.0) 0.2 MG/DL (0.2-1.0) Aspartate Amino Transf (AST/SGOT) 16 U/L (15-37) 13 U/L (15-37) Alanine Aminotransferase (ALT/SGPT) 13 U/L (12-78) 9 U/L (12-78) Alkaline Phosphatase 62 U/L (46-116) 59 U/L (46-116) C-Reactive Protein, Quantitative 16.9 mg/dL (0.00-0.90) Pro-B-Type Natriuretic Peptide 5755 pg/mL (0-125) Total Protein 6.8 G/DL (6.4-8.2) 6.8 G/DL (6.4-8.2) Albumin 1.3 G/DL (3.4-5.0) 1.3 G/DL (3.4-5.0) Globulin 5.5 g/dL 5.5 g/dL Albumin/Globulin Ratio 0.2 (1.0-2.7) 0.2 (1.0-2.7) Height (Feet): 5 Height (Inches): 6.00 Weight (Pounds): 213 Objective Sp02 EP Interpretation: reviewed General Appearance: severe distress, lethargic, Chronically Ill Head: normocephalic, atraumatic Eyes: bilateral eye PERRL, bilateral eye EOMI ENT: dry mucus membranes Neck: full range of motion, supple, no meningismus Respiratory: chest non-tender, respiratory distress, rhonchi. CPAP+ Cardiovascular: regular rate, rhythm, no murmur, tachycardia Gastrointestinal: normal bowel sounds, non tender- Reducible abdominal wall hernia. COLOSTOMY+, GT++ Rectal: other - large sacral Stage 4 ulcer Musculoskeletal: back normal, normal range of motion Psychiatric: mood/affect normal Skin: warm/dry Tobin Stover MD Dec 29, 2018 12:50
[2018-12-29 16:00] VITALS: BP 113/78
--- NOTE | 2018-12-29 16:02 | Infectious Diseases Prog Note ---
Assessment/Plan Assessment/Plan A 1. MRSA pneumonia treated 2. E.coli UTI treated 3. shock 4. renal failure improving 5. respiratory failure 6. diabetes mellitus 7. 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 Left pleural effusion/ atelectasis P 1. Discontinue iv vancomycin 2. Agree with discharge to SNF without antibiotic Subjective ROS Limited/Unobtainable: Yes Constitutional: Reports: no symptoms Respiratory: Reports: productive cough Allergies: Coded Allergies: ALLOPURINOL (Verified Allergy, Unknown, 12/20/18) Objective Vital Signs Last 24 Hour Vital Signs Date Time Temp Pulse Resp B/P (MAP) Pulse Ox O2 Delivery O2 Flow Rate FiO2 12/29/18 14:37 77 18 99 Room Air 12/29/18 14:27 86 18 97 Room Air 12/29/18 12:25 75 18 99 Room Air 12/29/18 12:09 84 18 96 Room Air 12/29/18 12:05 98.2 73 20 150/75 (100) 97 12/29/18 11:32 87 12/29/18 09:50 Room Air 12/29/18 08:00 98.2 68 20 143/63 (89) 97 12/29/18 07:54 74 18 99 Room Air 12/29/18 07:42 81 18 96 Room Air 12/29/18 07:40 66 12/29/18 06:25 98.2 76 20 139/82 (101) 98 12/29/18 04:00 72 12/29/18 03:47 60 18 99 Room Air 12/29/18 03:35 71 18 97 Room Air 12/29/18 00:00 Room Air 12/29/18 00:00 69 12/28/18 23:41 98.2 69 18 140/65 (90) 98 12/28/18 23:29 98.2 69 18 140/65 (90) 98 12/28/18 23:27 65 18 100 Room Air 12/28/18 23:13 77 18 99 Nasal Cannula 2.0 28 12/28/18 21:00 Room Air 12/28/18 20:00 67 12/28/18 20:00 98.0 67 13 164/67 (99) 100 12/28/18 20:00 Room Air 12/28/18 19:32 68 18 99 Room Air 12/28/18 19:18 71 18 98 Room Air 21 12/28/18 19:00 69 13 161/67 (98) 100 12/28/18 18:00 60 21 149/54 (85) 98 12/28/18 18:00 68 15 155/57 (89) 100 12/28/18 17:00 97.9 67 14 146/57 (86) 100 12/28/18 16:26 64 Height (Feet): 5 Height (Inches): 6.00 Weight (Pounds): 213 General Appearance: no acute distress HEENT: mucous membranes moist Respiratory/Chest: lungs clear Cardiovascular: normal rate Abdomen: soft, non tender, other - GT feeding Neurologic/Psychiatric: alert, responsive Laboratory Tests Test 12/29/18 05:15 White Blood Count 7.3 K/UL (4.8-10.8) Red Blood Count 3.14 M/UL (4.20-5.40) L Hemoglobin 8.4 G/DL (12.0-16.0) L Hematocrit 26.3 % (37.0-47.0) L Mean Corpuscular Volume 84 FL (80-99) Mean Corpuscular Hemoglobin 26.8 PG (27.0-31.0) L Mean Corpuscular Hemoglobin Concent 32.0 G/DL (32.0-36.0) Red Cell Distribution Width 14.9 % (11.6-14.8) H Platelet Count 323 K/UL (150-450) Mean Platelet Volume 6.8 FL (6.5-10.1) Neutrophils (%) (Auto) 62.9 % (45.0-75.0) Lymphocytes (%) (Auto) 30.9 % (20.0-45.0) Monocytes (%) (Auto) 3.3 % (1.0-10.0) Eosinophils (%) (Auto) 2.4 % (0.0-3.0) Basophils (%) (Auto) 0.4 % (0.0-2.0) Sodium Level 138 MMOL/L (136-145) Potassium Level 3.6 MMOL/L (3.5-5.1) Chloride Level 106 MMOL/L (98-107) Carbon Dioxide Level 26 MMOL/L (21-32) Anion Gap 6 mmol/L (5-15) Blood Urea Nitrogen 13 mg/dL (7-18) Creatinine 0.9 MG/DL (0.55-1.30) Estimat Glomerular Filtration Rate mL/min (>60) Glucose Level 139 MG/DL (74-106) H Calcium Level 8.4 MG/DL (8.5-10.1) L Phosphorus Level 3.3 MG/DL (2.5-4.9) Magnesium Level 1.8 MG/DL (1.8-2.4) Total Bilirubin 0.2 MG/DL (0.2-1.0) Aspartate Amino Transf (AST/SGOT) 13 U/L (15-37) L Alanine Aminotransferase (ALT/SGPT) 9 U/L (12-78) L Alkaline Phosphatase 59 U/L (46-116) Total Protein 6.8 G/DL (6.4-8.2) Albumin 1.3 G/DL (3.4-5.0) L Globulin 5.5 g/dL Albumin/Globulin Ratio 0.2 (1.0-2.7) L Current Medications Medications (Trade) Dose Ordered Sig/Nora Route PRN Reason Start Time Stop Time Status Last Admin Dose Admin Acetaminophen (Tylenol) 650 mg Q4H PRN GT Mild Pain/Temp > 100.5 12/28/18 21:00 01/25/19 20:59 12/29/18 03:27 Acetylcysteine (Mucomyst) 600 mg Q4HRT HHN 12/28/18 23:00 01/27/19 10:59 12/29/18 14:27 Chlorhexidine Gluconate ([place]-Hex 2%) 1 applic DAILY@2000 TOPIC 12/29/18 20:00 01/21/19 19:59 Clonidine HCl (Catapres Tab) 0.1 mg Q4H PRN GT SBP > 170mmHg 12/28/18 21:00 01/24/19 20:59 Dextrose 1,000 ml @ 40 mls/hr Q24H IV 12/28/18 20:45 01/26/19 11:59 12/29/18 08:47 Dextrose (Dextrose 50%) 25 ml Q30M PRN IV Hypoglycemia 12/28/18 21:00 01/19/19 18:59 Dextrose (Dextrose 50%) 50 ml Q30M PRN IV Hypoglycemia 12/28/18 21:00 01/19/19 18:59 Insulin Aspart (NovoLOG) Q6HR SUBQ 12/29/18 00:00 01/19/19 11:59 12/29/18 11:52 Ipratropium [place] (Atrovent) 500 mcg Q4HRT HHN 12/28/18 23:00 12/31/18 18:59 12/29/18 14:27 Lansoprazole (Prevacid) 30 mg BID GT 12/29/18 09:00 01/20/19 08:59 12/29/18 08:47 Vancomycin HCl (Vanco rx to dose) 1 ea DAILY PRN MISC Per rx protocol 12/29/18 09:00 01/19/19 10:59 Vancomycin HCl 750 mg/Sodium Chloride 275 ml @ 183.333 mls/hr Q24H IVPB 12/29/18 18:00 12/31/18 17:59 Roland Navarro MD Dec 29, 2018 16:02
--- NOTE | 2018-12-29 17:40 | General Progress Note ---
Assessment/Plan Problem List: (1) Anemia, chronic disease ICD Codes: D63.8 - Anemia in other chronic diseases classified elsewhere SNOMED: 973371660, 873676650 (2) Severe dehydration ICD Codes: E86.0 - Dehydration SNOMED: 704460383, 199973398 (3) Hyperglycemia due to type 2 diabetes mellitus ICD Codes: E11.65 - Type 2 diabetes mellitus with hyperglycemia SNOMED: 662141724586353, 45972075 Qualifiers: Qualified Codes: E11.65 - Type 2 diabetes mellitus with hyperglycemia; Z79.4 - longterm (current) use of insulin (4) Acute metabolic encephalopathy ICD Codes: G93.41 - Metabolic encephalopathy SNOMED: 36540739, 717647754 (5) Hypotension ICD Codes: I95.9 - Hypotension, unspecified SNOMED: 23123001 (6) ARF (acute renal failure) ICD Codes: N17.9 - Acute kidney failure, unspecified SNOMED: 90305203, 241580166 Qualifiers: Qualified Codes: N17.9 - Acute kidney failure, unspecified (7) Respiratory failure with hypoxia ICD Codes: J96.91 - Respiratory failure, unspecified with hypoxia SNOMED: 50105928534233881, 720862809 Qualifiers: Qualified Codes: J96.01 - Acute respiratory failure with hypoxia (8) Renal failure (ARF), acute on chronic ICD Codes: N17.9 - Acute kidney failure, unspecified; N18.9 - Chronic kidney disease, unspecified SNOMED: 872717794 (9) Anemia ICD Codes: D64.9 - Anemia, unspecified SNOMED: 198788701 Status: stable, progressing Assessment/Plan: s/p extubation sepsis pna decub sacral dc today if ok w pulm and id and gi Subjective ROS Limited/Unobtainable: Yes Allergies: Coded Allergies: ALLOPURINOL (Verified Allergy, Unknown, 12/20/18) Objective Last 24 Hour Vital Signs Date Time Temp Pulse Resp B/P (MAP) Pulse Ox O2 Delivery O2 Flow Rate FiO2 12/29/18 16:00 98.8 78 20 113/78 (90) 97 12/29/18 14:37 77 18 99 Room Air 21 12/29/18 14:27 86 18 97 Room Air 21 12/29/18 12:25 75 18 99 Room Air 21 12/29/18 12:09 84 18 96 Room Air 21 12/29/18 12:05 98.2 73 20 150/75 (100) 97 12/29/18 11:32 87 12/29/18 09:50 Room Air 12/29/18 08:00 98.2 68 20 143/63 (89) 97 12/29/18 07:54 74 18 99 Room Air 12/29/18 07:42 81 18 96 Room Air 12/29/18 07:40 66 12/29/18 06:25 98.2 76 20 139/82 (101) 98 12/29/18 04:00 72 12/29/18 03:47 60 18 99 Room Air 21 12/29/18 03:35 71 18 97 Room Air 12/29/18 00:00 Room Air 12/29/18 00:00 69 12/28/18 23:41 98.2 69 18 140/65 (90) 98 12/28/18 23:29 98.2 69 18 140/65 (90) 98 12/28/18 23:27 65 18 100 Room Air 12/28/18 23:13 77 18 99 Nasal Cannula 2.0 28 12/28/18 21:00 Room Air 12/28/18 20:00 67 12/28/18 20:00 98.0 67 13 164/67 (99) 100 12/28/18 20:00 Room Air 12/28/18 19:32 68 18 99 Room Air 12/28/18 19:18 71 18 98 Room Air 12/28/18 19:00 69 13 161/67 (98) 100 12/28/18 18:00 60 21 149/54 (85) 98 12/28/18 18:00 68 15 155/57 (89) 100 Intake and Output 12/28/18 12/29/18 18:59 06:59 Intake Total 883.333 ml 491.667 ml Output Total 785 ml 860 ml Balance 98.333 ml -368.333 ml IV Total 663.333 ml 131.667 ml Tube Feeding 120 ml 360 ml Other 100 ml Output Urine Total 675 ml 860 ml Stool Total 110 ml Laboratory Tests 12/29/18 05:15: White Blood Count 7.3, Red Blood Count 3.14L, Hemoglobin 8.4L, Hematocrit 26.3L , Mean Corpuscular Volume 84, Mean Corpuscular Hemoglobin 26.8L, Mean Corpuscular Hemoglobin Concent 32.0, Red Cell Distribution Width 14.9H, Platelet Count 323, Mean Platelet Volume 6.8, Neutrophils (%) (Auto) 62.9, Lymphocytes (%) (Auto) 30.9, Monocytes (%) (Auto) 3.3, Eosinophils (%) (Auto) 2.4, Basophils (%) (Auto) 0.4, Sodium Level 138, Potassium Level 3.6, Chloride Level 106, Carbon Dioxide Level 26, Anion Gap 6, Blood Urea Nitrogen 13, Creatinine 0.9, Estimat Glomerular Filtration Rate , Glucose Level 139H, Calcium Level 8.4L, Phosphorus Level 3.3, Magnesium Level 1.8, Total Bilirubin 0.2, Aspartate Amino Transf (AST/SGOT) 13L, Alanine Aminotransferase (ALT/SGPT) 9L, Alkaline Phosphatase 59, Total Protein 6.8, Albumin 1.3L, Globulin 5.5, Albumin/Globulin Ratio 0.2L Height (Feet): 5 Height (Inches): 6.00 Weight (Pounds): 213 Cardiovascular: normal rate Respiratory/Chest: lungs clear Danial Walden MD Dec 29, 2018 17:40
[2018-12-29] MEDS ORDERED: Vancomycin 750 MG in NS 275 ML IVPB SCH (18:00)
[2018-12-29] MEDS ORDERED: NS 275ml ONE ×2 (19:59)
[2018-12-29] MEDS ORDERED: Dyna-Hex 2% Top Sol 2oz TOPIC SCH (20:00)
--- NOTE | 2018-12-29 21:11 | Pulmonolgy Critical Care Note ---
Critical Care - Asmt/Plan Assessment/Plan: Pulmonary CCM Progress Note Assessment/Plan Respiratory failure, s/p extubation, CXR possible left effusion vs infiltrate sepsis hypotension sacral ulcer hypernatremia acute renal failure severe protein calorie malnutrition hypoxemia, severe hypercapnia possible pneumonia possible demand ischemia PLAN care noted an reviewed HHN/CPT, PRN BiPAP O2 sats 90-94% antibiotics and cultures noted and reviewed hydration with caution supportive care nutrition medications/laboratory data/nursing notes/Icare reviewed in detail note reviewed and edited care discussed with RN and RT Critical Care - Subjective Interval Events: care noted on oxygen ROS Limited/Unobtainable: Yes Condition: critical EKG Rhythm: Sinus Rhythm Critical Care - Objective ET-Tube: 7.5 ET Position: 23 Vital Signs Noted Objective: Sp02 EP Interpretation: reviewed, normal General Appearance: normal inspection, well appearing, no apparent distress, sedated Head: normocephalic, atraumatic Eyes: bilateral eye normal inspection ENT: oral ETT Neck: normal inspection, full range of motion, supple, no meningismus, carotid 2+ Respiratory: decreased breath sounds, moderate breath sounds with some rhonchi left Cardiovascular #1: regular rhythm, no murmur without MRG; Gastrointestinal: non tender, soft, non-distended, no guarding, no rebound Musculoskeletal: no CCE Neurologic: sedated reviewed and edited Micro: Microbiology Date/Time Source Procedure Growth Status 12/21/18 13:30 Blood Blood Culture - Preliminary NO GROWTH Resulted Seen earlier 12/28/2018 Critical Care - Objective Last 24 Hour Vital Signs Date Time Temp Pulse Resp B/P (MAP) Pulse Ox O2 Delivery O2 Flow Rate FiO2 12/29/18 16:00 98.8 78 20 113/78 (90) 97 12/29/18 15:29 77 12/29/18 14:37 77 18 99 Room Air 21 12/29/18 14:27 86 18 97 Room Air 21 12/29/18 12:25 75 18 99 Room Air 21 12/29/18 12:09 84 18 96 Room Air 21 12/29/18 12:05 98.2 73 20 150/75 (100) 97 12/29/18 11:32 87 12/29/18 09:50 Room Air 12/29/18 08:00 98.2 68 20 143/63 (89) 97 12/29/18 07:54 74 18 99 Room Air 21 12/29/18 07:42 81 18 96 Room Air 12/29/18 07:40 66 12/29/18 06:25 98.2 76 20 139/82 (101) 98 12/29/18 04:00 72 12/29/18 03:47 60 18 99 Room Air 12/29/18 03:35 71 18 97 Room Air 12/29/18 00:00 Room Air 12/29/18 00:00 69 12/28/18 23:41 98.2 69 18 140/65 (90) 98 12/28/18 23:29 98.2 69 18 140/65 (90) 98 12/28/18 23:27 65 18 100 Room Air 12/28/18 23:13 77 18 99 Nasal Cannula 2.0 28 Accucheck: 129 Critical Care - Subjective ROS Limited/Unobtainable: No FI02: 21 Vent Support Breath Rate: 15 Vent Support Mode: CPAP Vent Tidal Volume: 500 Sputum Amount: None PEEP: 5.0 PIP: 26 Tube Feeding Amount: 30 I&O: Intake and Output 12/28/18 12/29/18 19:00 07:00 Intake Total 1005.000 ml 360 ml Output Total 695 ml 1250 ml Balance 310.000 ml -890 ml IV Total 755.000 ml Tube Feeding 150 ml 360 ml Other 100 ml Output Urine Total 585 ml 850 ml Stool Total 110 ml 400 ml ET-Tube: 7.5 ET Position: 23 Minh Dunbar MD Dec 29, 2018 21:11
--- NOTE | 2018-12-30 21:21 | Discharge Summary ---
Discharge Summary Discharge Summary _ DATE OF ADMISSION: 12/20/2018 DATE OF DISCHARGE: 12/29/2018 DISCHARGED BY: Dr. Walden REASON FOR ADMISSION: 83 years old female, resident of senior care facility, with multiply medical comorbidities, including hypertension, COPD, sacral decubitus ulcer stage IV, colostomy, history of kidney failure, presented with altered mental status and fever for 1 day. Patient had been having fever for 1 day off and on. Prior to arrival of paramedics she became poorly responsive and hypoxic with pulse oximetry 72% on room air. Patient presented with 100% nonrebreathing mask, hypotensive, tachycardic, and with low-grade fever. Laboratory work-up revealed sodium 161, potassium 3.5, magnesium 1.7. BUN 121, creatinine 2.1. Glucose 386. CRP 21.5. Initial troponin negative. EKG reveals sinus tachycardia no acute ischemic changes. Pro BNP 861. Lactic acid 3.8. WBC 19.9, hemoglobin 11.4, hematocrit 37.1. Urinalysis revealed gross evidence of UTI. Chest x-ray demonstrated right perihilar infiltrate. Left-sided pleural effusion and possible left basilar parenchymal consolidation. Patient initially improved on the BiPAP. However , oxygenated started to drop, and patient became more tachycardic. Patient subsequently was orally intubated . Patient started on fluid resuscitation, with improvement in heart rate. Patient pancultured, started on empiric antibiotic and admitted for further management. CONSULTANTS: fine patcher Dr. Chisholm lsw Dr. Day pulmonary Dr. Flanagan ID specialist Dr. Villaseñor GI specialist Dr. Vora client relationship consultant Dr. Cifuentes aluminum polisher/oncologist Dr. Stover surgery Dr. Morrow [facility] COURSE: Patient admitted to ICU. Patient was continue on generous IV hydration and empiric antibiotics. Hemodynamic status was closely monitored. Patient required pressors , which titrated to keep mean arterial blood pressure above 65. Initial troponin was negative. Repeated troponin showed very mild elevation 0.135, 0.175 , and 0.105. Echocardiogram demonstrated normal left ventricular chamber size. No evidence of left ventricular hypertrophy. The study precluded accurate assessment of left ventricular wall motion and ejection fraction. Right ventricular systolic pressure of 40, consistent with mild pulmonary hypertension. Moderate tricuspid regurgitation. Lipid panel was stable. Patient eventually was able to be weaned off pressors. Troponin levels were flat. EKG revealed no acute ischemic changes. Patient likely had troponin leak due to renal failure. Field Geologist closely follow. Ventilator support provided. Pulmonary toilet via handheld nebulizing therapy with bronchodilator and Mucomyst provided as needed. Patient was suctioned as needed. Patient was followed-up with chest x-ray. As patient clinically stabilized, patient started on weaning protocol. Patient was able to be extubated on 12/27. Subsequently supplemental oxygen provided as needed to keep pulse oximetry above 92%. Prior to discharge pulse oximetry was stable on room air. Venous duplex bilateral lower extremity revealed chronic thrombus in the common femoral and superficial femoral veins right lower extremity. No evidence of acute DVT. DVT prophylaxis provided. Infectious disease specialist closely followed. Blood culture were negative. Urine culture revealed E. coli. Sputum culture revealed MRSA. Repeated blood culture were negative as well. Patient completed treatment for pneumonia and UTI while in the hospital. Leukocytosis trending down, patient afebrile. Salvage Winder closely followed for acute renal failure. Patient was initially provided with generous hydration. Renal parameters 9 and electrolytes were closely monitored. Electrolytes corrected as needed, and nephrotoxins were avoided. Prior to discharge sodium 138. BUN 13, creatinine 0.9. Acute renal failure, which was likely due to shock and severe dehydration, resolved. Hypernatremia was due to free water deficit. GI specialist closely followed. Strict aspiration/reflux precaution maintained. Tube feeding formula provided as per registered dietitian recommendation. Protein supplements implemented in plan of care. Colostomy care provided. GI specialist recommended GI procedure only if emergent. GI prophylaxis provided. Patient noted to be anemic. Tray Checker followed. Anemia work-up revealed evidence of anemia of chronic disease. Ferritin 367. Stable B12 and folate. Stool for occult blood was positive x1. Hemoglobin and hematocrit were closely monitored with goal to keep hemoglobin above 7. No evidence of hemolysis was noted. Peripheral smear have been reviewed by aluminum polisher. Patient was transfused with 2 units of packed red blood cells while in the hospital. Prior to discharge hemoglobin 8.4, hematocrit 26.3. Geographic Information Systems Engineer followed for initial hyperglycemia. Hemoglobin A1c 9.5, not at goal. Blood sugar was managed as per lsw recommendation with long-acting insulin and sliding scale of short acting insulin as needed. Blood sugar stabilized. Wound care for present on admission sacral decubitus ulcer stage IV, was provided as per surgeon recommendation. Continue wound care at the facility. Patient clinically stabilized and was ready for transfer back to senior care facility for continuation of care. FINAL DIAGNOSES: Severe hypoxemic and hypercapnic respiratory failure requiring intubation Septic and hypovolemic shock -resolved Sepsis due to pneumonia and UTI MRSA pneumonia/healthcare associated pneumonia, status post treatment E. coli ESBL, status post treatment Troponin leak, secondary to renal failure Renal failure, acute on chronic( due to shock and severe dehydration) Severe dehydration Hypernatremia ( due to free water deficit) Severe protein calorie malnutrition Dysphagia , feeding by PEG Anemia of chronic disease Acute metabolic encephalopathy Hyperglycemia due to type 2 diabetes mellitus Diabetes mellitus out of control Colostomy status Sacral decubitus ulcer stage IV, present on admission. DISCHARGE MEDICATIONS: See Medication Reconciliation list. DISCHARGE INSTRUCTIONS: Patient was discharged to the senior care facility. Follow up with medical doctor at the facility. I have been assigned to dictate discharge summary for this account. I was not involved in the patient's management. Penelope Bennett NP Dec 30, 2018 21:21
== END 2018-12-29 20:00 | DRG 870 ==
LOC: EDBD 02:10 → EMR 02:29 → EDBEDREQ 03:00 → ICU 03:05 → EDBEDREQ 04:22 → 2E 12-28 20:29
PROC: 0BH17EZ Insertion of Endotracheal Airway into Trachea, Via Natural or Artificial Opening (ICD-10-PCS; principal; 2018-12-20)
PROC: 05HM33Z Insertion of Infusion Device into Right Internal Jugular Vein, Percutaneous Approach (ICD-10-PCS; principal; 2018-12-20)
PROC: 5A1955Z Respiratory Ventilation, Greater than 96 Consecutive Hours (ICD-10-PCS; principal; 2018-12-20)
DX: A41.02 Sepsis due to Methicillin resistant Staphylococcus aureus (principal); L89.154 Pressure ulcer of sacral region, stage 4; E43 Unspecified severe protein-calorie malnutrition; J15.212 Pneumonia due to Methicillin resistant Staphylococcus aureus; R65.21 Severe sepsis with septic shock; J96.01 Acute respiratory failure with hypoxia; J96.02 Acute respiratory failure with hypercapnia; G93.41 Metabolic encephalopathy; N17.9 Acute kidney failure, unspecified; J44.0 Chronic obstructive pulmonary disease with (acute) lower respiratory infection; E87.0 Hyperosmolality and hypernatremia; N39.0 Urinary tract infection, site not specified; J98.11 Atelectasis; I82.511 Chronic embolism and thrombosis of right femoral vein; A41.51 Sepsis due to Escherichia coli [E. coli]; E86.0 Dehydration; E11.65 Type 2 diabetes mellitus with hyperglycemia; Z79.4 Long term (current) use of insulin; Z93.1 Gastrostomy status; Z93.3 Colostomy status; D64.9 Anemia, unspecified; B96.20 Unspecified Escherichia coli [E. coli] as the cause of diseases classified elsewhere; R13.10 Dysphagia, unspecified; I12.9 Hypertensive chronic kidney disease with stage 1 through stage 4 chronic kidney disease, or unspecified chronic kidney disease; E11.22 Type 2 diabetes mellitus with diabetic chronic kidney disease; N18.9 Chronic kidney disease, unspecified
CPT/HCPCS: 31500; 36415; 36600; 71045; 80048; 80053; 80061; 80202; 81001; 81003; 82140; 82270; 82533; 82550; 82553; 82607; 82728; 82746; 82803; 82962; 82977; 83036; 83540; 83550; 83605; 83735; 83880; 84100; 84443; 84484; 84550; 85007; 85025; 86140; 86850; 86900; 86901; 86920; 87040; 87070; 87081; 87086; 87181; 87205; 93005; 93306; 93970; 94002; 94003; 94640; 94660; 94664; 96361; 96365; 96368; 96372; 96375; 99291; J1815; J2250; S5561

== ENCOUNTER 2019-02-18 12:17 | Inpatient (IN) | payer MEDICARE, MEDICAID ==
[2019-02-18] VITALS (16 sets, daily range): BP systolic 78–192; BP diastolic 40–95
[~2019-02-18] VITALS: Ht 170.2 cm; Wt 89.9 kg
[~2019-02-18 12:17] MED LIST: ACETAMINOPHEN325 M1 GT; ASCORBIC ACID500 MG GT; CENTRUM GT; FOLIC ACID1 MG GT; HEPARIN SO5000 UNIT2 SUBQ; HYDRALAZINE HCL10 MG ORAL; PHOS-NAK PACKE1 EAC1 GT; PRO-STAT LIQUID30 ML GT; RISPERIDONE0.25 MG GT; SOD CITRATE-CIT15 ML GT; ZINC SULFATE220 M1 GT; ZOFRAN4 M3 GT
--- NOTE | 2019-02-18 12:18 | NUR ---
ED Nurse Note: Pt brought in by RA 29 from [facility] due to being more altered than usual. Blood sugar was also critically high en route and NS 250ml was given by EMS as bolus. Awake but non verbal and unable to follow commands, no respiratory distress, Noted wound VAC and wound on pt's back. G tube also in place and flushing patent.
--- NOTE | 2019-02-18 12:43 | Emergency Room Report ---
History of Present Illness General Chief Complaint: Altered Level of Consciousness Source: Medical Record, EMS Present Illness HPI Patient is sent in with complaints of change in mental status nursing facility is being contacted to obtain the specifics Ongoing however over the past 8 hours Patient's glucose was also too high to read at the nursing facility No other reports of vomiting or diarrhea Unknown regarding any fall or trauma Patient remains nonverbal and this does limit the history of present illness Allergies: Coded Allergies: ALLOPURINOL (Verified Allergy, Unknown, 12/20/18) Patient History Limited by: medical condition Past Medical History: see triage record Reviewed Nursing Documentation: PMH: Agreed; PSxH: Agreed Nursing Documentation-PMH Hx Hypertension: Yes Hx COPD: Yes - SOB Hx Cancer: No Hx Gastrointestinal Problems: Yes - Dysphagia, Gastrostomy, Colostomy Hx Cerebrovascular Accident: Yes - atherosclerosis of aorta, anemia Review of Systems All Other Systems: limited Physical Exam Vital Signs Date Time Temp Pulse Resp B/P (MAP) Pulse Ox O2 Delivery O2 Flow Rate FiO2 02/18/19 12:08 98.1 101 24 101/82 (88) 98 Room Air Sp02 EP Interpretation: reviewed, normal General Appearance: mild distress - Patient is decreased with her responsiveness moans with physical stimuli Head: normocephalic, atraumatic Eyes: bilateral eye PERRL ENT: no angioedema, dry mucus membranes Neck: supple Respiratory: no respiratory distress, crackles - bilaterally Cardiovascular #1: tachycardia Gastrointestinal: non tender, soft, other - Colostomy bag in place left mid abdomen Musculoskeletal: other - Patient does not follow commands upper extremity localizes towards physical stimuli, Neurologic: other - Significantly decreased GCS patient makes moaning sound to physical stimuli is somewhat purposeful with her upper extremity, otherwise nonverbal does not follow commands Skin: other - deubitus ulcerations Lymphatic: no adenopathy Procedures Critical Care Time Critical Care Time 80 minutes for multiple re-evaluations initial critical presentation concern for cardiopulmonary arrest not including any procedural time Central Line Central Line : Consent: Emergent Central Line Lumen: triple Maximal Sterile Barrier Tech: yes cap, yes mask, yes sterile gown, yes sterile gloves, yes large sterile sheet, yes hand hygiene, yes chlorhexidine prep Central Line Postion: femoral (R) Complications: none Central Line Post Position: sutured Attempts: One Patient Tolerated: Well Complications: None Medical Decision Making Diagnostic Impression: Primary Impression: Renal failure (ARF), acute on chronic Additional Impressions: Electrolyte imbalance Sepsis ER Course Patient presents with multiple differentials and consideration including but not limited to cardiac, cardiopulmonary, vascular pathology Electrolyte abnormalities also considered Patient's glucose is too high to read further hydration and insulin is initiated Patient's condition continued to deteriorate requiring central line placement with further aggressive hydration and Insulin drip patient also provided Broad-spectrum antibiotics ABG reveals compensated findings patient's remaining appropriate with mentation with stimuli and airway is intact Patient is in risk of acute deterioration and is admitted to higher level of care in critical condition Labs Test 02/18/19 12:50 02/18/19 14:18 White Blood Count 12.1 K/UL (4.8-10.8) Red Blood Count 3.84 M/UL (4.20-5.40) Hemoglobin 10.3 G/DL (12.0-16.0) Hematocrit 36.4 % (37.0-47.0) Mean Corpuscular Volume 95 FL (80-99) Mean Corpuscular Hemoglobin 26.7 PG (27.0-31.0) Mean Corpuscular Hemoglobin Concent 28.2 G/DL (32.0-36.0) Red Cell Distribution Width 18.2 % (11.6-14.8) Platelet Count 339 K/UL (150-450) Mean Platelet Volume 7.5 FL (6.5-10.1) Neutrophils (%) (Auto) 73.1 % (45.0-75.0) Lymphocytes (%) (Auto) 23.0 % (20.0-45.0) Monocytes (%) (Auto) 3.1 % (1.0-10.0) Eosinophils (%) (Auto) 0.5 % (0.0-3.0) Basophils (%) (Auto) 0.4 % (0.0-2.0) Prothrombin Time 10.8 SEC (9.30-11.50) Prothromb Time International Ratio 1.0 (0.9-1.1) Activated Partial Thromboplast Time 19 SEC (23-33) Urine Color Pale yellow Urine Appearance Cloudy Urine pH 8 (4.5-8.0) Urine Specific Kiester 1.010 (1.005-1.035) Urine Protein 3+ (NEGATIVE) Urine Glucose (UA) 4+ (NEGATIVE) Urine Ketones Negative (NEGATIVE) Urine Blood 3+ (NEGATIVE) Urine Nitrite Negative (NEGATIVE) Urine Bilirubin Negative (NEGATIVE) Urine Urobilinogen Normal MG/DL (0.0-1.0) Urine Leukocyte Esterase 3+ (NEGATIVE) Urine RBC 10-15 /HPF (0 - 2) Urine WBC Tntc /HPF (0 - 2) Urine Squamous Epithelial Cells Few /LPF (NONE/OCC) Urine Bacteria Few /HPF (NONE) Sodium Level 163 MMOL/L (136-145) Potassium Level 6.1 MMOL/L (3.5-5.1) Chloride Level 125 MMOL/L (98-107) Carbon Dioxide Level 35 MMOL/L (21-32) Anion Gap 4 mmol/L (5-15) Blood Urea Nitrogen 119 mg/dL (7-18) Creatinine 2.2 MG/DL (0.55-1.30) Estimat Glomerular Filtration Rate mL/min (>60) Glucose Level 918 MG/DL (74-106) Calcium Level 10.5 MG/DL (8.5-10.1) Total Bilirubin 0.3 MG/DL (0.2-1.0) Aspartate Amino Transf (AST/SGOT) 18 U/L (15-37) Alanine Aminotransferase (ALT/SGPT) 12 U/L (12-78) Alkaline Phosphatase 181 U/L (46-116) Total Creatine Kinase 210 U/L (26-308) Creatine Kinase MB 1.3 NG/ML (0.0-3.6) Creatine Kinase MB Relative Index 0.6 Troponin I 0.000 ng/mL (0.000-0.056) Pro-B-Type Natriuretic Peptide 670 pg/mL (0-125) Total Protein 10.1 G/DL (6.4-8.2) Albumin 2.0 G/DL (3.4-5.0) Globulin 8.1 g/dL Albumin/Globulin Ratio 0.2 (1.0-2.7) Lipase 522 U/L (73-393) Arterial Blood pH 7.369 (7.350-7.450) Arterial Blood Partial Pressure CO2 56.1 mmHg (35.0-45.0) Arterial Blood Partial Pressure O2 66.8 mmHg (75.0-100.0) Arterial Blood HCO3 31.6 mmol/L (22.0-26.0) Arterial Blood Oxygen Saturation 91.5 % (95-100) Arterial Blood Base Excess 5.3 (-2-2) Brock Test Positive Labs Test 02/18/19 12:50 White Blood Count 12.1 K/UL (4.8-10.8) Red Blood Count 3.84 M/UL (4.20-5.40) Hemoglobin 10.3 G/DL (12.0-16.0) Hematocrit 36.4 % (37.0-47.0) Mean Corpuscular Volume 95 FL (80-99) Mean Corpuscular Hemoglobin 26.7 PG (27.0-31.0) Mean Corpuscular Hemoglobin Concent 28.2 G/DL (32.0-36.0) Red Cell Distribution Width 18.2 % (11.6-14.8) Platelet Count 339 K/UL (150-450) Mean Platelet Volume 7.5 FL (6.5-10.1) Neutrophils (%) (Auto) 73.1 % (45.0-75.0) Lymphocytes (%) (Auto) 23.0 % (20.0-45.0) Monocytes (%) (Auto) 3.1 % (1.0-10.0) Eosinophils (%) (Auto) 0.5 % (0.0-3.0) Basophils (%) (Auto) 0.4 % (0.0-2.0) Prothrombin Time 10.8 SEC (9.30-11.50) Prothromb Time International Ratio 1.0 (0.9-1.1) Activated Partial Thromboplast Time 19 SEC (23-33) Urine Color Pale yellow Urine Appearance Cloudy Urine pH 8 (4.5-8.0) Urine Specific Kiester 1.010 (1.005-1.035) Urine Protein 3+ (NEGATIVE) Urine Glucose (UA) 4+ (NEGATIVE) Urine Ketones Negative (NEGATIVE) Urine Blood 3+ (NEGATIVE) Urine Nitrite Negative (NEGATIVE) Urine Bilirubin Negative (NEGATIVE) Urine Urobilinogen Normal MG/DL (0.0-1.0) Urine Leukocyte Esterase 3+ (NEGATIVE) Urine RBC 10-15 /HPF (0 - 2) Urine WBC Tntc /HPF (0 - 2) Urine Squamous Epithelial Cells Few /LPF (NONE/OCC) Urine Bacteria Few /HPF (NONE) Sodium Level 163 MMOL/L (136-145) Potassium Level 6.1 MMOL/L (3.5-5.1) Chloride Level 125 MMOL/L (98-107) Carbon Dioxide Level 35 MMOL/L (21-32) Anion Gap 4 mmol/L (5-15) Blood Urea Nitrogen 119 mg/dL (7-18) Creatinine 2.2 MG/DL (0.55-1.30) Estimat Glomerular Filtration Rate mL/min (>60) Glucose Level 918 MG/DL (74-106) Calcium Level 10.5 MG/DL (8.5-10.1) Total Bilirubin 0.3 MG/DL (0.2-1.0) Aspartate Amino Transf (AST/SGOT) 18 U/L (15-37) Alanine Aminotransferase (ALT/SGPT) 12 U/L (12-78) Alkaline Phosphatase 181 U/L (46-116) Total Creatine Kinase 210 U/L (26-308) Creatine Kinase MB 1.3 NG/ML (0.0-3.6) Creatine Kinase MB Relative Index 0.6 Troponin I 0.000 ng/mL (0.000-0.056) Pro-B-Type Natriuretic Peptide 670 pg/mL (0-125) Total Protein 10.1 G/DL (6.4-8.2) Albumin 2.0 G/DL (3.4-5.0) Globulin 8.1 g/dL Albumin/Globulin Ratio 0.2 (1.0-2.7) Lipase 522 U/L (73-393) Rhythm Strip Diag. Results EP Interpretation: yes Rate: 98 Rhythm: NSR, no PVC's, no ectopy Chest X-Ray Diagnostic Results Chest X-Ray Diagnostic Results : Chest X-Ray Ordered: Yes # of Views/Limited/Complete: 1 View Indication: Chest Pain EP Interpretation: Yes Interpretation: no consolidation, no effusion, no pneumothorax Impression: No acute disease Electronically Signed by: Danial Brown, CT/MRI/US Diagnostic Results CT/MRI/US Diagnostic Results : Impression CT abdomen pelvisImpression: Marked abnormal bladder, with wall thickening, and extensive stranding of the pericystic fat. Gas within the bladder lumen is presumably related to Agarwal catheter. However, gas bubbles at the periphery of the dome of the bladder are concerning for intramural gas consistent with emphysematous cystitis. Positive for tiny right distal ureteral calculus resulting in moderate right hydronephrosis and hydroureter Bilateral intrarenal calculi Extensive retrosacral/retrococcygeal decubitus changes. Correlate with clinical findings. Underlying bone loss possible Postsurgical changes, including evidence of prior transverse colostomy and mucous fistula, prior cholecystectomy, gastrostomy, hysterectomy Basilar pulmonary parenchymal atelectasis, scarring, and bronchiectasis Evidence of old granulomatous disease within the left pulmonary hilum, liver, and spleen Right groin femoral arterial catheter Other findings as noted, including renal cysts, degenerative spondylosis changes Last Vital Signs Date Time Temp Pulse Resp B/P (MAP) Pulse Ox O2 Delivery O2 Flow Rate FiO2 02/18/19 12:08 98.1 101 24 101/82 (88) 98 Room Air Status: improved Disposition: ADMITTED INPATIENT Condition: Critical Danial Brown DO Feb 18, 2019 12:43
[2019-02-18 13:09] LABS: APPEARANCE,URINE CLOUDY; BILIRUBIN, URINE NEGATIVE (NEGATIVE); GLUCOSE, URINE (UA) 4+ (NEGATIVE); KETONES,URINE NEGATIVE (NEGATIVE); LEUKOCYTE ESTERASE ,URINE 3+ (NEGATIVE); NITRITE,URINE NEGATIVE (NEGATIVE); PH,URINE 8 (4.5-8.0); PROTEIN,URINE 3+ (NEGATIVE); UROBILINOGEN,URINE NORMAL MG/DL (0.0-1.0)
[2019-02-18 13:10] LABS: BASOPHILS % (AUTO) 0.4 % (0.0-2.0); EOSINOPHILS % (AUTO) 0.5 % (0.0-3.0); HEMATOCRIT 36.4 % (37.0-47.0); HEMOGLOBIN 10.3 G/DL (12.0-16.0); MEAN CORPUSCULAR VOLUME 95 FL (80-99); MONOCYTES % (AUTO) 3.1 % (1.0-10.0); NEUTROPHILS % (AUTO) 73.1 % (45.0-75.0); PLATELET COUNT 339 K/UL (150-450); RED BLOOD COUNT 3.84 M/UL (4.20-5.40); RED CELL DISTRIBUTION WIDTH 18.2 % (11.6-14.8); WHITE BLOOD COUNT 12.1 K/UL (4.8-10.8)
[2019-02-18 13:15] LABS: COLOR,URINE PALE YELLOW
[2019-02-18 13:31] LABS: ALANINE AMINOTRANSFERASE 12 U/L (12-78); ALBUMIN/GLOBULIN RATIO 0.2 (1.0-2.7); ALKALINE PHOSPHATASE 181 U/L (46-116); ANION GAP 4 mmol/L (5-15); ASPARTATE AMINO TRANSFERASE 18 U/L (15-37); BILIRUBIN,TOTAL 0.3 MG/DL (0.2-1.0); BLOOD UREA NITROGEN 119 mg/dL (7-18); CALCIUM 10.5 MG/DL (8.5-10.1); CARBON DIOXIDE 35 MMOL/L (21-32); CHLORIDE 125 MMOL/L (98-107); CKMB 1.3 NG/ML (0.0-3.6); CREATINE KINASE 210 U/L (26-308); CREATININE 2.2 MG/DL (0.55-1.30)
[2019-02-18 13:44] LABS: SODIUM 163 MMOL/L (136-145)
[2019-02-18] MEDS ORDERED: cefTRIAXone 1 GM in NS 55 ML IVPB ONE (13:45)
[2019-02-18 13:47] LABS: POTASSIUM 6.1 MMOL/L (3.5-5.1)
[2019-02-18] MEDS ORDERED: Sodium Polystyrene Sulfonate 15gm Powder ORAL ONE (14:00)
[2019-02-18] MEDS ORDERED: Insulin Human Regular 100units/ml 3ml IV ONE (14:00)
--- NOTE | 2019-02-18 14:20 | NUR ---
ED Nurse Note: Blood pressure noted to be 78/50. Put pt on trendelenberg position with NS running as bolus. Dr Brown aware.
[2019-02-18] MEDS ORDERED: Vancomycin 1.5 GM in NS 275 ML IVPB ONE (14:30)
--- NOTE | 2019-02-18 15:10 | Pulmonolgy Critical Care Note ---
Critical Care - Asmt/Plan Assessment/Plan: Pulmonary CCM Consultation HPI Patient is an 83 year old woman [facility], history of Diabetes, admitted with alteration in mental status, very high glucose readings No reports of vomiting or diarrhea Unknown regarding any fall or trauma Allergies: ALLOPURINOL Past Medical History: Diabetes, Hypertension, Chronic Obstructive Pulmonary Disease, Dyphagia, s/p Gastrostomy Tube, Anemia, Previous CVA, previous colostomy All Other Systems: limited Physical Exam Vital Signs Noted Date Time Temp Pulse Resp B/P (MAP) Pulse Ox O2 Delivery O2 Flow Rate FiO2 02/18/19 12:08 98.1 101 24 101/82 (88) 98 Room Air General Appearance: Chronically ill appearing, altered mental status, no response to verbal command,moans with physical stimuli Head: normocephalic, atraumatic Eyes: bilateral eye PERRL ENT: no angioedema, dry mucus membranes Neck: supple, no LN Respiratory: no respiratory distress, crackles - bilaterally Cardiovascular: tachycardia, HS1, HS2, normal, RRR Gastrointestinal: non tender, soft, other - Colostomy bag noted Musculoskeletal: oupper extremity localizes towards physical stimuli, Neurologic: Significantly decreased GCS patient makes moaning sound to physical stimuli is somewhat purposeful with her upper extremity, otherwise nonverbal does not follow commands Skin: no rash, no edema Impression Severe Hyperglycemia Severe Dehydration Urinary Tract Infection Sepsis Previous Diabetes Hypertension Chronic Obstructive Pulmonary Disease Dysphagia, s/p Gastrostomy Tube Anemia Previous CVA Plan - IV Antibiotics - Blood/Urine cultures - Insulin drip - IV fluids - Monitor labs - Pressors PRN - HHN - O2 PRN - CLOTH FINISHER meds - PPX - Chest and Brain imaging - LE dupplex r/o DVT Labs Noted Test 02/18/19 12:50 02/18/19 14:18 White Blood Count 12.1 K/UL (4.8-10.8) Red Blood Count 3.84 M/UL (4.20-5.40) Hemoglobin 10.3 G/DL (12.0-16.0) Hematocrit 36.4 % (37.0-47.0) Mean Corpuscular Volume 95 FL (80-99) Mean Corpuscular Hemoglobin 26.7 PG (27.0-31.0) Mean Corpuscular Hemoglobin Concent 28.2 G/DL (32.0-36.0) Red Cell Distribution Width 18.2 % (11.6-14.8) Platelet Count 339 K/UL (150-450) Mean Platelet Volume 7.5 FL (6.5-10.1) Neutrophils (%) (Auto) 73.1 % (45.0-75.0) Lymphocytes (%) (Auto) 23.0 % (20.0-45.0) Monocytes (%) (Auto) 3.1 % (1.0-10.0) Eosinophils (%) (Auto) 0.5 % (0.0-3.0) Basophils (%) (Auto) 0.4 % (0.0-2.0) Prothrombin Time 10.8 SEC (9.30-11.50) Prothromb Time International Ratio 1.0 (0.9-1.1) Activated Partial Thromboplast Time 19 SEC (23-33) Urine Color Pale yellow Urine Appearance Cloudy Urine pH 8 (4.5-8.0) Urine Specific Chandler 1.010 (1.005-1.035) Urine Protein 3+ (NEGATIVE) Urine Glucose (UA) 4+ (NEGATIVE) Urine Ketones Negative (NEGATIVE) Urine Blood 3+ (NEGATIVE) Urine Nitrite Negative (NEGATIVE) Urine Bilirubin Negative (NEGATIVE) Urine Urobilinogen Normal MG/DL (0.0-1.0) Urine Leukocyte Esterase 3+ (NEGATIVE) Urine RBC 10-15 /HPF (0 - 2) Urine WBC Tntc /HPF (0 - 2) Urine Squamous Epithelial Cells Few /LPF (NONE/OCC) Urine Bacteria Few /HPF (NONE) Sodium Level 163 MMOL/L (136-145) Potassium Level 6.1 MMOL/L (3.5-5.1) Chloride Level 125 MMOL/L (98-107) Carbon Dioxide Level 35 MMOL/L (21-32) Anion Gap 4 mmol/L (5-15) Blood Urea Nitrogen 119 mg/dL (7-18) Creatinine 2.2 MG/DL (0.55-1.30) Estimat Glomerular Filtration Rate mL/min (>60) Glucose Level 918 MG/DL (74-106) Calcium Level 10.5 MG/DL (8.5-10.1) Total Bilirubin 0.3 MG/DL (0.2-1.0) Aspartate Amino Transf (AST/SGOT) 18 U/L (15-37) Alanine Aminotransferase (ALT/SGPT) 12 U/L (12-78) Alkaline Phosphatase 181 U/L (46-116) Total Creatine Kinase 210 U/L (26-308) Creatine Kinase MB 1.3 NG/ML (0.0-3.6) Creatine Kinase MB Relative Index 0.6 Troponin I 0.000 ng/mL (0.000-0.056) Pro-B-Type Natriuretic Peptide 670 pg/mL (0-125) Total Protein 10.1 G/DL (6.4-8.2) Albumin 2.0 G/DL (3.4-5.0) Globulin 8.1 g/dL Albumin/Globulin Ratio 0.2 (1.0-2.7) Lipase 522 U/L (73-393) Arterial Blood pH 7.369 (7.350-7.450) Arterial Blood Partial Pressure CO2 56.1 mmHg (35.0-45.0) Arterial Blood Partial Pressure O2 66.8 mmHg (75.0-100.0) Arterial Blood HCO3 31.6 mmol/L (22.0-26.0) Arterial Blood Oxygen Saturation 91.5 % (95-100) Arterial Blood Base Excess 5.3 (-2-2) Brock Test Positive Labs Test 02/18/19 12:50 White Blood Count 12.1 K/UL (4.8-10.8) Red Blood Count 3.84 M/UL (4.20-5.40) Hemoglobin 10.3 G/DL (12.0-16.0) Hematocrit 36.4 % (37.0-47.0) Mean Corpuscular Volume 95 FL (80-99) Mean Corpuscular Hemoglobin 26.7 PG (27.0-31.0) Mean Corpuscular Hemoglobin Concent 28.2 G/DL (32.0-36.0) Red Cell Distribution Width 18.2 % (11.6-14.8) Platelet Count 339 K/UL (150-450) Mean Platelet Volume 7.5 FL (6.5-10.1) Neutrophils (%) (Auto) 73.1 % (45.0-75.0) Lymphocytes (%) (Auto) 23.0 % (20.0-45.0) Monocytes (%) (Auto) 3.1 % (1.0-10.0) Eosinophils (%) (Auto) 0.5 % (0.0-3.0) Basophils (%) (Auto) 0.4 % (0.0-2.0) Prothrombin Time 10.8 SEC (9.30-11.50) Prothromb Time International Ratio 1.0 (0.9-1.1) Activated Partial Thromboplast Time 19 SEC (23-33) Urine Color Pale yellow Urine Appearance Cloudy Urine pH 8 (4.5-8.0) Urine Specific Chandler 1.010 (1.005-1.035) Urine Protein 3+ (NEGATIVE) Urine Glucose (UA) 4+ (NEGATIVE) Urine Ketones Negative (NEGATIVE) Urine Blood 3+ (NEGATIVE) Urine Nitrite Negative (NEGATIVE) Urine Bilirubin Negative (NEGATIVE) Urine Urobilinogen Normal MG/DL (0.0-1.0) Urine Leukocyte Esterase 3+ (NEGATIVE) Urine RBC 10-15 /HPF (0 - 2) Urine WBC Tntc /HPF (0 - 2) Urine Squamous Epithelial Cells Few /LPF (NONE/OCC) Urine Bacteria Few /HPF (NONE) Sodium Level 163 MMOL/L (136-145) Potassium Level 6.1 MMOL/L (3.5-5.1) Chloride Level 125 MMOL/L (98-107) Carbon Dioxide Level 35 MMOL/L (21-32) Anion Gap 4 mmol/L (5-15) Blood Urea Nitrogen 119 mg/dL (7-18) Creatinine 2.2 MG/DL (0.55-1.30) Estimat Glomerular Filtration Rate mL/min (>60) Glucose Level 918 MG/DL (74-106) Calcium Level 10.5 MG/DL (8.5-10.1) Total Bilirubin 0.3 MG/DL (0.2-1.0) Aspartate Amino Transf (AST/SGOT) 18 U/L (15-37) Alanine Aminotransferase (ALT/SGPT) 12 U/L (12-78) Alkaline Phosphatase 181 U/L (46-116) Total Creatine Kinase 210 U/L (26-308) Creatine Kinase MB 1.3 NG/ML (0.0-3.6) Creatine Kinase MB Relative Index 0.6 Troponin I 0.000 ng/mL (0.000-0.056) Pro-B-Type Natriuretic Peptide 670 pg/mL (0-125) Total Protein 10.1 G/DL (6.4-8.2) Albumin 2.0 G/DL (3.4-5.0) Globulin 8.1 g/dL Albumin/Globulin Ratio 0.2 (1.0-2.7) Lipase 522 U/L (73-393) Last Vital Signs Date Time Temp Pulse Resp B/P (MAP) Pulse Ox O2 Delivery O2 Flow Rate FiO2 02/18/19 12:08 98.1 101 24 101/82 (88) 98 Room Air Respiratory: adjust FIO2, CXR Critical Care - Objective Last 24 Hour Vital Signs Date Time Temp Pulse Resp B/P (MAP) Pulse Ox O2 Delivery O2 Flow Rate FiO2 02/18/19 12:08 98.1 101 24 101/82 (88) 98 Room Air Critical Care - Subjective ROS Limited/Unobtainable: No Condition: critical Minh Dunbar MD Feb 18, 2019 15:10
--- NOTE | 2019-02-18 15:55 | NUR ---
ED Nurse Note: RN and transporter accompanied pt to CT. Pt connected to portable air sampling and monitoring. VSS.
--- NOTE | 2019-02-18 16:05 | NUR ---
ED Nurse Note: RN and pt came back from CT. VSS.
--- NOTE | 2019-02-18 16:23 | NUR ---
ED Nurse Note: Dr Maldonado notified of BS re-check of critically high after an hour of insulin at 8 units/hr. ER MD ordered to increase to 10units/hour.
--- NOTE | 2019-02-18 16:36 | Diagnostic Imaging Report ---
Indication: Abdominal pain Technique: Spiral acquisitions obtained through the abdomen and pelvis. No oral contrast utilized, per emergency room physician request No IV contrast utilized, per referring physician request.. Multiplanar reconstructions were generated. Total dose length product 1029.91 mGycm. CTDIvol(s) 19.51 mGy. Dose reduction achieved using automated exposure control Comparison: None Findings: Normal appendix. There is a distal transverse colostomy with associated mucous fistula. There is marked diastases of the rectus abdominis tendon. This results in a broad-based ventral hernia protruding into the left lower quadrant subcutaneous fat which contains small bowel and descending colon. There is no evidence of obstruction related to such. No evidence of colonic diverticulosis or diverticulitis. There is an unusual finding of Isovue small diverticula of the terminal ileum. No small bowel distention. No free or loculated intraperitoneal gas or fluid is evident. There is a gastrostomy within the stomach in good position. The distal esophagus and duodenum are unremarkable. Calcifications are seen dependently within the right renal pelvis and a right lower pole calyx. There is a small calcification within the distal right ureter, although this is an equivocal finding. There is moderate right hydronephrosis and hydroureter. Multiple calculi are seen in the left renal pelvis and left lower pole infundibulum and calyx, largest measuring 15 mm long axis dimension. No left ureteral calculi are demonstrated. Multiple cysts are seen in the kidneys bilaterally. The bladder is markedly abnormal, with wall thickening and extensive stranding of the pericystic fat. There is gas within the bladder lumen, presumably related to the Agarwal catheter. However, gas bubbles are seen also at the periphery of the dome of the bladder and are quite possibly intramural. Lack of IV contrast limits assessment of the solid organs. A few calcifications are seen within the liver. There are cholecystectomy clips. No biliary ductal dilatation. The pancreas is unremarkable. The spleen contains several calcifications. The adrenals are unremarkable. No pelvic mass or adenopathy. The uterus is not visualized, presumed surgically absent. There is a right groin catheter which appears to be entering the common femoral artery with its tip in the external iliac artery. There is evidence of extensive decubitus ulceration in the retrosacral region and retrococcygeal region. There may be some coccygeal bone loss related to this. The included lung bases demonstrate atelectasis, scarring, and bronchiectasis bilaterally, left greater than right. There are dense aristeo calcifications in the left pulmonary hilum. The bones demonstrate degenerative spondylosis Impression: Marked abnormal bladder, with wall thickening, and extensive stranding of the pericystic fat. Gas within the bladder lumen is presumably related to Agarwal catheter. However, gas bubbles at the periphery of the dome of the bladder are concerning for intramural gas consistent with emphysematous cystitis. Positive for tiny right distal ureteral calculus resulting in moderate right hydronephrosis and hydroureter Bilateral intrarenal calculi Extensive retrosacral/retrococcygeal decubitus changes. Correlate with clinical findings. 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 Dunbar at the time of interpretation The CT scanner at [facility] is accredited by the [employer] and the scans are performed using protocols designed to limit radiation exposure to as low as reasonably achievable to attain images of sufficient resolution adequate for diagnostic evaluation.
--- NOTE | 2019-02-18 17:17 | NUR ---
ED Nurse Note: Pt sleeping on bed with no distress at this time. Respirations are even and non labored. Insulin drip still running at 10units/ml/hr. Will continue to assess.
--- NOTE | 2019-02-18 17:23 | NUR ---
ED Nurse Note: Dr Maldonado notified of BS recheck of 445. Orders to maintain insulin at 10 units/ml/hr.
--- NOTE | 2019-02-18 18:21 | NUR ---
ED Nurse Note: Tried to call for report to ICU and spoke to Montserrat CERVANTES and she said they can not take the pt/report at this time.
--- NOTE | 2019-02-18 19:14 | NUR ---
HAND-OFF: Report given to Anuradha CERVANTES.
[2019-02-18] MEDS ORDERED: Cefepime HCl 1 GM in D5W 55 ML IVPB SCH (20:00)
--- NOTE | 2019-02-18 20:08 | NUR ---
ED Nurse Note: Patient was admited to ICU due to ALOC. Patient was transfered to the unit via gurney, by ACLS protocol, with all belongings. AAO x0, VSS at this time. Patient's wound vac was tnaken off, wet to dry dressing was applyed. Patient was transfered with Insulin drip 10 units/hr, and 0.45% NS at rate 100 mL/hr.
[2019-02-18] MEDS ORDERED: MULTIVITAM9 MG/15 M1 GT (20:19)
[2019-02-18] MEDS ORDERED: ACETAMINOP160 MG/5 M GT (20:19)
[2019-02-18] MEDS ORDERED: ACETAMINOPHEN325 M1 GT (20:19)
--- NOTE | 2019-02-18 20:25 | NUR ---
NURSE NOTES: RECEIVED PATIENT FROM [facility]/ER NURSE VIA TOI. PATIENT RESPONSE TO TACTILE STIMULI, ON O2 2LPM VIA NC, [place] NOTED, O2 SATURATION OVER 96% NOTED, ABDOMEN SOFT, SEEN ABDOMINAL HERNIA TO RLL, G TUBE INTACT AND PATENT TO UPPER QUADRANTS, COLOSTOMY WITH DRAIN BAG TO RUL, YELLOW STOOL DRAINED, TLC TO RIGHT FEMORAL AND PERIPHERAL LINE TO LEFT FA 20G INTACT AND PATENT, F/C INTACT AND PATENT, YELLOW URINE WITH SEDIMENTS DRAINING GRAVITY, ONGOING REGULAR INSULIN DRIP 10UNIT/HR AND 1/2 NS AT 100ML/HR VIA TLC STATUS FROM ER, SACRAL OPEN WOUND, [id number] CM WITH UNDERMINING 12 AND 3 O'CLOCK 1CM, 6 O'CLOC 0.5CM, 9 O' CLOCK 5CM AND 10 TO 11 O'CLOCK 3CM NOTED, MADE LOWER BED POSITION, PROVIDED CALL LIGHT WITHIN REACH, ON BED ALARM, WILL CONTINUE TO MONITOR.
--- NOTE | 2019-02-18 21:40 | NUR ---
NURSE NOTES: CALLED DR. MORALES FOR CONSULTATION, LEFT MESSAGE AT 2117PM, CALLED DR. HUTCHINS FOR CONSULTATION, LEFT MESSAGE AT 2131PM ,CALLED DR. OH FOR CONSULTATION , LEFT MESSAGE AT 2133PM
--- NOTE | 2019-02-18 21:48 | Diagnostic Imaging Report ---
Indication: Shortness of breath Technique: One view of the chest Comparison: 9 hours earlier Findings: Lungs and pleural spaces remain clear. The heart size is upper limits of normal. Granulomatous calcifications are seen in the left lung, left pulmonary hilum, and mediastinum. No significant interim change Impression: No acute process
[2019-02-18] MEDS ORDERED: Insulin Human Regular 100units/ml 3ml IV PRN ×2 (22:00)
--- NOTE | 2019-02-18 22:10 | NUR ---
NURSE NOTES: ORAL CARE WAS DONE.
[2019-02-18] MEDS: Insulin Rate Change 1 Each MISC PRN (23:02)
[2019-02-18] MEDS: Albuterol/Ipratropium 3ml neb HHN SCH (23:50)
[2019-02-19] VITALS (27 sets, daily range): BP systolic 83–138; BP diastolic 7–93
--- NOTE | 2019-02-19 00:10 | NUR ---
NURSE NOTES: PATIENT ASLEEP STATUS, NON PAIN OR SOB NOTED.
[2019-02-19] MEDS: Insulin Rate Change 1 Each MISC PRN ×7 (01:59→08:06)
--- NOTE | 2019-02-19 02:10 | NUR ---
NURSE NOTES: MOUTH CARE WAS DONE, REPOSITIONED.
[2019-02-19] MEDS: Albuterol/Ipratropium 3ml neb HHN SCH ×6 (03:04→23:06)
--- NOTE | 2019-02-19 04:20 | NUR ---
NURSE NOTES: MORNING CARE AND ORAL CARE WAS DONE, COLOSTOMY BAG INTACT.
[2019-02-19 04:46] LABS: HEMATOCRIT 26.4 % (37.0-47.0); HEMOGLOBIN 7.6 G/DL (12.0-16.0); MEAN CORPUSCULAR VOLUME 91 FL (80-99); PLATELET COUNT 238 K/UL (150-450); RED CELL DISTRIBUTION WIDTH 17.7 % (11.6-14.8)
[2019-02-19 05:05] LABS: AMMONIA 19 umol/L (11-32)
[2019-02-19 05:24] LABS: % IRON SATURATION 11 % (15-50); CREATINE KINASE 164 U/L (26-308); GAMMA GLUTAMYL TRANSPEPTIDASE 47 U/L (5-85); IRON 14 ug/dL (50-175); PHOSPHORUS 2.6 MG/DL (2.5-4.9); TOTAL IRON BINDING CAPACITY 132 ug/dL (250-450)
[2019-02-19 05:34] LABS: ALANINE AMINOTRANSFERASE 10 U/L (12-78); ALBUMIN 1.5 G/DL (3.4-5.0); ALBUMIN/GLOBULIN RATIO 0.2 (1.0-2.7); ALKALINE PHOSPHATASE 91 U/L (46-116); ANION GAP 5 mmol/L (5-15); ASPARTATE AMINO TRANSFERASE 17 U/L (15-37); BILIRUBIN,TOTAL 0.2 MG/DL (0.2-1.0); BLOOD UREA NITROGEN 100 mg/dL (7-18); CALCIUM 8.9 MG/DL (8.5-10.1); CARBON DIOXIDE 31 MMOL/L (21-32); CHLORIDE 131 MMOL/L (98-107); CHOLESTEROL 114 MG/DL (< 200); CREATININE 1.4 MG/DL (0.55-1.30); FERRITIN 619 NG/ML (8-388); HDL CHOLESTEROL 47 MG/DL (40-60); TRIGLYCERIDES 85 MG/DL (30-150)
[2019-02-19 05:39] LABS: SODIUM 169 MMOL/L (136-145)
--- NOTE | 2019-02-19 06:17 | NUR ---
NURSE NOTES: CALLED DR. OH REGARDING REGARDING CRITICAL NA LEVEL 169, POTASSIUM 3.0 AT THIS AM RESULT THAT LEFT MESSAGE.
--- NOTE | 2019-02-19 07:30 | NUR ---
HAND-OFF: Report given to HELEN JAMES.
--- NOTE | 2019-02-19 07:31 | NUR ---
NURSE NOTES: Report received from Michele Dooley RN. Pt is sleeping in bed. Able to wake up and move upper extremities. Oriented to name only. 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 On N/C 2L. G-tube in RUQ and colostomy in LUQ in place. Brown pasty BM noted on colostomy bag. Agarwal in place draining to gravity.n Right femoral TLC and left FA G20 patent and asymptomatic. Insulin drip is running at 0.5 units/hr. 1/2NS is running at 100cc/hr. Bed in lowest position. Side rails up x3. Will resume plan of care.
[2019-02-19 08:42] LABS: BASOPHILS % (AUTO) 0.7 % (0.0-2.0); EOSINOPHILS % (AUTO) 0.7 % (0.0-3.0); HEMATOCRIT 27.4 % (37.0-47.0); LYMPHOCYTES % (AUTO) 31.1 % (20.0-45.0); MEAN CORPUSCULAR VOLUME 91 FL (80-99); MONOCYTES % (AUTO) 4.4 % (1.0-10.0); PLATELET COUNT 230 K/UL (150-450); RED BLOOD COUNT 3.03 M/UL (4.20-5.40); RED CELL DISTRIBUTION WIDTH 17.5 % (11.6-14.8); WHITE BLOOD COUNT 12.3 K/UL (4.8-10.8)
--- NOTE | 2019-02-19 09:02 | NUR ---
NURSE NOTES: Spoke with Dr Day on the phone. Updated him with pt's current condition. Orders received, noted, and carried out.
--- NOTE | 2019-02-19 09:26 | Consultation ---
Consult Note Consult Note asked to eval for renal failure- seen in ICU Examined discussed with nurses currently on insulin drip ER: Patient is sent in with complaints of change in mental status nursing facility is being contacted to obtain the specifics Ongoing however over the past 8 hours Patient's glucose was also too high to read at the nursing facility No other reports of vomiting or diarrhea Unknown regarding any fall or trauma Patient remains nonverbal and this does limit the history of present illness Coded Allergies: ALLOPURINOL (Verified Allergy, Unknown, 12/20/18) Hx Hypertension: Yes Hx COPD: Yes - SOB Hx Gastrointestinal Problems: Yes - Dysphagia, Gastrostomy, Colostomy 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 Underlying CKD Severe Dehydration Hyperglycemia- DM OOC A1c High Severe underlying Anemia Electrolyte imbalance UTI PEG Colostomy Severe HypoAlbuminemia Plan; D5W Hydrate Glucose check Albumin bolus as needed K mag Phos supplement as needed monitor lytes, and H&H Per orders Servando Cifuentes MD Feb 19, 2019 09:26
--- NOTE | 2019-02-19 09:36 | NUR ---
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 Bilateral nephrolithiasis. Scattered simple-appearing renal cortical cysts. Calcified left hilar lymph nodes. Coronary artery calcifications. Extensive degenerative changes throughout the visualized spine. IS: none Admitted to ICU ICU status DCP: Pending Hospital Stay
[2019-02-19] MEDS ORDERED: NS 275ml ONE (09:51)
[2019-02-19] MEDS ORDERED: Tubing IV Secondary IV ONE (09:51)
[2019-02-19] MEDS ORDERED: 1/2 NS 1000ml IV ONE (09:51)
[2019-02-19] MEDS: Levemir Flexpen SUBQ SCH ×2 (09:59→17:40)
--- NOTE | 2019-02-19 10:40 | NUR ---
RD ASSESSMENT & RECOMMENDATIONS SEE CARE ACTIVITY FOR COMPLETE ASSESSMENT DAILY ESTIMATED NEEDS: Needs based on Wound, DM 59kg adj 25-35 kcals/kg 7690-7350 total kcals 1.25-2 g protein/kg 74-118 g total protein 25-30 mL/kg 2627-0587 total fluid mLs NUTRITION DIAGNOSIS: 1) Increased kcal and pro needs r/t wound healing as evidenced by h/o stage 4 sacral wound. 2) Swallowing difficulty r/t dysphagia as evidenced by pt is PEG dep. 3) Altered nutrition related lab values r/t clinical status, dehydration as evidenced by critically elev NA (169), elev BUN (100), elev A1C 10.1. ENTERAL NUTRITION RECOMMENDATIONS: Glucerna 1.2 @ 60ml/hr x 24 hrs + Prosource 1pkt QD to provide 1440ml, 1728kcal, 86g + 11g prot, 1159ml free water - As medically able, rec to start GT feeds of Glucerna 1.2 @20ml/hr. - Advance as tolerated 15ml/hr q4-6 hrs to goal - Add Prosource 1pkt daily to better meet protein needs - Flush per , HOB over 30 degrees ------- ADDITIONAL RECOMMENDATIONS: 1) Feed as medically able 2) WOUND CARE: add LORENZO BID + Vit C 250mg BID + ZN SO4 220mg daily x 10 days 3) Maintain calibrated bed scale wts for eval 4) Monitor hydration status closely
--- NOTE | 2019-02-19 10:48 | Diagnostic Imaging Report ---
Indication: Chest pain Technique: One view of the chest Comparison: 12/27/2018 Findings: Lungs are currently clear. No infiltrates, effusions, congestion. Previously demonstrated left-sided opacities have cleared. Calcified granuloma again projects in the left upper lobe. The heart size is upper limits normal. Calcified granulomata are also seen in the left pulmonary hilum, mediastinum, and aortopulmonary window. Previously demonstrated endotracheal tube and right jugular central venous catheter are no longer evident Impression: No acute process
--- NOTE | 2019-02-19 11:00 | NUR ---
NURSE NOTES: P200 mattress applied and repositioned pt. Pt still lethargic but able to wake up and talk to pain. Dr Morrow came to see the patient for wound. Will continue to monitor.
[2019-02-19] MEDS: NovoLOG Insulin Flexpen SUBQ SCH ×3 (11:34→20:23)
--- NOTE | 2019-02-19 11:40 | Consultation ---
History of Present Illness General Date patient seen: Feb 19, 2019 Chief Complaint: Altered Level of Consciousness Present Illness HPI This is a 83-year-old female well-known to me from prior admission who [facility] with altered mental status, abnormal labs, leukocytosis, sepsis. Patient admitted to the intensive care unit for care and management. Patient with multiple medical comorbidities and requiring needs extensive care. Furthermore patient with known history of stage IV sacral decubitus ulcers requiring care and debridement in the past. Surgery called to evaluate and assist with care. Patient seen, patient evaluate, chart reviewed. Allergies: Coded Allergies: ALLOPURINOL (Verified Allergy, Unknown, 12/20/18) Medication History Scheduled Acetaminophen 160MG/5ML* (Acetaminophen*), 20 ML GT DAILY, (Reported) Amino Acids/Protein Hydrolys (Pro-Stat Liquid), 30 ML GT THREE TIMES A DAY, ( Reported) Ascorbic Acid* (Ascorbic Acid*), 500 MG GT DAILY, (Reported) Citric Acid/Sodium Citrate (Sod Citrate-Citric Acid Soln), 30 ML GT BID, ( Reported) Folic Acid* (Folic Acid*), 1 MG GT DAILY, (Reported) Heparin Sod (Porcine) (Heparin Sodium*), 5,000 UNITS SUBQ EVERY 12 HOURS, ( Reported) Multivits W-Min/Ferrous Gluc (Multivitamin-Mineral Liquid), 15 ML GT DAILY, ( Reported) Naph,Mb-Db/K Ph,Mbdb (Phos-Nak Packet), 1 EACH GT TID, (Reported) Risperidone (Risperidone), 0.25 MG GT HS, (Reported) Zinc Sulfate (Zinc Sulfate*), 220 MG GT DAILY, (Reported) Scheduled PRN Acetaminophen* (Acetaminophen 325MG Tablet*), 325 MG GT Q4H PRN for Mild Pain/ Temp > 100.5, (Reported) Hydralazine Hcl* (Hydralazine Hcl*), 10 MG ORAL Q4HR PRN for For High Blood Pressure, (Reported) Ondansetron* (Zofran*), 4 MG GT Q4HR PRN for Nausea & Vomiting, (Reported) Discontinued Medications Acetaminophen* (Acetaminophen 325MG Tablet*), 325 MG GT Q4H PRN for Mild Pain/ Temp > 100.5, (Reported) Discontinued Reason: Prescription changed [centrum liquid], 15 ML GT DAILY, (Reported) Discontinued Reason: Prescription changed Patient History Limited by: medical condition History Provided By: Medical Record, PMD Healthcare decision maker Resuscitation status Full Code Advanced Directive on File Past Medical/Surgical History Past Medical/Surgical History: (1) Hypotension (2) Renal failure (ARF), acute on chronic (3) Anemia (4) Altered level of consciousness (5) PEG (percutaneous endoscopic gastrostomy) status (6) Colostomy status Review of Systems ROS Narrative Patient unable to provide any history given medical condition Physical Exam General Appearance: mild distress Lines, tubes and drains: other HEENT: mucous membranes moist Neck: normal inspection Respiratory/Chest: decreased breath sounds Cardiovascular/Chest: regular rhythm Abdomen: soft, no organomegaly, no mass, feeding tube Extremities: other Skin Exam: other Neurologic: unresponsiveness Last 24 Hour Vital Signs Date Time Temp Pulse Resp B/P (MAP) Pulse Ox O2 Delivery O2 Flow Rate FiO2 02/19/19 11:15 103 18 100 Nasal Cannula 2.0 28 02/19/19 11:00 104 17 103/43 (63) 100 02/19/19 10:57 105 20 100 Nasal Cannula 2.0 28 02/19/19 10:00 106 20 118/45 (69) 100 02/19/19 09:12 99 02/19/19 09:00 100 17 100/50 (67) 100 02/19/19 08:00 98.5 105 24 96/39 (58) 98 02/19/19 08:00 Nasal Cannula 2.0 02/19/19 08:00 2.0 02/19/19 07:31 101 20 100 Nasal Cannula 2.0 28 02/19/19 07:28 102 20 100 Nasal Cannula 2.0 28 02/19/19 07:27 100 Nasal Cannula 2.0 28 02/19/19 07:25 101 20 100 Nasal Cannula 2.0 28 02/19/19 07:00 103 17 98/42 (60) 98 02/19/19 06:30 101 17 110/46 (67) 100 02/19/19 06:00 97 19 83/46 (58) 100 02/19/19 05:00 99 19 125/43 (70) 99 02/19/19 04:30 102 18 110/51 (70) 99 02/19/19 04:00 Nasal Cannula 2.0 02/19/19 04:00 2.0 02/19/19 04:00 97.7 98 17 87/46 (60) 100 02/19/19 03:48 102 02/19/19 03:19 28 02/19/19 03:19 103 18 100 Nasal Cannula 2.0 28 02/19/19 03:04 97 18 98 Nasal Cannula 2.0 28 02/19/19 03:00 87 19 113/93 (100) 98 02/19/19 02:00 87 20 103/36 (58) 100 02/19/19 01:00 98 20 93/45 (61) 100 02/19/19 00:03 102 18 100 Nasal Cannula 2.0 28 02/19/19 00:00 Nasal Cannula 2.0 02/19/19 00:00 2.0 02/19/19 00:00 97.5 92 20 110/54 (72) 100 02/18/19 23:51 85 02/18/19 23:51 101 24 100 Nasal Cannula 2.0 28 02/18/19 23:51 28 02/18/19 23:00 87 20 88/60 (69) 98 02/18/19 22:15 94 24 109/69 (82) 99 02/18/19 22:00 94 22 113/62 (79) 98 02/18/19 21:45 94 21 102/53 (69) 96 02/18/19 21:30 94 19 105/49 (67) 99 02/18/19 21:30 105/49 02/18/19 21:15 94 19 99/40 (59) 99 02/18/19 21:00 94 20 95/52 (66) 97 02/18/19 20:45 94 17 99/64 (76) 98 02/18/19 20:35 96 02/18/19 20:30 97.6 192/95 (127) 02/18/19 20:25 Nasal Cannula 2.0 02/18/19 20:08 98.1 87 18 98/82 100 Nasal Cannula 2.0 02/18/19 18:37 98.1 87 17 107/52 100 Room Air 02/18/19 17:30 98.4 85 20 102/40 100 Room Air 02/18/19 16:30 98.1 91 24 119/49 100 Room Air 02/18/19 15:33 98.3 98 28 92/61 98 Room Air 02/18/19 14:20 98.2 87 22 78/50 97 Room Air 02/18/19 13:35 98.5 90 16 122/83 100 Room Air 02/18/19 12:17 105 22 Room Air 02/18/19 12:17 98.5 89 22 118/70 99 Room Air 02/18/19 12:08 98.1 101 24 101/82 (88) 98 Room Air Intake and Output 02/18/19 02/19/19 19:00 07:00 Intake Total 2330.0 ml 711.4 ml Output Total 0 ml 845 ml Balance 2330.0 ml -133.6 ml Intake Oral 0 ml IV Total 2330.0 ml 711.4 ml Output Urine Total 0 ml 595 ml Stool Total 250 ml Laboratory Tests Test 02/18/19 12:50 02/18/19 14:18 02/19/19 03:55 02/19/19 08:15 White Blood Count 12.1 K/UL (4.8-10.8) H 12.0 K/UL (4.8-10.8) H 12.3 K/UL (4.8-10.8) H Red Blood Count 3.84 M/UL (4.20-5.40) L 2.90 M/UL (4.20-5.40) L 3.03 M/UL (4.20-5.40) L Hemoglobin 10.3 G/DL (12.0-16.0) L 7.6 G/DL (12.0-16.0) L 8.0 G/DL (12.0-16.0) L Hematocrit 36.4 % (37.0-47.0) L 26.4 % (37.0-47.0) L 27.4 % (37.0-47.0) L Mean Corpuscular Volume 95 FL (80-99) 91 FL (80-99) 91 FL (80-99) Mean Corpuscular Hemoglobin 26.7 PG (27.0-31.0) L 26.3 PG (27.0-31.0) L 26.5 PG (27.0-31.0) L Mean Corpuscular Hemoglobin Concent 28.2 G/DL (32.0-36.0) L 28.9 G/DL (32.0-36.0) L 29.3 G/DL (32.0-36.0) L Red Cell Distribution Width 18.2 % (11.6-14.8) H 17.7 % (11.6-14.8) H 17.5 % (11.6-14.8) H Platelet Count 339 K/UL (150-450) 238 K/UL (150-450) 230 K/UL (150-450) Mean Platelet Volume 7.5 FL (6.5-10.1) 8.3 FL (6.5-10.1) 8.5 FL (6.5-10.1) Neutrophils (%) (Auto) 73.1 % (45.0-75.0) % (45.0-75.0) 63.0 % (45.0-75.0) Lymphocytes (%) (Auto) 23.0 % (20.0-45.0) % (20.0-45.0) 31.1 % (20.0-45.0) Monocytes (%) (Auto) 3.1 % (1.0-10.0) % (1.0-10.0) 4.4 % (1.0-10.0) Eosinophils (%) (Auto) 0.5 % (0.0-3.0) % (0.0-3.0) 0.7 % (0.0-3.0) Basophils (%) (Auto) 0.4 % (0.0-2.0) % (0.0-2.0) 0.7 % (0.0-2.0) Prothrombin Time 10.8 SEC (9.30-11.50) Prothromb Time International Ratio 1.0 (0.9-1.1) Activated Partial Thromboplast Time 19 SEC (23-33) L Urine Color Pale yellow Urine Appearance Cloudy Urine pH 8 (4.5-8.0) Urine Specific [place] 1.010 (1.005-1.035) Urine Protein 3+ (NEGATIVE) H Urine Glucose (UA) 4+ (NEGATIVE) H Urine Ketones Negative (NEGATIVE) Urine Blood 3+ (NEGATIVE) H Urine Nitrite Negative (NEGATIVE) Urine Bilirubin Negative (NEGATIVE) Urine Urobilinogen Normal MG/DL (0.0-1.0) Urine Leukocyte Esterase 3+ (NEGATIVE) H Urine RBC 10-15 /HPF (0 - 2) H Urine WBC Tntc /HPF (0 - 2) H Urine Squamous Epithelial Cells Few /LPF (NONE/OCC) Urine Bacteria Few /HPF (NONE) Sodium Level 163 MMOL/L (136-145) *H 169 MMOL/L (136-145) *H Potassium Level 6.1 MMOL/L (3.5-5.1) *H 3.0 MMOL/L (3.5-5.1) #L Chloride Level 125 MMOL/L (98-107) H 131 MMOL/L (98-107) H Carbon Dioxide Level 35 MMOL/L (21-32) H 31 MMOL/L (21-32) Anion Gap 4 mmol/L (5-15) L 5 mmol/L (5-15) Blood Urea Nitrogen 119 mg/dL (7-18) H 100 mg/dL (7-18) H Creatinine 2.2 MG/DL (0.55-1.30) H 1.4 MG/DL (0.55-1.30) H Estimat Glomerular Filtration Rate mL/min (>60) mL/min (>60) Glucose Level 918 MG/DL (74-106) *H 130 MG/DL (74-106) #H Calcium Level 10.5 MG/DL (8.5-10.1) H 8.9 MG/DL (8.5-10.1) Total Bilirubin 0.3 MG/DL (0.2-1.0) 0.2 MG/DL (0.2-1.0) Aspartate Amino Transf (AST/SGOT) 18 U/L (15-37) 17 U/L (15-37) Alanine Aminotransferase (ALT/SGPT) 12 U/L (12-78) 10 U/L (12-78) L Alkaline Phosphatase 181 U/L (46-116) H 91 U/L (46-116) Total Creatine Kinase 210 U/L (26-308) 164 U/L (26-308) Creatine Kinase MB 1.3 NG/ML (0.0-3.6) Creatine Kinase MB Relative Index 0.6 Troponin I 0.000 ng/mL (0.000-0.056) 0.000 ng/mL (0.000-0.056) Pro-B-Type Natriuretic Peptide 670 pg/mL (0-125) H 612 pg/mL (0-125) H Total Protein 10.1 G/DL (6.4-8.2) H 7.9 G/DL (6.4-8.2) Albumin 2.0 G/DL (3.4-5.0) L 1.5 G/DL (3.4-5.0) L Globulin 8.1 g/dL 6.4 g/dL Albumin/Globulin Ratio 0.2 (1.0-2.7) L 0.2 (1.0-2.7) L Lipase 522 U/L (73-393) H 217 U/L (73-393) Arterial Blood pH 7.369 (7.350-7.450) Arterial Blood Partial Pressure CO2 56.1 mmHg (35.0-45.0) *H Arterial Blood Partial Pressure O2 66.8 mmHg (75.0-100.0) L Arterial Blood HCO3 31.6 mmol/L (22.0-26.0) H Arterial Blood Oxygen Saturation 91.5 % (95-100) L Arterial Blood Base Excess 5.3 (-2-2) H Brock Test Positive Differential Total Cells Counted 100 Neutrophils % (Manual) 70 % (45-75) Lymphocytes % (Manual) 25 % (20-45) Monocytes % (Manual) 2 % (1-10) Eosinophils % (Manual) 3 % (0-3) Basophils % (Manual) 0 % (0-2) Band Neutrophils 0 % (0-8) Platelet Estimate Adequate Platelet Morphology Normal Hypochromasia 1+ Anisocytosis 1+ Hemoglobin A1c 10.1 % (4.3-6.0) H Uric Acid 6.0 MG/DL (2.6-7.2) Phosphorus Level 2.6 MG/DL (2.5-4.9) Magnesium Level 2.0 MG/DL (1.8-2.4) Iron Level 14 ug/dL (50-175) L Total Iron Binding Capacity 132 ug/dL (250-450) L Percent Iron Saturation 11 % (15-50) L Unsaturated Iron Binding 118 ug/dL (112-346) Ferritin 619 NG/ML (8-388) H Gamma Glutamyl Transpeptidase 47 U/L (5-85) Ammonia 19 umol/L (11-32) C-Reactive Protein, Quantitative 33.7 mg/dL (0.00-0.90) H Triglycerides Level 85 MG/DL (30-150) Cholesterol Level 114 MG/DL (< 200) LDL Cholesterol 61 mg/dL (<100) HDL Cholesterol 47 MG/DL (40-60) Cholesterol/HDL Ratio 2.4 (3.3-4.4) L Vitamin B12 Level 1526 PG/ML (193-986) H Folate 81.1 NG/ML (8.6-58.9) H Thyroid Stimulating Hormone (TSH) 0.697 uiU/mL (0.358-3.740) Random Vancomycin Level 16.9 ug/mL Acetone Level Negative (NEGATIVE) Microbiology Date/Time Source Procedure Growth Status 02/18/19 12:50 Urine,Clean Catch Urine Culture - Preliminary Gram Negative Bacillus 1 Resulted 02/18/19 20:45 Sacral Wound Gram Stain - Final Resulted 02/18/19 20:45 Sacral Wound Wound Culture Pending Resulted Height (Feet): 5 Height (Inches): 7.00 Weight (Pounds): 147 Medications Current Medications Medications (Trade) Dose Ordered Sig/Nora Route PRN Reason Start Time Stop Time Status Last Admin Dose Admin Albuterol/ Ipratropium (Albuterol/ Ipratropium) 3 ml Q4HRT HHN 02/18/19 23:00 02/23/19 22:59 02/19/19 10:57 Cefepime HCl 1 gm/ Dextrose 55 ml @ 110 mls/hr Q24H IVPB 02/19/19 20:00 02/25/19 19:59 Chlorhexidine Gluconate (Valentina-Hex 2%) 1 applic DAILY@2000 TOPIC 02/19/19 20:00 03/21/19 19:59 Dextrose 1,000 ml @ 100 mls/hr Q10H IV 02/19/19 07:09 03/21/19 07:08 02/19/19 08:06 Dextrose (Dextrose 50%) 25 ml Q30M PRN IV Hypoglycemia 02/19/19 09:00 03/21/19 08:59 Dextrose (Dextrose 50%) 50 ml Q30M PRN IV Hypoglycemia 02/19/19 09:00 03/21/19 08:59 Insulin Aspart (NovoLOG) BEFORE MEALS AND HS SUBQ 02/19/19 11:30 03/21/19 11:29 02/19/19 11:34 Insulin Detemir (Levemir) 6 units BID SUBQ 02/19/19 09:00 03/21/19 08:59 02/19/19 09:59 Norepinephrine Bitartrate 4 mg/ Dextrose 250 ml @ 0 mls/hr Q24H IV 02/18/19 21:30 03/20/19 21:29 Potassium Chloride 100 ml @ 50 mls/hr Q2H IVPB 02/19/19 08:00 02/19/19 11:59 02/19/19 10:07 Vancomycin HCl (Vanco rx to dose) 1 ea DAILY PRN MISC Per rx protocol 02/19/19 09:00 03/20/19 17:14 Vancomycin HCl 750 mg/Sodium Chloride 275 ml @ 183.333 mls/hr Q24H IVPB 02/19/19 18:00 02/24/19 17:59 Assessment/Plan Problem List: (1) Decubitus ulcer of sacral region, stage 4 Assessment & Plan: Pt presented on admission with full thickness stage 4 Sacral Pressure Injury with undermining. Bone is palpable. Base of has beefy red granulation with scattered small purple areas. No odor noted .Scant serous exudate noted . Edges pink and flat with some sloth. DTPI noted to lateral R foot. .Base of wound purple and fluctuant in center with surrounding maroon discoloration Non-blanchable erythema with fluctuance noted to posterior and medial R heel. L heel boggy but blanchable. Tx.Plan: Cleanse Sacral wound with Saline. Loosely pack with Hydrogel Impregnated Kerlix. Cover with ABD pads and secure with Paper Tape or Tegaderm Daily and prn. Apply Cavilon Skin Barrier to R and Heel and lateral R heel. Ciover with Optifoam drsg. Change every 7 days and PRN. Apply Cavilon Skin Barrier to L heel. Cover with Optifoam drsg. Change every 7 days and prn. APM/VIJI Mattress Overlay. Reposition at least every 2hours or as tolerated. Off-load heels with Pillow. ICD Codes: L89.154 - Pressure ulcer of sacral region, stage 4 SNOMED: 452390553, [id number] (2) Sepsis Assessment & Plan: tachycardia, leukocytosis, anemia, abnormal labs, altered status wound evaluate and tho not as optimal as prior unlikely etiology of infection IV abx as per ID care orders as below trend labs will follow with recs thank you ICD Codes: A41.9 - Sepsis, unspecified organism SNOMED: 88803479 Mauro Morrow Feb 19, 2019 11:40
--- NOTE | 2019-02-19 11:55 | GI Initial Consult Note ---
History of Present Illness General Date patient seen: Feb 19, 2019 Time patient seen: 11:55 Reason for Hospitalization: Altered Level of Consciousness Referring physician: BELINDA DORADO Reason for Consultation: GT MANAGEMENT Present Illness HPI Patient is sent in with complaints of change in mental status nursing facility is being contacted to obtain the specifics Ongoing however over the past 8 hours Patient's glucose was also too high to read at the nursing facility No other reports of vomiting or diarrhea Unknown regarding any fall or trauma Patient remains nonverbal and this does limit the history of present illness GI consulted for GT management. ROS limited, all information obtained from medical record. Pt seen, awake NAD with no active s/sx of N/V/D. GT and colostomy dependent. 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 Labs reviewed; Hgb 8.0, Na 169, K of 3.0. Home Meds Reported Medications Acetaminophen* (ACETAMINOPHEN 325MG TABLET*) 325 Mg Tablet, 325 MG GT Q4H PRN for Mild Pain/Temp > 100.5, TAB 02/18/19 Acetaminophen 160MG/5ML* (ACETAMINOPHEN*) 160 Mg/5 Ml Elixir, 20 ML GT DAILY for PAIN MANAGEMENT, ML 02/18/19 Multivits W-Min/Ferrous Gluc (MULTIVITAMIN-MINERAL LIQUID) 9 Mg/15 Ml Liquid, 15 ML GT DAILY, ML 02/18/19 Ondansetron* (ZOFRAN*) 4 Mg Tablet, 4 MG GT Q4HR PRN for Nausea & Vomiting, TAB 12/20/18 Zinc Sulfate (ZINC SULFATE*) 220 Mg Capsule, 220 MG GT DAILY, CAP 0 Refills 12/20/18 Citric Acid/Sodium Citrate (SOD CITRATE-CITRIC ACID SOLN) 15 Ml Solution, 30 ML GT BID 12/20/18 Risperidone (RISPERIDONE) 0.25 Mg Tablet, 0.25 MG GT HS, TAB 12/20/18 Amino Acids/Protein Hydrolys (PRO-STAT LIQUID) 30 Ml Liquid.pkt, 30 ML GT THREE TIMES A DAY, ML 12/20/18 Naph,Mb-Db/K Ph,Mbdb (PHOS-NAK PACKET) 1 Each Powd.pack, 1 EACH GT TID, PACK 12/20/18 Hydralazine Hcl* (HYDRALAZINE HCL*) 10 Mg Tablet, 10 MG ORAL Q4HR PRN for For High Blood Pressure, TAB FOR SBP>160 12/20/18 Heparin Sod (Porcine) (HEPARIN SODIUM*) 5 000/1 Ml Vial, 5000 UNITS SUBQ EVERY 12 HOURS, VIAL 12/20/18 Folic Acid* (FOLIC ACID*) 1 Mg Tablet, 1 MG GT DAILY, TAB 12/20/18 Ascorbic Acid* (ASCORBIC ACID*) 500 Mg Tablet, 500 MG GT DAILY, TAB 12/20/18 Discontinued Reported Medications Acetaminophen* (ACETAMINOPHEN 325MG TABLET*) 325 Mg Tablet, 325 MG GT Q4H PRN for Mild Pain/Temp > 100.5, TAB 12/20/18 [centrum liquid] No Conflict Check, 15 ML GT DAILY 12/20/18 Med list reviewed/reconciled: Yes Allergies: Coded Allergies: ALLOPURINOL (Verified Allergy, Unknown, 12/20/18) Patient History Limited by: medical condition History Provided By: Medical Record PMH Narrative Limited by: medical condition Past Medical History: see triage record Reviewed Nursing Documentation: PMH: Agreed; PSxH: Agreed Nursing Documentation-PMH Hx Hypertension: Yes Hx COPD: Yes - SOB Hx Cancer: No Hx Gastrointestinal Problems: Yes - Dysphagia, Gastrostomy, Colostomy Hx Cerebrovascular Accident: Yes - atherosclerosis of aorta, anemia Review of Systems All Other Systems: limited Physical Exam Vital Signs Date Time Temp Pulse Resp B/P (MAP) Pulse Ox O2 Delivery O2 Flow Rate FiO2 02/18/19 12:08 98.1 101 24 101/82 (88) 98 Room Air 02/18/19 20:08 2.0 02/18/19 23:51 28 Sp02 EP Interpretation: reviewed, normal Labs Laboratory Tests Test 02/18/19 12:50 02/18/19 14:18 02/19/19 03:55 02/19/19 08:15 White Blood Count 12.1 K/UL (4.8-10.8) H 12.0 K/UL (4.8-10.8) H 12.3 K/UL (4.8-10.8) H Red Blood Count 3.84 M/UL (4.20-5.40) L 2.90 M/UL (4.20-5.40) L 3.03 M/UL (4.20-5.40) L Hemoglobin 10.3 G/DL (12.0-16.0) L 7.6 G/DL (12.0-16.0) L 8.0 G/DL (12.0-16.0) L Hematocrit 36.4 % (37.0-47.0) L 26.4 % (37.0-47.0) L 27.4 % (37.0-47.0) L Mean Corpuscular Volume 95 FL (80-99) 91 FL (80-99) 91 FL (80-99) Mean Corpuscular Hemoglobin 26.7 PG (27.0-31.0) L 26.3 PG (27.0-31.0) L 26.5 PG (27.0-31.0) L Mean Corpuscular Hemoglobin Concent 28.2 G/DL (32.0-36.0) L 28.9 G/DL (32.0-36.0) L 29.3 G/DL (32.0-36.0) L Red Cell Distribution Width 18.2 % (11.6-14.8) H 17.7 % (11.6-14.8) H 17.5 % (11.6-14.8) H Platelet Count 339 K/UL (150-450) 238 K/UL (150-450) 230 K/UL (150-450) Mean Platelet Volume 7.5 FL (6.5-10.1) 8.3 FL (6.5-10.1) 8.5 FL (6.5-10.1) Neutrophils (%) (Auto) 73.1 % (45.0-75.0) % (45.0-75.0) 63.0 % (45.0-75.0) Lymphocytes (%) (Auto) 23.0 % (20.0-45.0) % (20.0-45.0) 31.1 % (20.0-45.0) Monocytes (%) (Auto) 3.1 % (1.0-10.0) % (1.0-10.0) 4.4 % (1.0-10.0) Eosinophils (%) (Auto) 0.5 % (0.0-3.0) % (0.0-3.0) 0.7 % (0.0-3.0) Basophils (%) (Auto) 0.4 % (0.0-2.0) % (0.0-2.0) 0.7 % (0.0-2.0) Prothrombin Time 10.8 SEC (9.30-11.50) Prothromb Time International Ratio 1.0 (0.9-1.1) Activated Partial Thromboplast Time 19 SEC (23-33) L Urine Color Pale yellow Urine Appearance Cloudy Urine pH 8 (4.5-8.0) Urine Specific [place] 1.010 (1.005-1.035) Urine Protein 3+ (NEGATIVE) H Urine Glucose (UA) 4+ (NEGATIVE) H Urine Ketones Negative (NEGATIVE) Urine Blood 3+ (NEGATIVE) H Urine Nitrite Negative (NEGATIVE) Urine Bilirubin Negative (NEGATIVE) Urine Urobilinogen Normal MG/DL (0.0-1.0) Urine Leukocyte Esterase 3+ (NEGATIVE) H Urine RBC 10-15 /HPF (0 - 2) H Urine WBC Tntc /HPF (0 - 2) H Urine Squamous Epithelial Cells Few /LPF (NONE/OCC) Urine Bacteria Few /HPF (NONE) Sodium Level 163 MMOL/L (136-145) *H 169 MMOL/L (136-145) *H Potassium Level 6.1 MMOL/L (3.5-5.1) *H 3.0 MMOL/L (3.5-5.1) #L Chloride Level 125 MMOL/L (98-107) H 131 MMOL/L (98-107) H Carbon Dioxide Level 35 MMOL/L (21-32) H 31 MMOL/L (21-32) Anion Gap 4 mmol/L (5-15) L 5 mmol/L (5-15) Blood Urea Nitrogen 119 mg/dL (7-18) H 100 mg/dL (7-18) H Creatinine 2.2 MG/DL (0.55-1.30) H 1.4 MG/DL (0.55-1.30) H Estimat Glomerular Filtration Rate mL/min (>60) mL/min (>60) Glucose Level 918 MG/DL (74-106) *H 130 MG/DL (74-106) #H Calcium Level 10.5 MG/DL (8.5-10.1) H 8.9 MG/DL (8.5-10.1) Total Bilirubin 0.3 MG/DL (0.2-1.0) 0.2 MG/DL (0.2-1.0) Aspartate Amino Transf (AST/SGOT) 18 U/L (15-37) 17 U/L (15-37) Alanine Aminotransferase (ALT/SGPT) 12 U/L (12-78) 10 U/L (12-78) L Alkaline Phosphatase 181 U/L (46-116) H 91 U/L (46-116) Total Creatine Kinase 210 U/L (26-308) 164 U/L (26-308) Creatine Kinase MB 1.3 NG/ML (0.0-3.6) Creatine Kinase MB Relative Index 0.6 Troponin I 0.000 ng/mL (0.000-0.056) 0.000 ng/mL (0.000-0.056) Pro-B-Type Natriuretic Peptide 670 pg/mL (0-125) H 612 pg/mL (0-125) H Total Protein 10.1 G/DL (6.4-8.2) H 7.9 G/DL (6.4-8.2) Albumin 2.0 G/DL (3.4-5.0) L 1.5 G/DL (3.4-5.0) L Globulin 8.1 g/dL 6.4 g/dL Albumin/Globulin Ratio 0.2 (1.0-2.7) L 0.2 (1.0-2.7) L Lipase 522 U/L (73-393) H 217 U/L (73-393) Arterial Blood pH 7.369 (7.350-7.450) Arterial Blood Partial Pressure CO2 56.1 mmHg (35.0-45.0) *H Arterial Blood Partial Pressure O2 66.8 mmHg (75.0-100.0) L Arterial Blood HCO3 31.6 mmol/L (22.0-26.0) H Arterial Blood Oxygen Saturation 91.5 % (95-100) L Arterial Blood Base Excess 5.3 (-2-2) H Brock Test Positive Differential Total Cells Counted 100 Neutrophils % (Manual) 70 % (45-75) Lymphocytes % (Manual) 25 % (20-45) Monocytes % (Manual) 2 % (1-10) Eosinophils % (Manual) 3 % (0-3) Basophils % (Manual) 0 % (0-2) Band Neutrophils 0 % (0-8) Platelet Estimate Adequate Platelet Morphology Normal Hypochromasia 1+ Anisocytosis 1+ Hemoglobin A1c 10.1 % (4.3-6.0) H Uric Acid 6.0 MG/DL (2.6-7.2) Phosphorus Level 2.6 MG/DL (2.5-4.9) Magnesium Level 2.0 MG/DL (1.8-2.4) Iron Level 14 ug/dL (50-175) L Total Iron Binding Capacity 132 ug/dL (250-450) L Percent Iron Saturation 11 % (15-50) L Unsaturated Iron Binding 118 ug/dL (112-346) Ferritin 619 NG/ML (8-388) H Gamma Glutamyl Transpeptidase 47 U/L (5-85) Ammonia 19 umol/L (11-32) C-Reactive Protein, Quantitative 33.7 mg/dL (0.00-0.90) H Triglycerides Level 85 MG/DL (30-150) Cholesterol Level 114 MG/DL (< 200) LDL Cholesterol 61 mg/dL (<100) HDL Cholesterol 47 MG/DL (40-60) Cholesterol/HDL Ratio 2.4 (3.3-4.4) L Vitamin B12 Level 1526 PG/ML (193-986) H Folate 81.1 NG/ML (8.6-58.9) H Thyroid Stimulating Hormone (TSH) 0.697 uiU/mL (0.358-3.740) Random Vancomycin Level 16.9 ug/mL Acetone Level Negative (NEGATIVE) General Appearance: no apparent distress EENT: PERRL/EOMI, normal ENT inspection Neck: supple Respiratory: normal breath sounds, no respiratory distress Cardiovascular: normal rate Gastrointestinal: non tender, normal bowel sounds, non-distended, gt Rectal: deferred Genitourinary: no CVA tenderness Musculoskeletal: normal inspection, back normal Neurologic: alert Skin: normal inspection, normal color, no rash, warm/dry, palpation normal, well hydrated Lymphatic: normal inspection, no adenopathy Current Medications Current Medications Medications (Trade) Dose Ordered Sig/Nora Route PRN Reason Start Time Stop Time Status Last Admin Dose Admin Albuterol/ Ipratropium (Albuterol/ Ipratropium) 3 ml Q4HRT N 02/18/19 23:00 02/23/19 22:59 02/19/19 10:57 Cefepime HCl 1 gm/ Dextrose 55 ml @ 110 mls/hr Q24H IVPB 02/19/19 20:00 02/25/19 19:59 Chlorhexidine Gluconate (Valentina-Hex 2%) 1 applic DAILY@2000 TOPIC 02/19/19 20:00 03/21/19 19:59 Dextrose 1,000 ml @ 100 mls/hr Q10H IV 02/19/19 07:09 03/21/19 07:08 02/19/19 08:06 Dextrose (Dextrose 50%) 25 ml Q30M PRN IV Hypoglycemia 02/19/19 09:00 03/21/19 08:59 Dextrose (Dextrose 50%) 50 ml Q30M PRN IV Hypoglycemia 02/19/19 09:00 03/21/19 08:59 Insulin Aspart (NovoLOG) BEFORE MEALS AND HS SUBQ 02/19/19 11:30 03/21/19 11:29 02/19/19 11:34 Insulin Detemir (Levemir) 6 units BID SUBQ 02/19/19 09:00 03/21/19 08:59 02/19/19 09:59 Norepinephrine Bitartrate 4 mg/ Dextrose 250 ml @ 0 mls/hr Q24H IV 02/18/19 21:30 03/20/19 21:29 Potassium Chloride 100 ml @ 50 mls/hr Q2H IVPB 02/19/19 08:00 02/19/19 11:59 02/19/19 10:07 Vancomycin HCl (Vanco rx to dose) 1 ea DAILY PRN MISC Per rx protocol 02/19/19 09:00 03/20/19 17:14 Vancomycin HCl 750 mg/Sodium Chloride 275 ml @ 183.333 mls/hr Q24H IVPB 02/19/19 18:00 02/24/19 17:59 GI: Plan Problems: (1) Electrolyte imbalance (2) PEG (percutaneous endoscopic gastrostomy) status (3) Colostomy status (4) Anemia Plan AMS G Tube dependent colostomy dependent no plans for GI procedures at this time, only if emergent hold feedings until more stable electrolyte correction anemia work up OB stool r/o GI bleed monitor H&H, prn transfusions bowel regimen ppi hold iron supplementation given elevated ferritin levels GT/colostomy site care fu labs Discussed with Dr. Vora. Thank you for this patient referral, we will follow. The patient was seen and examined at bedside and all new and available data was reviewed in the patients chart. I agree with the above findings, impression and plan. (Patient seen earlier today. Signature stamp does not reflect patient encounter time.). - MD Geni RamonTem[facility] HospitalChrist[facility] INSTRUCTOR Feb 19, 2019 11:55
--- NOTE | 2019-02-19 12:15 | Consultation ---
DATE OF CONSULTATION: 02/19/2019 ENDOCRINOLOGY CONSULTATION CONSULTING PHYSICIAN: Pablo Day M.D. REFERRING PHYSICIAN: Danial Walden M.D. REASON FOR CONSULTATION: Severe hyperglycemia. HISTORY OF PRESENT ILLNESS: The patient is an 83-year-old female, known to me from her previous admission to [facility], resides in a [facility] facility. The patient was admitted with altered mental status and high glucose. I was called to manage diabetes. PAST MEDICAL HISTORY: 1. Diabetes. 2. Hypertension. 3. COPD. 4. Dysphagia. 5. G-tube placement. 6. Anemia. 7. Previous CVA. 8. Previous colostomy. MEDICATIONS: Reviewed and reconciled. ALLERGIES: Allopurinol. FAMILY HISTORY: Noncontributory. SOCIAL HISTORY: Resides in a [facility] facility. REVIEW OF SYSTEMS: Limited. PHYSICAL EXAMINATION: GENERAL: Noncommunicating. VITAL SIGNS: Blood pressure 100/60, pulse 101, temperature 97.7, and respiratory rate of 17. HEENT: No JVD. HEART: Tachy. LUNGS: Decreased breath sounds. ABDOMEN: G-tube noted. EXTREMITIES: Positive for edema. LABORATORY DATA: WBC 12, hemoglobin 7.6, hematocrit 26.4, and platelets of 238,000. Sodium 169, potassium 3.0, chloride 131, bicarb 31, BUN 100, creatinine 1.4, and glucose of 130. A1c of 10. DIAGNOSES: 1. Severe hyperglycemia. 2. Sepsis. 3. Altered mental status. PLAN: The patient is critically ill. We have treated her with IV insulin, which was started last night. Glucose is successfully controlled. Her sodium is quite elevated and she is being treated with dextrose. We will continue to treat the patient with insulin drip until the electrolytes improve. I will follow her during the hospital stay. Thank you, Dr. Walden, for the courtesy of this consultation. Pablo Day M.D. DR: RACHEL JOB#: [id number] CC: JEN
--- NOTE | 2019-02-19 12:17 | Cardiology Progress Note ---
Assessment/Plan Assessment/Plan The patient is seen and examined, full consult note will be dictated. Objective Last 24 Hour Vital Signs Date Time Temp Pulse Resp B/P (MAP) Pulse Ox O2 Delivery O2 Flow Rate FiO2 02/19/19 11:15 103 18 100 Nasal Cannula 2.0 28 02/19/19 11:00 104 17 103/43 (63) 100 02/19/19 10:57 105 20 100 Nasal Cannula 2.0 28 02/19/19 10:00 106 20 118/45 (69) 100 02/19/19 09:12 99 02/19/19 09:00 100 17 100/50 (67) 100 02/19/19 08:00 98.5 105 24 96/39 (58) 98 02/19/19 08:00 Nasal Cannula 2.0 02/19/19 08:00 2.0 02/19/19 07:31 101 20 100 Nasal Cannula 2.0 28 02/19/19 07:28 102 20 100 Nasal Cannula 2.0 28 02/19/19 07:27 100 Nasal Cannula 2.0 28 02/19/19 07:25 101 20 100 Nasal Cannula 2.0 28 02/19/19 07:00 103 17 98/42 (60) 98 02/19/19 06:30 101 17 110/46 (67) 100 02/19/19 06:00 97 19 83/46 (58) 100 02/19/19 05:00 99 19 125/43 (70) 99 02/19/19 04:30 102 18 110/51 (70) 99 02/19/19 04:00 Nasal Cannula 2.0 02/19/19 04:00 2.0 02/19/19 04:00 97.7 98 17 87/46 (60) 100 02/19/19 03:48 102 02/19/19 03:19 28 02/19/19 03:19 103 18 100 Nasal Cannula 2.0 28 02/19/19 03:04 97 18 98 Nasal Cannula 2.0 28 02/19/19 03:00 87 19 113/93 (100) 98 02/19/19 02:00 87 20 103/36 (58) 100 02/19/19 01:00 98 20 93/45 (61) 100 02/19/19 00:03 102 18 100 Nasal Cannula 2.0 28 02/19/19 00:00 Nasal Cannula 2.0 02/19/19 00:00 2.0 02/19/19 00:00 97.5 92 20 110/54 (72) 100 02/18/19 23:51 85 02/18/19 23:51 101 24 100 Nasal Cannula 2.0 28 02/18/19 23:51 28 02/18/19 23:00 87 20 88/60 (69) 98 02/18/19 22:15 94 24 109/69 (82) 99 02/18/19 22:00 94 22 113/62 (79) 98 02/18/19 21:45 94 21 102/53 (69) 96 02/18/19 21:30 94 19 105/49 (67) 99 02/18/19 21:30 105/49 02/18/19 21:15 94 19 99/40 (59) 99 02/18/19 21:00 94 20 95/52 (66) 97 02/18/19 20:45 94 17 99/64 (76) 98 02/18/19 20:35 96 02/18/19 20:30 97.6 192/95 (127) 02/18/19 20:25 Nasal Cannula 2.0 02/18/19 20:08 98.1 87 18 98/82 100 Nasal Cannula 2.0 02/18/19 18:37 98.1 87 17 107/52 100 Room Air 02/18/19 17:30 98.4 85 20 102/40 100 Room Air 02/18/19 16:30 98.1 91 24 119/49 100 Room Air 02/18/19 15:33 98.3 98 28 92/61 98 Room Air 02/18/19 14:20 98.2 87 22 78/50 97 Room Air 02/18/19 13:35 98.5 90 16 122/83 100 Room Air Intake and Output 02/18/19 02/19/19 18:59 06:59 Intake Total 2330.0 ml 635.4 ml Output Total 0 ml 795 ml Balance 2330.0 ml -159.6 ml Intake Oral 0 ml IV Total 2330.0 ml 635.4 ml Output Urine Total 0 ml 545 ml Stool Total 250 ml Laboratory Tests Test 02/18/19 12:50 02/18/19 14:18 02/19/19 03:55 02/19/19 08:15 White Blood Count 12.1 K/UL (4.8-10.8) H 12.0 K/UL (4.8-10.8) H 12.3 K/UL (4.8-10.8) H Red Blood Count 3.84 M/UL (4.20-5.40) L 2.90 M/UL (4.20-5.40) L 3.03 M/UL (4.20-5.40) L Hemoglobin 10.3 G/DL (12.0-16.0) L 7.6 G/DL (12.0-16.0) L 8.0 G/DL (12.0-16.0) L Hematocrit 36.4 % (37.0-47.0) L 26.4 % (37.0-47.0) L 27.4 % (37.0-47.0) L Mean Corpuscular Volume 95 FL (80-99) 91 FL (80-99) 91 FL (80-99) Mean Corpuscular Hemoglobin 26.7 PG (27.0-31.0) L 26.3 PG (27.0-31.0) L 26.5 PG (27.0-31.0) L Mean Corpuscular Hemoglobin Concent 28.2 G/DL (32.0-36.0) L 28.9 G/DL (32.0-36.0) L 29.3 G/DL (32.0-36.0) L Red Cell Distribution Width 18.2 % (11.6-14.8) H 17.7 % (11.6-14.8) H 17.5 % (11.6-14.8) H Platelet Count 339 K/UL (150-450) 238 K/UL (150-450) 230 K/UL (150-450) Mean Platelet Volume 7.5 FL (6.5-10.1) 8.3 FL (6.5-10.1) 8.5 FL (6.5-10.1) Neutrophils (%) (Auto) 73.1 % (45.0-75.0) % (45.0-75.0) 63.0 % (45.0-75.0) Lymphocytes (%) (Auto) 23.0 % (20.0-45.0) % (20.0-45.0) 31.1 % (20.0-45.0) Monocytes (%) (Auto) 3.1 % (1.0-10.0) % (1.0-10.0) 4.4 % (1.0-10.0) Eosinophils (%) (Auto) 0.5 % (0.0-3.0) % (0.0-3.0) 0.7 % (0.0-3.0) Basophils (%) (Auto) 0.4 % (0.0-2.0) % (0.0-2.0) 0.7 % (0.0-2.0) Prothrombin Time 10.8 SEC (9.30-11.50) Prothromb Time International Ratio 1.0 (0.9-1.1) Activated Partial Thromboplast Time 19 SEC (23-33) L Urine Color Pale yellow Urine Appearance Cloudy Urine pH 8 (4.5-8.0) Urine Specific [place] 1.010 (1.005-1.035) Urine Protein 3+ (NEGATIVE) H Urine Glucose (UA) 4+ (NEGATIVE) H Urine Ketones Negative (NEGATIVE) Urine Blood 3+ (NEGATIVE) H Urine Nitrite Negative (NEGATIVE) Urine Bilirubin Negative (NEGATIVE) Urine Urobilinogen Normal MG/DL (0.0-1.0) Urine Leukocyte Esterase 3+ (NEGATIVE) H Urine RBC 10-15 /HPF (0 - 2) H Urine WBC Tntc /HPF (0 - 2) H Urine Squamous Epithelial Cells Few /LPF (NONE/OCC) Urine Bacteria Few /HPF (NONE) Sodium Level 163 MMOL/L (136-145) *H 169 MMOL/L (136-145) *H Potassium Level 6.1 MMOL/L (3.5-5.1) *H 3.0 MMOL/L (3.5-5.1) #L Chloride Level 125 MMOL/L (98-107) H 131 MMOL/L (98-107) H Carbon Dioxide Level 35 MMOL/L (21-32) H 31 MMOL/L (21-32) Anion Gap 4 mmol/L (5-15) L 5 mmol/L (5-15) Blood Urea Nitrogen 119 mg/dL (7-18) H 100 mg/dL (7-18) H Creatinine 2.2 MG/DL (0.55-1.30) H 1.4 MG/DL (0.55-1.30) H Estimat Glomerular Filtration Rate mL/min (>60) mL/min (>60) Glucose Level 918 MG/DL (74-106) *H 130 MG/DL (74-106) #H Calcium Level 10.5 MG/DL (8.5-10.1) H 8.9 MG/DL (8.5-10.1) Total Bilirubin 0.3 MG/DL (0.2-1.0) 0.2 MG/DL (0.2-1.0) Aspartate Amino Transf (AST/SGOT) 18 U/L (15-37) 17 U/L (15-37) Alanine Aminotransferase (ALT/SGPT) 12 U/L (12-78) 10 U/L (12-78) L Alkaline Phosphatase 181 U/L (46-116) H 91 U/L (46-116) Total Creatine Kinase 210 U/L (26-308) 164 U/L (26-308) Creatine Kinase MB 1.3 NG/ML (0.0-3.6) Creatine Kinase MB Relative Index 0.6 Troponin I 0.000 ng/mL (0.000-0.056) 0.000 ng/mL (0.000-0.056) Pro-B-Type Natriuretic Peptide 670 pg/mL (0-125) H 612 pg/mL (0-125) H Total Protein 10.1 G/DL (6.4-8.2) H 7.9 G/DL (6.4-8.2) Albumin 2.0 G/DL (3.4-5.0) L 1.5 G/DL (3.4-5.0) L Globulin 8.1 g/dL 6.4 g/dL Albumin/Globulin Ratio 0.2 (1.0-2.7) L 0.2 (1.0-2.7) L Lipase 522 U/L (73-393) H 217 U/L (73-393) Arterial Blood pH 7.369 (7.350-7.450) Arterial Blood Partial Pressure CO2 56.1 mmHg (35.0-45.0) *H Arterial Blood Partial Pressure O2 66.8 mmHg (75.0-100.0) L Arterial Blood HCO3 31.6 mmol/L (22.0-26.0) H Arterial Blood Oxygen Saturation 91.5 % (95-100) L Arterial Blood Base Excess 5.3 (-2-2) H Brock Test Positive Differential Total Cells Counted 100 Neutrophils % (Manual) 70 % (45-75) Lymphocytes % (Manual) 25 % (20-45) Monocytes % (Manual) 2 % (1-10) Eosinophils % (Manual) 3 % (0-3) Basophils % (Manual) 0 % (0-2) Band Neutrophils 0 % (0-8) Platelet Estimate Adequate Platelet Morphology Normal Hypochromasia 1+ Anisocytosis 1+ Hemoglobin A1c 10.1 % (4.3-6.0) H Uric Acid 6.0 MG/DL (2.6-7.2) Phosphorus Level 2.6 MG/DL (2.5-4.9) Magnesium Level 2.0 MG/DL (1.8-2.4) Iron Level 14 ug/dL (50-175) L Total Iron Binding Capacity 132 ug/dL (250-450) L Percent Iron Saturation 11 % (15-50) L Unsaturated Iron Binding 118 ug/dL (112-346) Ferritin 619 NG/ML (8-388) H Gamma Glutamyl Transpeptidase 47 U/L (5-85) Ammonia 19 umol/L (11-32) C-Reactive Protein, Quantitative 33.7 mg/dL (0.00-0.90) H Triglycerides Level 85 MG/DL (30-150) Cholesterol Level 114 MG/DL (< 200) LDL Cholesterol 61 mg/dL (<100) HDL Cholesterol 47 MG/DL (40-60) Cholesterol/HDL Ratio 2.4 (3.3-4.4) L Vitamin B12 Level 1526 PG/ML (193-986) H Folate 81.1 NG/ML (8.6-58.9) H Thyroid Stimulating Hormone (TSH) 0.697 uiU/mL (0.358-3.740) Random Vancomycin Level 16.9 ug/mL Acetone Level Negative (NEGATIVE) Microbiology Date/Time Source Procedure Growth Status 02/18/19 12:50 Urine,Clean Catch Urine Culture - Preliminary Gram Negative Bacillus 1 Resulted 02/18/19 20:45 Sacral Wound Gram Stain - Final Resulted 02/18/19 20:45 Sacral Wound Wound Culture Pending Resulted Logan Arias MD Feb 19, 2019 12:17
[2019-02-19] MEDS: Aspirin EC 81mg tab ORAL SCH (13:26)
--- NOTE | 2019-02-19 13:40 | NUR ---
NURSE NOTES: New flange and colostomy pouch applied. Stoma round and bright red. 200cc loose brown BM drained.
--- NOTE | 2019-02-19 14:54 | Pulmonolgy Critical Care Note ---
Critical Care - Asmt/Plan Assessment/Plan: Pulmonary CCM Progress Note HPI Patient is an 83 year old woman from [facility], history of Diabetes, admitted with alteration in mental status, very high glucose readings Noted to have a UTI - gas bubbles at the periphery of the dome of the bladder are concerning for intramural gas consistent with emphysematous cystitis No reports of vomiting or diarrhea Unknown regarding any fall or trauma Allergies: ALLOPURINOL Past Medical History: Diabetes, Hypertension, Chronic Obstructive Pulmonary Disease, Dyphagia, s/p Gastrostomy Tube, Anemia, Previous CVA, previous colostomy All Other Systems: limited Physical Exam Vital Signs Noted Date Time Temp Pulse Resp B/P (MAP) Pulse Ox O2 Delivery O2 Flow Rate FiO2 02/18/19 12:08 98.1 101 24 101/82 (88) 98 Room Air General Appearance: Chronically ill appearing, altered mental status, no response to verbal command,moans with physical stimuli Head: normocephalic, atraumatic Eyes: bilateral eye PERRL ENT: no angioedema, dry mucus membranes Neck: supple, no LN Respiratory: no respiratory distress, crackles - bilaterally Cardiovascular: tachycardia, HS1, HS2, normal, RRR Gastrointestinal: non tender, soft, other - Colostomy bag noted Musculoskeletal: oupper extremity localizes towards physical stimuli, Neurologic: Significantly decreased GCS patient makes moaning sound to physical stimuli is somewhat purposeful with her upper extremity, otherwise nonverbal does not follow commands Skin: no rash, no edema Impression Severe Hyperglycemia Severe Dehydration Urinary Tract Infection Sepsis Previous Diabetes Hypertension Chronic Obstructive Pulmonary Disease Dysphagia, s/p Gastrostomy Tube Anemia Previous CVA Plan - IV Antibiotics - Blood/Urine cultures - Insulin drip - IV fluids - Monitor labs - Pressors PRN - HHN - O2 PRN - [employer] meds - PPX - Chest and Brain imaging - LE dupplex r/o DVT Labs Noted Test 02/18/19 12:50 02/18/19 14:18 White Blood Count 12.1 K/UL (4.8-10.8) Red Blood Count 3.84 M/UL (4.20-5.40) Hemoglobin 10.3 G/DL (12.0-16.0) Hematocrit 36.4 % (37.0-47.0) Mean Corpuscular Volume 95 FL (80-99) Mean Corpuscular Hemoglobin 26.7 PG (27.0-31.0) Mean Corpuscular Hemoglobin Concent 28.2 G/DL (32.0-36.0) Red Cell Distribution Width 18.2 % (11.6-14.8) Platelet Count 339 K/UL (150-450) Mean Platelet Volume 7.5 FL (6.5-10.1) Neutrophils (%) (Auto) 73.1 % (45.0-75.0) Lymphocytes (%) (Auto) 23.0 % (20.0-45.0) Monocytes (%) (Auto) 3.1 % (1.0-10.0) Eosinophils (%) (Auto) 0.5 % (0.0-3.0) Basophils (%) (Auto) 0.4 % (0.0-2.0) Prothrombin Time 10.8 SEC (9.30-11.50) Prothromb Time International Ratio 1.0 (0.9-1.1) Activated Partial Thromboplast Time 19 SEC (23-33) Urine Color Pale yellow Urine Appearance Cloudy Urine pH 8 (4.5-8.0) Urine Specific [place] 1.010 (1.005-1.035) Urine Protein 3+ (NEGATIVE) Urine Glucose (UA) 4+ (NEGATIVE) Urine Ketones Negative (NEGATIVE) Urine Blood 3+ (NEGATIVE) Urine Nitrite Negative (NEGATIVE) Urine Bilirubin Negative (NEGATIVE) Urine Urobilinogen Normal MG/DL (0.0-1.0) Urine Leukocyte Esterase 3+ (NEGATIVE) Urine RBC 10-15 /HPF (0 - 2) Urine WBC Tntc /HPF (0 - 2) Urine Squamous Epithelial Cells Few /LPF (NONE/OCC) Urine Bacteria Few /HPF (NONE) Sodium Level 163 MMOL/L (136-145) Potassium Level 6.1 MMOL/L (3.5-5.1) Chloride Level 125 MMOL/L (98-107) Carbon Dioxide Level 35 MMOL/L (21-32) Anion Gap 4 mmol/L (5-15) Blood Urea Nitrogen 119 mg/dL (7-18) Creatinine 2.2 MG/DL (0.55-1.30) Estimat Glomerular Filtration Rate mL/min (>60) Glucose Level 918 MG/DL (74-106) Calcium Level 10.5 MG/DL (8.5-10.1) Total Bilirubin 0.3 MG/DL (0.2-1.0) Aspartate Amino Transf (AST/SGOT) 18 U/L (15-37) Alanine Aminotransferase (ALT/SGPT) 12 U/L (12-78) Alkaline Phosphatase 181 U/L (46-116) Total Creatine Kinase 210 U/L (26-308) Creatine Kinase MB 1.3 NG/ML (0.0-3.6) Creatine Kinase MB Relative Index 0.6 Troponin I 0.000 ng/mL (0.000-0.056) Pro-B-Type Natriuretic Peptide 670 pg/mL (0-125) Total Protein 10.1 G/DL (6.4-8.2) Albumin 2.0 G/DL (3.4-5.0) Globulin 8.1 g/dL Albumin/Globulin Ratio 0.2 (1.0-2.7) Lipase 522 U/L (73-393) Arterial Blood pH 7.369 (7.350-7.450) Arterial Blood Partial Pressure CO2 56.1 mmHg (35.0-45.0) Arterial Blood Partial Pressure O2 66.8 mmHg (75.0-100.0) Arterial Blood HCO3 31.6 mmol/L (22.0-26.0) Arterial Blood Oxygen Saturation 91.5 % (95-100) Arterial Blood Base Excess 5.3 (-2-2) Brock Test Positive Labs Test 02/18/19 12:50 White Blood Count 12.1 K/UL (4.8-10.8) Red Blood Count 3.84 M/UL (4.20-5.40) Hemoglobin 10.3 G/DL (12.0-16.0) Hematocrit 36.4 % (37.0-47.0) Mean Corpuscular Volume 95 FL (80-99) Mean Corpuscular Hemoglobin 26.7 PG (27.0-31.0) Mean Corpuscular Hemoglobin Concent 28.2 G/DL (32.0-36.0) Red Cell Distribution Width 18.2 % (11.6-14.8) Platelet Count 339 K/UL (150-450) Mean Platelet Volume 7.5 FL (6.5-10.1) Neutrophils (%) (Auto) 73.1 % (45.0-75.0) Lymphocytes (%) (Auto) 23.0 % (20.0-45.0) Monocytes (%) (Auto) 3.1 % (1.0-10.0) Eosinophils (%) (Auto) 0.5 % (0.0-3.0) Basophils (%) (Auto) 0.4 % (0.0-2.0) Prothrombin Time 10.8 SEC (9.30-11.50) Prothromb Time International Ratio 1.0 (0.9-1.1) Activated Partial Thromboplast Time 19 SEC (23-33) Urine Color Pale yellow Urine Appearance Cloudy Urine pH 8 (4.5-8.0) Urine Specific [place] 1.010 (1.005-1.035) Urine Protein 3+ (NEGATIVE) Urine Glucose (UA) 4+ (NEGATIVE) Urine Ketones Negative (NEGATIVE) Urine Blood 3+ (NEGATIVE) Urine Nitrite Negative (NEGATIVE) Urine Bilirubin Negative (NEGATIVE) Urine Urobilinogen Normal MG/DL (0.0-1.0) Urine Leukocyte Esterase 3+ (NEGATIVE) Urine RBC 10-15 /HPF (0 - 2) Urine WBC Tntc /HPF (0 - 2) Urine Squamous Epithelial Cells Few /LPF (NONE/OCC) Urine Bacteria Few /HPF (NONE) Sodium Level 163 MMOL/L (136-145) Potassium Level 6.1 MMOL/L (3.5-5.1) Chloride Level 125 MMOL/L (98-107) Carbon Dioxide Level 35 MMOL/L (21-32) Anion Gap 4 mmol/L (5-15) Blood Urea Nitrogen 119 mg/dL (7-18) Creatinine 2.2 MG/DL (0.55-1.30) Estimat Glomerular Filtration Rate mL/min (>60) Glucose Level 918 MG/DL (74-106) Calcium Level 10.5 MG/DL (8.5-10.1) Total Bilirubin 0.3 MG/DL (0.2-1.0) Aspartate Amino Transf (AST/SGOT) 18 U/L (15-37) Alanine Aminotransferase (ALT/SGPT) 12 U/L (12-78) Alkaline Phosphatase 181 U/L (46-116) Total Creatine Kinase 210 U/L (26-308) Creatine Kinase MB 1.3 NG/ML (0.0-3.6) Creatine Kinase MB Relative Index 0.6 Troponin I 0.000 ng/mL (0.000-0.056) Pro-B-Type Natriuretic Peptide 670 pg/mL (0-125) Total Protein 10.1 G/DL (6.4-8.2) Albumin 2.0 G/DL (3.4-5.0) Globulin 8.1 g/dL Albumin/Globulin Ratio 0.2 (1.0-2.7) Lipase 522 U/L (73-393) CT Abdomen: Marked abnormal bladder, with wall thickening, and extensive stranding of the pericystic fat. Gas within the bladder lumen is presumably related to Agarwal catheter. However, gas bubbles at the periphery of the dome of the bladder are concerning for intramural gas consistent with emphysematous cystitis. Positive for tiny right distal ureteral calculus resulting in moderate right hydronephrosis and hydroureter Bilateral intrarenal calculi Extensive retrosacral/retrococcygeal decubitus changes. Correlate with clinical findings. 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 CXR: Nil acute Critical Care - Objective Last 24 Hour Vital Signs Date Time Temp Pulse Resp B/P (MAP) Pulse Ox O2 Delivery O2 Flow Rate FiO2 02/19/19 14:00 98 13 85/7 (33) 100 02/19/19 13:00 98.0 102 19 107/47 (67) 100 02/19/19 12:00 104 17 95/34 (54) 100 02/19/19 12:00 Nasal Cannula 2.0 02/19/19 12:00 106 02/19/19 12:00 2.0 02/19/19 11:15 103 18 100 Nasal Cannula 2.0 28 02/19/19 11:00 104 17 103/43 (63) 100 02/19/19 10:57 105 20 100 Nasal Cannula 2.0 28 02/19/19 10:00 106 20 118/45 (69) 100 02/19/19 09:12 99 02/19/19 09:00 100 17 100/50 (67) 100 02/19/19 08:00 98.5 105 24 96/39 (58) 98 02/19/19 08:00 Nasal Cannula 2.0 02/19/19 08:00 2.0 02/19/19 07:31 101 20 100 Nasal Cannula 2.0 28 02/19/19 07:28 102 20 100 Nasal Cannula 2.0 28 02/19/19 07:27 100 Nasal Cannula 2.0 28 02/19/19 07:25 101 20 100 Nasal Cannula 2.0 28 02/19/19 07:00 103 17 98/42 (60) 98 02/19/19 06:30 101 17 110/46 (67) 100 02/19/19 06:00 97 19 83/46 (58) 100 02/19/19 05:00 99 19 125/43 (70) 99 02/19/19 04:30 102 18 110/51 (70) 99 02/19/19 04:00 Nasal Cannula 2.0 02/19/19 04:00 2.0 02/19/19 04:00 97.7 98 17 87/46 (60) 100 02/19/19 03:48 102 02/19/19 03:19 28 02/19/19 03:19 103 18 100 Nasal Cannula 2.0 28 02/19/19 03:04 97 18 98 Nasal Cannula 2.0 28 02/19/19 03:00 87 19 113/93 (100) 98 02/19/19 02:00 87 20 103/36 (58) 100 02/19/19 01:00 98 20 93/45 (61) 100 02/19/19 00:03 102 18 100 Nasal Cannula 2.0 28 02/19/19 00:00 Nasal Cannula 2.0 02/19/19 00:00 2.0 02/19/19 00:00 97.5 92 20 110/54 (72) 100 02/18/19 23:51 85 02/18/19 23:51 101 24 100 Nasal Cannula 2.0 28 02/18/19 23:51 28 02/18/19 23:00 87 20 88/60 (69) 98 02/18/19 22:15 94 24 109/69 (82) 99 02/18/19 22:00 94 22 113/62 (79) 98 02/18/19 21:45 94 21 102/53 (69) 96 02/18/19 21:30 94 19 105/49 (67) 99 02/18/19 21:30 105/49 02/18/19 21:15 94 19 99/40 (59) 99 02/18/19 21:00 94 20 95/52 (66) 97 02/18/19 20:45 94 17 99/64 (76) 98 02/18/19 20:35 96 02/18/19 20:30 97.6 192/95 (127) 02/18/19 20:25 Nasal Cannula 2.0 02/18/19 20:08 98.1 87 18 98/82 100 Nasal Cannula 2.0 02/18/19 18:37 98.1 87 17 107/52 100 Room Air 02/18/19 17:30 98.4 85 20 102/40 100 Room Air 02/18/19 16:30 98.1 91 24 119/49 100 Room Air 02/18/19 15:33 98.3 98 28 92/61 98 Room Air Micro: Microbiology Date/Time Source Procedure Growth Status 02/18/19 12:50 Urine,Clean Catch Urine Culture - Preliminary Gram Negative Bacillus 1 Resulted 02/18/19 20:45 Sacral Wound Gram Stain - Final Resulted 02/18/19 20:45 Sacral Wound Wound Culture Pending Resulted Accucheck: 193 Critical Care - Subjective ROS Limited/Unobtainable: No Condition: improving FI02: 28 Sputum Amount: None I&O: Intake and Output 02/18/19 02/19/19 19:00 07:00 Intake Total 2330.0 ml 711.4 ml Output Total 0 ml 845 ml Balance 2330.0 ml -133.6 ml Intake Oral 0 ml IV Total 2330.0 ml 711.4 ml Output Urine Total 0 ml 595 ml Stool Total 250 ml Minh Dunbar MD Feb 19, 2019 14:54
--- NOTE | 2019-02-19 15:00 | NUR ---
NURSE NOTES: Wound care nurse assessed the wound and applied dressing as per protocol. Head CT done downstairs. Pt came back from CT. Repositioned pt.
--- NOTE | 2019-02-19 15:38 | Diagnostic Imaging Report ---
Indications: Altered mental status Technique: Spiral acquisitions obtained through the brain. Angled axial and coronal 5 x 5 mm slices were reconstructed. Total dose length product 3248.11 mGycm. CTDI vol(s) 70.38,70.38,70.38 mGy. Dose reduction achieved using automated exposure control Comparison: None. Findings: There is age-related enlargement of the ventricles and extra axial CSF spaces. There is periventricular deep white matter low-attenuation, consistent with chronic microvascular ischemic change. No acute intracranial hemorrhage or edema, mass effect, nor midline shift. Intact calvarium. Visualized orbits and sinuses are unremarkable. The mastoids are clear. Impression: Chronic age-related changes Negative for acute intracranial bleed or mass effect The CT scanner at [facility] is accredited by the [employer] and the scans are performed using protocols designed to limit radiation exposure to as low as reasonably achievable to attain images of sufficient resolution adequate for diagnostic evaluation.
--- NOTE | 2019-02-19 16:55 | NUR ---
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
[2019-02-19] MEDS ORDERED: Vancomycin 750 MG in NS 275 ML IVPB SCH (18:00)
--- NOTE | 2019-02-19 18:32 | Hematology/Onc Progress Note ---
Assessment/Plan Assessment/Plan Assessment and Recs: # Anemia of chronic disease due to underlying chronic medical issues, multifactorial, ferritin 366, tibc 144 --> Anemia workup has been reviewed, rule out gi bleed --> No evidence of hemolysis is noted, peripheral smear has been reviewed. --> Hgb goal >7. Transfuse prn. --> Epogen or iron at this time is not particularly indicated --> Medications have been reviewed --> low threshold for gi evaluation in case has occult + --> Hgb trend:>8.4-->8 # Recanalized dvt of the right lower extremity --> given it has healed/recanalized, is not acute okay for just heparin prophylactic dosing --> continue heparin sq bid dosing # Leukocytosis/elevated white blood cell count, is due to underlying sepsis urine infection+ --> Currently resolved --> ID is following, appreciate recs --> have reviewed peripheral smear and bandemia/neutrophilia noted --> continue antibiotics per ID cefepime/vanc --> monitor for resolution --> trend 17.4-->11.2-->8.3 -->12 # Respiratory failure with hypoxia --> Currently on NC 12/28 --> pulm eval --> prior intubation 12/2018 # Sacral decubitus ulcer, stage IV --> per surg, wound care # HCAP (healthcare-associated pneumonia) # ARF (acute renal failure) --> per renal # Hyperglycemia due to type 2 diabetes mellitus --> per endo # Acute metabolic encephalopathy # Severe dehydration The timing of this note does not necessarily reflect the time of the patient was seen. Subjective Constitutional: Denies: no symptoms, chills, fever, malaise, weakness, other Cardiovascular: Denies: no symptoms, chest pain, edema, irregular heart rate, lightheadedness, palpitations, syncope, other Respiratory: Denies: no symptoms, cough, shortness of breath, SOB with excertion, SOB at rest, sputum, wheezing, other Gastrointestinal/Abdominal: Denies: no symptoms, abdomen distended, abdominal pain, black stools, tarry stools, blood in stool, constipated, diarrhea, difficulty swallowing, nausea, poor appetite, poor fluid intake, rectal bleeding , vomiting, other Genitourinary: Denies: no symptoms, burning, discharge, frequency, flank pain, hematuria, incontinence, pain, urgency, other Neurologic/Psychiatric: Denies: no symptoms, anxiety, depressed, emotional problems, headache, numbness, paresthesia, pre-existing deficit, seizure, tingling, tremors, weakness, other Endocrine: Denies: no symptoms, excessive sweating, flushing, intolerance to cold, intolerance to heat, increased hunger, increased thirst, increased urine, unexplained weight gain, unexplained weight loss, other Allergies: Coded Allergies: ALLOPURINOL (Verified Allergy, Unknown, 12/20/18) Subjective 02/19: remains in icu, labs reviewed, bs is better today, on abx Objective Objective Current Medications Medications (Trade) Dose Ordered Sig/Nora Route PRN Reason Start Time Stop Time Status Last Admin Dose Admin Albuterol/ Ipratropium (Albuterol/ Ipratropium) 3 ml Q4HRT HHN 02/18/19 23:00 02/23/19 22:59 02/19/19 15:03 Aspirin (Ecotrin) 81 mg DAILY ORAL 02/19/19 12:30 03/21/19 12:29 02/19/19 13:26 Atorvastatin Calcium (Lipitor) 40 mg BEDTIME ORAL 02/19/19 21:00 03/21/19 20:59 Cefepime HCl 1 gm/ Dextrose 55 ml @ 110 mls/hr Q24H IVPB 02/19/19 20:00 02/25/19 19:59 Chlorhexidine Gluconate (Valentina-Hex 2%) 1 applic DAILY@2000 TOPIC 02/19/19 20:00 03/21/19 19:59 Dextrose 1,000 ml @ 100 mls/hr Q10H IV 02/19/19 07:09 03/21/19 07:08 02/19/19 17:38 Dextrose (Dextrose 50%) 25 ml Q30M PRN IV Hypoglycemia 02/19/19 09:00 03/21/19 08:59 Dextrose (Dextrose 50%) 50 ml Q30M PRN IV Hypoglycemia 02/19/19 09:00 03/21/19 08:59 Insulin Aspart (NovoLOG) BEFORE MEALS AND HS SUBQ 02/19/19 11:30 03/21/19 11:29 02/19/19 17:39 Insulin Detemir (Levemir) 6 units BID SUBQ 02/19/19 09:00 03/21/19 08:59 02/19/19 17:40 Norepinephrine Bitartrate 4 mg/ Dextrose 250 ml @ 0 mls/hr Q24H IV 02/18/19 21:30 03/20/19 21:29 Vancomycin HCl (Vanco rx to dose) 1 ea DAILY PRN MISC Per rx protocol 02/19/19 09:00 03/20/19 17:14 Vancomycin HCl 750 mg/Sodium Chloride 275 ml @ 183.333 mls/hr Q24H IVPB 02/19/19 18:00 02/24/19 17:59 02/19/19 17:38 Last 24 Hour Vital Signs Date Time Temp Pulse Resp B/P (MAP) Pulse Ox O2 Delivery O2 Flow Rate FiO2 02/19/19 18:00 91 15 102/27 (52) 100 02/19/19 17:00 98.2 100 19 120/83 (95) 100 02/19/19 16:00 100 02/19/19 16:00 99 16 120/81 (94) 100 02/19/19 16:00 2.0 02/19/19 16:00 Nasal Cannula 2.0 02/19/19 15:12 94 18 98 Nasal Cannula 2.0 28 02/19/19 15:03 94 20 100 Nasal Cannula 2.0 28 02/19/19 15:00 93 18 91/36 (54) 100 02/19/19 14:00 98 13 85/47 (60) 100 02/19/19 13:00 98.0 102 19 107/47 (67) 100 02/19/19 12:00 104 17 95/34 (54) 100 02/19/19 12:00 Nasal Cannula 2.0 02/19/19 12:00 106 02/19/19 12:00 2.0 02/19/19 11:15 103 18 100 Nasal Cannula 2.0 28 02/19/19 11:00 104 17 103/43 (63) 100 02/19/19 10:57 105 20 100 Nasal Cannula 2.0 28 02/19/19 10:00 106 20 118/45 (69) 100 02/19/19 09:12 99 02/19/19 09:00 100 17 100/50 (67) 100 02/19/19 08:00 98.5 105 24 96/39 (58) 98 02/19/19 08:00 Nasal Cannula 2.0 02/19/19 08:00 2.0 02/19/19 07:31 101 20 100 Nasal Cannula 2.0 28 02/19/19 07:28 102 20 100 Nasal Cannula 2.0 28 02/19/19 07:27 100 Nasal Cannula 2.0 28 02/19/19 07:25 101 20 100 Nasal Cannula 2.0 28 02/19/19 07:00 103 17 98/42 (60) 98 02/19/19 06:30 101 17 110/46 (67) 100 02/19/19 06:00 97 19 83/46 (58) 100 02/19/19 05:00 99 19 125/43 (70) 99 02/19/19 04:30 102 18 110/51 (70) 99 02/19/19 04:00 Nasal Cannula 2.0 02/19/19 04:00 2.0 02/19/19 04:00 97.7 98 17 87/46 (60) 100 02/19/19 03:48 102 02/19/19 03:19 28 02/19/19 03:19 103 18 100 Nasal Cannula 2.0 28 02/19/19 03:04 97 18 98 Nasal Cannula 2.0 28 02/19/19 03:00 87 19 113/93 (100) 98 02/19/19 02:00 87 20 103/36 (58) 100 02/19/19 01:00 98 20 93/45 (61) 100 02/19/19 00:03 102 18 100 Nasal Cannula 2.0 28 02/19/19 00:00 Nasal Cannula 2.0 02/19/19 00:00 2.0 02/19/19 00:00 97.5 92 20 110/54 (72) 100 02/18/19 23:51 85 02/18/19 23:51 101 24 100 Nasal Cannula 2.0 28 02/18/19 23:51 28 02/18/19 23:00 87 20 88/60 (69) 98 02/18/19 22:15 94 24 109/69 (82) 99 02/18/19 22:00 94 22 113/62 (79) 98 02/18/19 21:45 94 21 102/53 (69) 96 02/18/19 21:30 94 19 105/49 (67) 99 02/18/19 21:30 105/49 02/18/19 21:15 94 19 99/40 (59) 99 02/18/19 21:00 94 20 95/52 (66) 97 02/18/19 20:45 94 17 99/64 (76) 98 02/18/19 20:35 96 02/18/19 20:30 97.6 192/95 (127) 02/18/19 20:25 Nasal Cannula 2.0 02/18/19 20:08 98.1 87 18 98/82 100 Nasal Cannula 2.0 02/18/19 18:37 98.1 87 17 107/52 100 Room Air 02/18/19 17:30 98.4 85 20 102/40 100 Room Air 02/18/19 16:30 98.1 91 24 119/49 100 Room Air 02/18/19 15:33 98.3 98 28 92/61 98 Room Air 02/18/19 14:20 98.2 87 22 78/50 97 Room Air 02/18/19 13:35 98.5 90 16 122/83 100 Room Air 02/18/19 12:17 105 22 Room Air 02/18/19 12:17 98.5 89 22 118/70 99 Room Air 02/18/19 12:08 98.1 101 24 101/82 (88) 98 Room Air Intake and Output 02/18/19 02/19/19 19:00 07:00 Intake Total 2330.0 ml 711.4 ml Output Total 0 ml 845 ml Balance 2330.0 ml -133.6 ml Intake Oral 0 ml IV Total 2330.0 ml 711.4 ml Output Urine Total 0 ml 595 ml Stool Total 250 ml Labs Test 02/18/19 12:50 02/18/19 14:18 02/19/19 03:55 02/19/19 08:15 White Blood Count 12.1 K/UL (4.8-10.8) 12.0 K/UL (4.8-10.8) 12.3 K/UL (4.8-10.8) Red Blood Count 3.84 M/UL (4.20-5.40) 2.90 M/UL (4.20-5.40) 3.03 M/UL (4.20-5.40) Hemoglobin 10.3 G/DL (12.0-16.0) 7.6 G/DL (12.0-16.0) 8.0 G/DL (12.0-16.0) Hematocrit 36.4 % (37.0-47.0) 26.4 % (37.0-47.0) 27.4 % (37.0-47.0) Mean Corpuscular Volume 95 FL (80-99) 91 FL (80-99) 91 FL (80-99) Mean Corpuscular Hemoglobin 26.7 PG (27.0-31.0) 26.3 PG (27.0-31.0) 26.5 PG (27.0-31.0) Mean Corpuscular Hemoglobin Concent 28.2 G/DL (32.0-36.0) 28.9 G/DL (32.0-36.0) 29.3 G/DL (32.0-36.0) Red Cell Distribution Width 18.2 % (11.6-14.8) 17.7 % (11.6-14.8) 17.5 % (11.6-14.8) Platelet Count 339 K/UL (150-450) 238 K/UL (150-450) 230 K/UL (150-450) Mean Platelet Volume 7.5 FL (6.5-10.1) 8.3 FL (6.5-10.1) 8.5 FL (6.5-10.1) Neutrophils (%) (Auto) 73.1 % (45.0-75.0) % (45.0-75.0) 63.0 % (45.0-75.0) Lymphocytes (%) (Auto) 23.0 % (20.0-45.0) % (20.0-45.0) 31.1 % (20.0-45.0) Monocytes (%) (Auto) 3.1 % (1.0-10.0) % (1.0-10.0) 4.4 % (1.0-10.0) Eosinophils (%) (Auto) 0.5 % (0.0-3.0) % (0.0-3.0) 0.7 % (0.0-3.0) Basophils (%) (Auto) 0.4 % (0.0-2.0) % (0.0-2.0) 0.7 % (0.0-2.0) Prothrombin Time 10.8 SEC (9.30-11.50) Prothromb Time International Ratio 1.0 (0.9-1.1) Activated Partial Thromboplast Time 19 SEC (23-33) Urine Color Pale yellow Urine Appearance Cloudy Urine pH 8 (4.5-8.0) Urine Specific [place] 1.010 (1.005-1.035) Urine Protein 3+ (NEGATIVE) Urine Glucose (UA) 4+ (NEGATIVE) Urine Ketones Negative (NEGATIVE) Urine Blood 3+ (NEGATIVE) Urine Nitrite Negative (NEGATIVE) Urine Bilirubin Negative (NEGATIVE) Urine Urobilinogen Normal MG/DL (0.0-1.0) Urine Leukocyte Esterase 3+ (NEGATIVE) Urine RBC 10-15 /HPF (0 - 2) Urine WBC Tntc /HPF (0 - 2) Urine Squamous Epithelial Cells Few /LPF (NONE/OCC) Urine Bacteria Few /HPF (NONE) Sodium Level 163 MMOL/L (136-145) 169 MMOL/L (136-145) Potassium Level 6.1 MMOL/L (3.5-5.1) 3.0 MMOL/L (3.5-5.1) Chloride Level 125 MMOL/L (98-107) 131 MMOL/L (98-107) Carbon Dioxide Level 35 MMOL/L (21-32) 31 MMOL/L (21-32) Anion Gap 4 mmol/L (5-15) 5 mmol/L (5-15) Blood Urea Nitrogen 119 mg/dL (7-18) 100 mg/dL (7-18) Creatinine 2.2 MG/DL (0.55-1.30) 1.4 MG/DL (0.55-1.30) Estimat Glomerular Filtration Rate mL/min (>60) mL/min (>60) Glucose Level 918 MG/DL (74-106) 130 MG/DL (74-106) Calcium Level 10.5 MG/DL (8.5-10.1) 8.9 MG/DL (8.5-10.1) Total Bilirubin 0.3 MG/DL (0.2-1.0) 0.2 MG/DL (0.2-1.0) Aspartate Amino Transf (AST/SGOT) 18 U/L (15-37) 17 U/L (15-37) Alanine Aminotransferase (ALT/SGPT) 12 U/L (12-78) 10 U/L (12-78) Alkaline Phosphatase 181 U/L (46-116) 91 U/L (46-116) Total Creatine Kinase 210 U/L (26-308) 164 U/L (26-308) Creatine Kinase MB 1.3 NG/ML (0.0-3.6) Creatine Kinase MB Relative Index 0.6 Troponin I 0.000 ng/mL (0.000-0.056) 0.000 ng/mL (0.000-0.056) Pro-B-Type Natriuretic Peptide 670 pg/mL (0-125) 612 pg/mL (0-125) Total Protein 10.1 G/DL (6.4-8.2) 7.9 G/DL (6.4-8.2) Albumin 2.0 G/DL (3.4-5.0) 1.5 G/DL (3.4-5.0) Globulin 8.1 g/dL 6.4 g/dL Albumin/Globulin Ratio 0.2 (1.0-2.7) 0.2 (1.0-2.7) Lipase 522 U/L (73-393) 217 U/L (73-393) Arterial Blood pH 7.369 (7.350-7.450) Arterial Blood Partial Pressure CO2 56.1 mmHg (35.0-45.0) Arterial Blood Partial Pressure O2 66.8 mmHg (75.0-100.0) Arterial Blood HCO3 31.6 mmol/L (22.0-26.0) Arterial Blood Oxygen Saturation 91.5 % (95-100) Arterial Blood Base Excess 5.3 (-2-2) Brock Test Positive Differential Total Cells Counted 100 Neutrophils % (Manual) 70 % (45-75) Lymphocytes % (Manual) 25 % (20-45) Monocytes % (Manual) 2 % (1-10) Eosinophils % (Manual) 3 % (0-3) Basophils % (Manual) 0 % (0-2) Band Neutrophils 0 % (0-8) Platelet Estimate Adequate Platelet Morphology Normal Hypochromasia 1+ Anisocytosis 1+ Hemoglobin A1c 10.1 % (4.3-6.0) Uric Acid 6.0 MG/DL (2.6-7.2) Phosphorus Level 2.6 MG/DL (2.5-4.9) Magnesium Level 2.0 MG/DL (1.8-2.4) Iron Level 14 ug/dL (50-175) Total Iron Binding Capacity 132 ug/dL (250-450) Percent Iron Saturation 11 % (15-50) Unsaturated Iron Binding 118 ug/dL (112-346) Ferritin 619 NG/ML (8-388) Gamma Glutamyl Transpeptidase 47 U/L (5-85) Ammonia 19 umol/L (11-32) C-Reactive Protein, Quantitative 33.7 mg/dL (0.00-0.90) Triglycerides Level 85 MG/DL (30-150) Cholesterol Level 114 MG/DL (< 200) LDL Cholesterol 61 mg/dL (<100) HDL Cholesterol 47 MG/DL (40-60) Cholesterol/HDL Ratio 2.4 (3.3-4.4) Vitamin B12 Level 1526 PG/ML (193-986) Folate 81.1 NG/ML (8.6-58.9) Thyroid Stimulating Hormone (TSH) 0.697 uiU/mL (0.358-3.740) Random Vancomycin Level 16.9 ug/mL Acetone Level Negative (NEGATIVE) Micro Microbiology Date/Time Source Procedure Growth Status 02/18/19 20:45 Sacral Wound Gram Stain - Final Resulted 02/18/19 20:45 Sacral Wound Wound Culture Pending Resulted Height (Feet): 5 Height (Inches): 7.00 Weight (Pounds): 147 Objective General Appearance: severe distress, lethargic, Chronically Ill Head: normocephalic, atraumatic Eyes: bilateral eye PERRL, bilateral eye EOMI ENT: dry mucus membranes Neck: full range of motion, supple, no meningismus Respiratory: chest non-tender, respiratory distress, rhonchi. CPAP+ Cardiovascular: regular rate, rhythm, no murmur, tachycardia Gastrointestinal: normal bowel sounds, non tender- Reducible abdominal wall hernia. COLOSTOMY+, GT++ Rectal: other - large sacral Stage 4 ulcer Tobin Stover MD Feb 19, 2019 18:32
--- NOTE | 2019-02-19 19:10 | NUR ---
HAND-OFF: Report given to HELEN Quiroga.
--- NOTE | 2019-02-19 19:20 | NUR ---
NURSE NOTES: Report received from HELEN Humphrey. Pt in bed sleeping comfortably, easily arousable to verbal and tactile stimuli. Oriented to name only. Sinus rhythm on monitoring specialist HR 92. On N/C 2L satting 100%. G-tube intact, no residual NPO. HOB elevated. colostomy in LUQ in place. Brown pasty BM noted on colostomy bag. Agarwal in place draining to gravity.n Right femoral TLC and left FA G20 patent and asymptomatic running D5W at 100cc/hr. Bed alarm on. Bed in lowest position. Side rails up x3. with P200 mattress for wound management. No s/s of hypo/hyperglycemia. Will continue plan of care.
--- NOTE | 2019-02-19 19:45 | Consultation ---
DATE OF CONSULTATION: 02/19/2019 INFECTIOUS DISEASE CONSULTATION CONSULTING PHYSICIAN: Roland Navarro M.D. PRIMARY ATTENDING PHYSICIAN: Danial Walden M.D. REASON FOR CONSULT: Sepsis, complicated UTI. HISTORY OF PRESENT ILLNESS: This is an 83-year-old female who is a senior living resident, admitted yesterday because of altered mental status and hyperglycemia. In hospital, the blood sugar was 918. She had hypernatremia, leukocytosis, tachycardia, and acute renal failure, admitted into ICU, getting insulin drip and noncommunicative. 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 ALLERGIES: Allergic to allopurinol. MEDICATIONS: Cefepime, vancomycin, insulin, Levemir, potassium chloride, albuterol, ipratropium, and norepinephrine. SOCIAL HISTORY: . [facility] resident, with poor mental and functional status, bedbound, noncommunicative. PHYSICAL EXAMINATION: VITAL SIGNS: Temperature 98.5, pulse 105, and blood pressure 96/39. HEAD AND NECK: [place] conjunctivae. HEART: Tachycardic. LUNGS: Clear. ABDOMEN: Status post colostomy. Status post G-tube. EXTREMITIES: No edema. She has muscle atrophy. She has a scar of knee surgery in the right side. LABORATORY AND DIAGNOSTIC DATA: WBC is 12.3, hemoglobin 8, hematocrit 27.4, and platelets 130. Sodium 169, potassium 3, chloride 131, bicarb 31, BUN 100, and creatinine 1.4. Glucose 130. Hemoglobin A1c 10.1. Lipase was elevated at 522. Aceton level negative. UA showed wbc's too numerous to count, rbc's 20-50, leukocyte esterase 2+. Urine culture is growing gram-negative bacilli. Wound culture is pending. CT scan of the abdomen and pelvis showed Bronchiectasis, status post cholecystectomy, status post hysterectomy, nephrolithiasis, distal right ureteral calculus resulted in hydronephrosis and hydroureter. 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 RECOMMENDATION: We will continue with cefepime and vancomycin. We will follow up the cultures and narrow antibiotic. At the end of my exam, I thank Dr. Walden for involving me in the care of this patient. Roland Navarro M.D. DR: MAX JOB#: [id number] CC: JEN
--- NOTE | 2019-02-19 19:53 | Cardiology Report ---
APPROVED REPORT EKG Measurement Heart [id number] Sinus tachycardia Nonspecific T wave abnormality Abnormal ECG
[2019-02-19] MEDS ORDERED: Cefepime HCl 1 GM in D5W 55 ML IVPB SCH (20:00)
[2019-02-19] MEDS ORDERED: Dyna-Hex 2% Top Sol 2oz TOPIC SCH (20:00)
[2019-02-19] MEDS ORDERED: Atorvastatin 20mg tab ORAL SCH (21:00)
--- NOTE | 2019-02-19 21:20 | NUR ---
NURSE NOTES: Patient awake,alert able to verbalize needs to staff. Sinus rhythm on monitor car operator HR 90. On N/C 2L satting 100%. Bed alarm on. Bed in lowest position. with P200 mattress for wound management. Turned and repositioned. No s/s of hypo/hyperglycemia. Call light within easy reach. Will continue plan of care.
--- NOTE | 2019-02-19 23:20 | NUR ---
NURSE NOTES: Patient in bed sleeping comfortably. Sinus rhythm on library monitor HR 90. On N/C 2L satting 100%. Turned and repositioned. No s/s of hypo/hyperglycemia. Frequent visual checks continued.Call light within easy reach. Will continue plan of care.
[2019-02-20] VITALS (20 sets, daily range): BP systolic 94–164; BP diastolic 38–62
--- NOTE | 2019-02-20 00:15 | History and Physical Report ---
DATE OF ADMISSION: 02/18/2019 HISTORY OF PRESENT ILLNESS: The patient does not want to talk, does not want to answer questions, says no to everything. The patient is admitted to ICU on insulin drip. Also was initially hypotensive. Admitted to ICU on insulin drip for hyperglycemia, severe hypernatremia, acute renal failure, hypokalemia, sepsis, UTI, and renal failure, admitted for all those reasons. Cannot get any history from the patient. The patient is very weak at this point. PAST MEDICAL HISTORY: NIDDM, possible psychosis, history of decubitus ulcers, the patient has chronic renal insufficiency. ALLERGIES: To allopurinol. PAST SURGICAL HISTORY: Unable to obtain, but does have colostomy and also has right knee surgical scar. MEDICATIONS: Vitamin C, folic acid, hydralazine, multivitamins, risperidone, zinc sulfate . SOCIAL HISTORY: Cannot get social history. REVIEW OF SYSTEMS: Unable to obtain. The patient is not answering questions. Says no to everything. PHYSICAL EXAMINATION: VITAL SIGNS: Temperature is 98.8, pulse is 91, blood pressure is 90/43. HEENT: PERRLA. NECK: Supple. No lymphadenopathy. CHEST: Clear to auscultation. CARDIOVASCULAR: Regular rate and rhythm. No murmurs or extra sounds. GASTROINTESTINAL: Soft, nontender, nondistended. No organomegaly. EXTREMITIES: No edema. Moves all four extremities. NEUROLOGIC: Sensory intact to light touch. Does not follow neurologic exam. Responds to noxious stimuli. Oriented x1. Reflexes in both sides. Has generalized weakness. LABORATORY DATA: WBC of 12.1, hemoglobin 10.3, platelets of 339. Sodium 159, potassium 3, BUN of 100, creatinine 1.4, glucose was in the 900s initially. Imaging showed emphysematous cystitis. ASSESSMENT AND PLAN: Hyperglycemia. Also severe hypernatremia, acute renal failure, hypokalemia. I have asked Dr. Ebenezer Carver as well as Dr. Roland Navarro as well as Dr. Dunbar as well as Dr. Arias, Dr. Cifuentes, Dr. Vora, and Dr. Day to see the patient for the management of this complex patient and to help with treatment and plan of care. Ali Jaime Walden DR: KAZ JOB#: [id number] CC:
--- NOTE | 2019-02-20 01:20 | NUR ---
NURSE NOTES: Turned and repositioned patient every 2 hours. No s/s of acute distress noted. No s/s of hypo/hyperglycemia. Call light within easy reach. Will continue plan of care.
[2019-02-20] MEDS: Albuterol/Ipratropium 3ml neb HHN SCH ×6 (03:01→23:00)
--- NOTE | 2019-02-20 03:20 | NUR ---
NURSE NOTES: Bed bath given tolerated well. Patient refused oral care, offered 3x explained the importance v/s risk and benefits. will offer again.
[2019-02-20 05:19] LABS: ALANINE AMINOTRANSFERASE 9 U/L (12-78); ALBUMIN 1.8 G/DL (3.4-5.0); ALBUMIN/GLOBULIN RATIO 0.4 (1.0-2.7); ALKALINE PHOSPHATASE 73 U/L (46-116); ANION GAP 8 mmol/L (5-15); ASPARTATE AMINO TRANSFERASE 16 U/L (15-37); BILIRUBIN,TOTAL 0.3 MG/DL (0.2-1.0); BLOOD UREA NITROGEN 69 mg/dL (7-18); CARBON DIOXIDE 27 MMOL/L (21-32); CHLORIDE 130 MMOL/L (98-107); CREATININE 1.2 MG/DL (0.55-1.30); POTASSIUM 3.4 MMOL/L (3.5-5.1)
--- NOTE | 2019-02-20 05:20 | NUR ---
NURSE NOTES: Patient in bed no s/s of acute distress noted. On 2L oxygen via N/C satting 100%. No s/s of hypo/hyperglycemia. GT intact no residual. HOB elevated. Bed alarm on. Bed locked and in low position. Will continue plan of care
[2019-02-20 05:33] LABS: PHOSPHORUS 2.6 MG/DL (2.5-4.9)
[2019-02-20 06:12] LABS: SODIUM 165 MMOL/L (136-145)
[2019-02-20] MEDS: NovoLOG Insulin Flexpen SUBQ SCH ×4 (06:54→20:20)
--- NOTE | 2019-02-20 07:15 | NUR ---
HAND-OFF: Report given to Milagro CERVANTES.
--- NOTE | 2019-02-20 07:20 | NUR ---
NURSE NOTES: Report received from HELEN Quiroga. Pt is sleeping in bed. Able to wake up, talk, and move upper extremities. Sinus rhythm on teletypesetter monitor. On N/C 2L. G-tube in RUQ and colostomy in LUQ in place. Agarwal in place draining to gravity. Right femoral TLC and left FA G20 patent and asymptomatic. D5W is running at 100cc/hr. Bed in lowest position. Side rails up x3. Will resume plan of care.
[2019-02-20 07:43] LABS: HEMATOCRIT 25.1 % (37.0-47.0); HEMOGLOBIN 7.3 G/DL (12.0-16.0); MEAN CORPUSCULAR VOLUME 91 FL (80-99); PLATELET COUNT 189 K/UL (150-450); RED BLOOD COUNT 2.75 M/UL (4.20-5.40); RED CELL DISTRIBUTION WIDTH 17.7 % (11.6-14.8); WHITE BLOOD COUNT 10.6 K/UL (4.8-10.8)
[2019-02-20] MEDS: Aspirin EC 81mg tab ORAL SCH (09:20)
[2019-02-20] MEDS: Levemir Flexpen SUBQ SCH ×2 (09:21→17:38)
--- NOTE | 2019-02-20 09:30 | NUR ---
NURSE NOTES: Pt refused oral care and resistive to care. Risks given to the patient. Turned and repositioned pt.
[2019-02-20] MEDS ORDERED: Pantoprazole Inj IVP SCH (10:30)
--- NOTE | 2019-02-20 10:35 | GI Progress Note ---
Assessment/Plan Problems: (1) Electrolyte imbalance ICD Codes: E87.8 - Other disorders of electrolyte and fluid balance, not elsewhere classified SNOMED: 162040459 (2) Sepsis ICD Codes: A41.9 - Sepsis, unspecified organism SNOMED: 90247368 (3) Decubitus ulcer of sacral region, stage 4 ICD Codes: L89.154 - Pressure ulcer of sacral region, stage 4 SNOMED: 497993196, 707419699 (4) Altered level of consciousness ICD Codes: R40.4 - Transient alteration of awareness SNOMED: 2196090 (5) Renal failure (ARF), acute on chronic ICD Codes: N17.9 - Acute kidney failure, unspecified; N18.9 - Chronic kidney disease, unspecified SNOMED: 388820850 (6) Hypotension ICD Codes: I95.9 - Hypotension, unspecified SNOMED: 10129222 (7) Anemia ICD Codes: D64.9 - Anemia, unspecified SNOMED: 118592192 (8) Colostomy status ICD Codes: Z93.3 - Colostomy status SNOMED: 42872808, 152440938, 777168116 (9) PEG (percutaneous endoscopic gastrostomy) status ICD Codes: Z93.1 - Gastrostomy status SNOMED: 059433127, 560223276 Status: unchanged Status Narrative Discussed with Dr. Vora. Assessment/Plan AMS G Tube dependent colostomy dependent hypernatremia no plans for GI procedures at this time, only if emergent hold feedings until more stable electrolyte correction anemia work up OB stool r/o GI bleed monitor H&H, prn transfusions bowel regimen ppi hold iron supplementation given elevated ferritin levels GT/colostomy site care fu labs The patient was seen and examined at bedside and all new and available data was reviewed in the patients chart. I agree with the above findings, impression and plan. (Patient seen earlier today. Signature stamp does not reflect patient encounter time.). - Horacio Vora MD Subjective Subjective limited Objective Last 24 Hour Vital Signs Date Time Temp Pulse Resp B/P (MAP) Pulse Ox O2 Delivery O2 Flow Rate FiO2 02/20/19 10:00 77 27 133/47 (75) 100 02/20/19 09:00 98.7 86 20 111/59 (76) 100 02/20/19 08:00 86 02/20/19 08:00 Nasal Cannula 2.0 02/20/19 08:00 86 22 113/51 (71) 100 02/20/19 07:20 80 16 100 Nasal Cannula 2.0 28 02/20/19 07:19 88 18 100 Nasal Cannula 2.0 28 02/20/19 07:19 100 Nasal Cannula 2.0 28 02/20/19 07:12 88 14 100 Nasal Cannula 2.0 28 02/20/19 07:00 85 21 124/49 (74) 100 02/20/19 06:00 85 21 119/48 (71) 100 02/20/19 05:00 85 19 127/49 (75) 100 02/20/19 04:00 98.6 84 19 119/52 (74) 100 02/20/19 04:00 Nasal Cannula 2.0 02/20/19 04:00 87 02/20/19 03:14 81 18 100 Nasal Cannula 2.0 28 02/20/19 03:01 83 13 100 Nasal Cannula 2.0 28 02/20/19 03:00 78 19 122/38 (66) 100 02/20/19 02:00 92 19 127/41 (69) 100 02/20/19 01:00 90 19 164/49 (87) 100 02/20/19 00:00 98.0 91 19 154/62 (92) 100 02/20/19 00:00 92 02/20/19 00:00 Nasal Cannula 2.0 02/19/19 23:14 85 18 100 Nasal Cannula 2.0 28 02/19/19 23:07 86 21 100 Nasal Cannula 2.0 28 02/19/19 23:00 92 19 138/48 (78) 100 02/19/19 22:00 92 19 134/49 (77) 100 02/19/19 21:30 134/49 02/19/19 21:00 Nasal Cannula 2.0 02/19/19 21:00 92 19 134/49 (77) 100 02/19/19 20:30 92 19 119/49 (72) 100 02/19/19 20:00 98.8 91 6 84/28 (46) 100 02/19/19 20:00 89 02/19/19 19:18 91 18 98 Nasal Cannula 2.0 28 02/19/19 19:08 92 19 100 Nasal Cannula 2.0 28 02/19/19 19:08 100 Nasal Cannula 2.0 28 02/19/19 19:08 92 19 100 Nasal Cannula 2.0 28 02/19/19 19:00 91 15 93/43 (60) 100 02/19/19 19:00 92 16 93/43 (60) 100 02/19/19 18:00 91 15 102/27 (52) 100 02/19/19 17:00 98.2 100 19 120/83 (95) 100 02/19/19 16:00 100 02/19/19 16:00 99 16 120/81 (94) 100 02/19/19 16:00 2.0 02/19/19 16:00 Nasal Cannula 2.0 02/19/19 15:12 94 18 98 Nasal Cannula 2.0 28 02/19/19 15:03 94 20 100 Nasal Cannula 2.0 28 02/19/19 15:00 93 18 91/36 (54) 100 02/19/19 14:00 98 13 85/47 (60) 100 02/19/19 13:00 98.0 102 19 107/47 (67) 100 02/19/19 12:00 104 17 95/34 (54) 100 02/19/19 12:00 Nasal Cannula 2.0 02/19/19 12:00 106 02/19/19 12:00 2.0 02/19/19 11:15 103 18 100 Nasal Cannula 2.0 28 02/19/19 11:00 104 17 103/43 (63) 100 02/19/19 10:57 105 20 100 Nasal Cannula 2.0 28 Intake and Output 02/19/19 02/20/19 19:00 07:00 Intake Total 1985.833 ml 1153.33 ml Output Total 760 ml 765 ml Balance 1225.833 ml 388.33 ml Intake Oral 0 ml 0 ml Free Water 0 ml 0 ml IV Total 1985.833 ml 1153.33 ml Output Urine Total 560 ml 765 ml Stool Total 200 ml # Bowel Movements 30 Laboratory Tests Test 02/20/19 03:35 02/20/19 07:15 Sodium Level 165 MMOL/L (136-145) *H Potassium Level 3.4 MMOL/L (3.5-5.1) L Chloride Level 130 MMOL/L (98-107) H Carbon Dioxide Level 27 MMOL/L (21-32) Anion Gap 8 mmol/L (5-15) Blood Urea Nitrogen 69 mg/dL (7-18) H Creatinine 1.2 MG/DL (0.55-1.30) Estimat Glomerular Filtration Rate mL/min (>60) Glucose Level 238 MG/DL (74-106) #H Uric Acid 5.6 MG/DL (2.6-7.2) Calcium Level 8.0 MG/DL (8.5-10.1) L Phosphorus Level 2.6 MG/DL (2.5-4.9) Magnesium Level 1.9 MG/DL (1.8-2.4) Total Bilirubin 0.3 MG/DL (0.2-1.0) Aspartate Amino Transf (AST/SGOT) 16 U/L (15-37) Alanine Aminotransferase (ALT/SGPT) 9 U/L (12-78) L Alkaline Phosphatase 73 U/L (46-116) C-Reactive Protein, Quantitative 69.4 mg/dL (0.00-0.90) H Pro-B-Type Natriuretic Peptide 3788 pg/mL (0-125) H Total Protein 6.7 G/DL (6.4-8.2) Albumin 1.8 G/DL (3.4-5.0) L Globulin 4.9 g/dL Albumin/Globulin Ratio 0.4 (1.0-2.7) L White Blood Count 10.6 K/UL (4.8-10.8) Red Blood Count 2.75 M/UL (4.20-5.40) L Hemoglobin 7.3 G/DL (12.0-16.0) L Hematocrit 25.1 % (37.0-47.0) L Mean Corpuscular Volume 91 FL (80-99) Mean Corpuscular Hemoglobin 26.5 PG (27.0-31.0) L Mean Corpuscular Hemoglobin Concent 29.0 G/DL (32.0-36.0) L Red Cell Distribution Width 17.7 % (11.6-14.8) H Platelet Count 189 K/UL (150-450) Mean Platelet Volume 8.7 FL (6.5-10.1) Neutrophils (%) (Auto) % (45.0-75.0) Lymphocytes (%) (Auto) % (20.0-45.0) Monocytes (%) (Auto) % (1.0-10.0) Eosinophils (%) (Auto) % (0.0-3.0) Basophils (%) (Auto) % (0.0-2.0) Differential Total Cells Counted 100 Neutrophils % (Manual) 65 % (45-75) Lymphocytes % (Manual) 26 % (20-45) Monocytes % (Manual) 2 % (1-10) Eosinophils % (Manual) 2 % (0-3) Basophils % (Manual) 0 % (0-2) Band Neutrophils 5 % (0-8) Platelet Estimate Adequate Platelet Morphology Normal Hypochromasia 1+ Anisocytosis 1+ Height (Feet): 5 Height (Inches): 7.00 Weight (Pounds): 147 General Appearance: no apparent distress Cardiovascular: normal rate Respiratory/Chest: normal breath sounds, no respiratory distress Abdominal Exam: normal bowel sounds, non tender, soft, GT site, other - colostomy Extremities: non-tender Luis Arechiga NP Feb 20, 2019 10:35
--- NOTE | 2019-02-20 11:04 | NUR ---
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 98.0 HR 92 RR 19 B/P 154/62 NC-2L SAT 100% RBC 2.75 HGB 7.3 SODIUM 165 POTASSIUM 3.4 CHLORIDE 130 BUN 69 GLUCOSE 238 CALCIUM 8.0 ALT 9 CRPROTEIN 69.4 PRO-BTNP 3788 ALBUMIN 1.8 IS: ALBUTEROL HHN LEVEMIR SUBQ ASPIRIN ORAL NOVOLOG SUBQ DEXTROSE IV LIPITOR ORAL CEFEPIME IVPB DYNAHEX TOPIC VANCOMYCIN IVPB KCL IVPB NOREPINEPHRINE IV ICU STATUS
--- NOTE | 2019-02-20 11:30 | NUR ---
NURSE NOTES: pRBC started. Co-signed with HELEN El. Pre-transfusion temp 97.8, BP 94/45, HR 72. Pt is sleeping in bed. Dr Crystal Stewart here to see the patient. Updated him with pt's current condition. No new orders. Will continue to monitor.
--- NOTE | 2019-02-20 11:33 | Infectious Diseases Prog Note ---
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 RECOMMENDATION: We will continue with cefepime and discontinue vancomycin. We will follow up the cultures . Subjective ROS Limited/Unobtainable: Yes Endocrine: Reports: other - off insulin drip Allergies: Coded Allergies: ALLOPURINOL (Verified Allergy, Unknown, 12/20/18) Objective Vital Signs Last 24 Hour Vital Signs Date Time Temp Pulse Resp B/P (MAP) Pulse Ox O2 Delivery O2 Flow Rate FiO2 02/20/19 10:52 78 18 100 Nasal Cannula 2.0 28 02/20/19 10:42 71 20 100 Nasal Cannula 2.0 28 02/20/19 10:00 77 27 133/47 (75) 100 02/20/19 09:00 98.7 86 20 111/59 (76) 100 02/20/19 08:00 86 02/20/19 08:00 Nasal Cannula 2.0 02/20/19 08:00 86 22 113/51 (71) 100 02/20/19 07:20 80 16 100 Nasal Cannula 2.0 28 02/20/19 07:19 88 18 100 Nasal Cannula 2.0 28 02/20/19 07:19 100 Nasal Cannula 2.0 28 02/20/19 07:12 88 14 100 Nasal Cannula 2.0 28 02/20/19 07:00 85 21 124/49 (74) 100 02/20/19 06:00 85 21 119/48 (71) 100 02/20/19 05:00 85 19 127/49 (75) 100 02/20/19 04:00 98.6 84 19 119/52 (74) 100 02/20/19 04:00 Nasal Cannula 2.0 02/20/19 04:00 87 02/20/19 03:14 81 18 100 Nasal Cannula 2.0 28 02/20/19 03:01 83 13 100 Nasal Cannula 2.0 28 02/20/19 03:00 78 19 122/38 (66) 100 02/20/19 02:00 92 19 127/41 (69) 100 02/20/19 01:00 90 19 164/49 (87) 100 02/20/19 00:00 98.0 91 19 154/62 (92) 100 02/20/19 00:00 92 02/20/19 00:00 Nasal Cannula 2.0 02/19/19 23:14 85 18 100 Nasal Cannula 2.0 28 02/19/19 23:07 86 21 100 Nasal Cannula 2.0 28 02/19/19 23:00 92 19 138/48 (78) 100 02/19/19 22:00 92 19 134/49 (77) 100 02/19/19 21:30 134/49 02/19/19 21:00 Nasal Cannula 2.0 02/19/19 21:00 92 19 134/49 (77) 100 02/19/19 20:30 92 19 119/49 (72) 100 02/19/19 20:00 98.8 91 6 84/28 (46) 100 02/19/19 20:00 89 02/19/19 19:18 91 18 98 Nasal Cannula 2.0 28 02/19/19 19:08 92 19 100 Nasal Cannula 2.0 28 02/19/19 19:08 100 Nasal Cannula 2.0 28 02/19/19 19:08 92 19 100 Nasal Cannula 2.0 28 02/19/19 19:00 91 15 93/43 (60) 100 02/19/19 19:00 92 16 93/43 (60) 100 02/19/19 18:00 91 15 102/27 (52) 100 02/19/19 17:00 98.2 100 19 120/83 (95) 100 02/19/19 16:00 100 02/19/19 16:00 99 16 120/81 (94) 100 02/19/19 16:00 2.0 02/19/19 16:00 Nasal Cannula 2.0 02/19/19 15:12 94 18 98 Nasal Cannula 2.0 28 02/19/19 15:03 94 20 100 Nasal Cannula 2.0 28 02/19/19 15:00 93 18 91/36 (54) 100 02/19/19 14:00 98 13 85/47 (60) 100 02/19/19 13:00 98.0 102 19 107/47 (67) 100 02/19/19 12:00 104 17 95/34 (54) 100 02/19/19 12:00 Nasal Cannula 2.0 02/19/19 12:00 106 02/19/19 12:00 2.0 Height (Feet): 5 Height (Inches): 7.00 Weight (Pounds): 147 General Appearance: no acute distress HEENT: mucous membranes moist Respiratory/Chest: lungs clear Cardiovascular: normal rate, other - femoral central line Abdomen: soft, non tender Extremities: no edema Neurologic/Psychiatric: unresponsiveness Microbiology Date/Time Source Procedure Growth Status 02/18/19 12:50 Blood Blood Culture - Preliminary NO GROWTH AFTER 24 HOURS Resulted 02/18/19 12:35 Blood Blood Culture - Preliminary NO GROWTH AFTER 24 HOURS Resulted 02/18/19 12:50 Urine,Clean Catch Urine Culture - Preliminary Morganella Morg Spp Morganii Resulted 02/18/19 20:45 Sacral Wound Gram Stain - Final Resulted 02/18/19 20:45 Wound Culture - Preliminary Gram Negative Bacillus 1 Resulted Laboratory Tests Test 02/20/19 03:35 02/20/19 07:15 Sodium Level 165 MMOL/L (136-145) *H Potassium Level 3.4 MMOL/L (3.5-5.1) L Chloride Level 130 MMOL/L (98-107) H Carbon Dioxide Level 27 MMOL/L (21-32) Anion Gap 8 mmol/L (5-15) Blood Urea Nitrogen 69 mg/dL (7-18) H Creatinine 1.2 MG/DL (0.55-1.30) Estimat Glomerular Filtration Rate mL/min (>60) Glucose Level 238 MG/DL (74-106) #H Uric Acid 5.6 MG/DL (2.6-7.2) Calcium Level 8.0 MG/DL (8.5-10.1) L Phosphorus Level 2.6 MG/DL (2.5-4.9) Magnesium Level 1.9 MG/DL (1.8-2.4) Total Bilirubin 0.3 MG/DL (0.2-1.0) Aspartate Amino Transf (AST/SGOT) 16 U/L (15-37) Alanine Aminotransferase (ALT/SGPT) 9 U/L (12-78) L Alkaline Phosphatase 73 U/L (46-116) C-Reactive Protein, Quantitative 69.4 mg/dL (0.00-0.90) H Pro-B-Type Natriuretic Peptide 3788 pg/mL (0-125) H Total Protein 6.7 G/DL (6.4-8.2) Albumin 1.8 G/DL (3.4-5.0) L Globulin 4.9 g/dL Albumin/Globulin Ratio 0.4 (1.0-2.7) L White Blood Count 10.6 K/UL (4.8-10.8) Red Blood Count 2.75 M/UL (4.20-5.40) L Hemoglobin 7.3 G/DL (12.0-16.0) L Hematocrit 25.1 % (37.0-47.0) L Mean Corpuscular Volume 91 FL (80-99) Mean Corpuscular Hemoglobin 26.5 PG (27.0-31.0) L Mean Corpuscular Hemoglobin Concent 29.0 G/DL (32.0-36.0) L Red Cell Distribution Width 17.7 % (11.6-14.8) H Platelet Count 189 K/UL (150-450) Mean Platelet Volume 8.7 FL (6.5-10.1) Neutrophils (%) (Auto) % (45.0-75.0) Lymphocytes (%) (Auto) % (20.0-45.0) Monocytes (%) (Auto) % (1.0-10.0) Eosinophils (%) (Auto) % (0.0-3.0) Basophils (%) (Auto) % (0.0-2.0) Differential Total Cells Counted 100 Neutrophils % (Manual) 65 % (45-75) Lymphocytes % (Manual) 26 % (20-45) Monocytes % (Manual) 2 % (1-10) Eosinophils % (Manual) 2 % (0-3) Basophils % (Manual) 0 % (0-2) Band Neutrophils 5 % (0-8) Platelet Estimate Adequate Platelet Morphology Normal Hypochromasia 1+ Anisocytosis 1+ Current Medications Medications (Trade) Dose Ordered Sig/Nora Route PRN Reason Start Time Stop Time Status Last Admin Dose Admin Albuterol/ Ipratropium (Albuterol/ Ipratropium) 3 ml Q4HRT HHN 02/18/19 23:00 02/23/19 22:59 02/20/19 10:51 Aspirin (Ecotrin) 81 mg DAILY ORAL 02/19/19 12:30 03/21/19 12:29 02/20/19 09:20 Atorvastatin Calcium (Lipitor) 40 mg BEDTIME ORAL 02/19/19 21:00 03/21/19 20:59 02/19/19 20:22 Cefepime HCl 1 gm/ Dextrose 55 ml @ 110 mls/hr Q24H IVPB 02/19/19 20:00 02/25/19 19:59 02/19/19 20:21 Chlorhexidine Gluconate (Valentina-Hex 2%) 1 applic DAILY@2000 TOPIC 02/19/19 20:00 03/21/19 19:59 02/19/19 20:21 Dextrose 1,000 ml @ 100 mls/hr Q10H IV 02/19/19 07:09 03/21/19 07:08 02/20/19 03:18 Dextrose (Dextrose 50%) 25 ml Q30M PRN IV Hypoglycemia 02/19/19 09:00 03/21/19 08:59 Dextrose (Dextrose 50%) 50 ml Q30M PRN IV Hypoglycemia 02/19/19 09:00 03/21/19 08:59 Insulin Aspart (NovoLOG) BEFORE MEALS AND HS SUBQ 02/19/19 11:30 03/21/19 11:29 02/20/19 06:54 Insulin Detemir (Levemir) 6 units BID SUBQ 02/19/19 09:00 03/21/19 08:59 02/20/19 09:21 Norepinephrine Bitartrate 4 mg/ Dextrose 250 ml @ 0 mls/hr Q24H IV 02/18/19 21:30 03/20/19 21:29 Pantoprazole (Protonix) 40 mg EVERY 12 HOURS IVP 02/20/19 10:30 03/22/19 10:29 Potassium Chloride 100 ml @ 50 mls/hr Q2H IVPB 02/20/19 11:00 02/20/19 14:59 Vancomycin HCl (Vanco rx to dose) 1 ea DAILY PRN MISC Per rx protocol 02/19/19 09:00 03/20/19 17:14 Vancomycin HCl 750 mg/Sodium Chloride 275 ml @ 183.333 mls/hr Q24H IVPB 02/19/19 18:00 02/24/19 17:59 02/19/19 17:38 Roland Navarro MD Feb 20, 2019 11:33
--- NOTE | 2019-02-20 12:35 | Nephrology Progress Note ---
Assessment/Plan Problem List: (1) Renal failure (ARF), acute on chronic (2) Hypotension (3) Anemia (4) Colostomy status (5) PEG (percutaneous endoscopic gastrostomy) status (6) Electrolyte imbalance Assessment Acute renal failure ? Underlying CKD Severe Dehydration Hyperglycemia- DM OOC A1c High Severe underlying Anemia Electrolyte imbalance UTI PEG Colostomy Severe HypoAlbuminemia Plan Plan; D5W Hydrate Glucose check Albumin bolus as needed K mag Phos supplement as needed monitor lytes, and H&H Per orders Subjective ROS Limited/Unobtainable: No Constitutional: Reports: malaise, weakness Objective Objective Last 24 Hour Vital Signs Date Time Temp Pulse Resp B/P (MAP) Pulse Ox O2 Delivery O2 Flow Rate FiO2 02/20/19 10:52 78 18 100 Nasal Cannula 2.0 28 02/20/19 10:42 71 20 100 Nasal Cannula 2.0 28 02/20/19 10:00 77 27 133/47 (75) 100 02/20/19 09:00 98.7 86 20 111/59 (76) 100 02/20/19 08:00 86 02/20/19 08:00 Nasal Cannula 2.0 02/20/19 08:00 86 22 113/51 (71) 100 02/20/19 07:20 80 16 100 Nasal Cannula 2.0 28 02/20/19 07:19 88 18 100 Nasal Cannula 2.0 28 02/20/19 07:19 100 Nasal Cannula 2.0 28 02/20/19 07:12 88 14 100 Nasal Cannula 2.0 28 02/20/19 07:00 85 21 124/49 (74) 100 02/20/19 06:00 85 21 119/48 (71) 100 02/20/19 05:00 85 19 127/49 (75) 100 02/20/19 04:00 98.6 84 19 119/52 (74) 100 02/20/19 04:00 Nasal Cannula 2.0 02/20/19 04:00 87 02/20/19 03:14 81 18 100 Nasal Cannula 2.0 28 02/20/19 03:01 83 13 100 Nasal Cannula 2.0 28 02/20/19 03:00 78 19 122/38 (66) 100 02/20/19 02:00 92 19 127/41 (69) 100 02/20/19 01:00 90 19 164/49 (87) 100 8/20/19 00:00 98.0 91 19 154/62 (92) 100 02/20/19 00:00 92 02/20/19 00:00 Nasal Cannula 2.0 02/19/19 23:14 85 18 100 Nasal Cannula 2.0 28 02/19/19 23:07 86 21 100 Nasal Cannula 2.0 28 02/19/19 23:00 92 19 138/48 (78) 100 02/19/19 22:00 92 19 134/49 (77) 100 02/19/19 21:30 134/49 02/19/19 21:00 Nasal Cannula 2.0 02/19/19 21:00 92 19 134/49 (77) 100 02/19/19 20:30 92 19 119/49 (72) 100 02/19/19 20:00 98.8 91 6 84/28 (46) 100 02/19/19 20:00 89 02/19/19 19:18 91 18 98 Nasal Cannula 2.0 28 02/19/19 19:08 92 19 100 Nasal Cannula 2.0 28 02/19/19 19:08 100 Nasal Cannula 2.0 28 02/19/19 19:08 92 19 100 Nasal Cannula 2.0 28 02/19/19 19:00 91 15 93/43 (60) 100 02/19/19 19:00 92 16 93/43 (60) 100 02/19/19 18:00 91 15 102/27 (52) 100 02/19/19 17:00 98.2 100 19 120/83 (95) 100 02/19/19 16:00 100 02/19/19 16:00 99 16 120/81 (94) 100 02/19/19 16:00 2.0 02/19/19 16:00 Nasal Cannula 2.0 02/19/19 15:12 94 18 98 Nasal Cannula 2.0 28 02/19/19 15:03 94 20 100 Nasal Cannula 2.0 28 02/19/19 15:00 93 18 91/36 (54) 100 02/19/19 14:00 98 13 85/47 (60) 100 02/19/19 13:00 98.0 102 19 107/47 (67) 100 Intake and Output 02/19/19 02/20/19 19:00 07:00 Intake Total 1985.833 ml 1153.33 ml Output Total 760 ml 765 ml Balance 1225.833 ml 388.33 ml Intake Oral 0 ml 0 ml Free Water 0 ml 0 ml IV Total 1985.833 ml 1153.33 ml Output Urine Total 560 ml 765 ml Stool Total 200 ml # Bowel Movements 30 Laboratory Tests 02/20/19 03:35: Sodium Level 165*H, Potassium Level 3.4L, Chloride Level 130H, Carbon Dioxide Level 27, Anion Gap 8, Blood Urea Nitrogen 69H, Creatinine 1.2, Estimat Glomerular Filtration Rate , Glucose Level 238#H, Uric Acid 5.6, Calcium Level 8.0L, Phosphorus Level 2.6, Magnesium Level 1.9, Total Bilirubin 0.3, Aspartate Amino Transf (AST/SGOT) 16, Alanine Aminotransferase (ALT/SGPT) 9L, Alkaline Phosphatase 73, C-Reactive Protein, Quantitative 69.4H, Pro-B-Type Natriuretic Peptide 3788H, Total Protein 6.7, Albumin 1.8L, Globulin 4.9, Albumin/Globulin Ratio 0.4L 02/20/19 07:15: White Blood Count 10.6, Red Blood Count 2.75L, Hemoglobin 7.3L, Hematocrit 25.1L , Mean Corpuscular Volume 91, Mean Corpuscular Hemoglobin 26.5L, Mean Corpuscular Hemoglobin Concent 29.0L, Red Cell Distribution Width 17.7H, Platelet Count 189, Mean Platelet Volume 8.7, Neutrophils (%) (Auto) , Lymphocytes (%) (Auto) , Monocytes (%) (Auto) , Eosinophils (%) (Auto) , Basophils (%) (Auto) , Differential Total Cells Counted 100, Neutrophils % ( Manual) 65, Lymphocytes % (Manual) 26, Monocytes % (Manual) 2, Eosinophils % ( Manual) 2, Basophils % (Manual) 0, Band Neutrophils 5, Platelet Estimate Adequate, Platelet Morphology Normal, Hypochromasia 1+, Anisocytosis 1+ Height (Feet): 5 Height (Inches): 7.00 Weight (Pounds): 147 General Appearance: no apparent distress Respiratory/Chest: decreased breath sounds Abdomen: distended, other - PEG & Colostomy Servando Cifuentes MD Feb 20, 2019 12:35
--- NOTE | 2019-02-20 13:08 | NUR ---
NURSE NOTES: Turned and repositioned pt. Inappropriate behavior noted. Pt lethargic. VSS. Dr Walden here to see the patient. Updated him with pt's current condition. No new orders.
--- NOTE | 2019-02-20 14:01 | NUR ---
HAND-OFF: Report given to Verena Valdez RN.
--- NOTE | 2019-02-20 14:08 | Pulmonolgy Critical Care Note ---
Critical Care - Asmt/Plan Assessment/Plan: Pulmonary CCM Progress Note HPI Patient is an 83 year old woman from [place], history of Diabetes, admitted with alteration in mental status, very high glucose readings Noted to have a UTI - gas bubbles at the periphery of the dome of the bladder are concerning for intramural gas consistent with emphysematous cystitis, on antiibiotics per ID No reports of vomiting or diarrhea Unknown regarding any fall or trauma Allergies: ALLOPURINOL Past Medical History: Diabetes, Hypertension, Chronic Obstructive Pulmonary Disease, Dyphagia, s/p Gastrostomy Tube, Anemia, Previous CVA, previous colostomy All Other Systems: limited Physical Exam Vital Signs Noted Date Time Temp Pulse Resp B/P (MAP) Pulse Ox O2 Delivery O2 Flow Rate FiO2 02/18/19 12:08 98.1 101 24 101/82 (88) 98 Room Air General Appearance: Chronically ill appearing, altered mental status, no response to verbal command,moans with physical stimuli Head: normocephalic, atraumatic Eyes: bilateral eye PERRL ENT: no angioedema, dry mucus membranes Neck: supple, no LN Respiratory: no respiratory distress, crackles - bilaterally Cardiovascular: tachycardia, HS1, HS2, normal, RRR Gastrointestinal: non tender, soft, other - Colostomy bag noted Musculoskeletal: oupper extremity localizes towards physical stimuli, Neurologic: Significantly decreased GCS patient makes moaning sound to physical stimuli is somewhat purposeful with her upper extremity, otherwise nonverbal does not follow commands Skin: no rash, no edema Impression Severe Hyperglycemia Severe Dehydration Urinary Tract Infection Sepsis Previous Diabetes Hypertension Chronic Obstructive Pulmonary Disease Dysphagia, s/p Gastrostomy Tube Anemia Previous CVA Plan - IV Antibiotics - Blood/Urine cultures - Insulin drip - IV fluids - Monitor labs - Pressors PRN - HHN - O2 PRN - [employer]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 - PPX - Chest and Brain imaging - LE dupplex r/o DVT Labs Test 02/18/19 12:50 White Blood Count 12.1 K/UL (4.8-10.8) Red Blood Count 3.84 M/UL (4.20-5.40) Hemoglobin 10.3 G/DL (12.0-16.0) Hematocrit 36.4 % (37.0-47.0) Mean Corpuscular Volume 95 FL (80-99) Mean Corpuscular Hemoglobin 26.7 PG (27.0-31.0) Mean Corpuscular Hemoglobin Concent 28.2 G/DL (32.0-36.0) Red Cell Distribution Width 18.2 % (11.6-14.8) Platelet Count 339 K/UL (150-450) Mean Platelet Volume 7.5 FL (6.5-10.1) Neutrophils (%) (Auto) 73.1 % (45.0-75.0) Lymphocytes (%) (Auto) 23.0 % (20.0-45.0) Monocytes (%) (Auto) 3.1 % (1.0-10.0) Eosinophils (%) (Auto) 0.5 % (0.0-3.0) Basophils (%) (Auto) 0.4 % (0.0-2.0) Prothrombin Time 10.8 SEC (9.30-11.50) Prothromb Time International Ratio 1.0 (0.9-1.1) Activated Partial Thromboplast Time 19 SEC (23-33) Urine Color Pale yellow Urine Appearance Cloudy Urine pH 8 (4.5-8.0) Urine Specific [place] 1.010 (1.005-1.035) Urine Protein 3+ (NEGATIVE) Urine Glucose (UA) 4+ (NEGATIVE) Urine Ketones Negative (NEGATIVE) Urine Blood 3+ (NEGATIVE) Urine Nitrite Negative (NEGATIVE) Urine Bilirubin Negative (NEGATIVE) Urine Urobilinogen Normal MG/DL (0.0-1.0) Urine Leukocyte Esterase 3+ (NEGATIVE) Urine RBC 10-15 /HPF (0 - 2) Urine WBC Tntc /HPF (0 - 2) Urine Squamous Epithelial Cells Few /LPF (NONE/OCC) Urine Bacteria Few /HPF (NONE) Sodium Level 163 MMOL/L (136-145) Potassium Level 6.1 MMOL/L (3.5-5.1) Chloride Level 125 MMOL/L (98-107) Carbon Dioxide Level 35 MMOL/L (21-32) Anion Gap 4 mmol/L (5-15) Blood Urea Nitrogen 119 mg/dL (7-18) Creatinine 2.2 MG/DL (0.55-1.30) Estimat Glomerular Filtration Rate mL/min (>60) Glucose Level 918 MG/DL (74-106) Calcium Level 10.5 MG/DL (8.5-10.1) Total Bilirubin 0.3 MG/DL (0.2-1.0) Aspartate Amino Transf (AST/SGOT) 18 U/L (15-37) Alanine Aminotransferase (ALT/SGPT) 12 U/L (12-78) Alkaline Phosphatase 181 U/L (46-116) Total Creatine Kinase 210 U/L (26-308) Creatine Kinase MB 1.3 NG/ML (0.0-3.6) Creatine Kinase MB Relative Index 0.6 Troponin I 0.000 ng/mL (0.000-0.056) Pro-B-Type Natriuretic Peptide 670 pg/mL (0-125) Total Protein 10.1 G/DL (6.4-8.2) Albumin 2.0 G/DL (3.4-5.0) Globulin 8.1 g/dL Albumin/Globulin Ratio 0.2 (1.0-2.7) Lipase 522 U/L (73-393) Microbiology Date/Time Source Procedure Growth Status 02/18/19 12:50 Blood Blood Culture - Preliminary NO GROWTH AFTER 24 HOURS Resulted 02/18/19 12:35 Blood Blood Culture - Preliminary NO GROWTH AFTER 24 HOURS Resulted 02/18/19 12:50 Urine,Clean Catch Urine Culture - Preliminary Morganella Morg Spp Morganii Resulted 02/18/19 20:45 Sacral Wound Gram Stain - Final Resulted 02/18/19 20:45 Wound Culture - Preliminary Gram Negative Bacillus 1 Resulted Laboratory Tests Test 02/20/19 03:35 02/20/19 07:15 Sodium Level 165 MMOL/L (136-145) *H Potassium Level 3.4 MMOL/L (3.5-5.1) L Chloride Level 130 MMOL/L (98-107) H Carbon Dioxide Level 27 MMOL/L (21-32) Anion Gap 8 mmol/L (5-15) Blood Urea Nitrogen 69 mg/dL (7-18) H Creatinine 1.2 MG/DL (0.55-1.30) Estimat Glomerular Filtration Rate mL/min (>60) Glucose Level 238 MG/DL (74-106) #H Uric Acid 5.6 MG/DL (2.6-7.2) Calcium Level 8.0 MG/DL (8.5-10.1) L Phosphorus Level 2.6 MG/DL (2.5-4.9) Magnesium Level 1.9 MG/DL (1.8-2.4) Total Bilirubin 0.3 MG/DL (0.2-1.0) Aspartate Amino Transf (AST/SGOT) 16 U/L (15-37) Alanine Aminotransferase (ALT/SGPT) 9 U/L (12-78) L Alkaline Phosphatase 73 U/L (46-116) C-Reactive Protein, Quantitative 69.4 mg/dL (0.00-0.90) H Pro-B-Type Natriuretic Peptide 3788 pg/mL (0-125) H Total Protein 6.7 G/DL (6.4-8.2) Albumin 1.8 G/DL (3.4-5.0) L Globulin 4.9 g/dL Albumin/Globulin Ratio 0.4 (1.0-2.7) L White Blood Count 10.6 K/UL (4.8-10.8) Red Blood Count 2.75 M/UL (4.20-5.40) L Hemoglobin 7.3 G/DL (12.0-16.0) L Hematocrit 25.1 % (37.0-47.0) L Mean Corpuscular Volume 91 FL (80-99) Mean Corpuscular Hemoglobin 26.5 PG (27.0-31.0) L Mean Corpuscular Hemoglobin Concent 29.0 G/DL (32.0-36.0) L Red Cell Distribution Width 17.7 % (11.6-14.8) H Platelet Count 189 K/UL (150-450) Mean Platelet Volume 8.7 FL (6.5-10.1) Neutrophils (%) (Auto) % (45.0-75.0) Lymphocytes (%) (Auto) % (20.0-45.0) Monocytes (%) (Auto) % (1.0-10.0) Eosinophils (%) (Auto) % (0.0-3.0) Basophils (%) (Auto) % (0.0-2.0) Differential Total Cells Counted 100 Neutrophils % (Manual) 65 % (45-75) Lymphocytes % (Manual) 26 % (20-45) Monocytes % (Manual) 2 % (1-10) Eosinophils % (Manual) 2 % (0-3) Basophils % (Manual) 0 % (0-2) Band Neutrophils 5 % (0-8) Platelet Estimate Adequate Platelet Morphology Normal Hypochromasia 1+ Anisocytosis 1+ Current Medications Medications (Trade) Dose Ordered Sig/Nora Route PRN Reason Start Time Stop Time Status Last Admin Dose Admin Albuterol/ Ipratropium (Albuterol/ Ipratropium) 3 ml Q4HRT HHN 02/18/19 23:00 02/23/19 22:59 02/20/19 10:51 Aspirin (Ecotrin) 81 mg DAILY ORAL 02/19/19 12:30 03/21/19 12:29 02/20/19 09:20 Atorvastatin Calcium (Lipitor) 40 mg BEDTIME ORAL 02/19/19 21:00 03/21/19 20:59 02/19/19 20:22 Cefepime HCl 1 gm/ Dextrose 55 ml @ 110 mls/hr Q24H IVPB 02/19/19 20:00 02/25/19 19:59 02/19/19 20:21 Chlorhexidine Gluconate (Valentina-Hex 2%) 1 applic DAILY@2000 TOPIC 02/19/19 20:00 03/21/19 19:59 02/19/19 20:21 Dextrose 1,000 ml @ 100 mls/hr Q10H IV 02/19/19 07:09 03/21/19 07:08 02/20/19 03:18 Dextrose (Dextrose 50%) 25 ml Q30M PRN IV Hypoglycemia 02/19/19 09:00 03/21/19 08:59 Dextrose (Dextrose 50%) 50 ml Q30M PRN IV Hypoglycemia 02/19/19 09:00 03/21/19 08:59 Insulin Aspart (NovoLOG) BEFORE MEALS AND HS SUBQ 02/19/19 11:30 03/21/19 11:29 02/20/19 06:54 Insulin Detemir (Levemir) 6 units BID SUBQ 02/19/19 09:00 03/21/19 08:59 02/20/19 09:21 Norepinephrine Bitartrate 4 mg/ Dextrose 250 ml @ 0 mls/hr Q24H IV 02/18/19 21:30 03/20/19 21:29 Pantoprazole (Protonix) 40 mg EVERY 12 HOURS IVP 02/20/19 10:30 03/22/19 10:29 Potassium Chloride 100 ml @ 50 mls/hr Q2H IVPB 02/20/19 11:00 02/20/19 14:59 Vancomycin HCl (Vanco rx to dose) 1 ea DAILY PRN MISC Per rx protocol 02/19/19 09:00 03/20/19 17:14 Vancomycin HCl 750 mg/Sodium Chloride 275 ml @ 183.333 mls/hr Q24H IVPB 02/19/19 18:00 02/24/19 17:59 02/19/19 17:38 CT Abdomen: Marked abnormal bladder, with wall thickening, and extensive stranding of the pericystic fat. Gas within the bladder lumen is presumably related to Agarwal catheter. However, gas bubbles at the periphery of the dome of the bladder are concerning for intramural gas consistent with emphysematous cystitis. Positive for tiny right distal ureteral calculus resulting in moderate right hydronephrosis and hydroureter Bilateral intrarenal calculi Extensive retrosacral/retrococcygeal decubitus changes. Correlate with clinical findings. 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 CXR: Nil acute Critical Care - Objective Last 24 Hour Vital Signs Date Time Temp Pulse Resp B/P (MAP) Pulse Ox O2 Delivery O2 Flow Rate FiO2 02/20/19 14:00 69 16 106/38 (60) 100 02/20/19 13:00 98.5 73 19 113/50 (71) 100 02/20/19 12:00 Nasal Cannula 2.0 02/20/19 12:00 77 19 96/41 (59) 100 02/20/19 11:26 86 02/20/19 11:00 77 20 94/45 (61) 100 02/20/19 10:52 78 18 100 Nasal Cannula 2.0 28 02/20/19 10:42 71 20 100 Nasal Cannula 2.0 28 02/20/19 10:00 77 27 133/47 (75) 100 02/20/19 09:00 98.7 86 20 111/59 (76) 100 02/20/19 08:00 86 02/20/19 08:00 Nasal Cannula 2.0 02/20/19 08:00 86 22 113/51 (71) 100 02/20/19 07:20 80 16 100 Nasal Cannula 2.0 28 02/20/19 07:19 88 18 100 Nasal Cannula 2.0 28 02/20/19 07:19 100 Nasal Cannula 2.0 28 02/20/19 07:12 88 14 100 Nasal Cannula 2.0 28 02/20/19 07:00 85 21 124/49 (74) 100 02/20/19 06:00 85 21 119/48 (71) 100 02/20/19 05:00 85 19 127/49 (75) 100 02/20/19 04:00 98.6 84 19 119/52 (74) 100 02/20/19 04:00 Nasal Cannula 2.0 02/20/19 04:00 87 02/20/19 03:14 81 18 100 Nasal Cannula 2.0 28 02/20/19 03:01 83 13 100 Nasal Cannula 2.0 28 02/20/19 03:00 78 19 122/38 (66) 100 02/20/19 02:00 92 19 127/41 (69) 100 02/20/19 01:00 90 19 164/49 (87) 100 02/20/19 00:00 98.0 91 19 154/62 (92) 100 02/20/19 00:00 92 02/20/19 00:00 Nasal Cannula 2.0 02/19/19 23:14 85 18 100 Nasal Cannula 2.0 28 02/19/19 23:07 86 21 100 Nasal Cannula 2.0 28 02/19/19 23:00 92 19 138/48 (78) 100 02/19/19 22:00 92 19 134/49 (77) 100 02/19/19 21:30 134/49 02/19/19 21:00 Nasal Cannula 2.0 02/19/19 21:00 92 19 134/49 (77) 100 02/19/19 20:30 92 19 119/49 (72) 100 02/19/19 20:00 98.8 91 6 84/28 (46) 100 02/19/19 20:00 89 02/19/19 19:18 91 18 98 Nasal Cannula 2.0 28 02/19/19 19:08 92 19 100 Nasal Cannula 2.0 28 02/19/19 19:08 100 Nasal Cannula 2.0 28 02/19/19 19:08 92 19 100 Nasal Cannula 2.0 28 02/19/19 19:00 91 15 93/43 (60) 100 02/19/19 19:00 92 16 93/43 (60) 100 02/19/19 18:00 91 15 102/27 (52) 100 02/19/19 17:00 98.2 100 19 120/83 (95) 100 02/19/19 16:00 100 02/19/19 16:00 99 16 120/81 (94) 100 02/19/19 16:00 2.0 02/19/19 16:00 Nasal Cannula 2.0 02/19/19 15:12 94 18 98 Nasal Cannula 2.0 28 02/19/19 15:03 94 20 100 Nasal Cannula 2.0 28 02/19/19 15:00 93 18 91/36 (54) 100 Micro: Microbiology Date/Time Source Procedure Growth Status 02/18/19 12:50 Blood Blood Culture - Preliminary NO GROWTH AFTER 24 HOURS Resulted 02/18/19 12:35 Blood Blood Culture - Preliminary NO GROWTH AFTER 24 HOURS Resulted 02/18/19 12:50 Urine,Clean Catch Urine Culture - Preliminary Morganella Morg Spp Morganii Resulted 02/18/19 20:45 Sacral Wound Gram Stain - Final Resulted 02/18/19 20:45 Wound Culture - Preliminary Gram Negative Bacillus 1 Resulted Accucheck: 295 Critical Care - Subjective ROS Limited/Unobtainable: No FI02: 28 Sputum Amount: None I&O: Intake and Output 02/19/19 02/20/19 19:00 07:00 Intake Total 1985.833 ml 1153.33 ml Output Total 760 ml 765 ml Balance 1225.833 ml 388.33 ml Intake Oral 0 ml 0 ml Free Water 0 ml 0 ml IV Total 1985.833 ml 1153.33 ml Output Urine Total 560 ml 765 ml Stool Total 200 ml # Bowel Movements 30 Minh Dunbar MD Feb 20, 2019 14:08
--- NOTE | 2019-02-20 14:10 | NUR ---
NURSE NOTES: Received pt from [facility]. Patient is asleep/lethargic. on 2LNC, Spo2 100%, RR 18. Breathing even and unlabored. No signs of distress. Sinus rhythm on cardiac cath lab manager. VSS. PRBC running @100cc/hr now, no signs of transfusion rxn noted. afebrile. 97.1. Right femoral TLC running PRBC, D5W@100cc/hr and 20meq KCL. Colostomy draining well, 20 cc watery brown stool. Dressing on sacral intact and clean. PEG clamped and NPO. abdomen round and non-distended. No signs of hypo or hyperglycemia. Agarwal catheter draining well to gravity; color is yellow with some sediments. Bed locked, alarmed and in lowest position.
--- NOTE | 2019-02-20 14:24 | Hematology/Onc Progress Note ---
Assessment/Plan Assessment/Plan Assessment and Recs: # Anemia of chronic disease due to underlying chronic medical issues, multifactorial, ferritin 366, tibc 144 --> Anemia workup has been reviewed, rule out gi bleed --> No evidence of hemolysis is noted, peripheral smear has been reviewed. --> Hgb goal >7. Transfuse prn. --> Epogen or iron at this time is not particularly indicated --> Medications have been reviewed --> low threshold for gi evaluation in case has occult + --> Hgb trend:>8.4-->8-->7.3 # Recanalized dvt of the right lower extremity --> given it has healed/recanalized, is not acute okay for just heparin prophylactic dosing --> continue heparin sq bid dosing once hgb >8 # Leukocytosis/elevated white blood cell count, is due to underlying sepsis urine infection+ --> Currently resolved --> ID is following, appreciate recs --> have reviewed peripheral smear and bandemia/neutrophilia noted --> continue antibiotics per ID cefepime/vanc --> monitor for resolution --> trend 17.4-->11.2-->8.3 -->12 # Respiratory failure with hypoxia --> Currently on NC 12/28 --> pulm eval --> prior intubation 12/2018 # Sacral decubitus ulcer, stage IV --> per surg, wound care # HCAP (healthcare-associated pneumonia) # ARF (acute renal failure) --> per renal # Hyperglycemia due to type 2 diabetes mellitus --> per endo # Acute metabolic encephalopathy # Severe dehydration # DVT pxx with scds now The timing of this note does not necessarily reflect the time of the patient was seen. Subjective Constitutional: Denies: no symptoms, chills, fever, malaise, weakness, other HEENT: Denies: no symptoms, eye pain, blurred vision, tearing, double vision, ear pain, ear discharge, nose pain, nose congestion, throat pain, throat swelling, mouth pain, mouth swelling, other Cardiovascular: Denies: no symptoms, chest pain, edema, irregular heart rate, lightheadedness, palpitations, syncope, other Respiratory: Denies: no symptoms, cough, shortness of breath, SOB with excertion, SOB at rest, sputum, wheezing, other Gastrointestinal/Abdominal: Denies: no symptoms, abdomen distended, abdominal pain, black stools, tarry stools, blood in stool, constipated, diarrhea, difficulty swallowing, nausea, poor appetite, poor fluid intake, rectal bleeding , vomiting, other Genitourinary: Denies: no symptoms, burning, discharge, frequency, flank pain, hematuria, incontinence, pain, urgency, other Neurologic/Psychiatric: Denies: no symptoms, anxiety, depressed, emotional problems, headache, numbness, paresthesia, pre-existing deficit, seizure, tingling, tremors, weakness, other Endocrine: Denies: no symptoms, excessive sweating, flushing, intolerance to cold, intolerance to heat, increased hunger, increased thirst, increased urine, unexplained weight gain, unexplained weight loss, other Allergies: Coded Allergies: ALLOPURINOL (Verified Allergy, Unknown, 12/20/18) Subjective 02/19: remains in icu, labs reviewed, bs is better today, on abx 02/20: on cefepime and have discontinued vanc, no bleeding noted, hgb reviewed Objective Objective Current Medications Medications (Trade) Dose Ordered Sig/Nora Route PRN Reason Start Time Stop Time Status Last Admin Dose Admin Albuterol/ Ipratropium (Albuterol/ Ipratropium) 3 ml Q4HRT HHN 02/18/19 23:00 02/23/19 22:59 02/20/19 10:51 Aspirin (Ecotrin) 81 mg DAILY ORAL 02/19/19 12:30 03/21/19 12:29 02/20/19 09:20 Atorvastatin Calcium (Lipitor) 40 mg BEDTIME ORAL 02/19/19 21:00 03/21/19 20:59 02/19/19 20:22 Cefepime HCl 1 gm/ Dextrose 55 ml @ 110 mls/hr Q24H IVPB 02/19/19 20:00 02/25/19 19:59 02/19/19 20:21 Chlorhexidine Gluconate (Valentina-Hex 2%) 1 applic DAILY@2000 TOPIC 02/19/19 20:00 03/21/19 19:59 02/19/19 20:21 Dextrose 1,000 ml @ 100 mls/hr Q10H IV 02/19/19 07:09 03/21/19 07:08 02/20/19 12:29 Dextrose (Dextrose 50%) 25 ml Q30M PRN IV Hypoglycemia 02/19/19 09:00 03/21/19 08:59 Dextrose (Dextrose 50%) 50 ml Q30M PRN IV Hypoglycemia 02/19/19 09:00 03/21/19 08:59 Insulin Aspart (NovoLOG) BEFORE MEALS AND HS SUBQ 02/19/19 11:30 03/21/19 11:29 02/20/19 12:29 Insulin Detemir (Levemir) 6 units BID SUBQ 02/19/19 09:00 03/21/19 08:59 02/20/19 09:21 Norepinephrine Bitartrate 4 mg/ Dextrose 250 ml @ 0 mls/hr Q24H IV 02/18/19 21:30 03/20/19 21:29 Pantoprazole (Protonix) 40 mg EVERY 12 HOURS IVP 02/20/19 10:30 03/22/19 10:29 02/20/19 12:27 Potassium Chloride 100 ml @ 50 mls/hr Q2H IVPB 02/20/19 11:00 02/20/19 14:59 02/20/19 12:27 Last 24 Hour Vital Signs Date Time Temp Pulse Resp B/P (MAP) Pulse Ox O2 Delivery O2 Flow Rate FiO2 02/20/19 14:00 69 16 106/38 (60) 100 02/20/19 13:00 97.8 73 19 113/50 (71) 100 02/20/19 12:00 Nasal Cannula 2.0 02/20/19 12:00 77 19 96/41 (59) 100 02/20/19 11:26 86 02/20/19 11:00 77 20 94/45 (61) 100 02/20/19 10:52 78 18 100 Nasal Cannula 2.0 28 02/20/19 10:42 71 20 100 Nasal Cannula 2.0 28 02/20/19 10:00 77 27 133/47 (75) 100 02/20/19 09:00 98.7 86 20 111/59 (76) 100 02/20/19 08:00 86 02/20/19 08:00 Nasal Cannula 2.0 02/20/19 08:00 86 22 113/51 (71) 100 02/20/19 07:20 80 16 100 Nasal Cannula 2.0 28 02/20/19 07:19 88 18 100 Nasal Cannula 2.0 28 02/20/19 07:19 100 Nasal Cannula 2.0 28 02/20/19 07:12 88 14 100 Nasal Cannula 2.0 28 02/20/19 07:00 85 21 124/49 (74) 100 02/20/19 06:00 85 21 119/48 (71) 100 02/20/19 05:00 85 19 127/49 (75) 100 02/20/19 04:00 98.6 84 19 119/52 (74) 100 02/20/19 04:00 Nasal Cannula 2.0 02/20/19 04:00 87 02/20/19 03:14 81 18 100 Nasal Cannula 2.0 28 02/20/19 03:01 83 13 100 Nasal Cannula 2.0 28 02/20/19 03:00 78 19 122/38 (66) 100 02/20/19 02:00 92 19 127/41 (69) 100 02/20/19 01:00 90 19 164/49 (87) 100 02/20/19 00:00 98.0 91 19 154/62 (92) 100 02/20/19 00:00 92 02/20/19 00:00 Nasal Cannula 2.0 02/19/19 23:14 85 18 100 Nasal Cannula 2.0 28 02/19/19 23:07 86 21 100 Nasal Cannula 2.0 28 02/19/19 23:00 92 19 138/48 (78) 100 02/19/19 22:00 92 19 134/49 (77) 100 02/19/19 21:30 134/49 02/19/19 21:00 Nasal Cannula 2.0 02/19/19 21:00 92 19 134/49 (77) 100 02/19/19 20:30 92 19 119/49 (72) 100 02/19/19 20:00 98.8 91 6 84/28 (46) 100 02/19/19 20:00 89 02/19/19 19:18 91 18 98 Nasal Cannula 2.0 28 02/19/19 19:08 92 19 100 Nasal Cannula 2.0 28 02/19/19 19:08 100 Nasal Cannula 2.0 28 02/19/19 19:08 92 19 100 Nasal Cannula 2.0 28 02/19/19 19:00 91 15 93/43 (60) 100 02/19/19 19:00 92 16 93/43 (60) 100 02/19/19 18:00 91 15 102/27 (52) 100 02/19/19 17:00 98.2 100 19 120/83 (95) 100 02/19/19 16:00 100 02/19/19 16:00 99 16 120/81 (94) 100 02/19/19 16:00 2.0 02/19/19 16:00 Nasal Cannula 2.0 02/19/19 15:12 94 18 98 Nasal Cannula 2.0 28 02/19/19 15:03 94 20 100 Nasal Cannula 2.0 28 02/19/19 15:00 93 18 91/36 (54) 100 02/19/19 14:00 98 13 85/47 (60) 100 02/19/19 13:00 98.0 102 19 107/47 (67) 100 02/19/19 12:00 104 17 95/34 (54) 100 02/19/19 12:00 Nasal Cannula 2.0 02/19/19 12:00 106 02/19/19 12:00 2.0 02/19/19 11:15 103 18 100 Nasal Cannula 2.0 28 02/19/19 11:00 104 17 103/43 (63) 100 02/19/19 10:57 105 20 100 Nasal Cannula 2.0 28 02/19/19 10:00 106 20 118/45 (69) 100 02/19/19 09:12 99 02/19/19 09:00 100 17 100/50 (67) 100 02/19/19 08:00 98.5 105 24 96/39 (58) 98 02/19/19 08:00 Nasal Cannula 2.0 02/19/19 08:00 2.0 02/19/19 07:31 101 20 100 Nasal Cannula 2.0 28 02/19/19 07:28 102 20 100 Nasal Cannula 2.0 28 02/19/19 07:27 100 Nasal Cannula 2.0 28 02/19/19 07:25 101 20 100 Nasal Cannula 2.0 28 02/19/19 07:00 103 17 98/42 (60) 98 02/19/19 06:30 101 17 110/46 (67) 100 02/19/19 06:00 97 19 83/46 (58) 100 02/19/19 05:00 99 19 125/43 (70) 99 02/19/19 04:30 102 18 110/51 (70) 99 02/19/19 04:00 Nasal Cannula 2.0 02/19/19 04:00 2.0 02/19/19 04:00 97.7 98 17 87/46 (60) 100 02/19/19 03:48 102 02/19/19 03:19 28 02/19/19 03:19 103 18 100 Nasal Cannula 2.0 28 02/19/19 03:04 97 18 98 Nasal Cannula 2.0 28 02/19/19 03:00 87 19 113/93 (100) 98 02/19/19 02:00 87 20 103/36 (58) 100 02/19/19 01:00 98 20 93/45 (61) 100 02/19/19 00:03 102 18 100 Nasal Cannula 2.0 28 02/19/19 00:00 Nasal Cannula 2.0 02/19/19 00:00 2.0 02/19/19 00:00 97.5 92 20 110/54 (72) 100 02/18/19 23:51 85 02/18/19 23:51 101 24 100 Nasal Cannula 2.0 28 02/18/19 23:51 28 02/18/19 23:00 87 20 88/60 (69) 98 02/18/19 22:15 94 24 109/69 (82) 99 02/18/19 22:00 94 22 113/62 (79) 98 02/18/19 21:45 94 21 102/53 (69) 96 02/18/19 21:30 94 19 105/49 (67) 99 02/18/19 21:30 105/49 02/18/19 21:15 94 19 99/40 (59) 99 02/18/19 21:00 94 20 95/52 (66) 97 02/18/19 20:45 94 17 99/64 (76) 98 02/18/19 20:35 96 02/18/19 20:30 97.6 192/95 (127) 02/18/19 20:25 Nasal Cannula 2.0 02/18/19 20:08 98.1 87 18 98/82 100 Nasal Cannula 2.0 02/18/19 18:37 98.1 87 17 107/52 100 Room Air 02/18/19 17:30 98.4 85 20 102/40 100 Room Air 02/18/19 16:30 98.1 91 24 119/49 100 Room Air 02/18/19 15:33 98.3 98 28 92/61 98 Room Air Intake and Output 02/19/19 02/20/19 19:00 07:00 Intake Total 1985.833 ml 1153.33 ml Output Total 760 ml 765 ml Balance 1225.833 ml 388.33 ml Intake Oral 0 ml 0 ml Free Water 0 ml 0 ml IV Total 1985.833 ml 1153.33 ml Output Urine Total 560 ml 765 ml Stool Total 200 ml # Bowel Movements 30 Labs Test 02/18/19 12:50 02/18/19 14:18 02/19/19 03:55 02/19/19 08:15 White Blood Count 12.1 K/UL (4.8-10.8) 12.0 K/UL (4.8-10.8) 12.3 K/UL (4.8-10.8) Red Blood Count 3.84 M/UL (4.20-5.40) 2.90 M/UL (4.20-5.40) 3.03 M/UL (4.20-5.40) Hemoglobin 10.3 G/DL (12.0-16.0) 7.6 G/DL (12.0-16.0) 8.0 G/DL (12.0-16.0) Hematocrit 36.4 % (37.0-47.0) 26.4 % (37.0-47.0) 27.4 % (37.0-47.0) Mean Corpuscular Volume 95 FL (80-99) 91 FL (80-99) 91 FL (80-99) Mean Corpuscular Hemoglobin 26.7 PG (27.0-31.0) 26.3 PG (27.0-31.0) 26.5 PG (27.0-31.0) Mean Corpuscular Hemoglobin Concent 28.2 G/DL (32.0-36.0) 28.9 G/DL (32.0-36.0) 29.3 G/DL (32.0-36.0) Red Cell Distribution Width 18.2 % (11.6-14.8) 17.7 % (11.6-14.8) 17.5 % (11.6-14.8) Platelet Count 339 K/UL (150-450) 238 K/UL (150-450) 230 K/UL (150-450) Mean Platelet Volume 7.5 FL (6.5-10.1) 8.3 FL (6.5-10.1) 8.5 FL (6.5-10.1) Neutrophils (%) (Auto) 73.1 % (45.0-75.0) % (45.0-75.0) 63.0 % (45.0-75.0) Lymphocytes (%) (Auto) 23.0 % (20.0-45.0) % (20.0-45.0) 31.1 % (20.0-45.0) Monocytes (%) (Auto) 3.1 % (1.0-10.0) % (1.0-10.0) 4.4 % (1.0-10.0) Eosinophils (%) (Auto) 0.5 % (0.0-3.0) % (0.0-3.0) 0.7 % (0.0-3.0) Basophils (%) (Auto) 0.4 % (0.0-2.0) % (0.0-2.0) 0.7 % (0.0-2.0) Prothrombin Time 10.8 SEC (9.30-11.50) Prothromb Time International Ratio 1.0 (0.9-1.1) Activated Partial Thromboplast Time 19 SEC (23-33) Urine Color Pale yellow Urine Appearance Cloudy Urine pH 8 (4.5-8.0) Urine Specific Odum 1.010 (1.005-1.035) Urine Protein 3+ (NEGATIVE) Urine Glucose (UA) 4+ (NEGATIVE) Urine Ketones Negative (NEGATIVE) Urine Blood 3+ (NEGATIVE) Urine Nitrite Negative (NEGATIVE) Urine Bilirubin Negative (NEGATIVE) Urine Urobilinogen Normal MG/DL (0.0-1.0) Urine Leukocyte Esterase 3+ (NEGATIVE) Urine RBC 10-15 /HPF (0 - 2) Urine WBC Tntc /HPF (0 - 2) Urine Squamous Epithelial Cells Few /LPF (NONE/OCC) Urine Bacteria Few /HPF (NONE) Sodium Level 163 MMOL/L (136-145) 169 MMOL/L (136-145) Potassium Level 6.1 MMOL/L (3.5-5.1) 3.0 MMOL/L (3.5-5.1) Chloride Level 125 MMOL/L (98-107) 131 MMOL/L (98-107) Carbon Dioxide Level 35 MMOL/L (21-32) 31 MMOL/L (21-32) Anion Gap 4 mmol/L (5-15) 5 mmol/L (5-15) Blood Urea Nitrogen 119 mg/dL (7-18) 100 mg/dL (7-18) Creatinine 2.2 MG/DL (0.55-1.30) 1.4 MG/DL (0.55-1.30) Estimat Glomerular Filtration Rate mL/min (>60) mL/min (>60) Glucose Level 918 MG/DL (74-106) 130 MG/DL (74-106) Calcium Level 10.5 MG/DL (8.5-10.1) 8.9 MG/DL (8.5-10.1) Total Bilirubin 0.3 MG/DL (0.2-1.0) 0.2 MG/DL (0.2-1.0) Aspartate Amino Transf (AST/SGOT) 18 U/L (15-37) 17 U/L (15-37) Alanine Aminotransferase (ALT/SGPT) 12 U/L (12-78) 10 U/L (12-78) Alkaline Phosphatase 181 U/L (46-116) 91 U/L (46-116) Total Creatine Kinase 210 U/L (26-308) 164 U/L (26-308) Creatine Kinase MB 1.3 NG/ML (0.0-3.6) Creatine Kinase MB Relative Index 0.6 Troponin I 0.000 ng/mL (0.000-0.056) 0.000 ng/mL (0.000-0.056) Pro-B-Type Natriuretic Peptide 670 pg/mL (0-125) 612 pg/mL (0-125) Total Protein 10.1 G/DL (6.4-8.2) 7.9 G/DL (6.4-8.2) Albumin 2.0 G/DL (3.4-5.0) 1.5 G/DL (3.4-5.0) Globulin 8.1 g/dL 6.4 g/dL Albumin/Globulin Ratio 0.2 (1.0-2.7) 0.2 (1.0-2.7) Lipase 522 U/L (73-393) 217 U/L (73-393) Arterial Blood pH 7.369 (7.350-7.450) Arterial Blood Partial Pressure CO2 56.1 mmHg (35.0-45.0) Arterial Blood Partial Pressure O2 66.8 mmHg (75.0-100.0) Arterial Blood HCO3 31.6 mmol/L (22.0-26.0) Arterial Blood Oxygen Saturation 91.5 % (95-100) Arterial Blood Base Excess 5.3 (-2-2) Brock Test Positive Differential Total Cells Counted 100 Neutrophils % (Manual) 70 % (45-75) Lymphocytes % (Manual) 25 % (20-45) Monocytes % (Manual) 2 % (1-10) Eosinophils % (Manual) 3 % (0-3) Basophils % (Manual) 0 % (0-2) Band Neutrophils 0 % (0-8) Platelet Estimate Adequate Platelet Morphology Normal Hypochromasia 1+ Anisocytosis 1+ Hemoglobin A1c 10.1 % (4.3-6.0) Uric Acid 6.0 MG/DL (2.6-7.2) Phosphorus Level 2.6 MG/DL (2.5-4.9) Magnesium Level 2.0 MG/DL (1.8-2.4) Iron Level 14 ug/dL (50-175) Total Iron Binding Capacity 132 ug/dL (250-450) Percent Iron Saturation 11 % (15-50) Unsaturated Iron Binding 118 ug/dL (112-346) Ferritin 619 NG/ML (8-388) Gamma Glutamyl Transpeptidase 47 U/L (5-85) Ammonia 19 umol/L (11-32) C-Reactive Protein, Quantitative 33.7 mg/dL (0.00-0.90) Triglycerides Level 85 MG/DL (30-150) Cholesterol Level 114 MG/DL (< 200) LDL Cholesterol 61 mg/dL (<100) HDL Cholesterol 47 MG/DL (40-60) Cholesterol/HDL Ratio 2.4 (3.3-4.4) Vitamin B12 Level 1526 PG/ML (193-986) Folate 81.1 NG/ML (8.6-58.9) Thyroid Stimulating Hormone (TSH) 0.697 uiU/mL (0.358-3.740) Random Vancomycin Level 16.9 ug/mL Acetone Level Negative (NEGATIVE) Test 02/20/19 03:35 02/20/19 07:15 Sodium Level 165 MMOL/L (136-145) Potassium Level 3.4 MMOL/L (3.5-5.1) Chloride Level 130 MMOL/L (98-107) Carbon Dioxide Level 27 MMOL/L (21-32) Anion Gap 8 mmol/L (5-15) Blood Urea Nitrogen 69 mg/dL (7-18) Creatinine 1.2 MG/DL (0.55-1.30) Estimat Glomerular Filtration Rate mL/min (>60) Glucose Level 238 MG/DL (74-106) Uric Acid 5.6 MG/DL (2.6-7.2) Calcium Level 8.0 MG/DL (8.5-10.1) Phosphorus Level 2.6 MG/DL (2.5-4.9) Magnesium Level 1.9 MG/DL (1.8-2.4) Total Bilirubin 0.3 MG/DL (0.2-1.0) Aspartate Amino Transf (AST/SGOT) 16 U/L (15-37) Alanine Aminotransferase (ALT/SGPT) 9 U/L (12-78) Alkaline Phosphatase 73 U/L (46-116) C-Reactive Protein, Quantitative 69.4 mg/dL (0.00-0.90) Pro-B-Type Natriuretic Peptide 3788 pg/mL (0-125) Total Protein 6.7 G/DL (6.4-8.2) Albumin 1.8 G/DL (3.4-5.0) Globulin 4.9 g/dL Albumin/Globulin Ratio 0.4 (1.0-2.7) White Blood Count 10.6 K/UL (4.8-10.8) Red Blood Count 2.75 M/UL (4.20-5.40) Hemoglobin 7.3 G/DL (12.0-16.0) Hematocrit 25.1 % (37.0-47.0) Mean Corpuscular Volume 91 FL (80-99) Mean Corpuscular Hemoglobin 26.5 PG (27.0-31.0) Mean Corpuscular Hemoglobin Concent 29.0 G/DL (32.0-36.0) Red Cell Distribution Width 17.7 % (11.6-14.8) Platelet Count 189 K/UL (150-450) Mean Platelet Volume 8.7 FL (6.5-10.1) Neutrophils (%) (Auto) % (45.0-75.0) Lymphocytes (%) (Auto) % (20.0-45.0) Monocytes (%) (Auto) % (1.0-10.0) Eosinophils (%) (Auto) % (0.0-3.0) Basophils (%) (Auto) % (0.0-2.0) Differential Total Cells Counted 100 Neutrophils % (Manual) 65 % (45-75) Lymphocytes % (Manual) 26 % (20-45) Monocytes % (Manual) 2 % (1-10) Eosinophils % (Manual) 2 % (0-3) Basophils % (Manual) 0 % (0-2) Band Neutrophils 5 % (0-8) Platelet Estimate Adequate Platelet Morphology Normal Hypochromasia 1+ Anisocytosis 1+ Height (Feet): 5 Height (Inches): 7.00 Weight (Pounds): 147 Objective General Appearance: severe distress, lethargic, Chronically Ill Head: normocephalic, atraumatic Eyes: bilateral eye PERRL, bilateral eye EOMI ENT: dry mucus membranes Neck: full range of motion, supple, no meningismus Respiratory: chest non-tender, respiratory distress, rhonchi. CPAP+ Cardiovascular: regular rate, rhythm, no murmur, tachycardia Gastrointestinal: normal bowel sounds, non tender- Reducible abdominal wall hernia. COLOSTOMY+, GT++ Rectal: other - large sacral Stage 4 ulcer Tobin Stover MD Feb 20, 2019 14:24
--- NOTE | 2019-02-20 14:35 | NUR ---
NURSE NOTES: Blood transfusion complete. VSS. BP 125/52, HR 75, T 97.3, Spo2 100%, RR 18. No signs of blood transfusion rxn.
--- NOTE | 2019-02-20 15:23 | NUR ---
NURSE NOTES: Received transfer orders to [facility] per Dr. Dunbar.
--- NOTE | 2019-02-20 15:50 | Surgery Progress Note ---
Surgery Progress Note Subjective Additional Comments leukocytosis resolved labs noted exam stable. Objective Last 24 Hour Vital Signs Date Time Temp Pulse Resp B/P (MAP) Pulse Ox O2 Delivery O2 Flow Rate FiO2 02/20/19 15:34 66 16 100 Nasal Cannula 2.0 28 02/20/19 15:24 63 20 100 Nasal Cannula 2.0 28 02/20/19 14:00 69 16 106/38 (60) 100 02/20/19 13:00 97.8 73 19 113/50 (71) 100 02/20/19 12:00 Nasal Cannula 2.0 02/20/19 12:00 77 19 96/41 (59) 100 02/20/19 11:26 86 02/20/19 11:00 77 20 94/45 (61) 100 02/20/19 10:52 78 18 100 Nasal Cannula 2.0 28 02/20/19 10:42 71 20 100 Nasal Cannula 2.0 28 02/20/19 10:00 77 27 133/47 (75) 100 02/20/19 09:00 98.7 86 20 111/59 (76) 100 02/20/19 08:00 86 02/20/19 08:00 Nasal Cannula 2.0 02/20/19 08:00 86 22 113/51 (71) 100 02/20/19 07:20 80 16 100 Nasal Cannula 2.0 28 02/20/19 07:19 88 18 100 Nasal Cannula 2.0 28 02/20/19 07:19 100 Nasal Cannula 2.0 28 02/20/19 07:12 88 14 100 Nasal Cannula 2.0 28 02/20/19 07:00 85 21 124/49 (74) 100 02/20/19 06:00 85 21 119/48 (71) 100 02/20/19 05:00 85 19 127/49 (75) 100 02/20/19 04:00 98.6 84 19 119/52 (74) 100 02/20/19 04:00 Nasal Cannula 2.0 02/20/19 04:00 87 02/20/19 03:14 81 18 100 Nasal Cannula 2.0 28 02/20/19 03:01 83 13 100 Nasal Cannula 2.0 28 02/20/19 03:00 78 19 122/38 (66) 100 02/20/19 02:00 92 19 127/41 (69) 100 02/20/19 01:00 90 19 164/49 (87) 100 02/20/19 00:00 98.0 91 19 154/62 (92) 100 02/20/19 00:00 92 02/20/19 00:00 Nasal Cannula 2.0 02/19/19 23:14 85 18 100 Nasal Cannula 2.0 28 02/19/19 23:07 86 21 100 Nasal Cannula 2.0 28 02/19/19 23:00 92 19 138/48 (78) 100 02/19/19 22:00 92 19 134/49 (77) 100 02/19/19 21:30 134/49 02/19/19 21:00 Nasal Cannula 2.0 02/19/19 21:00 92 19 134/49 (77) 100 02/19/19 20:30 92 19 119/49 (72) 100 02/19/19 20:00 98.8 91 6 84/28 (46) 100 02/19/19 20:00 89 02/19/19 19:18 91 18 98 Nasal Cannula 2.0 28 02/19/19 19:08 92 19 100 Nasal Cannula 2.0 28 02/19/19 19:08 100 Nasal Cannula 2.0 28 02/19/19 19:08 92 19 100 Nasal Cannula 2.0 28 02/19/19 19:00 91 15 93/43 (60) 100 02/19/19 19:00 92 16 93/43 (60) 100 02/19/19 18:00 91 15 102/27 (52) 100 02/19/19 17:00 98.2 100 19 120/83 (95) 100 02/19/19 16:00 100 02/19/19 16:00 99 16 120/81 (94) 100 02/19/19 16:00 2.0 02/19/19 16:00 Nasal Cannula 2.0 I&O Intake and Output 02/19/19 02/20/19 19:00 07:00 Intake Total 1985.833 ml 1153.33 ml Output Total 760 ml 765 ml Balance 1225.833 ml 388.33 ml Intake Oral 0 ml 0 ml Free Water 0 ml 0 ml IV Total 1985.833 ml 1153.33 ml Output Urine Total 560 ml 765 ml Stool Total 200 ml # Bowel Movements 30 Dressing: saturated Wound: other Drains: other Cardiovascular: RSR Respiratory: decreased breath sounds Abdomen: soft, present bowel sounds, other Extremities: other Laboratory Tests Test 02/20/19 03:35 02/20/19 07:15 Sodium Level 165 MMOL/L (136-145) *H Potassium Level 3.4 MMOL/L (3.5-5.1) L Chloride Level 130 MMOL/L (98-107) H Carbon Dioxide Level 27 MMOL/L (21-32) Anion Gap 8 mmol/L (5-15) Blood Urea Nitrogen 69 mg/dL (7-18) H Creatinine 1.2 MG/DL (0.55-1.30) Estimat Glomerular Filtration Rate mL/min (>60) Glucose Level 238 MG/DL (74-106) #H Uric Acid 5.6 MG/DL (2.6-7.2) Calcium Level 8.0 MG/DL (8.5-10.1) L Phosphorus Level 2.6 MG/DL (2.5-4.9) Magnesium Level 1.9 MG/DL (1.8-2.4) Total Bilirubin 0.3 MG/DL (0.2-1.0) Aspartate Amino Transf (AST/SGOT) 16 U/L (15-37) Alanine Aminotransferase (ALT/SGPT) 9 U/L (12-78) L Alkaline Phosphatase 73 U/L (46-116) C-Reactive Protein, Quantitative 69.4 mg/dL (0.00-0.90) H Pro-B-Type Natriuretic Peptide 3788 pg/mL (0-125) H Total Protein 6.7 G/DL (6.4-8.2) Albumin 1.8 G/DL (3.4-5.0) L Globulin 4.9 g/dL Albumin/Globulin Ratio 0.4 (1.0-2.7) L White Blood Count 10.6 K/UL (4.8-10.8) Red Blood Count 2.75 M/UL (4.20-5.40) L Hemoglobin 7.3 G/DL (12.0-16.0) L Hematocrit 25.1 % (37.0-47.0) L Mean Corpuscular Volume 91 FL (80-99) Mean Corpuscular Hemoglobin 26.5 PG (27.0-31.0) L Mean Corpuscular Hemoglobin Concent 29.0 G/DL (32.0-36.0) L Red Cell Distribution Width 17.7 % (11.6-14.8) H Platelet Count 189 K/UL (150-450) Mean Platelet Volume 8.7 FL (6.5-10.1) Neutrophils (%) (Auto) % (45.0-75.0) Lymphocytes (%) (Auto) % (20.0-45.0) Monocytes (%) (Auto) % (1.0-10.0) Eosinophils (%) (Auto) % (0.0-3.0) Basophils (%) (Auto) % (0.0-2.0) Differential Total Cells Counted 100 Neutrophils % (Manual) 65 % (45-75) Lymphocytes % (Manual) 26 % (20-45) Monocytes % (Manual) 2 % (1-10) Eosinophils % (Manual) 2 % (0-3) Basophils % (Manual) 0 % (0-2) Band Neutrophils 5 % (0-8) Platelet Estimate Adequate Platelet Morphology Normal Hypochromasia 1+ Anisocytosis 1+ Plan Problems: (1) Decubitus ulcer of sacral region, stage 4 Assessment & Plan: Pt presented on admission with full thickness stage 4 Sacral Pressure Injury with undermining. Bone is palpable. Base of has beefy red granulation with scattered small purple areas. No odor noted .Scant serous exudate noted . Edges pink and flat with some sloth. DTPI noted to lateral R foot. .Base of wound purple and fluctuant in center with surrounding maroon discoloration Non-blanchable erythema with fluctuance noted to posterior and medial R heel. L heel boggy but blanchable. Tx.Plan: Cleanse Sacral wound with Saline. Loosely pack with Hydrogel Impregnated Kerlix. Cover with ABD pads and secure with Paper Tape or Tegaderm Daily and prn. Apply Cavilon Skin Barrier to R and Heel and lateral R heel. Ciover with Optifoam drsg. Change every 7 days and PRN. Apply Cavilon Skin Barrier to L heel. Cover with Optifoam drsg. Change every 7 days and prn. APM/VIJI Mattress Overlay. Reposition at least every 2hours or as tolerated. Off-load heels with Pillow. (2) Sepsis Assessment & Plan: tachycardia, leukocytosis, anemia, abnormal labs, altered status wound evaluate and tho not as optimal as prior unlikely etiology of infection IV abx as per ID care orders as below trend labs will follow with recs thank you Mauro Morrow Feb 20, 2019 15:50
[2019-02-20] MEDS ORDERED: NS 275ml ONE (16:54)
[2019-02-20] MEDS ORDERED: Tubing IV Secondary IV ONE (16:54)
--- NOTE | 2019-02-20 17:56 | NUR ---
NURSE NOTES: Turned and repositioned. Kept dry and clean. Refused oral care.
--- NOTE | 2019-02-20 19:03 | NUR ---
TRANSFER TO FLOOR: Patient transferred to [facility], per Dr. Dunbar. Report given to Anna Newton RN. Belongings and medications given to receiving RN. Son, Wallace notified of transfer. Patient has no belongings. patient in stable condition.
--- NOTE | 2019-02-20 19:05 | NUR ---
NURSE NOTES: Received patient from Verena Valdez RN. Will continue plan of care.
[2019-02-20] MEDS: Dyna-Hex 2% Top Sol 2oz TOPIC SCH (19:56)
[2019-02-20] MEDS ORDERED: Cefepime HCl 1 GM in D5W 55 ML IVPB SCH (20:00)
[2019-02-20] MEDS: Pantoprazole Inj IVP SCH (20:18)
[2019-02-20] MEDS: Atorvastatin 20mg tab ORAL SCH (20:19)
--- NOTE | 2019-02-20 20:49 | General Progress Note ---
Assessment/Plan Problem List: (1) Renal failure (ARF), acute on chronic ICD Codes: N17.9 - Acute kidney failure, unspecified; N18.9 - Chronic kidney disease, unspecified SNOMED: 190805396 (2) Altered level of consciousness ICD Codes: R40.4 - Transient alteration of awareness SNOMED: 4933787 (3) Hypotension ICD Codes: I95.9 - Hypotension, unspecified SNOMED: 87591702 (4) Anemia ICD Codes: D64.9 - Anemia, unspecified SNOMED: 700868432 (5) Sepsis ICD Codes: A41.9 - Sepsis, unspecified organism SNOMED: 80502643 (6) Electrolyte imbalance ICD Codes: E87.8 - Other disorders of electrolyte and fluid balance, not elsewhere classified SNOMED: 186195198 Status: progressing, unchanged Assessment/Plan: hyperosmolar hyperglycemia off insulin drip afebrile lyte abnormality reviewed chart and labs Subjective ROS Limited/Unobtainable: Yes Allergies: Coded Allergies: ALLOPURINOL (Verified Allergy, Unknown, 12/20/18) Objective Last 24 Hour Vital Signs Date Time Temp Pulse Resp B/P (MAP) Pulse Ox O2 Delivery O2 Flow Rate FiO2 02/20/19 19:42 Nasal Cannula 02/20/19 19:40 54 18 97 Nasal Cannula 2.0 28 02/20/19 19:39 97 Nasal Cannula 2.0 28 02/20/19 19:00 75 20 109/41 (63) 100 02/20/19 18:00 76 20 108/39 (62) 100 02/20/19 17:00 74 20 110/39 (62) 100 02/20/19 16:00 Nasal Cannula 2.0 02/20/19 16:00 76 02/20/19 16:00 97.5 85 16 108/43 (64) 100 02/20/19 15:34 66 16 100 Nasal Cannula 2.0 28 02/20/19 15:24 63 20 100 Nasal Cannula 2.0 28 02/20/19 14:00 69 16 106/38 (60) 100 02/20/19 13:00 97.8 73 19 113/50 (71) 100 02/20/19 12:00 Nasal Cannula 2.0 02/20/19 12:00 77 19 96/41 (59) 100 02/20/19 11:26 86 02/20/19 11:00 77 20 94/45 (61) 100 02/20/19 10:52 78 18 100 Nasal Cannula 2.0 28 02/20/19 10:42 71 20 100 Nasal Cannula 2.0 28 02/20/19 10:00 77 27 133/47 (75) 100 02/20/19 09:00 98.7 86 20 111/59 (76) 100 02/20/19 08:00 86 02/20/19 08:00 Nasal Cannula 2.0 02/20/19 08:00 86 22 113/51 (71) 100 02/20/19 07:20 80 16 100 Nasal Cannula 2.0 28 02/20/19 07:19 88 18 100 Nasal Cannula 2.0 28 02/20/19 07:19 100 Nasal Cannula 2.0 28 02/20/19 07:12 88 14 100 Nasal Cannula 2.0 28 02/20/19 07:00 85 21 124/49 (74) 100 02/20/19 06:00 85 21 119/48 (71) 100 02/20/19 05:00 85 19 127/49 (75) 100 02/20/19 04:00 98.6 84 19 119/52 (74) 100 02/20/19 04:00 Nasal Cannula 2.0 02/20/19 04:00 87 02/20/19 03:14 81 18 100 Nasal Cannula 2.0 28 02/20/19 03:01 83 13 100 Nasal Cannula 2.0 28 02/20/19 03:00 78 19 122/38 (66) 100 02/20/19 02:00 92 19 127/41 (69) 100 02/20/19 01:00 90 19 164/49 (87) 100 02/20/19 00:00 98.0 91 19 154/62 (92) 100 02/20/19 00:00 92 02/20/19 00:00 Nasal Cannula 2.0 02/19/19 23:14 85 18 100 Nasal Cannula 2.0 28 02/19/19 23:07 86 21 100 Nasal Cannula 2.0 28 02/19/19 23:00 92 19 138/48 (78) 100 02/19/19 22:00 92 19 134/49 (77) 100 02/19/19 21:30 134/49 02/19/19 21:00 Nasal Cannula 2.0 8/19/19 21:00 92 19 134/49 (77) 100 Intake and Output 02/19/19 02/20/19 19:00 07:00 Intake Total 1985.833 ml 1153.33 ml Output Total 760 ml 765 ml Balance 1225.833 ml 388.33 ml Intake Oral 0 ml 0 ml Free Water 0 ml 0 ml IV Total 1985.833 ml 1153.33 ml Output Urine Total 560 ml 765 ml Stool Total 200 ml # Bowel Movements 30 Laboratory Tests 02/20/19 03:35: Sodium Level 165*H, Potassium Level 3.4L, Chloride Level 130H, Carbon Dioxide Level 27, Anion Gap 8, Blood Urea Nitrogen 69H, Creatinine 1.2, Estimat Glomerular Filtration Rate , Glucose Level 238#H, Uric Acid 5.6, Calcium Level 8.0L, Phosphorus Level 2.6, Magnesium Level 1.9, Total Bilirubin 0.3, Aspartate Amino Transf (AST/SGOT) 16, Alanine Aminotransferase (ALT/SGPT) 9L, Alkaline Phosphatase 73, C-Reactive Protein, Quantitative 69.4H, Pro-B-Type Natriuretic Peptide 3788H, Total Protein 6.7, Albumin 1.8L, Globulin 4.9, Albumin/Globulin Ratio 0.4L 02/20/19 07:15: White Blood Count 10.6, Red Blood Count 2.75L, Hemoglobin 7.3L, Hematocrit 25.1L , Mean Corpuscular Volume 91, Mean Corpuscular Hemoglobin 26.5L, Mean Corpuscular Hemoglobin Concent 29.0L, Red Cell Distribution Width 17.7H, Platelet Count 189, Mean Platelet Volume 8.7, Neutrophils (%) (Auto) , Lymphocytes (%) (Auto) , Monocytes (%) (Auto) , Eosinophils (%) (Auto) , Basophils (%) (Auto) , Differential Total Cells Counted 100, Neutrophils % ( Manual) 65, Lymphocytes % (Manual) 26, Monocytes % (Manual) 2, Eosinophils % ( Manual) 2, Basophils % (Manual) 0, Band Neutrophils 5, Platelet Estimate Adequate, Platelet Morphology Normal, Hypochromasia 1+, Anisocytosis 1+ Height (Feet): 5 Height (Inches): 7.00 Weight (Pounds): 147 Cardiovascular: normal rate Respiratory/Chest: lungs clear Abdomen: soft Hadadz,Ali MD Feb 20, 2019 20:49
--- NOTE | 2019-02-20 23:02 | Cardiology Progress Note ---
Assessment/Plan Assessment/Plan 1. Sinus tachycardia, resolved, continue hydration. 2. Hypoxemic hypercarbic respiratory failure. 3. Severe hypernatremia secondary volume contraction. 4. MANUEL Subjective Subjective Transferred to [facility]. Sinus rhythm at rate of 71. Objective Last 24 Hour Vital Signs Date Time Temp Pulse Resp B/P (MAP) Pulse Ox O2 Delivery O2 Flow Rate FiO2 02/20/19 20:00 Nasal Cannula 2.0 02/20/19 20:00 97.9 75 18 121/47 (71) 99 02/20/19 19:42 Nasal Cannula 02/20/19 19:40 54 18 97 Nasal Cannula 2.0 28 02/20/19 19:39 97 Nasal Cannula 2.0 28 02/20/19 19:00 75 20 109/41 (63) 100 02/20/19 18:00 76 20 108/39 (62) 100 02/20/19 17:00 74 20 110/39 (62) 100 02/20/19 16:00 Nasal Cannula 2.0 02/20/19 16:00 76 02/20/19 16:00 97.5 85 16 108/43 (64) 100 02/20/19 15:34 66 16 100 Nasal Cannula 2.0 28 02/20/19 15:24 63 20 100 Nasal Cannula 2.0 28 02/20/19 14:00 69 16 106/38 (60) 100 02/20/19 13:00 97.8 73 19 113/50 (71) 100 02/20/19 12:00 Nasal Cannula 2.0 02/20/19 12:00 77 19 96/41 (59) 100 02/20/19 11:26 86 02/20/19 11:00 77 20 94/45 (61) 100 02/20/19 10:52 78 18 100 Nasal Cannula 2.0 28 02/20/19 10:42 71 20 100 Nasal Cannula 2.0 28 02/20/19 10:00 77 27 133/47 (75) 100 02/20/19 09:00 98.7 86 20 111/59 (76) 100 02/20/19 08:00 86 02/20/19 08:00 Nasal Cannula 2.0 02/20/19 08:00 86 22 113/51 (71) 100 02/20/19 07:20 80 16 100 Nasal Cannula 2.0 28 02/20/19 07:19 88 18 100 Nasal Cannula 2.0 28 02/20/19 07:19 100 Nasal Cannula 2.0 28 02/20/19 07:12 88 14 100 Nasal Cannula 2.0 28 02/20/19 07:00 85 21 124/49 (74) 100 02/20/19 06:00 85 21 119/48 (71) 100 02/20/19 05:00 85 19 127/49 (75) 100 02/20/19 04:00 98.6 84 19 119/52 (74) 100 02/20/19 04:00 Nasal Cannula 2.0 02/20/19 04:00 87 02/20/19 03:14 81 18 100 Nasal Cannula 2.0 28 02/20/19 03:01 83 13 100 Nasal Cannula 2.0 28 02/20/19 03:00 78 19 122/38 (66) 100 02/20/19 02:00 92 19 127/41 (69) 100 02/20/19 01:00 90 19 164/49 (87) 100 02/20/19 00:00 98.0 91 19 154/62 (92) 100 02/20/19 00:00 92 02/20/19 00:00 Nasal Cannula 2.0 02/19/19 23:14 85 18 100 Nasal Cannula 2.0 28 02/19/19 23:07 86 21 100 Nasal Cannula 2.0 28 02/19/19 23:00 92 19 138/48 (78) 100 Intake and Output 02/19/19 02/20/19 19:00 07:00 Intake Total 1985.833 ml 1153.33 ml Output Total 760 ml 765 ml Balance 1225.833 ml 388.33 ml Intake Oral 0 ml 0 ml Free Water 0 ml 0 ml IV Total 1985.833 ml 1153.33 ml Output Urine Total 560 ml 765 ml Stool Total 200 ml # Bowel Movements 30 Laboratory Tests Test 02/20/19 03:35 02/20/19 07:15 Sodium Level 165 MMOL/L (136-145) *H Potassium Level 3.4 MMOL/L (3.5-5.1) L Chloride Level 130 MMOL/L (98-107) H Carbon Dioxide Level 27 MMOL/L (21-32) Anion Gap 8 mmol/L (5-15) Blood Urea Nitrogen 69 mg/dL (7-18) H Creatinine 1.2 MG/DL (0.55-1.30) Estimat Glomerular Filtration Rate mL/min (>60) Glucose Level 238 MG/DL (74-106) #H Uric Acid 5.6 MG/DL (2.6-7.2) Calcium Level 8.0 MG/DL (8.5-10.1) L Phosphorus Level 2.6 MG/DL (2.5-4.9) Magnesium Level 1.9 MG/DL (1.8-2.4) Total Bilirubin 0.3 MG/DL (0.2-1.0) Aspartate Amino Transf (AST/SGOT) 16 U/L (15-37) Alanine Aminotransferase (ALT/SGPT) 9 U/L (12-78) L Alkaline Phosphatase 73 U/L (46-116) C-Reactive Protein, Quantitative 69.4 mg/dL (0.00-0.90) H Pro-B-Type Natriuretic Peptide 3788 pg/mL (0-125) H Total Protein 6.7 G/DL (6.4-8.2) Albumin 1.8 G/DL (3.4-5.0) L Globulin 4.9 g/dL Albumin/Globulin Ratio 0.4 (1.0-2.7) L White Blood Count 10.6 K/UL (4.8-10.8) Red Blood Count 2.75 M/UL (4.20-5.40) L Hemoglobin 7.3 G/DL (12.0-16.0) L Hematocrit 25.1 % (37.0-47.0) L Mean Corpuscular Volume 91 FL (80-99) Mean Corpuscular Hemoglobin 26.5 PG (27.0-31.0) L Mean Corpuscular Hemoglobin Concent 29.0 G/DL (32.0-36.0) L Red Cell Distribution Width 17.7 % (11.6-14.8) H Platelet Count 189 K/UL (150-450) Mean Platelet Volume 8.7 FL (6.5-10.1) Neutrophils (%) (Auto) % (45.0-75.0) Lymphocytes (%) (Auto) % (20.0-45.0) Monocytes (%) (Auto) % (1.0-10.0) Eosinophils (%) (Auto) % (0.0-3.0) Basophils (%) (Auto) % (0.0-2.0) Differential Total Cells Counted 100 Neutrophils % (Manual) 65 % (45-75) Lymphocytes % (Manual) 26 % (20-45) Monocytes % (Manual) 2 % (1-10) Eosinophils % (Manual) 2 % (0-3) Basophils % (Manual) 0 % (0-2) Band Neutrophils 5 % (0-8) Platelet Estimate Adequate Platelet Morphology Normal Hypochromasia 1+ Anisocytosis 1+ Microbiology Date/Time Source Procedure Growth Status 02/18/19 12:50 Blood Blood Culture - Preliminary NO GROWTH AFTER 24 HOURS Resulted 02/18/19 12:35 Blood Blood Culture - Preliminary NO GROWTH AFTER 24 HOURS Resulted 02/18/19 12:50 Urine,Clean Catch Urine Culture - Preliminary Morganella Morg Spp Morganii Resulted 02/18/19 20:45 Sacral Wound Gram Stain - Final Resulted 02/18/19 20:45 Wound Culture - Preliminary Gram Negative Bacillus 1 Resulted Objective HEENT: normocephalic, atraumatic, bilateral eye PERRL, + dry mucus membranes Neck: - JVD, no carotid bruit Respiratory: crackles bilaterally Cardiovascular: Normal S1S2, tachycardia, no murmurs, gallops or rubs. Gastrointestinal: non tender, soft, non-distended, colostomy bag in the left mid abdomen Musculoskeletal: No edema, clubbing or cyanosis. Logan Arias MD Feb 20, 2019 23:02
[2019-02-21] VITALS: BP 119/50
--- NOTE | 2019-02-21 01:00 | Consultation ---
DATE OF CONSULTATION: 02/21/2019 UROLOGY CONSULTATION CONSULTING PHYSICIAN: Ebenezer Carver M.D. ATTENDING/REFERRING PHYSICIAN: Danial Walden M.D. CHIEF COMPLAINT/HISTORY OF PRESENT ILLNESS: I was asked by Dr. 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 Briefly, the patient presents to the hospital with hyperglycemia, severe hypernatremia, and acute on chronic renal insufficiency. She had a CT scan revealing some abnormalities within the bladder and kidneys. As such, I was asked to evaluate the patient. PAST MEDICAL HISTORY: 1. Diabetes mellitus. 2. Decubitus ulceration. 3. Chronic renal insufficiency. 4. Possible psychosis. PAST SURGICAL HISTORY: 1. Colon resection/colostomy. 2. Right knee surgery, NOS. MEDICATIONS: Please see chart for current medications administration details. ALLERGIES: Include allopurinol. SOCIAL HISTORY: Unobtainable as the patient cannot answer many questions. FAMILY HISTORY: Unobtainable. REVIEW OF SYSTEMS: A 14-system review of systems was difficult to obtain due to the patient not answering many questions. PHYSICAL EXAMINATION: GENERAL: The patient is an elderly female, resting comfortably, in no obvious distress. HEENT: NC/AT. Oropharynx clear. NECK: Supple. CHEST: Within normal limits. ABDOMEN: Soft, nontender, nondistended. Colostomy pink and viable. EXTREMITIES: Warm, well perfused. No cyanosis, clubbing, or edema. NEUROLOGIC: Grossly nonfocal. LABORATORY DATA: White blood cell count 10.6, hematocrit 25.1, platelets 189. PT, PTT, INR within normal limits. Sodium 165, potassium 3.4, chloride 130, bicarbonate 27, BUN 69, creatinine 1.2, glucose 238. Calcium 8.0. LFTs within normal limits. Troponin negative. Urinalysis, specific gravity 1.010, pH 8.0. Dip test notable for 3+ protein, 4+ occult blood, 3+ leukocyte esterase, 4+ glucose. Microanalysis with 10 to 15 red and too numerous to count white blood cells per high-power field and few bacteria seen. Urine culture with 100,000 colonies of Morganella morganii species sensitive to ceftriaxone. The patient is receiving cefepime for antibiotic coverage. Blood cultures negative. DIAGNOSTIC IMAGING: CT scan of the abdomen and pelvis reveals abnormal bladder with wall thickening and extensive stranding of the pericystic fat. There is gas within the bladder lumen presumably related to Agarwal catheter. However, gas bubbles at the periphery of the dome are concerning for intramural gas consistent with emphysematous cystitis. There is a tiny right distal ureteral calculus with moderate hydronephrosis. There are bilateral intrarenal calculi measuring up to 1.75 cm in size, which are nonobstructing. There are other findings as delineated in the report. ASSESSMENT AND PLAN: In summary, the patient is an 83-year-old female with a history of acute on chronic renal insufficiency as well as hypernatremia and hyperchloremia. She appears to be significantly dehydrated. Workup for the same revealed the CT scan findings above and urine culture has grown a urinary tract infection being treated with cefepime. It appears that this patient's bladder gas bubbles are likely secondary to her catheter even if there was a small amount of intramural air consistent with emphysematous pyelonephritis. The patient appears to have no clinical consequence from the same and is improving on the antibiotics as evidenced by her decreasing white blood cell count and lack of any fevers, tachycardia, hypertension etc. I would treat her infection with 7 to 10 days of antibiotics per sensitivities. I would observe her regarding her kidney stones. The only ureteral stone she has is described as tiny and should pass on its own. Thank you for allowing me to participate in the care of this unfortunate lady. Please do not hesitate to contact me for any questions that you may further have regarding her care. I will see her with you as needed. Ebenezer Carver M.D. DR: ISACC JOB#: [id number] CC:
--- NOTE | 2019-02-21 01:30 | Consultation ---
DATE OF CONSULTATION: 02/19/2019 CARDIOLOGY CONSULTATION CONSULTING PHYSICIAN: Logan Arias M.D. REFERRING PHYSICIAN: Danial Walden M.D. REASON FOR CONSULTATION: Management of tachycardia. HISTORY OF PRESENT ILLNESS: The patient is a very unfortunate 83-year-old female, who is a resident of a nursing facility, was transferred to [facility] emergency department for evaluation of altered level of consciousness. Apparently, the patient had been altered, according to the nursing facility staff members, for just about 8 hours. The patient's glucose was too high to read at the nursing facility. There was no other reports from the facility. Unfortunately, the patient is nonverbal and cannot provide any history. This report is prepared by using the old records. At the time of arrival to the hospital, blood pressure was 101/82 mmHg and heart rate was 101. A 12-lead electrocardiogram in the emergency department confirmed sinus tachycardia rate of 109 with nonspecific T-wave abnormalities. QT interval was within normal limits at 441 millisecond. The patient's laboratory data in the emergency department revealed leukocytosis with WBC count of 12.1, anemia with hemoglobin of 10.3, and electrolyte abnormalities including sodium of 163, potassium of 6.1, and BUN and creatinine of 119 and 2.2 respectively. The patient's blood glucose was 918. Bicarbonate level was 35, suggestive of possible hyperosmolar coma. Initial troponin I level was 0 and proBNP was 670. The patient's arterial blood gas revealed hypoxemic hypercarbic respiratory failure. The patient was admitted to intensive care unit for further evaluation and management. Cardiology consultation was made for assessment of tachycardia. PAST MEDICAL HISTORY: 1. Diabetes mellitus. 2. Hypertension. 3. COPD. 4. Dysphagia, status post PEG placement. 5. Anemia. 6. Prior history of CVA. 7. Prior history of colostomy. PAST SURGICAL HISTORY: 1. Colostomy. 2. PEG placement. ALLERGIES: Allopurinol. MEDICATIONS: List of medications in the nursing facility include acetaminophen 20 mL G-tube daily, Pro-Stat liquid 30 mL G-tube three times a day, ascorbic acid 500 mg G-tube daily, citric acid and sodium citrate 30 mL G-tube twice daily, folic acid 1 mg G-tube daily, heparin sodium 5000 units subcutaneous q.12 hours, hydralazine 10 mg q.4 hours oral p.r.n. for systolic blood pressure above 160, multivitamin and mineral liquid 15 mL G-tube daily, ____ packet each G-tube three times a day, Zofran 4 mg G-tube q.4 hours p.r.n. nausea and vomiting, risperidone 0.25 mg G-tube nightly, and zinc sulfate 220 mg G-tube daily. SOCIAL HISTORY: Resident of a senior living facility. No history of tobacco, alcohol, or illicit drug use. FAMILY HISTORY: No premature coronary artery disease in the first-degree relatives. REVIEW OF SYSTEMS: The patient is nonverbal, therefore 12-system review cannot be obtained. PHYSICAL EXAMINATION: VITAL SIGNS: Blood pressure was 101/82, pulse 101, respirations 24, and temperature 98.1 degrees Fahrenheit. O2 saturation 98% on room air. GENERAL: The patient is a very unfortunate 83-year-old female, in no apparent respiratory distress and nonverbal. HEENT: Atraumatic and normocephalic. Bitemporal wasting. Pupils are equal, round, and reactive to light and accommodation. NECK: JVP less than 5 cm. No carotid bruits. CARDIOVASCULAR: Normal S1, S2. Regular rhythm. Tachycardic. LUNGS: Diminished breath sounds in both bases. ABDOMEN: Nontender, soft. Colostomy bag in place in the left mid abdomen, PEG in place. MUSCULOSKELETAL: No edema, clubbing, or cyanosis. LABORATORY FINDINGS: WBC 12.1, hemoglobin 10.3, hematocrit 36.4, and platelet count 339,000. Chemistry showed sodium 163, potassium 6.1, chloride 125, bicarbonate 35, BUN 119, and creatinine 2.2. Glucose is 918. Calcium is 10.5. Troponin I is 0. ProBNP 670. INR is 1.0. Chest x-ray showed no acute cardiopulmonary disease. ASSESSMENT AND PLAN: The patient is a very unfortunate 83-year-old female, seen in Cardiology consultation. 1. Sinus tachycardia. Given severe hypernatremia and renal failure, the patient most likely is suffering from intravascular contraction. The patient requires aggressive hydration with hypotonic solution. The rate of hydration will be adjusted by the copper plate lithographer to avoid cerebral edema. At this time, no AV aristeo agent is appropriate for management of sinus tachycardia, as sinus tachycardia would be most likely be treated by eliminating hypovolemia. 2. History of CVA with aphasia, consider aspirin and statin. Total amount of time spent in the intensive care unit of [facility] reviewing the old records and discussing the plan of care with the ancillary service and primary care physician was 50 minutes. I would like to thank for the courtesy of this consultation. Logan Arias M.D. DR: [place] JOB#: [id number] CC:
[2019-02-21] MEDS: Albuterol/Ipratropium 3ml neb HHN SCH ×6 (02:33→23:00)
[2019-02-21 04:00] VITALS: BP 119/76
--- NOTE | 2019-02-21 05:00 | NUR ---
NURSE NOTES: RECEIVED PATIENT FROM [facility].PATIENT SLEEPING COMFORTABLY IN LOW AIR LOSS BED WITH 02 2LITER/NC WITH SPO2 96%.VS STABLE.NO COMPLAIN OF PAIN AT THIS TIME.
[2019-02-21 06:14] LABS: HEMATOCRIT 25.4 % (37.0-47.0); HEMOGLOBIN 7.7 G/DL (12.0-16.0); MEAN CORPUSCULAR VOLUME 89 FL (80-99); PLATELET COUNT 162 K/UL (150-450); RED BLOOD COUNT 2.85 M/UL (4.20-5.40); RED CELL DISTRIBUTION WIDTH 16.5 % (11.6-14.8); WHITE BLOOD COUNT 8.6 K/UL (4.8-10.8)
[2019-02-21] MEDS: NovoLOG Insulin Flexpen SUBQ SCH ×4 (06:25→20:28)
[2019-02-21 06:29] LABS: ALANINE AMINOTRANSFERASE 9 U/L (12-78); ALBUMIN 1.6 G/DL (3.4-5.0); ALBUMIN/GLOBULIN RATIO 0.3 (1.0-2.7); ALKALINE PHOSPHATASE 76 U/L (46-116); ANION GAP 5 mmol/L (5-15); ASPARTATE AMINO TRANSFERASE 13 U/L (15-37); BILIRUBIN,TOTAL 0.4 MG/DL (0.2-1.0); BLOOD UREA NITROGEN 39 mg/dL (7-18); CALCIUM 7.4 MG/DL (8.5-10.1); CARBON DIOXIDE 26 MMOL/L (21-32); CHLORIDE 123 MMOL/L (98-107); CREATININE 1.2 MG/DL (0.55-1.30); POTASSIUM 3.5 MMOL/L (3.5-5.1); SODIUM 154 MMOL/L (136-145)
--- NOTE | 2019-02-21 06:34 | General Progress Note ---
Assessment/Plan Problem List: (1) Diabetes mellitus out of control ICD Codes: E11.65 - Type 2 diabetes mellitus with hyperglycemia SNOMED: 56416221, 061413999 (2) Decubitus ulcer of sacral region, stage 4 ICD Codes: L89.154 - Pressure ulcer of sacral region, stage 4 SNOMED: 550015655, 018514269 (3) Sepsis ICD Codes: A41.9 - Sepsis, unspecified organism SNOMED: 01165039 (4) Electrolyte imbalance ICD Codes: E87.8 - Other disorders of electrolyte and fluid balance, not elsewhere classified SNOMED: 445040643 (5) Altered level of consciousness ICD Codes: R40.4 - Transient alteration of awareness SNOMED: 0183306 (6) Renal failure (ARF), acute on chronic ICD Codes: N17.9 - Acute kidney failure, unspecified; N18.9 - Chronic kidney disease, unspecified SNOMED: 246875534 (7) PEG (percutaneous endoscopic gastrostomy) status ICD Codes: Z93.1 - Gastrostomy status SNOMED: 354118813, 531099376 (8) Colostomy status ICD Codes: Z93.3 - Colostomy status SNOMED: 76640329, 997735484, 737036444 Status: progressing, unchanged Assessment/Plan: continue Levemir 6 units bid continue Novolog sliding scale 4 times daily Subjective ROS Limited/Unobtainable: Yes Allergies: Coded Allergies: ALLOPURINOL (Verified Allergy, Unknown, 12/20/18) Subjective events noted glucose values improved Item Value Date Time Bedside Blood Glucose 144 mg/dl H 02/21/19 0625 Bedside Blood Glucose 162 mg/dl H 02/20/19 2100 Bedside Blood Glucose 177 mg/dl H 02/20/19 1738 Bedside Blood Glucose 295 mg/dl H 02/20/19 1229 Bedside Blood Glucose 309 mg/dl H 02/20/19 0921 Bedside Blood Glucose 238 mg/dl H 02/20/19 0654 Objective Last 24 Hour Vital Signs Date Time Temp Pulse Resp B/P (MAP) Pulse Ox O2 Delivery O2 Flow Rate FiO2 02/21/19 04:00 Nasal Cannula 2.0 02/21/19 04:00 98.1 72 20 119/76 (90) 100 02/21/19 04:00 73 02/21/19 02:34 Nasal Cannula 02/21/19 02:33 Nasal Cannula 02/21/19 00:00 Nasal Cannula 2.0 02/21/19 00:00 97.2 71 18 119/50 (73) 100 02/20/19 23:33 67 02/20/19 23:11 Nasal Cannula 02/20/19 23:08 73 18 97 Nasal Cannula 2.0 28 02/20/19 20:00 Nasal Cannula 2.0 02/20/19 20:00 97.9 75 18 121/47 (71) 99 02/20/19 19:42 Nasal Cannula 02/20/19 19:40 54 18 97 Nasal Cannula 2.0 28 02/20/19 19:39 97 Nasal Cannula 2.0 28 02/20/19 19:17 77 02/20/19 19:00 75 20 109/41 (63) 100 02/20/19 18:00 76 20 108/39 (62) 100 02/20/19 17:00 74 20 110/39 (62) 100 02/20/19 16:00 Nasal Cannula 2.0 02/20/19 16:00 76 02/20/19 16:00 97.5 85 16 108/43 (64) 100 02/20/19 15:34 66 16 100 Nasal Cannula 2.0 28 02/20/19 15:24 63 20 100 Nasal Cannula 2.0 28 02/20/19 14:00 69 16 106/38 (60) 100 02/20/19 13:00 97.8 73 19 113/50 (71) 100 02/20/19 12:00 Nasal Cannula 2.0 02/20/19 12:00 77 19 96/41 (59) 100 02/20/19 11:26 86 02/20/19 11:00 77 20 94/45 (61) 100 02/20/19 10:52 78 18 100 Nasal Cannula 2.0 28 02/20/19 10:42 71 20 100 Nasal Cannula 2.0 28 02/20/19 10:00 77 27 133/47 (75) 100 02/20/19 09:00 98.7 86 20 111/59 (76) 100 02/20/19 08:00 86 02/20/19 08:00 Nasal Cannula 2.0 02/20/19 08:00 86 22 113/51 (71) 100 02/20/19 07:20 80 16 100 Nasal Cannula 2.0 02/20/19 07:19 88 18 100 Nasal Cannula 2.0 28 02/20/19 07:19 100 Nasal Cannula 2.0 02/20/19 07:12 88 14 100 Nasal Cannula 2.0 02/20/19 07:00 85 21 124/49 (74) 100 Intake and Output 02/20/19 02/21/19 18:59 06:59 Intake Total 1500 ml 1155 ml Output Total 1010 ml 575 ml Balance 490 ml 580 ml Intake Oral 0 ml 0 ml Free Water 0 ml IV Total 1250 ml 1155 ml Blood Product 250 ml Output Urine Total 980 ml 525 ml Stool Total 30 ml 50 ml Laboratory Tests 02/20/19 07:15: White Blood Count 10.6, Red Blood Count 2.75L, Hemoglobin 7.3L, Hematocrit 25.1L , Mean Corpuscular Volume 91, Mean Corpuscular Hemoglobin 26.5L, Mean Corpuscular Hemoglobin Concent 29.0L, Red Cell Distribution Width 17.7H, Platelet Count 189, Mean Platelet Volume 8.7, Neutrophils (%) (Auto) , Lymphocytes (%) (Auto) , Monocytes (%) (Auto) , Eosinophils (%) (Auto) , Basophils (%) (Auto) , Differential Total Cells Counted 100, Neutrophils % ( Manual) 65, Lymphocytes % (Manual) 26, Monocytes % (Manual) 2, Eosinophils % ( Manual) 2, Basophils % (Manual) 0, Band Neutrophils 5, Platelet Estimate Adequate, Platelet Morphology Normal, Hypochromasia 1+, Anisocytosis 1+ 02/21/19 04:00: White Blood Count 8.6, Red Blood Count 2.85L, Hemoglobin 7.7L, Hematocrit 25.4L , Mean Corpuscular Volume 89, Mean Corpuscular Hemoglobin 27.2, Mean Corpuscular Hemoglobin Concent 30.5L, Red Cell Distribution Width 16.5H, Platelet Count 162, Mean Platelet Volume 8.8, Neutrophils (%) (Auto) , Lymphocytes (%) (Auto) , Monocytes (%) (Auto) , Eosinophils (%) (Auto) , Basophils (%) (Auto) , Sodium Level [Pending], Potassium Level [Pending], Chloride Level [Pending], Carbon Dioxide Level [Pending], Blood Urea Nitrogen [ Pending], Creatinine [Pending], Estimat Glomerular Filtration Rate [Pending], Glucose Level [Pending], Calcium Level [Pending], Total Bilirubin [Pending], Aspartate Amino Transf (AST/SGOT) [Pending], Alanine Aminotransferase (ALT/SGPT ) [Pending], Alkaline Phosphatase [Pending], Total Protein [Pending], Albumin [ Pending], Globulin [Pending] Height (Feet): 5 Height (Inches): 7.00 Weight (Pounds): 151 General Appearance: no apparent distress Neck: normal alignment Cardiovascular: normal rate Respiratory/Chest: decreased breath sounds Abdomen: normal bowel sounds Objective Current Medications Medications (Trade) Dose Ordered Sig/Nora Route PRN Reason Start Time Stop Time Status Last Admin Dose Admin Albuterol/ Ipratropium (Albuterol/ Ipratropium) 3 ml Q4HRT HHN 02/20/19 19:00 02/23/19 22:59 Aspirin (Ecotrin) 81 mg DAILY ORAL 02/21/19 09:00 03/21/19 12:29 Atorvastatin Calcium (Lipitor) 40 mg BEDTIME ORAL 02/20/19 21:00 03/21/19 20:59 02/20/19 20:19 Cefepime HCl 1 gm/ Dextrose 55 ml @ 110 mls/hr Q24H IVPB 02/20/19 20:00 02/25/19 19:59 02/20/19 19:56 Chlorhexidine Gluconate (Valentina-Hex 2%) 1 applic DAILY@2000 TOPIC 02/20/19 20:00 03/21/19 19:59 02/20/19 19:56 Dextrose 1,000 ml @ 100 mls/hr Q10H IV 02/20/19 19:00 03/21/19 07:08 02/21/19 05:07 Dextrose (Dextrose 50%) 25 ml Q30M PRN IV Hypoglycemia 02/20/19 19:30 03/21/19 08:59 Dextrose (Dextrose 50%) 50 ml Q30M PRN IV Hypoglycemia 02/20/19 19:30 03/21/19 08:59 Insulin Aspart (NovoLOG) BEFORE MEALS AND HS SUBQ 02/20/19 21:00 03/21/19 11:29 02/21/19 06:25 Insulin Detemir (Levemir) 6 units BID SUBQ 02/21/19 09:00 03/21/19 08:59 Pantoprazole (Protonix) 40 mg EVERY 12 HOURS IVP 02/20/19 21:00 03/22/19 10:29 02/20/19 20:18 Pablo Day MD Feb 21, 2019 06:34
[2019-02-21 08:00] VITALS: BP 104/65
--- NOTE | 2019-02-21 08:10 | NUR ---
NURSE NOTES: received pt in the bed, awake, confused, vital signs stable, no co pain, no SOB, skin warm and dry to touch, dressing dry and intact on sacral area, GT clump,colostomy,TLC RT femoral, dressing dry and intact,bed in low position, HOB elevated.
[2019-02-21] MEDS: Aspirin EC 81mg tab ORAL SCH (08:41)
[2019-02-21] MEDS: Pantoprazole Inj IVP SCH ×2 (08:41→20:25)
[2019-02-21 08:42] LABS: PHOSPHORUS 1.6 MG/DL (2.5-4.9)
[2019-02-21] MEDS: Levemir Flexpen SUBQ SCH ×2 (08:44→17:12)
--- NOTE | 2019-02-21 08:51 | NUR ---
CASE MANAGEMENT: REVIEW 02/21/2019 SI:SEPSIS. HYPEROSMOLAR HYPERGLYCEMIA. T 98.1 HR 68 RR 20 B/P 104/65 SATS 100% ON 2L/NC HGB 7.7 HCT 25.4 NA 154 CL 123 BUN 39 GLU 116 CA 7.4 PHOS 1.6 MG 1.5 AST 13 ALT 9 IS:IVF @ 100 mL/HR PROTONIX IV Q12H LIPITOR PO QHS LEVEMIR SUBQ BID ASA PO QD INSULIN ASPART SUBQ AC/HS CEFEPIME IV Q24H SDU DCP: PATIENT TO BE DISCHARGED TO SNF ONCE MEDICALLY CLEARED. PLAN OF CARE: CONTINUED GLYCEMIC CONTROL AND MENTIONING IVF AND IV ANTIBx
--- NOTE | 2019-02-21 10:13 | GI Progress Note ---
Assessment/Plan Problems: (1) Electrolyte imbalance ICD Codes: E87.8 - Other disorders of electrolyte and fluid balance, not elsewhere classified SNOMED: 503772018 (2) Sepsis ICD Codes: A41.9 - Sepsis, unspecified organism SNOMED: 45856324 (3) Decubitus ulcer of sacral region, stage 4 ICD Codes: L89.154 - Pressure ulcer of sacral region, stage 4 SNOMED: 341687900, 468956241 (4) Altered level of consciousness ICD Codes: R40.4 - Transient alteration of awareness SNOMED: 1725407 (5) Renal failure (ARF), acute on chronic ICD Codes: N17.9 - Acute kidney failure, unspecified; N18.9 - Chronic kidney disease, unspecified SNOMED: 365425830 (6) Hypotension ICD Codes: I95.9 - Hypotension, unspecified SNOMED: 40320234 (7) Anemia ICD Codes: D64.9 - Anemia, unspecified SNOMED: 791967406 (8) Colostomy status ICD Codes: Z93.3 - Colostomy status SNOMED: 97220845, 321785218, 275913432 (9) PEG (percutaneous endoscopic gastrostomy) status ICD Codes: Z93.1 - Gastrostomy status SNOMED: 525113448, 307861254 Status: stable Status Narrative Discussed with Dr. Vora. Assessment/Plan AMS G Tube dependent colostomy dependent hypernatremia no plans for GI procedures at this time, only if emergent start GTFs low rate electrolyte correction anemia work up OB stool r/o GI bleed monitor H&H, prn transfusions bowel regimen ppi hold iron supplementation given elevated ferritin levels GT/colostomy site care fu labs The patient was seen and examined at bedside and all new and available data was reviewed in the patients chart. I agree with the above findings, impression and plan. (Patient seen earlier today. Signature stamp does not reflect patient encounter time.). - Horacio Vora MD Subjective Subjective limited Objective Last 24 Hour Vital Signs Date Time Temp Pulse Resp B/P (MAP) Pulse Ox O2 Delivery O2 Flow Rate FiO2 02/21/19 08:00 70 02/21/19 08:00 98.1 68 20 104/65 (78) 100 02/21/19 08:00 Nasal Cannula 2.0 02/21/19 07:27 100 Nasal Cannula 2.0 28 02/21/19 07:27 66 18 100 Nasal Cannula 2.0 28 02/21/19 07:27 Nasal Cannula 02/21/19 04:00 Nasal Cannula 2.0 02/21/19 04:00 98.1 72 20 119/76 (90) 100 02/21/19 04:00 73 02/21/19 02:34 Nasal Cannula 02/21/19 02:33 Nasal Cannula 02/21/19 00:00 Nasal Cannula 2.0 02/21/19 00:00 97.2 71 18 119/50 (73) 100 02/20/19 23:33 67 02/20/19 23:11 Nasal Cannula 02/20/19 23:08 73 18 97 Nasal Cannula 2.0 28 02/20/19 20:00 Nasal Cannula 2.0 02/20/19 20:00 97.9 75 18 121/47 (71) 99 02/20/19 19:42 Nasal Cannula 02/20/19 19:40 54 18 97 Nasal Cannula 2.0 28 02/20/19 19:39 97 Nasal Cannula 2.0 28 02/20/19 19:17 77 02/20/19 19:00 75 20 109/41 (63) 100 02/20/19 18:00 76 20 108/39 (62) 100 02/20/19 17:00 74 20 110/39 (62) 100 02/20/19 16:00 Nasal Cannula 2.0 02/20/19 16:00 76 02/20/19 16:00 97.5 85 16 108/43 (64) 100 02/20/19 15:34 66 16 100 Nasal Cannula 2.0 28 02/20/19 15:24 63 20 100 Nasal Cannula 2.0 28 02/20/19 14:00 69 16 106/38 (60) 100 02/20/19 13:00 97.8 73 19 113/50 (71) 100 02/20/19 12:00 Nasal Cannula 2.0 02/20/19 12:00 77 19 96/41 (59) 100 02/20/19 11:26 86 02/20/19 11:00 77 20 94/45 (61) 100 02/20/19 10:52 78 18 100 Nasal Cannula 2.0 28 02/20/19 10:42 71 20 100 Nasal Cannula 2.0 28 Intake and Output 02/20/19 02/21/19 19:00 07:00 Intake Total 1500 ml 1155 ml Output Total 1010 ml 475 ml Balance 490 ml 680 ml Intake Oral 0 ml Free Water 0 ml IV Total 1250 ml 1155 ml Blood Product 250 ml Output Urine Total 980 ml 425 ml Stool Total 30 ml 50 ml Laboratory Tests Test 02/21/19 04:00 White Blood Count 8.6 K/UL (4.8-10.8) Red Blood Count 2.85 M/UL (4.20-5.40) L Hemoglobin 7.7 G/DL (12.0-16.0) L Hematocrit 25.4 % (37.0-47.0) L Mean Corpuscular Volume 89 FL (80-99) Mean Corpuscular Hemoglobin 27.2 PG (27.0-31.0) Mean Corpuscular Hemoglobin Concent 30.5 G/DL (32.0-36.0) L Red Cell Distribution Width 16.5 % (11.6-14.8) H Platelet Count 162 K/UL (150-450) Mean Platelet Volume 8.8 FL (6.5-10.1) Neutrophils (%) (Auto) % (45.0-75.0) Lymphocytes (%) (Auto) % (20.0-45.0) Monocytes (%) (Auto) % (1.0-10.0) Eosinophils (%) (Auto) % (0.0-3.0) Basophils (%) (Auto) % (0.0-2.0) Sodium Level 154 MMOL/L (136-145) H Potassium Level 3.5 MMOL/L (3.5-5.1) Chloride Level 123 MMOL/L (98-107) H Carbon Dioxide Level 26 MMOL/L (21-32) Anion Gap 5 mmol/L (5-15) Blood Urea Nitrogen 39 mg/dL (7-18) H Creatinine 1.2 MG/DL (0.55-1.30) Estimat Glomerular Filtration Rate mL/min (>60) Glucose Level 116 MG/DL (74-106) #H Calcium Level 7.4 MG/DL (8.5-10.1) L Phosphorus Level 1.6 MG/DL (2.5-4.9) L Magnesium Level 1.5 MG/DL (1.8-2.4) L Total Bilirubin 0.4 MG/DL (0.2-1.0) Aspartate Amino Transf (AST/SGOT) 13 U/L (15-37) L Alanine Aminotransferase (ALT/SGPT) 9 U/L (12-78) L Alkaline Phosphatase 76 U/L (46-116) Total Protein 6.9 G/DL (6.4-8.2) Albumin 1.6 G/DL (3.4-5.0) L Globulin 5.3 g/dL Albumin/Globulin Ratio 0.3 (1.0-2.7) L Height (Feet): 5 Height (Inches): 7.00 Weight (Pounds): 151 General Appearance: WD/WN, no apparent distress, alert Cardiovascular: normal rate Respiratory/Chest: normal breath sounds, no respiratory distress Abdominal Exam: normal bowel sounds, non tender, soft Extremities: non-tender Luis Arechiga NP Feb 21, 2019 10:13
--- NOTE | 2019-02-21 10:27 | Hematology/Onc Progress Note ---
Assessment/Plan Assessment/Plan Assessment and Recs: # Anemia of chronic disease due to underlying chronic medical issues, multifactorial, ferritin 366, tibc 144 --> Anemia workup has been reviewed, rule out gi bleed --> No evidence of hemolysis is noted, peripheral smear has been reviewed. --> Hgb goal >7. Transfuse prn. --> Epogen or iron at this time is not particularly indicated --> Medications have been reviewed --> low threshold for gi evaluation in case has occult + --> Hgb trend:>8.4-->8-->7.3-->7.7 # Recanalized dvt of the right lower extremity --> given it has healed/recanalized, is not acute okay for just heparin prophylactic dosing --> continue heparin sq bid dosing once hgb >8 # Leukocytosis/elevated white blood cell count, is due to underlying sepsis urine infection+ --> Currently resolved --> ID is following, appreciate recs --> have reviewed peripheral smear and bandemia/neutrophilia noted --> continue antibiotics per ID cefepime/vanc --> monitor for resolution --> trend 17.4-->11.2-->8.3 -->12-->8.6 # Respiratory failure with hypoxia --> Currently on NC 12/28 --> pulm eval --> prior intubation 12/2018 # Sacral decubitus ulcer, stage IV --> per surg, wound care # HCAP (healthcare-associated pneumonia) # ARF (acute renal failure) --> per renal # Hyperglycemia due to type 2 diabetes mellitus --> per endo # Acute metabolic encephalopathy # Severe dehydration # DVT pxx with scds now The timing of this note does not necessarily reflect the time of the patient was seen. Subjective Allergies: Coded Allergies: ALLOPURINOL (Verified Allergy, Unknown, 12/20/18) Subjective 02/19: remains in icu, labs reviewed, bs is better today, on abx 02/20: on cefepime and have discontinued vanc, no bleeding noted, hgb reviewed 02/21: on abx, vs stable, denies pain, no distress Objective Objective Current Medications Medications (Trade) Dose Ordered Sig/Nora Route PRN Reason Start Time Stop Time Status Last Admin Dose Admin Albuterol/ Ipratropium (Albuterol/ Ipratropium) 3 ml Q4HRT HHN 02/20/19 19:00 02/23/19 22:59 02/21/19 07:27 Aspirin (Ecotrin) 81 mg DAILY ORAL 02/21/19 09:00 03/21/19 12:29 02/21/19 08:41 Atorvastatin Calcium (Lipitor) 40 mg BEDTIME ORAL 02/20/19 21:00 03/21/19 20:59 02/20/19 20:19 Cefepime HCl 1 gm/ Dextrose 55 ml @ 110 mls/hr Q24H IVPB 02/20/19 20:00 02/25/19 19:59 02/20/19 19:56 Chlorhexidine Gluconate (Valentina-Hex 2%) 1 applic DAILY@2000 TOPIC 02/20/19 20:00 03/21/19 19:59 02/20/19 19:56 Dextrose 1,000 ml @ 100 mls/hr Q10H IV 02/20/19 19:00 03/21/19 07:08 02/21/19 05:07 Dextrose (Dextrose 50%) 25 ml Q30M PRN IV Hypoglycemia 02/20/19 19:30 03/21/19 08:59 Dextrose (Dextrose 50%) 50 ml Q30M PRN IV Hypoglycemia 02/20/19 19:30 03/21/19 08:59 Insulin Aspart (NovoLOG) BEFORE MEALS AND HS SUBQ 02/20/19 21:00 03/21/19 11:29 02/21/19 06:25 Insulin Detemir (Levemir) 6 units BID SUBQ 02/21/19 09:00 03/21/19 08:59 02/21/19 08:44 Pantoprazole (Protonix) 40 mg EVERY 12 HOURS IVP 02/20/19 21:00 03/22/19 10:29 02/21/19 08:41 Last 24 Hour Vital Signs Date Time Temp Pulse Resp B/P (MAP) Pulse Ox O2 Delivery O2 Flow Rate FiO2 02/21/19 08:00 70 02/21/19 08:00 98.1 68 20 104/65 (78) 100 02/21/19 08:00 Nasal Cannula 2.0 02/21/19 07:27 100 Nasal Cannula 2.0 28 02/21/19 07:27 66 18 100 Nasal Cannula 2.0 28 02/21/19 07:27 Nasal Cannula 02/21/19 04:00 Nasal Cannula 2.0 02/21/19 04:00 98.1 72 20 119/76 (90) 100 02/21/19 04:00 73 02/21/19 02:34 Nasal Cannula 02/21/19 02:33 Nasal Cannula 02/21/19 00:00 Nasal Cannula 2.0 02/21/19 00:00 97.2 71 18 119/50 (73) 100 02/20/19 23:33 67 02/20/19 23:11 Nasal Cannula 02/20/19 23:08 73 18 97 Nasal Cannula 2.0 28 02/20/19 20:00 Nasal Cannula 2.0 02/20/19 20:00 97.9 75 18 121/47 (71) 99 02/20/19 19:42 Nasal Cannula 02/20/19 19:40 54 18 97 Nasal Cannula 2.0 28 02/20/19 19:39 97 Nasal Cannula 2.0 28 02/20/19 19:17 77 02/20/19 19:00 75 20 109/41 (63) 100 02/20/19 18:00 76 20 108/39 (62) 100 02/20/19 17:00 74 20 110/39 (62) 100 02/20/19 16:00 Nasal Cannula 2.0 02/20/19 16:00 76 02/20/19 16:00 97.5 85 16 108/43 (64) 100 02/20/19 15:34 66 16 100 Nasal Cannula 2.0 28 02/20/19 15:24 63 20 100 Nasal Cannula 2.0 28 02/20/19 14:00 69 16 106/38 (60) 100 02/20/19 13:00 97.8 73 19 113/50 (71) 100 02/20/19 12:00 Nasal Cannula 2.0 02/20/19 12:00 77 19 96/41 (59) 100 02/20/19 11:26 86 02/20/19 11:00 77 20 94/45 (61) 100 02/20/19 10:52 78 18 100 Nasal Cannula 2.0 28 02/20/19 10:42 71 20 100 Nasal Cannula 2.0 28 02/20/19 10:00 77 27 133/47 (75) 100 02/20/19 09:00 98.7 86 20 111/59 (76) 100 02/20/19 08:00 86 02/20/19 08:00 Nasal Cannula 2.0 02/20/19 08:00 86 22 113/51 (71) 100 02/20/19 07:20 80 16 100 Nasal Cannula 2.0 28 02/20/19 07:19 88 18 100 Nasal Cannula 2.0 28 02/20/19 07:19 100 Nasal Cannula 2.0 28 02/20/19 07:12 88 14 100 Nasal Cannula 2.0 28 02/20/19 07:00 85 21 124/49 (74) 100 02/20/19 06:00 85 21 119/48 (71) 100 02/20/19 05:00 85 19 127/49 (75) 100 02/20/19 04:00 98.6 84 19 119/52 (74) 100 02/20/19 04:00 Nasal Cannula 2.0 02/20/19 04:00 87 02/20/19 03:14 81 18 100 Nasal Cannula 2.0 28 02/20/19 03:01 83 13 100 Nasal Cannula 2.0 28 02/20/19 03:00 78 19 122/38 (66) 100 02/20/19 02:00 92 19 127/41 (69) 100 02/20/19 01:00 90 19 164/49 (87) 100 02/20/19 00:00 98.0 91 19 154/62 (92) 100 02/20/19 00:00 92 02/20/19 00:00 Nasal Cannula 2.0 02/19/19 23:14 85 18 100 Nasal Cannula 2.0 28 02/19/19 23:07 86 21 100 Nasal Cannula 2.0 28 02/19/19 23:00 92 19 138/48 (78) 100 02/19/19 22:00 92 19 134/49 (77) 100 02/19/19 21:30 134/49 02/19/19 21:00 Nasal Cannula 2.0 02/19/19 21:00 92 19 134/49 (77) 100 02/19/19 20:30 92 19 119/49 (72) 100 02/19/19 20:00 98.8 91 6 84/28 (46) 100 02/19/19 20:00 89 02/19/19 19:18 91 18 98 Nasal Cannula 2.0 28 02/19/19 19:08 92 19 100 Nasal Cannula 2.0 28 02/19/19 19:08 100 Nasal Cannula 2.0 28 02/19/19 19:08 92 19 100 Nasal Cannula 2.0 28 02/19/19 19:00 91 15 93/43 (60) 100 02/19/19 19:00 92 16 93/43 (60) 100 02/19/19 18:00 91 15 102/27 (52) 100 02/19/19 17:00 98.2 100 19 120/83 (95) 100 02/19/19 16:00 100 02/19/19 16:00 99 16 120/81 (94) 100 02/19/19 16:00 2.0 02/19/19 16:00 Nasal Cannula 2.0 02/19/19 15:12 94 18 98 Nasal Cannula 2.0 28 02/19/19 15:03 94 20 100 Nasal Cannula 2.0 28 02/19/19 15:00 93 18 91/36 (54) 100 02/19/19 14:00 98 13 85/47 (60) 100 02/19/19 13:00 98.0 102 19 107/47 (67) 100 02/19/19 12:00 104 17 95/34 (54) 100 02/19/19 12:00 Nasal Cannula 2.0 02/19/19 12:00 106 02/19/19 12:00 2.0 02/19/19 11:15 103 18 100 Nasal Cannula 2.0 28 02/19/19 11:00 104 17 103/43 (63) 100 02/19/19 10:57 105 20 100 Nasal Cannula 2.0 28 Intake and Output 02/20/19 02/21/19 19:00 07:00 Intake Total 1500 ml 1155 ml Output Total 1010 ml 475 ml Balance 490 ml 680 ml Intake Oral 0 ml Free Water 0 ml IV Total 1250 ml 1155 ml Blood Product 250 ml Output Urine Total 980 ml 425 ml Stool Total 30 ml 50 ml Labs Test 02/18/19 12:50 02/18/19 14:18 02/19/19 03:55 02/19/19 08:15 White Blood Count 12.1 K/UL (4.8-10.8) 12.0 K/UL (4.8-10.8) 12.3 K/UL (4.8-10.8) Red Blood Count 3.84 M/UL (4.20-5.40) 2.90 M/UL (4.20-5.40) 3.03 M/UL (4.20-5.40) Hemoglobin 10.3 G/DL (12.0-16.0) 7.6 G/DL (12.0-16.0) 8.0 G/DL (12.0-16.0) Hematocrit 36.4 % (37.0-47.0) 26.4 % (37.0-47.0) 27.4 % (37.0-47.0) Mean Corpuscular Volume 95 FL (80-99) 91 FL (80-99) 91 FL (80-99) Mean Corpuscular Hemoglobin 26.7 PG (27.0-31.0) 26.3 PG (27.0-31.0) 26.5 PG (27.0-31.0) Mean Corpuscular Hemoglobin Concent 28.2 G/DL (32.0-36.0) 28.9 G/DL (32.0-36.0) 29.3 G/DL (32.0-36.0) Red Cell Distribution Width 18.2 % (11.6-14.8) 17.7 % (11.6-14.8) 17.5 % (11.6-14.8) Platelet Count 339 K/UL (150-450) 238 K/UL (150-450) 230 K/UL (150-450) Mean Platelet Volume 7.5 FL (6.5-10.1) 8.3 FL (6.5-10.1) 8.5 FL (6.5-10.1) Neutrophils (%) (Auto) 73.1 % (45.0-75.0) % (45.0-75.0) 63.0 % (45.0-75.0) Lymphocytes (%) (Auto) 23.0 % (20.0-45.0) % (20.0-45.0) 31.1 % (20.0-45.0) Monocytes (%) (Auto) 3.1 % (1.0-10.0) % (1.0-10.0) 4.4 % (1.0-10.0) Eosinophils (%) (Auto) 0.5 % (0.0-3.0) % (0.0-3.0) 0.7 % (0.0-3.0) Basophils (%) (Auto) 0.4 % (0.0-2.0) % (0.0-2.0) 0.7 % (0.0-2.0) Prothrombin Time 10.8 SEC (9.30-11.50) Prothromb Time International Ratio 1.0 (0.9-1.1) Activated Partial Thromboplast Time 19 SEC (23-33) Urine Color Pale yellow Urine Appearance Cloudy Urine pH 8 (4.5-8.0) Urine Specific [place] 1.010 (1.005-1.035) Urine Protein 3+ (NEGATIVE) Urine Glucose (UA) 4+ (NEGATIVE) Urine Ketones Negative (NEGATIVE) Urine Blood 3+ (NEGATIVE) Urine Nitrite Negative (NEGATIVE) Urine Bilirubin Negative (NEGATIVE) Urine Urobilinogen Normal MG/DL (0.0-1.0) Urine Leukocyte Esterase 3+ (NEGATIVE) Urine RBC 10-15 /HPF (0 - 2) Urine WBC Tntc /HPF (0 - 2) Urine Squamous Epithelial Cells Few /LPF (NONE/OCC) Urine Bacteria Few /HPF (NONE) Sodium Level 163 MMOL/L (136-145) 169 MMOL/L (136-145) Potassium Level 6.1 MMOL/L (3.5-5.1) 3.0 MMOL/L (3.5-5.1) Chloride Level 125 MMOL/L (98-107) 131 MMOL/L (98-107) Carbon Dioxide Level 35 MMOL/L (21-32) 31 MMOL/L (21-32) Anion Gap 4 mmol/L (5-15) 5 mmol/L (5-15) Blood Urea Nitrogen 119 mg/dL (7-18) 100 mg/dL (7-18) Creatinine 2.2 MG/DL (0.55-1.30) 1.4 MG/DL (0.55-1.30) Estimat Glomerular Filtration Rate mL/min (>60) mL/min (>60) Glucose Level 918 MG/DL (74-106) 130 MG/DL (74-106) Calcium Level 10.5 MG/DL (8.5-10.1) 8.9 MG/DL (8.5-10.1) Total Bilirubin 0.3 MG/DL (0.2-1.0) 0.2 MG/DL (0.2-1.0) Aspartate Amino Transf (AST/SGOT) 18 U/L (15-37) 17 U/L (15-37) Alanine Aminotransferase (ALT/SGPT) 12 U/L (12-78) 10 U/L (12-78) Alkaline Phosphatase 181 U/L (46-116) 91 U/L (46-116) Total Creatine Kinase 210 U/L (26-308) 164 U/L (26-308) Creatine Kinase MB 1.3 NG/ML (0.0-3.6) Creatine Kinase MB Relative Index 0.6 Troponin I 0.000 ng/mL (0.000-0.056) 0.000 ng/mL (0.000-0.056) Pro-B-Type Natriuretic Peptide 670 pg/mL (0-125) 612 pg/mL (0-125) Total Protein 10.1 G/DL (6.4-8.2) 7.9 G/DL (6.4-8.2) Albumin 2.0 G/DL (3.4-5.0) 1.5 G/DL (3.4-5.0) Globulin 8.1 g/dL 6.4 g/dL Albumin/Globulin Ratio 0.2 (1.0-2.7) 0.2 (1.0-2.7) Lipase 522 U/L (73-393) 217 U/L (73-393) Arterial Blood pH 7.369 (7.350-7.450) Arterial Blood Partial Pressure CO2 56.1 mmHg (35.0-45.0) Arterial Blood Partial Pressure O2 66.8 mmHg (75.0-100.0) Arterial Blood HCO3 31.6 mmol/L (22.0-26.0) Arterial Blood Oxygen Saturation 91.5 % (95-100) Arterial Blood Base Excess 5.3 (-2-2) Brock Test Positive Differential Total Cells Counted 100 Neutrophils % (Manual) 70 % (45-75) Lymphocytes % (Manual) 25 % (20-45) Monocytes % (Manual) 2 % (1-10) Eosinophils % (Manual) 3 % (0-3) Basophils % (Manual) 0 % (0-2) Band Neutrophils 0 % (0-8) Platelet Estimate Adequate Platelet Morphology Normal Hypochromasia 1+ Anisocytosis 1+ Hemoglobin A1c 10.1 % (4.3-6.0) Uric Acid 6.0 MG/DL (2.6-7.2) Phosphorus Level 2.6 MG/DL (2.5-4.9) Magnesium Level 2.0 MG/DL (1.8-2.4) Iron Level 14 ug/dL (50-175) Total Iron Binding Capacity 132 ug/dL (250-450) Percent Iron Saturation 11 % (15-50) Unsaturated Iron Binding 118 ug/dL (112-346) Ferritin 619 NG/ML (8-388) Gamma Glutamyl Transpeptidase 47 U/L (5-85) Ammonia 19 umol/L (11-32) C-Reactive Protein, Quantitative 33.7 mg/dL (0.00-0.90) Triglycerides Level 85 MG/DL (30-150) Cholesterol Level 114 MG/DL (< 200) LDL Cholesterol 61 mg/dL (<100) HDL Cholesterol 47 MG/DL (40-60) Cholesterol/HDL Ratio 2.4 (3.3-4.4) Vitamin B12 Level 1526 PG/ML (193-986) Folate 81.1 NG/ML (8.6-58.9) Thyroid Stimulating Hormone (TSH) 0.697 uiU/mL (0.358-3.740) Random Vancomycin Level 16.9 ug/mL Acetone Level Negative (NEGATIVE) Test 02/20/19 03:35 02/20/19 07:15 02/21/19 04:00 Sodium Level 165 MMOL/L (136-145) 154 MMOL/L (136-145) Potassium Level 3.4 MMOL/L (3.5-5.1) 3.5 MMOL/L (3.5-5.1) Chloride Level 130 MMOL/L (98-107) 123 MMOL/L (98-107) Carbon Dioxide Level 27 MMOL/L (21-32) 26 MMOL/L (21-32) Anion Gap 8 mmol/L (5-15) 5 mmol/L (5-15) Blood Urea Nitrogen 69 mg/dL (7-18) 39 mg/dL (7-18) Creatinine 1.2 MG/DL (0.55-1.30) 1.2 MG/DL (0.55-1.30) Estimat Glomerular Filtration Rate mL/min (>60) mL/min (>60) Glucose Level 238 MG/DL (74-106) 116 MG/DL (74-106) Uric Acid 5.6 MG/DL (2.6-7.2) Calcium Level 8.0 MG/DL (8.5-10.1) 7.4 MG/DL (8.5-10.1) Phosphorus Level 2.6 MG/DL (2.5-4.9) 1.6 MG/DL (2.5-4.9) Magnesium Level 1.9 MG/DL (1.8-2.4) 1.5 MG/DL (1.8-2.4) Total Bilirubin 0.3 MG/DL (0.2-1.0) 0.4 MG/DL (0.2-1.0) Aspartate Amino Transf (AST/SGOT) 16 U/L (15-37) 13 U/L (15-37) Alanine Aminotransferase (ALT/SGPT) 9 U/L (12-78) 9 U/L (12-78) Alkaline Phosphatase 73 U/L (46-116) 76 U/L (46-116) C-Reactive Protein, Quantitative 69.4 mg/dL (0.00-0.90) Pro-B-Type Natriuretic Peptide 3788 pg/mL (0-125) Total Protein 6.7 G/DL (6.4-8.2) 6.9 G/DL (6.4-8.2) Albumin 1.8 G/DL (3.4-5.0) 1.6 G/DL (3.4-5.0) Globulin 4.9 g/dL 5.3 g/dL Albumin/Globulin Ratio 0.4 (1.0-2.7) 0.3 (1.0-2.7) White Blood Count 10.6 K/UL (4.8-10.8) 8.6 K/UL (4.8-10.8) Red Blood Count 2.75 M/UL (4.20-5.40) 2.85 M/UL (4.20-5.40) Hemoglobin 7.3 G/DL (12.0-16.0) 7.7 G/DL (12.0-16.0) Hematocrit 25.1 % (37.0-47.0) 25.4 % (37.0-47.0) Mean Corpuscular Volume 91 FL (80-99) 89 FL (80-99) Mean Corpuscular Hemoglobin 26.5 PG (27.0-31.0) 27.2 PG (27.0-31.0) Mean Corpuscular Hemoglobin Concent 29.0 G/DL (32.0-36.0) 30.5 G/DL (32.0-36.0) Red Cell Distribution Width 17.7 % (11.6-14.8) 16.5 % (11.6-14.8) Platelet Count 189 K/UL (150-450) 162 K/UL (150-450) Mean Platelet Volume 8.7 FL (6.5-10.1) 8.8 FL (6.5-10.1) Neutrophils (%) (Auto) % (45.0-75.0) % (45.0-75.0) Lymphocytes (%) (Auto) % (20.0-45.0) % (20.0-45.0) Monocytes (%) (Auto) % (1.0-10.0) % (1.0-10.0) Eosinophils (%) (Auto) % (0.0-3.0) % (0.0-3.0) Basophils (%) (Auto) % (0.0-2.0) % (0.0-2.0) Differential Total Cells Counted 100 Neutrophils % (Manual) 65 % (45-75) Lymphocytes % (Manual) 26 % (20-45) Monocytes % (Manual) 2 % (1-10) Eosinophils % (Manual) 2 % (0-3) Basophils % (Manual) 0 % (0-2) Band Neutrophils 5 % (0-8) Platelet Estimate Adequate Platelet Morphology Normal Hypochromasia 1+ Anisocytosis 1+ Height (Feet): 5 Height (Inches): 7.00 Weight (Pounds): 151 Objective General Appearance: severe distress, lethargic, Chronically Ill Head: normocephalic, atraumatic Eyes: bilateral eye PERRL, bilateral eye EOMI ENT: dry mucus membranes Neck: full range of motion, supple, no meningismus Respiratory: chest non-tender, respiratory distress, rhonchi. CPAP+ Cardiovascular: regular rate, rhythm, no murmur, tachycardia Gastrointestinal: normal bowel sounds, non tender- Reducible abdominal wall hernia. COLOSTOMY+, GT++ Rectal: other - large sacral Stage 4 ulcer Tobin Stover MD Feb 21, 2019 10:27
--- NOTE | 2019-02-21 11:02 | Nephrology Progress Note ---
Assessment/Plan Problem List: (1) Renal failure (ARF), acute on chronic (2) Hypotension (3) Anemia (4) Colostomy status (5) PEG (percutaneous endoscopic gastrostomy) status (6) Electrolyte imbalance Assessment Acute renal failure ? Underlying CKD Severe Dehydration Hyperglycemia- DM OOC A1c High Severe underlying Anemia Electrolyte imbalance UTI PEG Colostomy Severe HypoAlbuminemia Plan Plan; K and Phos and Mag supplement as needed D5W Hydrate Glucose check Albumin bolus as needed K mag Phos supplement as needed monitor lytes, and H&H Per orders Subjective ROS Limited/Unobtainable: No Constitutional: Reports: malaise Objective Objective Last 24 Hour Vital Signs Date Time Temp Pulse Resp B/P (MAP) Pulse Ox O2 Delivery O2 Flow Rate FiO2 02/21/19 08:00 70 02/21/19 08:00 98.1 68 20 104/65 (78) 100 02/21/19 08:00 Nasal Cannula 2.0 02/21/19 07:27 100 Nasal Cannula 2.0 28 02/21/19 07:27 66 18 100 Nasal Cannula 2.0 28 02/21/19 07:27 Nasal Cannula 02/21/19 04:00 Nasal Cannula 2.0 02/21/19 04:00 98.1 72 20 119/76 (90) 100 02/21/19 04:00 73 02/21/19 02:34 Nasal Cannula 02/21/19 02:33 Nasal Cannula 02/21/19 00:00 Nasal Cannula 2.0 02/21/19 00:00 97.2 71 18 119/50 (73) 100 02/20/19 23:33 67 02/20/19 23:11 Nasal Cannula 02/20/19 23:08 73 18 97 Nasal Cannula 2.0 28 02/20/19 20:00 Nasal Cannula 2.0 02/20/19 20:00 97.9 75 18 121/47 (71) 99 02/20/19 19:42 Nasal Cannula 02/20/19 19:40 54 18 97 Nasal Cannula 2.0 28 02/20/19 19:39 97 Nasal Cannula 2.0 28 02/20/19 19:17 77 02/20/19 19:00 75 20 109/41 (63) 100 02/20/19 18:00 76 20 108/39 (62) 100 02/20/19 17:00 74 20 110/39 (62) 100 02/20/19 16:00 Nasal Cannula 2.0 02/20/19 16:00 76 02/20/19 16:00 97.5 85 16 108/43 (64) 100 02/20/19 15:34 66 16 100 Nasal Cannula 2.0 28 02/20/19 15:24 63 20 100 Nasal Cannula 2.0 28 02/20/19 14:00 69 16 106/38 (60) 100 02/20/19 13:00 97.8 73 19 113/50 (71) 100 02/20/19 12:00 Nasal Cannula 2.0 02/20/19 12:00 77 19 96/41 (59) 100 02/20/19 11:26 86 Intake and Output 02/20/19 02/21/19 19:00 07:00 Intake Total 1500 ml 1155 ml Output Total 1010 ml 475 ml Balance 490 ml 680 ml Intake Oral 0 ml Free Water 0 ml IV Total 1250 ml 1155 ml Blood Product 250 ml Output Urine Total 980 ml 425 ml Stool Total 30 ml 50 ml Laboratory Tests 02/21/19 04:00: White Blood Count 8.6, Red Blood Count 2.85L, Hemoglobin 7.7L, Hematocrit 25.4L , Mean Corpuscular Volume 89, Mean Corpuscular Hemoglobin 27.2, Mean Corpuscular Hemoglobin Concent 30.5L, Red Cell Distribution Width 16.5H, Platelet Count 162, Mean Platelet Volume 8.8, Neutrophils (%) (Auto) , Lymphocytes (%) (Auto) , Monocytes (%) (Auto) , Eosinophils (%) (Auto) , Basophils (%) (Auto) , Sodium Level 154H, Potassium Level 3.5, Chloride Level 123H, Carbon Dioxide Level 26, Anion Gap 5, Blood Urea Nitrogen 39H, Creatinine 1.2, Estimat Glomerular Filtration Rate , Glucose Level 116#H, Calcium Level 7.4L, Phosphorus Level 1.6L, Magnesium Level 1.5L, Total Bilirubin 0.4, Aspartate Amino Transf (AST/SGOT) 13L, Alanine Aminotransferase (ALT/SGPT) 9L, Alkaline Phosphatase 76, Total Protein 6.9, Albumin 1.6L, Globulin 5.3, Albumin/ Globulin Ratio 0.3L Height (Feet): 5 Height (Inches): 7.00 Weight (Pounds): 151 General Appearance: no apparent distress Cardiovascular: normal rate Respiratory/Chest: decreased breath sounds Abdomen: soft, other - PEG and Colostomy Servando Cifuentes MD Feb 21, 2019 11:02
[2019-02-21 12:00] VITALS: BP 131/61
[2019-02-21] MEDS ORDERED: Potassium Phosphate 30 MM in NS 275 ML IV ONE (12:00)
--- NOTE | 2019-02-21 13:15 | Infectious Diseases Prog Note ---
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 RECOMMENDATION: We will continue with cefepime We will follow up the cultures . Subjective ROS Limited/Unobtainable: Yes Constitutional: Reports: other - doing better transferred from ICU to step down unit Neurologic: Reports: other - more responsive Allergies: Coded Allergies: ALLOPURINOL (Verified Allergy, Unknown, 12/20/18) Objective Vital Signs Last 24 Hour Vital Signs Date Time Temp Pulse Resp B/P (MAP) Pulse Ox O2 Delivery O2 Flow Rate FiO2 02/21/19 12:00 Nasal Cannula 2.0 02/21/19 12:00 98.2 75 18 131/61 (84) 100 02/21/19 12:00 73 02/21/19 11:20 Nasal Cannula 2.0 28 02/21/19 11:20 Nasal Cannula 02/21/19 08:00 70 02/21/19 08:00 98.1 68 20 104/65 (78) 100 02/21/19 08:00 Nasal Cannula 2.0 02/21/19 07:27 100 Nasal Cannula 2.0 28 02/21/19 07:27 66 18 100 Nasal Cannula 2.0 28 02/21/19 07:27 Nasal Cannula 02/21/19 04:00 Nasal Cannula 2.0 02/21/19 04:00 98.1 72 20 119/76 (90) 100 02/21/19 04:00 73 02/21/19 02:34 Nasal Cannula 02/21/19 02:33 Nasal Cannula 02/21/19 00:00 Nasal Cannula 2.0 02/21/19 00:00 97.2 71 18 119/50 (73) 100 02/20/19 23:33 67 02/20/19 23:11 Nasal Cannula 02/20/19 23:08 73 18 97 Nasal Cannula 2.0 28 02/20/19 20:00 Nasal Cannula 2.0 02/20/19 20:00 97.9 75 18 121/47 (71) 99 02/20/19 19:42 Nasal Cannula 02/20/19 19:40 54 18 97 Nasal Cannula 2.0 28 02/20/19 19:39 97 Nasal Cannula 2.0 28 02/20/19 19:17 77 02/20/19 19:00 75 20 109/41 (63) 100 02/20/19 18:00 76 20 108/39 (62) 100 02/20/19 17:00 74 20 110/39 (62) 100 02/20/19 16:00 Nasal Cannula 2.0 02/20/19 16:00 76 02/20/19 16:00 97.5 85 16 108/43 (64) 100 02/20/19 15:34 66 16 100 Nasal Cannula 2.0 28 02/20/19 15:24 63 20 100 Nasal Cannula 2.0 28 02/20/19 14:00 69 16 106/38 (60) 100 Height (Feet): 5 Height (Inches): 7.00 Weight (Pounds): 151 General Appearance: no acute distress HEENT: mucous membranes moist Respiratory/Chest: lungs clear Cardiovascular: normal rate, other - Femoral line Abdomen: soft, non tender, other - s/p GT & colostomy Extremities: no edema Skin: ulcers, other - sacral Neurologic/Psychiatric: responsive Microbiology Date/Time Source Procedure Growth Status 02/18/19 20:45 Sacral Wound Gram Stain - Final Resulted 02/18/19 20:45 Wound Culture - Preliminary Escherichia Coli Gram Negative Bacillus 2 Staphylococcus Aureus Resulted Laboratory Tests Test 02/21/19 04:00 White Blood Count 8.6 K/UL (4.8-10.8) Red Blood Count 2.85 M/UL (4.20-5.40) L Hemoglobin 7.7 G/DL (12.0-16.0) L Hematocrit 25.4 % (37.0-47.0) L Mean Corpuscular Volume 89 FL (80-99) Mean Corpuscular Hemoglobin 27.2 PG (27.0-31.0) Mean Corpuscular Hemoglobin Concent 30.5 G/DL (32.0-36.0) L Red Cell Distribution Width 16.5 % (11.6-14.8) H Platelet Count 162 K/UL (150-450) Mean Platelet Volume 8.8 FL (6.5-10.1) Neutrophils (%) (Auto) % (45.0-75.0) Lymphocytes (%) (Auto) % (20.0-45.0) Monocytes (%) (Auto) % (1.0-10.0) Eosinophils (%) (Auto) % (0.0-3.0) Basophils (%) (Auto) % (0.0-2.0) Sodium Level 154 MMOL/L (136-145) H Potassium Level 3.5 MMOL/L (3.5-5.1) Chloride Level 123 MMOL/L (98-107) H Carbon Dioxide Level 26 MMOL/L (21-32) Anion Gap 5 mmol/L (5-15) Blood Urea Nitrogen 39 mg/dL (7-18) H Creatinine 1.2 MG/DL (0.55-1.30) Estimat Glomerular Filtration Rate mL/min (>60) Glucose Level 116 MG/DL (74-106) #H Calcium Level 7.4 MG/DL (8.5-10.1) L Phosphorus Level 1.6 MG/DL (2.5-4.9) L Magnesium Level 1.5 MG/DL (1.8-2.4) L Total Bilirubin 0.4 MG/DL (0.2-1.0) Aspartate Amino Transf (AST/SGOT) 13 U/L (15-37) L Alanine Aminotransferase (ALT/SGPT) 9 U/L (12-78) L Alkaline Phosphatase 76 U/L (46-116) Total Protein 6.9 G/DL (6.4-8.2) Albumin 1.6 G/DL (3.4-5.0) L Globulin 5.3 g/dL Albumin/Globulin Ratio 0.3 (1.0-2.7) L Current Medications Medications (Trade) Dose Ordered Sig/Nora Route PRN Reason Start Time Stop Time Status Last Admin Dose Admin Albuterol/ Ipratropium (Albuterol/ Ipratropium) 3 ml Q4HRT HHN 02/20/19 19:00 02/23/19 22:59 02/21/19 07:27 Aspirin (Ecotrin) 81 mg DAILY ORAL 02/21/19 09:00 03/21/19 12:29 02/21/19 08:41 Atorvastatin Calcium (Lipitor) 40 mg BEDTIME ORAL 02/20/19 21:00 03/21/19 20:59 02/20/19 20:19 Cefepime HCl 1 gm/ Dextrose 55 ml @ 110 mls/hr Q24H IVPB 02/20/19 20:00 02/25/19 19:59 02/20/19 19:56 Chlorhexidine Gluconate (Valentina-Hex 2%) 1 applic DAILY@2000 TOPIC 02/20/19 20:00 03/21/19 19:59 02/20/19 19:56 Dextrose 1,000 ml @ 75 mls/hr [id number] IV 02/21/19 11:00 03/23/19 10:59 02/21/19 11:37 Dextrose (Dextrose 50%) 25 ml Q30M PRN IV Hypoglycemia 02/20/19 19:30 03/21/19 08:59 Dextrose (Dextrose 50%) 50 ml Q30M PRN IV Hypoglycemia 02/20/19 19:30 03/21/19 08:59 Insulin Aspart (NovoLOG) BEFORE MEALS AND HS SUBQ 02/20/19 21:00 03/21/19 11:29 02/21/19 11:40 Insulin Detemir (Levemir) 6 units BID SUBQ 02/21/19 09:00 03/21/19 08:59 02/21/19 08:44 Iron Sucrose 100 mg/Sodium Chloride 55 ml @ 200 mls/hr BEDTIME IV 02/21/19 21:00 02/25/19 21:17 Magnesium Sulfate 100 ml @ 100 mls/hr Q1H IVPB 02/21/19 12:00 02/21/19 15:59 02/21/19 12:28 Pantoprazole (Protonix) 40 mg EVERY 12 HOURS IVP 02/20/19 21:00 03/22/19 10:29 02/21/19 08:41 Potassium Phosphate 30 mm/ Sodium Chloride 285 ml @ 47.5 mls/hr ONCE ONCE IV 02/21/19 12:00 02/21/19 17:59 02/21/19 12:28 Roland Navarro MD Feb 21, 2019 13:15
--- NOTE | 2019-02-21 13:37 | Surgery Progress Note ---
Surgery Progress Note Subjective Additional Comments no acute events comfortable labs stable exam unchanged. Objective Last 24 Hour Vital Signs Date Time Temp Pulse Resp B/P (MAP) Pulse Ox O2 Delivery O2 Flow Rate FiO2 02/21/19 12:00 Nasal Cannula 2.0 02/21/19 12:00 98.2 75 18 131/61 (84) 100 02/21/19 12:00 73 02/21/19 11:20 Nasal Cannula 2.0 28 02/21/19 11:20 Nasal Cannula 02/21/19 08:00 70 02/21/19 08:00 98.1 68 20 104/65 (78) 100 02/21/19 08:00 Nasal Cannula 2.0 02/21/19 07:27 100 Nasal Cannula 2.0 28 02/21/19 07:27 66 18 100 Nasal Cannula 2.0 28 02/21/19 07:27 Nasal Cannula 02/21/19 04:00 Nasal Cannula 2.0 02/21/19 04:00 98.1 72 20 119/76 (90) 100 02/21/19 04:00 73 02/21/19 02:34 Nasal Cannula 02/21/19 02:33 Nasal Cannula 02/21/19 00:00 Nasal Cannula 2.0 02/21/19 00:00 97.2 71 18 119/50 (73) 100 02/20/19 23:33 67 02/20/19 23:11 Nasal Cannula 02/20/19 23:08 73 18 97 Nasal Cannula 2.0 28 02/20/19 20:00 Nasal Cannula 2.0 02/20/19 20:00 97.9 75 18 121/47 (71) 99 02/20/19 19:42 Nasal Cannula 02/20/19 19:40 54 18 97 Nasal Cannula 2.0 28 02/20/19 19:39 97 Nasal Cannula 2.0 28 02/20/19 19:17 77 02/20/19 19:00 75 20 109/41 (63) 100 02/20/19 18:00 76 20 108/39 (62) 100 02/20/19 17:00 74 20 110/39 (62) 100 02/20/19 16:00 Nasal Cannula 2.0 02/20/19 16:00 76 02/20/19 16:00 97.5 85 16 108/43 (64) 100 02/20/19 15:34 66 16 100 Nasal Cannula 2.0 28 02/20/19 15:24 63 20 100 Nasal Cannula 2.0 28 02/20/19 14:00 69 16 106/38 (60) 100 I&O Intake and Output 02/20/19 02/21/19 19:00 07:00 Intake Total 1500 ml 1155 ml Output Total 1010 ml 475 ml Balance 490 ml 680 ml Intake Oral 0 ml Free Water 0 ml IV Total 1250 ml 1155 ml Blood Product 250 ml Output Urine Total 980 ml 425 ml Stool Total 30 ml 50 ml Dressing: other Wound: other Drains: other Cardiovascular: RSR Respiratory: clear Abdomen: soft, non-tender, present bowel sounds Extremities: no cyanosis, other Laboratory Tests Test 02/21/19 04:00 White Blood Count 8.6 K/UL (4.8-10.8) Red Blood Count 2.85 M/UL (4.20-5.40) L Hemoglobin 7.7 G/DL (12.0-16.0) L Hematocrit 25.4 % (37.0-47.0) L Mean Corpuscular Volume 89 FL (80-99) Mean Corpuscular Hemoglobin 27.2 PG (27.0-31.0) Mean Corpuscular Hemoglobin Concent 30.5 G/DL (32.0-36.0) L Red Cell Distribution Width 16.5 % (11.6-14.8) H Platelet Count 162 K/UL (150-450) Mean Platelet Volume 8.8 FL (6.5-10.1) Neutrophils (%) (Auto) % (45.0-75.0) Lymphocytes (%) (Auto) % (20.0-45.0) Monocytes (%) (Auto) % (1.0-10.0) Eosinophils (%) (Auto) % (0.0-3.0) Basophils (%) (Auto) % (0.0-2.0) Sodium Level 154 MMOL/L (136-145) H Potassium Level 3.5 MMOL/L (3.5-5.1) Chloride Level 123 MMOL/L (98-107) H Carbon Dioxide Level 26 MMOL/L (21-32) Anion Gap 5 mmol/L (5-15) Blood Urea Nitrogen 39 mg/dL (7-18) H Creatinine 1.2 MG/DL (0.55-1.30) Estimat Glomerular Filtration Rate mL/min (>60) Glucose Level 116 MG/DL (74-106) #H Calcium Level 7.4 MG/DL (8.5-10.1) L Phosphorus Level 1.6 MG/DL (2.5-4.9) L Magnesium Level 1.5 MG/DL (1.8-2.4) L Total Bilirubin 0.4 MG/DL (0.2-1.0) Aspartate Amino Transf (AST/SGOT) 13 U/L (15-37) L Alanine Aminotransferase (ALT/SGPT) 9 U/L (12-78) L Alkaline Phosphatase 76 U/L (46-116) Total Protein 6.9 G/DL (6.4-8.2) Albumin 1.6 G/DL (3.4-5.0) L Globulin 5.3 g/dL Albumin/Globulin Ratio 0.3 (1.0-2.7) L Plan Problems: (1) Decubitus ulcer of sacral region, stage 4 Assessment & Plan: Pt presented on admission with full thickness stage 4 Sacral Pressure Injury with undermining. Bone is palpable. Base of has beefy red granulation with scattered small purple areas. No odor noted .Scant serous exudate noted . Edges pink and flat with some sloth. DTPI noted to lateral R foot. .Base of wound purple and fluctuant in center with surrounding maroon discoloration Non-blanchable erythema with fluctuance noted to posterior and medial R heel. L heel boggy but blanchable. Tx.Plan: Cleanse Sacral wound with Saline. Loosely pack with Hydrogel Impregnated Kerlix. Cover with ABD pads and secure with Paper Tape or Tegaderm Daily and prn. Apply Cavilon Skin Barrier to R and Heel and lateral R heel. Ciover with Optifoam drsg. Change every 7 days and PRN. Apply Cavilon Skin Barrier to L heel. Cover with Optifoam drsg. Change every 7 days and prn. APM/VIJI Mattress Overlay. Reposition at least every 2hours or as tolerated. Off-load heels with Pillow. (2) Sepsis Assessment & Plan: tachycardia, leukocytosis, anemia, abnormal labs, altered status wound evaluate and tho not as optimal as prior unlikely etiology of infection IV abx as per ID care orders as below trend labs will follow with recs thank you Mauro Morrow Feb 21, 2019 13:37
[2019-02-21 16:00] VITALS: BP 114/60
[2019-02-21] MEDS: Cefepime HCl 1 GM in NS 55 ML IVPB SCH (17:25)
--- NOTE | 2019-02-21 17:25 | Pulmonolgy Critical Care Note ---
Critical Care - Asmt/Plan Assessment/Plan: Pulmonary CCM Progress Note HPI Patient is an 83 year old woman from [facility], history of Diabetes, admitted with alteration in mental status, very high glucose readings Noted to have a UTI - gas bubbles at the periphery of the dome of the bladder are concerning for intramural gas consistent with emphysematous cystitis, on antiibiotics per ID No reports of vomiting or diarrhea Unknown regarding any fall or trauma Hypernatremia improving Allergies: ALLOPURINOL Past Medical History: Diabetes, Hypertension, Chronic Obstructive Pulmonary Disease, Dyphagia, s/p Gastrostomy Tube, Anemia, Previous CVA, previous colostomy All Other Systems: limited Physical Exam Vital Signs Noted Date Time Temp Pulse Resp B/P (MAP) Pulse Ox O2 Delivery O2 Flow Rate FiO2 02/18/19 12:08 98.1 101 24 101/82 (88) 98 Room Air General Appearance: Chronically ill appearing, altered mental status, no response to verbal command,moans with physical stimuli Head: normocephalic, atraumatic Eyes: bilateral eye PERRL ENT: no angioedema, dry mucus membranes Neck: supple, no LN Respiratory: no respiratory distress, crackles - bilaterally Cardiovascular: tachycardia, HS1, HS2, normal, RRR Gastrointestinal: non tender, soft, other - Colostomy bag noted Musculoskeletal: oupper extremity localizes towards physical stimuli, Neurologic: Significantly decreased GCS patient makes moaning sound to physical stimuli is somewhat purposeful with her upper extremity, otherwise nonverbal does not follow commands Skin: no rash, no edema Impression Severe Hyperglycemia Severe Dehydration Urinary Tract Infection Sepsis Previous Diabetes Hypertension Chronic Obstructive Pulmonary Disease Dysphagia, s/p Gastrostomy Tube Anemia Previous CVA Plan - IV Antibiotics per ID - Blood/Urine cultures - Insulin SS - IV fluids PRN - Monitor labs - Pressors PRN - HHN - O2 PRN - [employer] meds - PPX Labs Test 02/18/19 12:50 White Blood Count 12.1 K/UL (4.8-10.8) Red Blood Count 3.84 M/UL (4.20-5.40) Hemoglobin 10.3 G/DL (12.0-16.0) Hematocrit 36.4 % (37.0-47.0) Mean Corpuscular Volume 95 FL (80-99) Mean Corpuscular Hemoglobin 26.7 PG (27.0-31.0) Mean Corpuscular Hemoglobin Concent 28.2 G/DL (32.0-36.0) Red Cell Distribution Width 18.2 % (11.6-14.8) Platelet Count 339 K/UL (150-450) Mean Platelet Volume 7.5 FL (6.5-10.1) Neutrophils (%) (Auto) 73.1 % (45.0-75.0) Lymphocytes (%) (Auto) 23.0 % (20.0-45.0) Monocytes (%) (Auto) 3.1 % (1.0-10.0) Eosinophils (%) (Auto) 0.5 % (0.0-3.0) Basophils (%) (Auto) 0.4 % (0.0-2.0) Prothrombin Time 10.8 SEC (9.30-11.50) Prothromb Time International Ratio 1.0 (0.9-1.1) Activated Partial Thromboplast Time 19 SEC (23-33) Urine Color Pale yellow Urine Appearance Cloudy Urine pH 8 (4.5-8.0) Urine Specific Chrisney 1.010 (1.005-1.035) Urine Protein 3+ (NEGATIVE) Urine Glucose (UA) 4+ (NEGATIVE) Urine Ketones Negative (NEGATIVE) Urine Blood 3+ (NEGATIVE) Urine Nitrite Negative (NEGATIVE) Urine Bilirubin Negative (NEGATIVE) Urine Urobilinogen Normal MG/DL (0.0-1.0) Urine Leukocyte Esterase 3+ (NEGATIVE) Urine RBC 10-15 /HPF (0 - 2) Urine WBC Tntc /HPF (0 - 2) Urine Squamous Epithelial Cells Few /LPF (NONE/OCC) Urine Bacteria Few /HPF (NONE) Sodium Level 163 MMOL/L (136-145) Potassium Level 6.1 MMOL/L (3.5-5.1) Chloride Level 125 MMOL/L (98-107) Carbon Dioxide Level 35 MMOL/L (21-32) Anion Gap 4 mmol/L (5-15) Blood Urea Nitrogen 119 mg/dL (7-18) Creatinine 2.2 MG/DL (0.55-1.30) Estimat Glomerular Filtration Rate mL/min (>60) Glucose Level 918 MG/DL (74-106) Calcium Level 10.5 MG/DL (8.5-10.1) Total Bilirubin 0.3 MG/DL (0.2-1.0) Aspartate Amino Transf (AST/SGOT) 18 U/L (15-37) Alanine Aminotransferase (ALT/SGPT) 12 U/L (12-78) Alkaline Phosphatase 181 U/L (46-116) Total Creatine Kinase 210 U/L (26-308) Creatine Kinase MB 1.3 NG/ML (0.0-3.6) Creatine Kinase MB Relative Index 0.6 Troponin I 0.000 ng/mL (0.000-0.056) Pro-B-Type Natriuretic Peptide 670 pg/mL (0-125) Total Protein 10.1 G/DL (6.4-8.2) Albumin 2.0 G/DL (3.4-5.0) Globulin 8.1 g/dL Albumin/Globulin Ratio 0.2 (1.0-2.7) Lipase 522 U/L (73-393) Microbiology Date/Time Source Procedure Growth Status 02/18/19 12:50 Blood Blood Culture - Preliminary NO GROWTH AFTER 24 HOURS Resulted 02/18/19 12:35 Blood Blood Culture - Preliminary NO GROWTH AFTER 24 HOURS Resulted 02/18/19 12:50 Urine,Clean Catch Urine Culture - Preliminary Morganella Morg Spp Morganii Resulted 02/18/19 20:45 Sacral Wound Gram Stain - Final Resulted 02/18/19 20:45 Wound Culture - Preliminary Gram Negative Bacillus 1 Resulted Laboratory Tests Test 02/20/19 03:35 02/20/19 07:15 Sodium Level 165 MMOL/L (136-145) *H Potassium Level 3.4 MMOL/L (3.5-5.1) L Chloride Level 130 MMOL/L (98-107) H Carbon Dioxide Level 27 MMOL/L (21-32) Anion Gap 8 mmol/L (5-15) Blood Urea Nitrogen 69 mg/dL (7-18) H Creatinine 1.2 MG/DL (0.55-1.30) Estimat Glomerular Filtration Rate mL/min (>60) Glucose Level 238 MG/DL (74-106) #H Uric Acid 5.6 MG/DL (2.6-7.2) Calcium Level 8.0 MG/DL (8.5-10.1) L Phosphorus Level 2.6 MG/DL (2.5-4.9) Magnesium Level 1.9 MG/DL (1.8-2.4) Total Bilirubin 0.3 MG/DL (0.2-1.0) Aspartate Amino Transf (AST/SGOT) 16 U/L (15-37) Alanine Aminotransferase (ALT/SGPT) 9 U/L (12-78) L Alkaline Phosphatase 73 U/L (46-116) C-Reactive Protein, Quantitative 69.4 mg/dL (0.00-0.90) H Pro-B-Type Natriuretic Peptide 3788 pg/mL (0-125) H Total Protein 6.7 G/DL (6.4-8.2) Albumin 1.8 G/DL (3.4-5.0) L Globulin 4.9 g/dL Albumin/Globulin Ratio 0.4 (1.0-2.7) L White Blood Count 10.6 K/UL (4.8-10.8) Red Blood Count 2.75 M/UL (4.20-5.40) L Hemoglobin 7.3 G/DL (12.0-16.0) L Hematocrit 25.1 % (37.0-47.0) L Mean Corpuscular Volume 91 FL (80-99) Mean Corpuscular Hemoglobin 26.5 PG (27.0-31.0) L Mean Corpuscular Hemoglobin Concent 29.0 G/DL (32.0-36.0) L Red Cell Distribution Width 17.7 % (11.6-14.8) H Platelet Count 189 K/UL (150-450) Mean Platelet Volume 8.7 FL (6.5-10.1) Neutrophils (%) (Auto) % (45.0-75.0) Lymphocytes (%) (Auto) % (20.0-45.0) Monocytes (%) (Auto) % (1.0-10.0) Eosinophils (%) (Auto) % (0.0-3.0) Basophils (%) (Auto) % (0.0-2.0) Differential Total Cells Counted 100 Neutrophils % (Manual) 65 % (45-75) Lymphocytes % (Manual) 26 % (20-45) Monocytes % (Manual) 2 % (1-10) Eosinophils % (Manual) 2 % (0-3) Basophils % (Manual) 0 % (0-2) Band Neutrophils 5 % (0-8) Platelet Estimate Adequate Platelet Morphology Normal Hypochromasia 1+ Anisocytosis 1+ Current Medications Medications (Trade) Dose Ordered Sig/Nora Route PRN Reason Start Time Stop Time Status Last Admin Dose Admin Albuterol/ Ipratropium (Albuterol/ Ipratropium) 3 ml Q4HRT HHN 02/18/19 23:00 02/23/19 22:59 02/20/19 10:51 Aspirin (Ecotrin) 81 mg DAILY ORAL 02/19/19 12:30 03/21/19 12:29 02/20/19 09:20 Atorvastatin Calcium (Lipitor) 40 mg BEDTIME ORAL 02/19/19 21:00 03/21/19 20:59 02/19/19 20:22 Cefepime HCl 1 gm/ Dextrose 55 ml @ 110 mls/hr Q24H IVPB 02/19/19 20:00 02/25/19 19:59 02/19/19 20:21 Chlorhexidine Gluconate (Valentina-Hex 2%) 1 applic DAILY@2000 TOPIC 02/19/19 20:00 03/21/19 19:59 02/19/19 20:21 Dextrose 1,000 ml @ 100 mls/hr Q10H IV 02/19/19 07:09 03/21/19 07:08 02/20/19 03:18 Dextrose (Dextrose 50%) 25 ml Q30M PRN IV Hypoglycemia 02/19/19 09:00 03/21/19 08:59 Dextrose (Dextrose 50%) 50 ml Q30M PRN IV Hypoglycemia 02/19/19 09:00 03/21/19 08:59 Insulin Aspart (NovoLOG) BEFORE MEALS AND HS SUBQ 02/19/19 11:30 03/21/19 11:29 02/20/19 06:54 Insulin Detemir (Levemir) 6 units BID SUBQ 02/19/19 09:00 03/21/19 08:59 02/20/19 09:21 Norepinephrine Bitartrate 4 mg/ Dextrose 250 ml @ 0 mls/hr Q24H IV 02/18/19 21:30 03/20/19 21:29 Pantoprazole (Protonix) 40 mg EVERY 12 HOURS IVP 02/20/19 10:30 03/22/19 10:29 Potassium Chloride 100 ml @ 50 mls/hr Q2H IVPB 02/20/19 11:00 02/20/19 14:59 Vancomycin HCl (Vanco rx to dose) 1 ea DAILY PRN MISC Per rx protocol 02/19/19 09:00 03/20/19 17:14 Vancomycin HCl 750 mg/Sodium Chloride 275 ml @ 183.333 mls/hr Q24H IVPB 02/19/19 18:00 02/24/19 17:59 02/19/19 17:38 CT Abdomen: Marked abnormal bladder, with wall thickening, and extensive stranding of the pericystic fat. Gas within the bladder lumen is presumably related to Agarwal catheter. However, gas bubbles at the periphery of the dome of the bladder are concerning for intramural gas consistent with emphysematous cystitis. Positive for tiny right distal ureteral calculus resulting in moderate right hydronephrosis and hydroureter Bilateral intrarenal calculi Extensive retrosacral/retrococcygeal decubitus changes. Correlate with clinical findings. 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 CXR: Nil acute Critical Care - Objective Last 24 Hour Vital Signs Date Time Temp Pulse Resp B/P (MAP) Pulse Ox O2 Delivery O2 Flow Rate FiO2 02/21/19 16:00 98.4 72 18 114/60 (78) 99 02/21/19 16:00 Nasal Cannula 2.0 02/21/19 15:00 Nasal Cannula 2.0 28 02/21/19 15:00 Nasal Cannula 02/21/19 12:00 Nasal Cannula 2.0 02/21/19 12:00 98.2 75 18 131/61 (84) 100 02/21/19 12:00 73 02/21/19 11:20 Nasal Cannula 2.0 28 02/21/19 11:20 Nasal Cannula 02/21/19 08:00 70 02/21/19 08:00 98.1 68 20 104/65 (78) 100 02/21/19 08:00 Nasal Cannula 2.0 02/21/19 07:27 100 Nasal Cannula 2.0 28 02/21/19 07:27 66 18 100 Nasal Cannula 2.0 28 02/21/19 07:27 Nasal Cannula 02/21/19 04:00 Nasal Cannula 2.0 02/21/19 04:00 98.1 72 20 119/76 (90) 100 02/21/19 04:00 73 02/21/19 02:34 Nasal Cannula 02/21/19 02:33 Nasal Cannula 02/21/19 00:00 Nasal Cannula 2.0 02/21/19 00:00 97.2 71 18 119/50 (73) 100 02/20/19 23:33 67 02/20/19 23:11 Nasal Cannula 02/20/19 23:08 73 18 97 Nasal Cannula 2.0 28 02/20/19 20:00 Nasal Cannula 2.0 02/20/19 20:00 97.9 75 18 121/47 (71) 99 02/20/19 19:42 Nasal Cannula 02/20/19 19:40 54 18 97 Nasal Cannula 2.0 28 02/20/19 19:39 97 Nasal Cannula 2.0 28 02/20/19 19:17 77 02/20/19 19:00 75 20 109/41 (63) 100 02/20/19 18:00 76 20 108/39 (62) 100 Micro: Microbiology Date/Time Source Procedure Growth Status 02/18/19 20:45 Sacral Wound Gram Stain - Final Resulted 02/18/19 20:45 Wound Culture - Preliminary Escherichia Coli Gram Negative Bacillus 2 Staphylococcus Aureus Resulted Accucheck: 151 Critical Care - Subjective ROS Limited/Unobtainable: No FI02: 28 Sputum Amount: None I&O: Intake and Output 02/20/19 02/21/19 19:00 07:00 Intake Total 1500 ml 1155 ml Output Total 1010 ml 475 ml Balance 490 ml 680 ml Intake Oral 0 ml Free Water 0 ml IV Total 1250 ml 1155 ml Blood Product 250 ml Output Urine Total 980 ml 425 ml Stool Total 30 ml 50 ml Minh Dunbar MD Feb 21, 2019 17:25
--- NOTE | 2019-02-21 18:16 | NUR ---
NURSE NOTES: 4gm of Magnesium given as ordered, K PHOS 30mm given as ordered, vital signs stable, continue monitoring.
--- NOTE | 2019-02-21 19:02 | NUR ---
HAND-OFF: Report given to JOE CERVANTES, NO DISTRESS..
--- NOTE | 2019-02-21 19:19 | NUR ---
NURSE NOTES: Report received from HELEN Cowan. Observed pt sleeping in bed. No signs of pain. No acute distress noted at this time. SR with purchasing director. On 2L NC, with no SOB. GT intact and NPO noted. Colostomy intact, no output noted. F/C intact and draining well. R femoral TLC, running D5 at 75cc/hr. Bed in the lowest position. Side rails up x3. Will continue to monitor.
[2019-02-21 20:10] VITALS: BP 115/34
[2019-02-21] MEDS: Dyna-Hex 2% Top Sol 2oz TOPIC SCH (20:22)
[2019-02-21] MEDS: Atorvastatin 20mg tab ORAL SCH (20:23)
--- NOTE | 2019-02-21 20:50 | General Progress Note ---
Assessment/Plan Problem List: (1) Renal failure (ARF), acute on chronic ICD Codes: N17.9 - Acute kidney failure, unspecified; N18.9 - Chronic kidney disease, unspecified SNOMED: 242191548 (2) Altered level of consciousness ICD Codes: R40.4 - Transient alteration of awareness SNOMED: 1009149 (3) Hypotension ICD Codes: I95.9 - Hypotension, unspecified SNOMED: 56145863 (4) Anemia ICD Codes: D64.9 - Anemia, unspecified SNOMED: 620029799 (5) Sepsis ICD Codes: A41.9 - Sepsis, unspecified organism SNOMED: 77503621 (6) Electrolyte imbalance ICD Codes: E87.8 - Other disorders of electrolyte and fluid balance, not elsewhere classified SNOMED: 237998639 Status: stable Assessment/Plan: not dka hypernatremia low mg anemia informed dr ana mitchell of low hb hyperosmolar hyperglycemia off insulin drip afebrile lyte abnormality reviewed chart and labs Subjective ROS Limited/Unobtainable: Yes Allergies: Coded Allergies: ALLOPURINOL (Verified Allergy, Unknown, 12/20/18) Objective Last 24 Hour Vital Signs Date Time Temp Pulse Resp B/P (MAP) Pulse Ox O2 Delivery O2 Flow Rate FiO2 02/21/19 20:10 98.2 68 20 115/34 (61) 100 02/21/19 20:00 69 02/21/19 20:00 Nasal Cannula 2.0 02/21/19 19:56 Nasal Cannula 02/21/19 19:55 67 20 99 Nasal Cannula 2.0 28 02/21/19 19:55 98 Nasal Cannula 2.0 28 02/21/19 16:00 74 02/21/19 16:00 98.4 72 18 114/60 (78) 99 02/21/19 16:00 Nasal Cannula 2.0 02/21/19 15:00 Nasal Cannula 2.0 28 02/21/19 15:00 Nasal Cannula 02/21/19 12:00 Nasal Cannula 2.0 02/21/19 12:00 98.2 75 18 131/61 (84) 100 02/21/19 12:00 73 02/21/19 11:20 Nasal Cannula 2.0 28 02/21/19 11:20 Nasal Cannula 02/21/19 08:00 70 02/21/19 08:00 98.1 68 20 104/65 (78) 100 02/21/19 08:00 Nasal Cannula 2.0 02/21/19 07:27 100 Nasal Cannula 2.0 28 02/21/19 07:27 66 18 100 Nasal Cannula 2.0 28 02/21/19 07:27 Nasal Cannula 02/21/19 04:00 Nasal Cannula 2.0 02/21/19 04:00 98.1 72 20 119/76 (90) 100 02/21/19 04:00 73 02/21/19 02:34 Nasal Cannula 02/21/19 02:33 Nasal Cannula 02/21/19 00:00 Nasal Cannula 2.0 02/21/19 00:00 97.2 71 18 119/50 (73) 100 02/20/19 23:33 67 02/20/19 23:11 Nasal Cannula 02/20/19 23:08 73 18 97 Nasal Cannula 2.0 28 Intake and Output 02/20/19 02/21/19 19:00 07:00 Intake Total 1500 ml 1155 ml Output Total 1010 ml 475 ml Balance 490 ml 680 ml Intake Oral 0 ml Free Water 0 ml IV Total 1250 ml 1155 ml Blood Product 250 ml Output Urine Total 980 ml 425 ml Stool Total 30 ml 50 ml Laboratory Tests 02/21/19 04:00: White Blood Count 8.6, Red Blood Count 2.85L, Hemoglobin 7.7L, Hematocrit 25.4L , Mean Corpuscular Volume 89, Mean Corpuscular Hemoglobin 27.2, Mean Corpuscular Hemoglobin Concent 30.5L, Red Cell Distribution Width 16.5H, Platelet Count 162, Mean Platelet Volume 8.8, Neutrophils (%) (Auto) , Lymphocytes (%) (Auto) , Monocytes (%) (Auto) , Eosinophils (%) (Auto) , Basophils (%) (Auto) , Sodium Level 154H, Potassium Level 3.5, Chloride Level 123H, Carbon Dioxide Level 26, Anion Gap 5, Blood Urea Nitrogen 39H, Creatinine 1.2, Estimat Glomerular Filtration Rate , Glucose Level 116#H, Calcium Level 7.4L, Phosphorus Level 1.6L, Magnesium Level 1.5L, Total Bilirubin 0.4, Aspartate Amino Transf (AST/SGOT) 13L, Alanine Aminotransferase (ALT/SGPT) 9L, Alkaline Phosphatase 76, Total Protein 6.9, Albumin 1.6L, Globulin 5.3, Albumin/ Globulin Ratio 0.3L Height (Feet): 5 Height (Inches): 7.00 Weight (Pounds): 151 General Appearance: lethargic, confused Respiratory/Chest: lungs clear Abdomen: non tender Danial Walden MD Feb 21, 2019 20:50
--- NOTE | 2019-02-21 22:45 | NUR ---
NURSE NOTES: per Dr. Stover order, 1 PRBC started. V/S T98.2, BP 118/58, P 66 noted. Will continue to monitor.
--- NOTE | 2019-02-21 22:58 | NUR ---
NURSE NOTES: 15 min after transfusion, no adverse reaction noted. V/S T 98.4, P 70, BP 122/42 noted. Will continue to monitor.
[2019-02-22] VITALS: BP 109/57
--- NOTE | 2019-02-22 01:29 | NUR ---
NURSE NOTES: post transfusion v/s, T 97.9, P 70, BP 117/74 noted. No acute distress noted. Pt appears calm and comfortable. Will continue to monitor.
[2019-02-22] MEDS: Albuterol/Ipratropium 3ml neb HHN SCH ×6 (03:00→23:00)
[2019-02-22 04:00] VITALS: BP 117/74
[2019-02-22 05:33] LABS: BASOPHILS % (AUTO) 0.4 % (0.0-2.0); HEMATOCRIT 28.3 % (37.0-47.0); HEMOGLOBIN 8.7 G/DL (12.0-16.0); LYMPHOCYTES % (AUTO) 38.2 % (20.0-45.0); MEAN CORPUSCULAR VOLUME 87 FL (80-99); MONOCYTES % (AUTO) 3.1 % (1.0-10.0); NEUTROPHILS % (AUTO) 56.3 % (45.0-75.0); PLATELET COUNT 147 K/UL (150-450); RED BLOOD COUNT 3.23 M/UL (4.20-5.40); WHITE BLOOD COUNT 7.4 K/UL (4.8-10.8)
[2019-02-22] MEDS: NovoLOG Insulin Flexpen SUBQ SCH ×4 (06:08→21:15)
[2019-02-22 06:19] LABS: ALANINE AMINOTRANSFERASE 8 U/L (12-78); ALBUMIN 1.3 G/DL (3.4-5.0); ALKALINE PHOSPHATASE 55 U/L (46-116); ASPARTATE AMINO TRANSFERASE 13 U/L (15-37); BILIRUBIN,DIRECT 0.2 MG/DL (0.0-0.3); BILIRUBIN,TOTAL 0.6 MG/DL (0.2-1.0)
--- NOTE | 2019-02-22 06:25 | General Progress Note ---
Assessment/Plan Problem List: (1) Diabetes mellitus out of control ICD Codes: E11.65 - Type 2 diabetes mellitus with hyperglycemia SNOMED: 84010431, 562969995 (2) Decubitus ulcer of sacral region, stage 4 ICD Codes: L89.154 - Pressure ulcer of sacral region, stage 4 SNOMED: 472988728, 390996717 (3) Sepsis ICD Codes: A41.9 - Sepsis, unspecified organism SNOMED: 37241079 (4) Electrolyte imbalance ICD Codes: E87.8 - Other disorders of electrolyte and fluid balance, not elsewhere classified SNOMED: 991400007 (5) Altered level of consciousness ICD Codes: R40.4 - Transient alteration of awareness SNOMED: 7504422 (6) Renal failure (ARF), acute on chronic ICD Codes: N17.9 - Acute kidney failure, unspecified; N18.9 - Chronic kidney disease, unspecified SNOMED: 465328990 (7) PEG (percutaneous endoscopic gastrostomy) status ICD Codes: Z93.1 - Gastrostomy status SNOMED: 222918144, 223303028 (8) Colostomy status ICD Codes: Z93.3 - Colostomy status SNOMED: 06737732, 224372473, 020249497 Status: stable Assessment/Plan: continue Levemir 6 units bid continue Novolog sliding scale 4 times daily Subjective ROS Limited/Unobtainable: Yes Allergies: Coded Allergies: ALLOPURINOL (Verified Allergy, Unknown, 12/20/18) Subjective events noted glucose values are stable Item Value Date Time Bedside Blood Glucose 157 mg/dl H 02/22/19 0608 Bedside Blood Glucose 142 mg/dl H 02/21/19 2100 Bedside Blood Glucose 151 mg/dl H 02/21/19 1715 Bedside Blood Glucose 155 mg/dl H 02/21/19 1140 Bedside Blood Glucose 144 mg/dl H 02/21/19 0844 Bedside Blood Glucose 144 mg/dl H 02/21/19 0630 Objective Last 24 Hour Vital Signs Date Time Temp Pulse Resp B/P (MAP) Pulse Ox O2 Delivery O2 Flow Rate FiO2 02/22/19 04:00 Nasal Cannula 2.0 02/22/19 04:00 97.9 71 22 117/74 (88) 100 02/22/19 04:00 75 02/22/19 03:15 Nasal Cannula 02/22/19 03:12 Nasal Cannula 2.0 28 02/22/19 00:00 72 02/22/19 00:00 Nasal Cannula 2.0 02/22/19 00:00 98.4 71 20 109/57 (74) 100 02/21/19 23:08 Nasal Cannula 02/21/19 23:08 Nasal Cannula 2.0 28 02/21/19 20:10 98.2 68 20 115/34 (61) 100 02/21/19 20:00 69 02/21/19 20:00 Nasal Cannula 2.0 02/21/19 19:56 Nasal Cannula 02/21/19 19:55 67 20 99 Nasal Cannula 2.0 28 02/21/19 19:55 98 Nasal Cannula 2.0 28 02/21/19 16:00 74 02/21/19 16:00 98.4 72 18 114/60 (78) 99 02/21/19 16:00 Nasal Cannula 2.0 02/21/19 15:00 Nasal Cannula 2.0 28 02/21/19 15:00 Nasal Cannula 02/21/19 12:00 Nasal Cannula 2.0 02/21/19 12:00 98.2 75 18 131/61 (84) 100 02/21/19 12:00 73 02/21/19 11:20 Nasal Cannula 2.0 28 02/21/19 11:20 Nasal Cannula 02/21/19 08:00 70 02/21/19 08:00 98.1 68 20 104/65 (78) 100 02/21/19 08:00 Nasal Cannula 2.0 02/21/19 07:27 100 Nasal Cannula 2.0 28 02/21/19 07:27 66 18 100 Nasal Cannula 2.0 28 02/21/19 07:27 Nasal Cannula Intake and Output 02/21/19 02/22/19 18:59 06:59 Intake Total 205 ml 55 ml Output Total 550 ml Balance -345 ml 55 ml IV Total 205 ml 55 ml Output Urine Total 550 ml Laboratory Tests 02/22/19 04:30: White Blood Count 7.4, Red Blood Count 3.23L, Hemoglobin 8.7L, Hematocrit 28.3L , Mean Corpuscular Volume 87, Mean Corpuscular Hemoglobin 27.0, Mean Corpuscular Hemoglobin Concent 30.9L, Red Cell Distribution Width 16.0H, Platelet Count 147L, Mean Platelet Volume 9.3, Neutrophils (%) (Auto) 56.3, Lymphocytes (%) (Auto) 38.2, Monocytes (%) (Auto) 3.1, Eosinophils (%) (Auto) 2.0, Basophils (%) (Auto) 0.4, Sodium Level [Pending], Potassium Level [Pending] , Chloride Level [Pending], Carbon Dioxide Level [Pending], Blood Urea Nitrogen [Pending], Creatinine [Pending], Estimat Glomerular Filtration Rate [Pending], Glucose Level [Pending], Uric Acid 4.2, Calcium Level [Pending], Phosphorus Level [Pending], Magnesium Level [Pending], Total Bilirubin 0.6, Direct Bilirubin 0.2, Aspartate Amino Transf (AST/SGOT) 13L, Alanine Aminotransferase ( ALT/SGPT) 8L, Alkaline Phosphatase 55, Total Protein 6.2L, Albumin 1.3L Height (Feet): 5 Height (Inches): 7.00 Weight (Pounds): 151 General Appearance: no apparent distress Neck: normal alignment Cardiovascular: normal rate Respiratory/Chest: decreased breath sounds Abdomen: normal bowel sounds Objective Current Medications Medications (Trade) Dose Ordered Sig/Nora Route PRN Reason Start Time Stop Time Status Last Admin Dose Admin Albuterol/ Ipratropium (Albuterol/ Ipratropium) 3 ml Q4HRT HHN 02/20/19 19:00 02/23/19 22:59 02/21/19 07:27 Aspirin (Ecotrin) 81 mg DAILY ORAL 02/21/19 09:00 03/21/19 12:29 02/21/19 08:41 Atorvastatin Calcium (Lipitor) 40 mg BEDTIME ORAL 02/20/19 21:00 03/21/19 20:59 02/21/19 20:23 Cefepime HCl 1 gm/ Sodium Chloride 55 ml @ 110 mls/hr DAILY IVPB 02/21/19 18:00 02/25/19 17:59 02/21/19 17:25 Chlorhexidine Gluconate (Valentina-Hex 2%) 1 applic DAILY@2000 TOPIC 02/20/19 20:00 03/21/19 19:59 02/21/19 20:22 Dextrose 1,000 ml @ 75 mls/hr [id number] IV 02/21/19 11:00 03/23/19 10:59 02/21/19 20:53 Dextrose (Dextrose 50%) 25 ml Q30M PRN IV Hypoglycemia 02/20/19 19:30 03/21/19 08:59 Dextrose (Dextrose 50%) 50 ml Q30M PRN IV Hypoglycemia 02/20/19 19:30 03/21/19 08:59 Insulin Aspart (NovoLOG) BEFORE MEALS AND HS SUBQ 02/20/19 21:00 03/21/19 11:29 02/22/19 06:08 Insulin Detemir (Levemir) 6 units BID SUBQ 02/21/19 09:00 03/21/19 08:59 02/21/19 17:12 Iron Sucrose 100 mg/Sodium Chloride 55 ml @ 200 mls/hr BEDTIME IV 02/21/19 21:00 02/25/19 21:17 02/21/19 20:23 Pantoprazole (Protonix) 40 mg EVERY 12 HOURS IVP 02/20/19 21:00 03/22/19 10:29 02/21/19 20:25 Pablo Day MD Feb 22, 2019 06:25
[2019-02-22 06:37] LABS: ANION GAP 12 mmol/L (5-15); BLOOD UREA NITROGEN 20 mg/dL (7-18); CARBON DIOXIDE 19 MMOL/L (21-32); CHLORIDE 119 MMOL/L (98-107); PHOSPHORUS 2.8 MG/DL (2.5-4.9); POTASSIUM 3.3 MMOL/L (3.5-5.1); SODIUM 150 MMOL/L (136-145)
--- NOTE | 2019-02-22 07:30 | NUR ---
HAND-OFF: Report given to HELEN Adams.
--- NOTE | 2019-02-22 07:36 | NUR ---
NURSE NOTES: Received bedside report from Bal RN. Pt. in bed, sleeping but arousable. No sign of distress. No grimacing noted. Colostomy at left lower quadrant in placed intact. Right femoral TLC in placed patent/intact running D5W at 75cc/hr. Tolerating well. Bed in low position, locked. Call light within reach. Will cont. to monitor.
[2019-02-22 08:00] VITALS: BP 149/63
--- NOTE | 2019-02-22 08:50 | GI Progress Note ---
Assessment/Plan Problems: (1) Electrolyte imbalance ICD Codes: E87.8 - Other disorders of electrolyte and fluid balance, not elsewhere classified SNOMED: 725534384 (2) Sepsis ICD Codes: A41.9 - Sepsis, unspecified organism SNOMED: 45092100 (3) Decubitus ulcer of sacral region, stage 4 ICD Codes: L89.154 - Pressure ulcer of sacral region, stage 4 SNOMED: 297431670, 364051803 (4) Altered level of consciousness ICD Codes: R40.4 - Transient alteration of awareness SNOMED: 0889899 (5) Renal failure (ARF), acute on chronic ICD Codes: N17.9 - Acute kidney failure, unspecified; N18.9 - Chronic kidney disease, unspecified SNOMED: 263360037 (6) Hypotension ICD Codes: I95.9 - Hypotension, unspecified SNOMED: 96600123 (7) Anemia ICD Codes: D64.9 - Anemia, unspecified SNOMED: 601610112 (8) Colostomy status ICD Codes: Z93.3 - Colostomy status SNOMED: 51661976, 800871825, 755154774 (9) PEG (percutaneous endoscopic gastrostomy) status ICD Codes: Z93.1 - Gastrostomy status SNOMED: 652747967, 228107054 Status: progressing Status Narrative Discussed with Dr. Vora. Assessment/Plan AMS G Tube dependent colostomy dependent hypernatremia no plans for GI procedures at this time, only if emergent start GTFs low rate electrolyte correction anemia work up OB stool r/o GI bleed monitor H&H, prn transfusions bowel regimen ppi hold iron supplementation given elevated ferritin levels GT/colostomy site care fu labs The patient was seen and examined at bedside and all new and available data was reviewed in the patients chart. I agree with the above findings, impression and plan. (Patient seen earlier today. Signature stamp does not reflect patient encounter time.). - Horacio Vora MD Subjective Subjective limited Objective Last 24 Hour Vital Signs Date Time Temp Pulse Resp B/P (MAP) Pulse Ox O2 Delivery O2 Flow Rate FiO2 02/22/19 07:05 Nasal Cannula 2.0 28 02/22/19 07:05 Nasal Cannula 2.0 28 02/22/19 07:05 99 Nasal Cannula 2.0 28 02/22/19 04:00 Nasal Cannula 2.0 02/22/19 04:00 97.9 71 22 117/74 (88) 100 02/22/19 04:00 75 02/22/19 03:15 Nasal Cannula 02/22/19 03:12 Nasal Cannula 2.0 28 02/22/19 00:00 72 02/22/19 00:00 Nasal Cannula 2.0 02/22/19 00:00 98.4 71 20 109/57 (74) 100 02/21/19 23:08 Nasal Cannula 02/21/19 23:08 Nasal Cannula 2.0 28 02/21/19 20:10 98.2 68 20 115/34 (61) 100 02/21/19 20:00 69 02/21/19 20:00 Nasal Cannula 2.0 02/21/19 19:56 Nasal Cannula 02/21/19 19:55 67 20 99 Nasal Cannula 2.0 28 02/21/19 19:55 98 Nasal Cannula 2.0 28 02/21/19 16:00 74 02/21/19 16:00 98.4 72 18 114/60 (78) 99 02/21/19 16:00 Nasal Cannula 2.0 02/21/19 15:00 Nasal Cannula 2.0 28 02/21/19 15:00 Nasal Cannula 02/21/19 12:00 Nasal Cannula 2.0 02/21/19 12:00 98.2 75 18 131/61 (84) 100 02/21/19 12:00 73 02/21/19 11:20 Nasal Cannula 2.0 28 02/21/19 11:20 Nasal Cannula Intake and Output 02/21/19 02/22/19 18:59 06:59 Intake Total 205 ml 730 ml Output Total 550 ml 850 ml Balance -345 ml -120 ml IV Total 205 ml 730 ml Output Urine Total 550 ml 850 ml Laboratory Tests Test 02/22/19 04:30 White Blood Count 7.4 K/UL (4.8-10.8) Red Blood Count 3.23 M/UL (4.20-5.40) L Hemoglobin 8.7 G/DL (12.0-16.0) L Hematocrit 28.3 % (37.0-47.0) L Mean Corpuscular Volume 87 FL (80-99) Mean Corpuscular Hemoglobin 27.0 PG (27.0-31.0) Mean Corpuscular Hemoglobin Concent 30.9 G/DL (32.0-36.0) L Red Cell Distribution Width 16.0 % (11.6-14.8) H Platelet Count 147 K/UL (150-450) L Mean Platelet Volume 9.3 FL (6.5-10.1) Neutrophils (%) (Auto) 56.3 % (45.0-75.0) Lymphocytes (%) (Auto) 38.2 % (20.0-45.0) Monocytes (%) (Auto) 3.1 % (1.0-10.0) Eosinophils (%) (Auto) 2.0 % (0.0-3.0) Basophils (%) (Auto) 0.4 % (0.0-2.0) Sodium Level 150 MMOL/L (136-145) H Potassium Level 3.3 MMOL/L (3.5-5.1) L Chloride Level 119 MMOL/L (98-107) H Carbon Dioxide Level 19 MMOL/L (21-32) L Anion Gap 12 mmol/L (5-15) Blood Urea Nitrogen 20 mg/dL (7-18) H Creatinine 1.0 MG/DL (0.55-1.30) Estimat Glomerular Filtration Rate mL/min (>60) Glucose Level 131 MG/DL (74-106) H Uric Acid 4.2 MG/DL (2.6-7.2) Calcium Level 7.0 MG/DL (8.5-10.1) L Phosphorus Level 2.8 MG/DL (2.5-4.9) Magnesium Level 2.1 MG/DL (1.8-2.4) Total Bilirubin 0.6 MG/DL (0.2-1.0) Direct Bilirubin 0.2 MG/DL (0.0-0.3) Aspartate Amino Transf (AST/SGOT) 13 U/L (15-37) L Alanine Aminotransferase (ALT/SGPT) 8 U/L (12-78) L Alkaline Phosphatase 55 U/L (46-116) Total Protein 6.2 G/DL (6.4-8.2) L Albumin 1.3 G/DL (3.4-5.0) L Height (Feet): 5 Height (Inches): 7.00 Weight (Pounds): 175 General Appearance: no apparent distress Luis Arechiga NP Feb 22, 2019 08:50
[2019-02-22] MEDS: Aspirin EC 81mg tab ORAL SCH (09:16)
[2019-02-22] MEDS: Pantoprazole Inj IVP SCH ×2 (09:16→21:01)
[2019-02-22] MEDS: Cefepime HCl 1 GM in NS 55 ML IVPB SCH (09:17)
[2019-02-22] MEDS: Levemir Flexpen SUBQ SCH ×2 (09:19→18:51)
--- NOTE | 2019-02-22 09:54 | NUR ---
CASE MANAGEMENT: REVIEW 02/22/2019 SI:SEPSIS. HYPEROSMOLAR HYPERGLYCEMIA. T 97.9 HR 64 RR 18 B/P 149/63 SATS 100% ON 2L/NC HGB 8.7 HCT 28.3 NA 150 K 3.3 CL 119 CO2 19 BUN 20 GLU 131 CA 7 AST 13 ALT 8 IS:IVF @ 100 mL/HR PROTONIX IV Q12H LIPITOR PO QHS LEVEMIR SUBQ BID ASA PO QD INSULIN ASPART SUBQ AC/HS CEFEPIME IV Q24H SDU DCP: PATIENT TO BE DISCHARGED TO SNF ONCE MEDICALLY CLEARED. PLAN OF CARE: CONTINUED GLYCEMIC CONTROL AND MENTIONING IVF AND IV ANTIBx TRANSFUSED 1 UNIT 02/21
--- NOTE | 2019-02-22 10:14 | NUR ---
RD ASSESSMENT & RECOMMENDATIONS SEE CARE ACTIVITY FOR COMPLETE ASSESSMENT DAILY ESTIMATED NEEDS: Needs based on Wound, DM 59kg 25-35 kcals/kg 4828-4769 total kcals 1.25-2 g protein/kg 74-118 g total protein 25-30 mL/kg 9922-4574 total fluid mLs NUTRITION DIAGNOSIS: 1) Increased kcal and pro needs r/t wound healing as evidenced by h/o stage 4 sacral wound. 2) Swallowing difficulty r/t dysphagia as evidenced by pt is PEG dep. 3) Altered nutrition related lab values r/t clinical status, dehydration as evidenced by critically elev NA (169-> 150), elev BUN (100-> 20), elev A1C 10.1. ENTERAL NUTRITION RECOMMENDATIONS: Glucerna 1.2 @ 60ml/hr x 24 hrs + Prosource 1pkt QD to provide 1440ml, 1728kcal, 86g + 11g prot, 1159ml free water - As medically able, rec to start GT feeds of Glucerna 1.2 @20ml/hr. - Advance as tolerated 15ml/hr q4-6 hrs to goal - Add Prosource 1pkt daily to better meet protein needs - Flush per , HOB over 30 degrees ADDITIONAL RECOMMENDATIONS: 1) Feed as medically able 2) WOUND CARE: add LORENZO BID + Vit C 250mg BID + ZN SO4 220mg daily x 10 days 3) Maintain calibrated bed scale wts for eval 4) Monitor hydration status closely .
--- NOTE | 2019-02-22 10:22 | Hematology/Onc Progress Note ---
Assessment/Plan Assessment/Plan Assessment and Recs: # Anemia of chronic disease due to underlying chronic medical issues, multifactorial, ferritin 366, tibc 144 --> Anemia workup has been reviewed, rule out gi bleed --> No evidence of hemolysis is noted, peripheral smear has been reviewed. --> Hgb goal >7. Transfuse prn. --> Epogen or iron at this time is not particularly indicated --> Medications have been reviewed --> low threshold for gi evaluation in case has occult + --> Hgb trend:>8.4-->8-->7.3-->7.7-->8.7 --> tolerated 1 unit on 02/22 # Recanalized dvt of the right lower extremity --> given it has healed/recanalized, is not acute okay for just heparin prophylactic dosing --> continue heparin sq bid dosing once hgb >8 # Leukocytosis/elevated white blood cell count, is due to underlying sepsis urine infection+ --> Currently resolved --> ID is following, appreciate recs --> have reviewed peripheral smear and bandemia/neutrophilia noted --> continue antibiotics per ID cefepime/vanc --> monitor for resolution --> trend 17.4-->11.2-->8.3 -->12-->8.6 # Respiratory failure with hypoxia --> Currently on NC 12/28 --> pulm eval --> prior intubation 12/2018 # Sacral decubitus ulcer, stage IV --> per surg, wound care # HCAP (healthcare-associated pneumonia) --> sp abx # ARF (acute renal failure) --> per renal # Hyperglycemia due to type 2 diabetes mellitus --> per endo # Acute metabolic encephalopathy # Severe dehydration # DVT pxx with scds now The timing of this note does not necessarily reflect the time of the patient was seen. Subjective HEENT: Denies: no symptoms, eye pain, blurred vision, tearing, double vision, ear pain, ear discharge, nose pain, nose congestion, throat pain, throat swelling, mouth pain, mouth swelling, other Respiratory: Denies: no symptoms, cough, shortness of breath, SOB with excertion, SOB at rest, sputum, wheezing, other Genitourinary: Denies: no symptoms, burning, discharge, frequency, flank pain, hematuria, incontinence, pain, urgency, other Neurologic/Psychiatric: Denies: no symptoms, anxiety, depressed, emotional problems, headache, numbness, paresthesia, pre-existing deficit, seizure, tingling, tremors, weakness, other Endocrine: Denies: no symptoms, excessive sweating, flushing, intolerance to cold, intolerance to heat, increased hunger, increased thirst, increased urine, unexplained weight gain, unexplained weight loss, other Hematologic/Lymphatic: Denies: no symptoms, anemia, easy bleeding, easy bruising, adenopathy, other Allergies: Coded Allergies: ALLOPURINOL (Verified Allergy, Unknown, 12/20/18) Subjective 02/19: remains in icu, labs reviewed, bs is better today, on abx 02/20: on cefepime and have discontinued vanc, no bleeding noted, hgb reviewed 02/21: on abx, vs stable, denies pain, no distress 02/22: no events, potential dc to snf, pending clearance, gtube dependent Objective Objective Current Medications Medications (Trade) Dose Ordered Sig/Nora Route PRN Reason Start Time Stop Time Status Last Admin Dose Admin Albuterol/ Ipratropium (Albuterol/ Ipratropium) 3 ml Q4HRT HHN 02/20/19 19:00 02/23/19 22:59 02/21/19 07:27 Aspirin (Ecotrin) 81 mg DAILY ORAL 02/21/19 09:00 03/21/19 12:29 02/22/19 09:16 Atorvastatin Calcium (Lipitor) 40 mg BEDTIME ORAL 02/20/19 21:00 03/21/19 20:59 02/21/19 20:23 Cefepime HCl 1 gm/ Sodium Chloride 55 ml @ 110 mls/hr DAILY IVPB 02/21/19 18:00 02/25/19 17:59 02/22/19 09:17 Chlorhexidine Gluconate (Valentina-Hex 2%) 1 applic DAILY@2000 TOPIC 02/20/19 20:00 03/21/19 19:59 02/21/19 20:22 Dextrose 1,000 ml @ 75 mls/hr [id number] IV 02/21/19 11:00 03/23/19 10:59 02/22/19 10:09 Dextrose (Dextrose 50%) 25 ml Q30M PRN IV Hypoglycemia 02/20/19 19:30 03/21/19 08:59 Dextrose (Dextrose 50%) 50 ml Q30M PRN IV Hypoglycemia 02/20/19 19:30 03/21/19 08:59 Insulin Aspart (NovoLOG) BEFORE MEALS AND HS SUBQ 02/20/19 21:00 03/21/19 11:29 02/22/19 06:08 Insulin Detemir (Levemir) 6 units BID SUBQ 02/21/19 09:00 03/21/19 08:59 02/22/19 09:19 Iron Sucrose 100 mg/Sodium Chloride 55 ml @ 200 mls/hr BEDTIME IV 02/21/19 21:00 02/25/19 21:17 02/21/19 20:23 Pantoprazole (Protonix) 40 mg EVERY 12 HOURS IVP 02/20/19 21:00 03/22/19 10:29 02/22/19 09:16 Potassium Chloride 100 ml @ 100 mls/hr Q1HR IVPB 02/22/19 10:00 02/22/19 13:59 02/22/19 10:08 Last 24 Hour Vital Signs Date Time Temp Pulse Resp B/P (MAP) Pulse Ox O2 Delivery O2 Flow Rate FiO2 02/22/19 08:00 97.7 64 18 149/63 (91) 100 02/22/19 07:05 Nasal Cannula 2.0 28 02/22/19 07:05 Nasal Cannula 2.0 28 02/22/19 07:05 99 Nasal Cannula 2.0 28 02/22/19 04:00 Nasal Cannula 2.0 02/22/19 04:00 97.9 71 22 117/74 (88) 100 02/22/19 04:00 75 02/22/19 03:15 Nasal Cannula 02/22/19 03:12 Nasal Cannula 2.0 28 02/22/19 00:00 72 02/22/19 00:00 Nasal Cannula 2.0 02/22/19 00:00 98.4 71 20 109/57 (74) 100 02/21/19 23:08 Nasal Cannula 02/21/19 23:08 Nasal Cannula 2.0 28 02/21/19 20:10 98.2 68 20 115/34 (61) 100 02/21/19 20:00 69 02/21/19 20:00 Nasal Cannula 2.0 02/21/19 19:56 Nasal Cannula 02/21/19 19:55 67 20 99 Nasal Cannula 2.0 28 02/21/19 19:55 98 Nasal Cannula 2.0 28 02/21/19 16:00 74 02/21/19 16:00 98.4 72 18 114/60 (78) 99 02/21/19 16:00 Nasal Cannula 2.0 02/21/19 15:00 Nasal Cannula 2.0 28 02/21/19 15:00 Nasal Cannula 02/21/19 12:00 Nasal Cannula 2.0 02/21/19 12:00 98.2 75 18 131/61 (84) 100 02/21/19 12:00 73 02/21/19 11:20 Nasal Cannula 2.0 28 02/21/19 11:20 Nasal Cannula 02/21/19 08:00 70 02/21/19 08:00 98.1 68 20 104/65 (78) 100 02/21/19 08:00 Nasal Cannula 2.0 02/21/19 07:27 100 Nasal Cannula 2.0 28 02/21/19 07:27 66 18 100 Nasal Cannula 2.0 28 02/21/19 07:27 Nasal Cannula 02/21/19 04:00 Nasal Cannula 2.0 02/21/19 04:00 98.1 72 20 119/76 (90) 100 02/21/19 04:00 73 02/21/19 02:34 Nasal Cannula 02/21/19 02:33 Nasal Cannula 02/21/19 00:00 Nasal Cannula 2.0 02/21/19 00:00 97.2 71 18 119/50 (73) 100 02/20/19 23:33 67 02/20/19 23:11 Nasal Cannula 02/20/19 23:08 73 18 97 Nasal Cannula 2.0 28 02/20/19 20:00 Nasal Cannula 2.0 02/20/19 20:00 97.9 75 18 121/47 (71) 99 02/20/19 19:42 Nasal Cannula 02/20/19 19:40 54 18 97 Nasal Cannula 2.0 28 02/20/19 19:39 97 Nasal Cannula 2.0 28 02/20/19 19:17 77 02/20/19 19:00 75 20 109/41 (63) 100 02/20/19 18:00 76 20 108/39 (62) 100 02/20/19 17:00 74 20 110/39 (62) 100 02/20/19 16:00 Nasal Cannula 2.0 02/20/19 16:00 76 02/20/19 16:00 97.5 85 16 108/43 (64) 100 02/20/19 15:34 66 16 100 Nasal Cannula 2.0 28 02/20/19 15:24 63 20 100 Nasal Cannula 2.0 28 02/20/19 14:00 69 16 106/38 (60) 100 02/20/19 13:00 97.8 73 19 113/50 (71) 100 02/20/19 12:00 Nasal Cannula 2.0 02/20/19 12:00 77 19 96/41 (59) 100 02/20/19 11:26 86 02/20/19 11:00 77 20 94/45 (61) 100 02/20/19 10:52 78 18 100 Nasal Cannula 2.0 28 02/20/19 10:42 71 20 100 Nasal Cannula 2.0 28 Intake and Output 02/21/19 02/22/19 18:59 06:59 Intake Total 205 ml 730 ml Output Total 550 ml 850 ml Balance -345 ml -120 ml IV Total 205 ml 730 ml Output Urine Total 550 ml 850 ml Labs Test 02/20/19 03:35 02/20/19 07:15 02/21/19 04:00 02/22/19 04:30 Sodium Level 165 MMOL/L (136-145) 154 MMOL/L (136-145) 150 MMOL/L (136-145) Potassium Level 3.4 MMOL/L (3.5-5.1) 3.5 MMOL/L (3.5-5.1) 3.3 MMOL/L (3.5-5.1) Chloride Level 130 MMOL/L (98-107) 123 MMOL/L (98-107) 119 MMOL/L (98-107) Carbon Dioxide Level 27 MMOL/L (21-32) 26 MMOL/L (21-32) 19 MMOL/L (21-32) Anion Gap 8 mmol/L (5-15) 5 mmol/L (5-15) 12 mmol/L (5-15) Blood Urea Nitrogen 69 mg/dL (7-18) 39 mg/dL (7-18) 20 mg/dL (7-18) Creatinine 1.2 MG/DL (0.55-1.30) 1.2 MG/DL (0.55-1.30) 1.0 MG/DL (0.55-1.30) Estimat Glomerular Filtration Rate mL/min (>60) mL/min (>60) mL/min (>60) Glucose Level 238 MG/DL (74-106) 116 MG/DL (74-106) 131 MG/DL (74-106) Uric Acid 5.6 MG/DL (2.6-7.2) 4.2 MG/DL (2.6-7.2) Calcium Level 8.0 MG/DL (8.5-10.1) 7.4 MG/DL (8.5-10.1) 7.0 MG/DL (8.5-10.1) Phosphorus Level 2.6 MG/DL (2.5-4.9) 1.6 MG/DL (2.5-4.9) 2.8 MG/DL (2.5-4.9) Magnesium Level 1.9 MG/DL (1.8-2.4) 1.5 MG/DL (1.8-2.4) 2.1 MG/DL (1.8-2.4) Total Bilirubin 0.3 MG/DL (0.2-1.0) 0.4 MG/DL (0.2-1.0) 0.6 MG/DL (0.2-1.0) Aspartate Amino Transf (AST/SGOT) 16 U/L (15-37) 13 U/L (15-37) 13 U/L (15-37) Alanine Aminotransferase (ALT/SGPT) 9 U/L (12-78) 9 U/L (12-78) 8 U/L (12-78) Alkaline Phosphatase 73 U/L (46-116) 76 U/L (46-116) 55 U/L (46-116) C-Reactive Protein, Quantitative 69.4 mg/dL (0.00-0.90) Pro-B-Type Natriuretic Peptide 3788 pg/mL (0-125) Total Protein 6.7 G/DL (6.4-8.2) 6.9 G/DL (6.4-8.2) 6.2 G/DL (6.4-8.2) Albumin 1.8 G/DL (3.4-5.0) 1.6 G/DL (3.4-5.0) 1.3 G/DL (3.4-5.0) Globulin 4.9 g/dL 5.3 g/dL Albumin/Globulin Ratio 0.4 (1.0-2.7) 0.3 (1.0-2.7) White Blood Count 10.6 K/UL (4.8-10.8) 8.6 K/UL (4.8-10.8) 7.4 K/UL (4.8-10.8) Red Blood Count 2.75 M/UL (4.20-5.40) 2.85 M/UL (4.20-5.40) 3.23 M/UL (4.20-5.40) Hemoglobin 7.3 G/DL (12.0-16.0) 7.7 G/DL (12.0-16.0) 8.7 G/DL (12.0-16.0) Hematocrit 25.1 % (37.0-47.0) 25.4 % (37.0-47.0) 28.3 % (37.0-47.0) Mean Corpuscular Volume 91 FL (80-99) 89 FL (80-99) 87 FL (80-99) Mean Corpuscular Hemoglobin 26.5 PG (27.0-31.0) 27.2 PG (27.0-31.0) 27.0 PG (27.0-31.0) Mean Corpuscular Hemoglobin Concent 29.0 G/DL (32.0-36.0) 30.5 G/DL (32.0-36.0) 30.9 G/DL (32.0-36.0) Red Cell Distribution Width 17.7 % (11.6-14.8) 16.5 % (11.6-14.8) 16.0 % (11.6-14.8) Platelet Count 189 K/UL (150-450) 162 K/UL (150-450) 147 K/UL (150-450) Mean Platelet Volume 8.7 FL (6.5-10.1) 8.8 FL (6.5-10.1) 9.3 FL (6.5-10.1) Neutrophils (%) (Auto) % (45.0-75.0) % (45.0-75.0) 56.3 % (45.0-75.0) Lymphocytes (%) (Auto) % (20.0-45.0) % (20.0-45.0) 38.2 % (20.0-45.0) Monocytes (%) (Auto) % (1.0-10.0) % (1.0-10.0) 3.1 % (1.0-10.0) Eosinophils (%) (Auto) % (0.0-3.0) % (0.0-3.0) 2.0 % (0.0-3.0) Basophils (%) (Auto) % (0.0-2.0) % (0.0-2.0) 0.4 % (0.0-2.0) Differential Total Cells Counted 100 Neutrophils % (Manual) 65 % (45-75) Lymphocytes % (Manual) 26 % (20-45) Monocytes % (Manual) 2 % (1-10) Eosinophils % (Manual) 2 % (0-3) Basophils % (Manual) 0 % (0-2) Band Neutrophils 5 % (0-8) Platelet Estimate Adequate Platelet Morphology Normal Hypochromasia 1+ Anisocytosis 1+ Direct Bilirubin 0.2 MG/DL (0.0-0.3) Height (Feet): 5 Height (Inches): 7.00 Weight (Pounds): 175 Objective General Appearance: severe distress, lethargic, Chronically Ill Head: normocephalic, atraumatic Eyes: bilateral eye PERRL, bilateral eye EOMI ENT: dry mucus membranes Neck: full range of motion, supple, no meningismus Respiratory: chest non-tender, respiratory distress, rhonchi. CPAP+ Cardiovascular: regular rate, rhythm, no murmur, tachycardia Gastrointestinal: normal bowel sounds, non tender- Reducible abdominal wall hernia. COLOSTOMY+, GT++ Rectal: other - large sacral Stage 4 ulcer Tobin Stover MD Feb 22, 2019 10:22
--- NOTE | 2019-02-22 11:37 | Nephrology Progress Note ---
Assessment/Plan Problem List: (1) Renal failure (ARF), acute on chronic (2) Hypotension (3) Anemia (4) Colostomy status (5) PEG (percutaneous endoscopic gastrostomy) status (6) Electrolyte imbalance Assessment Acute renal failure ? Underlying CKD Severe Dehydration Hyperglycemia- DM OOC A1c High Severe underlying Anemia Electrolyte imbalance UTI PEG Colostomy Severe HypoAlbuminemia Plan Plan; K and Phos and Mag supplement as needed D5W Hydrate Glucose check Albumin bolus as needed K mag Phos supplement as needed monitor lytes, and H&H Per orders Subjective ROS Limited/Unobtainable: No Constitutional: Reports: malaise, weakness Objective Objective Last 24 Hour Vital Signs Date Time Temp Pulse Resp B/P (MAP) Pulse Ox O2 Delivery O2 Flow Rate FiO2 02/22/19 10:45 Nasal Cannula 2.0 28 02/22/19 10:45 Nasal Cannula 2.0 28 02/22/19 08:00 97.7 64 18 149/63 (91) 100 02/22/19 08:00 Nasal Cannula 2.0 02/22/19 07:49 77 02/22/19 07:05 Nasal Cannula 2.0 28 02/22/19 07:05 Nasal Cannula 2.0 28 02/22/19 07:05 99 Nasal Cannula 2.0 28 02/22/19 04:00 Nasal Cannula 2.0 02/22/19 04:00 97.9 71 22 117/74 (88) 100 02/22/19 04:00 75 02/22/19 03:15 Nasal Cannula 02/22/19 03:12 Nasal Cannula 2.0 28 02/22/19 00:00 72 02/22/19 00:00 Nasal Cannula 2.0 02/22/19 00:00 98.4 71 20 109/57 (74) 100 02/21/19 23:08 Nasal Cannula 02/21/19 23:08 Nasal Cannula 2.0 28 02/21/19 20:10 98.2 68 20 115/34 (61) 100 02/21/19 20:00 69 02/21/19 20:00 Nasal Cannula 2.0 02/21/19 19:56 Nasal Cannula 02/21/19 19:55 67 20 99 Nasal Cannula 2.0 28 02/21/19 19:55 98 Nasal Cannula 2.0 28 02/21/19 16:00 74 02/21/19 16:00 98.4 72 18 114/60 (78) 99 02/21/19 16:00 Nasal Cannula 2.0 02/21/19 15:00 Nasal Cannula 2.0 28 02/21/19 15:00 Nasal Cannula 02/21/19 12:00 Nasal Cannula 2.0 02/21/19 12:00 98.2 75 18 131/61 (84) 100 02/21/19 12:00 73 Intake and Output 02/21/19 02/22/19 18:59 06:59 Intake Total 205 ml 730 ml Output Total 550 ml 850 ml Balance -345 ml -120 ml IV Total 205 ml 730 ml Output Urine Total 550 ml 850 ml Laboratory Tests 02/22/19 04:30: White Blood Count 7.4, Red Blood Count 3.23L, Hemoglobin 8.7L, Hematocrit 28.3L , Mean Corpuscular Volume 87, Mean Corpuscular Hemoglobin 27.0, Mean Corpuscular Hemoglobin Concent 30.9L, Red Cell Distribution Width 16.0H, Platelet Count 147L, Mean Platelet Volume 9.3, Neutrophils (%) (Auto) 56.3, Lymphocytes (%) (Auto) 38.2, Monocytes (%) (Auto) 3.1, Eosinophils (%) (Auto) 2.0, Basophils (%) (Auto) 0.4, Sodium Level 150H, Potassium Level 3.3L, Chloride Level 119H, Carbon Dioxide Level 19L, Anion Gap 12, Blood Urea Nitrogen 20H, Creatinine 1.0, Estimat Glomerular Filtration Rate , Glucose Level 131H, Uric Acid 4.2, Calcium Level 7.0L, Phosphorus Level 2.8, Magnesium Level 2.1, Total Bilirubin 0.6, Direct Bilirubin 0.2, Aspartate Amino Transf ( AST/SGOT) 13L, Alanine Aminotransferase (ALT/SGPT) 8L, Alkaline Phosphatase 55, Total Protein 6.2L, Albumin 1.3L Height (Feet): 5 Height (Inches): 7.00 Weight (Pounds): 175 General Appearance: no apparent distress Cardiovascular: tachycardia Respiratory/Chest: decreased breath sounds Abdomen: distended Servando Cifuentes MD Feb 22, 2019 11:37
[2019-02-22 12:00] VITALS: BP 118/57
--- NOTE | 2019-02-22 12:21 | Infectious Diseases Prog Note ---
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 RECOMMENDATION: We will continue with cefepime According to surgeon wound is not likely the source of infection Wound care Subjective ROS Limited/Unobtainable: Yes Constitutional: Reports: no symptoms Musculoskeletal: Reports: no symptoms Allergies: Coded Allergies: ALLOPURINOL (Verified Allergy, Unknown, 12/20/18) Objective Vital Signs Last 24 Hour Vital Signs Date Time Temp Pulse Resp B/P (MAP) Pulse Ox O2 Delivery O2 Flow Rate FiO2 02/22/19 12:00 Nasal Cannula 2.0 02/22/19 12:00 97.6 69 19 118/57 (77) 100 02/22/19 10:45 Nasal Cannula 2.0 28 02/22/19 10:45 Nasal Cannula 2.0 28 02/22/19 08:00 97.7 64 18 149/63 (91) 100 02/22/19 08:00 Nasal Cannula 2.0 02/22/19 07:49 77 02/22/19 07:05 Nasal Cannula 2.0 28 02/22/19 07:05 Nasal Cannula 2.0 28 02/22/19 07:05 99 Nasal Cannula 2.0 28 02/22/19 04:00 Nasal Cannula 2.0 02/22/19 04:00 97.9 71 22 117/74 (88) 100 02/22/19 04:00 75 02/22/19 03:15 Nasal Cannula 02/22/19 03:12 Nasal Cannula 2.0 28 02/22/19 00:00 72 02/22/19 00:00 Nasal Cannula 2.0 02/22/19 00:00 98.4 71 20 109/57 (74) 100 02/21/19 23:08 Nasal Cannula 02/21/19 23:08 Nasal Cannula 2.0 28 02/21/19 20:10 98.2 68 20 115/34 (61) 100 02/21/19 20:00 69 02/21/19 20:00 Nasal Cannula 2.0 02/21/19 19:56 Nasal Cannula 02/21/19 19:55 67 20 99 Nasal Cannula 2.0 28 02/21/19 19:55 98 Nasal Cannula 2.0 28 02/21/19 16:00 74 02/21/19 16:00 98.4 72 18 114/60 (78) 99 02/21/19 16:00 Nasal Cannula 2.0 02/21/19 15:00 Nasal Cannula 2.0 28 02/21/19 15:00 Nasal Cannula Height (Feet): 5 Height (Inches): 7.00 Weight (Pounds): 175 General Appearance: no acute distress HEENT: mucous membranes moist Respiratory/Chest: lungs clear Cardiovascular: normal rate Abdomen: soft, non tender, other - GT feeding, s/p colostomy Extremities: other - mild dependent edema Neurologic/Psychiatric: alert, responsive Laboratory Tests Test 02/22/19 04:30 White Blood Count 7.4 K/UL (4.8-10.8) Red Blood Count 3.23 M/UL (4.20-5.40) L Hemoglobin 8.7 G/DL (12.0-16.0) L Hematocrit 28.3 % (37.0-47.0) L Mean Corpuscular Volume 87 FL (80-99) Mean Corpuscular Hemoglobin 27.0 PG (27.0-31.0) Mean Corpuscular Hemoglobin Concent 30.9 G/DL (32.0-36.0) L Red Cell Distribution Width 16.0 % (11.6-14.8) H Platelet Count 147 K/UL (150-450) L Mean Platelet Volume 9.3 FL (6.5-10.1) Neutrophils (%) (Auto) 56.3 % (45.0-75.0) Lymphocytes (%) (Auto) 38.2 % (20.0-45.0) Monocytes (%) (Auto) 3.1 % (1.0-10.0) Eosinophils (%) (Auto) 2.0 % (0.0-3.0) Basophils (%) (Auto) 0.4 % (0.0-2.0) Sodium Level 150 MMOL/L (136-145) H Potassium Level 3.3 MMOL/L (3.5-5.1) L Chloride Level 119 MMOL/L (98-107) H Carbon Dioxide Level 19 MMOL/L (21-32) L Anion Gap 12 mmol/L (5-15) Blood Urea Nitrogen 20 mg/dL (7-18) H Creatinine 1.0 MG/DL (0.55-1.30) Estimat Glomerular Filtration Rate mL/min (>60) Glucose Level 131 MG/DL (74-106) H Uric Acid 4.2 MG/DL (2.6-7.2) Calcium Level 7.0 MG/DL (8.5-10.1) L Phosphorus Level 2.8 MG/DL (2.5-4.9) Magnesium Level 2.1 MG/DL (1.8-2.4) Total Bilirubin 0.6 MG/DL (0.2-1.0) Direct Bilirubin 0.2 MG/DL (0.0-0.3) Aspartate Amino Transf (AST/SGOT) 13 U/L (15-37) L Alanine Aminotransferase (ALT/SGPT) 8 U/L (12-78) L Alkaline Phosphatase 55 U/L (46-116) Total Protein 6.2 G/DL (6.4-8.2) L Albumin 1.3 G/DL (3.4-5.0) L Current Medications Medications (Trade) Dose Ordered Sig/Nora Route PRN Reason Start Time Stop Time Status Last Admin Dose Admin Albuterol/ Ipratropium (Albuterol/ Ipratropium) 3 ml Q4HRT HHN 02/20/19 19:00 02/23/19 22:59 02/21/19 07:27 Aspirin (Ecotrin) 81 mg DAILY ORAL 02/21/19 09:00 03/21/19 12:29 02/22/19 09:16 Atorvastatin Calcium (Lipitor) 40 mg BEDTIME ORAL 02/20/19 21:00 03/21/19 20:59 02/21/19 20:23 Cefepime HCl 1 gm/ Sodium Chloride 55 ml @ 110 mls/hr DAILY IVPB 02/21/19 18:00 02/25/19 17:59 02/22/19 09:17 Chlorhexidine Gluconate (Valentina-Hex 2%) 1 applic DAILY@2000 TOPIC 02/20/19 20:00 03/21/19 19:59 02/21/19 20:22 Dextrose 1,000 ml @ 75 mls/hr [id number] IV 02/21/19 11:00 03/23/19 10:59 02/22/19 10:09 Dextrose (Dextrose 50%) 25 ml Q30M PRN IV Hypoglycemia 02/20/19 19:30 03/21/19 08:59 Dextrose (Dextrose 50%) 50 ml Q30M PRN IV Hypoglycemia 02/20/19 19:30 03/21/19 08:59 Insulin Aspart (NovoLOG) BEFORE MEALS AND HS SUBQ 02/20/19 21:00 03/21/19 11:29 02/22/19 06:08 Insulin Detemir (Levemir) 6 units BID SUBQ 02/21/19 09:00 03/21/19 08:59 02/22/19 09:19 Iron Sucrose 100 mg/Sodium Chloride 55 ml @ 200 mls/hr BEDTIME IV 02/21/19 21:00 02/25/19 21:17 02/21/19 20:23 Pantoprazole (Protonix) 40 mg EVERY 12 HOURS IVP 02/20/19 21:00 03/22/19 10:29 02/22/19 09:16 Potassium Chloride 100 ml @ 100 mls/hr Q1HR IVPB 02/22/19 10:00 02/22/19 13:59 02/22/19 11:19 Roland Navarro MD Feb 22, 2019 12:21
--- NOTE | 2019-02-22 13:00 | NUR ---
NURSE NOTES: Started GTF Glucerna 1.2 at 30cc/hr at 12pm. Tolerating well. No residual noted. HOB elevated at all times. Will cont. to monitor.
--- NOTE | 2019-02-22 17:27 | Surgery Progress Note ---
Surgery Progress Note Subjective Symptoms: improved, tolerating diet, voiding well, passing flatus Objective Last 24 Hour Vital Signs Date Time Temp Pulse Resp B/P (MAP) Pulse Ox O2 Delivery O2 Flow Rate FiO2 02/22/19 16:00 Nasal Cannula 2.0 02/22/19 14:32 Nasal Cannula 2.0 28 02/22/19 14:32 Nasal Cannula 2.0 28 02/22/19 12:00 Nasal Cannula 2.0 02/22/19 12:00 97.6 69 19 118/57 (77) 100 02/22/19 11:33 74 02/22/19 10:45 Nasal Cannula 2.0 28 02/22/19 10:45 Nasal Cannula 2.0 28 02/22/19 08:00 97.7 64 18 149/63 (91) 100 02/22/19 08:00 Nasal Cannula 2.0 02/22/19 07:49 77 02/22/19 07:05 Nasal Cannula 2.0 02/22/19 07:05 Nasal Cannula 2.0 02/22/19 07:05 99 Nasal Cannula 2.0 28 02/22/19 04:00 Nasal Cannula 2.0 02/22/19 04:00 97.9 71 22 117/74 (88) 100 02/22/19 04:00 75 02/22/19 03:15 Nasal Cannula 02/22/19 03:12 Nasal Cannula 2.0 28 02/22/19 00:00 72 02/22/19 00:00 Nasal Cannula 2.0 02/22/19 00:00 98.4 71 20 109/57 (74) 100 02/21/19 23:08 Nasal Cannula 02/21/19 23:08 Nasal Cannula 2.0 28 02/21/19 20:10 98.2 68 20 115/34 (61) 100 02/21/19 20:00 69 02/21/19 20:00 Nasal Cannula 2.0 02/21/19 19:56 Nasal Cannula 02/21/19 19:55 67 20 99 Nasal Cannula 2.0 28 02/21/19 19:55 98 Nasal Cannula 2.0 28 I&O Intake and Output 02/21/19 02/22/19 19:00 07:00 Intake Total 205 ml 805 ml Output Total 550 ml 850 ml Balance -345 ml -45 ml IV Total 205 ml 805 ml Output Urine Total 550 ml 850 ml Dressing: other Wound: other Drains: other Cardiovascular: RSR Respiratory: decreased breath sounds Abdomen: soft, present bowel sounds, other Extremities: other Laboratory Tests Test 02/22/19 04:30 White Blood Count 7.4 K/UL (4.8-10.8) Red Blood Count 3.23 M/UL (4.20-5.40) L Hemoglobin 8.7 G/DL (12.0-16.0) L Hematocrit 28.3 % (37.0-47.0) L Mean Corpuscular Volume 87 FL (80-99) Mean Corpuscular Hemoglobin 27.0 PG (27.0-31.0) Mean Corpuscular Hemoglobin Concent 30.9 G/DL (32.0-36.0) L Red Cell Distribution Width 16.0 % (11.6-14.8) H Platelet Count 147 K/UL (150-450) L Mean Platelet Volume 9.3 FL (6.5-10.1) Neutrophils (%) (Auto) 56.3 % (45.0-75.0) Lymphocytes (%) (Auto) 38.2 % (20.0-45.0) Monocytes (%) (Auto) 3.1 % (1.0-10.0) Eosinophils (%) (Auto) 2.0 % (0.0-3.0) Basophils (%) (Auto) 0.4 % (0.0-2.0) Sodium Level 150 MMOL/L (136-145) H Potassium Level 3.3 MMOL/L (3.5-5.1) L Chloride Level 119 MMOL/L (98-107) H Carbon Dioxide Level 19 MMOL/L (21-32) L Anion Gap 12 mmol/L (5-15) Blood Urea Nitrogen 20 mg/dL (7-18) H Creatinine 1.0 MG/DL (0.55-1.30) Estimat Glomerular Filtration Rate mL/min (>60) Glucose Level 131 MG/DL (74-106) H Uric Acid 4.2 MG/DL (2.6-7.2) Calcium Level 7.0 MG/DL (8.5-10.1) L Phosphorus Level 2.8 MG/DL (2.5-4.9) Magnesium Level 2.1 MG/DL (1.8-2.4) Total Bilirubin 0.6 MG/DL (0.2-1.0) Direct Bilirubin 0.2 MG/DL (0.0-0.3) Aspartate Amino Transf (AST/SGOT) 13 U/L (15-37) L Alanine Aminotransferase (ALT/SGPT) 8 U/L (12-78) L Alkaline Phosphatase 55 U/L (46-116) Total Protein 6.2 G/DL (6.4-8.2) L Albumin 1.3 G/DL (3.4-5.0) L Plan Problems: (1) Decubitus ulcer of sacral region, stage 4 Assessment & Plan: Pt presented on admission with full thickness stage 4 Sacral Pressure Injury with undermining. Bone is palpable. Base of has beefy red granulation with scattered small purple areas. No odor noted .Scant serous exudate noted . Edges pink and flat with some sloth. DTPI noted to lateral R foot. .Base of wound purple and fluctuant in center with surrounding maroon discoloration Non-blanchable erythema with fluctuance noted to posterior and medial R heel. L heel boggy but blanchable. Tx.Plan: Cleanse Sacral wound with Saline. Loosely pack with Hydrogel Impregnated Kerlix. Cover with ABD pads and secure with Paper Tape or Tegaderm Daily and prn. Apply Cavilon Skin Barrier to R and Heel and lateral R heel. Ciover with Optifoam drsg. Change every 7 days and PRN. Apply Cavilon Skin Barrier to L heel. Cover with Optifoam drsg. Change every 7 days and prn. APM/VIJI Mattress Overlay. Reposition at least every 2hours or as tolerated. Off-load heels with Pillow. (2) Sepsis Assessment & Plan: tachycardia, leukocytosis, anemia, abnormal labs, altered status wound evaluate and tho not as optimal as prior unlikely etiology of infection IV abx as per ID care orders as below trend labs will follow with recs thank you Mauro Morrow Feb 22, 2019 17:27
--- NOTE | 2019-02-22 19:18 | NUR ---
HAND-OFF: Report given to Beata Muro RN. Pt. remain stable.
--- NOTE | 2019-02-22 19:30 | NUR ---
NURSE NOTES: Received Pt is resting on the bed and confused. On Tele monitor with SR. On O2 2L via nasal cannula. Denied pain at this time. No c/o SOB. No sign of hypo/hyperglycemic reaction. Iv site intact and no sign of infiltration noted. Dressing is clean and dry on wound area. Dressing is intact on Rt. femoral TLC line area. On G-tube feeding with Glucerna 1.2 @30cc/hr. No residual noted. Keep HOB. Patent on Agarwal cath and drainage well. Changed position. Placed fall precaution. Will continue to care plan.
[2019-02-22 20:00] VITALS: BP 113/52
[2019-02-22] MEDS: Dyna-Hex 2% Top Sol 2oz TOPIC SCH (20:24)
--- NOTE | 2019-02-22 20:57 | General Progress Note ---
Assessment/Plan Problem List: (1) Renal failure (ARF), acute on chronic ICD Codes: N17.9 - Acute kidney failure, unspecified; N18.9 - Chronic kidney disease, unspecified SNOMED: 403920597 (2) Altered level of consciousness ICD Codes: R40.4 - Transient alteration of awareness SNOMED: 8318752 (3) Hypotension ICD Codes: I95.9 - Hypotension, unspecified SNOMED: 82878948 (4) Anemia ICD Codes: D64.9 - Anemia, unspecified SNOMED: 342875893 (5) Sepsis ICD Codes: A41.9 - Sepsis, unspecified organism SNOMED: 84192153 (6) Electrolyte imbalance ICD Codes: E87.8 - Other disorders of electrolyte and fluid balance, not elsewhere classified SNOMED: 177772264 Status: progressing Assessment/Plan: sugar is note control anemia sepsis afebrile obesity no wheezing reviewed chart and labs Subjective ROS Limited/Unobtainable: Yes Allergies: Coded Allergies: ALLOPURINOL (Verified Allergy, Unknown, 12/20/18) Objective Last 24 Hour Vital Signs Date Time Temp Pulse Resp B/P (MAP) Pulse Ox O2 Delivery O2 Flow Rate FiO2 02/22/19 19:20 Nasal Cannula 2.0 28 02/22/19 19:20 99 Nasal Cannula 2.0 28 02/22/19 19:20 Nasal Cannula 2.0 02/22/19 16:00 Nasal Cannula 2.0 02/22/19 15:22 80 02/22/19 14:32 Nasal Cannula 2.0 28 02/22/19 14:32 Nasal Cannula 2.0 28 02/22/19 12:00 Nasal Cannula 2.0 02/22/19 12:00 97.6 69 19 118/57 (77) 100 02/22/19 11:33 74 02/22/19 10:45 Nasal Cannula 2.0 28 02/22/19 10:45 Nasal Cannula 2.0 28 02/22/19 08:00 97.7 64 18 149/63 (91) 100 02/22/19 08:00 Nasal Cannula 2.0 02/22/19 07:49 77 02/22/19 07:05 Nasal Cannula 2.0 28 02/22/19 07:05 Nasal Cannula 2.0 02/22/19 07:05 99 Nasal Cannula 2.0 02/22/19 04:00 Nasal Cannula 2.0 02/22/19 04:00 97.9 71 22 117/74 (88) 100 02/22/19 04:00 75 02/22/19 03:15 Nasal Cannula 02/22/19 03:12 Nasal Cannula 2.0 28 02/22/19 00:00 72 02/22/19 00:00 Nasal Cannula 2.0 02/22/19 00:00 98.4 71 20 109/57 (74) 100 02/21/19 23:08 Nasal Cannula 02/21/19 23:08 Nasal Cannula 2.0 28 Intake and Output 02/21/19 02/22/19 19:00 07:00 Intake Total 205 ml 805 ml Output Total 550 ml 850 ml Balance -345 ml -45 ml IV Total 205 ml 805 ml Output Urine Total 550 ml 850 ml Laboratory Tests 02/22/19 04:30: White Blood Count 7.4, Red Blood Count 3.23L, Hemoglobin 8.7L, Hematocrit 28.3L , Mean Corpuscular Volume 87, Mean Corpuscular Hemoglobin 27.0, Mean Corpuscular Hemoglobin Concent 30.9L, Red Cell Distribution Width 16.0H, Platelet Count 147L, Mean Platelet Volume 9.3, Neutrophils (%) (Auto) 56.3, Lymphocytes (%) (Auto) 38.2, Monocytes (%) (Auto) 3.1, Eosinophils (%) (Auto) 2.0, Basophils (%) (Auto) 0.4, Sodium Level 150H, Potassium Level 3.3L, Chloride Level 119H, Carbon Dioxide Level 19L, Anion Gap 12, Blood Urea Nitrogen 20H, Creatinine 1.0, Estimat Glomerular Filtration Rate , Glucose Level 131H, Uric Acid 4.2, Calcium Level 7.0L, Phosphorus Level 2.8, Magnesium Level 2.1, Total Bilirubin 0.6, Direct Bilirubin 0.2, Aspartate Amino Transf ( AST/SGOT) 13L, Alanine Aminotransferase (ALT/SGPT) 8L, Alkaline Phosphatase 55, Total Protein 6.2L, Albumin 1.3L Height (Feet): 5 Height (Inches): 7.00 Weight (Pounds): 175 General Appearance: lethargic, confused Cardiovascular: normal rate Danial Walden MD Feb 22, 2019 20:57
[2019-02-22] MEDS: Atorvastatin 20mg tab ORAL SCH (21:01)
--- NOTE | 2019-02-22 22:38 | Pulmonolgy Critical Care Note ---
Critical Care - Asmt/Plan Assessment/Plan: Pulmonary CCM Progress Note HPI Patient is an 83 year old woman from [facility], history of Diabetes, admitted with alteration in mental status, very high glucose readings - now resolved Noted to have a UTI - gas bubbles at the periphery of the dome of the bladder are concerning for intramural gas consistent with emphysematous cystitis, on antiibiotics per ID No reports of vomiting or diarrhea Hypernatremia improving Past Medical History: Diabetes, Hypertension, Chronic Obstructive Pulmonary Disease, Dyphagia, s/p Gastrostomy Tube, Anemia, Previous CVA, previous colostomy All Other Systems: limited Physical Exam Vital Signs Noted Date Time Temp Pulse Resp B/P (MAP) Pulse Ox O2 Delivery O2 Flow Rate FiO2 02/18/19 12:08 98.1 101 24 101/82 (88) 98 Room Air General Appearance: Chronically ill appearing, altered mental status, no response to verbal command,moans with physical stimuli Head: normocephalic, atraumatic Eyes: bilateral eye PERRL ENT: no angioedema, dry mucus membranes Neck: supple, no LN Respiratory: no respiratory distress, crackles - bilaterally Cardiovascular: tachycardia, HS1, HS2, normal, RRR Gastrointestinal: non tender, soft, other - Colostomy bag noted Musculoskeletal: oupper extremity localizes towards physical stimuli, Neurologic: Significantly decreased GCS patient makes moaning sound to physical stimuli is somewhat purposeful with her upper extremity, otherwise nonverbal does not follow commands Skin: no rash, no edema Impression Severe Hyperglycemia Severe Dehydration Urinary Tract Infection Sepsis Previous Diabetes Hypertension Chronic Obstructive Pulmonary Disease Dysphagia, s/p Gastrostomy Tube Anemia Previous CVA Plan - IV Antibiotics per ID - Blood/Urine cultures - Insulin SS - IV fluids PRN - Monitor labs - Pressors PRN - HHN - O2 PRN - 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 Gas within the bladder lumen is presumably related to Agarwal catheter. However, gas bubbles at the periphery of the dome of the bladder are concerning for intramural gas consistent with emphysematous cystitis. Positive for tiny right distal ureteral calculus resulting in moderate right hydronephrosis and hydroureter Bilateral intrarenal calculi Extensive retrosacral/retrococcygeal decubitus changes. Correlate with clinical findings. 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 CXR: Nil acute Critical Care - Objective Last 24 Hour Vital Signs Date Time Temp Pulse Resp B/P (MAP) Pulse Ox O2 Delivery O2 Flow Rate FiO2 02/22/19 20:00 Nasal Cannula 2.0 02/22/19 20:00 98.8 73 19 113/52 (72) 100 02/22/19 20:00 74 02/22/19 19:20 Nasal Cannula 2.0 28 02/22/19 19:20 99 Nasal Cannula 2.0 28 02/22/19 19:20 Nasal Cannula 2.0 28 02/22/19 16:00 Nasal Cannula 2.0 02/22/19 15:22 80 02/22/19 14:32 Nasal Cannula 2.0 02/22/19 14:32 Nasal Cannula 2.0 28 02/22/19 12:00 Nasal Cannula 2.0 02/22/19 12:00 97.6 69 19 118/57 (77) 100 02/22/19 11:33 74 02/22/19 10:45 Nasal Cannula 2.0 02/22/19 10:45 Nasal Cannula 2.0 02/22/19 08:00 97.7 64 18 149/63 (91) 100 02/22/19 08:00 Nasal Cannula 2.0 02/22/19 07:49 77 02/22/19 07:05 Nasal Cannula 2.0 02/22/19 07:05 Nasal Cannula 2.0 28 02/22/19 07:05 99 Nasal Cannula 2.0 02/22/19 04:00 Nasal Cannula 2.0 02/22/19 04:00 97.9 71 22 117/74 (88) 100 02/22/19 04:00 75 02/22/19 03:15 Nasal Cannula 02/22/19 03:12 Nasal Cannula 2.0 28 02/22/19 00:00 72 02/22/19 00:00 Nasal Cannula 2.0 02/22/19 00:00 98.4 71 20 109/57 (74) 100 02/21/19 23:08 Nasal Cannula 02/21/19 23:08 Nasal Cannula 2.0 28 Accucheck: 148 Critical Care - Subjective ROS Limited/Unobtainable: No FI02: 28 Sputum Amount: None Tube Feeding Amount: 40 I&O: Intake and Output 02/21/19 02/22/19 19:00 07:00 Intake Total 205 ml 805 ml Output Total 550 ml 850 ml Balance -345 ml -45 ml IV Total 205 ml 805 ml Output Urine Total 550 ml 850 ml Minh Dunbar MD Feb 22, 2019 22:38
--- NOTE | 2019-02-22 23:54 | Cardiology Progress Note ---
Assessment/Plan Assessment/Plan 1. Sinus tachycardia, resolved, continue hydration. 2. Hypoxemic hypercarbic respiratory failure. 3. Severe hypernatremia secondary volume contraction, improving with serum Na at 150. 4. MANUEL, resolved. 5. Anemia Subjective Subjective Sinus rhythm at rate of 73. Objective Last 24 Hour Vital Signs Date Time Temp Pulse Resp B/P (MAP) Pulse Ox O2 Delivery O2 Flow Rate FiO2 02/22/19 23:27 Nasal Cannula 2.0 28 02/22/19 23:27 Nasal Cannula 2.0 28 02/22/19 20:00 Nasal Cannula 2.0 02/22/19 20:00 98.8 73 19 113/52 (72) 100 02/22/19 20:00 74 02/22/19 19:20 Nasal Cannula 2.0 02/22/19 19:20 99 Nasal Cannula 2.0 28 02/22/19 19:20 Nasal Cannula 2.0 02/22/19 16:00 Nasal Cannula 2.0 02/22/19 15:22 80 02/22/19 14:32 Nasal Cannula 2.0 02/22/19 14:32 Nasal Cannula 2.0 28 02/22/19 12:00 Nasal Cannula 2.0 02/22/19 12:00 97.6 69 19 118/57 (77) 100 02/22/19 11:33 74 02/22/19 10:45 Nasal Cannula 2.0 02/22/19 10:45 Nasal Cannula 2.0 02/22/19 08:00 97.7 64 18 149/63 (91) 100 02/22/19 08:00 Nasal Cannula 2.0 02/22/19 07:49 77 02/22/19 07:05 Nasal Cannula 2.0 28 02/22/19 07:05 Nasal Cannula 2.0 02/22/19 07:05 99 Nasal Cannula 2.0 02/22/19 04:00 Nasal Cannula 2.0 02/22/19 04:00 97.9 71 22 117/74 (88) 100 02/22/19 04:00 75 02/22/19 03:15 Nasal Cannula 02/22/19 03:12 Nasal Cannula 2.0 28 02/22/19 00:00 72 02/22/19 00:00 Nasal Cannula 2.0 02/22/19 00:00 98.4 71 20 109/57 (74) 100 Intake and Output 02/21/19 02/22/19 19:00 07:00 Intake Total 205 ml 805 ml Output Total 550 ml 850 ml Balance -345 ml -45 ml IV Total 205 ml 805 ml Output Urine Total 550 ml 850 ml Laboratory Tests Test 02/22/19 04:30 White Blood Count 7.4 K/UL (4.8-10.8) Red Blood Count 3.23 M/UL (4.20-5.40) L Hemoglobin 8.7 G/DL (12.0-16.0) L Hematocrit 28.3 % (37.0-47.0) L Mean Corpuscular Volume 87 FL (80-99) Mean Corpuscular Hemoglobin 27.0 PG (27.0-31.0) Mean Corpuscular Hemoglobin Concent 30.9 G/DL (32.0-36.0) L Red Cell Distribution Width 16.0 % (11.6-14.8) H Platelet Count 147 K/UL (150-450) L Mean Platelet Volume 9.3 FL (6.5-10.1) Neutrophils (%) (Auto) 56.3 % (45.0-75.0) Lymphocytes (%) (Auto) 38.2 % (20.0-45.0) Monocytes (%) (Auto) 3.1 % (1.0-10.0) Eosinophils (%) (Auto) 2.0 % (0.0-3.0) Basophils (%) (Auto) 0.4 % (0.0-2.0) Sodium Level 150 MMOL/L (136-145) H Potassium Level 3.3 MMOL/L (3.5-5.1) L Chloride Level 119 MMOL/L (98-107) H Carbon Dioxide Level 19 MMOL/L (21-32) L Anion Gap 12 mmol/L (5-15) Blood Urea Nitrogen 20 mg/dL (7-18) H Creatinine 1.0 MG/DL (0.55-1.30) Estimat Glomerular Filtration Rate mL/min (>60) Glucose Level 131 MG/DL (74-106) H Uric Acid 4.2 MG/DL (2.6-7.2) Calcium Level 7.0 MG/DL (8.5-10.1) L Phosphorus Level 2.8 MG/DL (2.5-4.9) Magnesium Level 2.1 MG/DL (1.8-2.4) Total Bilirubin 0.6 MG/DL (0.2-1.0) Direct Bilirubin 0.2 MG/DL (0.0-0.3) Aspartate Amino Transf (AST/SGOT) 13 U/L (15-37) L Alanine Aminotransferase (ALT/SGPT) 8 U/L (12-78) L Alkaline Phosphatase 55 U/L (46-116) Total Protein 6.2 G/DL (6.4-8.2) L Albumin 1.3 G/DL (3.4-5.0) L Objective HEENT: normocephalic, atraumatic, bilateral eye PERRL, + dry mucus membranes Neck: - JVD, no carotid bruit Respiratory: crackles bilaterally Cardiovascular: Normal S1S2, tachycardia, no murmurs, gallops or rubs. Gastrointestinal: non tender, soft, non-distended, colostomy bag in the left mid abdomen Musculoskeletal: No edema, clubbing or cyanosis. Logan Arias MD Feb 22, 2019 23:54
[2019-02-23] VITALS: BP 113/54
[2019-02-23] MEDS: Albuterol/Ipratropium 3ml neb HHN SCH ×4 (02:51→15:19)
[2019-02-23 04:00] VITALS: BP 112/55
[2019-02-23 04:27] LABS: BASOPHILS % (AUTO) 0.6 % (0.0-2.0); EOSINOPHILS % (AUTO) 1.2 % (0.0-3.0); HEMATOCRIT 30.5 % (37.0-47.0); HEMOGLOBIN 9.5 G/DL (12.0-16.0); LYMPHOCYTES % (AUTO) 41.2 % (20.0-45.0); MEAN CORPUSCULAR VOLUME 87 FL (80-99); MONOCYTES % (AUTO) 3.1 % (1.0-10.0); NEUTROPHILS % (AUTO) 53.9 % (45.0-75.0); PLATELET COUNT 151 K/UL (150-450); RED BLOOD COUNT 3.51 M/UL (4.20-5.40); RED CELL DISTRIBUTION WIDTH 15.8 % (11.6-14.8); WHITE BLOOD COUNT 8.3 K/UL (4.8-10.8)
[2019-02-23 04:53] LABS: ANION GAP 6 mmol/L (5-15); BLOOD UREA NITROGEN 31 mg/dL (7-18); CALCIUM 8.1 MG/DL (8.5-10.1); CARBON DIOXIDE 22 MMOL/L (21-32); CHLORIDE 114 MMOL/L (98-107); CREATININE 1.2 MG/DL (0.55-1.30); POTASSIUM 4.1 MMOL/L (3.5-5.1); SODIUM 142 MMOL/L (136-145)
[2019-02-23] MEDS: NovoLOG Insulin Flexpen SUBQ SCH ×2 (06:21→18:10)
--- NOTE | 2019-02-23 06:27 | General Progress Note ---
Assessment/Plan Problem List: (1) Diabetes mellitus out of control ICD Codes: E11.65 - Type 2 diabetes mellitus with hyperglycemia SNOMED: 54360517, 259808023 (2) Decubitus ulcer of sacral region, stage 4 ICD Codes: L89.154 - Pressure ulcer of sacral region, stage 4 SNOMED: 994356315, 889436794 (3) Sepsis ICD Codes: A41.9 - Sepsis, unspecified organism SNOMED: 24989117 (4) Electrolyte imbalance ICD Codes: E87.8 - Other disorders of electrolyte and fluid balance, not elsewhere classified SNOMED: 981553296 (5) Altered level of consciousness ICD Codes: R40.4 - Transient alteration of awareness SNOMED: 2570001 (6) Renal failure (ARF), acute on chronic ICD Codes: N17.9 - Acute kidney failure, unspecified; N18.9 - Chronic kidney disease, unspecified SNOMED: 514103610 (7) PEG (percutaneous endoscopic gastrostomy) status ICD Codes: Z93.1 - Gastrostomy status SNOMED: 641829162, 285918240 (8) Colostomy status ICD Codes: Z93.3 - Colostomy status SNOMED: 87433604, 045942199, 947349112 Status: progressing Assessment/Plan: continue Levemir 6 units bid continue Novolog sliding scale 4 times daily Subjective ROS Limited/Unobtainable: Yes Allergies: Coded Allergies: ALLOPURINOL (Verified Allergy, Unknown, 12/20/18) Subjective events noted glucose values are stable Item Value Date Time Bedside Blood Glucose 207 mg/dl H 02/23/19 0621 Bedside Blood Glucose 148 mg/dl H 02/22/19 2115 Bedside Blood Glucose 169 mg/dl H 02/22/19 1851 Bedside Blood Glucose 103 mg/dl 02/22/19 1130 Bedside Blood Glucose 157 mg/dl H 02/22/19 0919 Bedside Blood Glucose 157 mg/dl H 02/22/19 0630 Objective Last 24 Hour Vital Signs Date Time Temp Pulse Resp B/P (MAP) Pulse Ox O2 Delivery O2 Flow Rate FiO2 02/23/19 04:00 Nasal Cannula 2.0 02/23/19 04:00 98.5 87 19 112/55 (74) 100 02/23/19 03:34 86 02/23/19 02:40 Nasal Cannula 2.0 28 02/23/19 02:40 Nasal Cannula 2.0 28 02/23/19 00:19 75 02/23/19 00:00 Nasal Cannula 2.0 02/23/19 00:00 98.8 80 19 113/54 (73) 100 02/22/19 23:27 Nasal Cannula 2.0 28 02/22/19 23:27 Nasal Cannula 2.0 28 02/22/19 20:00 Nasal Cannula 2.0 02/22/19 20:00 98.8 73 19 113/52 (72) 100 02/22/19 20:00 74 02/22/19 19:20 Nasal Cannula 2.0 28 02/22/19 19:20 99 Nasal Cannula 2.0 28 02/22/19 19:20 Nasal Cannula 2.0 28 02/22/19 16:00 Nasal Cannula 2.0 02/22/19 15:22 80 02/22/19 14:32 Nasal Cannula 2.0 28 02/22/19 14:32 Nasal Cannula 2.0 28 02/22/19 12:00 Nasal Cannula 2.0 02/22/19 12:00 97.6 69 19 118/57 (77) 100 02/22/19 11:33 74 02/22/19 10:45 Nasal Cannula 2.0 28 02/22/19 10:45 Nasal Cannula 2.0 28 02/22/19 08:00 97.7 64 18 149/63 (91) 100 02/22/19 08:00 Nasal Cannula 2.0 02/22/19 07:49 77 02/22/19 07:05 Nasal Cannula 2.0 28 02/22/19 07:05 Nasal Cannula 2.0 02/22/19 07:05 99 Nasal Cannula 2.0 28 Intake and Output 02/22/19 02/23/19 19:00 07:00 Intake Total 1035 ml 1025 ml Output Total 1250 ml Balance -215 ml 1025 ml Free Water 150 ml 50 ml IV Total 675 ml 655 ml Tube Feeding 210 ml 320 ml Output Urine Total 1150 ml Stool Total 100 ml Laboratory Tests 02/23/19 03:10: White Blood Count 8.3, Red Blood Count 3.51L, Hemoglobin 9.5L, Hematocrit 30.5L , Mean Corpuscular Volume 87, Mean Corpuscular Hemoglobin 27.0, Mean Corpuscular Hemoglobin Concent 31.1L, Red Cell Distribution Width 15.8H, Platelet Count 151, Mean Platelet Volume 8.8, Neutrophils (%) (Auto) 53.9, Lymphocytes (%) (Auto) 41.2, Monocytes (%) (Auto) 3.1, Eosinophils (%) (Auto) 1.2, Basophils (%) (Auto) 0.6, Sodium Level 142, Potassium Level 4.1, Chloride Level 114H, Carbon Dioxide Level 22, Anion Gap 6, Blood Urea Nitrogen 31H, Creatinine 1.2, Estimat Glomerular Filtration Rate , Glucose Level 146H, Calcium Level 8.1L Height (Feet): 5 Height (Inches): 7.00 Weight (Pounds): 170 General Appearance: no apparent distress Neck: normal alignment Cardiovascular: normal rate Respiratory/Chest: decreased breath sounds Abdomen: normal bowel sounds Objective Current Medications Medications (Trade) Dose Ordered Sig/Onra Route PRN Reason Start Time Stop Time Status Last Admin Dose Admin Albuterol/ Ipratropium (Albuterol/ Ipratropium) 3 ml Q4HRT HHN 02/20/19 19:00 02/23/19 22:59 02/21/19 07:27 Aspirin (Ecotrin) 81 mg DAILY ORAL 02/21/19 09:00 03/21/19 12:29 02/22/19 09:16 Atorvastatin Calcium (Lipitor) 40 mg BEDTIME ORAL 02/20/19 21:00 03/21/19 20:59 02/22/19 21:01 Cefepime HCl 1 gm/ Sodium Chloride 55 ml @ 110 mls/hr DAILY IVPB 02/21/19 18:00 02/25/19 17:59 02/22/19 09:17 Chlorhexidine Gluconate (Valentina-Hex 2%) 1 applic DAILY@2000 TOPIC 02/20/19 20:00 03/21/19 19:59 02/22/19 20:24 Dextrose 1,000 ml @ 75 mls/hr [id number] IV 02/21/19 11:00 03/23/19 10:59 02/23/19 03:45 Dextrose (Dextrose 50%) 25 ml Q30M PRN IV Hypoglycemia 02/20/19 19:30 03/21/19 08:59 Dextrose (Dextrose 50%) 50 ml Q30M PRN IV Hypoglycemia 02/20/19 19:30 03/21/19 08:59 Insulin Aspart (NovoLOG) BEFORE MEALS AND HS SUBQ 02/20/19 21:00 03/21/19 11:29 02/23/19 06:21 Insulin Detemir (Levemir) 6 units BID SUBQ 02/21/19 09:00 03/21/19 08:59 02/22/19 18:51 Iron Sucrose 100 mg/Sodium Chloride 55 ml @ 200 mls/hr BEDTIME IV 02/21/19 21:00 02/25/19 21:17 02/22/19 21:01 Pantoprazole (Protonix) 40 mg EVERY 12 HOURS IVP 02/20/19 21:00 03/22/19 10:29 02/22/19 21:01 Pablo Day MD Feb 23, 2019 06:27
--- NOTE | 2019-02-23 07:06 | Pulmonolgy Critical Care Note ---
Critical Care - Asmt/Plan Assessment/Plan: Pulmonary CCM Progress Note HPI Patient is an 83 year old woman from [facility], history of Diabetes, admitted with alteration in mental status, very high glucose readings - now resolved Noted to have a UTI - gas bubbles at the periphery of the dome of the bladder are concerning for intramural gas consistent with emphysematous cystitis, on antiibiotics per ID No reports of vomiting or diarrhea Hypernatremia improving Stable overnight Past Medical History: Diabetes, Hypertension, Chronic Obstructive Pulmonary Disease, Dyphagia, s/p Gastrostomy Tube, Anemia, Previous CVA, previous colostomy All Other Systems: limited Physical Exam Vital Signs Noted Date Time Temp Pulse Resp B/P (MAP) Pulse Ox O2 Delivery O2 Flow Rate FiO2 02/18/19 12:08 98.1 101 24 101/82 (88) 98 Room Air General Appearance: Chronically ill appearing, altered mental status, no response to verbal command,moans with physical stimuli Head: normocephalic, atraumatic Eyes: bilateral eye PERRL ENT: no angioedema, dry mucus membranes Neck: supple, no LN Respiratory: no respiratory distress, crackles - bilaterally Cardiovascular: tachycardia, HS1, HS2, normal, RRR Gastrointestinal: non tender, soft, other - Colostomy bag noted Musculoskeletal: oupper extremity localizes towards physical stimuli, Neurologic: Significantly decreased GCS patient makes moaning sound to physical stimuli is somewhat purposeful with her upper extremity, otherwise nonverbal does not follow commands Skin: no rash, no edema Impression Severe Hyperglycemia Severe Dehydration Urinary Tract Infection Sepsis Previous Diabetes Hypertension Chronic Obstructive Pulmonary Disease Dysphagia, s/p Gastrostomy Tube Anemia Previous CVA Plan - IV Antibiotics per ID - Blood/Urine cultures - Insulin SS - IV fluids PRN - Monitor labs - Pressors PRN - HHN - O2 PRN - 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 Gas within the bladder lumen is presumably related to Agarwal catheter. However, gas bubbles at the periphery of the dome of the bladder are concerning for intramural gas consistent with emphysematous cystitis. Positive for tiny right distal ureteral calculus resulting in moderate right hydronephrosis and hydroureter Bilateral intrarenal calculi Extensive retrosacral/retrococcygeal decubitus changes. Correlate with clinical findings. 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 CXR: Nil acute Critical Care - Objective Last 24 Hour Vital Signs Date Time Temp Pulse Resp B/P (MAP) Pulse Ox O2 Delivery O2 Flow Rate FiO2 02/23/19 04:00 Nasal Cannula 2.0 02/23/19 04:00 98.5 87 19 112/55 (74) 100 02/23/19 03:34 86 02/23/19 02:40 Nasal Cannula 2.0 28 02/23/19 02:40 Nasal Cannula 2.0 28 02/23/19 00:19 75 02/23/19 00:00 Nasal Cannula 2.0 02/23/19 00:00 98.8 80 19 113/54 (73) 100 02/22/19 23:27 Nasal Cannula 2.0 28 02/22/19 23:27 Nasal Cannula 2.0 28 02/22/19 20:00 Nasal Cannula 2.0 02/22/19 20:00 98.8 73 19 113/52 (72) 100 02/22/19 20:00 74 02/22/19 19:20 Nasal Cannula 2.0 28 02/22/19 19:20 99 Nasal Cannula 2.0 28 02/22/19 19:20 Nasal Cannula 2.0 28 02/22/19 16:00 Nasal Cannula 2.0 02/22/19 15:22 80 02/22/19 14:32 Nasal Cannula 2.0 28 02/22/19 14:32 Nasal Cannula 2.0 28 02/22/19 12:00 Nasal Cannula 2.0 02/22/19 12:00 97.6 69 19 118/57 (77) 100 02/22/19 11:33 74 02/22/19 10:45 Nasal Cannula 2.0 28 02/22/19 10:45 Nasal Cannula 2.0 28 02/22/19 08:00 97.7 64 18 149/63 (91) 100 02/22/19 08:00 Nasal Cannula 2.0 02/22/19 07:49 77 Accucheck: 207 Critical Care - Subjective ROS Limited/Unobtainable: No FI02: 28 Sputum Amount: None Tube Feeding Amount: 40 I&O: Intake and Output 02/22/19 02/23/19 19:00 07:00 Intake Total 1035 ml 1310 ml Output Total 1250 ml Balance -215 ml 1310 ml Free Water 150 ml 50 ml IV Total 675 ml 820 ml Tube Feeding 210 ml 440 ml Output Urine Total 1150 ml Stool Total 100 ml Minh Dunbar MD Feb 23, 2019 07:06
--- NOTE | 2019-02-23 07:30 | NUR ---
HAND-OFF: Report given to HELEN Hinton. Pt is resting on the bed and no sign of acute distress noted.
--- NOTE | 2019-02-23 07:36 | NUR ---
NURSE NOTES: Pt awake/O x name, in bed, breathing easily on room air, denies SOB and denies pain at this time. Vital signs stable with SR @ 86 on monitor. IV access right hand, attempt to flush with NS, pt c/o pain, stopped and locked. Right fem triple with D5 @ 75 ml/hr, second lumen with NS @ TKO and third lumen flushed with 10 ml NS and locked. G-tube in place, with Glu 1.2 running at 30 ml/hr, 10 ml residual, given 50 ml free water flush. . Agarwal cath in place, patent and draining clear yellow urine into collection bag at foot of bed. Colostomy bag LLQ, intact with light brown, semi-liquid draining. Low air loss mattress overlay in place and running. SCD in place on left leg only and running. Bed left in low position, side rails up x 3, exit alarm set and call light left near pt's hand. Addendum: 02/23/19 at 0756 by AGATA MCDONOUGH RN Pt is on 2 lpm nasal cannula
[2019-02-23 08:00] VITALS: BP 106/54
[2019-02-23 08:47] LABS: ALANINE AMINOTRANSFERASE 9 U/L (12-78); ALBUMIN 1.5 G/DL (3.4-5.0); ALKALINE PHOSPHATASE 70 U/L (46-116); ASPARTATE AMINO TRANSFERASE 15 U/L (15-37); BILIRUBIN,DIRECT 0.1 MG/DL (0.0-0.3); BILIRUBIN,TOTAL 0.4 MG/DL (0.2-1.0); PHOSPHORUS 2.2 MG/DL (2.5-4.9)
[2019-02-23] MEDS: Aspirin EC 81mg tab ORAL SCH (08:53)
[2019-02-23] MEDS: Cefepime HCl 1 GM in NS 55 ML IVPB SCH (08:53)
[2019-02-23] MEDS: Pantoprazole Inj IVP SCH (08:53)
[2019-02-23] MEDS: Levemir Flexpen SUBQ SCH ×2 (08:56→18:11)
--- NOTE | 2019-02-23 11:51 | Infectious Diseases Prog Note ---
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 RECOMMENDATION: We will continue with cefepime According to surgeon wound is not likely the source of infection Wound care Subjective ROS Limited/Unobtainable: Yes Allergies: Coded Allergies: ALLOPURINOL (Verified Allergy, Unknown, 12/20/18) Objective Vital Signs Last 24 Hour Vital Signs Date Time Temp Pulse Resp B/P (MAP) Pulse Ox O2 Delivery O2 Flow Rate FiO2 02/23/19 08:00 86 02/23/19 08:00 98.1 84 16 106/54 (71) 96 02/23/19 08:00 84 20 100 Nasal Cannula 2.0 02/23/19 07:50 99 Nasal Cannula 2.0 02/23/19 07:50 86 20 99 Nasal Cannula 2.0 28 02/23/19 07:46 Nasal Cannula 2.0 02/23/19 04:00 Nasal Cannula 2.0 02/23/19 04:00 98.5 87 19 112/55 (74) 100 02/23/19 03:34 86 02/23/19 02:40 Nasal Cannula 2.0 02/23/19 02:40 Nasal Cannula 2.0 28 02/23/19 00:19 75 02/23/19 00:00 Nasal Cannula 2.0 02/23/19 00:00 98.8 80 19 113/54 (73) 100 02/22/19 23:27 Nasal Cannula 2.0 28 02/22/19 23:27 Nasal Cannula 2.0 28 02/22/19 20:00 Nasal Cannula 2.0 02/22/19 20:00 98.8 73 19 113/52 (72) 100 02/22/19 20:00 74 02/22/19 19:20 Nasal Cannula 2.0 28 02/22/19 19:20 99 Nasal Cannula 2.0 28 02/22/19 19:20 Nasal Cannula 2.0 28 02/22/19 16:00 Nasal Cannula 2.0 02/22/19 15:22 80 02/22/19 14:32 Nasal Cannula 2.0 02/22/19 14:32 Nasal Cannula 2.0 28 02/22/19 12:00 Nasal Cannula 2.0 02/22/19 12:00 97.6 69 19 118/57 (77) 100 Height (Feet): 5 Height (Inches): 7.00 Weight (Pounds): 170 HEENT: mucous membranes moist Respiratory/Chest: lungs clear Cardiovascular: normal rate, other - R femoral line Abdomen: soft, non tender, other - GT feeding, s/p colostomy Extremities: no edema Skin: ulcers, other - sacral stage 4 Neurologic/Psychiatric: other - sleeping Laboratory Tests Test 02/23/19 03:10 White Blood Count 8.3 K/UL (4.8-10.8) Red Blood Count 3.51 M/UL (4.20-5.40) L Hemoglobin 9.5 G/DL (12.0-16.0) L Hematocrit 30.5 % (37.0-47.0) L Mean Corpuscular Volume 87 FL (80-99) Mean Corpuscular Hemoglobin 27.0 PG (27.0-31.0) Mean Corpuscular Hemoglobin Concent 31.1 G/DL (32.0-36.0) L Red Cell Distribution Width 15.8 % (11.6-14.8) H Platelet Count 151 K/UL (150-450) Mean Platelet Volume 8.8 FL (6.5-10.1) Neutrophils (%) (Auto) 53.9 % (45.0-75.0) Lymphocytes (%) (Auto) 41.2 % (20.0-45.0) Monocytes (%) (Auto) 3.1 % (1.0-10.0) Eosinophils (%) (Auto) 1.2 % (0.0-3.0) Basophils (%) (Auto) 0.6 % (0.0-2.0) Sodium Level 142 MMOL/L (136-145) Potassium Level 4.1 MMOL/L (3.5-5.1) Chloride Level 114 MMOL/L (98-107) H Carbon Dioxide Level 22 MMOL/L (21-32) Anion Gap 6 mmol/L (5-15) Blood Urea Nitrogen 31 mg/dL (7-18) H Creatinine 1.2 MG/DL (0.55-1.30) Estimat Glomerular Filtration Rate mL/min (>60) Glucose Level 146 MG/DL (74-106) H Calcium Level 8.1 MG/DL (8.5-10.1) L Phosphorus Level 2.2 MG/DL (2.5-4.9) L Magnesium Level 2.2 MG/DL (1.8-2.4) Total Bilirubin 0.4 MG/DL (0.2-1.0) Direct Bilirubin 0.1 MG/DL (0.0-0.3) Aspartate Amino Transf (AST/SGOT) 15 U/L (15-37) Alanine Aminotransferase (ALT/SGPT) 9 U/L (12-78) L Alkaline Phosphatase 70 U/L (46-116) Total Protein 7.2 G/DL (6.4-8.2) Albumin 1.5 G/DL (3.4-5.0) L Current Medications Medications (Trade) Dose Ordered Sig/Nora Route PRN Reason Start Time Stop Time Status Last Admin Dose Admin Albuterol/ Ipratropium (Albuterol/ Ipratropium) 3 ml Q4HRT HHN 02/20/19 19:00 02/23/19 22:59 02/23/19 07:54 Aspirin (Ecotrin) 81 mg DAILY ORAL 02/21/19 09:00 03/21/19 12:29 02/23/19 08:53 Atorvastatin Calcium (Lipitor) 40 mg BEDTIME ORAL 02/20/19 21:00 03/21/19 20:59 02/22/19 21:01 Cefepime HCl 1 gm/ Sodium Chloride 55 ml @ 110 mls/hr DAILY IVPB 02/21/19 18:00 02/25/19 17:59 02/23/19 08:53 Chlorhexidine Gluconate (Valentina-Hex 2%) 1 applic DAILY@2000 TOPIC 02/20/19 20:00 03/21/19 19:59 02/22/19 20:24 Dextrose 1,000 ml @ 75 mls/hr [id number] IV 02/21/19 11:00 03/23/19 10:59 02/23/19 03:45 Dextrose (Dextrose 50%) 25 ml Q30M PRN IV Hypoglycemia 02/20/19 19:30 03/21/19 08:59 Dextrose (Dextrose 50%) 50 ml Q30M PRN IV Hypoglycemia 02/20/19 19:30 03/21/19 08:59 Insulin Aspart (NovoLOG) EVERY 6 HOURS SUBQ 02/23/19 12:00 03/21/19 11:29 Insulin Detemir (Levemir) 6 units BID SUBQ 02/21/19 09:00 03/21/19 08:59 02/23/19 08:56 Iron Sucrose 100 mg/Sodium Chloride 55 ml @ 200 mls/hr BEDTIME IV 02/21/19 21:00 02/25/19 21:17 02/22/19 21:01 Pantoprazole (Protonix) 40 mg EVERY 12 HOURS IVP 02/20/19 21:00 03/22/19 10:29 02/23/19 08:53 Roland Navarro MD Feb 23, 2019 11:51
[2019-02-23 12:00] VITALS: BP 107/59
[2019-02-23] MEDS ORDERED: NovoLOG Insulin Flexpen SUBQ SCH (12:00)
--- NOTE | 2019-02-23 12:23 | NUR ---
NURSE NOTES: Femoral line removed per Dr Walden, having established a patent peripheral line. Direct pressure held for 7 minutes by the clock. Pressure bandage applied, no sign of any bleeding.
--- NOTE | 2019-02-23 12:26 | General Progress Note ---
Assessment/Plan Status: progressing Assessment/Plan: (1) Electrolyte imbalance ICD Codes: E87.8 - Other disorders of electrolyte and fluid balance, not elsewhere classified SNOMED: 902797140 (2) Sepsis ICD Codes: A41.9 - Sepsis, unspecified organism SNOMED: 54641086 (3) Decubitus ulcer of sacral region, stage 4 ICD Codes: L89.154 - Pressure ulcer of sacral region, stage 4 SNOMED: 260402969, 394236586 (4) Altered level of consciousness ICD Codes: R40.4 - Transient alteration of awareness SNOMED: 3195760 (5) Renal failure (ARF), acute on chronic ICD Codes: N17.9 - Acute kidney failure, unspecified; N18.9 - Chronic kidney disease, unspecified SNOMED: 402095082 (6) Hypotension ICD Codes: I95.9 - Hypotension, unspecified SNOMED: 20236540 (7) Anemia ICD Codes: D64.9 - Anemia, unspecified SNOMED: 653094354 (8) Colostomy status ICD Codes: Z93.3 - Colostomy status SNOMED: 26105887, 865494218, 637311363 (9) PEG (percutaneous endoscopic gastrostomy) status ICD Codes: Z93.1 - Gastrostomy status SNOMED: 808064486, 220758572 Status: progressing Status Narrative Discussed with Dr. Vora. Assessment/Plan AMS G Tube dependent colostomy dependent hypernatremia no plans for GI procedures at this time, only if emergent start GTFs low rate electrolyte correction anemia work up OB stool r/o GI bleed monitor H&H, prn transfusions bowel regimen ppi hold iron supplementation given elevated ferritin levels GT/colostomy site care fu labs Subjective ROS Limited/Unobtainable: No Allergies: Coded Allergies: ALLOPURINOL (Verified Allergy, Unknown, 12/20/18) Objective Last 24 Hour Vital Signs Date Time Temp Pulse Resp B/P (MAP) Pulse Ox O2 Delivery O2 Flow Rate FiO2 02/23/19 12:21 80 20 99 Nasal Cannula 2.0 28 02/23/19 12:04 77 20 98 Nasal Cannula 2.0 28 02/23/19 08:00 86 02/23/19 08:00 98.1 84 16 106/54 (71) 96 02/23/19 08:00 84 20 100 Nasal Cannula 2.0 28 02/23/19 07:50 99 Nasal Cannula 2.0 28 02/23/19 07:50 86 20 99 Nasal Cannula 2.0 28 02/23/19 07:46 Nasal Cannula 2.0 02/23/19 04:00 Nasal Cannula 2.0 02/23/19 04:00 98.5 87 19 112/55 (74) 100 02/23/19 03:34 86 02/23/19 02:40 Nasal Cannula 2.0 28 02/23/19 02:40 Nasal Cannula 2.0 28 02/23/19 00:19 75 02/23/19 00:00 Nasal Cannula 2.0 02/23/19 00:00 98.8 80 19 113/54 (73) 100 02/22/19 23:27 Nasal Cannula 2.0 28 02/22/19 23:27 Nasal Cannula 2.0 28 02/22/19 20:00 Nasal Cannula 2.0 02/22/19 20:00 98.8 73 19 113/52 (72) 100 02/22/19 20:00 74 02/22/19 19:20 Nasal Cannula 2.0 28 02/22/19 19:20 99 Nasal Cannula 2.0 28 02/22/19 19:20 Nasal Cannula 2.0 28 02/22/19 16:00 Nasal Cannula 2.0 02/22/19 15:22 80 02/22/19 14:32 Nasal Cannula 2.0 02/22/19 14:32 Nasal Cannula 2.0 28 Intake and Output 02/22/19 02/23/19 18:59 06:59 Intake Total 1005 ml 1415 ml Output Total 1250 ml Balance -245 ml 1415 ml Free Water 150 ml 50 ml IV Total 675 ml 895 ml Tube Feeding 180 ml 470 ml Output Urine Total 1150 ml Stool Total 100 ml Laboratory Tests 02/23/19 03:10: White Blood Count 8.3, Red Blood Count 3.51L, Hemoglobin 9.5L, Hematocrit 30.5L , Mean Corpuscular Volume 87, Mean Corpuscular Hemoglobin 27.0, Mean Corpuscular Hemoglobin Concent 31.1L, Red Cell Distribution Width 15.8H, Platelet Count 151, Mean Platelet Volume 8.8, Neutrophils (%) (Auto) 53.9, Lymphocytes (%) (Auto) 41.2, Monocytes (%) (Auto) 3.1, Eosinophils (%) (Auto) 1.2, Basophils (%) (Auto) 0.6, Sodium Level 142, Potassium Level 4.1, Chloride Level 114H, Carbon Dioxide Level 22, Anion Gap 6, Blood Urea Nitrogen 31H, Creatinine 1.2, Estimat Glomerular Filtration Rate , Glucose Level 146H, Calcium Level 8.1L, Phosphorus Level 2.2L, Magnesium Level 2.2, Total Bilirubin 0.4, Direct Bilirubin 0.1, Aspartate Amino Transf (AST/SGOT) 15, Alanine Aminotransferase (ALT/SGPT) 9L, Alkaline Phosphatase 70, Total Protein 7.2, Albumin 1.5L Height (Feet): 5 Height (Inches): 7.00 Weight (Pounds): 170 General Appearance: no apparent distress EENT: normal ENT inspection Neck: supple Cardiovascular: normal rate Respiratory/Chest: decreased breath sounds Abdomen: normal bowel sounds, non tender, soft Extremities: non-tender Horacio Vora MD Feb 23, 2019 12:26
--- NOTE | 2019-02-23 12:45 | Nephrology Progress Note ---
Assessment/Plan Problem List: (1) Renal failure (ARF), acute on chronic (2) Hypotension (3) Anemia (4) Colostomy status (5) PEG (percutaneous endoscopic gastrostomy) status (6) Electrolyte imbalance Assessment Acute renal failure ? Underlying CKD Severe Dehydration Hyperglycemia- DM OOC A1c High Severe underlying Anemia Electrolyte imbalance UTI PEG Colostomy Severe HypoAlbuminemia Plan Plan; K and Phos and Mag supplement as needed D5W Hydrate Glucose check Albumin bolus as needed K mag Phos supplement as needed monitor lytes, and H&H Per orders Subjective ROS Limited/Unobtainable: No Objective Objective Last 24 Hour Vital Signs Date Time Temp Pulse Resp B/P (MAP) Pulse Ox O2 Delivery O2 Flow Rate FiO2 02/23/19 12:21 80 20 99 Nasal Cannula 2.0 28 02/23/19 12:04 77 20 98 Nasal Cannula 2.0 28 02/23/19 12:00 98.3 101 17 107/59 (75) 98 02/23/19 12:00 89 02/23/19 12:00 Nasal Cannula 2.0 02/23/19 08:00 86 02/23/19 08:00 98.1 84 16 106/54 (71) 96 02/23/19 08:00 84 20 100 Nasal Cannula 2.0 28 02/23/19 07:50 99 Nasal Cannula 2.0 28 02/23/19 07:50 86 20 99 Nasal Cannula 2.0 28 02/23/19 07:46 Nasal Cannula 2.0 02/23/19 04:00 Nasal Cannula 2.0 02/23/19 04:00 98.5 87 19 112/55 (74) 100 02/23/19 03:34 86 02/23/19 02:40 Nasal Cannula 2.0 28 02/23/19 02:40 Nasal Cannula 2.0 28 02/23/19 00:19 75 02/23/19 00:00 Nasal Cannula 2.0 02/23/19 00:00 98.8 80 19 113/54 (73) 100 02/22/19 23:27 Nasal Cannula 2.0 28 02/22/19 23:27 Nasal Cannula 2.0 28 02/22/19 20:00 Nasal Cannula 2.0 02/22/19 20:00 98.8 73 19 113/52 (72) 100 02/22/19 20:00 74 02/22/19 19:20 Nasal Cannula 2.0 28 02/22/19 19:20 99 Nasal Cannula 2.0 28 02/22/19 19:20 Nasal Cannula 2.0 02/22/19 16:00 Nasal Cannula 2.0 02/22/19 15:22 80 02/22/19 14:32 Nasal Cannula 2.0 28 02/22/19 14:32 Nasal Cannula 2.0 28 Intake and Output 02/22/19 02/23/19 18:59 06:59 Intake Total 1005 ml 1415 ml Output Total 1250 ml Balance -245 ml 1415 ml Free Water 150 ml 50 ml IV Total 675 ml 895 ml Tube Feeding 180 ml 470 ml Output Urine Total 1150 ml Stool Total 100 ml Laboratory Tests 02/23/19 03:10: White Blood Count 8.3, Red Blood Count 3.51L, Hemoglobin 9.5L, Hematocrit 30.5L , Mean Corpuscular Volume 87, Mean Corpuscular Hemoglobin 27.0, Mean Corpuscular Hemoglobin Concent 31.1L, Red Cell Distribution Width 15.8H, Platelet Count 151, Mean Platelet Volume 8.8, Neutrophils (%) (Auto) 53.9, Lymphocytes (%) (Auto) 41.2, Monocytes (%) (Auto) 3.1, Eosinophils (%) (Auto) 1.2, Basophils (%) (Auto) 0.6, Sodium Level 142, Potassium Level 4.1, Chloride Level 114H, Carbon Dioxide Level 22, Anion Gap 6, Blood Urea Nitrogen 31H, Creatinine 1.2, Estimat Glomerular Filtration Rate , Glucose Level 146H, Calcium Level 8.1L, Phosphorus Level 2.2L, Magnesium Level 2.2, Total Bilirubin 0.4, Direct Bilirubin 0.1, Aspartate Amino Transf (AST/SGOT) 15, Alanine Aminotransferase (ALT/SGPT) 9L, Alkaline Phosphatase 70, Total Protein 7.2, Albumin 1.5L Height (Feet): 5 Height (Inches): 7.00 Weight (Pounds): 170 General Appearance: no apparent distress, lethargic Cardiovascular: normal rate Respiratory/Chest: decreased breath sounds Abdomen: distended Servando Cifuentes MD Feb 23, 2019 12:45
--- NOTE | 2019-02-23 12:56 | Surgery Progress Note ---
Surgery Progress Note Subjective Additional Comments no acute events dressings being changed exam stable if not improved labs noted Objective Last 24 Hour Vital Signs Date Time Temp Pulse Resp B/P (MAP) Pulse Ox O2 Delivery O2 Flow Rate FiO2 02/23/19 12:21 80 20 99 Nasal Cannula 2.0 28 02/23/19 12:04 77 20 98 Nasal Cannula 2.0 28 02/23/19 12:00 98.3 101 17 107/59 (75) 98 02/23/19 12:00 89 02/23/19 12:00 Nasal Cannula 2.0 02/23/19 08:00 86 02/23/19 08:00 98.1 84 16 106/54 (71) 96 02/23/19 08:00 84 20 100 Nasal Cannula 2.0 28 02/23/19 07:50 99 Nasal Cannula 2.0 28 02/23/19 07:50 86 20 99 Nasal Cannula 2.0 28 02/23/19 07:46 Nasal Cannula 2.0 02/23/19 04:00 Nasal Cannula 2.0 02/23/19 04:00 98.5 87 19 112/55 (74) 100 02/23/19 03:34 86 02/23/19 02:40 Nasal Cannula 2.0 28 02/23/19 02:40 Nasal Cannula 2.0 28 02/23/19 00:19 75 02/23/19 00:00 Nasal Cannula 2.0 02/23/19 00:00 98.8 80 19 113/54 (73) 100 02/22/19 23:27 Nasal Cannula 2.0 28 02/22/19 23:27 Nasal Cannula 2.0 28 02/22/19 20:00 Nasal Cannula 2.0 02/22/19 20:00 98.8 73 19 113/52 (72) 100 02/22/19 20:00 74 02/22/19 19:20 Nasal Cannula 2.0 28 02/22/19 19:20 99 Nasal Cannula 2.0 28 02/22/19 19:20 Nasal Cannula 2.0 28 02/22/19 16:00 Nasal Cannula 2.0 02/22/19 15:22 80 02/22/19 14:32 Nasal Cannula 2.0 28 02/22/19 14:32 Nasal Cannula 2.0 28 I&O Intake and Output 02/22/19 02/23/19 18:59 06:59 Intake Total 1005 ml 1415 ml Output Total 1250 ml Balance -245 ml 1415 ml Free Water 150 ml 50 ml IV Total 675 ml 895 ml Tube Feeding 180 ml 470 ml Output Urine Total 1150 ml Stool Total 100 ml Dressing: saturated Wound: clean Cardiovascular: RSR Respiratory: clear, decreased breath sounds Abdomen: soft, present bowel sounds, other, non-distended Extremities: no cyanosis Laboratory Tests Test 02/23/19 03:10 White Blood Count 8.3 K/UL (4.8-10.8) Red Blood Count 3.51 M/UL (4.20-5.40) L Hemoglobin 9.5 G/DL (12.0-16.0) L Hematocrit 30.5 % (37.0-47.0) L Mean Corpuscular Volume 87 FL (80-99) Mean Corpuscular Hemoglobin 27.0 PG (27.0-31.0) Mean Corpuscular Hemoglobin Concent 31.1 G/DL (32.0-36.0) L Red Cell Distribution Width 15.8 % (11.6-14.8) H Platelet Count 151 K/UL (150-450) Mean Platelet Volume 8.8 FL (6.5-10.1) Neutrophils (%) (Auto) 53.9 % (45.0-75.0) Lymphocytes (%) (Auto) 41.2 % (20.0-45.0) Monocytes (%) (Auto) 3.1 % (1.0-10.0) Eosinophils (%) (Auto) 1.2 % (0.0-3.0) Basophils (%) (Auto) 0.6 % (0.0-2.0) Sodium Level 142 MMOL/L (136-145) Potassium Level 4.1 MMOL/L (3.5-5.1) Chloride Level 114 MMOL/L (98-107) H Carbon Dioxide Level 22 MMOL/L (21-32) Anion Gap 6 mmol/L (5-15) Blood Urea Nitrogen 31 mg/dL (7-18) H Creatinine 1.2 MG/DL (0.55-1.30) Estimat Glomerular Filtration Rate mL/min (>60) Glucose Level 146 MG/DL (74-106) H Calcium Level 8.1 MG/DL (8.5-10.1) L Phosphorus Level 2.2 MG/DL (2.5-4.9) L Magnesium Level 2.2 MG/DL (1.8-2.4) Total Bilirubin 0.4 MG/DL (0.2-1.0) Direct Bilirubin 0.1 MG/DL (0.0-0.3) Aspartate Amino Transf (AST/SGOT) 15 U/L (15-37) Alanine Aminotransferase (ALT/SGPT) 9 U/L (12-78) L Alkaline Phosphatase 70 U/L (46-116) Total Protein 7.2 G/DL (6.4-8.2) Albumin 1.5 G/DL (3.4-5.0) L Plan Problems: (1) Decubitus ulcer of sacral region, stage 4 Assessment & Plan: Pt presented on admission with full thickness stage 4 Sacral Pressure Injury with undermining. Bone is palpable. Base of has beefy red granulation with scattered small purple areas. No odor noted .Scant serous exudate noted . Edges pink and flat with some sloth. DTPI noted to lateral R foot. .Base of wound purple and fluctuant in center with surrounding maroon discoloration Non-blanchable erythema with fluctuance noted to posterior and medial R heel. L heel boggy but blanchable. Tx.Plan: Cleanse Sacral wound with Saline. Loosely pack with Hydrogel Impregnated Kerlix. Cover with ABD pads and secure with Paper Tape or Tegaderm Daily and prn. Apply Cavilon Skin Barrier to R and Heel and lateral R heel. Ciover with Optifoam drsg. Change every 7 days and PRN. Apply Cavilon Skin Barrier to L heel. Cover with Optifoam drsg. Change every 7 days and prn. APM/VIJI Mattress Overlay. Reposition at least every 2hours or as tolerated. Off-load heels with Pillow. (2) Sepsis Assessment & Plan: tachycardia, leukocytosis, anemia, abnormal labs, altered status wound evaluate and tho not as optimal as prior unlikely etiology of infection IV abx as per ID care orders as below trend labs will follow with recs thank you Mauro Morrow Feb 23, 2019 12:56
--- NOTE | 2019-02-23 14:26 | Hematology/Onc Progress Note ---
Assessment/Plan Assessment/Plan Assessment and Recs: # Anemia of chronic disease due to underlying chronic medical issues, multifactorial, ferritin 366, tibc 144 --> Anemia workup has been reviewed --> No evidence of hemolysis is noted, peripheral smear has been reviewed. --> Hgb goal >7. Transfuse prn. -->Iron iv is okay x 5 days total --> Medications have been reviewed --> low threshold for gi evaluation in case has occult + --> Hgb trend:>8.4-->8-->7.3-->7.7-->8.7-->9.5 --> tolerated 1 unit on 02/22 # Recanalized dvt of the right lower extremity --> given it has healed/recanalized, is not acute okay for just heparin prophylactic dosing --> continue heparin sq bid dosing once hgb >8 # Leukocytosis/elevated white blood cell count, is due to underlying sepsis urine infection+ --> Currently resolved --> ID is following, appreciate recs --> have reviewed peripheral smear and bandemia/neutrophilia noted --> continue antibiotics per ID cefepime/vanc --> monitor for resolution --> trend 17.4-->11.2-->8.3 -->12-->8.6-->8.2 # Respiratory failure with hypoxia --> Currently on NC 12/28 --> pulm eval --> prior intubation 12/2018 # Sacral decubitus ulcer, stage IV --> per surg, wound care # HCAP (healthcare-associated pneumonia) --> sp abx # ARF (acute renal failure) --> per renal # Hyperglycemia due to type 2 diabetes mellitus --> per endo # Acute metabolic encephalopathy # Severe dehydration # DVT pxx with scds now The timing of this note does not necessarily reflect the time of the patient was seen. Subjective Hematologic/Lymphatic: Reports: anemia Allergies: Coded Allergies: ALLOPURINOL (Verified Allergy, Unknown, 12/20/18) All Systems: reviewed and negative except above Subjective 02/19: icu, labs reviewed, bs is better today, on abx 02/20: on cefepime and have discontinued vanc, no bleeding noted, hgb reviewed 02/21: on abx, vs stable, denies pain, no distress 02/22: no events, potential dc to snf, pending clearance, gtube dependent 02/23: on nc, femoral line removed, on abx Objective Objective Current Medications Medications (Trade) Dose Ordered Sig/Nora Route PRN Reason Start Time Stop Time Status Last Admin Dose Admin Albuterol/ Ipratropium (Albuterol/ Ipratropium) 3 ml Q4HRT HHN 02/20/19 19:00 02/23/19 22:59 02/23/19 12:07 Aspirin (Ecotrin) 81 mg DAILY ORAL 02/21/19 09:00 03/21/19 12:29 02/23/19 08:53 Atorvastatin Calcium (Lipitor) 40 mg BEDTIME ORAL 02/20/19 21:00 03/21/19 20:59 02/22/19 21:01 Cefepime HCl 1 gm/ Sodium Chloride 55 ml @ 110 mls/hr DAILY IVPB 02/21/19 18:00 02/25/19 17:59 02/23/19 08:53 Chlorhexidine Gluconate (Valentina-Hex 2%) 1 applic DAILY@2000 TOPIC 02/20/19 20:00 03/21/19 19:59 02/22/19 20:24 Dextrose 1,000 ml @ 75 mls/hr [id number] IV 02/21/19 11:00 03/23/19 10:59 02/23/19 03:45 Dextrose (Dextrose 50%) 25 ml Q30M PRN IV Hypoglycemia 02/20/19 19:30 03/21/19 08:59 Dextrose (Dextrose 50%) 50 ml Q30M PRN IV Hypoglycemia 02/20/19 19:30 03/21/19 08:59 Insulin Aspart (NovoLOG) EVERY 6 HOURS SUBQ 02/23/19 12:00 03/21/19 11:29 02/23/19 13:29 Insulin Detemir (Levemir) 6 units BID SUBQ 02/21/19 09:00 03/21/19 08:59 02/23/19 08:56 Iron Sucrose 100 mg/Sodium Chloride 55 ml @ 200 mls/hr BEDTIME IV 02/21/19 21:00 02/25/19 21:17 02/22/19 21:01 Lansoprazole (Prevacid) 30 mg BID GT 02/23/19 18:00 03/25/19 17:59 Olanzapine (ZyPREXA) 2.5 mg BEDTIME ORAL 02/23/19 21:00 03/25/19 20:59 UNV Last 24 Hour Vital Signs Date Time Temp Pulse Resp B/P (MAP) Pulse Ox O2 Delivery O2 Flow Rate FiO2 02/23/19 12:21 80 20 99 Nasal Cannula 2.0 28 02/23/19 12:04 77 20 98 Nasal Cannula 2.0 28 02/23/19 12:00 98.3 101 17 107/59 (75) 98 02/23/19 12:00 89 02/23/19 12:00 Nasal Cannula 2.0 02/23/19 08:00 86 02/23/19 08:00 98.1 84 16 106/54 (71) 96 02/23/19 08:00 84 20 100 Nasal Cannula 2.0 28 02/23/19 07:50 99 Nasal Cannula 2.0 28 02/23/19 07:50 86 20 99 Nasal Cannula 2.0 28 02/23/19 07:46 Nasal Cannula 2.0 02/23/19 04:00 Nasal Cannula 2.0 02/23/19 04:00 98.5 87 19 112/55 (74) 100 02/23/19 03:34 86 02/23/19 02:40 Nasal Cannula 2.0 02/23/19 02:40 Nasal Cannula 2.0 28 02/23/19 00:19 75 02/23/19 00:00 Nasal Cannula 2.0 02/23/19 00:00 98.8 80 19 113/54 (73) 100 02/22/19 23:27 Nasal Cannula 2.0 02/22/19 23:27 Nasal Cannula 2.0 28 02/22/19 20:00 Nasal Cannula 2.0 02/22/19 20:00 98.8 73 19 113/52 (72) 100 02/22/19 20:00 74 02/22/19 19:20 Nasal Cannula 2.0 28 02/22/19 19:20 99 Nasal Cannula 2.0 28 02/22/19 19:20 Nasal Cannula 2.0 28 02/22/19 16:00 Nasal Cannula 2.0 02/22/19 15:22 80 02/22/19 14:32 Nasal Cannula 2.0 02/22/19 14:32 Nasal Cannula 2.0 28 02/22/19 12:00 Nasal Cannula 2.0 02/22/19 12:00 97.6 69 19 118/57 (77) 100 02/22/19 11:33 74 02/22/19 10:45 Nasal Cannula 2.0 28 02/22/19 10:45 Nasal Cannula 2.0 28 02/22/19 08:00 97.7 64 18 149/63 (91) 100 02/22/19 08:00 Nasal Cannula 2.0 02/22/19 07:49 77 02/22/19 07:05 Nasal Cannula 2.0 28 02/22/19 07:05 Nasal Cannula 2.0 28 02/22/19 07:05 99 Nasal Cannula 2.0 28 02/22/19 04:00 Nasal Cannula 2.0 02/22/19 04:00 97.9 71 22 117/74 (88) 100 02/22/19 04:00 75 02/22/19 03:15 Nasal Cannula 02/22/19 03:12 Nasal Cannula 2.0 28 02/22/19 00:00 72 02/22/19 00:00 Nasal Cannula 2.0 02/22/19 00:00 98.4 71 20 109/57 (74) 100 02/21/19 23:08 Nasal Cannula 02/21/19 23:08 Nasal Cannula 2.0 02/21/19 20:10 98.2 68 20 115/34 (61) 100 02/21/19 20:00 69 02/21/19 20:00 Nasal Cannula 2.0 02/21/19 19:56 Nasal Cannula 02/21/19 19:55 67 20 99 Nasal Cannula 2.0 28 02/21/19 19:55 98 Nasal Cannula 2.0 28 02/21/19 16:00 74 02/21/19 16:00 98.4 72 18 114/60 (78) 99 02/21/19 16:00 Nasal Cannula 2.0 02/21/19 15:00 Nasal Cannula 2.0 28 02/21/19 15:00 Nasal Cannula Intake and Output 02/22/19 02/23/19 18:59 06:59 Intake Total 1005 ml 1415 ml Output Total 1250 ml Balance -245 ml 1415 ml Free Water 150 ml 50 ml IV Total 675 ml 895 ml Tube Feeding 180 ml 470 ml Output Urine Total 1150 ml Stool Total 100 ml Labs Test 02/21/19 04:00 02/22/19 04:30 02/23/19 03:10 White Blood Count 8.6 K/UL (4.8-10.8) 7.4 K/UL (4.8-10.8) 8.3 K/UL (4.8-10.8) Red Blood Count 2.85 M/UL (4.20-5.40) 3.23 M/UL (4.20-5.40) 3.51 M/UL (4.20-5.40) Hemoglobin 7.7 G/DL (12.0-16.0) 8.7 G/DL (12.0-16.0) 9.5 G/DL (12.0-16.0) Hematocrit 25.4 % (37.0-47.0) 28.3 % (37.0-47.0) 30.5 % (37.0-47.0) Mean Corpuscular Volume 89 FL (80-99) 87 FL (80-99) 87 FL (80-99) Mean Corpuscular Hemoglobin 27.2 PG (27.0-31.0) 27.0 PG (27.0-31.0) 27.0 PG (27.0-31.0) Mean Corpuscular Hemoglobin Concent 30.5 G/DL (32.0-36.0) 30.9 G/DL (32.0-36.0) 31.1 G/DL (32.0-36.0) Red Cell Distribution Width 16.5 % (11.6-14.8) 16.0 % (11.6-14.8) 15.8 % (11.6-14.8) Platelet Count 162 K/UL (150-450) 147 K/UL (150-450) 151 K/UL (150-450) Mean Platelet Volume 8.8 FL (6.5-10.1) 9.3 FL (6.5-10.1) 8.8 FL (6.5-10.1) Neutrophils (%) (Auto) % (45.0-75.0) 56.3 % (45.0-75.0) 53.9 % (45.0-75.0) Lymphocytes (%) (Auto) % (20.0-45.0) 38.2 % (20.0-45.0) 41.2 % (20.0-45.0) Monocytes (%) (Auto) % (1.0-10.0) 3.1 % (1.0-10.0) 3.1 % (1.0-10.0) Eosinophils (%) (Auto) % (0.0-3.0) 2.0 % (0.0-3.0) 1.2 % (0.0-3.0) Basophils (%) (Auto) % (0.0-2.0) 0.4 % (0.0-2.0) 0.6 % (0.0-2.0) Sodium Level 154 MMOL/L (136-145) 150 MMOL/L (136-145) 142 MMOL/L (136-145) Potassium Level 3.5 MMOL/L (3.5-5.1) 3.3 MMOL/L (3.5-5.1) 4.1 MMOL/L (3.5-5.1) Chloride Level 123 MMOL/L (98-107) 119 MMOL/L (98-107) 114 MMOL/L (98-107) Carbon Dioxide Level 26 MMOL/L (21-32) 19 MMOL/L (21-32) 22 MMOL/L (21-32) Anion Gap 5 mmol/L (5-15) 12 mmol/L (5-15) 6 mmol/L (5-15) Blood Urea Nitrogen 39 mg/dL (7-18) 20 mg/dL (7-18) 31 mg/dL (7-18) Creatinine 1.2 MG/DL (0.55-1.30) 1.0 MG/DL (0.55-1.30) 1.2 MG/DL (0.55-1.30) Estimat Glomerular Filtration Rate mL/min (>60) mL/min (>60) mL/min (>60) Glucose Level 116 MG/DL (74-106) 131 MG/DL (74-106) 146 MG/DL (74-106) Calcium Level 7.4 MG/DL (8.5-10.1) 7.0 MG/DL (8.5-10.1) 8.1 MG/DL (8.5-10.1) Phosphorus Level 1.6 MG/DL (2.5-4.9) 2.8 MG/DL (2.5-4.9) 2.2 MG/DL (2.5-4.9) Magnesium Level 1.5 MG/DL (1.8-2.4) 2.1 MG/DL (1.8-2.4) 2.2 MG/DL (1.8-2.4) Total Bilirubin 0.4 MG/DL (0.2-1.0) 0.6 MG/DL (0.2-1.0) 0.4 MG/DL (0.2-1.0) Aspartate Amino Transf (AST/SGOT) 13 U/L (15-37) 13 U/L (15-37) 15 U/L (15-37) Alanine Aminotransferase (ALT/SGPT) 9 U/L (12-78) 8 U/L (12-78) 9 U/L (12-78) Alkaline Phosphatase 76 U/L (46-116) 55 U/L (46-116) 70 U/L (46-116) Total Protein 6.9 G/DL (6.4-8.2) 6.2 G/DL (6.4-8.2) 7.2 G/DL (6.4-8.2) Albumin 1.6 G/DL (3.4-5.0) 1.3 G/DL (3.4-5.0) 1.5 G/DL (3.4-5.0) Globulin 5.3 g/dL Albumin/Globulin Ratio 0.3 (1.0-2.7) Uric Acid 4.2 MG/DL (2.6-7.2) Direct Bilirubin 0.2 MG/DL (0.0-0.3) 0.1 MG/DL (0.0-0.3) Height (Feet): 5 Height (Inches): 7.00 Weight (Pounds): 170 Objective General Appearance: severe distress, lethargic, Chronically Ill Head: normocephalic, atraumatic Eyes: bilateral eye PERRL, bilateral eye EOMI ENT: dry mucus membranes Neck: full range of motion, supple, no meningismus Respiratory: chest non-tender, respiratory distress, rhonchi. CPAP+ Cardiovascular: regular rate, rhythm, no murmur, tachycardia Gastrointestinal: normal bowel sounds, non tender- Reducible abdominal wall hernia. COLOSTOMY+, GT++ Rectal: other - large sacral Stage 4 ulcer Tobin Stover MD Feb 23, 2019 14:26
--- NOTE | 2019-02-23 15:33 | NUR ---
NURSE NOTES: Sacral dressing changed and photographed for transfer to telemetry> HELEN Block at bedside assisting.
--- NOTE | 2019-02-23 16:44 | NUR ---
HAND-OFF: Pt transfer to tele awake/alert breathing easily on 2 lpm nasal cannula. Pt transfer with chart, insulin pens, labels, and IV pole. Report given to HELEN Block.
[2019-02-23 16:45] VITALS: BP 110/66
--- NOTE | 2019-02-23 16:45 | NUR ---
HAND-OFF: Received report from Jamaal. Pt transfer to tele. Patient is awake/alert to only name. Patient is breathing easily on 2L nasal cannula. Noted wound care completed. Patient placed on youth nutritional monitor. will restart feeding. Noted colostomy bag in LLQ intact and dry. Noted g-tube that is intact and dry. Sacral dressing is dry and intact. Patient is on p200 mattress and on right side of bed. Will continue to follow through with plan of care.
--- NOTE | 2019-02-23 16:54 | NUR ---
DISCHARGE PLANNING: NOTE PATIENT HAS A BED AT [facility] [address] [facility] [address] 3 BED 1 T: [phone]
[2019-02-23] MEDS ORDERED: Albuterol/Ipratropium 3ml neb HHN SCH (19:00)
--- NOTE | 2019-02-23 19:50 | NUR ---
NURSE NOTES: Received pt from HELEN Correia. Pt asleep but easy to arouse. Bed in lowest position. IV site intact and patent. GT feeding running at 30 cc/hr. Will continue to monitor. Addendum: 02/23/19 at 2046 by Chely Benedict RN HELEN Block
--- NOTE | 2019-02-23 19:57 | NUR ---
HAND-OFF: Report given to HELEN Mo.
[2019-02-23 20:00] VITALS: BP 117/58
[2019-02-23] MEDS: Dyna-Hex 2% Top Sol 2oz TOPIC SCH (20:00)
--- NOTE | 2019-02-23 20:39 | Cardiology Progress Note ---
Assessment/Plan Assessment/Plan 1. Sinus tachycardia, resolved, continue hydration. 2. Hypoxemic hypercarbic respiratory failure. 3. Severe hypernatremia secondary volume contraction, resolved. 4. MANUEL, creat higher today up to 1.2. 5. Anemia Subjective Subjective Sinus rhythm at rate of 96. Objective Last 24 Hour Vital Signs Date Time Temp Pulse Resp B/P (MAP) Pulse Ox O2 Delivery O2 Flow Rate FiO2 02/23/19 19:59 98 Nasal Cannula 2.0 28 02/23/19 19:59 96 20 100 Nasal Cannula 2.0 28 92 20 98 02/23/19 16:45 98.7 94 17 110/66 (81) 97 02/23/19 15:31 102 02/23/19 15:16 86 20 98 Nasal Cannula 2.0 28 02/23/19 15:15 84 20 99 Nasal Cannula 2.0 28 02/23/19 12:21 80 20 99 Nasal Cannula 2.0 28 02/23/19 12:04 77 20 98 Nasal Cannula 2.0 28 02/23/19 12:00 98.3 101 17 107/59 (75) 98 02/23/19 12:00 89 02/23/19 12:00 Nasal Cannula 2.0 02/23/19 08:00 86 02/23/19 08:00 98.1 84 16 106/54 (71) 96 02/23/19 08:00 84 20 100 Nasal Cannula 2.0 28 02/23/19 07:50 99 Nasal Cannula 2.0 28 02/23/19 07:50 86 20 99 Nasal Cannula 2.0 28 02/23/19 07:46 Nasal Cannula 2.0 02/23/19 04:00 Nasal Cannula 2.0 02/23/19 04:00 98.5 87 19 112/55 (74) 100 02/23/19 03:34 86 02/23/19 02:40 Nasal Cannula 2.0 28 02/23/19 02:40 Nasal Cannula 2.0 28 02/23/19 00:19 75 02/23/19 00:00 Nasal Cannula 2.0 02/23/19 00:00 98.8 80 19 113/54 (73) 100 02/22/19 23:27 Nasal Cannula 2.0 28 02/22/19 23:27 Nasal Cannula 2.0 28 Intake and Output 02/22/19 02/23/19 19:00 07:00 Intake Total 1035 ml 1310 ml Output Total 1250 ml Balance -215 ml 1310 ml Free Water 150 ml 50 ml IV Total 675 ml 820 ml Tube Feeding 210 ml 440 ml Output Urine Total 1150 ml Stool Total 100 ml Laboratory Tests Test 02/23/19 03:10 White Blood Count 8.3 K/UL (4.8-10.8) Red Blood Count 3.51 M/UL (4.20-5.40) L Hemoglobin 9.5 G/DL (12.0-16.0) L Hematocrit 30.5 % (37.0-47.0) L Mean Corpuscular Volume 87 FL (80-99) Mean Corpuscular Hemoglobin 27.0 PG (27.0-31.0) Mean Corpuscular Hemoglobin Concent 31.1 G/DL (32.0-36.0) L Red Cell Distribution Width 15.8 % (11.6-14.8) H Platelet Count 151 K/UL (150-450) Mean Platelet Volume 8.8 FL (6.5-10.1) Neutrophils (%) (Auto) 53.9 % (45.0-75.0) Lymphocytes (%) (Auto) 41.2 % (20.0-45.0) Monocytes (%) (Auto) 3.1 % (1.0-10.0) Eosinophils (%) (Auto) 1.2 % (0.0-3.0) Basophils (%) (Auto) 0.6 % (0.0-2.0) Sodium Level 142 MMOL/L (136-145) Potassium Level 4.1 MMOL/L (3.5-5.1) Chloride Level 114 MMOL/L (98-107) H Carbon Dioxide Level 22 MMOL/L (21-32) Anion Gap 6 mmol/L (5-15) Blood Urea Nitrogen 31 mg/dL (7-18) H Creatinine 1.2 MG/DL (0.55-1.30) Estimat Glomerular Filtration Rate mL/min (>60) Glucose Level 146 MG/DL (74-106) H Calcium Level 8.1 MG/DL (8.5-10.1) L Phosphorus Level 2.2 MG/DL (2.5-4.9) L Magnesium Level 2.2 MG/DL (1.8-2.4) Total Bilirubin 0.4 MG/DL (0.2-1.0) Direct Bilirubin 0.1 MG/DL (0.0-0.3) Aspartate Amino Transf (AST/SGOT) 15 U/L (15-37) Alanine Aminotransferase (ALT/SGPT) 9 U/L (12-78) L Alkaline Phosphatase 70 U/L (46-116) Total Protein 7.2 G/DL (6.4-8.2) Albumin 1.5 G/DL (3.4-5.0) L Objective HEENT: normocephalic, atraumatic, bilateral eye PERRL, + dry mucus membranes Neck: - JVD, no carotid bruit Respiratory: crackles bilaterally Cardiovascular: Normal S1S2, tachycardia, no murmurs, gallops or rubs. Gastrointestinal: non tender, soft, non-distended, colostomy bag in the left mid abdomen Musculoskeletal: No edema, clubbing or cyanosis. Logan Arias MD Feb 23, 2019 20:39
[2019-02-23] MEDS ORDERED: OLANZapine 2.5mg tab ORAL SCH (21:00)
--- NOTE | 2019-02-23 21:49 | General Progress Note ---
Assessment/Plan Problem List: (1) Renal failure (ARF), acute on chronic ICD Codes: N17.9 - Acute kidney failure, unspecified; N18.9 - Chronic kidney disease, unspecified SNOMED: 939633361 (2) Altered level of consciousness ICD Codes: R40.4 - Transient alteration of awareness SNOMED: 3637267 (3) Hypotension ICD Codes: I95.9 - Hypotension, unspecified SNOMED: 06172925 (4) Anemia ICD Codes: D64.9 - Anemia, unspecified SNOMED: 806938312 (5) Sepsis ICD Codes: A41.9 - Sepsis, unspecified organism SNOMED: 72719197 (6) Electrolyte imbalance ICD Codes: E87.8 - Other disorders of electrolyte and fluid balance, not elsewhere classified SNOMED: 664368967 Status: progressing Assessment/Plan: still altered and confused septic sugar is improved lyte abnormality check labs and vitas and reviewed chart obesity no wheezing reviewed chart and labs Subjective ROS Limited/Unobtainable: Yes Allergies: Coded Allergies: ALLOPURINOL (Verified Allergy, Unknown, 12/20/18) Objective Last 24 Hour Vital Signs Date Time Temp Pulse Resp B/P (MAP) Pulse Ox O2 Delivery O2 Flow Rate FiO2 02/23/19 19:59 98 Nasal Cannula 2.0 28 02/23/19 19:59 96 20 100 Nasal Cannula 2.0 28 92 20 98 02/23/19 16:45 98.7 94 17 110/66 (81) 97 02/23/19 15:31 102 02/23/19 15:16 86 20 98 Nasal Cannula 2.0 28 02/23/19 15:15 84 20 99 Nasal Cannula 2.0 28 02/23/19 12:21 80 20 99 Nasal Cannula 2.0 28 02/23/19 12:04 77 20 98 Nasal Cannula 2.0 28 02/23/19 12:00 98.3 101 17 107/59 (75) 98 02/23/19 12:00 89 02/23/19 12:00 Nasal Cannula 2.0 02/23/19 08:00 86 02/23/19 08:00 98.1 84 16 106/54 (71) 96 02/23/19 08:00 84 20 100 Nasal Cannula 2.0 28 02/23/19 07:50 99 Nasal Cannula 2.0 28 02/23/19 07:50 86 20 99 Nasal Cannula 2.0 28 02/23/19 07:46 Nasal Cannula 2.0 02/23/19 04:00 Nasal Cannula 2.0 02/23/19 04:00 98.5 87 19 112/55 (74) 100 02/23/19 03:34 86 02/23/19 02:40 Nasal Cannula 2.0 28 02/23/19 02:40 Nasal Cannula 2.0 28 02/23/19 00:19 75 02/23/19 00:00 Nasal Cannula 2.0 02/23/19 00:00 98.8 80 19 113/54 (73) 100 02/22/19 23:27 Nasal Cannula 2.0 28 02/22/19 23:27 Nasal Cannula 2.0 28 Intake and Output 02/22/19 02/23/19 19:00 07:00 Intake Total 1035 ml 1310 ml Output Total 1250 ml Balance -215 ml 1310 ml Free Water 150 ml 50 ml IV Total 675 ml 820 ml Tube Feeding 210 ml 440 ml Output Urine Total 1150 ml Stool Total 100 ml Laboratory Tests 02/23/19 03:10: White Blood Count 8.3, Red Blood Count 3.51L, Hemoglobin 9.5L, Hematocrit 30.5L , Mean Corpuscular Volume 87, Mean Corpuscular Hemoglobin 27.0, Mean Corpuscular Hemoglobin Concent 31.1L, Red Cell Distribution Width 15.8H, Platelet Count 151, Mean Platelet Volume 8.8, Neutrophils (%) (Auto) 53.9, Lymphocytes (%) (Auto) 41.2, Monocytes (%) (Auto) 3.1, Eosinophils (%) (Auto) 1.2, Basophils (%) (Auto) 0.6, Sodium Level 142, Potassium Level 4.1, Chloride Level 114H, Carbon Dioxide Level 22, Anion Gap 6, Blood Urea Nitrogen 31H, Creatinine 1.2, Estimat Glomerular Filtration Rate , Glucose Level 146H, Calcium Level 8.1L, Phosphorus Level 2.2L, Magnesium Level 2.2, Total Bilirubin 0.4, Direct Bilirubin 0.1, Aspartate Amino Transf (AST/SGOT) 15, Alanine Aminotransferase (ALT/SGPT) 9L, Alkaline Phosphatase 70, Total Protein 7.2, Albumin 1.5L Height (Feet): 5 Height (Inches): 7.00 Weight (Pounds): 170 Cardiovascular: normal rate Respiratory/Chest: lungs clear Abdomen: soft Danial aWlden MD Feb 23, 2019 21:49
[2019-02-23] MEDS: OLANZapine 2.5mg tab ORAL SCH (21:55)
[2019-02-23] MEDS: Atorvastatin 20mg tab ORAL SCH (21:55)
[2019-02-24] VITALS: BP 119/54
[2019-02-24] MEDS: NovoLOG Insulin Flexpen SUBQ SCH ×5 (00:39→23:08)
[2019-02-24 04:00] VITALS: BP 123/60
--- NOTE | 2019-02-24 04:58 | NUR ---
NURSE NOTES: Called and left a message with Christiano regarding new Gtf goal. Awaiting call back.
--- NOTE | 2019-02-24 07:36 | NUR ---
NURSE NOTES: Received patient from Keith Mo. Patient sleeping comfortably in bed. Glucerna 1.2 @ 30ml/hr via Gtube. HOB @ 30 degrees angle. IVF D5w running @75ml/hr via peripheral IV. Left lower quadrant colostomy emptied with liquidy prado yellow stool. safety precautions in place. bed locked to lowest positon. SR X2 up for safety. call wu within patients reached. Will continue to follow.
[2019-02-24 08:00] VITALS: BP 107/57
[2019-02-24] MEDS: Cefepime HCl 1 GM in NS 55 ML IVPB SCH (08:32)
[2019-02-24] MEDS: Aspirin EC 81mg tab ORAL SCH (08:35)
[2019-02-24] MEDS: Levemir Flexpen SUBQ SCH ×2 (08:37→17:04)
[2019-02-24 12:00] VITALS: BP 122/53
--- NOTE | 2019-02-24 12:13 | Surgery Progress Note ---
Surgery Progress Note Subjective Additional Comments no acute events labs noted low grade fever. no n/v/f/c. Objective Last 24 Hour Vital Signs Date Time Temp Pulse Resp B/P (MAP) Pulse Ox O2 Delivery O2 Flow Rate FiO2 02/24/19 09:15 99 Nasal Cannula 2.0 28 02/24/19 09:00 Nasal Cannula 2.0 02/24/19 08:00 90 02/24/19 08:00 97.4 80 20 107/57 (74) 99 02/24/19 04:00 99.1 75 18 123/60 (81) 97 02/24/19 04:00 86 02/24/19 00:00 87 02/24/19 00:00 99.5 77 18 119/54 (75) 100 02/23/19 21:00 Nasal Cannula 2.0 02/23/19 20:00 99.1 93 18 117/58 (77) 99 02/23/19 20:00 94 02/23/19 19:59 98 Nasal Cannula 2.0 28 02/23/19 19:59 96 20 100 Nasal Cannula 2.0 28 92 20 98 02/23/19 16:45 98.7 94 17 110/66 (81) 97 02/23/19 15:31 102 02/23/19 15:16 86 20 98 Nasal Cannula 2.0 28 02/23/19 15:15 84 20 99 Nasal Cannula 2.0 28 02/23/19 12:21 80 20 99 Nasal Cannula 2.0 28 I&O Intake and Output 02/23/19 02/24/19 19:00 07:00 Intake Total 135 ml 30 ml Output Total 1700 ml 1200 ml Balance -1565 ml -1170 ml IV Total 75 ml Tube Feeding 60 ml 30 ml Output Urine Total 1500 ml 1200 ml Stool Total 200 ml Dressing: saturated Wound: other Drains: other Cardiovascular: RSR Respiratory: decreased breath sounds Abdomen: soft, present bowel sounds, non-distended Extremities: no cyanosis Plan Problems: (1) Decubitus ulcer of sacral region, stage 4 Assessment & Plan: Pt presented on admission with full thickness stage 4 Sacral Pressure Injury with undermining. Bone is palpable. Base of has beefy red granulation with scattered small purple areas. No odor noted .Scant serous exudate noted . Edges pink and flat with some sloth. DTPI noted to lateral R foot. .Base of wound purple and fluctuant in center with surrounding maroon discoloration Non-blanchable erythema with fluctuance noted to posterior and medial R heel. L heel boggy but blanchable. Tx.Plan: Cleanse Sacral wound with Saline. Loosely pack with Hydrogel Impregnated Kerlix. Cover with ABD pads and secure with Paper Tape or Tegaderm Daily and prn. Apply Cavilon Skin Barrier to R and Heel and lateral R heel. Ciover with Optifoam drsg. Change every 7 days and PRN. Apply Cavilon Skin Barrier to L heel. Cover with Optifoam drsg. Change every 7 days and prn. APM/VIJI Mattress Overlay. Reposition at least every 2hours or as tolerated. Off-load heels with Pillow. (2) Sepsis Assessment & Plan: tachycardia, leukocytosis, anemia, abnormal labs, altered status - improving wound evaluate and tho not as optimal as prior unlikely etiology of infection IV abx as per ID care orders as below trend labs will follow with recs thank you Mauro Morrow Feb 24, 2019 12:13
--- NOTE | 2019-02-24 14:05 | Pulmonolgy Critical Care Note ---
Critical Care - Asmt/Plan Assessment/Plan: Pulmonary CCM Progress Note HPI Patient is an 83 year old woman from [place], history of Diabetes, admitted with alteration in mental status, very high glucose readings - now resolved Noted to have a UTI - gas bubbles at the periphery of the dome of the bladder are concerning for intramural gas consistent with emphysematous cystitis, on antiibiotics per ID No reports of vomiting or diarrhea Hypernatremia improving Stable overnight Past Medical History: Diabetes, Hypertension, Chronic Obstructive Pulmonary Disease, Dyphagia, s/p Gastrostomy Tube, Anemia, Previous CVA, previous colostomy All Other Systems: limited Physical Exam Vital Signs Noted Date Time Temp Pulse Resp B/P (MAP) Pulse Ox O2 Delivery O2 Flow Rate FiO2 02/18/19 12:08 98.1 101 24 101/82 (88) 98 Room Air General Appearance: Chronically ill appearing, altered mental status, no response to verbal command,moans with physical stimuli Head: normocephalic, atraumatic Eyes: bilateral eye PERRL ENT: no angioedema, dry mucus membranes Neck: supple, no LN Respiratory: no respiratory distress, crackles - bilaterally Cardiovascular: tachycardia, HS1, HS2, normal, RRR Gastrointestinal: non tender, soft, other - Colostomy bag noted Musculoskeletal: oupper extremity localizes towards physical stimuli, Neurologic: Significantly decreased GCS patient makes moaning sound to physical stimuli is somewhat purposeful with her upper extremity, otherwise nonverbal does not follow commands Skin: no rash, no edema Impression Severe Hyperglycemia Severe Dehydration Urinary Tract Infection Sepsis Previous Diabetes Hypertension Chronic Obstructive Pulmonary Disease Dysphagia, s/p Gastrostomy Tube Anemia Previous CVA Plan - IV Antibiotics per ID - Blood/Urine cultures - Insulin SS - IV fluids PRN - Monitor labs - Pressors PRN - HHN - O2 PRN - [facility] meds - PPX Labs Noted CT Abdomen: Marked abnormal bladder, with wall thickening, and extensive stranding of the pericystic fat. Gas within the bladder lumen is presumably related to Agarwal catheter. However, gas bubbles at the periphery of the dome of the bladder are concerning for intramural gas consistent with emphysematous cystitis. Positive for tiny right distal ureteral calculus resulting in moderate right hydronephrosis and hydroureter Bilateral intrarenal calculi Extensive retrosacral/retrococcygeal decubitus changes. Correlate with clinical findings. 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 CXR: Nil acute Critical Care - Objective Last 24 Hour Vital Signs Date Time Temp Pulse Resp B/P (MAP) Pulse Ox O2 Delivery O2 Flow Rate FiO2 02/24/19 12:00 98.2 83 18 122/53 (76) 100 02/24/19 09:15 99 Nasal Cannula 2.0 28 02/24/19 09:00 Nasal Cannula 2.0 02/24/19 08:00 90 02/24/19 08:00 97.4 80 20 107/57 (74) 99 02/24/19 04:00 99.1 75 18 123/60 (81) 97 02/24/19 04:00 86 02/24/19 00:00 87 02/24/19 00:00 99.5 77 18 119/54 (75) 100 02/23/19 21:00 Nasal Cannula 2.0 02/23/19 20:00 99.1 93 18 117/58 (77) 99 02/23/19 20:00 94 02/23/19 19:59 98 Nasal Cannula 2.0 28 02/23/19 19:59 96 20 100 Nasal Cannula 2.0 28 92 20 98 02/23/19 16:45 98.7 94 17 110/66 (81) 97 02/23/19 15:31 102 02/23/19 15:16 86 20 98 Nasal Cannula 2.0 28 02/23/19 15:15 84 20 99 Nasal Cannula 2.0 28 Accucheck: 212 Critical Care - Subjective ROS Limited/Unobtainable: No FI02: 28 Sputum Amount: None Tube Feeding Amount: 30 I&O: Intake and Output 02/23/19 02/24/19 18:59 06:59 Intake Total 135 ml 30 ml Output Total 1700 ml 1200 ml Balance -1565 ml -1170 ml IV Total 75 ml Tube Feeding 60 ml 30 ml Output Urine Total 1500 ml 1200 ml Stool Total 200 ml Minh Dunbar MD Feb 24, 2019 14:05
--- NOTE | 2019-02-24 15:13 | General Progress Note ---
Assessment/Plan Problem List: (1) Renal failure (ARF), acute on chronic ICD Codes: N17.9 - Acute kidney failure, unspecified; N18.9 - Chronic kidney disease, unspecified SNOMED: 720342902 (2) Altered level of consciousness ICD Codes: R40.4 - Transient alteration of awareness SNOMED: 6813386 (3) Hypotension ICD Codes: I95.9 - Hypotension, unspecified SNOMED: 81982271 (4) Anemia ICD Codes: D64.9 - Anemia, unspecified SNOMED: 909302031 (5) Sepsis ICD Codes: A41.9 - Sepsis, unspecified organism SNOMED: 51507498 (6) Electrolyte imbalance ICD Codes: E87.8 - Other disorders of electrolyte and fluid balance, not elsewhere classified SNOMED: 505245460 Status: progressing Assessment/Plan: still altered and confused septic niddm htn arf lyte improved still not at baseline mentation reviewed chart and labs Subjective ROS Limited/Unobtainable: Yes Allergies: Coded Allergies: ALLOPURINOL (Verified Allergy, Unknown, 12/20/18) Objective Last 24 Hour Vital Signs Date Time Temp Pulse Resp B/P (MAP) Pulse Ox O2 Delivery O2 Flow Rate FiO2 02/24/19 12:00 98.2 83 18 122/53 (76) 100 02/24/19 12:00 91 02/24/19 09:15 99 Nasal Cannula 2.0 28 02/24/19 09:00 Nasal Cannula 2.0 02/24/19 08:00 90 02/24/19 08:00 97.4 80 20 107/57 (74) 99 02/24/19 04:00 99.1 75 18 123/60 (81) 97 02/24/19 04:00 86 02/24/19 00:00 87 02/24/19 00:00 99.5 77 18 119/54 (75) 100 02/23/19 21:00 Nasal Cannula 2.0 02/23/19 20:00 99.1 93 18 117/58 (77) 99 02/23/19 20:00 94 02/23/19 19:59 98 Nasal Cannula 2.0 28 02/23/19 19:59 96 20 100 Nasal Cannula 2.0 28 92 20 98 02/23/19 16:45 98.7 94 17 110/66 (81) 97 02/23/19 15:31 102 02/23/19 15:16 86 20 98 Nasal Cannula 2.0 28 02/23/19 15:15 84 20 99 Nasal Cannula 2.0 28 Intake and Output 02/23/19 02/24/19 18:59 06:59 Intake Total 135 ml 30 ml Output Total 1700 ml 1200 ml Balance -1565 ml -1170 ml IV Total 75 ml Tube Feeding 60 ml 30 ml Output Urine Total 1500 ml 1200 ml Stool Total 200 ml Height (Feet): 5 Height (Inches): 7.00 Weight (Pounds): 200 Cardiovascular: normal rate Respiratory/Chest: lungs clear Danial Walden MD Feb 24, 2019 15:13
[2019-02-24] MEDS ORDERED: NS 275ml ONE ×3 (15:53→17:47)
[2019-02-24] MEDS ORDERED: Tubing IV Secondary IV ONE ×2 (15:53→16:25)
--- NOTE | 2019-02-24 15:53 | Nephrology Progress Note ---
Assessment/Plan Problem List: (1) Renal failure (ARF), acute on chronic (2) Hypotension (3) Anemia (4) Colostomy status (5) PEG (percutaneous endoscopic gastrostomy) status (6) Electrolyte imbalance Assessment Acute renal failure ? Underlying CKD Severe Dehydration Hyperglycemia- DM OOC A1c High Severe underlying Anemia Electrolyte imbalance UTI PEG Colostomy Severe HypoAlbuminemia Plan Plan; K and Phos and Mag supplement as needed D5W Hydrate Glucose check Albumin bolus as needed K mag Phos supplement as needed monitor lytes, and H&H Per orders Subjective ROS Limited/Unobtainable: No Constitutional: Reports: malaise, weakness Objective Objective Last 24 Hour Vital Signs Date Time Temp Pulse Resp B/P (MAP) Pulse Ox O2 Delivery O2 Flow Rate FiO2 02/24/19 12:00 98.2 83 18 122/53 (76) 100 02/24/19 12:00 91 02/24/19 09:15 99 Nasal Cannula 2.0 28 02/24/19 09:00 Nasal Cannula 2.0 02/24/19 08:00 90 02/24/19 08:00 97.4 80 20 107/57 (74) 99 02/24/19 04:00 99.1 75 18 123/60 (81) 97 02/24/19 04:00 86 02/24/19 00:00 87 02/24/19 00:00 99.5 77 18 119/54 (75) 100 02/23/19 21:00 Nasal Cannula 2.0 02/23/19 20:00 99.1 93 18 117/58 (77) 99 02/23/19 20:00 94 02/23/19 19:59 98 Nasal Cannula 2.0 28 02/23/19 19:59 96 20 100 Nasal Cannula 2.0 28 92 20 98 02/23/19 16:45 98.7 94 17 110/66 (81) 97 Intake and Output 02/23/19 02/24/19 18:59 06:59 Intake Total 135 ml 30 ml Output Total 1700 ml 1200 ml Balance -1565 ml -1170 ml IV Total 75 ml Tube Feeding 60 ml 30 ml Output Urine Total 1500 ml 1200 ml Stool Total 200 ml Height (Feet): 5 Height (Inches): 7.00 Weight (Pounds): 200 General Appearance: no apparent distress Cardiovascular: normal rate Respiratory/Chest: decreased breath sounds Abdomen: distended Servando Cifuentes MD Feb 24, 2019 15:53
[2019-02-24 16:00] VITALS: BP 126/98
[2019-02-24] MEDS ORDERED: Tubing IV Blood Pump IV ONE (16:25)
[2019-02-24] MEDS ORDERED: Sodium Phosphate 10 MM in NS 275 ML IVPB ONE (17:00)
[2019-02-24] MEDS ORDERED: Tubing Blood Filter IV ONE (17:47)
--- NOTE | 2019-02-24 19:17 | NUR ---
NURSE NOTES: Received pt from HELEN Brewer. Pt asleep. Bed in lowest position. Call light within reach. GT intact and running glucerna at 30. Agarwal patent and draining. Will continue to monitor.
--- NOTE | 2019-02-24 19:20 | NUR ---
HAND-OFF: Report given to HELEN Mo.PAtient stable at hand off. PLan of care endorsed. Will follow.
[2019-02-24] MEDS: Dyna-Hex 2% Top Sol 2oz TOPIC SCH (19:54)
[2019-02-24] MEDS: Atorvastatin 20mg tab ORAL SCH (19:54)
[2019-02-24] MEDS: OLANZapine 2.5mg tab ORAL SCH (19:54)
[2019-02-24 20:00] VITALS: BP 151/70
--- NOTE | 2019-02-24 20:18 | NUR ---
NURSE NOTES: Called and left a message with Dr. Walden and Dr. Villa regarding pts request for pain meds. Awaiting call back
--- NOTE | 2019-02-24 21:51 | Cardiology Progress Note ---
Assessment/Plan Assessment/Plan 1. Sinus tachycardia, resolved, continue hydration. 2. Hypoxemic hypercarbic respiratory failure. 3. Severe hypernatremia secondary volume contraction, resolved. 4. MANUEL, resolved, creat at 1.1. 5. Anemia Subjective Subjective Sinus rhythm at rate of 78. Objective Last 24 Hour Vital Signs Date Time Temp Pulse Resp B/P (MAP) Pulse Ox O2 Delivery O2 Flow Rate FiO2 02/24/19 20:00 97.9 78 20 151/70 (97) 99 02/24/19 16:00 97.6 82 20 126/98 (107) 100 02/24/19 16:00 75 02/24/19 12:00 98.2 83 18 122/53 (76) 100 02/24/19 12:00 91 02/24/19 09:15 99 Nasal Cannula 2.0 28 02/24/19 09:00 Nasal Cannula 2.0 02/24/19 08:00 90 02/24/19 08:00 97.4 80 20 107/57 (74) 99 02/24/19 04:00 99.1 75 18 123/60 (81) 97 02/24/19 04:00 86 02/24/19 00:00 87 02/24/19 00:00 99.5 77 18 119/54 (75) 100 Intake and Output 02/23/19 02/24/19 19:00 07:00 Intake Total 135 ml 30 ml Output Total 1700 ml 1200 ml Balance -1565 ml -1170 ml IV Total 75 ml Tube Feeding 60 ml 30 ml Output Urine Total 1500 ml 1200 ml Stool Total 200 ml Objective HEENT: normocephalic, atraumatic, bilateral eye PERRL, + dry mucus membranes Neck: - JVD, no carotid bruit Respiratory: crackles bilaterally Cardiovascular: Normal S1S2, tachycardia, no murmurs, gallops or rubs. Gastrointestinal: non tender, soft, non-distended, colostomy bag in the left mid abdomen Musculoskeletal: No edema, clubbing or cyanosis. Logan Arias MD Feb 24, 2019 21:51
[2019-02-24] MEDS: Acetaminophen 500mg (ES) tab ORAL PRN (23:06)
[2019-02-25] VITALS: BP 109/53
--- NOTE | 2019-02-25 03:14 | NUR ---
HAND-OFF: Report given to HELEN Krause. Pt stable.
--- NOTE | 2019-02-25 03:17 | NUR ---
NURSE NOTES: Received report from Preston Benedict RN. Patient in bed AAO X1-2 with no complaints of acute adkins or discomfort noted. Kept clean, dry, and comfortable in bed. IV line intact and patent with prescribed fluids running as ordered. Placed on continuous cardiac monitoring per protocol. FC intact and tubing patent. Colostomy care rendered. Safety precaution in place; siderails X3 up, call light within reach, bed in lowest position, brakes and alarm on at all times. Needs and wants anticipated attended. Will continue plan of care and monitor for any changes noted.
[2019-02-25 03:57] VITALS: BP 118/55
[2019-02-25] MEDS: NovoLOG Insulin Flexpen SUBQ SCH ×3 (05:45→17:06)
[2019-02-25 06:21] LABS: BASOPHILS % (AUTO) 0.4 % (0.0-2.0); EOSINOPHILS % (AUTO) 1.5 % (0.0-3.0); HEMATOCRIT 32.9 % (37.0-47.0); HEMOGLOBIN 10.3 G/DL (12.0-16.0); LYMPHOCYTES % (AUTO) 32.4 % (20.0-45.0); MEAN CORPUSCULAR VOLUME 88 FL (80-99); MONOCYTES % (AUTO) 4.1 % (1.0-10.0); NEUTROPHILS % (AUTO) 61.7 % (45.0-75.0); PLATELET COUNT 156 K/UL (150-450); RED BLOOD COUNT 3.73 M/UL (4.20-5.40); RED CELL DISTRIBUTION WIDTH 16.3 % (11.6-14.8); WHITE BLOOD COUNT 7.8 K/UL (4.8-10.8)
[2019-02-25 06:37] LABS: ANION GAP 7 mmol/L (5-15); BLOOD UREA NITROGEN 20 mg/dL (7-18); CALCIUM 8.6 MG/DL (8.5-10.1); CARBON DIOXIDE 23 MMOL/L (21-32); CHLORIDE 111 MMOL/L (98-107); CREATININE 1.1 MG/DL (0.55-1.30); POTASSIUM 4.4 MMOL/L (3.5-5.1); SODIUM 141 MMOL/L (136-145)
--- NOTE | 2019-02-25 07:09 | NUR ---
HAND-OFF: Report given to Anabell Ramírez RN. Patient in bed in stable condition. Endorsed plan of care. Addendum: 02/25/19 at 0719 by Daniella Ramírez RN NURSE NOTES: Received patient from Keith Krause. Patient sleeping comfortably in bed. No s/s of pain or discomfort. TF glucerna 1.12 @ 30ml/hr via gtube. HOB at 30 degrees angle. D5W @ 50 ML /hr via peripheral IV. safety precautions in place. will follow
--- NOTE | 2019-02-25 07:11 | General Progress Note ---
Assessment/Plan Problem List: (1) Diabetes mellitus out of control ICD Codes: E11.65 - Type 2 diabetes mellitus with hyperglycemia SNOMED: 58711316, 269101775 (2) Decubitus ulcer of sacral region, stage 4 ICD Codes: L89.154 - Pressure ulcer of sacral region, stage 4 SNOMED: 133234249, 888587029 (3) Sepsis ICD Codes: A41.9 - Sepsis, unspecified organism SNOMED: 54465964 (4) Electrolyte imbalance ICD Codes: E87.8 - Other disorders of electrolyte and fluid balance, not elsewhere classified SNOMED: 075319971 (5) Altered level of consciousness ICD Codes: R40.4 - Transient alteration of awareness SNOMED: 2194887 (6) Renal failure (ARF), acute on chronic ICD Codes: N17.9 - Acute kidney failure, unspecified; N18.9 - Chronic kidney disease, unspecified SNOMED: 342100295 (7) PEG (percutaneous endoscopic gastrostomy) status ICD Codes: Z93.1 - Gastrostomy status SNOMED: 068358194, 142565952 (8) Colostomy status ICD Codes: Z93.3 - Colostomy status SNOMED: 77317754, 701013793, 000670086 Status: progressing Assessment/Plan: increase Levemir to 8 units bid continue Novolog sliding scale 4 times daily Subjective ROS Limited/Unobtainable: Yes Allergies: Coded Allergies: ALLOPURINOL (Verified Allergy, Unknown, 12/20/18) Subjective events noted glucose values are slightly on higher side Item Value Date Time Bedside Blood Glucose 167 mg/dl H 02/25/19 0600 Bedside Blood Glucose 174 mg/dl H 02/24/19 2308 Bedside Blood Glucose 240 mg/dl H 02/24/19 1704 Bedside Blood Glucose 212 mg/dl H 02/24/19 1223 Bedside Blood Glucose 159 mg/dl H 02/24/19 0837 Objective Last 24 Hour Vital Signs Date Time Temp Pulse Resp B/P (MAP) Pulse Ox O2 Delivery O2 Flow Rate FiO2 02/25/19 04:00 93 02/25/19 03:57 98.4 88 20 118/55 (76) 97 02/25/19 00:00 98.6 81 18 109/53 (71) 97 02/25/19 00:00 88 02/24/19 21:00 Nasal Cannula 2.0 02/24/19 20:00 74 02/24/19 20:00 97.9 78 20 151/70 (97) 99 02/24/19 16:00 97.6 82 20 126/98 (107) 100 02/24/19 16:00 75 02/24/19 12:00 98.2 83 18 122/53 (76) 100 02/24/19 12:00 91 02/24/19 09:15 99 Nasal Cannula 2.0 28 02/24/19 09:00 Nasal Cannula 2.0 02/24/19 08:00 90 02/24/19 08:00 97.4 80 20 107/57 (74) 99 Intake and Output 02/24/19 02/25/19 19:00 07:00 Intake Total 30 ml Output Total 1050 ml 1900 ml Balance -1020 ml -1900 ml Tube Feeding 30 ml Output Urine Total 700 ml 1550 ml Stool Total 350 ml 350 ml Laboratory Tests 02/25/19 05:10: White Blood Count 7.8, Red Blood Count 3.73L, Hemoglobin 10.3L, Hematocrit 32.9L , Mean Corpuscular Volume 88, Mean Corpuscular Hemoglobin 27.5, Mean Corpuscular Hemoglobin Concent 31.2L, Red Cell Distribution Width 16.3H, Platelet Count 156, Mean Platelet Volume 9.6, Neutrophils (%) (Auto) 61.7, Lymphocytes (%) (Auto) 32.4, Monocytes (%) (Auto) 4.1, Eosinophils (%) (Auto) 1.5, Basophils (%) (Auto) 0.4, Sodium Level 141, Potassium Level 4.4, Chloride Level 111H, Carbon Dioxide Level 23, Anion Gap 7, Blood Urea Nitrogen 20H, Creatinine 1.1, Estimat Glomerular Filtration Rate , Glucose Level 183H, Calcium Level 8.6 Height (Feet): 5 Height (Inches): 7.00 Weight (Pounds): 204 General Appearance: no apparent distress Neck: normal alignment Cardiovascular: normal rate Respiratory/Chest: lungs clear Pelvis: normal external exam Objective Current Medications Medications (Trade) Dose Ordered Sig/Nora Route PRN Reason Start Time Stop Time Status Last Admin Dose Admin Acetaminophen (Tylenol) 500 mg Q4H PRN ORAL Mild Pain/Temp > 100.5 02/24/19 22:15 9/23/19 22:14 02/24/19 23:06 Aspirin (Ecotrin) 81 mg DAILY ORAL 02/24/19 09:00 03/21/19 12:29 02/24/19 08:35 Atorvastatin Calcium (Lipitor) 40 mg BEDTIME ORAL 02/23/19 21:00 03/21/19 20:59 02/24/19 19:54 Cefepime HCl 1 gm/ Sodium Chloride 55 ml @ 110 mls/hr DAILY IVPB 02/24/19 09:00 02/25/19 17:59 02/24/19 08:32 Chlorhexidine Gluconate (Valentina-Hex 2%) 1 applic DAILY@2000 TOPIC 02/23/19 20:00 03/21/19 19:59 Dextrose 1,000 ml @ 50 mls/hr Q20H IV 02/24/19 16:15 03/23/19 10:59 02/24/19 16:15 Dextrose (Dextrose 50%) 25 ml Q30M PRN IV Hypoglycemia 02/23/19 16:30 03/21/19 08:59 Dextrose (Dextrose 50%) 50 ml Q30M PRN IV Hypoglycemia 02/23/19 16:30 03/21/19 08:59 Insulin Aspart (NovoLOG) EVERY 6 HOURS SUBQ 02/23/19 18:00 03/21/19 11:29 02/25/19 05:45 Insulin Detemir (Levemir) 6 units BID SUBQ 02/23/19 18:00 03/21/19 08:59 02/24/19 17:04 Iron Sucrose 100 mg/Sodium Chloride 55 ml @ 200 mls/hr BEDTIME IV 02/23/19 21:00 02/25/19 21:17 02/24/19 19:53 Lansoprazole (Prevacid) 30 mg BID GT 02/23/19 18:00 03/25/19 17:59 02/24/19 17:02 Olanzapine (ZyPREXA) 2.5 mg BEDTIME ORAL 02/23/19 21:00 03/25/19 20:59 02/24/19 19:54 Pablo Day MD Feb 25, 2019 07:11
--- NOTE | 2019-02-25 07:19 | NUR ---
NURSE NOTES: Received patient from Keith Krause. Patient sleeping comfortably in bed. No s/s of pain or discomfort. TF glucerna 1.12 @ 30ml/hr via gtube. HOB at 30 degrees angle. D5W @ 50 ML /hr via peripheral IV. safety precautions in place. will follow
[2019-02-25 08:00] VITALS: BP 113/71
[2019-02-25] MEDS: Aspirin EC 81mg tab ORAL SCH (08:26)
[2019-02-25] MEDS: Acetaminophen 500mg (ES) tab ORAL PRN (08:27)
[2019-02-25] MEDS: Cefepime HCl 1 GM in NS 55 ML IVPB SCH (08:29)
[2019-02-25] MEDS: Levemir Flexpen SUBQ SCH ×2 (08:54→17:06)
--- NOTE | 2019-02-25 10:49 | Hematology/Onc Progress Note ---
Assessment/Plan Assessment/Plan Assessment and Recs: # Anemia of chronic disease due to underlying chronic medical issues, multifactorial, ferritin 366, tibc 144 --> Anemia workup has been reviewed --> No evidence of hemolysis is noted, peripheral smear has been reviewed. --> Hgb goal >7. Transfuse prn. --> Iron iv is okay x 5 days total --> Medications have been reviewed --> low threshold for gi evaluation in case has occult + --> Hgb trend:>8.4-->8-->7.3-->7.7-->8.7-->9.5-->10.3 --> tolerated 1 unit on 02/22 # Recanalized dvt of the right lower extremity --> given it has healed/recanalized, is not acute okay for just heparin prophylactic dosing --> continue lovenox for dvt ppx # Leukocytosis/elevated white blood cell count, is due to underlying sepsis urine infection+ --> Currently resolved --> ID is following, appreciate recs --> have reviewed peripheral smear and bandemia/neutrophilia noted --> continue antibiotics per ID cefepime/vanc --> monitor for resolution --> trend 17.4-->11.2-->8.3 -->12-->8.6-->8.2 # Respiratory failure with hypoxia --> Currently on NC 12/28 --> pulm eval --> prior intubation 12/2018 # Sacral decubitus ulcer, stage IV --> per surg, wound care # HCAP (healthcare-associated pneumonia) --> sp abx # ARF (acute renal failure) --> per renal # Hyperglycemia due to type 2 diabetes mellitus --> per endo # Acute metabolic encephalopathy --> better # Severe dehydration # DVT pxx with lovenox (since 02/25) The timing of this note does not necessarily reflect the time of the patient was seen. GREATLY APPRECIATE CONSULTATION. Subjective Constitutional: Denies: no symptoms, chills, fever, malaise, weakness, other Cardiovascular: Denies: no symptoms, chest pain, edema, irregular heart rate, lightheadedness, palpitations, syncope, other Respiratory: Denies: no symptoms, cough, shortness of breath, SOB with excertion, SOB at rest, sputum, wheezing, other Gastrointestinal/Abdominal: Denies: no symptoms, abdomen distended, abdominal pain, black stools, tarry stools, blood in stool, constipated, diarrhea, difficulty swallowing, nausea, poor appetite, poor fluid intake, rectal bleeding , vomiting, other Genitourinary: Denies: no symptoms, burning, discharge, frequency, flank pain, hematuria, incontinence, pain, urgency, other Neurologic/Psychiatric: Denies: no symptoms, anxiety, depressed, emotional problems, headache, numbness, paresthesia, pre-existing deficit, seizure, tingling, tremors, weakness, other Endocrine: Denies: no symptoms, excessive sweating, flushing, intolerance to cold, intolerance to heat, increased hunger, increased thirst, increased urine, unexplained weight gain, unexplained weight loss, other Allergies: Coded Allergies: ALLOPURINOL (Verified Allergy, Unknown, 12/20/18) Subjective 02/19: icu, labs reviewed, bs is better today, on abx 02/20: on cefepime and have discontinued vanc, no bleeding noted, hgb reviewed 02/21: on abx, vs stable, denies pain, no distress 02/22: no events, potential dc to snf, pending clearance, gtube dependent 02/23: on nc, femoral line removed, on abx 02/25: remains on tube feeds, seen by cards, h/h better Objective Objective Current Medications Medications (Trade) Dose Ordered Sig/Nora Route PRN Reason Start Time Stop Time Status Last Admin Dose Admin Acetaminophen (Tylenol) 500 mg Q4H PRN ORAL Mild Pain/Temp > 100.5 02/24/19 22:15 03/26/19 22:14 02/25/19 08:27 Aspirin (Ecotrin) 81 mg DAILY ORAL 02/24/19 09:00 03/21/19 12:29 02/25/19 08:26 Atorvastatin Calcium (Lipitor) 40 mg BEDTIME ORAL 02/23/19 21:00 03/21/19 20:59 02/24/19 19:54 Cefepime HCl 1 gm/ Sodium Chloride 55 ml @ 110 mls/hr DAILY IVPB 02/24/19 09:00 02/25/19 17:59 02/25/19 08:29 Chlorhexidine Gluconate (Valentina-Hex 2%) 1 applic DAILY@2000 TOPIC 02/23/19 20:00 03/21/19 19:59 Dextrose 1,000 ml @ 50 mls/hr Q20H IV 02/24/19 16:15 03/23/19 10:59 02/24/19 16:15 Dextrose (Dextrose 50%) 25 ml Q30M PRN IV Hypoglycemia 02/23/19 16:30 03/21/19 08:59 Dextrose (Dextrose 50%) 50 ml Q30M PRN IV Hypoglycemia 02/23/19 16:30 03/21/19 08:59 Insulin Aspart (NovoLOG) EVERY 6 HOURS SUBQ 02/23/19 18:00 03/21/19 11:29 02/25/19 05:45 Insulin Detemir (Levemir) 8 units BID SUBQ 02/25/19 09:00 03/21/19 08:59 02/25/19 08:54 Iron Sucrose 100 mg/Sodium Chloride 55 ml @ 200 mls/hr BEDTIME IV 02/23/19 21:00 02/25/19 21:17 02/24/19 19:53 Lansoprazole (Prevacid) 30 mg BID GT 02/23/19 18:00 03/25/19 17:59 02/25/19 08:26 Olanzapine (ZyPREXA) 2.5 mg BEDTIME ORAL 02/23/19 21:00 03/25/19 20:59 02/24/19 19:54 Last 24 Hour Vital Signs Date Time Temp Pulse Resp B/P (MAP) Pulse Ox O2 Delivery O2 Flow Rate FiO2 02/25/19 09:00 Nasal Cannula 2.0 02/25/19 08:57 100.0 02/25/19 08:00 92 02/25/19 08:00 100.0 93 20 113/71 (85) 100 02/25/19 04:00 93 02/25/19 03:57 98.4 88 20 118/55 (76) 97 02/25/19 00:00 98.6 81 18 109/53 (71) 97 02/25/19 00:00 88 02/24/19 21:00 Nasal Cannula 2.0 02/24/19 20:00 74 02/24/19 20:00 97.9 78 20 151/70 (97) 99 02/24/19 16:00 97.6 82 20 126/98 (107) 100 02/24/19 16:00 75 02/24/19 12:00 98.2 83 18 122/53 (76) 100 02/24/19 12:00 91 02/24/19 09:15 99 Nasal Cannula 2.0 28 02/24/19 09:00 Nasal Cannula 2.0 02/24/19 08:00 90 02/24/19 08:00 97.4 80 20 107/57 (74) 99 02/24/19 04:00 99.1 75 18 123/60 (81) 97 02/24/19 04:00 86 02/24/19 00:00 87 02/24/19 00:00 99.5 77 18 119/54 (75) 100 02/23/19 21:00 Nasal Cannula 2.0 02/23/19 20:00 99.1 93 18 117/58 (77) 99 02/23/19 20:00 94 02/23/19 19:59 98 Nasal Cannula 2.0 28 02/23/19 19:59 96 20 100 Nasal Cannula 2.0 28 92 20 98 02/23/19 16:45 98.7 94 17 110/66 (81) 97 02/23/19 15:31 102 02/23/19 15:16 86 20 98 Nasal Cannula 2.0 28 02/23/19 15:15 84 20 99 Nasal Cannula 2.0 28 02/23/19 12:21 80 20 99 Nasal Cannula 2.0 28 02/23/19 12:04 77 20 98 Nasal Cannula 2.0 28 02/23/19 12:00 98.3 101 17 107/59 (75) 98 02/23/19 12:00 89 02/23/19 12:00 Nasal Cannula 2.0 Intake and Output 02/24/19 02/25/19 19:00 07:00 Intake Total 30 ml Output Total 1050 ml 1900 ml Balance -1020 ml -1900 ml Tube Feeding 30 ml Output Urine Total 700 ml 1550 ml Stool Total 350 ml 350 ml Labs Test 02/23/19 03:10 02/25/19 05:10 White Blood Count 8.3 K/UL (4.8-10.8) 7.8 K/UL (4.8-10.8) Red Blood Count 3.51 M/UL (4.20-5.40) 3.73 M/UL (4.20-5.40) Hemoglobin 9.5 G/DL (12.0-16.0) 10.3 G/DL (12.0-16.0) Hematocrit 30.5 % (37.0-47.0) 32.9 % (37.0-47.0) Mean Corpuscular Volume 87 FL (80-99) 88 FL (80-99) Mean Corpuscular Hemoglobin 27.0 PG (27.0-31.0) 27.5 PG (27.0-31.0) Mean Corpuscular Hemoglobin Concent 31.1 G/DL (32.0-36.0) 31.2 G/DL (32.0-36.0) Red Cell Distribution Width 15.8 % (11.6-14.8) 16.3 % (11.6-14.8) Platelet Count 151 K/UL (150-450) 156 K/UL (150-450) Mean Platelet Volume 8.8 FL (6.5-10.1) 9.6 FL (6.5-10.1) Neutrophils (%) (Auto) 53.9 % (45.0-75.0) 61.7 % (45.0-75.0) Lymphocytes (%) (Auto) 41.2 % (20.0-45.0) 32.4 % (20.0-45.0) Monocytes (%) (Auto) 3.1 % (1.0-10.0) 4.1 % (1.0-10.0) Eosinophils (%) (Auto) 1.2 % (0.0-3.0) 1.5 % (0.0-3.0) Basophils (%) (Auto) 0.6 % (0.0-2.0) 0.4 % (0.0-2.0) Sodium Level 142 MMOL/L (136-145) 141 MMOL/L (136-145) Potassium Level 4.1 MMOL/L (3.5-5.1) 4.4 MMOL/L (3.5-5.1) Chloride Level 114 MMOL/L (98-107) 111 MMOL/L (98-107) Carbon Dioxide Level 22 MMOL/L (21-32) 23 MMOL/L (21-32) Anion Gap 6 mmol/L (5-15) 7 mmol/L (5-15) Blood Urea Nitrogen 31 mg/dL (7-18) 20 mg/dL (7-18) Creatinine 1.2 MG/DL (0.55-1.30) 1.1 MG/DL (0.55-1.30) Estimat Glomerular Filtration Rate mL/min (>60) mL/min (>60) Glucose Level 146 MG/DL (74-106) 183 MG/DL (74-106) Calcium Level 8.1 MG/DL (8.5-10.1) 8.6 MG/DL (8.5-10.1) Phosphorus Level 2.2 MG/DL (2.5-4.9) Magnesium Level 2.2 MG/DL (1.8-2.4) Total Bilirubin 0.4 MG/DL (0.2-1.0) Direct Bilirubin 0.1 MG/DL (0.0-0.3) Aspartate Amino Transf (AST/SGOT) 15 U/L (15-37) Alanine Aminotransferase (ALT/SGPT) 9 U/L (12-78) Alkaline Phosphatase 70 U/L (46-116) Total Protein 7.2 G/DL (6.4-8.2) Albumin 1.5 G/DL (3.4-5.0) Height (Feet): 5 Height (Inches): 7.00 Weight (Pounds): 204 Objective General Appearance: severe distress, lethargic, Chronically Ill Head: normocephalic, atraumatic Eyes: bilateral eye PERRL, bilateral eye EOMI ENT: dry mucus membranes Neck: full range of motion, supple, no meningismus Respiratory: chest non-tender, respiratory distress, rhonchi. CPAP+ Cardiovascular: regular rate, rhythm, no murmur, tachycardia Gastrointestinal: normal bowel sounds, non tender- Reducible abdominal wall hernia. COLOSTOMY+, GT++ Rectal: other - large sacral Stage 4 ulcer Tobin Stover MD Feb 25, 2019 10:49
--- NOTE | 2019-02-25 11:54 | Pulmonolgy Critical Care Note ---
Critical Care - Asmt/Plan Assessment/Plan: Pulmonary CCM Progress Note HPI Patient is an 83 year old woman from [facility], history of Diabetes, admitted with alteration in mental status, very high glucose readings - now resolved Noted to have a UTI - gas bubbles at the periphery of the dome of the bladder are concerning for intramural gas consistent with emphysematous cystitis, on antiibiotics per ID No reports of vomiting or diarrhea Hypernatremia improving Stable overnight Past Medical History: Diabetes, Hypertension, Chronic Obstructive Pulmonary Disease, Dyphagia, s/p Gastrostomy Tube, Anemia, Previous CVA, previous colostomy All Other Systems: limited Physical Exam Vital Signs Noted Date Time Temp Pulse Resp B/P (MAP) Pulse Ox O2 Delivery O2 Flow Rate FiO2 02/18/19 12:08 98.1 101 24 101/82 (88) 98 Room Air General Appearance: Chronically ill appearing, altered mental status, no response to verbal command,moans with physical stimuli Head: normocephalic, atraumatic Eyes: bilateral eye PERRL ENT: no angioedema, dry mucus membranes Neck: supple, no LN Respiratory: no respiratory distress, crackles - bilaterally Cardiovascular: tachycardia, HS1, HS2, normal, RRR Gastrointestinal: non tender, soft, other - Colostomy bag noted Musculoskeletal: oupper extremity localizes towards physical stimuli, Neurologic: Significantly decreased GCS patient makes moaning sound to physical stimuli is somewhat purposeful with her upper extremity, otherwise nonverbal does not follow commands Skin: no rash, no edema Impression Severe Hyperglycemia Severe Dehydration Urinary Tract Infection Sepsis Previous Diabetes Hypertension Chronic Obstructive Pulmonary Disease Dysphagia, s/p Gastrostomy Tube Anemia Previous CVA Plan - IV Antibiotics per ID - Blood/Urine cultures - Insulin SS - IV fluids PRN - Monitor labs - Pressors PRN - HHN - O2 PRN - 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 Gas within the bladder lumen is presumably related to Agarwal catheter. However, gas bubbles at the periphery of the dome of the bladder are concerning for intramural gas consistent with emphysematous cystitis. Positive for tiny right distal ureteral calculus resulting in moderate right hydronephrosis and hydroureter Bilateral intrarenal calculi Extensive retrosacral/retrococcygeal decubitus changes. Correlate with clinical findings. 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 CXR: Nil acute Critical Care - Objective Last 24 Hour Vital Signs Date Time Temp Pulse Resp B/P (MAP) Pulse Ox O2 Delivery O2 Flow Rate FiO2 02/25/19 09:00 Nasal Cannula 2.0 02/25/19 08:57 100.0 02/25/19 08:00 92 02/25/19 08:00 100.0 93 20 113/71 (85) 100 02/25/19 04:00 93 02/25/19 03:57 98.4 88 20 118/55 (76) 97 02/25/19 00:00 98.6 81 18 109/53 (71) 97 02/25/19 00:00 88 02/24/19 21:00 Nasal Cannula 2.0 02/24/19 20:00 74 02/24/19 20:00 97.9 78 20 151/70 (97) 99 02/24/19 16:00 97.6 82 20 126/98 (107) 100 02/24/19 16:00 75 02/24/19 12:00 98.2 83 18 122/53 (76) 100 02/24/19 12:00 91 Accucheck: 210 Critical Care - Subjective ROS Limited/Unobtainable: No FI02: 28 Sputum Amount: None Tube Feeding Amount: 30 I&O: Intake and Output 02/24/19 02/25/19 19:00 07:00 Intake Total 30 ml Output Total 1050 ml 1900 ml Balance -1020 ml -1900 ml Tube Feeding 30 ml Output Urine Total 700 ml 1550 ml Stool Total 350 ml 350 ml Minh Dunbar MD Feb 25, 2019 11:54
[2019-02-25 12:00] VITALS: BP 112/60
--- NOTE | 2019-02-25 12:02 | Infectious Diseases Prog Note ---
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 RECOMMENDATION: We will continue with cefepime According to surgeon wound is not likely the source of infection Wound care abdominal US Subjective ROS Limited/Unobtainable: Yes Constitutional: Reports: fever, other - T dze=350 Allergies: Coded Allergies: ALLOPURINOL (Verified Allergy, Unknown, 12/20/18) Objective Vital Signs Last 24 Hour Vital Signs Date Time Temp Pulse Resp B/P (MAP) Pulse Ox O2 Delivery O2 Flow Rate FiO2 02/25/19 09:00 Nasal Cannula 2.0 02/25/19 08:57 100.0 02/25/19 08:00 92 02/25/19 08:00 100.0 93 20 113/71 (85) 100 02/25/19 04:00 93 02/25/19 03:57 98.4 88 20 118/55 (76) 97 02/25/19 00:00 98.6 81 18 109/53 (71) 97 02/25/19 00:00 88 02/24/19 21:00 Nasal Cannula 2.0 02/24/19 20:00 74 02/24/19 20:00 97.9 78 20 151/70 (97) 99 02/24/19 16:00 97.6 82 20 126/98 (107) 100 02/24/19 16:00 75 02/24/19 12:00 98.2 83 18 122/53 (76) 100 02/24/19 12:00 91 Height (Feet): 5 Height (Inches): 7.00 Weight (Pounds): 204 General Appearance: no acute distress HEENT: mucous membranes moist Respiratory/Chest: lungs clear Cardiovascular: normal rate Abdomen: soft, non tender, other - GT feeding, s/p colostomy Extremities: no edema Skin: ulcers Neurologic/Psychiatric: other - sleeping Laboratory Tests Test 02/25/19 05:10 White Blood Count 7.8 K/UL (4.8-10.8) Red Blood Count 3.73 M/UL (4.20-5.40) L Hemoglobin 10.3 G/DL (12.0-16.0) L Hematocrit 32.9 % (37.0-47.0) L Mean Corpuscular Volume 88 FL (80-99) Mean Corpuscular Hemoglobin 27.5 PG (27.0-31.0) Mean Corpuscular Hemoglobin Concent 31.2 G/DL (32.0-36.0) L Red Cell Distribution Width 16.3 % (11.6-14.8) H Platelet Count 156 K/UL (150-450) Mean Platelet Volume 9.6 FL (6.5-10.1) Neutrophils (%) (Auto) 61.7 % (45.0-75.0) Lymphocytes (%) (Auto) 32.4 % (20.0-45.0) Monocytes (%) (Auto) 4.1 % (1.0-10.0) Eosinophils (%) (Auto) 1.5 % (0.0-3.0) Basophils (%) (Auto) 0.4 % (0.0-2.0) Sodium Level 141 MMOL/L (136-145) Potassium Level 4.4 MMOL/L (3.5-5.1) Chloride Level 111 MMOL/L (98-107) H Carbon Dioxide Level 23 MMOL/L (21-32) Anion Gap 7 mmol/L (5-15) Blood Urea Nitrogen 20 mg/dL (7-18) H Creatinine 1.1 MG/DL (0.55-1.30) Estimat Glomerular Filtration Rate mL/min (>60) Glucose Level 183 MG/DL (74-106) H Calcium Level 8.6 MG/DL (8.5-10.1) Current Medications Medications (Trade) Dose Ordered Sig/Nora Route PRN Reason Start Time Stop Time Status Last Admin Dose Admin Acetaminophen (Tylenol) 500 mg Q4H PRN ORAL Mild Pain/Temp > 100.5 02/24/19 22:15 03/26/19 22:14 02/25/19 08:27 Aspirin (Ecotrin) 81 mg DAILY ORAL 02/24/19 09:00 03/21/19 12:29 02/25/19 08:26 Atorvastatin Calcium (Lipitor) 40 mg BEDTIME ORAL 02/23/19 21:00 03/21/19 20:59 02/24/19 19:54 Cefepime HCl 1 gm/ Sodium Chloride 55 ml @ 110 mls/hr DAILY IVPB 02/24/19 09:00 02/25/19 17:59 02/25/19 08:29 Chlorhexidine Gluconate (Valentina-Hex 2%) 1 applic DAILY@2000 TOPIC 02/23/19 20:00 03/21/19 19:59 Dextrose 1,000 ml @ 50 mls/hr Q20H IV 02/24/19 16:15 03/23/19 10:59 02/25/19 11:42 Dextrose (Dextrose 50%) 25 ml Q30M PRN IV Hypoglycemia 02/23/19 16:30 03/21/19 08:59 Dextrose (Dextrose 50%) 50 ml Q30M PRN IV Hypoglycemia 02/23/19 16:30 03/21/19 08:59 Enoxaparin Sodium (Lovenox) 40 mg DAILY SUBQ 02/26/19 09:00 03/28/19 08:59 Insulin Aspart (NovoLOG) EVERY 6 HOURS SUBQ 02/23/19 18:00 03/21/19 11:29 02/25/19 11:40 Insulin Detemir (Levemir) 8 units BID SUBQ 02/25/19 09:00 03/21/19 08:59 02/25/19 08:54 Iron Sucrose 100 mg/Sodium Chloride 55 ml @ 200 mls/hr BEDTIME IV 02/23/19 21:00 02/25/19 21:17 02/24/19 19:53 Lansoprazole (Prevacid) 30 mg BID GT 02/23/19 18:00 03/25/19 17:59 02/25/19 08:26 Olanzapine (ZyPREXA) 2.5 mg BEDTIME ORAL 02/23/19 21:00 03/25/19 20:59 02/24/19 19:54 Roland Navarro MD Feb 25, 2019 12:02
--- NOTE | 2019-02-25 13:49 | Surgery Progress Note ---
Surgery Progress Note Subjective Additional Comments no acute events comfortable stable exam unchanged labs improved Objective Last 24 Hour Vital Signs Date Time Temp Pulse Resp B/P (MAP) Pulse Ox O2 Delivery O2 Flow Rate FiO2 02/25/19 12:00 85 02/25/19 12:00 97.4 78 18 112/60 (77) 100 02/25/19 09:00 Nasal Cannula 2.0 02/25/19 08:57 100.0 02/25/19 08:00 92 02/25/19 08:00 100.0 93 20 113/71 (85) 100 02/25/19 04:00 93 02/25/19 03:57 98.4 88 20 118/55 (76) 97 02/25/19 00:00 98.6 81 18 109/53 (71) 97 02/25/19 00:00 88 02/24/19 21:00 Nasal Cannula 2.0 02/24/19 20:00 74 02/24/19 20:00 97.9 78 20 151/70 (97) 99 02/24/19 16:00 97.6 82 20 126/98 (107) 100 02/24/19 16:00 75 I&O Intake and Output 02/24/19 02/25/19 19:00 07:00 Intake Total 30 ml Output Total 1050 ml 1900 ml Balance -1020 ml -1900 ml Tube Feeding 30 ml Output Urine Total 700 ml 1550 ml Stool Total 350 ml 350 ml Dressing: saturated Wound: other Drains: other Cardiovascular: RSR Respiratory: decreased breath sounds Abdomen: soft, present bowel sounds, other, non-distended Extremities: no cyanosis, other Laboratory Tests Test 02/25/19 05:10 White Blood Count 7.8 K/UL (4.8-10.8) Red Blood Count 3.73 M/UL (4.20-5.40) L Hemoglobin 10.3 G/DL (12.0-16.0) L Hematocrit 32.9 % (37.0-47.0) L Mean Corpuscular Volume 88 FL (80-99) Mean Corpuscular Hemoglobin 27.5 PG (27.0-31.0) Mean Corpuscular Hemoglobin Concent 31.2 G/DL (32.0-36.0) L Red Cell Distribution Width 16.3 % (11.6-14.8) H Platelet Count 156 K/UL (150-450) Mean Platelet Volume 9.6 FL (6.5-10.1) Neutrophils (%) (Auto) 61.7 % (45.0-75.0) Lymphocytes (%) (Auto) 32.4 % (20.0-45.0) Monocytes (%) (Auto) 4.1 % (1.0-10.0) Eosinophils (%) (Auto) 1.5 % (0.0-3.0) Basophils (%) (Auto) 0.4 % (0.0-2.0) Sodium Level 141 MMOL/L (136-145) Potassium Level 4.4 MMOL/L (3.5-5.1) Chloride Level 111 MMOL/L (98-107) H Carbon Dioxide Level 23 MMOL/L (21-32) Anion Gap 7 mmol/L (5-15) Blood Urea Nitrogen 20 mg/dL (7-18) H Creatinine 1.1 MG/DL (0.55-1.30) Estimat Glomerular Filtration Rate mL/min (>60) Glucose Level 183 MG/DL (74-106) H Calcium Level 8.6 MG/DL (8.5-10.1) Plan Problems: (1) Decubitus ulcer of sacral region, stage 4 Assessment & Plan: Pt presented on admission with full thickness stage 4 Sacral Pressure Injury with undermining. Bone is palpable. Base of has beefy red granulation with scattered small purple areas. No odor noted .Scant serous exudate noted . Edges pink and flat with some sloth. DTPI noted to lateral R foot. .Base of wound purple and fluctuant in center with surrounding maroon discoloration Non-blanchable erythema with fluctuance noted to posterior and medial R heel. L heel boggy but blanchable. Tx.Plan: Cleanse Sacral wound with Saline. Loosely pack with Hydrogel Impregnated Kerlix. Cover with ABD pads and secure with Paper Tape or Tegaderm Daily and prn. Apply Cavilon Skin Barrier to R and Heel and lateral R heel. Ciover with Optifoam drsg. Change every 7 days and PRN. Apply Cavilon Skin Barrier to L heel. Cover with Optifoam drsg. Change every 7 days and prn. APM/VIJI Mattress Overlay. Reposition at least every 2hours or as tolerated. Off-load heels with Pillow. (2) Sepsis Assessment & Plan: tachycardia, leukocytosis, anemia, abnormal labs, altered status - improving wound evaluate and tho not as optimal as prior unlikely etiology of infection IV abx as per ID cont with current care pland d/c planning trend labs will follow with recs thank you Mauro Morrow Feb 25, 2019 13:49
--- NOTE | 2019-02-25 14:15 | Nephrology Progress Note ---
Assessment/Plan Problem List: (1) Renal failure (ARF), acute on chronic (2) Hypotension (3) Anemia (4) Colostomy status (5) PEG (percutaneous endoscopic gastrostomy) status (6) Electrolyte imbalance Assessment Acute renal failure ? Underlying CKD Severe Dehydration Hyperglycemia- DM OOC A1c High Severe underlying Anemia Electrolyte imbalance UTI PEG Colostomy Severe HypoAlbuminemia Plan Plan; K and Phos and Mag supplement as needed D5W Hydrate Glucose check Albumin bolus as needed K mag Phos supplement as needed monitor lytes, and H&H Per orders Subjective ROS Limited/Unobtainable: No Constitutional: Reports: malaise, weakness Objective Objective Last 24 Hour Vital Signs Date Time Temp Pulse Resp B/P (MAP) Pulse Ox O2 Delivery O2 Flow Rate FiO2 02/25/19 12:00 85 02/25/19 12:00 97.4 78 18 112/60 (77) 100 02/25/19 09:00 Nasal Cannula 2.0 02/25/19 08:57 100.0 02/25/19 08:00 92 02/25/19 08:00 100.0 93 20 113/71 (85) 100 02/25/19 04:00 93 02/25/19 03:57 98.4 88 20 118/55 (76) 97 02/25/19 00:00 98.6 81 18 109/53 (71) 97 02/25/19 00:00 88 02/24/19 21:00 Nasal Cannula 2.0 02/24/19 20:00 74 02/24/19 20:00 97.9 78 20 151/70 (97) 99 02/24/19 16:00 97.6 82 20 126/98 (107) 100 02/24/19 16:00 75 Intake and Output 02/24/19 02/25/19 19:00 07:00 Intake Total 30 ml Output Total 1050 ml 1900 ml Balance -1020 ml -1900 ml Tube Feeding 30 ml Output Urine Total 700 ml 1550 ml Stool Total 350 ml 350 ml Laboratory Tests 02/25/19 05:10: White Blood Count 7.8, Red Blood Count 3.73L, Hemoglobin 10.3L, Hematocrit 32.9L , Mean Corpuscular Volume 88, Mean Corpuscular Hemoglobin 27.5, Mean Corpuscular Hemoglobin Concent 31.2L, Red Cell Distribution Width 16.3H, Platelet Count 156, Mean Platelet Volume 9.6, Neutrophils (%) (Auto) 61.7, Lymphocytes (%) (Auto) 32.4, Monocytes (%) (Auto) 4.1, Eosinophils (%) (Auto) 1.5, Basophils (%) (Auto) 0.4, Sodium Level 141, Potassium Level 4.4, Chloride Level 111H, Carbon Dioxide Level 23, Anion Gap 7, Blood Urea Nitrogen 20H, Creatinine 1.1, Estimat Glomerular Filtration Rate , Glucose Level 183H, Calcium Level 8.6 Height (Feet): 5 Height (Inches): 7.00 Weight (Pounds): 204 General Appearance: no apparent distress, lethargic Cardiovascular: normal rate Respiratory/Chest: decreased breath sounds Abdomen: soft Servando Cifuentes MD Feb 25, 2019 14:15
[2019-02-25 16:00] VITALS: BP 126/65
--- NOTE | 2019-02-25 19:08 | NUR ---
HAND-OFF: Report given to Benjie Romero RN. Plan of care endorsed.
--- NOTE | 2019-02-25 19:10 | NUR ---
NURSE NOTES: Received report from Anabell Ramírez RN. Patient in bed AAO X1-2 with no complaints of acute adkins or discomfort noted. Kept clean, dry, and comfortable in bed. IV line intact and patent with prescribed fluids running as ordered. Placed on continuous cardiac monitoring per protocol. FC intact and tubing patent. Colostomy care rendered. Safety precaution in place; siderails X3 up, call light within reach, bed in lowest position, brakes and alarm on at all times. Needs and wants anticipated attended. Will continue plan of care and monitor for any changes noted. Jane PAREDES scheduled for tomorrow 02/26/19 NPO at [place]
[2019-02-25 20:00] VITALS: BP 119/52
[2019-02-25] MEDS: OLANZapine 2.5mg tab ORAL SCH (20:48)
[2019-02-25] MEDS: Atorvastatin 20mg tab ORAL SCH (20:48)
--- NOTE | 2019-02-25 21:48 | Cardiology Progress Note ---
Assessment/Plan Assessment/Plan 1. Sinus tachycardia, resolved, continue hydration. 2. Hypoxemic hypercarbic respiratory failure, pulmonary f/u. 3. Severe hypernatremia secondary volume contraction, resolved. 4. MANUEL, resolved, creat at 1.1. 5. Anemia Subjective Subjective Sinus rhythm at rate of 80. Objective Last 24 Hour Vital Signs Date Time Temp Pulse Resp B/P (MAP) Pulse Ox O2 Delivery O2 Flow Rate FiO2 02/25/19 21:00 Nasal Cannula 2.0 02/25/19 16:00 80 02/25/19 16:00 97.6 77 18 126/65 (85) 100 02/25/19 12:00 85 02/25/19 12:00 97.4 78 18 112/60 (77) 100 02/25/19 09:00 Nasal Cannula 2.0 02/25/19 08:57 100.0 02/25/19 08:00 92 02/25/19 08:00 100.0 93 20 113/71 (85) 100 02/25/19 04:00 93 02/25/19 03:57 98.4 88 20 118/55 (76) 97 02/25/19 00:00 98.6 81 18 109/53 (71) 97 02/25/19 00:00 88 Intake and Output 02/24/19 02/25/19 18:59 06:59 Intake Total 30 ml Output Total 1050 ml 1900 ml Balance -1020 ml -1900 ml Tube Feeding 30 ml Output Urine Total 700 ml 1550 ml Stool Total 350 ml 350 ml Laboratory Tests Test 02/25/19 05:10 White Blood Count 7.8 K/UL (4.8-10.8) Red Blood Count 3.73 M/UL (4.20-5.40) L Hemoglobin 10.3 G/DL (12.0-16.0) L Hematocrit 32.9 % (37.0-47.0) L Mean Corpuscular Volume 88 FL (80-99) Mean Corpuscular Hemoglobin 27.5 PG (27.0-31.0) Mean Corpuscular Hemoglobin Concent 31.2 G/DL (32.0-36.0) L Red Cell Distribution Width 16.3 % (11.6-14.8) H Platelet Count 156 K/UL (150-450) Mean Platelet Volume 9.6 FL (6.5-10.1) Neutrophils (%) (Auto) 61.7 % (45.0-75.0) Lymphocytes (%) (Auto) 32.4 % (20.0-45.0) Monocytes (%) (Auto) 4.1 % (1.0-10.0) Eosinophils (%) (Auto) 1.5 % (0.0-3.0) Basophils (%) (Auto) 0.4 % (0.0-2.0) Sodium Level 141 MMOL/L (136-145) Potassium Level 4.4 MMOL/L (3.5-5.1) Chloride Level 111 MMOL/L (98-107) H Carbon Dioxide Level 23 MMOL/L (21-32) Anion Gap 7 mmol/L (5-15) Blood Urea Nitrogen 20 mg/dL (7-18) H Creatinine 1.1 MG/DL (0.55-1.30) Estimat Glomerular Filtration Rate mL/min (>60) Glucose Level 183 MG/DL (74-106) H Calcium Level 8.6 MG/DL (8.5-10.1) Objective HEENT: normocephalic, atraumatic, bilateral eye PERRL, + dry mucus membranes Neck: - JVD, no carotid bruit Respiratory: crackles bilaterally Cardiovascular: Normal S1S2, no murmurs, gallops or rubs. Gastrointestinal: non tender, soft, non-distended, colostomy bag in the left mid abdomen Musculoskeletal: No edema, clubbing or cyanosis. Logan Arias MD Feb 25, 2019 21:48
--- NOTE | 2019-02-25 23:37 | General Progress Note ---
Assessment/Plan Problem List: (1) Renal failure (ARF), acute on chronic ICD Codes: N17.9 - Acute kidney failure, unspecified; N18.9 - Chronic kidney disease, unspecified SNOMED: 579013819 (2) Altered level of consciousness ICD Codes: R40.4 - Transient alteration of awareness SNOMED: 0564936 (3) Hypotension ICD Codes: I95.9 - Hypotension, unspecified SNOMED: 83569252 (4) Anemia ICD Codes: D64.9 - Anemia, unspecified SNOMED: 462158506 (5) Sepsis ICD Codes: A41.9 - Sepsis, unspecified organism SNOMED: 00825217 (6) Electrolyte imbalance ICD Codes: E87.8 - Other disorders of electrolyte and fluid balance, not elsewhere classified SNOMED: 776751802 Status: progressing Assessment/Plan: still altered and confused septic niddm htn arf lyte abnormality dc planning check labs and reivewed chart Subjective ROS Limited/Unobtainable: Yes Allergies: Coded Allergies: ALLOPURINOL (Verified Allergy, Unknown, 12/20/18) Objective Last 24 Hour Vital Signs Date Time Temp Pulse Resp B/P (MAP) Pulse Ox O2 Delivery O2 Flow Rate FiO2 02/25/19 21:00 Nasal Cannula 2.0 02/25/19 20:00 98.4 80 18 119/52 (74) 100 02/25/19 16:00 80 02/25/19 16:00 97.6 77 18 126/65 (85) 100 02/25/19 12:00 85 02/25/19 12:00 97.4 78 18 112/60 (77) 100 02/25/19 09:00 Nasal Cannula 2.0 02/25/19 08:57 100.0 02/25/19 08:00 92 02/25/19 08:00 100.0 93 20 113/71 (85) 100 02/25/19 04:00 93 02/25/19 03:57 98.4 88 20 118/55 (76) 97 02/25/19 00:00 98.6 81 18 109/53 (71) 97 02/25/19 00:00 88 Intake and Output 02/24/19 02/25/19 19:00 07:00 Intake Total 30 ml Output Total 1050 ml 1900 ml Balance -1020 ml -1900 ml Tube Feeding 30 ml Output Urine Total 700 ml 1550 ml Stool Total 350 ml 350 ml Laboratory Tests 02/25/19 05:10: White Blood Count 7.8, Red Blood Count 3.73L, Hemoglobin 10.3L, Hematocrit 32.9L , Mean Corpuscular Volume 88, Mean Corpuscular Hemoglobin 27.5, Mean Corpuscular Hemoglobin Concent 31.2L, Red Cell Distribution Width 16.3H, Platelet Count 156, Mean Platelet Volume 9.6, Neutrophils (%) (Auto) 61.7, Lymphocytes (%) (Auto) 32.4, Monocytes (%) (Auto) 4.1, Eosinophils (%) (Auto) 1.5, Basophils (%) (Auto) 0.4, Sodium Level 141, Potassium Level 4.4, Chloride Level 111H, Carbon Dioxide Level 23, Anion Gap 7, Blood Urea Nitrogen 20H, Creatinine 1.1, Estimat Glomerular Filtration Rate , Glucose Level 183H, Calcium Level 8.6 Height (Feet): 5 Height (Inches): 7.00 Weight (Pounds): 204 Neck: normal alignment Cardiovascular: normal rate Respiratory/Chest: lungs clear Danial Walden MD Feb 25, 2019 23:37
[2019-02-26] VITALS: BP 121/54
--- NOTE | 2019-02-26 03:38 | NUR ---
NURSE NOTES: Patient asleep in bed. Will continue to monitor.
[2019-02-26 04:00] VITALS: BP 124/76
[2019-02-26] MEDS: NovoLOG Insulin Flexpen SUBQ SCH ×4 (05:19→17:27)
[2019-02-26] MEDS: Acetaminophen 500mg (ES) tab ORAL PRN ×2 (06:09→09:55)
--- NOTE | 2019-02-26 07:19 | General Progress Note ---
Assessment/Plan Problem List: (1) Diabetes mellitus out of control ICD Codes: E11.65 - Type 2 diabetes mellitus with hyperglycemia SNOMED: 01040976, 068453269 (2) Decubitus ulcer of sacral region, stage 4 ICD Codes: L89.154 - Pressure ulcer of sacral region, stage 4 SNOMED: 129520032, 390150903 (3) Sepsis ICD Codes: A41.9 - Sepsis, unspecified organism SNOMED: 47544497 (4) Electrolyte imbalance ICD Codes: E87.8 - Other disorders of electrolyte and fluid balance, not elsewhere classified SNOMED: 167072177 (5) Altered level of consciousness ICD Codes: R40.4 - Transient alteration of awareness SNOMED: 8389311 (6) Renal failure (ARF), acute on chronic ICD Codes: N17.9 - Acute kidney failure, unspecified; N18.9 - Chronic kidney disease, unspecified SNOMED: 666559183 (7) PEG (percutaneous endoscopic gastrostomy) status ICD Codes: Z93.1 - Gastrostomy status SNOMED: 286409777, 159906053 (8) Colostomy status ICD Codes: Z93.3 - Colostomy status SNOMED: 96958783, 013344496, 984327610 Status: progressing Assessment/Plan: continue Levemir 8 units bid continue Novolog sliding scale 4 times daily Subjective ROS Limited/Unobtainable: Yes Allergies: Coded Allergies: ALLOPURINOL (Verified Allergy, Unknown, 12/20/18) Subjective events noted glucose values improved Item Value Date Time Bedside Blood Glucose 135 mg/dl H 02/26/19 0600 Bedside Blood Glucose 158 mg/dl H 02/26/19 0000 Bedside Blood Glucose 189 mg/dl H 02/25/19 1706 Bedside Blood Glucose 210 mg/dl H 02/25/19 1140 Bedside Blood Glucose 167 mg/dl H 02/25/19 0600 Bedside Blood Glucose 167 mg/dl H 02/25/19 0854 Bedside Blood Glucose 174 mg/dl H 02/24/19 2308 Objective Last 24 Hour Vital Signs Date Time Temp Pulse Resp B/P (MAP) Pulse Ox O2 Delivery O2 Flow Rate FiO2 02/26/19 04:00 99.9 81 19 124/76 (92) 95 02/26/19 04:00 88 02/26/19 00:00 93 02/26/19 00:00 98.7 84 19 121/54 (76) 100 02/25/19 21:00 Nasal Cannula 2.0 02/25/19 20:00 81 02/25/19 20:00 98.4 80 18 119/52 (74) 100 02/25/19 19:00 98 Nasal Cannula 2.0 28 02/25/19 19:00 90 18 98 Nasal Cannula 2.0 28 02/25/19 16:00 80 02/25/19 16:00 97.6 77 18 126/65 (85) 100 02/25/19 12:00 85 02/25/19 12:00 97.4 78 18 112/60 (77) 100 02/25/19 09:00 Nasal Cannula 2.0 02/25/19 08:57 100.0 02/25/19 08:00 92 02/25/19 08:00 100.0 93 20 113/71 (85) 100 Intake and Output 02/25/19 02/26/19 19:00 07:00 Intake Total 50 ml 150 ml Output Total 1200 ml Balance 50 ml -1050 ml Tube Feeding 50 ml 150 ml Output Urine Total 900 ml Stool Total 300 ml Height (Feet): 5 Height (Inches): 7.00 Weight (Pounds): 198 General Appearance: no apparent distress Neck: normal alignment Respiratory/Chest: decreased breath sounds Abdomen: normal bowel sounds Objective Current Medications Medications (Trade) Dose Ordered Sig/Nora Route PRN Reason Start Time Stop Time Status Last Admin Dose Admin Acetaminophen (Tylenol) 500 mg Q4H PRN ORAL Mild Pain/Temp > 100.5 02/24/19 22:15 03/26/19 22:14 02/26/19 06:09 Aspirin (Ecotrin) 81 mg DAILY ORAL 02/24/19 09:00 03/21/19 12:29 02/25/19 08:26 Atorvastatin Calcium (Lipitor) 40 mg BEDTIME ORAL 02/23/19 21:00 03/21/19 20:59 02/25/19 20:48 Cefepime HCl 1 gm/ Sodium Chloride 55 ml @ 110 mls/hr DAILY IVPB 02/24/19 09:00 03/04/19 08:59 02/25/19 08:29 Dextrose 1,000 ml @ 50 mls/hr Q20H IV 02/24/19 16:15 03/23/19 10:59 02/25/19 23:58 Dextrose (Dextrose 50%) 25 ml Q30M PRN IV Hypoglycemia 02/23/19 16:30 03/21/19 08:59 Dextrose (Dextrose 50%) 50 ml Q30M PRN IV Hypoglycemia 02/23/19 16:30 03/21/19 08:59 Enoxaparin Sodium (Lovenox) 40 mg DAILY SUBQ 02/26/19 09:00 03/28/19 08:59 Insulin Aspart (NovoLOG) EVERY 6 HOURS SUBQ 02/23/19 18:00 03/21/19 11:29 02/26/19 00:00 Insulin Detemir (Levemir) 8 units BID SUBQ 02/25/19 09:00 03/21/19 08:59 02/25/19 17:06 Lansoprazole (Prevacid) 30 mg BID GT 02/23/19 18:00 03/25/19 17:59 02/25/19 17:05 Olanzapine (ZyPREXA) 2.5 mg BEDTIME ORAL 02/23/19 21:00 03/25/19 20:59 02/25/19 20:48 Pablo Day MD Feb 26, 2019 07:19
--- NOTE | 2019-02-26 07:26 | NUR ---
HAND-OFF: Report given to Del Leal RN. Patient in bed with no S/S of distress. Endorsed plan of care.
--- NOTE | 2019-02-26 07:50 | NUR ---
NURSE NOTES: Received report from HELEN Krause. Patient in bed resting, no active s/s cardiac, respiratory distress noticed at this time. Patient AOx1-2 SR with HR 81, on 2L oxygen via NC. Endorsed patient NPO since midnight for US abd schedule for today 02/26/19. Patient on P200 mattress. IV on right FA 22G, 20G, asymptomatic, patent, intact. IV fluid running as prescribed rate. Bed in lowest position, side rails up x2, call light within reach. Will continue to monitor.
[2019-02-26 08:00] VITALS: BP 138/68
[2019-02-26] MEDS: Aspirin EC 81mg tab ORAL SCH (08:16)
[2019-02-26] MEDS: Cefepime HCl 1 GM in NS 55 ML IVPB SCH (08:18)
[2019-02-26] MEDS: Enoxaparin 40mg Inj SUBQ SCH (08:20)
[2019-02-26] MEDS: Levemir Flexpen SUBQ SCH ×2 (08:24→17:26)
--- NOTE | 2019-02-26 08:40 | Consultation ---
History of Present Illness General Date patient seen: Feb 26, 2019 Present Illness Allergies: Coded Allergies: ALLOPURINOL (Verified Allergy, Unknown, 12/20/18) Medication History Scheduled Acetaminophen 160MG/5ML* (Acetaminophen*), 20 ML GT DAILY, (Reported) Amino Acids/Protein Hydrolys (Pro-Stat Liquid), 30 ML GT THREE TIMES A DAY, ( Reported) Ascorbic Acid* (Ascorbic Acid*), 500 MG GT DAILY, (Reported) Citric Acid/Sodium Citrate (Sod Citrate-Citric Acid Soln), 30 ML GT BID, ( Reported) Folic Acid* (Folic Acid*), 1 MG GT DAILY, (Reported) Heparin Sod (Porcine) (Heparin Sodium*), 5,000 UNITS SUBQ EVERY 12 HOURS, ( Reported) Multivits W-Min/Ferrous Gluc (Multivitamin-Mineral Liquid), 15 ML GT DAILY, ( Reported) Naph,Mb-Db/K Ph,Mbdb (Phos-Nak Packet), 1 EACH GT TID, (Reported) Risperidone (Risperidone), 0.25 MG GT HS, (Reported) Zinc Sulfate (Zinc Sulfate*), 220 MG GT DAILY, (Reported) Scheduled PRN Acetaminophen* (Acetaminophen 325MG Tablet*), 325 MG GT Q4H PRN for Mild Pain/ Temp > 100.5, (Reported) Hydralazine Hcl* (Hydralazine Hcl*), 10 MG ORAL Q4HR PRN for For High Blood Pressure, (Reported) Ondansetron* (Zofran*), 4 MG GT Q4HR PRN for Nausea & Vomiting, (Reported) Patient History Healthcare decision maker Resuscitation status Full Code Advanced Directive on File Physical Exam Last 24 Hour Vital Signs Date Time Temp Pulse Resp B/P (MAP) Pulse Ox O2 Delivery O2 Flow Rate FiO2 02/26/19 08:00 98.6 68 20 138/68 (91) 100 02/26/19 04:00 99.9 81 19 124/76 (92) 95 02/26/19 04:00 88 02/26/19 00:00 93 02/26/19 00:00 98.7 84 19 121/54 (76) 100 02/25/19 21:00 Nasal Cannula 2.0 02/25/19 20:00 81 02/25/19 20:00 98.4 80 18 119/52 (74) 100 02/25/19 19:00 98 Nasal Cannula 2.0 28 02/25/19 19:00 90 18 98 Nasal Cannula 2.0 28 02/25/19 16:00 80 02/25/19 16:00 97.6 77 18 126/65 (85) 100 02/25/19 12:00 85 02/25/19 12:00 97.4 78 18 112/60 (77) 100 02/25/19 09:00 Nasal Cannula 2.0 02/25/19 08:57 100.0 Intake and Output 02/25/19 02/26/19 19:00 07:00 Intake Total 50 ml 150 ml Output Total 1200 ml Balance 50 ml -1050 ml Tube Feeding 50 ml 150 ml Output Urine Total 900 ml Stool Total 300 ml Height (Feet): 5 Height (Inches): 7.00 Weight (Pounds): 198 Medications Current Medications Medications (Trade) Dose Ordered Sig/Nora Route PRN Reason Start Time Stop Time Status Last Admin Dose Admin Acetaminophen (Tylenol) 500 mg Q4H PRN ORAL Mild Pain/Temp > 100.5 02/24/19 22:15 03/26/19 22:14 02/26/19 06:09 Aspirin (Ecotrin) 81 mg DAILY ORAL 02/24/19 09:00 03/21/19 12:29 02/26/19 08:16 Atorvastatin Calcium (Lipitor) 40 mg BEDTIME ORAL 02/23/19 21:00 03/21/19 20:59 02/25/19 20:48 Cefepime HCl 1 gm/ Sodium Chloride 55 ml @ 110 mls/hr DAILY IVPB 02/24/19 09:00 03/04/19 08:59 02/26/19 08:18 Dextrose 1,000 ml @ 50 mls/hr Q20H IV 02/24/19 16:15 03/23/19 10:59 02/25/19 23:58 Dextrose (Dextrose 50%) 25 ml Q30M PRN IV Hypoglycemia 02/23/19 16:30 03/21/19 08:59 Dextrose (Dextrose 50%) 50 ml Q30M PRN IV Hypoglycemia 02/23/19 16:30 03/21/19 08:59 Enoxaparin Sodium (Lovenox) 40 mg DAILY SUBQ 02/26/19 09:00 9/25/19 08:59 02/26/19 08:20 Insulin Aspart (NovoLOG) EVERY 6 HOURS SUBQ 02/23/19 18:00 03/21/19 11:29 02/26/19 00:00 Insulin Detemir (Levemir) 8 units BID SUBQ 02/25/19 09:00 03/21/19 08:59 02/26/19 08:24 Lansoprazole (Prevacid) 30 mg BID GT 02/23/19 18:00 03/25/19 17:59 02/26/19 08:16 Olanzapine (ZyPREXA) 2.5 mg BEDTIME ORAL 02/23/19 21:00 03/25/19 20:59 02/25/19 20:48 Assessment/Plan Assessment/Plan: (1) H/o CVA (2) Sacral decubitus ulcer seen dictated Landon Lyon Feb 26, 2019 08:40
--- NOTE | 2019-02-26 09:30 | NUR ---
CASE MANAGEMENT: REVIEW 02/26/2019 SI:SEPSIS. HYPEROSMOLAR HYPERGLYCEMIA. T 99.9 HR 81 RR 19 B/P 124/76 SATS 95% ON 2L/NC NO LABS TODAY IS:IVF @ 100 mL/HR PROTONIX IV Q12H LIPITOR PO QHS LEVEMIR SUBQ BID ASA PO QD INSULIN ASPART SUBQ AC/HS CEFEPIME IV Q24H TELE DCP: PATIENT TO BE DISCHARGED TO SNF ONCE MEDICALLY CLEARED. PLAN OF CARE: CONTINUED GLYCEMIC CONTROL AND MENTIONING IVF AND IV ANTIBx US ABD
[2019-02-26 11:31] LABS: ALBUMIN 1.4 G/DL (3.4-5.0); ALKALINE PHOSPHATASE 72 U/L (46-116); ASPARTATE AMINO TRANSFERASE 11 U/L (15-37); BILIRUBIN,DIRECT 0.1 MG/DL (0.0-0.3); BILIRUBIN,TOTAL 0.4 MG/DL (0.2-1.0); PHOSPHORUS 2.1 MG/DL (2.5-4.9)
--- NOTE | 2019-02-26 11:45 | NUR ---
NURSE NOTES: Dr. Walden made aware patient c/o headache 03/13, one dose of Tylenol 500mg given, still c/o headache. Per Dr. Walden, call Dr. Villa for pain. Called Dr. Villa's office, received PA's, covering Dr. Villa, number. Called ANISA Lyon, for headache. Per ANISA Lyon, change Tylenol 500mg to 650mg. Order noted, entered, carried out. Will continue to monitor.
[2019-02-26 11:51] LABS: ALANINE AMINOTRANSFERASE < 6 U/L (12-78)
[2019-02-26 12:00] VITALS: BP 139/69
--- NOTE | 2019-02-26 12:35 | Infectious Diseases Prog Note ---
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 RECOMMENDATION: We will continue with cefepime According to surgeon wound is not likely the source of infection Wound care Will f/u abdominal US Subjective ROS Limited/Unobtainable: Yes Constitutional: Reports: other - headache Respiratory: Reports: no symptoms Gastrointestinal/Abdominal: Reports: no symptoms Allergies: Coded Allergies: ALLOPURINOL (Verified Allergy, Unknown, 12/20/18) Objective Vital Signs Last 24 Hour Vital Signs Date Time Temp Pulse Resp B/P (MAP) Pulse Ox O2 Delivery O2 Flow Rate FiO2 02/26/19 09:00 Nasal Cannula 2.0 02/26/19 08:00 98.6 68 20 138/68 (91) 100 02/26/19 08:00 79 02/26/19 04:00 99.9 81 19 124/76 (92) 95 02/26/19 04:00 88 02/26/19 00:00 93 02/26/19 00:00 98.7 84 19 121/54 (76) 100 02/25/19 21:00 Nasal Cannula 2.0 02/25/19 20:00 81 02/25/19 20:00 98.4 80 18 119/52 (74) 100 02/25/19 19:00 98 Nasal Cannula 2.0 28 02/25/19 19:00 90 18 98 Nasal Cannula 2.0 28 02/25/19 16:00 80 02/25/19 16:00 97.6 77 18 126/65 (85) 100 Height (Feet): 5 Height (Inches): 7.00 Weight (Pounds): 198 General Appearance: no acute distress HEENT: mucous membranes moist Respiratory/Chest: lungs clear Cardiovascular: normal rate Abdomen: soft, non tender, other - s/p GT & colostomy Skin: ulcers Neurologic/Psychiatric: alert, responsive Laboratory Tests Test 02/26/19 11:00 Phosphorus Level 2.1 MG/DL (2.5-4.9) L Magnesium Level 1.7 MG/DL (1.8-2.4) L Total Bilirubin 0.4 MG/DL (0.2-1.0) Direct Bilirubin 0.1 MG/DL (0.0-0.3) Aspartate Amino Transf (AST/SGOT) 11 U/L (15-37) L Alanine Aminotransferase (ALT/SGPT) < 6 U/L (12-78) L Alkaline Phosphatase 72 U/L (46-116) Total Protein 7.2 G/DL (6.4-8.2) Albumin 1.4 G/DL (3.4-5.0) L Current Medications Medications (Trade) Dose Ordered Sig/Nora Route PRN Reason Start Time Stop Time Status Last Admin Dose Admin Acetaminophen (Tylenol) 650 mg Q4H PRN ORAL Mild Pain/Temp > 100.5 02/26/19 11:45 03/26/19 22:14 Aspirin (Ecotrin) 81 mg DAILY ORAL 02/24/19 09:00 03/21/19 12:29 02/26/19 08:16 Atorvastatin Calcium (Lipitor) 40 mg BEDTIME ORAL 02/23/19 21:00 03/21/19 20:59 02/25/19 20:48 Cefepime HCl 1 gm/ Sodium Chloride 55 ml @ 110 mls/hr DAILY IVPB 02/24/19 09:00 03/04/19 08:59 02/26/19 08:18 Dextrose 1,000 ml @ 50 mls/hr Q20H IV 02/24/19 16:15 03/23/19 10:59 02/25/19 23:58 Dextrose (Dextrose 50%) 25 ml Q30M PRN IV Hypoglycemia 02/23/19 16:30 03/21/19 08:59 Dextrose (Dextrose 50%) 50 ml Q30M PRN IV Hypoglycemia 02/23/19 16:30 03/21/19 08:59 Enoxaparin Sodium (Lovenox) 40 mg DAILY SUBQ 02/26/19 09:00 03/28/19 08:59 02/26/19 08:20 Insulin Aspart (NovoLOG) EVERY 6 HOURS SUBQ 02/23/19 18:00 03/21/19 11:29 02/26/19 00:00 Insulin Detemir (Levemir) 8 units BID SUBQ 02/25/19 09:00 03/21/19 08:59 02/26/19 08:24 Lansoprazole (Prevacid) 30 mg BID GT 02/23/19 18:00 03/25/19 17:59 02/26/19 08:16 Olanzapine (ZyPREXA) 2.5 mg BEDTIME ORAL 02/23/19 21:00 03/25/19 20:59 02/25/19 20:48 Roland Navarro MD Feb 26, 2019 12:35
--- NOTE | 2019-02-26 13:02 | GI Progress Note ---
Assessment/Plan Problems: (1) Electrolyte imbalance ICD Codes: E87.8 - Other disorders of electrolyte and fluid balance, not elsewhere classified SNOMED: 793311413 (2) Sepsis ICD Codes: A41.9 - Sepsis, unspecified organism SNOMED: 30557792 (3) Decubitus ulcer of sacral region, stage 4 ICD Codes: L89.154 - Pressure ulcer of sacral region, stage 4 SNOMED: 566783421, 079399340 (4) Altered level of consciousness ICD Codes: R40.4 - Transient alteration of awareness SNOMED: 0505418 (5) Renal failure (ARF), acute on chronic ICD Codes: N17.9 - Acute kidney failure, unspecified; N18.9 - Chronic kidney disease, unspecified SNOMED: 824048079 (6) Hypotension ICD Codes: I95.9 - Hypotension, unspecified SNOMED: 49891888 (7) Anemia ICD Codes: D64.9 - Anemia, unspecified SNOMED: 129439221 (8) Colostomy status ICD Codes: Z93.3 - Colostomy status SNOMED: 65754700, 519873311, 645061362 (9) PEG (percutaneous endoscopic gastrostomy) status ICD Codes: Z93.1 - Gastrostomy status SNOMED: 459084723, 518739495 Status: stable, unchanged Status Narrative Discussed with Dr. Vora. Assessment/Plan AMS G Tube dependent colostomy dependent hypernatremia no plans for GI procedures at this time, only if emergent cont GTF to goal electrolyte correction OB stool r/o GI bleed monitor H&H, prn transfusions bowel regimen ppi hold iron supplementation given elevated ferritin levels GT/colostomy site care fu labs The patient was seen and examined at bedside and all new and available data was reviewed in the patients chart. I agree with the above findings, impression and plan. (Patient seen earlier today. Signature stamp does not reflect patient encounter time.). - Horacio Vora MD Subjective Subjective limited Objective Last 24 Hour Vital Signs Date Time Temp Pulse Resp B/P (MAP) Pulse Ox O2 Delivery O2 Flow Rate FiO2 02/26/19 12:00 80 02/26/19 12:00 98.3 70 20 139/69 (92) 100 02/26/19 09:00 Nasal Cannula 2.0 8/26/19 08:00 98.6 68 20 138/68 (91) 100 02/26/19 08:00 79 02/26/19 04:00 99.9 81 19 124/76 (92) 95 02/26/19 04:00 88 02/26/19 00:00 93 02/26/19 00:00 98.7 84 19 121/54 (76) 100 02/25/19 21:00 Nasal Cannula 2.0 02/25/19 20:00 81 02/25/19 20:00 98.4 80 18 119/52 (74) 100 02/25/19 19:00 98 Nasal Cannula 2.0 28 02/25/19 19:00 90 18 98 Nasal Cannula 2.0 28 02/25/19 16:00 80 02/25/19 16:00 97.6 77 18 126/65 (85) 100 Intake and Output 02/25/19 02/26/19 19:00 07:00 Intake Total 50 ml 150 ml Output Total 1200 ml Balance 50 ml -1050 ml Tube Feeding 50 ml 150 ml Output Urine Total 900 ml Stool Total 300 ml Laboratory Tests Test 02/26/19 11:00 Phosphorus Level 2.1 MG/DL (2.5-4.9) L Magnesium Level 1.7 MG/DL (1.8-2.4) L Total Bilirubin 0.4 MG/DL (0.2-1.0) Direct Bilirubin 0.1 MG/DL (0.0-0.3) Aspartate Amino Transf (AST/SGOT) 11 U/L (15-37) L Alanine Aminotransferase (ALT/SGPT) < 6 U/L (12-78) L Alkaline Phosphatase 72 U/L (46-116) Total Protein 7.2 G/DL (6.4-8.2) Albumin 1.4 G/DL (3.4-5.0) L Height (Feet): 5 Height (Inches): 7.00 Weight (Pounds): 198 Luis Arechiga NP Feb 26, 2019 13:02
--- NOTE | 2019-02-26 13:29 | NUR ---
RD ASSESSMENT & RECOMMENDATIONS SEE CARE ACTIVITY FOR COMPLETE ASSESSMENT DAILY ESTIMATED NEEDS: Needs based on Wound, DM 59kg 25-35 kcals/kg 8046-0758 total kcals 1.25-2 g protein/kg 74-118 g total protein 25-30 mL/kg 2163-3158 total fluid mLs NUTRITION DIAGNOSIS: 1) Increased kcal and pro needs r/t wound healing as evidenced by h/o stage 4 sacral wound. 2) Swallowing difficulty r/t dysphagia as evidenced by pt is PEG dep. 3) Altered nutrition related lab values r/t clinical status, dehydration as evidenced by critically elev NA (169-> 150-> wnl ), elev BUN (100-> wnl), elev A1C 10.1. ENTERAL NUTRITION RECOMMENDATIONS: Glucerna 1.2 @ 60ml/hr x 24 hrs + Prosource 1pkt QD to provide 1440ml, 1728kcal, 86g + 11g prot, 1159ml free water - As medically able, rec to start GT feeds of Glucerna 1.2 @20ml/hr. - Advance as tolerated 15ml/hr q4-6 hrs to goal - Add Prosource 1pkt daily to better meet protein needs - Flush per , HOB over 30 degrees ADDITIONAL RECOMMENDATIONS: 1) Feed as medically able 2) WOUND CARE: add LORENZO BID + Vit C 250mg BID + ZN SO4 220mg daily x 10 days 3) Maintain calibrated bed scale wts for eval Adm wt: 147lbs Current wt: 198lbs Please RE-calibrate bedscale 4) Monitor hydration status closely-> now much improved
--- NOTE | 2019-02-26 14:54 | Nephrology Progress Note ---
Assessment/Plan Problem List: (1) Renal failure (ARF), acute on chronic (2) Hypotension (3) Anemia (4) Colostomy status (5) PEG (percutaneous endoscopic gastrostomy) status (6) Electrolyte imbalance Assessment Acute renal failure ? Underlying CKD Severe Dehydration Hyperglycemia- DM OOC A1c High Severe underlying Anemia Electrolyte imbalance UTI PEG Colostomy Severe HypoAlbuminemia Plan Plan; K and Phos and Mag supplement as needed D5W Hydrate Glucose check Albumin bolus as needed K mag Phos supplement as needed monitor lytes, and H&H Per orders Subjective ROS Limited/Unobtainable: No Constitutional: Reports: malaise Objective Objective Last 24 Hour Vital Signs Date Time Temp Pulse Resp B/P (MAP) Pulse Ox O2 Delivery O2 Flow Rate FiO2 02/26/19 12:00 80 02/26/19 12:00 98.3 70 20 139/69 (92) 100 02/26/19 09:00 Nasal Cannula 2.0 02/26/19 08:00 98.6 68 20 138/68 (91) 100 02/26/19 08:00 79 02/26/19 04:00 99.9 81 19 124/76 (92) 95 02/26/19 04:00 88 02/26/19 00:00 93 02/26/19 00:00 98.7 84 19 121/54 (76) 100 02/25/19 21:00 Nasal Cannula 2.0 02/25/19 20:00 81 02/25/19 20:00 98.4 80 18 119/52 (74) 100 02/25/19 19:00 98 Nasal Cannula 2.0 28 02/25/19 19:00 90 18 98 Nasal Cannula 2.0 28 02/25/19 16:00 80 02/25/19 16:00 97.6 77 18 126/65 (85) 100 Intake and Output 02/25/19 02/26/19 19:00 07:00 Intake Total 50 ml 150 ml Output Total 1200 ml Balance 50 ml -1050 ml Tube Feeding 50 ml 150 ml Output Urine Total 900 ml Stool Total 300 ml Laboratory Tests 02/26/19 11:00: Phosphorus Level 2.1L, Magnesium Level 1.7L, Total Bilirubin 0.4, Direct Bilirubin 0.1, Aspartate Amino Transf (AST/SGOT) 11L, Alanine Aminotransferase ( ALT/SGPT) < 6L, Alkaline Phosphatase 72, Total Protein 7.2, Albumin 1.4L Height (Feet): 5 Height (Inches): 7.00 Weight (Pounds): 198 General Appearance: no apparent distress, lethargic Respiratory/Chest: decreased breath sounds Abdomen: soft Servando Cifuentes MD Feb 26, 2019 14:54
--- NOTE | 2019-02-26 14:55 | Surgery Progress Note ---
Surgery Progress Note Subjective Additional Comments patient seen and examined at bedside. small sloth removed with non excisional debridement gauze at bedside with dressing changed otherwise well. Objective Last 24 Hour Vital Signs Date Time Temp Pulse Resp B/P (MAP) Pulse Ox O2 Delivery O2 Flow Rate FiO2 02/26/19 12:00 80 02/26/19 12:00 98.3 70 20 139/69 (92) 100 02/26/19 09:00 Nasal Cannula 2.0 02/26/19 08:00 98.6 68 20 138/68 (91) 100 02/26/19 08:00 79 02/26/19 04:00 99.9 81 19 124/76 (92) 95 02/26/19 04:00 88 02/26/19 00:00 93 02/26/19 00:00 98.7 84 19 121/54 (76) 100 02/25/19 21:00 Nasal Cannula 2.0 02/25/19 20:00 81 02/25/19 20:00 98.4 80 18 119/52 (74) 100 02/25/19 19:00 98 Nasal Cannula 2.0 28 02/25/19 19:00 90 18 98 Nasal Cannula 2.0 28 02/25/19 16:00 80 02/25/19 16:00 97.6 77 18 126/65 (85) 100 I&O Intake and Output 02/25/19 02/26/19 19:00 07:00 Intake Total 50 ml 150 ml Output Total 1200 ml Balance 50 ml -1050 ml Tube Feeding 50 ml 150 ml Output Urine Total 900 ml Stool Total 300 ml Dressing: saturated Wound: clean Cardiovascular: RSR Respiratory: clear Abdomen: soft, flat, non-tender, present bowel sounds Extremities: no cyanosis Laboratory Tests Test 02/26/19 11:00 Phosphorus Level 2.1 MG/DL (2.5-4.9) L Magnesium Level 1.7 MG/DL (1.8-2.4) L Total Bilirubin 0.4 MG/DL (0.2-1.0) Direct Bilirubin 0.1 MG/DL (0.0-0.3) Aspartate Amino Transf (AST/SGOT) 11 U/L (15-37) L Alanine Aminotransferase (ALT/SGPT) < 6 U/L (12-78) L Alkaline Phosphatase 72 U/L (46-116) Total Protein 7.2 G/DL (6.4-8.2) Albumin 1.4 G/DL (3.4-5.0) L Plan Problems: (1) Decubitus ulcer of sacral region, stage 4 Assessment & Plan: Pt presented on admission with full thickness stage 4 Sacral Pressure Injury with undermining. Bone is palpable. Base of has beefy red granulation with scattered small purple areas. No odor noted .Scant serous exudate noted . Edges pink and flat with some sloth. DTPI noted to lateral R foot. .Base of wound purple and fluctuant in center with surrounding maroon discoloration Non-blanchable erythema with fluctuance noted to posterior and medial R heel. L heel boggy but blanchable. Tx.Plan: Cleanse Sacral wound with Saline. Loosely pack with Hydrogel Impregnated Kerlix. Cover with ABD pads and secure with Paper Tape or Tegaderm Daily and prn. Apply Cavilon Skin Barrier to R and Heel and lateral R heel. Ciover with Optifoam drsg. Change every 7 days and PRN. Apply Cavilon Skin Barrier to L heel. Cover with Optifoam drsg. Change every 7 days and prn. APM/VIJI Mattress Overlay. Reposition at least every 2hours or as tolerated. Off-load heels with Pillow. (2) Sepsis Assessment & Plan: tachycardia, leukocytosis, anemia, abnormal labs, altered status - improving wound evaluate and tho not as optimal as prior unlikely etiology of infection IV abx as per ID cont with current care pland d/c planning trend labs will follow with recs thank you Mauro Morrow Feb 26, 2019 14:55
--- NOTE | 2019-02-26 15:09 | Hematology/Onc Progress Note ---
Assessment/Plan Assessment/Plan Assessment and Recs: # Anemia of chronic disease due to underlying chronic medical issues, multifactorial, ferritin 366, tibc 144 --> Anemia workup has been reviewed --> No evidence of hemolysis is noted, peripheral smear has been reviewed. --> Hgb goal >7. Transfuse prn. --> Iron iv is okay x 5 days total --> Medications have been reviewed --> low threshold for gi evaluation in case has occult + --> Hgb trend:>8.4-->8-->7.3-->7.7-->8.7-->9.5-->10.3 --> tolerated 1 unit on 02/22 # Recanalized dvt of the right lower extremity --> given it has healed/recanalized, is not acute okay for just heparin sq prophylactic dosing --> continue lovenox for dvt ppx # Leukocytosis/elevated white blood cell count, is due to underlying sepsis urine infection+ --> Currently resolved --> ID is following, appreciate recs --> have reviewed peripheral smear and bandemia/neutrophilia noted --> continue antibiotics per ID cefepime/vanc --> monitor for resolution --> trend 17.4-->11.2-->8.3 -->12-->8.6-->8.2 # Respiratory failure with hypoxia --> Currently on NC 12/28 --> pulm eval --> prior intubation 12/2018 # Sacral decubitus ulcer, stage IV --> per surg, wound care # HCAP (healthcare-associated pneumonia) --> sp abx # ARF (acute renal failure) --> per renal # Hyperglycemia due to type 2 diabetes mellitus --> per endo # Acute metabolic encephalopathy --> better # Severe dehydration # DVT pxx with lovenox (since 02/25) The timing of this note does not necessarily reflect the time of the patient was seen. GREATLY APPRECIATE CONSULTATION. Subjective HEENT: Denies: no symptoms, eye pain, blurred vision, tearing, double vision, ear pain, ear discharge, nose pain, nose congestion, throat pain, throat swelling, mouth pain, mouth swelling, other Cardiovascular: Denies: no symptoms, chest pain, edema, irregular heart rate, lightheadedness, palpitations, syncope, other Respiratory: Denies: no symptoms, cough, shortness of breath, SOB with excertion, SOB at rest, sputum, wheezing, other Gastrointestinal/Abdominal: Denies: no symptoms, abdomen distended, abdominal pain, black stools, tarry stools, blood in stool, constipated, diarrhea, difficulty swallowing, nausea, poor appetite, poor fluid intake, rectal bleeding , vomiting, other Genitourinary: Denies: no symptoms, burning, discharge, frequency, flank pain, hematuria, incontinence, pain, urgency, other Allergies: Coded Allergies: ALLOPURINOL (Verified Allergy, Unknown, 12/20/18) Subjective 02/19: icu, labs reviewed, bs is better today, on abx 02/20: on cefepime and have discontinued vanc, no bleeding noted, hgb reviewed 02/21: on abx, vs stable, denies pain, no distress 02/22: no events, potential dc to snf, pending clearance, gtube dependent 02/23: on nc, femoral line removed, on abx 02/25: remains on tube feeds, seen by cards, h/h better 02/26: remains altered, on tube feeds, mild debridement, no events Objective Objective Current Medications Medications (Trade) Dose Ordered Sig/Nora Route PRN Reason Start Time Stop Time Status Last Admin Dose Admin Acetaminophen (Tylenol) 650 mg Q4H PRN ORAL Mild Pain/Temp > 100.5 02/26/19 11:45 03/26/19 22:14 Aspirin (Ecotrin) 81 mg DAILY ORAL 02/24/19 09:00 03/21/19 12:29 02/26/19 08:16 Atorvastatin Calcium (Lipitor) 40 mg BEDTIME ORAL 02/23/19 21:00 03/21/19 20:59 02/25/19 20:48 Cefepime HCl 1 gm/ Sodium Chloride 55 ml @ 110 mls/hr DAILY IVPB 02/24/19 09:00 03/04/19 08:59 02/26/19 08:18 Dextrose 1,000 ml @ 50 mls/hr Q20H IV 02/24/19 16:15 03/23/19 10:59 02/25/19 23:58 Dextrose (Dextrose 50%) 25 ml Q30M PRN IV Hypoglycemia 02/23/19 16:30 03/21/19 08:59 Dextrose (Dextrose 50%) 50 ml Q30M PRN IV Hypoglycemia 02/23/19 16:30 03/21/19 08:59 Enoxaparin Sodium (Lovenox) 40 mg DAILY SUBQ 02/26/19 09:00 03/28/19 08:59 02/26/19 08:20 Insulin Aspart (NovoLOG) EVERY 6 HOURS SUBQ 02/23/19 18:00 03/21/19 11:29 02/26/19 12:55 Insulin Detemir (Levemir) 8 units BID SUBQ 02/25/19 09:00 03/21/19 08:59 02/26/19 08:24 Lansoprazole (Prevacid) 30 mg BID GT 02/23/19 18:00 03/25/19 17:59 02/26/19 08:16 Magnesium Sulfate 100 ml @ 100 mls/hr Q1H IVPB 02/26/19 13:30 02/26/19 15:29 02/26/19 14:03 Olanzapine (ZyPREXA) 2.5 mg BEDTIME ORAL 02/23/19 21:00 03/25/19 20:59 02/25/19 20:48 Last 24 Hour Vital Signs Date Time Temp Pulse Resp B/P (MAP) Pulse Ox O2 Delivery O2 Flow Rate FiO2 02/26/19 12:00 80 02/26/19 12:00 98.3 70 20 139/69 (92) 100 02/26/19 09:00 Nasal Cannula 2.0 02/26/19 08:00 98.6 68 20 138/68 (91) 100 02/26/19 08:00 79 02/26/19 04:00 99.9 81 19 124/76 (92) 95 02/26/19 04:00 88 02/26/19 00:00 93 02/26/19 00:00 98.7 84 19 121/54 (76) 100 02/25/19 21:00 Nasal Cannula 2.0 02/25/19 20:00 81 02/25/19 20:00 98.4 80 18 119/52 (74) 100 02/25/19 19:00 98 Nasal Cannula 2.0 28 02/25/19 19:00 90 18 98 Nasal Cannula 2.0 28 02/25/19 16:00 80 02/25/19 16:00 97.6 77 18 126/65 (85) 100 02/25/19 12:00 85 02/25/19 12:00 97.4 78 18 112/60 (77) 100 02/25/19 09:00 Nasal Cannula 2.0 02/25/19 08:57 100.0 02/25/19 08:00 92 02/25/19 08:00 100.0 93 20 113/71 (85) 100 02/25/19 04:00 93 02/25/19 03:57 98.4 88 20 118/55 (76) 97 02/25/19 00:00 98.6 81 18 109/53 (71) 97 02/25/19 00:00 88 02/24/19 21:00 Nasal Cannula 2.0 02/24/19 20:00 74 02/24/19 20:00 97.9 78 20 151/70 (97) 99 02/24/19 16:00 97.6 82 20 126/98 (107) 100 02/24/19 16:00 75 Intake and Output 02/25/19 02/26/19 19:00 07:00 Intake Total 50 ml 150 ml Output Total 1200 ml Balance 50 ml -1050 ml Tube Feeding 50 ml 150 ml Output Urine Total 900 ml Stool Total 300 ml Labs Test 02/25/19 05:10 02/26/19 11:00 White Blood Count 7.8 K/UL (4.8-10.8) Red Blood Count 3.73 M/UL (4.20-5.40) Hemoglobin 10.3 G/DL (12.0-16.0) Hematocrit 32.9 % (37.0-47.0) Mean Corpuscular Volume 88 FL (80-99) Mean Corpuscular Hemoglobin 27.5 PG (27.0-31.0) Mean Corpuscular Hemoglobin Concent 31.2 G/DL (32.0-36.0) Red Cell Distribution Width 16.3 % (11.6-14.8) Platelet Count 156 K/UL (150-450) Mean Platelet Volume 9.6 FL (6.5-10.1) Neutrophils (%) (Auto) 61.7 % (45.0-75.0) Lymphocytes (%) (Auto) 32.4 % (20.0-45.0) Monocytes (%) (Auto) 4.1 % (1.0-10.0) Eosinophils (%) (Auto) 1.5 % (0.0-3.0) Basophils (%) (Auto) 0.4 % (0.0-2.0) Sodium Level 141 MMOL/L (136-145) Potassium Level 4.4 MMOL/L (3.5-5.1) Chloride Level 111 MMOL/L (98-107) Carbon Dioxide Level 23 MMOL/L (21-32) Anion Gap 7 mmol/L (5-15) Blood Urea Nitrogen 20 mg/dL (7-18) Creatinine 1.1 MG/DL (0.55-1.30) Estimat Glomerular Filtration Rate mL/min (>60) Glucose Level 183 MG/DL (74-106) Calcium Level 8.6 MG/DL (8.5-10.1) Phosphorus Level 2.1 MG/DL (2.5-4.9) Magnesium Level 1.7 MG/DL (1.8-2.4) Total Bilirubin 0.4 MG/DL (0.2-1.0) Direct Bilirubin 0.1 MG/DL (0.0-0.3) Aspartate Amino Transf (AST/SGOT) 11 U/L (15-37) Alanine Aminotransferase (ALT/SGPT) < 6 U/L (12-78) Alkaline Phosphatase 72 U/L (46-116) Total Protein 7.2 G/DL (6.4-8.2) Albumin 1.4 G/DL (3.4-5.0) Height (Feet): 5 Height (Inches): 7.00 Weight (Pounds): 198 Objective General Appearance: severe distress, lethargic, Chronically Ill Head: normocephalic, atraumatic Eyes: bilateral eye PERRL, bilateral eye EOMI ENT: dry mucus membranes Neck: full range of motion, supple, no meningismus Respiratory: chest non-tender, respiratory distress, rhonchi. CPAP+ Cardiovascular: regular rate, rhythm, no murmur, tachycardia Gastrointestinal: normal bowel sounds, non tender- Reducible abdominal wall hernia. COLOSTOMY+, GT++ Rectal: other - large sacral Stage 4 ulcer Tobin Stover MD Feb 26, 2019 15:09
[2019-02-26 16:00] VITALS: BP 130/68
--- NOTE | 2019-02-26 19:24 | NUR ---
HAND-OFF: Report given to HELEN Krause.
--- NOTE | 2019-02-26 19:57 | Cardiology Progress Note ---
Assessment/Plan Assessment/Plan 1. Sinus tachycardia, resolved, continue hydration. 2. Hypoxemic hypercarbic respiratory failure, pulmonary f/u. 3. Severe hypernatremia secondary volume contraction, resolved. 4. MANUEL, resolved, creat at 1.1. 5. Anemia Subjective Subjective Sinus rhythm at rate of 72. Objective Last 24 Hour Vital Signs Date Time Temp Pulse Resp B/P (MAP) Pulse Ox O2 Delivery O2 Flow Rate FiO2 02/26/19 16:00 97.7 72 20 130/68 (88) 100 02/26/19 16:00 81 02/26/19 12:00 80 02/26/19 12:00 98.3 70 20 139/69 (92) 100 02/26/19 09:00 Nasal Cannula 2.0 02/26/19 08:00 98.6 68 20 138/68 (91) 100 02/26/19 08:00 79 02/26/19 04:00 99.9 81 19 124/76 (92) 95 02/26/19 04:00 88 02/26/19 00:00 93 02/26/19 00:00 98.7 84 19 121/54 (76) 100 02/25/19 21:00 Nasal Cannula 2.0 02/25/19 20:00 81 02/25/19 20:00 98.4 80 18 119/52 (74) 100 Intake and Output 02/25/19 02/26/19 18:59 06:59 Intake Total 20 ml 180 ml Output Total 1200 ml Balance 20 ml -1020 ml Tube Feeding 20 ml 180 ml Output Urine Total 900 ml Stool Total 300 ml Laboratory Tests Test 02/26/19 11:00 Phosphorus Level 2.1 MG/DL (2.5-4.9) L Magnesium Level 1.7 MG/DL (1.8-2.4) L Total Bilirubin 0.4 MG/DL (0.2-1.0) Direct Bilirubin 0.1 MG/DL (0.0-0.3) Aspartate Amino Transf (AST/SGOT) 11 U/L (15-37) L Alanine Aminotransferase (ALT/SGPT) < 6 U/L (12-78) L Alkaline Phosphatase 72 U/L (46-116) Total Protein 7.2 G/DL (6.4-8.2) Albumin 1.4 G/DL (3.4-5.0) L Objective HEENT: normocephalic, atraumatic, bilateral eye PERRL, + dry mucus membranes Neck: - JVD, no carotid bruit Respiratory: crackles bilaterally Cardiovascular: Normal S1S2, no murmurs, gallops or rubs. Gastrointestinal: non tender, soft, non-distended, colostomy bag in the left mid abdomen Musculoskeletal: No edema, clubbing or cyanosis. Logan Arias MD Feb 26, 2019 19:57
[2019-02-26 20:00] VITALS: BP 135/62
--- NOTE | 2019-02-26 21:09 | Pulmonolgy Critical Care Note ---
Critical Care - Asmt/Plan Assessment/Plan: Pulmonary CCM Progress Note HPI Patient is an 83 year old woman [place] [facility], history of Diabetes, admitted with alteration in mental status, very high glucose readings - now resolved Noted to have a UTI - gas bubbles at the periphery of the dome of the bladder are concerning for intramural gas consistent with emphysematous cystitis, on antiibiotics per ID No reports of vomiting or diarrhea Hypernatremia improving Stable overnight Past Medical History: Diabetes, Hypertension, Chronic Obstructive Pulmonary Disease, Dyphagia, s/p Gastrostomy Tube, Anemia, Previous CVA, previous colostomy All Other Systems: limited Physical Exam Vital Signs Noted Date Time Temp Pulse Resp B/P (MAP) Pulse Ox O2 Delivery O2 Flow Rate FiO2 02/18/19 12:08 98.1 101 24 101/82 (88) 98 Room Air General Appearance: Chronically ill appearing, altered mental status, no response to verbal command,moans with physical stimuli Head: normocephalic, atraumatic Eyes: bilateral eye PERRL ENT: no angioedema, dry mucus membranes Neck: supple, no LN Respiratory: no respiratory distress, crackles - bilaterally Cardiovascular: tachycardia, HS1, HS2, normal, RRR Gastrointestinal: non tender, soft, other - Colostomy bag noted Musculoskeletal: oupper extremity localizes towards physical stimuli, Neurologic: Significantly decreased GCS patient makes moaning sound to physical stimuli is somewhat purposeful with her upper extremity, otherwise nonverbal does not follow commands Skin: no rash, no edema Impression Severe Hyperglycemia Severe Dehydration Urinary Tract Infection Sepsis Previous Diabetes Hypertension Chronic Obstructive Pulmonary Disease Dysphagia, s/p Gastrostomy Tube Anemia Previous CVA Plan - IV Antibiotics per ID - Blood/Urine cultures - Insulin SS - IV fluids PRN - Monitor labs - Pressors PRN - HHN - O2 PRN - 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 Gas within the bladder lumen is presumably related to Agarwal catheter. However, gas bubbles at the periphery of the dome of the bladder are concerning for intramural gas consistent with emphysematous cystitis. Positive for tiny right distal ureteral calculus resulting in moderate right hydronephrosis and hydroureter Bilateral intrarenal calculi Extensive retrosacral/retrococcygeal decubitus changes. Correlate with clinical findings. 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 CXR: Nil acute Critical Care - Objective Last 24 Hour Vital Signs Date Time Temp Pulse Resp B/P (MAP) Pulse Ox O2 Delivery O2 Flow Rate FiO2 02/26/19 16:00 97.7 72 20 130/68 (88) 100 02/26/19 16:00 81 02/26/19 12:00 80 02/26/19 12:00 98.3 70 20 139/69 (92) 100 02/26/19 09:00 Nasal Cannula 2.0 02/26/19 08:00 98.6 68 20 138/68 (91) 100 02/26/19 08:00 79 02/26/19 04:00 99.9 81 19 124/76 (92) 95 02/26/19 04:00 88 02/26/19 00:00 93 02/26/19 00:00 98.7 84 19 121/54 (76) 100 Accucheck: 172 Critical Care - Subjective ROS Limited/Unobtainable: No FI02: 28 Sputum Amount: None Tube Feeding Amount: 30 I&O: Intake and Output 02/25/19 02/26/19 18:59 06:59 Intake Total 20 ml 180 ml Output Total 1200 ml Balance 20 ml -1020 ml Tube Feeding 20 ml 180 ml Output Urine Total 900 ml Stool Total 300 ml Minh Dunbar MD Feb 26, 2019 21:09
[2019-02-26] MEDS: OLANZapine 2.5mg tab ORAL SCH (22:09)
[2019-02-26] MEDS: Atorvastatin 20mg tab ORAL SCH (22:10)
--- NOTE | 2019-02-26 22:15 | General Progress Note ---
Assessment/Plan Problem List: (1) Renal failure (ARF), acute on chronic ICD Codes: N17.9 - Acute kidney failure, unspecified; N18.9 - Chronic kidney disease, unspecified SNOMED: 507233565 (2) Altered level of consciousness ICD Codes: R40.4 - Transient alteration of awareness SNOMED: 7074041 (3) Hypotension ICD Codes: I95.9 - Hypotension, unspecified SNOMED: 25570327 (4) Anemia ICD Codes: D64.9 - Anemia, unspecified SNOMED: 006819979 (5) Sepsis ICD Codes: A41.9 - Sepsis, unspecified organism SNOMED: 02493906 (6) Electrolyte imbalance ICD Codes: E87.8 - Other disorders of electrolyte and fluid balance, not elsewhere classified SNOMED: 563885048 Status: stable, unchanged Assessment/Plan: abx per id confused low mg otherwise labs look good no bleeding Subjective ROS Limited/Unobtainable: Yes Allergies: Coded Allergies: ALLOPURINOL (Verified Allergy, Unknown, 12/20/18) Objective Last 24 Hour Vital Signs Date Time Temp Pulse Resp B/P (MAP) Pulse Ox O2 Delivery O2 Flow Rate FiO2 02/26/19 16:00 97.7 72 20 130/68 (88) 100 02/26/19 16:00 81 02/26/19 12:00 80 02/26/19 12:00 98.3 70 20 139/69 (92) 100 02/26/19 09:00 Nasal Cannula 2.0 02/26/19 08:00 98.6 68 20 138/68 (91) 100 02/26/19 08:00 79 02/26/19 04:00 99.9 81 19 124/76 (92) 95 02/26/19 04:00 88 02/26/19 00:00 93 02/26/19 00:00 98.7 84 19 121/54 (76) 100 Intake and Output 02/25/19 02/26/19 18:59 06:59 Intake Total 20 ml 180 ml Output Total 1200 ml Balance 20 ml -1020 ml Tube Feeding 20 ml 180 ml Output Urine Total 900 ml Stool Total 300 ml Laboratory Tests 02/26/19 11:00: Phosphorus Level 2.1L, Magnesium Level 1.7L, Total Bilirubin 0.4, Direct Bilirubin 0.1, Aspartate Amino Transf (AST/SGOT) 11L, Alanine Aminotransferase ( ALT/SGPT) < 6L, Alkaline Phosphatase 72, Total Protein 7.2, Albumin 1.4L Height (Feet): 5 Height (Inches): 7.00 Weight (Pounds): 198 General Appearance: confused Respiratory/Chest: normal breath sounds Abdomen: soft Danial Walden MD Feb 26, 2019 22:15
[2019-02-27] VITALS: BP 140/62
--- NOTE | 2019-02-27 02:33 | NUR ---
NURSE NOTES: Patient in bed asleep with no distress noted. Will continue to monitor
[2019-02-27 04:00] VITALS: BP 134/79
[2019-02-27] MEDS: NovoLOG Insulin Flexpen SUBQ SCH ×3 (06:22→12:00)
--- NOTE | 2019-02-27 06:39 | General Progress Note ---
Assessment/Plan Problem List: (1) Diabetes mellitus out of control ICD Codes: E11.65 - Type 2 diabetes mellitus with hyperglycemia SNOMED: 99731400, 681059265 (2) Decubitus ulcer of sacral region, stage 4 ICD Codes: L89.154 - Pressure ulcer of sacral region, stage 4 SNOMED: 578384566, 694196001 (3) Sepsis ICD Codes: A41.9 - Sepsis, unspecified organism SNOMED: 74812467 (4) Electrolyte imbalance ICD Codes: E87.8 - Other disorders of electrolyte and fluid balance, not elsewhere classified SNOMED: 095411414 (5) Altered level of consciousness ICD Codes: R40.4 - Transient alteration of awareness SNOMED: 0362361 (6) Renal failure (ARF), acute on chronic ICD Codes: N17.9 - Acute kidney failure, unspecified; N18.9 - Chronic kidney disease, unspecified SNOMED: 878496156 (7) PEG (percutaneous endoscopic gastrostomy) status ICD Codes: Z93.1 - Gastrostomy status SNOMED: 084056101, 385874434 (8) Colostomy status ICD Codes: Z93.3 - Colostomy status SNOMED: 59814798, 939410116, 888642978 Status: stable, unchanged Assessment/Plan: continue Levemir 8 units bid continue Novolog sliding scale every 6 hours Subjective ROS Limited/Unobtainable: Yes Allergies: Coded Allergies: ALLOPURINOL (Verified Allergy, Unknown, 12/20/18) Subjective events noted glucose values are stable Item Value Date Time Bedside Blood Glucose 151 mg/dl H 02/27/19 0622 Bedside Blood Glucose 109 mg/dl 02/27/19 0000 Bedside Blood Glucose 172 mg/dl H 02/26/19 1800 Bedside Blood Glucose 141 mg/dl H 02/26/19 1255 Bedside Blood Glucose 141 mg/dl H 02/26/19 0824 Bedside Blood Glucose 135 mg/dl H 02/26/19 0600 Bedside Blood Glucose 158 mg/dl H 02/26/19 0000 Objective Last 24 Hour Vital Signs Date Time Temp Pulse Resp B/P (MAP) Pulse Ox O2 Delivery O2 Flow Rate FiO2 02/27/19 04:00 98.3 70 18 134/79 (97) 97 02/27/19 04:00 71 02/27/19 00:00 77 02/27/19 00:00 98.3 72 18 140/62 (88) 99 02/26/19 21:00 Nasal Cannula 2.0 02/26/19 20:00 97.4 76 18 135/62 (86) 100 02/26/19 20:00 75 02/26/19 19:00 98 Nasal Cannula 2.0 28 02/26/19 16:00 97.7 72 20 130/68 (88) 100 02/26/19 16:00 81 02/26/19 12:00 80 02/26/19 12:00 98.3 70 20 139/69 (92) 100 02/26/19 09:00 Nasal Cannula 2.0 02/26/19 08:00 98.6 68 20 138/68 (91) 100 02/26/19 08:00 79 Intake and Output 02/26/19 02/27/19 19:00 07:00 Output Total 400 ml 920 ml Balance -400 ml -920 ml Output Urine Total 400 ml 920 ml Laboratory Tests 02/26/19 11:00: Phosphorus Level 2.1L, Magnesium Level 1.7L, Total Bilirubin 0.4, Direct Bilirubin 0.1, Aspartate Amino Transf (AST/SGOT) 11L, Alanine Aminotransferase ( ALT/SGPT) < 6L, Alkaline Phosphatase 72, Total Protein 7.2, Albumin 1.4L Height (Feet): 5 Height (Inches): 7.00 Weight (Pounds): 198 General Appearance: no apparent distress Cardiovascular: normal rate Respiratory/Chest: decreased breath sounds Abdomen: normal bowel sounds Pelvis: normal external exam Objective Current Medications Medications (Trade) Dose Ordered Sig/Nora Route PRN Reason Start Time Stop Time Status Last Admin Dose Admin Acetaminophen (Tylenol) 650 mg Q4H PRN ORAL Mild Pain/Temp > 100.5 02/26/19 11:45 03/26/19 22:14 02/27/19 01:53 Aspirin (Ecotrin) 81 mg DAILY ORAL 02/24/19 09:00 03/21/19 12:29 02/26/19 08:16 Atorvastatin Calcium (Lipitor) 40 mg BEDTIME ORAL 02/23/19 21:00 03/21/19 20:59 02/26/19 22:10 Cefepime HCl 1 gm/ Sodium Chloride 55 ml @ 110 mls/hr DAILY IVPB 02/24/19 09:00 03/04/19 08:59 02/26/19 08:18 Dextrose 1,000 ml @ 50 mls/hr Q20H IV 02/24/19 16:15 03/23/19 10:59 02/26/19 22:38 Dextrose (Dextrose 50%) 25 ml Q30M PRN IV Hypoglycemia 02/23/19 16:30 03/21/19 08:59 Dextrose (Dextrose 50%) 50 ml Q30M PRN IV Hypoglycemia 02/23/19 16:30 03/21/19 08:59 Enoxaparin Sodium (Lovenox) 40 mg DAILY SUBQ 02/26/19 09:00 03/28/19 08:59 02/26/19 08:20 Insulin Aspart (NovoLOG) EVERY 6 HOURS SUBQ 02/23/19 18:00 03/21/19 11:29 02/27/19 06:22 Insulin Detemir (Levemir) 8 units BID SUBQ 02/25/19 09:00 03/21/19 08:59 02/26/19 17:26 Lansoprazole (Prevacid) 30 mg BID GT 02/23/19 18:00 03/25/19 17:59 02/26/19 17:21 Olanzapine (ZyPREXA) 2.5 mg BEDTIME ORAL 02/23/19 21:00 03/25/19 20:59 02/26/19 22:09 Pablo Day MD Feb 27, 2019 06:39
--- NOTE | 2019-02-27 07:19 | NUR ---
HAND-OFF: Report given to Del Leal RN. Patient in stable condition, endorsed plan of care.
--- NOTE | 2019-02-27 07:21 | NUR ---
NURSE NOTES: Received report from HELEN Krause. Patient in bed resting, no active s/s cardiac, respiratory distress noticed at this time. Patient on 2L oxygen via NC. Agarwal Catheter draining well to gravity, G-tube on Glucerna 1.2 at 30ml/h, tolerating well, no residual at this time. Patient on P200 mattress. IV on right FA 22G, 20G, asymptomatic, patent, intact, IV fluid running at prescribed rate. Bed in lowest position, side rails upx2, call light within reach. Will continue to monitor.
[2019-02-27 07:26] LABS: BASOPHILS % (AUTO) 0.6 % (0.0-2.0); EOSINOPHILS % (AUTO) 1.8 % (0.0-3.0); HEMATOCRIT 28.3 % (37.0-47.0); HEMOGLOBIN 8.8 G/DL (12.0-16.0); LYMPHOCYTES % (AUTO) 42.5 % (20.0-45.0); MEAN CORPUSCULAR VOLUME 88 FL (80-99); MONOCYTES % (AUTO) 4.4 % (1.0-10.0); NEUTROPHILS % (AUTO) 50.8 % (45.0-75.0); PLATELET COUNT 216 K/UL (150-450); RED BLOOD COUNT 3.21 M/UL (4.20-5.40); RED CELL DISTRIBUTION WIDTH 16.5 % (11.6-14.8); WHITE BLOOD COUNT 8.9 K/UL (4.8-10.8)
[2019-02-27 08:00] VITALS: BP 131/60
[2019-02-27 08:04] LABS: ANION GAP 7 mmol/L (5-15); BLOOD UREA NITROGEN 17 mg/dL (7-18); CALCIUM 8.6 MG/DL (8.5-10.1); CARBON DIOXIDE 23 MMOL/L (21-32); CHLORIDE 109 MMOL/L (98-107); PHOSPHORUS 2.4 MG/DL (2.5-4.9); SODIUM 139 MMOL/L (136-145)
--- NOTE | 2019-02-27 09:05 | General Progress Note ---
Assessment/Plan Assessment/Plan: (1) H/o CVA (2) Sacral decubitus ulcer Patient to be continued on Tylenol D/w Dr. Villa and he concurred. Subjective Date patient seen: Feb 27, 2019 Time patient seen: 08:30 - am ROS Limited/Unobtainable: Yes Allergies: Coded Allergies: ALLOPURINOL (Verified Allergy, Unknown, 12/20/18) Subjective In bed Tylenol was increased to 650mg tabs. Now showing no signs of pain or distress. D/w nurse at bedside. Objective Last 24 Hour Vital Signs Date Time Temp Pulse Resp B/P (MAP) Pulse Ox O2 Delivery O2 Flow Rate FiO2 02/27/19 04:00 98.3 70 18 134/79 (97) 97 02/27/19 04:00 71 02/27/19 00:00 77 02/27/19 00:00 98.3 72 18 140/62 (88) 99 02/26/19 21:00 Nasal Cannula 2.0 02/26/19 20:00 97.4 76 18 135/62 (86) 100 02/26/19 20:00 75 02/26/19 19:00 98 Nasal Cannula 2.0 28 02/26/19 16:00 97.7 72 20 130/68 (88) 100 02/26/19 16:00 81 02/26/19 12:00 80 02/26/19 12:00 98.3 70 20 139/69 (92) 100 Intake and Output 02/26/19 02/27/19 19:00 07:00 Intake Total 390 ml Output Total 400 ml 1270 ml Balance -400 ml -880 ml Tube Feeding 30 ml Other 360 ml Output Urine Total 400 ml 920 ml Stool Total 350 ml Laboratory Tests 02/26/19 11:00: Phosphorus Level 2.1L, Magnesium Level 1.7L, Total Bilirubin 0.4, Direct Bilirubin 0.1, Aspartate Amino Transf (AST/SGOT) 11L, Alanine Aminotransferase ( ALT/SGPT) < 6L, Alkaline Phosphatase 72, Total Protein 7.2, Albumin 1.4L 02/27/19 06:20: Phosphorus Level 2.4L, Magnesium Level 2.2, White Blood Count 8.9, Red Blood Count 3.21L, Hemoglobin 8.8L, Hematocrit 28.3L, Mean Corpuscular Volume 88, Mean Corpuscular Hemoglobin 27.4, Mean Corpuscular Hemoglobin Concent 31.0L, Red Cell Distribution Width 16.5H, Platelet Count 216, Mean Platelet Volume 7.9 , Neutrophils (%) (Auto) 50.8, Lymphocytes (%) (Auto) 42.5, Monocytes (%) (Auto ) 4.4, Eosinophils (%) (Auto) 1.8, Basophils (%) (Auto) 0.6, Sodium Level 139, Potassium Level 4.0, Chloride Level 109H, Carbon Dioxide Level 23, Anion Gap 7, Blood Urea Nitrogen 17, Creatinine 1.0, Estimat Glomerular Filtration Rate , Glucose Level 145H, Calcium Level 8.6 Height (Feet): 5 Height (Inches): 7.00 Weight (Pounds): 198 General Appearance: no apparent distress EENT: PERRL/EOMI Neck: non-tender, normal alignment Cardiovascular: normal rate, regular rhythm Respiratory/Chest: decreased breath sounds Abdomen: non tender, soft Edema: moderate edema Neurologic: alert, responsive Skin: normal pigmentation Landon Lyon Feb 27, 2019 09:05
[2019-02-27] MEDS: Aspirin EC 81mg tab ORAL SCH (09:11)
[2019-02-27] MEDS: Cefepime HCl 1 GM in NS 55 ML IVPB SCH ×2 (09:11→09:38)
[2019-02-27] MEDS: Enoxaparin 40mg Inj SUBQ SCH (09:14)
[2019-02-27] MEDS: Levemir Flexpen SUBQ SCH (09:15)
--- NOTE | 2019-02-27 09:16 | NUR ---
NURSE NOTES: Per Dr. Walden, discharge patient back to [facility], continue home medication, continue Agarwal Catheter, if O2 sat <90% on room air, 2L oxygen. Order noted, entered, carried out.
--- NOTE | 2019-02-27 09:47 | NUR ---
DISCHARGE DISPOSITION: PLEASE READ PATIENT TO BE DISCHARGED TO [facility] [address] [facility] ROOM [facility]1 T: [phone]>>> CALL FOR REPORT [facility] ETA 1130 ALF SON RAJENDRA IS AWARE AND AGREEABLE TO DCP
--- NOTE | 2019-02-27 10:25 | GI Progress Note ---
Assessment/Plan Problems: (1) Electrolyte imbalance ICD Codes: E87.8 - Other disorders of electrolyte and fluid balance, not elsewhere classified SNOMED: 487330997 (2) Sepsis ICD Codes: A41.9 - Sepsis, unspecified organism SNOMED: 16503730 (3) Decubitus ulcer of sacral region, stage 4 ICD Codes: L89.154 - Pressure ulcer of sacral region, stage 4 SNOMED: 333284941, 321716538 (4) Altered level of consciousness ICD Codes: R40.4 - Transient alteration of awareness SNOMED: 2319120 (5) Renal failure (ARF), acute on chronic ICD Codes: N17.9 - Acute kidney failure, unspecified; N18.9 - Chronic kidney disease, unspecified SNOMED: 051066982 (6) Hypotension ICD Codes: I95.9 - Hypotension, unspecified SNOMED: 55793912 (7) Anemia ICD Codes: D64.9 - Anemia, unspecified SNOMED: 155390258 (8) Colostomy status ICD Codes: Z93.3 - Colostomy status SNOMED: 92694892, 915913723, 636210656 (9) PEG (percutaneous endoscopic gastrostomy) status ICD Codes: Z93.1 - Gastrostomy status SNOMED: 670986036, 311965051 Status: stable Status Narrative Discussed with Dr. Vora. Assessment/Plan AMS G Tube dependent colostomy dependent hypernatremia no plans for GI procedures at this time, only if emergent cont GTF to goal electrolyte correction OB stool r/o GI bleed monitor H&H, prn transfusions bowel regimen ppi hold iron supplementation given elevated ferritin levels GT/colostomy site care fu labs dc planning per primary The patient was seen and examined at bedside and all new and available data was reviewed in the patients chart. I agree with the above findings, impression and plan. (Patient seen earlier today. Signature stamp does not reflect patient encounter time.). - Horacio Vora MD Subjective Subjective limited Objective Last 24 Hour Vital Signs Date Time Temp Pulse Resp B/P (MAP) Pulse Ox O2 Delivery O2 Flow Rate FiO2 02/27/19 09:00 Nasal Cannula 2.0 02/27/19 08:00 69 02/27/19 08:00 97.7 70 20 131/60 (83) 100 02/27/19 04:00 98.3 70 18 134/79 (97) 97 02/27/19 04:00 71 02/27/19 00:00 77 02/27/19 00:00 98.3 72 18 140/62 (88) 99 02/26/19 21:00 Nasal Cannula 2.0 02/26/19 20:00 97.4 76 18 135/62 (86) 100 02/26/19 20:00 75 02/26/19 19:00 98 Nasal Cannula 2.0 28 02/26/19 16:00 97.7 72 20 130/68 (88) 100 02/26/19 16:00 81 02/26/19 12:00 80 02/26/19 12:00 98.3 70 20 139/69 (92) 100 Intake and Output 02/26/19 02/27/19 19:00 07:00 Intake Total 390 ml Output Total 400 ml 1270 ml Balance -400 ml -880 ml Tube Feeding 30 ml Other 360 ml Output Urine Total 400 ml 920 ml Stool Total 350 ml Laboratory Tests Test 02/26/19 11:00 02/27/19 06:20 Phosphorus Level 2.1 MG/DL (2.5-4.9) L 2.4 MG/DL (2.5-4.9) L Magnesium Level 1.7 MG/DL (1.8-2.4) L 2.2 MG/DL (1.8-2.4) Total Bilirubin 0.4 MG/DL (0.2-1.0) Direct Bilirubin 0.1 MG/DL (0.0-0.3) Aspartate Amino Transf (AST/SGOT) 11 U/L (15-37) L Alanine Aminotransferase (ALT/SGPT) < 6 U/L (12-78) L Alkaline Phosphatase 72 U/L (46-116) Total Protein 7.2 G/DL (6.4-8.2) Albumin 1.4 G/DL (3.4-5.0) L White Blood Count 8.9 K/UL (4.8-10.8) Red Blood Count 3.21 M/UL (4.20-5.40) L Hemoglobin 8.8 G/DL (12.0-16.0) L Hematocrit 28.3 % (37.0-47.0) L Mean Corpuscular Volume 88 FL (80-99) Mean Corpuscular Hemoglobin 27.4 PG (27.0-31.0) Mean Corpuscular Hemoglobin Concent 31.0 G/DL (32.0-36.0) L Red Cell Distribution Width 16.5 % (11.6-14.8) H Platelet Count 216 K/UL (150-450) Mean Platelet Volume 7.9 FL (6.5-10.1) Neutrophils (%) (Auto) 50.8 % (45.0-75.0) Lymphocytes (%) (Auto) 42.5 % (20.0-45.0) Monocytes (%) (Auto) 4.4 % (1.0-10.0) Eosinophils (%) (Auto) 1.8 % (0.0-3.0) Basophils (%) (Auto) 0.6 % (0.0-2.0) Sodium Level 139 MMOL/L (136-145) Potassium Level 4.0 MMOL/L (3.5-5.1) Chloride Level 109 MMOL/L (98-107) H Carbon Dioxide Level 23 MMOL/L (21-32) Anion Gap 7 mmol/L (5-15) Blood Urea Nitrogen 17 mg/dL (7-18) Creatinine 1.0 MG/DL (0.55-1.30) Estimat Glomerular Filtration Rate mL/min (>60) Glucose Level 145 MG/DL (74-106) H Calcium Level 8.6 MG/DL (8.5-10.1) Height (Feet): 5 Height (Inches): 7.00 Weight (Pounds): 198 General Appearance: WD/WN, no apparent distress, alert Cardiovascular: normal rate Respiratory/Chest: normal breath sounds, no respiratory distress Abdominal Exam: normal bowel sounds, non tender, soft Extremities: non-tender Luis Arechiga NP Feb 27, 2019 10:24
--- NOTE | 2019-02-27 10:43 | Infectious Diseases Prog Note ---
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 RECOMMENDATION: We will continue with cefepime Wound care Will f/u abdominal US Subjective ROS Limited/Unobtainable: Yes Musculoskeletal: Reports: no symptoms Allergies: Coded Allergies: ALLOPURINOL (Verified Allergy, Unknown, 12/20/18) Objective Vital Signs Last 24 Hour Vital Signs Date Time Temp Pulse Resp B/P (MAP) Pulse Ox O2 Delivery O2 Flow Rate FiO2 02/27/19 09:00 Nasal Cannula 2.0 02/27/19 08:00 69 02/27/19 08:00 97.7 70 20 131/60 (83) 100 02/27/19 04:00 98.3 70 18 134/79 (97) 97 02/27/19 04:00 71 02/27/19 00:00 77 02/27/19 00:00 98.3 72 18 140/62 (88) 99 02/26/19 21:00 Nasal Cannula 2.0 02/26/19 20:00 97.4 76 18 135/62 (86) 100 02/26/19 20:00 75 02/26/19 19:00 98 Nasal Cannula 2.0 28 02/26/19 16:00 97.7 72 20 130/68 (88) 100 02/26/19 16:00 81 02/26/19 12:00 80 02/26/19 12:00 98.3 70 20 139/69 (92) 100 Height (Feet): 5 Height (Inches): 7.00 Weight (Pounds): 198 General Appearance: no acute distress HEENT: mucous membranes moist Respiratory/Chest: lungs clear Cardiovascular: normal rate Abdomen: soft, non tender, other - GT feeding, s/p colostomy Extremities: no edema Neurologic/Psychiatric: alert, responsive Laboratory Tests Test 02/26/19 11:00 02/27/19 06:20 Phosphorus Level 2.1 MG/DL (2.5-4.9) L 2.4 MG/DL (2.5-4.9) L Magnesium Level 1.7 MG/DL (1.8-2.4) L 2.2 MG/DL (1.8-2.4) Total Bilirubin 0.4 MG/DL (0.2-1.0) Direct Bilirubin 0.1 MG/DL (0.0-0.3) Aspartate Amino Transf (AST/SGOT) 11 U/L (15-37) L Alanine Aminotransferase (ALT/SGPT) < 6 U/L (12-78) L Alkaline Phosphatase 72 U/L (46-116) Total Protein 7.2 G/DL (6.4-8.2) Albumin 1.4 G/DL (3.4-5.0) L White Blood Count 8.9 K/UL (4.8-10.8) Red Blood Count 3.21 M/UL (4.20-5.40) L Hemoglobin 8.8 G/DL (12.0-16.0) L Hematocrit 28.3 % (37.0-47.0) L Mean Corpuscular Volume 88 FL (80-99) Mean Corpuscular Hemoglobin 27.4 PG (27.0-31.0) Mean Corpuscular Hemoglobin Concent 31.0 G/DL (32.0-36.0) L Red Cell Distribution Width 16.5 % (11.6-14.8) H Platelet Count 216 K/UL (150-450) Mean Platelet Volume 7.9 FL (6.5-10.1) Neutrophils (%) (Auto) 50.8 % (45.0-75.0) Lymphocytes (%) (Auto) 42.5 % (20.0-45.0) Monocytes (%) (Auto) 4.4 % (1.0-10.0) Eosinophils (%) (Auto) 1.8 % (0.0-3.0) Basophils (%) (Auto) 0.6 % (0.0-2.0) Sodium Level 139 MMOL/L (136-145) Potassium Level 4.0 MMOL/L (3.5-5.1) Chloride Level 109 MMOL/L (98-107) H Carbon Dioxide Level 23 MMOL/L (21-32) Anion Gap 7 mmol/L (5-15) Blood Urea Nitrogen 17 mg/dL (7-18) Creatinine 1.0 MG/DL (0.55-1.30) Estimat Glomerular Filtration Rate mL/min (>60) Glucose Level 145 MG/DL (74-106) H Calcium Level 8.6 MG/DL (8.5-10.1) Current Medications Medications (Trade) Dose Ordered Sig/Nora Route PRN Reason Start Time Stop Time Status Last Admin Dose Admin Acetaminophen (Tylenol) 650 mg Q4H PRN ORAL Mild Pain/Temp > 100.5 02/26/19 11:45 03/26/19 22:14 02/27/19 01:53 Aspirin (Ecotrin) 81 mg DAILY ORAL 02/24/19 09:00 03/21/19 12:29 02/27/19 09:11 Atorvastatin Calcium (Lipitor) 40 mg BEDTIME ORAL 02/23/19 21:00 03/21/19 20:59 02/26/19 22:10 Cefepime HCl 1 gm/ Sodium Chloride 55 ml @ 110 mls/hr DAILY IVPB 02/24/19 09:00 03/04/19 08:59 02/27/19 09:38 Dextrose 1,000 ml @ 50 mls/hr Q20H IV 02/24/19 16:15 03/23/19 10:59 02/26/19 22:38 Dextrose (Dextrose 50%) 25 ml Q30M PRN IV Hypoglycemia 02/23/19 16:30 03/21/19 08:59 Dextrose (Dextrose 50%) 50 ml Q30M PRN IV Hypoglycemia 02/23/19 16:30 03/21/19 08:59 Enoxaparin Sodium (Lovenox) 40 mg DAILY SUBQ 02/26/19 09:00 03/28/19 08:59 02/27/19 09:14 Insulin Aspart (NovoLOG) EVERY 6 HOURS SUBQ 02/23/19 18:00 03/21/19 11:29 02/27/19 06:22 Insulin Detemir (Levemir) 8 units BID SUBQ 02/25/19 09:00 03/21/19 08:59 02/27/19 09:15 Lansoprazole (Prevacid) 30 mg BID GT 02/23/19 18:00 03/25/19 17:59 02/27/19 09:11 Olanzapine (ZyPREXA) 2.5 mg BEDTIME ORAL 02/23/19 21:00 03/25/19 20:59 02/26/19 22:09 Roland Navarro MD Feb 27, 2019 10:43
--- NOTE | 2019-02-27 10:54 | Diagnostic Imaging Report ---
Indication: Abdominal pain Technique: Grayscale and duplex Doppler imaging of the abdomen performed. Comparison: None Findings: The liver is unremarkable. Doppler interrogation of the main portal vein shows patency with hepatopedal, monophasic flow. There is no biliary ductal dilatation identified. CBD is 3.8 mm. Gallbladder is not seen. There demonstrated part of the pancreas, aorta and IVC show no definite abnormalities. There is suggestion of mild right hydroureteronephrosis. With suggestion of shadowing focus centrally likely a renal calculus. There is suggestion of renal calculi in the left kidney with no hydronephrosis. There are multiple renal cysts noted bilaterally. Urinary bladder is unremarkable. Please refer to the recent CT 02/18/2019. IMPRESSION: Mild right hydronephrosis with suggestion of bilateral intrarenal calculi. Please refer to the recent CT report. Multiple bilateral renal cysts. Apparent cholecystectomy Limited evaluation as patient was combative
--- NOTE | 2019-02-27 11:03 | NUR ---
NURSE NOTES: Per Dr. Navarro, MRSA, ESBL colonized. Order noted, entered, carried out.
--- NOTE | 2019-02-27 11:04 | NUR ---
NURSE NOTES: Called [facility] tele : [phone], nurse to nurse report given to HELEN ROBB. Patient room number 3-1. Per Dr. Navarro, discontinue cefepime, no abx needed at this time. Patient family member, Vasu, made aware of discharge.
[2019-02-27 12:00] VITALS: BP 146/62
--- NOTE | 2019-02-27 12:20 | Hematology/Onc Progress Note ---
Assessment/Plan Assessment/Plan Assessment and Recs: # Anemia of chronic disease due to underlying chronic medical issues, multifactorial, ferritin 366, tibc 144 --> Anemia workup has been reviewed --> No evidence of hemolysis is noted, peripheral smear has been reviewed. --> Hgb goal >7. Transfuse prn. --> Iron iv is okay x 5 days total --> Medications have been reviewed --> low threshold for gi evaluation in case has occult + --> Hgb trend:>8.4-->8-->7.3-->7.7-->8.7-->9.5-->10.3-->8.8 --> tolerated 1 unit on 02/22 # Recanalized dvt of the right lower extremity --> given it has healed/recanalized, is not acute okay for just heparin sq prophylactic dosing --> continue lovenox for dvt ppx # Leukocytosis/elevated white blood cell count, is due to underlying sepsis urine infection+ --> Currently resolved --> ID is following, appreciate recs --> have reviewed peripheral smear and bandemia/neutrophilia noted --> continue antibiotics per ID cefepime/vanc --> monitor for resolution --> trend 17.4-->11.2-->8.3 -->12-->8.6-->8.2-->8.9 # Respiratory failure with hypoxia --> Currently on NC 12/28 --> pulm eval --> prior intubation 12/2018 # Sacral decubitus ulcer, stage IV --> per surg, wound care # HCAP (healthcare-associated pneumonia) --> sp abx # ARF (acute renal failure) --> per renal # Hyperglycemia due to type 2 diabetes mellitus --> per endo # Acute metabolic encephalopathy --> better # Severe dehydration # DVT pxx with lovenox (since 02/25) The timing of this note does not necessarily reflect the time of the patient was seen. GREATLY APPRECIATE CONSULTATION. Subjective Hematologic/Lymphatic: Reports: anemia Allergies: Coded Allergies: ALLOPURINOL (Verified Allergy, Unknown, 12/20/18) All Systems: reviewed and negative except above Subjective 02/19: icu, labs reviewed, bs is better today, on abx 02/20: on cefepime and have discontinued vanc, no bleeding noted, hgb reviewed 02/21: on abx, vs stable, denies pain, no distress 02/22: no events, potential dc to snf, pending clearance, gtube dependent 02/23: on nc, femoral line removed, on abx 02/25: remains on tube feeds, seen by cards, h/h better 02/26: remains altered, on tube feeds, mild debridement, no events 02/27: no overnight events, labs reviewed, h/h stable, dc planning per primary Objective Objective Current Medications Medications (Trade) Dose Ordered Sig/Nora Route PRN Reason Start Time Stop Time Status Last Admin Dose Admin Acetaminophen (Tylenol) 650 mg Q4H PRN ORAL Mild Pain/Temp > 100.5 02/26/19 11:45 03/26/19 22:14 02/27/19 01:53 Aspirin (Ecotrin) 81 mg DAILY ORAL 02/24/19 09:00 03/21/19 12:29 02/27/19 09:11 Atorvastatin Calcium (Lipitor) 40 mg BEDTIME ORAL 02/23/19 21:00 03/21/19 20:59 02/26/19 22:10 Dextrose 1,000 ml @ 50 mls/hr Q20H IV 02/24/19 16:15 03/23/19 10:59 02/26/19 22:38 Dextrose (Dextrose 50%) 25 ml Q30M PRN IV Hypoglycemia 02/23/19 16:30 03/21/19 08:59 Dextrose (Dextrose 50%) 50 ml Q30M PRN IV Hypoglycemia 02/23/19 16:30 03/21/19 08:59 Enoxaparin Sodium (Lovenox) 40 mg DAILY SUBQ 02/26/19 09:00 03/28/19 08:59 02/27/19 09:14 Insulin Aspart (NovoLOG) EVERY 6 HOURS SUBQ 02/23/19 18:00 03/21/19 11:29 02/27/19 06:22 Insulin Detemir (Levemir) 8 units BID SUBQ 02/25/19 09:00 03/21/19 08:59 02/27/19 09:15 Lansoprazole (Prevacid) 30 mg BID GT 02/23/19 18:00 03/25/19 17:59 02/27/19 09:11 Olanzapine (ZyPREXA) 2.5 mg BEDTIME ORAL 02/23/19 21:00 03/25/19 20:59 02/26/19 22:09 Last 24 Hour Vital Signs Date Time Temp Pulse Resp B/P (MAP) Pulse Ox O2 Delivery O2 Flow Rate FiO2 02/27/19 09:00 Nasal Cannula 2.0 02/27/19 08:00 69 02/27/19 08:00 97.7 70 20 131/60 (83) 100 02/27/19 04:00 98.3 70 18 134/79 (97) 97 02/27/19 04:00 71 02/27/19 00:00 77 02/27/19 00:00 98.3 72 18 140/62 (88) 99 02/26/19 21:00 Nasal Cannula 2.0 02/26/19 20:00 97.4 76 18 135/62 (86) 100 02/26/19 20:00 75 02/26/19 19:00 98 Nasal Cannula 2.0 28 02/26/19 16:00 97.7 72 20 130/68 (88) 100 02/26/19 16:00 81 02/26/19 12:00 80 02/26/19 12:00 98.3 70 20 139/69 (92) 100 02/26/19 09:00 Nasal Cannula 2.0 02/26/19 08:00 98.6 68 20 138/68 (91) 100 02/26/19 08:00 79 02/26/19 04:00 99.9 81 19 124/76 (92) 95 02/26/19 04:00 88 02/26/19 00:00 93 02/26/19 00:00 98.7 84 19 121/54 (76) 100 02/25/19 21:00 Nasal Cannula 2.0 02/25/19 20:00 81 02/25/19 20:00 98.4 80 18 119/52 (74) 100 02/25/19 19:00 98 Nasal Cannula 2.0 28 02/25/19 19:00 90 18 98 Nasal Cannula 2.0 28 02/25/19 16:00 80 02/25/19 16:00 97.6 77 18 126/65 (85) 100 Intake and Output 02/26/19 02/27/19 19:00 07:00 Intake Total 390 ml Output Total 400 ml 1270 ml Balance -400 ml -880 ml Tube Feeding 30 ml Other 360 ml Output Urine Total 400 ml 920 ml Stool Total 350 ml Labs Test 02/25/19 05:10 02/26/19 11:00 02/27/19 06:20 White Blood Count 7.8 K/UL (4.8-10.8) 8.9 K/UL (4.8-10.8) Red Blood Count 3.73 M/UL (4.20-5.40) 3.21 M/UL (4.20-5.40) Hemoglobin 10.3 G/DL (12.0-16.0) 8.8 G/DL (12.0-16.0) Hematocrit 32.9 % (37.0-47.0) 28.3 % (37.0-47.0) Mean Corpuscular Volume 88 FL (80-99) 88 FL (80-99) Mean Corpuscular Hemoglobin 27.5 PG (27.0-31.0) 27.4 PG (27.0-31.0) Mean Corpuscular Hemoglobin Concent 31.2 G/DL (32.0-36.0) 31.0 G/DL (32.0-36.0) Red Cell Distribution Width 16.3 % (11.6-14.8) 16.5 % (11.6-14.8) Platelet Count 156 K/UL (150-450) 216 K/UL (150-450) Mean Platelet Volume 9.6 FL (6.5-10.1) 7.9 FL (6.5-10.1) Neutrophils (%) (Auto) 61.7 % (45.0-75.0) 50.8 % (45.0-75.0) Lymphocytes (%) (Auto) 32.4 % (20.0-45.0) 42.5 % (20.0-45.0) Monocytes (%) (Auto) 4.1 % (1.0-10.0) 4.4 % (1.0-10.0) Eosinophils (%) (Auto) 1.5 % (0.0-3.0) 1.8 % (0.0-3.0) Basophils (%) (Auto) 0.4 % (0.0-2.0) 0.6 % (0.0-2.0) Sodium Level 141 MMOL/L (136-145) 139 MMOL/L (136-145) Potassium Level 4.4 MMOL/L (3.5-5.1) 4.0 MMOL/L (3.5-5.1) Chloride Level 111 MMOL/L (98-107) 109 MMOL/L (98-107) Carbon Dioxide Level 23 MMOL/L (21-32) 23 MMOL/L (21-32) Anion Gap 7 mmol/L (5-15) 7 mmol/L (5-15) Blood Urea Nitrogen 20 mg/dL (7-18) 17 mg/dL (7-18) Creatinine 1.1 MG/DL (0.55-1.30) 1.0 MG/DL (0.55-1.30) Estimat Glomerular Filtration Rate mL/min (>60) mL/min (>60) Glucose Level 183 MG/DL (74-106) 145 MG/DL (74-106) Calcium Level 8.6 MG/DL (8.5-10.1) 8.6 MG/DL (8.5-10.1) Phosphorus Level 2.1 MG/DL (2.5-4.9) 2.4 MG/DL (2.5-4.9) Magnesium Level 1.7 MG/DL (1.8-2.4) 2.2 MG/DL (1.8-2.4) Total Bilirubin 0.4 MG/DL (0.2-1.0) Direct Bilirubin 0.1 MG/DL (0.0-0.3) Aspartate Amino Transf (AST/SGOT) 11 U/L (15-37) Alanine Aminotransferase (ALT/SGPT) < 6 U/L (12-78) Alkaline Phosphatase 72 U/L (46-116) Total Protein 7.2 G/DL (6.4-8.2) Albumin 1.4 G/DL (3.4-5.0) Height (Feet): 5 Height (Inches): 7.00 Weight (Pounds): 198 Objective General Appearance: severe distress, lethargic, Chronically Ill Head: normocephalic, atraumatic Eyes: bilateral eye PERRL, bilateral eye EOMI ENT: dry mucus membranes Neck: full range of motion, supple, no meningismus Respiratory: chest non-tender, respiratory distress, rhonchi. CPAP+ Cardiovascular: regular rate, rhythm, no murmur, tachycardia Gastrointestinal: normal bowel sounds, non tender- Reducible abdominal wall hernia. COLOSTOMY+, GT++ Rectal: other - large sacral Stage 4 ulcer Tobin Stover MD Feb 27, 2019 12:20
--- NOTE | 2019-02-27 12:40 | Nephrology Progress Note ---
Assessment/Plan Problem List: (1) Renal failure (ARF), acute on chronic (2) Hypotension (3) Anemia (4) Colostomy status (5) PEG (percutaneous endoscopic gastrostomy) status (6) Electrolyte imbalance Assessment Acute renal failure ? Underlying CKD Severe Dehydration Hyperglycemia- DM OOC A1c High Severe underlying Anemia Electrolyte imbalance UTI PEG Colostomy Severe HypoAlbuminemia Plan Plan; K and Phos and Mag supplement as needed stop D5W Hydrate Glucose check Albumin bolus as needed K mag Phos supplement as needed monitor lytes, and H&H Per orders med surg ? DC Subjective ROS Limited/Unobtainable: No Constitutional: Reports: malaise Objective Objective Last 24 Hour Vital Signs Date Time Temp Pulse Resp B/P (MAP) Pulse Ox O2 Delivery O2 Flow Rate FiO2 02/27/19 09:00 Nasal Cannula 2.0 02/27/19 08:00 69 02/27/19 08:00 97.7 70 20 131/60 (83) 100 02/27/19 04:00 98.3 70 18 134/79 (97) 97 02/27/19 04:00 71 02/27/19 00:00 77 02/27/19 00:00 98.3 72 18 140/62 (88) 99 02/26/19 21:00 Nasal Cannula 2.0 02/26/19 20:00 97.4 76 18 135/62 (86) 100 02/26/19 20:00 75 02/26/19 19:00 98 Nasal Cannula 2.0 28 02/26/19 16:00 97.7 72 20 130/68 (88) 100 02/26/19 16:00 81 Intake and Output 02/26/19 02/27/19 19:00 07:00 Intake Total 390 ml Output Total 400 ml 1270 ml Balance -400 ml -880 ml Tube Feeding 30 ml Other 360 ml Output Urine Total 400 ml 920 ml Stool Total 350 ml Laboratory Tests 02/27/19 06:20: White Blood Count 8.9, Red Blood Count 3.21L, Hemoglobin 8.8L, Hematocrit 28.3L , Mean Corpuscular Volume 88, Mean Corpuscular Hemoglobin 27.4, Mean Corpuscular Hemoglobin Concent 31.0L, Red Cell Distribution Width 16.5H, Platelet Count 216, Mean Platelet Volume 7.9, Neutrophils (%) (Auto) 50.8, Lymphocytes (%) (Auto) 42.5, Monocytes (%) (Auto) 4.4, Eosinophils (%) (Auto) 1.8, Basophils (%) (Auto) 0.6, Sodium Level 139, Potassium Level 4.0, Chloride Level 109H, Carbon Dioxide Level 23, Anion Gap 7, Blood Urea Nitrogen 17, Creatinine 1.0, Estimat Glomerular Filtration Rate , Glucose Level 145H, Calcium Level 8.6, Phosphorus Level 2.4L, Magnesium Level 2.2 Height (Feet): 5 Height (Inches): 7.00 Weight (Pounds): 198 General Appearance: no apparent distress Cardiovascular: normal rate Abdomen: soft Objective no change Servando Cifuentes MD Feb 27, 2019 12:40
--- NOTE | 2019-02-27 13:02 | Surgery Progress Note ---
Surgery Progress Note Subjective Additional Comments no acute events labs okay exam stable dressings changed. wound improving Objective Last 24 Hour Vital Signs Date Time Temp Pulse Resp B/P (MAP) Pulse Ox O2 Delivery O2 Flow Rate FiO2 02/27/19 09:00 Nasal Cannula 2.0 02/27/19 08:00 69 02/27/19 08:00 97.7 70 20 131/60 (83) 100 02/27/19 04:00 98.3 70 18 134/79 (97) 97 02/27/19 04:00 71 02/27/19 00:00 77 02/27/19 00:00 98.3 72 18 140/62 (88) 99 02/26/19 21:00 Nasal Cannula 2.0 02/26/19 20:00 97.4 76 18 135/62 (86) 100 02/26/19 20:00 75 02/26/19 19:00 98 Nasal Cannula 2.0 28 02/26/19 16:00 97.7 72 20 130/68 (88) 100 02/26/19 16:00 81 I&O Intake and Output 02/26/19 02/27/19 19:00 07:00 Intake Total 390 ml Output Total 400 ml 1270 ml Balance -400 ml -880 ml Tube Feeding 30 ml Other 360 ml Output Urine Total 400 ml 920 ml Stool Total 350 ml Dressing: saturated Wound: clean Cardiovascular: RSR Respiratory: clear Abdomen: soft, flat, non-tender, present bowel sounds, non-distended Extremities: no cyanosis Laboratory Tests Test 02/27/19 06:20 White Blood Count 8.9 K/UL (4.8-10.8) Red Blood Count 3.21 M/UL (4.20-5.40) L Hemoglobin 8.8 G/DL (12.0-16.0) L Hematocrit 28.3 % (37.0-47.0) L Mean Corpuscular Volume 88 FL (80-99) Mean Corpuscular Hemoglobin 27.4 PG (27.0-31.0) Mean Corpuscular Hemoglobin Concent 31.0 G/DL (32.0-36.0) L Red Cell Distribution Width 16.5 % (11.6-14.8) H Platelet Count 216 K/UL (150-450) Mean Platelet Volume 7.9 FL (6.5-10.1) Neutrophils (%) (Auto) 50.8 % (45.0-75.0) Lymphocytes (%) (Auto) 42.5 % (20.0-45.0) Monocytes (%) (Auto) 4.4 % (1.0-10.0) Eosinophils (%) (Auto) 1.8 % (0.0-3.0) Basophils (%) (Auto) 0.6 % (0.0-2.0) Sodium Level 139 MMOL/L (136-145) Potassium Level 4.0 MMOL/L (3.5-5.1) Chloride Level 109 MMOL/L (98-107) H Carbon Dioxide Level 23 MMOL/L (21-32) Anion Gap 7 mmol/L (5-15) Blood Urea Nitrogen 17 mg/dL (7-18) Creatinine 1.0 MG/DL (0.55-1.30) Estimat Glomerular Filtration Rate mL/min (>60) Glucose Level 145 MG/DL (74-106) H Calcium Level 8.6 MG/DL (8.5-10.1) Phosphorus Level 2.4 MG/DL (2.5-4.9) L Magnesium Level 2.2 MG/DL (1.8-2.4) Plan Problems: (1) Decubitus ulcer of sacral region, stage 4 Assessment & Plan: Pt presented on admission with full thickness stage 4 Sacral Pressure Injury with undermining. Bone is palpable. Base of has beefy red granulation with scattered small purple areas. No odor noted .Scant serous exudate noted . Edges pink and flat with some sloth. DTPI noted to lateral R foot. .Base of wound purple and fluctuant in center with surrounding maroon discoloration Non-blanchable erythema with fluctuance noted to posterior and medial R heel. L heel boggy but blanchable. Tx.Plan: Cleanse Sacral wound with Saline. Loosely pack with Hydrogel Impregnated Kerlix. Cover with ABD pads and secure with Paper Tape or Tegaderm Daily and prn. Apply Cavilon Skin Barrier to R and Heel and lateral R heel. Ciover with Optifoam drsg. Change every 7 days and PRN. Apply Cavilon Skin Barrier to L heel. Cover with Optifoam drsg. Change every 7 days and prn. APM/VIJI Mattress Overlay. Reposition at least every 2hours or as tolerated. Off-load heels with Pillow. (2) Sepsis Assessment & Plan: tachycardia, leukocytosis, anemia, abnormal labs, altered status - improving overall wound evaluate and tho not as optimal as prior unlikely etiology of infection wound improving since admission IV abx as per ID cont with current care pland d/c planning trend labs will follow with recs thank you Mauro Morrow Feb 27, 2019 13:02
--- NOTE | 2019-02-27 13:40 | NUR ---
NURSE NOTES: Patient discharged to [facility], tele: [phone], per Dr. Walden. Per Dr. Walden, continue home medication, okay to continue Agarwal Catheter, if O2 sat <90% ,2L oxygen. Patient's ID removed and placed in shredder, IV removed, campus monitor returned to secured entrance monitor. Patient transferred with BLS in a stable condition, no belongings, family member made aware.
--- NOTE | 2019-02-27 16:56 | Consultation ---
DATE OF CONSULTATION: 02/26/2019 PAIN MANAGEMENT CONSULTATION CONSULTING PHYSICIAN: Lam Villa M.D. REFERRING PHYSICIAN: Danial Walden M.D. PHYSICIAN TEST AND TURN UP TECHNICIAN: Jess Ledbetter HISTORY OF PRESENT ILLNESS: This is an 83-year-old female who is being seen on the telemetry floor of [facility] for initial pain management consultation. The patient was admitted under the care of Dr. Walden for altered mental status, acute renal failure, also has sacral decubitus ulcer causing sepsis. She is disoriented at this time, unable to give history. She is in bed showing no signs of pain or distress. As per chart, the patient has a history of CVA and is bedbound. We were consulted so the patient would have adequate pain control while here in the hospital PAST MEDICAL HISTORY: History of CVA, diabetes mellitus, hypertension, COPD, dysphagia, anemia. PAST SURGICAL HISTORY: Colostomy and PEG tube placement. SOCIAL HISTORY: No history of smoking tobacco, drinking alcohol, or IV drug abuse. ALLERGIES: Allopurinol. MEDICATIONS: Tylenol, amino acids, ascorbic acid, folic acid, risperidone, Zinc, acetaminophen, hydralazine, and Zofran. REVIEW OF SYSTEMS: Unable to obtain due the patient's mental status. PHYSICAL EXAMINATION: VITAL SIGNS: Blood pressure 136/68, heart rate 68, oxygen saturation 100%, respiratory rate 17, temperature 98.6 degrees Fahrenheit. HEENT: PERRLA. NECK: Range of motion is full in all directions. No tenderness to paracervical muscles. No adenopathy. LUNGS: Decreased breath sounds bilaterally. HEART: S1 and S2 regular. ABDOMEN: PEG tube noted. BACK: Range of motion is decreased in flexion and extension. EXTREMITIES: Upper and lower extremity range of motion is decreased due to the patient's condition. No cyanosis. No clubbing. Sensory is reduced. Reflexes are not obtainable. No adenopathy. ASSESSMENT: The patient is an 83-year-old female with a history of CVA, sacral decubitus ulcer. The patient will be continued on Tylenol as needed. The patient was discussed with Dr. Villa and Dr. Villa concurred. We will follow the patient. Thank you very much for the courtesy of this consultation. Lam Villa M.D. ANISA Ledbetter DR: Marya JOB#: [id number] CC: JEN
--- NOTE | 2019-02-27 23:50 | Cardiology Progress Note ---
Assessment/Plan Assessment/Plan 1. Sinus tachycardia, resolved, continue hydration. 2. Hypoxemic hypercarbic respiratory failure, pulmonary f/u. 3. Severe hypernatremia secondary volume contraction, resolved. 4. MANUEL, resolved, creat at 1.0. 5. Anemia Subjective Subjective Sinus rhythm at rate of 79. On NC O2. Objective Last 24 Hour Vital Signs Date Time Temp Pulse Resp B/P (MAP) Pulse Ox O2 Delivery O2 Flow Rate FiO2 02/27/19 12:00 79 02/27/19 12:00 97.0 68 18 146/62 (90) 100 02/27/19 09:00 Nasal Cannula 2.0 02/27/19 08:00 69 02/27/19 08:00 97.7 70 20 131/60 (83) 100 02/27/19 04:00 98.3 70 18 134/79 (97) 97 02/27/19 04:00 71 02/27/19 00:00 77 02/27/19 00:00 98.3 72 18 140/62 (88) 99 Intake and Output 02/26/19 02/27/19 18:59 06:59 Output Total 400 ml 920 ml Balance -400 ml -920 ml Output Urine Total 400 ml 920 ml Laboratory Tests Test 02/27/19 06:20 White Blood Count 8.9 K/UL (4.8-10.8) Red Blood Count 3.21 M/UL (4.20-5.40) L Hemoglobin 8.8 G/DL (12.0-16.0) L Hematocrit 28.3 % (37.0-47.0) L Mean Corpuscular Volume 88 FL (80-99) Mean Corpuscular Hemoglobin 27.4 PG (27.0-31.0) Mean Corpuscular Hemoglobin Concent 31.0 G/DL (32.0-36.0) L Red Cell Distribution Width 16.5 % (11.6-14.8) H Platelet Count 216 K/UL (150-450) Mean Platelet Volume 7.9 FL (6.5-10.1) Neutrophils (%) (Auto) 50.8 % (45.0-75.0) Lymphocytes (%) (Auto) 42.5 % (20.0-45.0) Monocytes (%) (Auto) 4.4 % (1.0-10.0) Eosinophils (%) (Auto) 1.8 % (0.0-3.0) Basophils (%) (Auto) 0.6 % (0.0-2.0) Sodium Level 139 MMOL/L (136-145) Potassium Level 4.0 MMOL/L (3.5-5.1) Chloride Level 109 MMOL/L (98-107) H Carbon Dioxide Level 23 MMOL/L (21-32) Anion Gap 7 mmol/L (5-15) Blood Urea Nitrogen 17 mg/dL (7-18) Creatinine 1.0 MG/DL (0.55-1.30) Estimat Glomerular Filtration Rate mL/min (>60) Glucose Level 145 MG/DL (74-106) H Calcium Level 8.6 MG/DL (8.5-10.1) Phosphorus Level 2.4 MG/DL (2.5-4.9) L Magnesium Level 2.2 MG/DL (1.8-2.4) Objective HEENT: normocephalic, atraumatic, bilateral eye PERRL, + dry mucus membranes Neck: - JVD, no carotid bruit Respiratory: crackles bilaterally Cardiovascular: Normal S1S2, no murmurs, gallops or rubs. Gastrointestinal: non tender, soft, non-distended, colostomy bag in the left mid abdomen Musculoskeletal: No edema, clubbing or cyanosis. Logan Arias MD Feb 27, 2019 23:50
--- NOTE | 2019-02-28 19:28 | Discharge Summary ---
Discharge Summary Discharge Summary _ DATE OF ADMISSION: 02/18/2019 DATE OF DISCHARGE: 02/27/2019 DISCHARGED BY: Dr. Danial Dobbins CONSULTANTS: Dr. Roland Morrow BRIEF HOSPITAL COURSE: Patient is an 83-year-old female, who was sent to ED with complaints of change in mental status. Patient's glucose was too high to read at the nursing facility. There was no other report of vomiting or diarrhea. Patient was nonverbal and unable to give a history. On evaluation at the ED, blood work showed WBC 12, hemoglobin 10, hematocrit 36. Sodium level 163. Potassium was elevated to 6.1. Chloride 125. Carbon dioxide 35. Anion gap 4. BUN 119, creatinine 2.2. Glucose was elevated to 918. Acetone level was negative. Urinalyses showed +3 protein, +4 glucose, negative ketones, negative nitrite, +3 leukocyte esterase, 10-15 urine RBC and 2 many to count urine WBC. Patient required central line placement for aggressive hydration and insulin drip. She was started on broad-spectrum antibiotics. She was then admitted to ICU. She was continued on insulin drip. She was given IV fluids. Sodium was elevated. She was given IV dextrose. Blood glucose was closely monitored. She was given O2 support. Patient had hyperglycemia with hemoglobin A1c 10. CT of abdomen showed marked abnormal bladder, with wall thickening, and extensive stranding of the pericystic fat. Gas within the bladder lumen. Gas bubbles at the periphery of the dome of the bladder concerning for intramural gas consistent with emphysematous cystitis. There was a right distal ureteral calculus resulting in moderate right hydronephrosis and hydroureter. Bilateral intrarenal calculi. Extensive retrosacral/retro-coccygeal decubitus changes with possible bone loss. Patient has a known history of stage IV sacral decubitus ulcer. Surgery was called to evaluate and assist with care. She has a full-thickness stage IV sacral pressure injury with undermining. Bone was palpable. She had a deep tissue pressure injury to the lateral right foot with base of wound purple and fluctuant with maroon discoloration. She had non-blanchable erythema with fluctuance to the posterior and medial right heel. Left heel was boggy but blanchable. She was given wound care. She was placed on APM/VIJI mattress overlay with frequent repositioning and offloading. ID was consulted. Patient was given cefepime. Vancomycin was discontinued. Patient has a history of recanalized DVT on the right lower extremity. She was continued on anemia work-up showed ferritin level 619. Serum iron level 14, TIBC 132. He had a drop in hemoglobin down to 7.3. He was given 2 units packed RBC blood transfusion. Patient had tachycardia. EKG done at the ED showed sinus tachycardia at a rate of 109 with nonspecific T wave abnormalities. QT interval was within normal limits initial troponin was and proBNP was 670. Sinus tachycardia was assessed to be secondary from intravascular contraction given severe hyponatremia and renal failure. No AV aristeo agent was indicated. Urologist was consulted. CT scan findings of gas bubbles were likely secondary to catheter. Even if there was a small amount of intramural air consistent with emphysematous pyelonephritis, the patient appeared to have no clinical consequence from the same findings. She was recommended to continue with IV antibiotics. Patient has ureteral stone that was described to be tiny and should pass on its own. Blood glucose improved. Insulin drip was discontinued. She was started on Levemir and NovoLog. She was noted to have altered mental status. Head CT showed chronic age-related changes, negative for acute intracranial bleed or mass-effect. Urine culture showed growth of Morganella. Wound culture with ESBL E. coli, MRSA and Proteus. She was continued on cefepime. She had abdominal showed mild right hydronephrosis, multiple bilateral renal cyst. Electrolytes improved. Kidney function normalized. She was discharged back to [facility]. 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 DISCHARGE MEDICATIONS: Refer to Discharge Medication List. I have been assigned to complete a discharge summary on this account, I was not involved with the patient's management.--DORYS Franks Jacqueline Robles NP Feb 28, 2019 19:28
== END 2019-02-27 13:49 | DRG 871 ==
LOC: EDBD 12:17 → EMR 13:19 → 2W 13:32 → EDBEDREQ 13:37 → EDBEDREQSVC 13:51 → EDBEDREQ 13:53 → EDBEDREQSVC 14:14 → 2E 14:29 → UNDOADMIN 14:29 → EDBEDREQ 16:35 → ICU 20:18 → 2W 02-20 19:00 → 2E 02-23 16:00
PROC: 30233N1 Transfusion of Nonautologous Red Blood Cells into Peripheral Vein, Percutaneous Approach (ICD-10-PCS; principal; 2019-02-20)
DX: A41.9 Sepsis, unspecified organism (principal); L89.154 Pressure ulcer of sacral region, stage 4; G93.41 Metabolic encephalopathy; J96.91 Respiratory failure, unspecified with hypoxia; J96.92 Respiratory failure, unspecified with hypercapnia; N17.9 Acute kidney failure, unspecified; N39.0 Urinary tract infection, site not specified; Z43.1 Encounter for attention to gastrostomy; E87.0 Hyperosmolality and hypernatremia; I82.591 Chronic embolism and thrombosis of other specified deep vein of right lower extremity; N13.2 Hydronephrosis with renal and ureteral calculous obstruction; R65.20 Severe sepsis without septic shock; E86.0 Dehydration; E11.65 Type 2 diabetes mellitus with hyperglycemia; Z88.8 Allergy status to other drugs, medicaments and biological substances; E88.09 Other disorders of plasma-protein metabolism, not elsewhere classified; D63.8 Anemia in other chronic diseases classified elsewhere; Z93.3 Colostomy status; E11.22 Type 2 diabetes mellitus with diabetic chronic kidney disease; N18.9 Chronic kidney disease, unspecified; J44.9 Chronic obstructive pulmonary disease, unspecified; Z79.4 Long term (current) use of insulin; I69.320 Aphasia following cerebral infarction; E87.8 Other disorders of electrolyte and fluid balance, not elsewhere classified; Z86.14 Personal history of Methicillin resistant Staphylococcus aureus infection; R13.10 Dysphagia, unspecified
CPT/HCPCS: 36415; 36600; 70450; 71045; 74176; 76700; 80048; 80053; 80061; 80076; 80202; 81003; 82009; 82140; 82550; 82553; 82607; 82728; 82746; 82803; 82962; 82977; 83036; 83540; 83550; 83690; 83735; 83880; 84100; 84443; 84484; 84550; 85007; 85025; 85610; 85730; 86140; 86850; 86900; 86901; 86920; 87040; 87070; 87081; 87086; 87181; 87205; 93005; 93970; 94640; 94664; 96365; 96366; 96367; 96375; 99291; 99292; J1815; J7620; S5561